=== PATIENT | male | born 1970 | race Caucasian/White ===

== ENCOUNTER 2024-12-10 05:38 | Observation (INO) ==
[2024-12-10 06:46] LABS: Basophils # (auto) 0.05 K/uL (0.00-0.20); Basophils % (auto) 0.5 %; Eosinophils # (auto) 0.07 K/uL (0.00-0.50); Eosinophils % (auto) 0.7 %; Hematocrit (blood only) 34.6 % (42.0-52.0); Hemoglobin 11.4 g/dl (14.0-18.0); Immature Granulocytes # (auto) 0.05 K/uL (0.01-0.20); Immature Granulocytes % (auto) 0.5 %; Lymphocytes # (auto) 1.29 K/uL (1.20-3.40); Lymphocytes % (auto) 13.1 %; Mean Corpuscular Hgb Conc 32.9 g/dL (32.0-36.0); Mean Platelet Volume 10.8 fL (9.4-12.4); Monocytes # (auto) 0.84 K/uL (0.11-0.59); Monocytes % (auto) 8.5 %; Neutrophils # (auto) 7.54 K/uL (1.40-6.50); Neutrophils % (auto) 76.7 %; Platelet Count 389 K/uL (130-400); RDW Coefficient of Variation 14.6 % (11.5-14.5); RDW Standard Deviation 47.8 fL (36.4-46.3); Red Blood Count 3.93 M/uL (4.70-6.10); White Blood Count 9.84 K/ul (4.8-10.8)
[2024-12-10 07:00] LABS: Albumin Globulin Ratio 1.1 (0.9-2); Albumin Level 3.6 gm/dl (3.4-5.0); BUN Creatinine Ratio 14.6 (10-20); Bilirubin,Total 1.3 mg/dl (0.2-1.0); Calcium 9.5 mg/dl (8.6-10.3); Creatinine Clr Calc Pharmacy 93.2 ml/min; Globulin 3.2 gm/dl (2.5-4.0); Potassium 4.8 mmol/L (3.5-5.1); Total Protein 6.8 gm/dl (6.0-8.3)
[2024-12-10] MEDS: ACETAMINOPHEN 1,000 MG/100 ML VIAL IV STA (07:04)
[2024-12-10] MEDS: OPTIRAY 320 100ml IV ONE (07:09)
[2024-12-10 07:25] LABS: INR 3.8 (0.9-1.1); Partial Thromboplastin Time 55 Seconds (21-31); Prothrombin Time 36.3 Seconds (9.0-12.0)
--- NOTE | 2024-12-10 07:33 | Emergency Department Note ---
History of Present Illness General Chief Complaint: Abdominal Pain Stated Complaint: ABDOMINAL PAIN AND SWELLING, HX OF OBSTRUCTIONS Time Seen by Provider: 12/10/24 06:33 History of Present Illness Provider Complaint: abdominal pain Onset (ago): 1 day(s) Location: RUQ Maximum Pain Intensity: 3 Current Pain Intensity: 3 Quality: + stabbing and + sharp Relieved By: + nothing Exacerbated By: + nothing Context: no foreign travel, no possible food poisoning, no sick contacts, no recent antibiotic use, no recent surgery/procedure or no recent injury Associated Symptoms: no nausea, no vomiting, no fever and no chills Home Medications Medication Instructions Recorded Confirmed Type Dextrose 50% 12.5 g IV DIRECTED PRN 12/10/24 12/10/24 History Hypoglycemia Dextrose 50% 25 g IV DIRECTED PRN 12/10/24 12/10/24 History Hypoglycemia Fleet Enema 133 ml [place] DAILY PRN Constipation 12/10/24 12/10/24 History acetaminophen 325 mg tablet 650 mg PO Q4H PRN Pain 12/10/24 12/10/24 History acetaminophen 500 mg tablet 500 mg PO Q4H PRN Fever 12/10/24 12/10/24 History amlodipine 10 mg tablet 2.5 mg PO DAILY 12/10/24 12/10/24 History atorvastatin 40 mg tablet 40 mg PO DAILY 12/10/24 12/10/24 History baclofen 10 mg tablet 10 mg PO DAILY 12/10/24 12/10/24 History bisacodyl 10 mg rectal suppository 10 mg [place] DAILY PRN Constipation 12/10/24 12/10/24 History calcium carbonate 500 mg PO Q8H PRN Indigestion 12/10/24 12/10/24 History docusate sodium 100 mg capsule 100 mg PO BID PRN Constipation 12/10/24 12/10/24 History glucagon 1 mg solution for 1 mg IM DIRECTED PRN 12/10/24 12/10/24 History injection Hypoglycemia lisinopril 5 mg tablet 5 mg PO DAILY 12/10/24 12/10/24 History ondansetron HCl 4 mg tablet 4 mg PO Q6H PRN n/v 12/10/24 12/10/24 History polyethylene glycol 3350 17 17 g PO .LUNCH PRN Constipation 12/10/24 12/10/24 History gram/dose oral powder (Miralax) sennosides 8.6 mg-docusate sodium 1 tab-cap PO .LUNCH PRN 12/10/24 12/10/24 History 50 mg tablet (Senokot-S) Constipation tamsulosin 0.4 mg capsule 0.4 mg PO DAILY 12/10/24 12/10/24 History venlafaxine 75 mg capsule,extended 75 mg PO DAILY 12/10/24 12/10/24 History release 24 hr warfarin 5 mg tablet 5 mg PO UD 12/10/24 12/10/24 History Allergies Allergy/AdvReac Type Severity Reaction Status Date / Time bee venom protein (honey bee) Allergy Unknown Verified 12/10/24 09:58 Cephalosporins Allergy Unknown Verified 12/10/24 09:58 penicillin G Allergy Unknown Verified 12/10/24 09:58 Past Med/Surg History Problem List (Updated 12/10/24 @ 10:29 by Jarad Pablo PA-C) H/O ischemic left MCA stroke Abdominal hematoma (Acute) Medical History (Updated 12/10/24 @ 10:29 by Jarad Pablo PA-C) CVA (cerebral vascular accident) Surgical History (Updated 12/10/24 @ 07:31 by Carson Sánchez MD) Mechanical heart valve present Social History Smoking Status: Never smoker Feels Safe at Home: Yes Physical Exam 2 Vital Signs: Vital Signs - 24 hr 12/10/24 05:43 12/10/24 05:43 12/10/24 05:46 Temperature Temperature Source Pulse Rate 92 H Pulse Rate [Right Finger] Pulse Rate from Sp O2 Sensor Pulse Rhythm [Righ t Finger] Pulse Strength [Ri ght Finger] Respiratory Rate Respiratory Effort / Characteristics Respiratory Depth Respiratory Patter n Blood Pressure 144/111 H 144/111 H Blood Pressure [Ri ght Arm] Blood Pressure Alesia n 117 117 Blood Pressure Alesia n [Right Arm] Blood Pressure Pos ition Blood Pressure Pos ition [Right Arm] Pulse Oximetry Oxygen Delivery Me thod Oxygen Flow Rate Sepsis Recent Feve r Within 48 Hours Sepsis New/Unexpla ined Change in Men cassandra Status Sepsis Action Take n by Nursing 12/10/24 06:00 12/10/24 06:15 12/10/24 06:15 Temperature 36.6 C Temperature Source Oral Pulse Rate 79 92 H Pulse Rate [Right Finger] 82 Pulse Rate from Sp O2 Sensor 78 Pulse Rhythm [Righ t Finger] Regular Pulse Strength [Ri ght Finger] Normal Respiratory Rate 30 H 30 H 17 Respiratory Effort / Characteristics Spontaneous Non-Labored [place] Respiratory Depth Normal Normal Respiratory Patter n Regular Regular Blood Pressure 144/111 H Blood Pressure [Ri ght Arm] 144/111 H Blood Pressure Alesia n 122 Blood Pressure Alesia n [Right Arm] 122 Blood Pressure Pos ition Lying Blood Pressure Pos ition [Right Arm] Lying Pulse Oximetry 90 100 94 Oxygen Delivery Me thod Oxymask Room Air Oxygen Flow Rate 4 Sepsis Recent Feve r Within 48 Hours No Sepsis New/Unexpla ined Change in Men cassandra Status No Sepsis Action Take n by Nursing No Action Required 12/10/24 06:15 12/10/24 06:30 12/10/24 06:42 Temperature Temperature Source Pulse Rate 82 82 95 H Pulse Rate [Right Finger] Pulse Rate from Sp O2 Sensor 83 95 H Pulse Rhythm [Righ t Finger] Pulse Strength [Ri ght Finger] Respiratory Rate 14 24 27 H Respiratory Effort / Characteristics Respiratory Depth Respiratory Patter n Blood Pressure Blood Pressure [Ri ght Arm] Blood Pressure Alesia n Blood Pressure Alesia n [Right Arm] Blood Pressure Pos ition Blood Pressure Pos ition [Right Arm] Pulse Oximetry 99 94 99 Oxygen Delivery Me thod Room Air Oxygen Flow Rate Sepsis Recent Feve r Within 48 Hours Sepsis New/Unexpla ined Change in Men cassandra Status Sepsis Action Take n by Nursing 12/10/24 07:08 12/10/24 07:08 12/10/24 07:08 Temperature Temperature Source Pulse Rate Pulse Rate [Right Finger] 93 H Pulse Rate from Sp O2 Sensor Pulse Rhythm [Righ t Finger] Pulse Strength [Ri ght Finger] Respiratory Rate 20 Respiratory Effort / Characteristics Respiratory Depth Respiratory Patter n Blood Pressure 133/92 133/92 Blood Pressure [Ri ght Arm] 133/92 Blood Pressure Alesia n 111 111 Blood Pressure Alesia n [Right Arm] 105 Blood Pressure Pos ition Blood Pressure Pos ition [Right Arm] Pulse Oximetry 99 Oxygen Delivery Me thod Oxymask Oxygen Flow Rate 5 Sepsis Recent Feve r Within 48 Hours Sepsis New/Unexpla ined Change in Men cassandra Status Sepsis Action Take n by Nursing 12/10/24 07:12 12/10/24 07:38 12/10/24 07:38 Temperature Temperature Source Pulse Rate 96 H Pulse Rate [Right Finger] Pulse Rate from Sp O2 Sensor 90 Pulse Rhythm [Righ t Finger] Pulse Strength [Ri ght Finger] Respiratory Rate 18 Respiratory Effort / Characteristics Respiratory Depth Respiratory Patter n Blood Pressure 141/94 H 141/94 H Blood Pressure [Ri ght Arm] Blood Pressure Alesia n 115 115 Blood Pressure Alesia n [Right Arm] Blood Pressure Pos ition Blood Pressure Pos ition [Right Arm] Pulse Oximetry 98 Oxygen Delivery Me thod Oxygen Flow Rate Sepsis Recent Feve r Within 48 Hours Sepsis New/Unexpla ined Change in Men cassandra Status Sepsis Action Take n by Nursing 12/10/24 07:47 12/10/24 07:57 12/10/24 08:00 Temperature Temperature Source Pulse Rate 99 H 97 H Pulse Rate [Right Finger] 96 H Pulse Rate from Sp O2 Sensor 94 H 97 H Pulse Rhythm [Righ t Finger] Pulse Strength [Ri ght Finger] Respiratory Rate 20 25 H 29 H Respiratory Effort / Characteristics Respiratory Depth Respiratory Patter n Blood Pressure Blood Pressure [Ri ght Arm] 141/94 H Blood Pressure Alesia n Blood Pressure Alesia n [Right Arm] 109 Blood Pressure Pos ition Blood Pressure Pos ition [Right Arm] Pulse Oximetry 94 87 L 98 Oxygen Delivery Me thod Oxymask Oxygen Flow Rate 2 Sepsis Recent Feve r Within 48 Hours Sepsis New/Unexpla ined Change in Men cassandra Status Sepsis Action Take n by Nursing 12/10/24 08:00 12/10/24 08:21 12/10/24 08:30 Temperature Temperature Source Pulse Rate 92 H 103 H Pulse Rate [Right Finger] Pulse Rate from Sp O2 Sensor 93 H 100 H Pulse Rhythm [Righ t Finger] Pulse Strength [Ri ght Finger] Respiratory Rate 27 H 23 Respiratory Effort / Characteristics Respiratory Depth Respiratory Patter n Blood Pressure 142/95 H Blood Pressure [Ri ght Arm] Blood Pressure Alesia n 100 Blood Pressure Alesia n [Right Arm] Blood Pressure Pos ition Blood Pressure Pos ition [Right Arm] Pulse Oximetry 96 100 Oxygen Delivery Me thod Oxygen Flow Rate Sepsis Recent Feve r Within 48 Hours Sepsis New/Unexpla ined Change in Men cassandra Status Sepsis Action Take n by Nursing 12/10/24 08:31 12/10/24 08:31 12/10/24 08:32 Temperature Temperature Source Pulse Rate Pulse Rate [Right Finger] 93 H Pulse Rate from Sp O2 Sensor Pulse Rhythm [Righ t Finger] Pulse Strength [Ri ght Finger] Respiratory Rate 20 Respiratory Effort / Characteristics Respiratory Depth Respiratory Patter n Blood Pressure 150/100 H 150/100 H Blood Pressure [Ri ght Arm] 150/100 H Blood Pressure Alesia n 126 126 Blood Pressure Alesia n [Right Arm] 116 Blood Pressure Pos ition Blood Pressure Pos ition [Right Arm] Pulse Oximetry 97 Oxygen Delivery Me thod Oxymask Oxygen Flow Rate 2 Sepsis Recent Feve r Within 48 Hours Sepsis New/Unexpla ined Change in Men cassandra Status Sepsis Action Take n by Nursing 12/10/24 08:42 12/10/24 08:51 12/10/24 08:57 Temperature Temperature Source Pulse Rate 94 H 95 H 90 Pulse Rate [Right Finger] Pulse Rate from Sp O2 Sensor 94 H 94 H 89 Pulse Rhythm [Righ t Finger] Pulse Strength [Ri ght Finger] Respiratory Rate 28 H 25 H 28 H Respiratory Effort / Characteristics Respiratory Depth Respiratory Patter n Blood Pressure Blood Pressure [Ri ght Arm] Blood Pressure Alesia n Blood Pressure Alesia n [Right Arm] Blood Pressure Pos ition Blood Pressure Pos ition [Right Arm] Pulse Oximetry 97 98 97 Oxygen Delivery Me thod Oxygen Flow Rate Sepsis Recent Feve r Within 48 Hours Sepsis New/Unexpla ined Change in Men cassandra Status Sepsis Action Take n by Nursing 12/10/24 09:00 12/10/24 09:00 12/10/24 09:06 Temperature Temperature Source Pulse Rate 92 H Pulse Rate [Right Finger] Pulse Rate from Sp O2 Sensor 90 Pulse Rhythm [Righ t Finger] Pulse Strength [Ri ght Finger] Respiratory Rate 25 H Respiratory Effort / Characteristics Respiratory Depth Respiratory Patter n Blood Pressure 133/95 133/95 Blood Pressure [Ri ght Arm] Blood Pressure Alesia n 105 105 Blood Pressure Alesia n [Right Arm] Blood Pressure Pos ition Blood Pressure Pos ition [Right Arm] Pulse Oximetry 97 Oxygen Delivery Me thod Oxygen Flow Rate Sepsis Recent Feve r Within 48 Hours Sepsis New/Unexpla ined Change in Men cassandra Status Sepsis Action Take n by Nursing 12/10/24 09:12 12/10/24 09:21 12/10/24 09:30 Temperature Temperature Source Pulse Rate 90 94 H Pulse Rate [Right Finger] 89 Pulse Rate from Sp O2 Sensor 88 91 H Pulse Rhythm [Righ t Finger] Pulse Strength [Ri ght Finger] Respiratory Rate 20 26 H 24 Respiratory Effort / Characteristics Respiratory Depth Respiratory Patter n Blood Pressure Blood Pressure [Ri ght Arm] 133/95 Blood Pressure Alesia n Blood Pressure Alesia n [Right Arm] 107 Blood Pressure Pos ition Blood Pressure Pos ition [Right Arm] Pulse Oximetry 98 94 97 Oxygen Delivery Me thod Oxymask Oxygen Flow Rate 2 Sepsis Recent Feve r Within 48 Hours Sepsis New/Unexpla ined Change in Men cassandra Status Sepsis Action Take n by Nursing 12/10/24 09:34 12/10/24 09:34 12/10/24 09:36 Temperature Temperature Source Pulse Rate 90 Pulse Rate [Right Finger] Pulse Rate from Sp O2 Sensor 89 Pulse Rhythm [Righ t Finger] Pulse Strength [Ri ght Finger] Respiratory Rate 25 H Respiratory Effort / Characteristics Respiratory Depth Respiratory Patter n Blood Pressure 133/93 133/93 Blood Pressure [Ri ght Arm] Blood Pressure Alesia n 106 106 Blood Pressure Alesia n [Right Arm] Blood Pressure Pos ition Blood Pressure Pos ition [Right Arm] Pulse Oximetry 97 Oxygen Delivery Me thod Oxygen Flow Rate Sepsis Recent Feve r Within 48 Hours Sepsis New/Unexpla ined Change in Men cassandra Status Sepsis Action Take n by Nursing 12/10/24 09:52 12/10/24 10:00 12/10/24 10:00 Temperature Temperature Source Pulse Rate 87 Pulse Rate [Right Finger] Pulse Rate from Sp O2 Sensor Pulse Rhythm [Righ t Finger] Pulse Strength [Ri ght Finger] Respiratory Rate Respiratory Effort / Characteristics Respiratory Depth Respiratory Patter n Blood Pressure 136/98 136/98 Blood Pressure [Ri ght Arm] Blood Pressure Alesia n 106 106 Blood Pressure Alesia n [Right Arm] Blood Pressure Pos ition Blood Pressure Pos ition [Right Arm] Pulse Oximetry Oxygen Delivery Me thod Oxygen Flow Rate Sepsis Recent Feve r Within 48 Hours Sepsis New/Unexpla ined Change in Men cassandra Status Sepsis Action Take n by Nursing 12/10/24 10:00 12/10/24 10:00 12/10/24 10:03 Temperature Temperature Source Pulse Rate 86 Pulse Rate [Right Finger] Pulse Rate from Sp O2 Sensor 81 Pulse Rhythm [Righ t Finger] Pulse Strength [Ri ght Finger] Respiratory Rate 27 H Respiratory Effort / Characteristics Respiratory Depth Respiratory Patter n Blood Pressure 136/98 136/98 Blood Pressure [Ri ght Arm] Blood Pressure Alesia n 106 106 Blood Pressure Alesia n [Right Arm] Blood Pressure Pos ition Blood Pressure Pos ition [Right Arm] Pulse Oximetry 98 Oxygen Delivery Me thod Oxygen Flow Rate Sepsis Recent Feve r Within 48 Hours Sepsis New/Unexpla ined Change in Men cassandra Status Sepsis Action Take n by Nursing 12/10/24 10:18 12/10/24 10:30 12/10/24 10:30 Temperature Temperature Source Pulse Rate 86 87 Pulse Rate [Right Finger] Pulse Rate from Sp O2 Sensor 86 84 Pulse Rhythm [Righ t Finger] Pulse Strength [Ri ght Finger] Respiratory Rate 22 25 H Respiratory Effort / Characteristics Respiratory Depth Respiratory Patter n Blood Pressure 131/93 Blood Pressure [Ri ght Arm] Blood Pressure Alesia n 112 Blood Pressure Alesia n [Right Arm] Blood Pressure Pos ition Blood Pressure Pos ition [Right Arm] Pulse Oximetry 94 91 Oxygen Delivery Me thod Oxygen Flow Rate Sepsis Recent Feve r Within 48 Hours Sepsis New/Unexpla ined Change in Men cassandra Status Sepsis Action Take n by Nursing 12/10/24 10:30 12/10/24 10:48 Temperature Temperature Source Pulse Rate Pulse Rate [Right Finger] 90 Pulse Rate from Sp O2 Sensor Pulse Rhythm [Righ t Finger] Pulse Strength [Ri ght Finger] Respiratory Rate 20 Respiratory Effort / Characteristics Respiratory Depth Respiratory Patter n Blood Pressure 131/93 Blood Pressure [Ri ght Arm] 131/93 Blood Pressure Alesia n 112 Blood Pressure Alesia n [Right Arm] 105 Blood Pressure Pos ition Blood Pressure Pos ition [Right Arm] Pulse Oximetry 98 Oxygen Delivery Me thod Oxymask Oxygen Flow Rate 2 Sepsis Recent Feve r Within 48 Hours Sepsis New/Unexpla ined Change in Men cassandra Status Sepsis Action Take n by Nursing Physical Exam: Physical Exam HENT: Exam performed. - Head: Normocephalic and atraumatic. EYES: Conjunctivae and EOM are normal. Right eye exhibits no discharge. Left eye exhibits no discharge. No scleral icterus. NECK: Normal range of motion. Neck supple. No JVD present. CV: Normal rate, regular rhythm, normal heart sounds and intact distal pulses. There is no peripheral edema. Palpable radial pulses bue. PULM/CHEST: Effort normal and breath sounds normal. No respiratory distress. No stridor. no wheezes. no rales. ABD: The abdomen is soft. There is diffuse tenderness to palpation. NEURO: Mild expressive aphasia. Dysarthria. Right-sided hemiparesis. All baseline secondary to patient's stroke. Course Course 06: The patient was evaluated in room A3. A complete history and physical exam was performed Cardiac monitoring: An order was placed for continuous cardiac monitoring. The monitor shows a rate of 100 with sinus rhythm interpreted by me 0919: Vital signs stable. Labs show therapeutic INR, hemoglobin and white blood cell count were within normal limits. Patient's scan shows a 13 x 5 x 7 cm hematoma adjacent to the bladder. Patient reports no trauma or fall. Discussed with general surgery Nain and Dr. Trever Carter's who reviewed the patient's scans. They recommended admitting to medicine and they will be on consult. No surgical invention planned at this time. Administered Medications Magnesium Sulfate/Dextrose (Magnesium Sulfate / D5w) 1 gm in 100 mls @ 50 mls/hr IV ONE ONE Stop: 12/10/24 13:14 Last Admin: 12/10/24 11:15 Dose: 50 mls/hr Documented By: VIR[place]IA Discontinued Medications Acetaminophen (Ofirmev) 1,000 mg in 100 mls @ 400 mls/hr IV NOW STA Stop: 12/10/24 06:25 Last Infusion: 12/10/24 07:30 Dose: Infused Documented By: Admin: 12/10/24 07:04 Dose: 400 mls/hr Documented By: VIR[place]IA Ioversol (Optiray 320 100ml) 94 ml IV ONCE ONE Stop: 12/10/24 07:09 Last Admin: 12/10/24 07:09 Dose: 94 ml Documented By: CAM Medical Decision Making Laboratory Data Attestation: I reviewed the patient's lab results. 12/10/24 10:59 12/10/24 06:10 Lab Results 12/10/24 12/10/24 12/10/24 Range/Units 06:10 08:55 10:59 WBC 9.84 (4.8-10.8) K/ul RBC 3.93 L (4.70-6.10) M/uL Hgb 11.4 L 11.3 L (14.0-18.0) g/dl Hct 34.6 L 33.6 L (42.0-52.0) % MCV 88.0 (80.0-100.0) fL MCH 29.0 (25.0-34.0) pg MCHC 32.9 (32.0-36.0) g/dL RDW Std Deviation 47.8 H (36.4-46.3) fL RDW Coeff of Starla 14.6 H (11.5-14.5) % Plt Count 389 (130-400) K/uL MPV 10.8 (9.4-12.4) fL Immature Gran % (Auto) 0.5 % Neut % (Auto) 76.7 % Lymph % (Auto) 13.1 % [place] % (Auto) 8.5 % Eos % (Auto) 0.7 % Baso % (Auto) 0.5 % Neut # (Auto) 7.54 H (1.40-6.50) K/uL Lymph # (Auto) 1.29 (1.20-3.40) K/uL [place] # (Auto) 0.84 H (0.11-0.59) K/uL Eos # (Auto) 0.07 (0.00-0.50) K/uL Baso # (Auto) 0.05 (0.00-0.20) K/uL Immature Gran # (Auto) 0.05 (0.01-0.20) K/uL PT 36.3 H (9.0-12.0) Seconds INR 3.8 H (0.9-1.1) APTT 55 H (21-31) Seconds PTT Ratio 2.0 Sodium 141 (136-145) mmol/L Potassium 4.8 (3.5-5.1) mmol/L Chloride 106 (98-107) mmol/L Carbon Dioxide 27 (21-32) mmol/L Anion Gap 8 (3-11) BUN 18 (6-23) mg/dl Creatinine 1.23 (0.6-1.4) mg/dl Est Cr Clr Drug Dosing 93.2 ml/min eGFR 69.77 BUN/Creatinine Ratio 14.6 (10-20) Glucose 131 H (70-99(Fasting)) mg/dl Calcium 9.5 (8.6-10.3) mg/dl Magnesium 1.6 L (1.7-2.4) mg/dl Total Bilirubin 1.3 H (0.2-1.0) mg/dl AST 21 (13-39) U/L ALT 28 (7-52) U/L Alkaline Phosphatase 65 (34-104) U/L Total Protein 6.8 (6.0-8.3) gm/dl Albumin 3.6 (3.4-5.0) gm/dl Globulin 3.2 (2.5-4.0) gm/dl Albumin/Globulin Ratio 1.1 (0.9-2) Lipase 66 (11-82) U/L Urine Color Yellow Urine Appearance Clear (Clear) Urine pH 8.0 H (4.5-7.5) Ur Specific [place] 1.032 H (1.000-1.030) Urine Protein 1+ H (Negative) Urine Glucose (UA) Negative (Negative) Urine Ketones Negative (Negative) Urine Blood 1+ H (Negative) Urine Nitrite Negative (Negative) Urine Bilirubin Negative (Negative) Urine Urobilinogen Negative (Negative) Ur Leukocyte Esterase Negative (Negative) Urine WBC (Auto) 0-5 (0-5) /hpf Urine RBC (Auto) 0-2 (0-2) /hpf U Hyaline Cast (Auto) 0-2 (0-2) /lpf U Epithel Cells (Auto) 0-2 (0-2) /hpf Urine Bacteria (Auto) None Seen (None Seen) Imaging Data Radiologist's Impression: Abdomen/Pelvis CT 12/10/24 06:[address] WITH IV CONTRAST CT DOSE: 1507.39 mGy.cm HISTORY: abd pain TECHNIQUE: Multiaxial CT images of the abdomen and pelvis were performed following the IV administration of 90 cc of Optiray, A dose lowering technique was utilized adhering to the principles of ALARA. COMPARISON STUDY: None. FINDINGS: There is mild elevation of the left hemidiaphragm with mild atelectasis in the lung bases. ABDOMEN: There is spray and motion artifact. There are a few small cysts at the liver. Otherwise the liver, gallbladder, pancreas, and adrenal glands are unremarkable. There is a small peripheral wedge-shaped hypodensity at the spleen which has morphology consistent with small old infarction or sequela of prior injury. There is moderate cortical scarring at both kidneys. There is a likely small cyst of the left kidney. There is no hydronephrosis or renal calculi. There are scattered atherosclerotic calcifications. No abdominal aortic aneurysm. Pelvis: There is a 13 cm AP by 5 cm transverse by 7 cm craniocaudad oval lobulated mixed density finding in the right lower pelvis adjacent to the urinary bladder which has morphology suggestive of hematoma. There is mild adjacent wall thickening at the right lateral aspect of the urinary bladder. Prostate is mildly enlarged. Urinary bladder is mildly distended. There is moderate retained stool. No bowel inflammation or obstruction seen. Other than the right pelvic finding, no free fluid, free air, or abscess seen. No enlarged adenopathy. Osseous structures: There is mild lumbar degenerative disc disease. There are mild degenerative changes at the hips. No acute fractures seen in the visualized osseous structures. IMPRESSION: 1. Finding at the right pelvis has morphology suggesting subacute hematoma. Follow-up to resolution recommended to rule out underlying mass. 2. There is adjacent wall thickening at the right lateral aspect of the urinary bladder which could represent reactive inflammation. Follow-up to resolution recommended. 3. No other acute findings seen. Otherwise as described. ACT 112: Positive. There are findings on this exam that require communication between the performing entity and the patient following Patient Test Result Information Act ([place] Act 112) guidelines. The above report was generated using voice recognition software. It may contain grammatical, syntax or spelling errors. Electronically signed by: Travis Lowe M.D. 12/10/2024 8:29 AM ECG Data Attestation: I personally reviewed and interpreted this ECG as follows: Rate (beats per minute): 100 Rhythm: normal sinus Findings: + other (LVH); no ST depression, no ST elevation or no prolonged QT MDM Narrative 0633: The patient was evaluated in room A3. A complete history and physical exam was performed Cardiac monitoring: An order was placed for continuous cardiac monitoring. The monitor shows a rate of 100 with sinus rhythm interpreted by me 0919: Vital signs stable. Labs show therapeutic INR, hemoglobin and white blood cell count were within normal limits. Patient's scan shows a 13 x 5 x 7 cm hematoma adjacent to the bladder. Patient reports no trauma or fall. Discussed with general surgery Nain and Dr. Trever Carter's who reviewed the patient's scans. They recommended admitting to medicine and they will be on consult. No surgical invention planned at this time. Impression & Plan Abdominal hematoma Discharge Plan Visit Data Chief Complaint: Abdominal Pain Stated Complaint: ABDOMINAL PAIN AND SWELLING, HX OF OBSTRUCTIONS ED Provider: Carsno Sánchez Discharge Problem: Abdominal hematoma Patient Disposition: Being Evaluated by Hospitalist Forms Stand Alone Forms: My [facility] Prescriptions Prescriptions: No Action atorvastatin 40 mg tablet 40 mg PO DAILY Rx Instructions: filled 12/02/34 30 day supply venlafaxine 75 mg capsule,extended release 24hr 75 mg PO DAILY Rx Instructions: last filled 11/15/24 30 day supply tamsulosin 0.4 mg capsule 0.4 mg PO DAILY Rx Instructions: filled 12/02/24 30 day supply baclofen 10 mg tablet 10 mg PO DAILY Rx Instructions: 12/02/24 30 day supply #30 amlodipine 10 mg tablet 2.5 mg PO DAILY Rx Instructions: last filled 11/15/24 30 day supply warfarin 5 mg tablet 5 mg PO UD Rx Instructions: start date 12.09 21:00:00 target INR 2.5-3.5 stop date 12/09/24 23:59:00 acetaminophen 325 mg Tablet 650 mg PO Q4H PRN (Reason: Pain) ondansetron HCl [Zofran] 4 mg Tablet 4 mg PO Q6H PRN (Reason: n/v) sennosides-docusate sodium [Senokot-S] 8.6-50 mg Tablet 1 tab-cap PO .LUNCH PRN (Reason: Constipation) acetaminophen 500 mg Tablet 500 mg PO Q4H PRN (Reason: Fever) bisacodyl 10 mg Suppository 10 mg [place] DAILY PRN (Reason: Constipation) docusate sodium 100 mg Capsule 100 mg PO BID PRN (Reason: Constipation) calcium carbonate 500 mg calcium (1,250 mg) Tablet,Chewable 500 mg PO Q8H PRN (Reason: Indigestion) lisinopril 5 mg Tablet 5 mg PO DAILY glucagon 1 mg Recon Soln 1 mg IM DIRECTED PRN (Reason: Hypoglycemia) polyethylene glycol 3350 [Miralax] 17 gram/dose Powder 17 g PO .LUNCH PRN (Reason: Constipation) Dextrose 50% 12.5 g IV DIRECTED PRN (Reason: Hypoglycemia) Dextrose 50% 25 g IV DIRECTED PRN (Reason: Hypoglycemia) Fleet Enema 133 ml [place] DAILY PRN (Reason: Constipation) Referrals Referrals: NANY PUENTE [Other]
[2024-12-10 07:58] LABS: Magnesium 1.6 mg/dl (1.7-2.4)
--- NOTE | 2024-12-10 08:32 | CT Scan Report ---
ABDOMEN AND PELVIS CT WITH IV CONTRAST CT DOSE: 1507.39 mGy.cm HISTORY: abd pain TECHNIQUE: Multiaxial CT images of the abdomen and pelvis were performed following the IV administrat ion of 90 cc of Optiray, A dose lowering technique was utilized adhering to the principles of ALARA. COMPARISON STUDY: None. FINDINGS: There is mild elevation of the left hemidiaphragm with mild atelectasis in the lung bases. ABDOMEN: There is spray and motion artifact. There are a few small cysts at the liver. Otherwise the liver, gallbladder, pancreas, and adrenal glands are unremarkable. There is a small peripheral wedge- shaped hypodensity at the spleen which has morphology consistent with small old infarction or sequela of prior injury. There is moderate cortical scarring at both kidneys. There is a likely small cyst o f the left kidney. There is no hydronephrosis or renal calculi. There are scattered atherosclerotic c alcifications. No abdominal aortic aneurysm. Pelvis: There is a 13 cm AP by 5 cm transverse by 7 cm craniocaudad oval lobulated mixed density find ing in the right lower pelvis adjacent to the urinary bladder which has morphology suggestive of patti aniceto. There is mild adjacent wall thickening at the right lateral aspect of the urinary bladder. Pros garza is mildly enlarged. Urinary bladder is mildly distended. There is moderate retained stool. No kendrick wel inflammation or obstruction seen. Other than the right pelvic finding, no free fluid, free air, o r abscess seen. No enlarged adenopathy. Osseous structures: There is mild lumbar degenerative disc disease. There are mild degenerative loaiza es at the hips. No acute fractures seen in the visualized osseous structures. IMPRESSION: 1. Finding at the right pelvis has morphology suggesting subacute hematoma. Follow-up to resolution r ecommended to rule out underlying mass. 2. There is adjacent wall thickening at the right lateral aspect of the urinary bladder which could r epresent reactive inflammation. Follow-up to resolution recommended. 3. No other acute findings seen. Otherwise as described. ACT 112: Positive. There are findings on this exam that require communication between the performing entity and the patient following Patient Test Result Information Act ([place] Act 112) guidelines. The above report was generated using voice recognition software. It may contain grammatical, syntax o r spelling errors. Electronically signed by: Travis Lowe M.D. 12/10/2024 8:29 AM
[2024-12-10 09:24] LABS: Appearance Urine Clear (Clear); Bacteria Urine Automated None Seen (None Seen); Bilirubin Urine Negative (Negative); Blood Urine 1+ (Negative); Cast Urine Automated 0-2 /lpf (0-2); Color Urine Yellow; Epithelial Cell Urine Auto 0-2 /hpf (0-2); Glucose Urine UA Negative (Negative); Ketones Urine Negative (Negative); Leukocyte Esterase Urine Negative (Negative); Nitrite Urine Negative (Negative); Protein Urine 1+ (Negative); RBC Urine Automated 0-2 /hpf (0-2); Specific Gravity Urine 1.032 (1.000-1.030); Urobilinogen Urine Negative (Negative); WBC Urine Automated 0-5 /hpf (0-5)
--- NOTE | 2024-12-10 09:39 | History & Physical Report ---
Date of Service December 10, 2024 Assessment & Plan (1) Abdominal hematoma: (2) H/O ischemic left MCA stroke: Plan This patient is a 54-year-old male with remote history of left MCA stroke who presented on 12/10 for right upper quadrant abdominal pain and hypoactive bowel sounds. Found to have a subacute hematoma in the right pelvis on arrival. #Abdominal hematoma Hemodynamically stable on admission A/P CT with contrast on arrival suggestive of a subacute hematoma in the right pelvis General Surgery consult appreciated No plan for surgical intervention at this time Per review of [facility] notes, patient's Hgb was 10.5 on 12/03 His Hgb was 11.4 on 12/10 (which is ~1.0 g/dL improvement over the course of the week) Update: Obtained A/P CTA performed [facility] 11/[facility] at [facility] with the following impression: 1. Hematoma within the right lower abdomen adjacent to the bladder without evidence of active extravasation 2. Small hematoma adjacent to the right femoral access site without evidence of active extravasation 3. 1.5 cm focus of contrast adjacent to the right femoral artery consistent with pseudoaneurysm 4. No splenic hypodensity of the inferior spleen which may represent area of ischemia It appears that this abdominal hematoma was present following the patient's original fall on 11/22 No reported falls or acute trauma at [facility] Do not suspect this is an acute/active bleed However, given patient's new onset of intermittent distress (RUQ abdominal pain and chest pain), will monitor on observation overnight Trend H&H #H/o left MCA stroke/ right-sided hemiplegia / expressive aphasia Remote history of patient fall and head strike on Eliquis Patient fell off his couch on 11/22 and hit the side of his head CTA H/N showed a left M1 subocclusion thrombus and P1 cutoff Patient was not a TNK candidate given his last known well Transferred to the [facility] for [facility]ectomy There, his brain MRI showed a a left CVA infarct Etiology was suspected to be cardioembolic in the setting of mechanical aortic valve (even though pt was on Eliquis at the time) Discharged to [facility] on 12/02 PT/OT consults appreciated #H/o mechanical aortic valve replacement in 1998 Per review of [facility] notes: PT/INR was 2.2 on 12/04 PT/INR was 3.1 on 12/09 Warfarin was held on 12/09 PT/INR was 3.8 on 12/10 Hold warfarin Trend PT/INR #Chest pain Per nursing staff at [facility], patient reported chest pain protocol was activated 1 night [employer] EKG and troponin ordered, pending Clinically, patient denies chest pain at time of admission, however he is currently poor historian given history of stroke/expressive aphasia Continuous telemetry monitoring for now #Constipation Continue current bowel regimen #Dyslipidemia Continue atorvastatin #Anxiety Continue venlafaxine #HTN Continue amlodipine [facility] PPx: Hold warfarin; teds History of Present Illness Chief Complaint: Abdominal pain Primary Care Provider: NANY Hough is a 54-year-old male with PMH of left MCA stroke, right sided hemiplegia, expressive aphasia, HTN, anxiety, dyslipidemia, BPH, and aortic valve replacement 1998 (previously on Eliquis). Presented on 12/10 from [facility] for right upper quadrant abdominal pain and hypoactive bowel sounds. Patient is a poor historian on admission due to his history of left CVA infarct and expressive aphasia. No caretakers of any members at bedside. Patient is unsure why he is in the hospital. He is not alert and oriented to location, , month, or purpose. When asked if he has any pain, he reports he does not. Patient reports he does not use supplemental oxygen at home. Patient is mildly tachypneic at 26 RPM at time admission; SpO2 94% on 2L oxy mask. ED course: Acetaminophen 1000 mg IV Unable to obtain ROS at this time given patient's expressive aphasia. Per review of notes sent over from [facility]: Patient coming in for RUQ abdominal pain and hypoactive bowel sounds. Last BM reported to be04/19/2025. Still passing gas. He is currently on an aggressive bowel regimen. Patient has remote history of left CVA infarct requiring transfer to [facility] where he underwent a mechanical thrombectomy. The etiology was suspected to be cardioembolic in the setting of mechanical aortic valve replacement even though he was on Eliquis at the time. Called [facility]: Spoke with nursing staff (Jerson JACOBS). Per his review, there have been no reported falls or injuries to the abdomen or pelvis since he has been at [facility]. Last night before bed, he did complain of chest pain and was given nitro at 2140, Maalox at 2144, and a suppository at 2300. A troponin was not drawn at this time. He was then in distress again around 0430. Allergies Allergy/AdvReac Type Severity Reaction Status Date / Time bee venom protein (honey bee) Allergy Unknown Verified 12/10/24 09:58 Cephalosporins Allergy Unknown Verified 12/10/24 09:58 penicillin G Allergy Unknown Verified 12/10/24 09:58 Home Medications Medication Instructions Recorded Confirmed Type Dextrose 50% 12.5 g IV DIRECTED PRN 12/10/24 12/10/24 History Hypoglycemia Dextrose 50% 25 g IV DIRECTED PRN 12/10/24 12/10/24 History Hypoglycemia Fleet Enema 133 ml OR DAILY PRN Constipation 12/10/24 12/10/24 History acetaminophen 325 mg tablet 650 mg PO Q4H PRN Pain 12/10/24 12/10/24 History acetaminophen 500 mg tablet 500 mg PO Q4H PRN Fever 12/10/24 12/10/24 History amlodipine 10 mg tablet 2.5 mg PO DAILY 12/10/24 12/10/24 History atorvastatin 40 mg tablet 40 mg PO DAILY 12/10/24 12/10/24 History baclofen 10 mg tablet 10 mg PO DAILY 12/10/24 12/10/24 History bisacodyl 10 mg rectal suppository 10 mg OR DAILY PRN Constipation 12/10/24 12/10/24 History calcium carbonate 500 mg PO Q8H PRN Indigestion 12/10/24 12/10/24 History docusate sodium 100 mg capsule 100 mg PO BID PRN Constipation 12/10/24 12/10/24 History glucagon 1 mg solution for 1 mg IM DIRECTED PRN 12/10/24 12/10/24 History injection Hypoglycemia lisinopril 5 mg tablet 5 mg PO DAILY 12/10/24 12/10/24 History ondansetron HCl 4 mg tablet 4 mg PO Q6H PRN n/v 12/10/24 12/10/24 History polyethylene glycol 3350 17 17 g PO .LUNCH PRN Constipation 12/10/24 12/10/24 History gram/dose oral powder (Miralax) sennosides 8.6 mg-docusate sodium 1 tab-cap PO .LUNCH PRN 12/10/24 12/10/24 History 50 mg tablet (Senokot-S) Constipation tamsulosin 0.4 mg capsule 0.4 mg PO DAILY 12/10/24 12/10/24 History venlafaxine 75 mg capsule,extended 75 mg PO DAILY 12/10/24 12/10/24 History release 24 hr warfarin 5 mg tablet 5 mg PO UD 12/10/24 12/10/24 History Past Med/Surg History Problem List (Updated 12/10/24 @ 10:29 by Jarad Pablo PA-C) H/O ischemic left MCA stroke Abdominal hematoma (Acute) Medical History (Updated 12/10/24 @ 10:29 by Jarad Pablo PA-C) CVA (cerebral vascular accident) Surgical History (Updated 12/10/24 @ 07:31 by Carson Sánchez MD) Mechanical heart valve present Social History Smoking Status: Never smoker Feels Safe at Home: Yes Review of Systems Review of Systems: See HPI above Physical Exam Physical Exam: General: no acute distress; pleasant affect; non-toxic appearing; well- nourished; cooperative; SpO2 94% on oxy mask 2L HEENT: normocephalic, atraumatic; no scleral icterus; PERRLA w/ EOMs intact; vision and hearing grossly intact Neck: supple; no lymphadenopathy; trachea midline Skin: warm, dry without signs of tenting; no cyanosis; no rashes, bruising, lesions, or erythema noted CV: chest wall NTP; RRR; S1/S2 normal; subtle systolic murmur; mechanical valve present; pulses intact and symmetric at radial, DP, and PT Lungs: no acute respiratory distress; symmetrical chest wall expansion; clear breath sounds across all lung van w/o adventitious sounds; no wheezing ABD: Soft, NTP; patient does endorse TTP on the right upper quadrant and right lower quadrant; purple/superficial bruising noted on the right lower quadrant; BS present; no rebound/guarding; distention secondary to body habitus MSK: no tics or fasciculations; no edema noted in the LEs b/l, nonerythematous; 2/5 right roller pneumatic strength; 5/5 left roller pneumatic strength; 3/5 RLE strength when compared to the left 5/5 Neuro: Not alert and oriented to , location, month, purpose in the hospital; expressive aphasia; no facial droop or slurred speech appreciated; patient does report sensation is intact and symmetric in the upper and lower extremities bilaterally Results & Data Results & Data Vital Signs (Past 12 Hours) Vital Signs Temp Pulse Pulse Resp BP BP Pulse Ox 12/10/24 09:21 90 26 H 94 12/10/24 09:12 89 20 133/95 98 12/10/24 09:06 92 H 25 H 97 12/10/24 09:00 133/95 12/10/24 09:00 133/95 12/10/24 08:57 90 28 H 97 12/10/24 08:51 95 H 25 H 98 12/10/24 08:42 94 H 28 H 97 12/10/24 08:32 93 H 20 150/100 H 97 12/10/24 08:31 150/100 H 12/10/24 08:31 150/100 H 12/10/24 08:30 103 H 23 100 12/10/24 08:21 92 H 27 H 96 12/10/24 08:00 142/95 H 12/10/24 08:00 97 H 29 H 98 12/10/24 07:57 99 H 25 H 87 L 12/10/24 07:47 96 H 20 141/94 H 94 12/10/24 07:38 141/94 H 12/10/24 07:38 141/94 H 12/10/24 07:12 96 H 18 98 12/10/24 07:08 133/92 12/10/24 07:08 133/92 12/10/24 07:08 93 H 20 133/92 99 12/10/24 06:42 95 H 27 H 99 12/10/24 06:30 82 24 94 12/10/24 06:15 82 14 99 12/10/24 06:15 82 17 144/111 H 94 12/10/24 06:15 36.6 C 92 H 30 H 144/111 H 100 12/10/24 06:00 79 30 H 90 12/10/24 05:46 92 H 12/10/24 05:43 144/111 H 12/10/24 05:43 144/111 H O2 Del Method O2 Flow Rate 12/10/24 09:21 12/10/24 09:12 Oxymask 2 12/10/24 09:06 12/10/24 09:00 12/10/24 09:00 12/10/24 08:57 12/10/24 08:51 12/10/24 08:42 12/10/24 08:32 Oxymask 2 12/10/24 08:31 12/10/24 08:31 12/10/24 08:30 12/10/24 08:21 12/10/24 08:00 12/10/24 08:00 12/10/24 07:57 12/10/24 07:47 Oxymask 2 12/10/24 07:38 12/10/24 07:38 12/10/24 07:12 12/10/24 07:08 12/10/24 07:08 12/10/24 07:08 Oxymask 5 12/10/24 06:42 12/10/24 06:30 12/10/24 06:15 Room Air 12/10/24 06:15 Room Air 12/10/24 06:15 Oxymask 4 12/10/24 06:00 12/10/24 05:46 12/10/24 05:43 12/10/24 05:43 Laboratory Results Abnormal lab results 12/10/24 12/10/24 Range/Units 06:10 08:55 RBC 3.93 L (4.70-6.10) M/uL Hgb 11.4 L (14.0-18.0) g/dl Hct 34.6 L (42.0-52.0) % RDW Std Deviation 47.8 H (36.4-46.3) fL RDW Coeff of Starla 14.6 H (11.5-14.5) % Neut # (Auto) 7.54 H (1.40-6.50) K/uL [place] # (Auto) 0.84 H (0.11-0.59) K/uL PT 36.3 H (9.0-12.0) Seconds INR 3.8 H (0.9-1.1) APTT 55 H (21-31) Seconds Glucose 131 H (70-99(Fasting)) mg/dl Magnesium 1.6 L (1.7-2.4) mg/dl Total Bilirubin 1.3 H (0.2-1.0) mg/dl Urine pH 8.0 H (4.5-7.5) Ur Specific [place] 1.032 H (1.000-1.030) Urine Protein 1+ H (Negative) Urine Blood 1+ H (Negative) Diagnostic Findings Abdomen/Pelvis CT 12/10/24 06:[address] WITH IV CONTRAST CT DOSE: 1507.39 mGy.cm HISTORY: abd pain TECHNIQUE: Multiaxial CT images of the abdomen and pelvis were performed following the IV administration of 90 cc of Optiray, A dose lowering technique was utilized adhering to the principles of ALARA. COMPARISON STUDY: None. FINDINGS: There is mild elevation of the left hemidiaphragm with mild atelectasis in the lung bases. ABDOMEN: There is spray and motion artifact. There are a few small cysts at the liver. Otherwise the liver, gallbladder, pancreas, and adrenal glands are unremarkable. There is a small peripheral wedge-shaped hypodensity at the spleen which has morphology consistent with small old infarction or sequela of prior injury. There is moderate cortical scarring at both kidneys. There is a likely small cyst of the left kidney. There is no hydronephrosis or renal calculi. There are scattered atherosclerotic calcifications. No abdominal aortic aneurysm. Pelvis: There is a 13 cm AP by 5 cm transverse by 7 cm craniocaudad oval lobulated mixed density finding in the right lower pelvis adjacent to the urinary bladder which has morphology suggestive of hematoma. There is mild adjacent wall thickening at the right lateral aspect of the urinary bladder. Prostate is mildly enlarged. Urinary bladder is mildly distended. There is moderate retained stool. No bowel inflammation or obstruction seen. Other than the right pelvic finding, no free fluid, free air, or abscess seen. No enlarged adenopathy. Osseous structures: There is mild lumbar degenerative disc disease. There are mild degenerative changes at the hips. No acute fractures seen in the visualized osseous structures. IMPRESSION: 1. Finding at the right pelvis has morphology suggesting subacute hematoma. Follow-up to resolution recommended to rule out underlying mass. 2. There is adjacent wall thickening at the right lateral aspect of the urinary bladder which could represent reactive inflammation. Follow-up to resolution recommended. 3. No other acute findings seen. Otherwise as described. ACT 112: Positive. There are findings on this exam that require communication between the performing entity and the patient following Patient Test Result Information Act ([place] Act 112) guidelines. The above report was generated using voice recognition software. It may contain grammatical, syntax or spelling errors. Electronically signed by: Travis Lowe M.D. 12/10/2024 8:29 AM ECG Additional Comments: ECG ordered, pending Code Status & VTE Plan Code Status Full code (patient does not exhibit medical capacity on admission; CODE STATUS provided by paperwork from [facility], and reconfirmed over the phone with [facility] nursing staff) VTE Prophylaxis Plan VTE Prophylaxis will be ordered: Yes Supervising Physician Co-Signing Physician Notes Patient seen and examined, chart reviewed, case discussed with Jarad Pablo PA-C and I agree with the assessment and plan as above except as otherwise noted Labs and images reviewed 54-year-old male with a past medical history of left MCA stroke, mechanical aortic valve replacement, anxiety, hypertension [facility] who was transferred from [facility] after he presented for a fall from the couch 11/22/2024 striking the left side of his head and subsequently experiencing aphasia and confusion. On evaluation was found to have subocclusive thrombus at the distal M1 segment, abrupt cut off at left P1 segment and contrast opacification of MCA delayed but preserved. Lactate was elevated suspicious for seizure. He underwent thrombectomy of left M1 occlusion. There was some concern for arterial injury during stroke thrombectomy however there was no subsequent injury on aortogram. Vascular surgery was consulted, patient was found to have a hematoma near bladder. Stable. He was discharged to rehab and resumed his anticoagulation for mechanical AVR Seen at bedside. Awakens easily. +RLQ bruising. MInimally tender RUQ/RLQ, no rebound/guarding. R shoulder flexion intact, limited roller pneumatic and elbow flexion/extension. L roller pneumatic/elbow flexion/ext, shoulder flexion intact. Vision and hearing grossly intact. Oriented to name and hospital at time of assessment. Nontoxic appearing. Some expressive aphasia appreciated. Right abdominal pain, history of abdominal hematoma CTA/P 13 cm AP by 5 cm transverse by 7 cm craniocaudad oval lobulated mixed density finding in the right lower pelvis adjacent to the urinary bladder which has morphology suggestive of hematoma - Pt also w/ noted hematoma on CTA/P on 11/24 following a fall. Hemodynamically stable, vitals are normal Supratherapeutic INR Low suspicion for active bleeding. Hemoglobin 11.3. No indication for transfusion at this time. Trended. INR supratherapeutic, 1 dose of warfarin held and INR trended. Will follow for stability, if hemoglobin is stable and patient remains well anticipate return to rehab 12/11 No evidence of bowel obstruction on admitting CT Chest discomfort Mild chest discomfort reproducible on palpation. EKG normal sinus rhythm. Troponin minimally elevated at 38.2, stable at 39 on recheck. Low suspicion for ACS. No chest pain at time of attending exam Agree w/ above PG Care Time/CCT Total # of Minutes Spent Total Time Spent with Patient: Total time spent is greater than 50% in coordination of care (as documented) at patient's floor/unit and/or counseling patient: [place] [address] INT INP/OBS CARE 3/75MIN Patient Type New History Comprehensive Exam Comprehensive Medical Decision Making High Complexity Diagnoses Abdominal hematoma S30.1XXA H/O ischemic left MCA stroke Z86.73
--- NOTE | 2024-12-10 09:46 | Surgery Consultation ---
Date of Consultation December 10, 2024 Assessment & Plan (1) Abdominal hematoma: I have reviewed his CT imaging. There is a complex contained density adjacent to the upper bladder suspected to be a hematoma. No significant free hemoperitoneum. Pt is HD stable with an elevated INR. Admit to the medical service for observation and supportive care with IVF. Hold Coumadin and follow H/H. If H/H still decreasing will need to reverse INR and f/u CTA A/P May have a diet as long as he remains HD stable. Surgery will continue to follow History of Present Illness Reason for Consultation: Pelvic Hematoma History of Present Illness 54M presented to the ED with abdominal pain. CT reveals findings for pelvic hematoma adjacent to the bladder. Pt has PMHX of stroke that has left him with right side weakness and communication issues so he is a poor historian and is on Coumadin currently with an INR of 3.8. In the ED he is HD stable and afebrile. His H/H reveals anemia 11.4/34.6. He denies N/V, chest pains or SOB. Allergies Allergy/AdvReac Type Severity Reaction Status Date / Time bee venom protein (honey bee) Allergy Unknown Verified 12/10/24 09:58 Cephalosporins Allergy Unknown Verified 12/10/24 09:58 penicillin G Allergy Unknown Verified 12/10/24 09:58 Home Medications Medication Instructions Recorded Confirmed Type amlodipine 10 mg tablet 10 mg PO DAILY 12/10/24 12/10/24 History apixaban 5 mg tablet (Eliquis) 5 mg PO BID 12/10/24 12/10/24 History atorvastatin 40 mg tablet 40 mg PO DAILY 12/10/24 12/10/24 History baclofen 10 mg tablet 10 mg PO DIRECTED 12/10/24 12/10/24 History benazepril 20 mg tablet 20 mg PO DAILY 12/10/24 12/10/24 History enoxaparin 120 mg/0.8 mL 120 mg subcut UD 12/10/24 12/10/24 History subcutaneous syringe metoprolol succinate 50 mg 50 mg PO BID 12/10/24 12/10/24 History tablet,extended release 24 hr simvastatin 20 mg tablet 20 mg PO DAILY 12/10/24 12/10/24 History tamsulosin 0.4 mg capsule 0.4 mg PO DAILY 12/10/24 12/10/24 History venlafaxine 75 mg capsule,extended 75 mg PO DAILY 12/10/24 12/10/24 History release 24 hr warfarin 5 mg tablet 5 mg PO DIRECTED 12/10/24 12/10/24 History Patient History Medical History (Updated 12/10/24 @ 09:22 by Carson Sánchez MD) CVA (cerebral vascular accident) Surgical History (Updated 12/10/24 @ 07:31 by Carson Sánchez MD) Mechanical heart valve present Social History Smoking Status: Never smoker Feels Safe at Home: Yes Review of Systems Review of Systems: Pt denies any other associated symptoms. Physical Exam Constitutional: no acute distress, not ill appearing, not frail appearing, not diaphoretic and not lethargic Respiratory: normal respiratory effort; no respiratory distress, no labored breathing and does not use accessory muscles Cardiovascular: Rate/Rhythm: regular rate; not tachycardic Extremities: no calf tenderness and no edema Gastrointestinal (Abdomen): Inspection/Auscultation: abdomen not distended (abdomen is obese) Percussion/Palpation: + abdomen tender (lower midline to suprapubic TTP) and abdomen soft; no guarding and abdomen not rigid Neurologic: moves all extremities (significantly decrease movement of RUE), + focal motor deficit and awake Speech / Cognition: + expressive aphasia Results & Data Vital Signs (Past 12 Hours) Vital Signs Temp Pulse Pulse Resp BP BP Pulse Ox 12/10/24 09:21 90 26 H 94 12/10/24 09:12 89 20 133/95 98 12/10/24 09:06 92 H 25 H 97 12/10/24 09:00 133/95 12/10/24 09:00 133/95 12/10/24 08:57 90 28 H 97 12/10/24 08:51 95 H 25 H 98 12/10/24 08:42 94 H 28 H 97 12/10/24 08:32 93 H 20 150/100 H 97 12/10/24 08:31 150/100 H 12/10/24 08:31 150/100 H 12/10/24 08:30 103 H 23 100 12/10/24 08:21 92 H 27 H 96 12/10/24 08:00 142/95 H 12/10/24 08:00 97 H 29 H 98 12/10/24 07:57 99 H 25 H 87 L 12/10/24 07:47 96 H 20 141/94 H 94 12/10/24 07:38 141/94 H 12/10/24 07:38 141/94 H 12/10/24 07:12 96 H 18 98 12/10/24 07:08 133/92 12/10/24 07:08 133/92 12/10/24 07:08 93 H 20 133/92 99 12/10/24 06:42 95 H 27 H 99 12/10/24 06:30 82 24 94 12/10/24 06:15 82 14 99 12/10/24 06:15 82 17 144/111 H 94 12/10/24 06:15 36.6 C 92 H 30 H 144/111 H 100 12/10/24 06:00 79 30 H 90 12/10/24 05:46 92 H 12/10/24 05:43 144/111 H 12/10/24 05:43 144/111 H O2 Del Method O2 Flow Rate 12/10/24 09:21 12/10/24 09:12 Oxymask 2 12/10/24 09:06 12/10/24 09:00 12/10/24 09:00 12/10/24 08:57 12/10/24 08:51 12/10/24 08:42 12/10/24 08:32 Oxymask 2 12/10/24 08:31 12/10/24 08:31 12/10/24 08:30 12/10/24 08:21 12/10/24 08:00 12/10/24 08:00 12/10/24 07:57 12/10/24 07:47 Oxymask 2 12/10/24 07:38 12/10/24 07:38 12/10/24 07:12 12/10/24 07:08 12/10/24 07:08 12/10/24 07:08 Oxymask 5 12/10/24 06:42 12/10/24 06:30 12/10/24 06:15 Room Air 12/10/24 06:15 Room Air 12/10/24 06:15 Oxymask 4 12/10/24 06:00 12/10/24 05:46 12/10/24 05:43 12/10/24 05:43 Diagnostic Findings TECHNIQUE: Multiaxial CT images of the abdomen and pelvis were performed following the IV administration of 90 cc of Optiray, A dose lowering technique was utilized adhering to the principles of ALARA. COMPARISON STUDY: None. FINDINGS: There is mild elevation of the left hemidiaphragm with mild atelectasis in the lung bases. ABDOMEN: There is spray and motion artifact. There are a few small cysts at the liver. Otherwise the liver, gallbladder, pancreas, and adrenal glands are unremarkable. There is a small peripheral wedge-shaped hypodensity at the spleen which has morphology consistent with small old infarction or sequela of prior injury. There is moderate cortical scarring at both kidneys. There is a likely small cyst of the left kidney. There is no hydronephrosis or renal calculi. There are scattered atherosclerotic calcifications. No abdominal aortic aneurysm. Pelvis: There is a 13 cm AP by 5 cm transverse by 7 cm craniocaudad oval lobulated mixed density finding in the right lower pelvis adjacent to the urinary bladder which has morphology suggestive of hematoma. There is mild adjacent wall thickening at the right lateral aspect of the urinary bladder. Prostate is mildly enlarged. Urinary bladder is mildly distended. There is moderate retained stool. No bowel inflammation or obstruction seen. Other than the right pelvic finding, no free fluid, free air, or abscess seen. No enlarged adenopathy. Osseous structures: There is mild lumbar degenerative disc disease. There are mild degenerative changes at the hips. No acute fractures seen in the visualized osseous structures. IMPRESSION: 1. Finding at the right pelvis has morphology suggesting subacute hematoma. Follow-up to resolution recommended to rule out underlying mass. 2. There is adjacent wall thickening at the right lateral aspect of the urinary bladder which could represent reactive inflammation. Follow-up to resolution recommended. 3. No other acute findings seen. Otherwise as described. Results Complete Blood Count Results: RBC 3.93 M/uL (4.70-6.10) L 12/10/24 WBC 9.84 K/ul (4.8-10.8) 12/10/24 Hgb 11.4 g/dl (14.0-18.0) L 12/10/24 Hct 34.6 % (42.0-52.0) L 12/10/24 Plt Count 389 K/uL (130-400) 12/10/24 PG Care Time/CCT Total # of Minutes Spent Total Time Spent with Patient: Total time spent is greater than 50% in coordination of care (as documented) at patient's floor/unit and/or counseling patient: Coding Level of Care Code 22992 IN/OBS CONSULT LVL 3,45M Diagnoses Abdominal hematoma S30.1XXA
[2024-12-10] MEDS: MAGNESIUM SULFATE / D5W 1 GM/100 ML BAG IV ONE (11:15)
[2024-12-10 11:17] LABS: Hematocrit (blood only) 33.6 % (42.0-52.0); Hemoglobin 11.3 g/dl (14.0-18.0)
[2024-12-10] MEDS: ALUMINUM/MAGNESIUM SUSP 30 ML UDC PO STA (13:37)
[2024-12-10] MEDS: FAMOTIDINE 20MG IV PUSH 20 MG/5 ML SYR IV STA (13:38)
[2024-12-10] MEDS ORDERED: ONDANSETRON INJ 2 MG/ML 2 ML VIAL IV PRN (13:51)
[2024-12-10] MEDS ORDERED: bisacodyL 10 MG SUPP PR PRN (13:51)
[2024-12-10] MEDS ORDERED: ACETAMINOPHEN 325 MG TAB PO PRN (13:51)
--- OUTSIDE RECORDS SUMMARY | 2024-12-10 14:01 | External Medical Summary ---
Author Name Unknown Address Unknown Organization K09:[facility] [place] [address] Laboratory Report Ordering Provider Test Date Status PETRA ESPINAL 12/09/2024 05:30:48 Final Warfarin Therapy
INR: 2 .0-3.0 conventional anticoagulation
INR: 2.5- 3.5 high intensity anticoagulation Observation Date Value Abnormality Reference (Units ) Status PT 12/09/2024 05:30:48 32.5 Above high normal 11 .6-15.2 (seconds) Final INR 12/09/2024 05:30:48 3.1 Above high normal 0. 8-1.2 Final Performing Location [facility] [place] [address]
--- OUTSIDE RECORDS SUMMARY | 2024-12-10 14:01 | External Medical Summary | Summary of Care ---
Author Name Unknown Organization [facility] Address [address] [address] Phone [phone] Care Team Providers Care Die Designer Name Role Phone Tai Bal PA-C Primary Care Provide r Reason for Visit * Reason Comments Dosage Adjustment Via Phone (anticoag Cl inic) Encounter Details Date Type Department Care Team (Latest Contact Info) Description 12/08/2024 5:10 PM EDT Anticoagulation Pharmacy [address] [phone] Pharmacist2, [facility] [address] [address] Anticoagulation management encounter*; Cerebrovascular accident (CVA) due to embolism of middle cerebral artery, unspecified blood vessel laterality (HCC) Allergies Active Allergy Reactions Criticality Noted Date Comments Bee Venom 01/21/2022 Cephalosporins 01/16/2004 hives Penicillin G 2019 documented as of this encounter (statuses as of 12/09/2024) Medications Benazepril HCl 20 MG Oral Tablet (Lotensin) Active Melatonin 5 MG Oral TabletIndicatio ns:Obstructive sleep apnea of adult,Class 2 severe obesity due to excess calories with serious comorbidity and body mass index (BMI) of 39.0 to 39.9 in adult (HCC),HTN, goal below 130/80,History of stroke,Sleep phase syndrome, delayed Take 1 tablet (5 mg) one hour before bedtime (~11 pm) nightly. 30 Tablet 1 06/23/20 22 Active Venlafaxine HCl ER 75 MG Oral Capsule Extended Release 24 Hour (Effexor XR) Take 1 Capsule by mouth in the morning. 11/16/19 25 Active Atorvastatin Calcium 40 MG Oral Tablet (Lipitor) Take 1 Tablet by mouth every afternoon. 30 Tablet 3 5 5:53 PM EDT 12/03/19 25 Active Enoxaparin Sodium 120 MG/0.8ML Injection Solution Prefilled Syringe (Lovenox) Inject 1 syringe (120 mg) under the skin in the morning and 1 syringe (120 mg) before bedtime. Use as bridge for warfarin until INR is within goal (2.5-3.5). 11.2 mL 5 5:53 PM EDT 12/03/19 25 Active Baclofen 10 MG Oral Tablet (Lioresal) Take 1 Tablet by mouth at bedtime. 30 Tablet 3 5 5:53 PM EDT 12/03/19 25 Active Warfarin Sodium 5 MG Oral Tablet (Coumadin) To be taken as directed by anticoagulation Clinic 30 Tablet 3 5 5:53 PM EDT 12/03/19 25 Active amLODIPine Besylate 10 MG Oral Tablet (Norvasc) Take 0.5 Tablets by mouth in the morning. 30 Tablet 3 12/03/19 25 Active Tamsulosin HCl 0.4 MG Oral Capsule (Flomax) Take 1 Capsule by mouth at bedtime. 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 Other hyperlipidemia 06/10/2018 Right hemiparesis 06/10/2018 documented as of this encounter (statuses as of 12/09/2024) Resolved Problems Problem Noted Date Diagnosed Date Resolved Date Respiratory failure without hypercapnia 11/26/2024 11/26/2024 Pseudoaneurysm following procedure 11/24/2024 12/01/2024 documented as of this encounter (statuses as of 12/09/2024) Social History Tobacco Use Types Packs/Day Years Used Date Smoking Tobacco: Former Smokeless Tobacco: Never Comments:1.5 ppk/day, quit M arch 12 Alcohol Use Standard Drinks/Week Comments No 0 (1 standard drink = 0.6 oz pur e alcohol) Sex and Gender Information Value Date Recorded Sex Assigned at Not on file Legal Sex Male 5:56 AM EST Gender Identity Not on file Sexual Orientation Not on file documented as of this encounter Progress Notes * Carley Yan RPh - 12/08/2024 4:09 PM EDT Called and spoke with nursing staff at [facility]. Patient remains admitted. Estimated discharge date 12/15/24. Will schedule phone call to check discharge status in 1 week. Rayna CastroD, BCPS Clinical Pharmacist - Ice Rink Attendant Medication Therapy Management Clinic 12/08/24 4:10 PM documented in this encounter Plan of Treatment Upcoming Encounters Date Type Department Care Team (Late st Contact Info) Description 12/09/2024 5:40 AM EDT Laboratory Lab Mobile Phlebotomy [address] [address] Arrived 12/15/2024 5:10 PM EDT Anticoagulation Pharmacy [address] [phone] Pharmacist2, [facility] [address] [address] 01/03/2025 1:30 PM EDT Office Visit [facility], [address] [place] [address] Peter Blas MD [address], [place] [phone] 01/03/2025 2:20 PM EDT Telemedicine Neurology [address] [place] [address] Migel Young MD [address] [place] [address] 05/09/2025 1:30 PM EDT Office Visit Cardiothoracic Surg [facility], [place] [address] [place] [address] Lance Pennington MD [address], [place] [phone] Health Maintenance Due Date Last Done Comments Depression Screening 1982 HIV Screening 1985 Albumin/Creatinine Ratio 1988 Hepatitis C Screening 1988 DTap/Tdap Vaccines (1 - Tdap) 1989 Hepatitis B Vaccine (1 of 3 - 19+ 3-dose series) 1989 Colonoscopy 2015 Fecal Occult Blood Test 2015 Sigmoidoscopy 2015 Pneumococcal Vaccine: 50+ Years (2 of 2 - PCV) 08/11/2019 08/11/2018, 06/10/2018 Zoster Vaccines (1 of 2) 2020 COVID-19 Vaccine (1 - season) 2024 Influenza Vaccine (FLU shot) (Season Ended) 2025 07/26/2019, 07/26/2019, 06/10/2018 GFR 12/03/2025 12/03/2024, 04/0 11/2024, 12/01/2024, Additional history exists Cologuard 03/23/2027 03/23/2024, 03/17/2024 Colorectal Cancer Screening 03/23/2027 Diabetes Screening 12/04/2027 12/03/2024, 0 12/02/2024, 12/01/2024, Additional history exists HPV (Gardasil) Vaccine Aged Out No lo nger eligible based on patient's age to complete this topic MENINGOCOCCAL (MENACTRA/MENVEO) Aged Out No longer eligible based on patient's age to complete this topic Meningitis B Vaccine (Bexsero/Trumemba) Aged Out No longer eligible based on patient's age to complete this topic documented as of this encounter Medical Devices Not on filedocumented as of this encounter Visit Diagnoses Diagnosis Anticoagulation management encounter- Primary Encounter for therapeutic drug monitoring Cerebrovascular accident (CVA) due to embolism of middle cerebral artery, unspecified blood vessel laterality (HCC) documented in this encounter Advance Directives * Full Code (Latest Code Status on File) Date Activated Date Inactivated Comments 11/24/2024 1:12 AM 12/02/2024 9:53 PM This order re flects the patients wishes and were consensually agreed upon. Question Answer Comments Discussion of Advance Direct loli occurred with: Not Discussed due to patient's condition Care Teams Die Designer Relationship Specialty Start Date End Date Tai Bal PA-C [address] [facility] [address] [id number] PCP - General Physician Furnace Erector 11/29/24 documented as of this encounter
--- OUTSIDE RECORDS SUMMARY | 2024-12-10 14:01 | External Medical Summary ---
Author Name Unknown Address Unknown Organization K09[facility] [place] [address] Laboratory Report Ordering Provider Test Date Status PETRA ESPINAL 12/08/2024 05:50:01 Final Warfarin Therapy
INR: 2 .0-3.0 conventional anticoagulation
INR: 2.5- 3.5 high intensity anticoagulation Observation Date Value Abnormality Reference (Units ) Status PT 12/08/2024 05:50:01 28.0 Above high normal 11 .6-15.2 (seconds) Final INR 12/08/2024 05:50:01 2.6 Above high normal 0. 8-1.2 Final Performing Location [facility] [place] [address]
--- OUTSIDE RECORDS SUMMARY | 2024-12-10 14:02 | External Medical Summary ---
Author Name Unknown Address Unknown Organization [facility] [address] [place] [address] Laboratory Report Ordering Provider Test Date Status PETRA ESPINAL 12/04/2024 05:35:52 Final Warfarin Therapy
INR: 2 .0-3.0 conventional anticoagulation
INR: 2.5- 3.5 high intensity anticoagulation Observation Date Value Abnormality Reference (Units ) Status PT 12/04/2024 05:35:52 24.8 Above high normal 11 .6-15.2 (seconds) Final INR 12/04/2024 05:35:52 2.2 Above high normal 0. 8-1.2 Final Performing Location [facility] [address] [place] [address]
--- OUTSIDE RECORDS SUMMARY | 2024-12-10 14:02 | External Medical Summary ---
Author Name Unknown Address Unknown Organization K09[facility] [place] [address] Laboratory Report Ordering Provider Test Date Status PETRA ESPINAL 12/05/2024 05:26:58 Final Warfarin Therapy
INR: 2 .0-3.0 conventional anticoagulation
INR: 2.5- 3.5 high intensity anticoagulation Observation Date Value Abnormality Reference (Units ) Status PT 12/05/2024 05:26:58 26.9 Above high normal 11 .6-15.2 (seconds) Final INR 12/05/2024 05:26:58 2.5 Above high normal 0. 8-1.2 Final Performing Location [facility] [place] [address]
--- OUTSIDE RECORDS SUMMARY | 2024-12-10 14:02 | External Medical Summary ---
Author Name Unknown Address Unknown Organization K09:[facility] [place] [address] Laboratory Report Ordering Provider Test Date Status PETRA ESPINAL 12/06/2024 05:28:30 Final Warfarin Therapy
INR: 2 .0-3.0 conventional anticoagulation
INR: 2.5- 3.5 high intensity anticoagulation Observation Date Value Abnormality Reference (Units ) Status PT 12/06/2024 05:28:30 28.3 Above high normal 11 .6-15.2 (seconds) Final INR 12/06/2024 05:28:30 2.6 Above high normal 0. 8-1.2 Final Performing Location [facility] [place] [address]
--- OUTSIDE RECORDS SUMMARY | 2024-12-10 14:02 | External Medical Summary ---
Author Name Unknown Address Unknown Organization K09:[facility] [place] [address] Laboratory Report Ordering Provider Test Date Status PETRA ESPINAL 12/07/2024 05:50:35 Final Warfarin Therapy
INR: 2 .0-3.0 conventional anticoagulation
INR: 2.5- 3.5 high intensity anticoagulation Observation Date Value Abnormality Reference (Units ) Status PT 12/07/2024 05:50:35 25.8 Above high normal 11 .6-15.2 (seconds) Final INR 12/07/2024 05:50:35 2.3 Above high normal 0. 8-1.2 Final Performing Location [facility] [place] [address]
--- OUTSIDE RECORDS SUMMARY | 2024-12-10 14:03 | External Medical Summary | Summary of Care ---
Author Name Unknown Organization [facility] Address [address] [place] [address] Phone [phone] Care Team Providers Care Stud Sheep Farmer Name Role Phone Tai Bal PA-C Primary Care Provide r Reason for Referral * Precert (Within 10 days (routine)) - Pending Review Specialty Diagnoses / Procedures Referred By Ursula haines Referred To Contact Radiology Diagnoses S/P AVR (aortic valve replacement) Aneurysm of ascending aorta without rupture (HCC) Procedures CTA CHEST NON-CORONARY W CONTRAST Amanda Block CRNP [address] [place] [address] Phone: tel: fax: Referral ID Status Reason Start Date Expiration Date V isits Requested Visits Authorized [id number] Pending Review 06/03/2025 999 [id number] * Evaluate & Treat - Unlimited Visits (Within 3 days (urgent)) - Authorized Specialty Diagnoses / Procedures Referred By Contac t Referred To Contact ANTI-COAG CLINIC / Pharmacy Diagnoses Acute ischemic left MCA stroke (HCC) Collette Jimenez MD Phone: tel: fax: Referral ID Status Reason Start Date Expiration Date Visits Requested Visits Authorized [id number] Authorized Specialty Services Required 12/02/2024 05/31/2025 99 99 Question Answer Referral Priority Within 3 days (urgent) Where should this appointment be scheduled? [facility] Comments Anticoagulation referral for management of: Warfarin Indication and INR goal for Warfarin Management: Stroke Prevention: Prosthetic valve 2.5 - 3.5 Relevant History: Severe prosthetic aortic valve stenosis Enoxaparin bridging required? Yes Minimum frequency patient should be seen in person for medication management: as appropriate per clinical condition and patient status By my signature, I understand that my patient Tariq Sawant will have his medication therapy managed by the [facility] ([facility]) per established policies, procedures, and protocols. I also certify that this referral may serve as an initiation of service for the management of drug therapy in the above noted patient. [facility] providers will be responsible for scheduling patient visits, obtaining appropriate laboratory studies, and adjusting medication management therapy per patient's need, in addition to those roles spelled out in the clinic policy, procedures, and drug management protocols. I understand that the service provided by the [facility] Clinic is voluntary and have informed patient that they can refuse the service at their discretion. I am aware that the [facility] Clinic will provide me with a copy of the patient encounter via my [employer]. I authorize the [facility] Clinic to carry out these activities on my behalf. I consider this program to be a necessary part of the patient's medical care. Collette Jimenez MD Discharge Order Reason for Visit * Auth/Cert Specialty Diagnoses / Procedures Referred By Contac t Referred To Contact Diagnoses new aphasia, s/p fall 11/22/24 Diomedes Rico MD [address] [place] [address] Phone: tel: fax: [place], [facility] [address] [place] [address] Referral ID Status Reason Start Date Expiration Date Visits Re quested Visits Authorized [id number] Encounter Details Date Type Department Care Team (Latest Contact Info) Description 11/23/2024 10:02 PM EDT - 12/02/2024 5:48 PM EDT Hospital Encounter [id number] [address] FLOOR [address] [place] [address] Diomedes Rico MD [address], [place] [id number] Osorio Gilmore MD [address] [place] [address] Luis Alfredo Hutchins, DO [address] [place] [address] Nolan Price, DO [address] [place] [address] Yunier Goodman MD [address] [place] [id number] Rika Livingston MD [address] [place] [address] [id number] Various: KRAVS,CDIQDC,EKG Discharge Disposition: IP Rehab Allergies Active Allergy Reactions Criticality Noted Date Comments Bee Venom 01/21/2022 Cephalosporins 01/16/2004 hives Penicillin G 2019 documented as of this encounter (statuses as of 12/03/2024) Medications Benazepril HCl 20 MG Oral Tablet (Lotensin) Active Melatonin 5 MG Oral TabletIndicati ons:Obstructiv e sleep apnea of adult,Class 2 severe obesity due to excess calories with serious comorbidity and body mass index (BMI) of 39.0 to 39.9 in adult (HCC),HTN, goal below 130/80,History of stroke,Sleep phase syndrome, delayed Take 1 tablet (5 mg) one hour before bedtime (~11 pm) nightly. 30 Tablet 1 022 Active Venlafaxine HCl ER 75 MG Oral Capsule Extended Release 24 Hour (Effexor XR) Take 1 Capsule by mouth in the morning. 025 Active Atorvastatin Calcium 40 MG Oral Tablet (Lipitor) Take 1 Tablet by mouth every afternoon. 30 Tablet 3 12/03/19 25 5:53 PM EDT 04/04/2 025 Active Enoxaparin Sodium 120 MG/0.8ML Injection Solution Prefilled Syringe (Lovenox) Inject 1 syringe (120 mg) under the skin in the morning and 1 syringe (120 mg) before bedtime. Use as bridge for warfarin until INR is within goal (2.5-3.5). 11.2 mL 12/03/19 25 5:53 PM EDT 025 Active Baclofen 10 MG Oral Tablet (Lioresal) Take 1 Tablet by mouth at bedtime. 30 Tablet 3 12/03/19 25 5:53 PM EDT 025 Active Warfarin Sodium 5 MG Oral Tablet (Coumadin) To be taken as directed by anticoagulation Clinic 30 Tablet 3 12/03/19 25 5:53 PM EDT 025 Active amLODIPine Besylate 10 MG Oral Tablet (Norvasc) Take 0.5 Tablets by mouth in the morning. 30 Tablet 3 025 Active Tamsulosin HCl 0.4 MG Oral Capsule (Flomax) Take 1 Capsule by mouth at bedtime. 30 Capsule 3 12/03/19 25 5:53 PM EDT 025 Active EFFEXOR XR 37.5 MG OR CP24 1 tablet BID 30 5 004 2024 Discontinued(M edication List Clean Up) TOPROL XL 50 MG OR TB24 1 TABLET DAILY 30 0 004 2024 Discontinued(M edication List Clean Up) amLODIPine Besylate 10 MG Oral Tablet (Norvasc) 2024 Discontinued Eliquis 5 MG Oral Tablet 022 2024 Discontinued hydrOXYzine HCl 25 MG Oral Tablet Take by mouth . 022 2024 Discontinued(M edication List Clean Up) Simvastatin 20 MG Oral Tablet (Zocor) 022 2024 Discontinued Metoprolol Succinate ER 50 MG Oral Tablet Extended Release 24 Hour (toPROL XL) Take 1 Tablet by mouth in the morning. 2024 Discontinued documented as of this encounter (statuses as of 12/03/2024) Active Problems Problem Noted Date Diagnosed Date [...] as of this encounter (statuses as of 12/03/2024) Resolved Problems Problem Noted Date Diagnosed Date Resolved Date Respiratory failure without hypercapnia 11/26/2024 11/26/2024 Pseudoaneurysm following procedure 11/24/2024 12/01/2024 documented as of this encounter (statuses as of 12/03/2024) Social History Tobacco Use Types Packs/Day Years [...] on file documented as of this encounter Last Filed Vital Signs Vital Sign Reading Time Taken Comments Blood Pressure 118/64 12/02/2024 10:01 AM EDT Pulse 86 12/02/2024 10:01 AM EDT Temperature 37.1 °C (98.8 °F) 12/02/2024 1 0:01 AM EDT Respiratory Rate 17 12/02/2024 10:0 1 AM EDT Oxygen Saturation 96% 12/02/2024 10: 01 AM EDT Inhaled Oxygen Concentration - - Weight 120.1 kg (264 lb 12.8 oz) 12/02/2024 2:19 AM EDT Height 175.3 cm (5' 9.02") 11/24/2024 2:02 PM ED T Body Mass Index 39.09 11/24/2024 2:02 PM EDT documented in this encounter Discharge Instructions * Discharge Instr - AVS* Collette Jimenez MD - 11/29/2024 3:41 PM EDT Discharge Date: 12/02/2024 You may call on-call neuro physician of the department of Neurology at [phone] during businesshours for any questions or test results. For after- hours emergencies call [phone] and have theon call Neurologist paged. If you do not have a Neurology followup appointment scheduled prior to discharge, please call [phone] to schedule the appointment at your earliest convenience. The information below provides you with the instructions and the list of medications you need to betaking following discharge from the hospital. If you have any questions, please ask before leaving.Please carry this letter with you when you see your doctor in the clinic. If you have questions, you can reach us at the numbers above. Brief summary of your inpatient care: Mr. 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 He presented to [facility] ED with aphasia following a fall and head injury. CTA H/N showed a left M1 sub-occlusive thrombus and P1 cut-off. The patient was not a TNK candidate given his LKW. He was an endovascular candidate and was transferred to [facility], where he underwent mechanical thrombectomy with left M1 TICI3 with an initial NIHSS of 20. MRI Brain on 11/26/2024 confirmed an acute left MCA territory stroke, with a moderate-sized infarct in the left temporal lobe and smaller infarcts in the left frontal lobe. Cardioembolic etiology is suspected in the setting of mechanical aortic valve replacement (despite Eliquis therapy), with TTE also showing severe aortic stenosis. Regarding secondary stroke prevention, the patient was started on warfarin therapy on 11/29/2024 with a plan to bridge with heparin, given the etiology is most likely cardioembolic. He was on heparininfusion while inpatient and is being discharged with Lovenox and warfarin per pharmacy and anticoagulation clinic referral at discharge. He underwent transesophageal echocardiogram on 11/30/2024 however the procedure was unsuccessful at providing diagnostic images and subsequently under cardiac CT. Cardiology and Cardiothoracic surgery reviewed and recommended for an outpatient follow up in 2 and 6 weeks respectively. Your primary diagnosis at discharge was acute left MCA territory ischemic stroke Your doctors during this hospitalization included: Dr Livingston Inpatient test results pending: None Operations & Procedures: Thrombectomy of left M1 subocclusive thrombus with TICI 3 revascularization Complications: none significant Advance Directive Documented: Advance Directive Does the Patient have an Advance Directive? No Diet: Stroke Diet (low sodium, low cholesterol, low fat, and low calories) Activity: No restrictions Driving: N/A. Date you may return to work or school: N/A See your primary care physician (Tai Bal PA-C) in 1 week(s). See neuro physician in 6 weeks See tearoom host in 2 weeks See Cardiothoracic surgery in 6 weeks SPECIAL INSTRUCTIONS: Special Instructions: Please make sure he follows with anticoagulation clinic for management of Lovenox and warfarin Please make sure to follow up with Cardiology in 2 weeks Please make sure to follow up with Cardiothoracic surgery in 6 weeks Please make sure to follow up with PM&R in the outpatien SPRING MACHINE OPERATOR amlodipine 10 mg is reduced to 5 mg per cardiology's advice Stopped SPRING MACHINE OPERATOR metoprolol Stroke education was given for the following: Activation of emergency medical system. Follow-up after discharge. Medications prescribed at discharge. Risk factors for stroke. Warning signs and symptoms of stroke. Patient given written Epic Supply handouts: Risk Factors for Stroke Symptoms of a Stroke Discharge Instructions for Stroke Discharge Instructions for Transient Ischemic Attack (TIA) When to Use the Emergency Room (ER) Stroke: Taking Medications Make sure to bring the following items to your neuro follow-up appointment: (use the lines below as a check list when preparing for follow-up appointment) Medication list and medications in their bottles Copy of discharge instructions Any outside records Copies of any outside images Family member or friend A list of any questions you may have Stroke Support Group Information: When: FIRST Thursday of each month Time: 1:00 pm Where: As of November 18, 2020, support group is virtual via [employer] Who: Open to public (any Stroke Survivor, family member, or caregiver) Info: For more information and WebEx Link, please call Yolanda Garvey OT at [phone] IF YOU HAVE ANY OF THE FOLLOWING SYMPTOMS, CALL 911 IMMEDIATELY. BE FAST Balance - Loss of balance, headache or dizziness Eyes - Blurred vision Face - One side of the face is drooping. Arms - Arm or leg weakness Speech - Speech difficulty Time - Time to call for ambulance immediately Other symptoms for activating EMS (911): - Seizure - New or worsening pain (specify where pain is located) - Paralysis or partial paralysis - Trouble breathing - Trouble swallowing - Change in vision * Pharmacy Instr - AVS* Linda Waddell, [facility] - 11/29/2024 2:45 PM EDT Warfarin dosing instructions for after discharge: You will receive a prescription for Warfarin 5 mg tablets. Please take the following doses of warfarin by mouth after Discharge: Date Dose using warfarin 5 mg Tablets 4/4 Take 2 tablets = 10 mg 4/5 Take 2 tablets = 10 mg 4/6 Take 2 tablets = 10 mg 4/7 Take 1.5 tablets = 7.5 mg 4/8 Take 1.5 tablets = 7.5 mg Your dose of ENOXAPARIN is 120 mg subcutaneous injection twice daily. You should use this medication along with warfarin until you are instructed to stop. The anticoagulation clinic pharmacist will provide you with further dosing and appointment instructions. If you have any questions regarding your anticoagulation therapy, please Contact Anticoagulation Clinic at [phone] or . Please share the following information with your provider: You were started on WARFARIN for Valves: Mechanical AVR with risk factors (2.5- 3.5). This is an Existing diagnosis. Your Anticipated Duration of Therapy: Lifetime . Because you have been placed on a blood thinner, your therapy will need to be monitored on a regular basis. You will have your . While you were in the hospital, you medication doses received and your corresponding labs were: INR Date/Time Value Ref Range Status 12/02/2024 05:29 AM 1.2 0.8 - 1.2 Final 12/01/2024 04:57 AM 1.1 0.8 - 1.2 Final 11/30/2024 05:12 AM 0.9 0.8 - 1.2 Final HGB Date/Time Value Ref Range Status 12/02/2024 05:29 AM 10.4 (L) 14.0 - 16.8 g/dL Final HCT Date/Time Value Ref Range Status 12/02/2024 05:29 AM 32.3 (L) 40.0 - 48.4 % Final PLT Date/Time Value Ref Range Status 12/02/2024 05:29 AM 259 140 - 400 K/uL Final Warfarin Administrations (last 720 hours) Date/Time Action Medication Dose 12/01/24 2137 Given Warfarin Sodium (Coumadin) tab 10 mg 10 mg 11/30/24 2156 Given Warfarin Sodium (Coumadin) tab 5 mg 5 mg 11/29/24 2200 Given Warfarin Sodium (Coumadin) tab 5 mg 5 mg documented in this encounter Progress Notes * Linda Waddell RPh - 12/02/2024 2:13 PM EDT PHARMACY MEDICATION TEACHING CONSULT WARFARIN AND ENOXAPARIN [address] [address] Name: Tariq Sawant Location: [facility] Date: 12/02/2024 Time: 2:10 PM Requesting Service: Neurology - Stroke Reason for Warfarin/Enoxaparin Consult: Mechanical valve (please specify location and type) mechanical aortic valve and secondary stroke prevention Patient Active Problem List Diagnosis Embolic stroke (HCC) Left sided cerebral hemisphere cerebrovascular accident (HCC) Essential hypertension S/P AVR (aortic valve replacement) Mitral leaflet abnormality Other hyperlipidemia Right hemiparesis (HCC) Acute ischemic left MCA stroke (HCC) History of ischemic left MCA stroke Expressive aphasia On continuous oral anticoagulation Gait abnormality Impaired mobility and ADLs Prosthetic heart valve clot Family member(s) present: family not present in room, but called patient's friend Danna to also goover medications Patient agreed to allow visitors to attend teaching, if present. WARFARIN TEACHING Warfarin teaching points covered with patient and/or family: Route, Dosage Form and Schedule (Including importance of taking medication as instructed), Medication Intended Use/Action, Precautions to be Observed while using this Medication, Commonly Encountered Adverse Effects (Including risk of bleeding and potential signs and symptoms), Methods for Self-Monitoring, Laboratory Monitoring (Including compliance with INR monitoring), Potential Drug Interactions (Including medications and dietary changes that potentially affect the INR and interactions with bouv-qcn-zihckld medications), Therapeutic Contraindications, Potential Food Interactions (Including information about a consistent intake of vitamin K containing foods and the importance of notifying health care provider if any significant changes in their diet), Designated Handout(s) Provided, Follow-up Monitoring (Including review of plans for post- discharge monitoring and follow-up), Prescription Refill Information, Action for a Missed Dose, and Patient Specific Information Written documentation regarding all of the teaching points was provided to the patient and/or family members present. Patient accepted Coumadin education booklet and/or Clinical Pharmacology warfarinpatient education sheet.. ENOXAPARIN TEACHING Enoxaparin teaching points covered with patient and/or family: Route, Dosage Form and Schedule (Including importance of taking medication as instructed),, Medication Intended Use/Action, Injection technique,, Precautions to be Observed while using this Medication,, Commonly Encountered Adverse Effects (Including risk of bleeding and potential signs and symptoms),, Methods for Self- monitoring,, Laboratory Monitoring (Including compliance with INR monitoring),, Potential Drug Interactions (Including medications that potentially affect bleeding, alcohol and wlqf-asr-ijfepbi medications such as NSAIDs),, Therapeutic Contraindications,, Designated Handout(s) Provided,, Follow-up Monitoring (Inclu ding review of plans for post-discharge monitoring and follow-up),, Prescription Refill Information,, and Action for a Missed Dose, Written documentation regarding all of the teaching points was provided to the patient and/or family members present. Patient accepted patient education handout. Assessment of teaching effectiveness: demonstrated understanding, however patient would benefit from re-education prior to discharge from rehab facility, especially if lovenox is going to be continued post-rehab Patient has expressed potential cost/home health concerns and Care Management has been made aware: No Plan if patient encounters questions later: Contact Anticoagulation Clinic at [phone] or Length of teaching: Intermediate (15 to 30 minutes) Teaching completed according to pharmacy teaching standard 508 * Linda Waddell RPh - 12/02/2024 11:17 AM EDT PHARMACY ANTICOAGULATION WARFARIN (Coumadin) Assessment [address] [address] Name: Tariq Sawant [place] [facility] Date: 12/02/2024 Time: 11:16 AM Tariq Sawant is a 54 year old male admitted for Acute ischemic left MCA stroke (HCC). Pharmacy was consulted for warfarin dosing and monitoring. Anticoagulation Therapy Goals Valves: Mechanical AVR with risk factors (2.5-3.5) Anticipated Duration of Therapy: Lifetime Prior to Admission Management Anticoagulation Regimen: TBD Labs INR Date/Time Value Ref Range Status 12/02/2024 05:29 AM 1.2 0.8 - 1.2 Final 12/01/2024 04:57 AM 1.1 0.8 - 1.2 Final 11/30/2024 05:12 AM 0.9 0.8 - 1.2 Final HGB Date/Time Value Ref Range Status 12/02/2024 05:29 AM 10.4 (L) 14.0 - 16.8 g/dL Final HCT Date/Time Value Ref Range Status 12/02/2024 05:29 AM 32.3 (L) 40.0 - 48.4 % Final PLT Date/Time Value Ref Range Status 12/02/2024 05:29 AM 259 140 - 400 K/uL Final Assessment Dietary Assessment: Normal/expected PO intake Today's INR : Subtherapeutic Does the patient have any medication interactions: Yes Please comment: heparin gtt Are there bleeding concerns with the patient: No Does the patient have any upcoming procedures: No Plan Warfarin Plan: Give Warfarin Specify Warfarin Dose: 10 mg Is the patient receiving a Bridging Agent: Yes Warfarin Patient Education : Incomplete Linda Waddell RPh * Linda Waddell RPh - 12/01/2024 10:47 AM EDT PHARMACY ANTICOAGULATION WARFARIN (Coumadin) Assessment [address] [address] Name: Tariq Sawant Location: [facility] Date: 12/01/2024 Time: 10:47 AM Tariq Sawant is a 54 year old male admitted for Acute ischemic left MCA stroke (HCC). Pharmacy was consulted for warfarin dosing and monitoring. Anticoagulation Therapy Goals Valves: Mechanical AVR with risk factors (2.5-3.5) Anticipated Duration of Therapy: Lifetime Prior to Admission Management Anticoagulation Regimen: TBD Labs INR Date/Time Value Ref Range Status 12/01/2024 04:57 AM 1.1 0.8 - 1.2 Final 11/30/2024 05:12 AM 0.9 0.8 - 1.2 Final 11/29/2024 05:30 AM 0.9 0.8 - 1.2 Final HGB Date/Time Value Ref Range Status 12/01/2024 04:57 AM 10.4 (L) 14.0 - 16.8 g/dL Final HCT Date/Time Value Ref Range Status 12/01/2024 04:57 AM 32.5 (L) 40.0 - 48.4 % Final PLT Date/Time Value Ref Range Status 12/01/2024 04:57 AM 242 140 - 400 K/uL Final Assessment Dietary Assessment: NPO Today's INR : Subtherapeutic Does the patient have any medication interactions: Yes Please comment: heparin gtt Are there bleeding concerns with the patient: No Does the patient have any upcoming procedures: No Plan Warfarin Plan: Give Warfarin Specify Warfarin Dose: 10 mg Is the patient receiving a Bridging Agent: Yes Warfarin Patient Education : Incomplete Linda Waddell RPh * Collette Jimenez MD - 12/01/2024 6:32 AM EDT STROKE PROGRESS NOTE - Stroke / Vascular Neurology [facility] [address] Name: Tariq Sawant Location: [facility] Date: 12/01/2024 Time: 12:52 PM SUBJECTIVE: Tariq Sawant is a 54 year old patient initially seen for acute onset aphasia and fall, found to have L M1 sub-occlusive thrombus and P1 cut-off s/p L M1 thrombectomy with TICI 3 reperfusion. Initial NIHSS 20. Changes since last visit: No acute events overnight. Patient was seen and examined at bedside this morning. Working with therapy this morning, still remains aphasic with significant expressive aphasia and mild receptive aphasia. Pertinent past medical history: Past Medical History: Diagnosis Date Heart valve replaced by other means Aortic Valve Replacement Sequelae, post-stroke CVA Pertinent past social history: Social History Tobacco Use Smoking status: Former Smokeless tobacco: Never Tobacco comments: 1.5 ppk/day, quit November 09 Vaping Use Vaping status: Never Used Substance Use Topics Alcohol use: No Drug use: Not on file Current Medications: Note that completed medications (per the MAR) continue to display for 24 hours. Ordered medicationsto be given in the future also display. Current Facility-Administered Medications Medication Dose Route Frequency Provider ondansetron (Zofran) inj 4 mg 4 mg IV Push Q6H PRN Libia Thompson DO Warfarin Sodium (Coumadin) tab 10 mg 10 mg Oral QPM 1999 Rika Livingston MD [START ON 12/02/2024] metoprolol succinate XL (toPROL XL) tab 50 mg 50 mg Oral Daily(AM) Jordan Felix DO amLODIPine (Norvasc) tab 5 mg 5 mg Oral Daily(AM) Collette Jimenez MD warfarin check daily dose (PHARMACIST MANAGED) Does Not Apply Daily 1500 Myrna Guevara MD hEParin 1000 UNIT/ML inj 1,400 Units 15 Units/kg (Adjusted) IV Push PRN Jose Vasquez MD hEParin 1000 UNIT/ML inj 2,800 Units 30 Units/kg (Adjusted) IV Push PRN Jose Vasquez MD hEParin 25,000 units in 250 mL (Xa-Cardiac) infusion 0-30 Units/kg/hr (Adjusted) Intravenous Titrate Jose Vasquez MD Polyethylene Glycol 3350 (Miralax) oral powder 17 g 1 Packet Oral Daily(AM) Jose Vasquez MD senna-docusate (Senokot-S) 2 Tablet 2 Tablet Oral BID(AM/PM) Jose Vasquez MD atorvaSTATin (Lipitor) tab 40 mg 40 mg Oral Q 1700 Jose Vasquez MD insulin aspart (NovoLOG) inj Subcutaneous With Meals and HS Jose Vasquez MD tamsulosin (Flomax) cap 0.4 mg 0.4 mg Oral HS Jose Vasquez MD venlafaxine XR (Effexor XR) cap 75 mg 75 mg Oral Daily(AM) Jose Vasquez MD Acetaminophen (Tylenol) tab 650 mg 650 mg Oral Q6H PRN Jose Vasquez MD dextrose 50% inj 25 mL 25 mL IV Push PRN Jose Vasquez MD dextrose 50% inj 50 mL 50 mL IV Push PRN Jose Vasquez MD glucagon (Glucagen) inj 1 mg 1 mg Intramuscular PRN Jose Vasquez MD Glucose (Glutose 15) 40 % gel 15 g of glucose 15 g of glucose Oral PRN Jose Vasquez MD Glucose (Glutose 15) 40 % gel 30 g of glucose 30 g of glucose Oral PRN Jose Vasquez MD glucose chew tab 16 g 16 g Oral PRN Jose Vasquez MD sodium chloride 0.9 % flush central line 10 mL 10 mL IV Push Q8H Jose Vasquez MD OBJECTIVE: Physical Examination: Most Recent Vital Signs: BP: 101 mmHg/70 mmHg (12/01/241116) Pulse: 76 (12/01/241116) Resp: 18 (12/01/241116) Temp: 37.39 C (12/01/241116) Temp Summary: Temp Min: 36.3 °C (97.3 °F) Max: 37.6 °C (99.7 °F) SpO2: 95 % (12/01/24 111) O2 flow rate: 0 L/MIN (12/01/24 0615) Supplemental O2 Delivery: Room Air, None (12/01/24 111) Weight: 121.7 kg (268 lb 3.2 oz) (12/01/24 0237) Height: 175.3 cm (5' 9.02") (11/24/24 1402) Body mass index is 39.59 kg/m². Vital Signs Last 24 Hours: Systolic BP: Most Recent Systolic BP Av.7 mmHg Min: 99 mmHg Max: 127 mmHg Temperature: Most Recent Temperature Av.2 C Min: 36.28 C Max: 37.61 C Pulse: Pulse Av.6 Min: 75 Max: 104 Respirations: Resp Av.6 Min: 13 Max: 28 SpO2: SpO2 Av.9 % Min: 91 % Max: 100 % General Examination: Constitutional: Appearance non-obese, no deformities, and well groomed Head/face, ears, nose, throat: normocephalic, atraumatic Cardiovascular: normal heart sounds, regular rate, regular rhythm, and normal pulses Psychiatric: normal mood, normal affect, and not agitated Neurologic Examination: Mental Status and Orientation: awake, alert, oriented x 3 Attention: normal Knowledge:unable to assess due to aphasia Language: Decreased fluency, impaired repetition- expressive aphasia with some receptive aphasia Speech: Mild dysarthria Cranial Nerves: CN 2 - pupils round, equal, reactive to light CN 3, 4, 6 - extra-ocular movements intact and no nystagmus CN 5 - facial sensation intact V1-3 CN 7 - no facial asymmetry CN 8 - intact hearing CN 9, 10 - palate symmetric, uvula midline, no deviation CN 11 - shoulder shrug full strength CN 12 - tongue protrudes midline Sensory: Decreased sensation to fine touch in the right upper and lower extremities Coordination: intact with finger to nose testing in the left upper extremity Gait: deferred due to fall risk Muscle Tone: increased on right upper and lower extremity [employer] [place] [employer] Stroke Scale: 1A. LOC: 0 1B. Question: 2 1C. Commands: 0 2. Gaze: 0 3. Visual Srivastava: 0 4. Facial Palsy: 0 5A. Arm Left: 0 5B. Arm Right: 0 6A. Leg Left: 0 6B. Leg Right: 1 7. Ataxia: 0 8. Sensory: 1 9. Aphasia: 2 10. Dysarthria: 0 11. Extinction: 0 Total: 7 I have reviewed Radiologic Studies and noted significant findings as follows: MRI on 11/25/24 : 1. Small acute left MCA infarct. No acute hemorrhagic transformation or herniation. 2. Additional small to moderate chronic left MCA territory infarct. Other chronic scattered supratentorial and infratentorial multi territorial infarcts. 3. Recommend short interval non-contrast CT head follow-up. CTA HEAD/CTA NECK Addendum Date: 11/23/2024 THIS REPORT CONTAINS FINDINGS THAT MAY BE CRITICAL TO PATIENT CARE. The findings were verbally communicated via telephone conference with ROSITA Sams at 8:52 PM EDT on 11/23/2024. The findings were acknowledged and understood. THIS DOCUMENT HAS BEEN ELECTRONICALLY SIGNED BY PARTH HIGGINS MD Result Date: 11/23/2024 IMPRESSION: 1. There is a short segment near occlusion of the distal most aspect of M1 segment leftmiddle cerebral artery with some preserved filling of the attenuated appearing M2 branching distal to this. Uncertain if this is related to the old infarction, or if there is a new thrombus here. 2. There is abrupt occlusion just past the origin left posterior cerebral artery with minimal filling peripheral to this. XR CHEST 1 VIEW Result Date: 11/23/2024 IMPRESSION: No lobar consolidation, pleural effusion or pulmonary edema. THIS DOCUMENT HAS BEEN ELECTRONICALLY SIGNED BY PARTH HIGGINS MD XR PELVIS 1 VIEW Result Date: 11/23/2024 IMPRESSION: No fracture seen on trauma AP views of the pelvis. THIS DOCUMENT HAS BEEN ELECTRONICALLY SIGNED BY PARTH HIGGINS MD CT CHEST W CONTRAST Result Date: 11/23/2024 IMPRESSION: 1. No lobar consolidation, pleural effusion or pulmonary edema. 2. No acute fracture. No pneumothorax.CT ABD/PELVIS W IV CONTRAST - WO ORAL CONTRAST Result Date: 11/23/2024 IMPRESSION: 1. No lobar consolidation, pleural effusion or pulmonary edema. 2. No acute fracture. No pneumothorax. CT HEAD/BRAIN WO CONTRAST Result Date: 11/23/2024 IMPRESSION: No acute intracranial abnormality. If symptoms persist, consider further evaluation with MRI, if there are no contraindications to obtaining a MRI scan. THIS DOCUMENT HAS BEEN ELECTRONICALLY SIGNED BY GERARDO ARREDONDO MD CT C SPINE WO CONTRAST Result Date: 11/23/2024 IMPRESSION: 1. No acute bony abnormality. Degenerative changes of the cervical spine. If symptoms persist, consider further evaluation with MRI, if there are no contraindications to obtaining a MRI scan. 2. Asymmetric appearance of the piriform sinuses with relative effacement of the left side. Underlying mucosal lesion cannot be excluded. Recommend correlation with direct visualization. I have reviewed the following Diagnostic Tests and noted significant findings as follows: TTE w/o bubble study 11/07/2019: No information available for AVR The examination is adequate to evaluate the referral indication. The qualitative LV ejection fraction is 55-59% (normal). The left ventricular cavity size is normal. The LV wall thickness is mildly increased (concentric). The left ventricular wall motion is normal by limited analysis. All left ventricular segments are not visualized. The left atrium is mildly enlarged. The left ventricular diastolic function is mildly abnormal (grade I). S/P AVR [facility] mechanical 03/1999. Borderline increase in the gradient peak 31 mm Hg and mean 20 mm Hg. Grossly functiong normaly Significant aortic valve prosthesis regurgitation is absent. There is no previous study available for comparison. TTE with bubble study 11/25/2024: EF 50-54%, moderate sized apical wall motion abnormality with hypokinesis to akinesis. Aortic root and proximal ascending aorta severely enlarged. Aortic valve mechanical prostehesis present. Severe AV prosthesis stenosis. LA severely enlarged. Negative bubble study, no AD or PFO seen. The aortic root and proximal ascending aorta are severely enlarged EKG 11/24/2024: Normal sinus rhythm LTM EEG 11/25/2024: Summary of Findings: This EEG is abnormal Continuous slow, generalized lateralized left hemisphere Diagnostic Significance: This EEG is suggestive of cortical dysfunction in the left hemisphere region. No EEG seizures or epileptiform discharges were recorded. LABS: Labs reviewed as indicated below: HB A1c-6.6 LDL-64 IMPRESSION: Mr. 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 He presented to [facility] ED with aphasia following a fall and head injury. CTA H/N showed a left M1 sub-occlusive thrombus and P1 cut-off. The patient was not a TNK candidate given his LKW. He was an endovascular candidate and was [place] [facility] s/p left M1 TICI3 with an initial NIHSS of 20. MRI Brain on 11/26/2024 confirmed an acute left MCA territory stroke, with a moderate-sized infarct in the left temporal lobe and smaller infarcts in the left frontallobe. Cardioembolic etiology is suspected in the setting of mechanical aortic valve replacement (despite Eliquis therapy), with TTE also showing severe aortic stenosis. Regarding secondary stroke prevention, the patient was started on warfarin therapy on 11/29/2024 with a plan to bridge with heparin, given the etiology is most likely cardioembolic from mechanical aortic valve replacement despite Eliquis therapy. He underwent transesophageal echocardiogram yesterday however the procedure was unsuccessful at providing diagnostic images. Cardiology order cardiac CT. RECOMMENDATIONS/PLAN: Left M1 sub-occlusive thrombus Acute L MCA Territory Strokes - STAT CT head for any changes in neuro exam. -on IV heparin drip cardiac nomogram currently due to the presence of mechanical valve - warfarin therapy initiated on 11/29/2024 - Telemetry to assess for cardiac arrhythmias - Goal SBP < 160 - Continue atorvastatin 40 mg for goal LDL < 70. - Manage blood glucose for goal HbA1C < 7.0%. 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 HLD - Atorvastatin 40 mg daily DMT2 - MDSSI BPH - Tamsulosin 0.4 mg Mood - Venlafaxine 75 mg S/p Mechanical aortic valve replacement ([facility], 03/1999, valve size unknown) Severe prosthetic aortic valve stenosis CT surgery consulted to evaluate for mechanical valve dysfunction/thrombosis and aortic root aneurysm for additional workup/combined intervention. LI is unsuccessful without significant diagnostic images Planned for cardiac CT today Stroke Checklist: DVT Prophylaxis: receiving mechanical, but chemical contraindicated, reason: Anticoagulation Antithrombotic Therapy: receiving antiplatelet or anticoagulation Atrial Fibrillation or Flutter: no Statin: receiving - high intensity Stroke Education: personal risk factors for stroke Rehab Therapy Plan: O.T., P.T., Speech, and likely inpatient rehab Patient Has Decision Making Capacity: yes Code Status: Full Code Patient discussed and examined with Dr Miki Jimenez PGY- 2 Neurology Cosigned by Rika Livingston MD at 12/02/2024 8:07 AM EDT Associated attestation - Rika Livingston MD - 12/02/2024 8:07 AM EDT I saw and evaluated the patient 12/01. I have reviewed the resident/fellow physician note and agree. * Linda Waddell, [facility] - 11/30/2024 11:18 AM EDT PHARMACY ANTICOAGULATION WARFARIN (Coumadin) Assessment [facility] [address] Name: Tariq Sawant [place] [facility] A463/B Date: 11/30/2024 Time: 11:18 AM Tariq Sawant is a 54 year old male admitted for Acute ischemic left MCA stroke (HCC). Pharmacy was consulted for warfarin dosing and monitoring. Anticoagulation Therapy Goals Valves: Mechanical AVR with risk factors (2.5-3.5) Anticipated Duration of Therapy: Lifetime Prior to Admission Management Anticoagulation Regimen: TBD Labs INR Date/Time Value Ref Range Status 11/30/2024 05:12 AM 0.9 0.8 - 1.2 Final 11/29/2024 05:30 AM 0.9 0.8 - 1.2 Final 11/28/2024 05:51 AM 0.9 0.8 - 1.2 Final HGB Date/Time Value Ref Range Status 11/30/2024 05:12 AM 11.4 (L) 14.0 - 16.8 g/dL Final HCT Date/Time Value Ref Range Status 11/30/2024 05:12 AM 35.5 (L) 40.0 - 48.4 % Final PLT Date/Time Value Ref Range Status 11/30/2024 05:12 AM 240 140 - 400 K/uL Final Assessment Dietary Assessment: NPO Today's INR : Subtherapeutic Does the patient have any medication interactions: Yes Please comment: heparin gtt Are there bleeding concerns with the patient: No Does the patient have any upcoming procedures: No Plan Warfarin Plan: Give Warfarin Specify Warfarin Dose: 5 mg Is the patient receiving a Bridging Agent: Yes Warfarin Patient Education : Incomplete Linda Waddell RPh * Collette Jimenez MD - 11/30/2024 6:26 AM EDT STROKE PROGRESS NOTE - Stroke / Vascular Neurology [facility] [address] Name: Tariq Sawant Location: [facility] A463/B Date: 11/30/2024 Time: 6:26 AM SUBJECTIVE: Tariq Sawant is a 54 year old patient initially seen for acute onset aphasia and fall, found to have L M1 sub-occlusive thrombus and P1 cut-off s/p L M1 thrombectomy with TICI 3 reperfusion. Initial NIHSS 20. Changes since last visit: No acute events overnight. Patient was seen and examined at bedside this morning. He is sleeping, denied any new complaints upon waking up. Still remained largely aphasic with expressive aphasia more than receptive. Pertinent past medical history: Past Medical History: Diagnosis Date Heart valve replaced by other means Aortic Valve Replacement Sequelae, post-stroke CVA Pertinent past social history: Social History Tobacco Use Smoking status: Former Smokeless tobacco: Never Tobacco comments: 1.5 ppk/day, quit November 09 Vaping Use Vaping status: Never Used Substance Use Topics Alcohol use: No Drug use: Not on file Current Medications: Note that completed medications (per the MAR) continue to display for 24 hours. Ordered medicationsto be given in the future also display. Current Facility-Administered Medications Medication Dose Route Frequency Provider amLODIPine (Norvasc) tab 5 mg 5 mg Oral Daily(AM) Collette Jimenez MD benazepril (Lotensin) tab 20 mg 20 mg Oral Daily(AM) Collette Jimenez MD Metoprolol Tartrate (Lopressor) tab 12.5 mg 12.5 mg Oral Q12H Collette Jimenez MD warfarin check daily dose (PHARMACIST MANAGED) Does Not Apply Daily 1500 Myrna Guevara MD hEParin 1000 UNIT/ML inj 1,400 Units 15 Units/kg (Adjusted) IV Push PRN Jose Vasquez MD hEParin 1000 UNIT/ML inj 2,800 Units 30 Units/kg (Adjusted) IV Push PRN Jose Vasquez MD hEParin 25,000 units in 250 mL (Xa-Cardiac) infusion 0-30 Units/kg/hr (Adjusted) Intravenous Titrate Jose Vasquez MD Polyethylene Glycol 3350 (Miralax) oral powder 17 g 1 Packet Oral Daily(AM) Jose Vasquez MD senna-docusate (Senokot-S) 2 Tablet 2 Tablet Oral BID(AM/PM) Jose Vasquez MD atorvaSTATin (Lipitor) tab 40 mg 40 mg Oral Q 1700 Jose Vasquez MD insulin aspart (NovoLOG) inj Subcutaneous With Meals and HS Jose Vasquez MD tamsulosin (Flomax) cap 0.4 mg 0.4 mg Oral HS Jose Vasquez MD venlafaxine XR (Effexor XR) cap 75 mg 75 mg Oral Daily(AM) Jose Vasquez MD Acetaminophen (Tylenol) tab 650 mg 650 mg Oral Q6H PRN Jose Vasquez MD dextrose 50% inj 25 mL 25 mL IV Push Jose Mckay MD dextrose 50% inj 50 mL 50 mL IV Push PRN Jose Vasquez MD glucagon (Glucagen) inj 1 mg 1 mg Intramuscular PRN Jose Vasquez MD Glucose (Glutose 15) 40 % gel 15 g of glucose 15 g of glucose Oral PRN Jose Vasquez MD Glucose (Glutose 15) 40 % gel 30 g of glucose 30 g of glucose Oral PRN Jose Vasquez MD glucose chew tab 16 g 16 g Oral PRN Jose Vasquez MD sodium chloride 0.9 % flush central line 10 mL 10 mL IV Push Q8H Jose Vasquez MD OBJECTIVE: Physical Examination: Most Recent Vital Signs: BP: 106 mmHg/79 mmHg (11/30/24250) Pulse: 90 (11/30/24250) Resp: 20 (11/30/24250) Temp: 37.39 C (11/30/24250) Temp Summary: Temp Min: 36.8 °C (98.2 °F) Max: 38.7 °C (101.7 °F) SpO2: 94 % (11/30/24250) O2 flow rate: 0 L/MIN (11/30/24250) Supplemental O2 Delivery: Room Air, None (11/30/24250) Weight: 123.1 kg (271 lb 6.4 oz) (11/30/24 0154) Height: 175.3 cm (5' 9.02") (11/24/24 1402) Body mass index is 40.06 kg/m². Vital Signs Last 24 Hours: Systolic BP: Most Recent Systolic BP Av.7 mmHg Min: 91 mmHg Max: 123 mmHg Temperature: Most Recent Temperature Av.6 C Min: 36.78 C Max: 38.72 C Pulse: Pulse Av.3 Min: 89 Max: 104 Respirations: Resp Av.4 Min: 18 Max: 20 SpO2: SpO2 Av.8 % Min: 94 % Max: 99 % General Examination: Constitutional: Appearance non-obese, no deformities, and well groomed Head/face, ears, nose, throat: normocephalic, atraumatic Cardiovascular: normal heart sounds, regular rate, regular rhythm, and normal pulses Psychiatric: normal mood and normal affect Neurologic Examination: Mental Status and Orientation: Awake, alert Memory: Diminished Attention: normal Knowledge:diminished Language: Expressive aphasia with some receptive aphasia Speech: Mild dysarthria Cranial Nerves: CN 2 - no visual defect on confrontation and pupils round, equal, reactive to light CN 3, 4, 6 - extra-ocular movements intact and no nystagmus CN 5 - facial sensation intact V1-3 CN 7 - no facial asymmetry CN 8 - intact hearing CN 9, 10 - palate symmetric, uvula midline, no deviation CN 11 - shoulder shrug full strength CN 12 - tongue protrudes midline Sensory: Decreased sensation to pinprick in the right upper and lower extremity Coordination: Intact with [id number] testing in the left upper extremity. Not able to perform in the right upper and lower extremity Gait: deferred due to fall risk Muscle Tone: Increased tone in the right upper and lower extremity [employer] Stroke Scale: 1A. LOC: 0 1B. Question: 1 1C. Commands: 0 2. Gaze: 0 3. Visual Srivastava: 0 4. Facial Palsy: 0 5A. Arm Left: 0 5B. Arm Right: 0 6A. Leg Left: 0 6B. Leg Right: 1 7. Ataxia: 0 8. Sensory: 1 9. Aphasia: 2 10. Dysarthria: 1 11. Extinction: 0 Total: 6 I have reviewed Radiologic Studies and noted significant findings as follows: MRI on 11/25/24 : 1. Small acute left MCA infarct. No acute hemorrhagic transformation or herniation. 2. Additional small to moderate chronic left MCA territory infarct. Other chronic scattered supratentorial and infratentorial multi territorial infarcts. 3. Recommend short interval non-contrast CT head follow-up. CTA HEAD/CTA NECK Addendum Date: 11/23/2024 THIS REPORT CONTAINS FINDINGS THAT MAY BE CRITICAL TO PATIENT CARE. The findings were verbally communicated via telephone conference with ROSITA Sams at 8:52 PM EDT on 11/23/2024. The findings were acknowledged and understood. THIS DOCUMENT HAS BEEN ELECTRONICALLY SIGNED BY PARTH HIGGINS MD Result Date: 11/23/2024 IMPRESSION: 1. There is a short segment near occlusion of the distal most aspect of M1 segment leftmiddle cerebral artery with some preserved filling of the attenuated appearing M2 branching distal to this. Uncertain if this is related to the old infarction, or if there is a new thrombus here. 2. There is abrupt occlusion just past the origin left posterior cerebral artery with minimal filling peripheral to this. XR CHEST 1 VIEW Result Date: 11/23/2024 IMPRESSION: No lobar consolidation, pleural effusion or pulmonary edema. THIS DOCUMENT HAS BEEN ELECTRONICALLY SIGNED BY PARTH HIGGINS MD XR PELVIS 1 VIEW Result Date: 11/23/2024 IMPRESSION: No fracture seen on trauma AP views of the pelvis. THIS DOCUMENT HAS BEEN ELECTRONICALLY SIGNED BY PARTH HIGGINS MD CT CHEST W CONTRAST Result Date: 11/23/2024 IMPRESSION: 1. No lobar consolidation, pleural effusion or pulmonary edema. 2. No acute fracture. No pneumothorax.CT ABD/PELVIS W IV CONTRAST - WO ORAL CONTRAST Result Date: 11/23/2024 IMPRESSION: 1. No lobar consolidation, pleural effusion or pulmonary edema. 2. No acute fracture. No pneumothorax. CT HEAD/BRAIN WO CONTRAST Result Date: 11/23/2024 IMPRESSION: No acute intracranial abnormality. If symptoms persist, consider further evaluation with MRI, if there are no contraindications to obtaining a MRI scan. THIS DOCUMENT HAS BEEN ELECTRONICALLY SIGNED BY GERARDO ARREDONDO MD CT C SPINE WO CONTRAST Result Date: 11/23/2024 IMPRESSION: 1. No acute bony abnormality. Degenerative changes of the cervical spine. If symptoms persist, consider further evaluation with MRI, if there are no contraindications to obtaining a MRI scan. 2. Asymmetric appearance of the piriform sinuses with relative effacement of the left side. Underlying mucosal lesion cannot be excluded. Recommend correlation with direct visualization. I have reviewed the following Diagnostic Tests and noted significant findings as follows: TTE w/o bubble study 11/07/2019: No information available for AVR The examination is adequate to evaluate the referral indication. The qualitative LV ejection fraction is 55-59% (normal). The left ventricular cavity size is normal. The LV wall thickness is mildly increased (concentric). The left ventricular wall motion is normal by limited analysis. All left ventricular segments are not visualized. The left atrium is mildly enlarged. The left ventricular diastolic function is mildly abnormal (grade I). S/P AVR [facility] mechanical 03/1999. Borderline increase in the gradient peak 31 mm Hg and mean 20 mm Hg. Grossly functiong normaly Significant aortic valve prosthesis regurgitation is absent. There is no previous study available for comparison. TTE with bubble study 11/25/2024: EF 50-54%, moderate sized apical wall motion abnormality with hypokinesis to akinesis. Aortic root and proximal ascending aorta severely enlarged. Aortic valve mechanical prostehesis present. Severe AV prosthesis stenosis. LA severely enlarged. Negative bubble study, no AD or PFO seen. The aortic root and proximal ascending aorta are severely enlarged EKG 11/24/2024: Normal sinus rhythm LTM EEG 11/25/2024: Summary of Findings: This EEG is abnormal Continuous slow, generalized lateralized left hemisphere Diagnostic Significance: This EEG is suggestive of cortical dysfunction in the left hemisphere region. No EEG seizures or epileptiform discharges were recorded. LABS: Labs reviewed as indicated below: Blood Gas: Lab results within last 7 days (see chart for full results) Units 11/24/24 0151 11/23/24 2345 11/23/24 2304 pH, Arterial units 7.326* 7.330* 7.323* pCO2, Arterial mmHg 42.3 41.7 43.7 pO2, Arterial mmHg 91.6 100.0 95.0 FiO2 % Not Provided Not Provided Not Provided Chemistry Panel: Lab results within last 7 days (see chart for full results) Units 11/30/24 0512 11/29/24 0530 11/28/24 0551 SODIUM mmol/L 138 138 139 POTASSIUM mmol/L 4.0 3.9 4.0 CHLORIDE mmol/L 102 101 103 CO2 mmol/L 23 25 26 BUN mg/dL 20 14 13 CREATININE mg/dL 1.4* 1.1 1.1 GLUCOSE mg/dL 148* 152* 183* CALCIUM mg/dL 9.1 8.8 8.4 Magnesium mg/dL 1.8 1.6 1.8 Phosphorus mg/dL 4.3 3.7 3.5 ANION GAP mmol/L 13 12 10 Complete Blood Count: Lab results within last 7 days (see chart for full results) Units 11/30/24 0512 11/29/24 0531 11/28/24 0551 WBC K/uL 9.38 8.38 8.00 HGB g/dL 11.4* 11.0* 10.3* HCT % 35.5* 33.9* 31.2* PLT K/uL 240 213 176 MCV fL 93.2 91.1 91.0 Cardiac Studies: Lab results within last 7 days (see chart for full results) Units 11/25/24 1654 11/23/24 1902 Troponin T, High Sensitivity ng/L 16 12 Coagulation Studies: Lab results within last 7 days (see chart for full results) Units 11/30/24 0512 11/29/24 1846 11/29/24 1227 11/29/24 0530 11/28/24 0743 11/28/24 0551 11/26/24 1944 11/26/24 1221 Prothrombin Time seconds 12.4 -- -- 12.2 -- 12.0 < > 12.3 INR 0.9 -- -- 0.9 -- 0.9 < > 0.9 aPTT seconds -- -- -- -- -- -- -- 23 Heparin, Unfractionated IU/mL 0.43* 0.54* 0.53* 0.23* < > 0.20* < > 0.12* < > = values in this interval not displayed. Liver Function Panel: Lab results within last 7 days (see chart for full results) Units 11/24/24 0505 11/23/24 1902 Albumin g/dL -- 3.9 Protein g/dL -- 6.8 Bilirubin, Total mg/dL -- 0.7 AST U/L -- 31 ALT U/L -- 32 Alkaline Phosphatase U/L -- 53 Triglycerides mg/dL 266* -- IMPRESSION: Mr. 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 He presented to [facility] ED with aphasia following a fall and head injury. CTA H/N showed a left M1 sub-occlusive thrombus and P1 cut-off. The patient was not a TNK candidate given his LKW. He was an endovascular candidate and was [place] [facility] s/p left M1 TICI3 with an initial NIHSS of 20. MRI Brain on 11/26/2024 confirmed an acute left MCA territory stroke, with a moderate-sized infarct in the left temporal lobe and smaller infarcts in the left frontallobe. Cardioembolic etiology is suspected in the setting of mechanical aortic valve replacement (despite Eliquis therapy), with TTE also showing severe aortic stenosis. Regarding secondary stroke prevention, the patient was started on warfarin therapy on 11/29/2024 with a plan to bridge with heparin, given the etiology is most likely cardioembolic from mechanical aortic valve replacement despite Eliquis therapy. He is scheduled to undergo transesophageal echocardiogram around 1400 today. His creatinine increased from 1.1-1.4 in a span of less than 24 hours concerning for acute kidney injury, held his benazepril for now. Additionally, the hospital course was complicated by a hematoma from the patient's endovascular intervention. A repeat duplex scan on 11/28/2024 excluded a pseudoaneurysm or AV fistula. RECOMMENDATIONS/PLAN: Left M1 sub-occlusive thrombus Acute L MCA Territory Strokes - STAT CT head for any changes in neuro exam. -on IV heparin drip cardiac nomogram currently due to the presence of mechanical valve - warfarin therapy initiated on 11/29/2024 - Telemetry to assess for cardiac arrhythmias - Goal SBP < 160 - Continue atorvastatin 40 mg for goal LDL < 70. - Manage blood glucose for goal HbA1C < 7.0%. - PT, OT, speech therapy Chronic Issues: HTN - Amlodipine 5 mg daily (SPRING MACHINE OPERATOR 10 mg, reduced per cardiology's advice), Metoprolol 12.5 twice daily (SPRING MACHINE OPERATOR 25 mg [id number] reduced to taper beta johnathon of in the setting of severe per Cardiology advice). Held SPRING MACHINE OPERATOR benazepril 20 mg once a day for now in view of increasing creatinine. HLD - Atorvastatin 40 mg daily DMT2 - MDSSI BPH - Tamsulosin 0.4 mg Mood - Venlafaxine 75 mg S/p Mechanical aortic valve replacement ([facility] [facility], 03/1999, valve size unknown) Severe prosthetic aortic valve stenosis CT surgery consulted to evaluate for mechanical valve dysfunction/thrombosis and aortic root aneurysm for additional workup/combined intervention. LI scheduled for 1400 today Stroke Checklist: DVT Prophylaxis: receiving chemical and mechanical Antithrombotic Therapy: receiving antiplatelet or anticoagulation Atrial Fibrillation or Flutter: no Statin: receiving - high intensity Stroke Education: could not be provided due to: patient has aphasia Rehab Therapy Plan: O.T., P.T., Speech, and likely inpatient rehab Patient Has Decision Making Capacity: no, reason: Aphasia Code Status: Full Code Patient discussed and examined with Dr Miki Jimenez PGY- 2 Neurology Cosigned by Rika Livingston MD at 12/02/2024 8:07 AM EDT Associated attestation - Rika Livingston MD - 12/02/2024 8:07 AM EDT I saw and evaluated the patient 11/30. I have reviewed the resident/fellow physician note and agree. * Linda Waddell, [facility] - 11/29/2024 10:56 AM EDT PHARMACY ANTICOAGULATION WARFARIN (Coumadin) Assessment [address] [address] Name: Tariq Sawant [place] [facility] [place] Date: 11/29/2024 Time: 10:56 AM Tariq Sawant is a 54 year old male admitted for Acute ischemic left MCA stroke (HCC). Pharmacy was consulted for warfarin dosing and monitoring. Anticoagulation Therapy Goals Valves: Mechanical AVR with risk factors (2.5-3.5) Anticipated Duration of Therapy: Lifetime Prior to Admission Management Anticoagulation Regimen: TBD Labs INR Date/Time Value Ref Range Status 11/29/2024 05:30 AM 0.9 0.8 - 1.2 Final 11/28/2024 05:51 AM 0.9 0.8 - 1.2 Final 11/27/2024 03:12 AM 0.9 0.8 - 1.2 Final HGB Date/Time Value Ref Range Status 11/29/2024 05:31 AM 11.0 (L) 14.0 - 16.8 g/dL Final HCT Date/Time Value Ref Range Status 11/29/2024 05:31 AM 33.9 (L) 40.0 - 48.4 % Final PLT Date/Time Value Ref Range Status 11/29/2024 05:31 AM 213 140 - 400 K/uL Final Assessment Dietary Assessment: NPO Today's INR : Subtherapeutic Does the patient have any medication interactions: Yes Please comment: heparin gtt Are there bleeding concerns with the patient: No Does the patient have any upcoming procedures: No Plan Warfarin Plan: Give Warfarin Specify Warfarin Dose: 5 mg Is the patient receiving a Bridging Agent: Yes Warfarin Patient Education : Incomplete Linda Waddell RPh * Collette Jimenez MD - 11/29/2024 6:57 AM EDT STROKE PROGRESS NOTE - Stroke / Vascular Neurology [facility] [address] Name: Tariq Sawant [place] [facility] A463/B Date: 11/29/2024 Time: 6:57 AM SUBJECTIVE: Tariq Sawant is a 54 year old patient initially seen for acute onset aphasia and fall, found to have L M1 sub-occlusive thrombus and P1 cut-off s/p L M1 thrombectomy with TICI 3 reperfusion. Initial NIHSS 20. Changes since last visit: No acute events overnight. Patient was seen and examined at bedside this morning. Denied any new symptoms, able to follow mostof the commands with significant expressive aphasia. Pertinent past medical history: Past Medical History: Diagnosis Date Heart valve replaced by other means Aortic Valve Replacement Sequelae, post-stroke CVA Pertinent past social history: Social History Tobacco Use Smoking status: Former Smokeless tobacco: Never Tobacco comments: 1.5 ppk/day, quit November 09 Vaping Use Vaping status: Never Used Substance Use Topics Alcohol use: No Drug use: Not on file Current Medications: Note that completed medications (per the MAR) continue to display for 24 hours. Ordered medicationsto be given in the future also display. Current Facility-Administered Medications Medication Dose Route Frequency Provider hEParin 1000 UNIT/ML inj 1,400 Units 15 Units/kg (Adjusted) IV Push PRN Jose Vasquez MD hEParin 1000 UNIT/ML inj 2,800 Units 30 Units/kg (Adjusted) IV Push PRN Jose Vasquez MD hEParin 25,000 units in 250 mL (Xa-Cardiac) infusion 0-30 Units/kg/hr (Adjusted) Intravenous Titrate Jose Vasquez MD Metoprolol Tartrate (Lopressor) tab 25 mg 25 mg Oral Q12H Jose Vasquez MD Polyethylene Glycol 3350 (Miralax) oral powder 17 g 1 Packet Oral Daily(AM) Jose Vasquez MD senna-docusate (Senokot-S) 2 Tablet 2 Tablet Oral BID(AM/PM) Jose Vasquez MD amLODIPine (Norvasc) tab 10 mg 10 mg Oral Daily(AM) Jose Vasquez MD atorvaSTATin (Lipitor) tab 40 mg 40 mg Oral Q 1700 Jose Vasquez MD insulin aspart (NovoLOG) inj Subcutaneous With Meals and HS Jose Vasquez MD tamsulosin (Flomax) cap 0.4 mg 0.4 mg Oral HS Jose Vasquez MD venlafaxine XR (Effexor XR) cap 75 mg 75 mg Oral Daily(AM) Jose Vasquez MD Acetaminophen (Tylenol) tab 650 mg 650 mg Oral Q6H PRN Jose Vasquez MD dextrose 50% inj 25 mL 25 mL IV Push PRN Jose Vasquez MD dextrose 50% inj 50 mL 50 mL IV Push PRN Jose Vasquez MD glucagon (Glucagen) inj 1 mg 1 mg Intramuscular PRN Jose Vasquez MD Glucose (Glutose 15) 40 % gel 15 g of glucose 15 g of glucose Oral PRN Jose Vasquez MD Glucose (Glutose 15) 40 % gel 30 g of glucose 30 g of glucose Oral PRN Jose Vasquez MD glucose chew tab 16 g 16 g Oral PRN Jose Vasquez MD sodium chloride 0.9 % flush central line 10 mL 10 mL IV Push Q8H Jose Vasquez MD OBJECTIVE: Physical Examination: Most Recent Vital Signs: BP: 130 mmHg/79 mmHg (11/29/24 0620) Pulse: 87 (11/29/24619) Resp: 18 (11/29/24619) Temp: 37.61 C (11/29/24619) Temp Summary: Temp Min: 37 °C (98.6 °F) Max: 37.7 °C (99.9 °F) SpO2: 98 % (11/29/24619) O2 flow rate: 0 L/MIN (11/29/24619) Supplemental O2 Delivery: Room Air, None (11/29/24619) Weight: 121.6 kg (268 lb 1.6 oz) (11/29/24 0123) Height: 175.3 cm (5' 9.02") (11/24/24 1402) Body mass index is 39.57 kg/m². Vital Signs Last 24 Hours: Systolic BP: Most Recent Systolic BP Av.6 mmHg Min: 112 mmHg Max: 159 mmHg Temperature: Most Recent Temperature Av.4 C Min: 37 C Max: 37.72 C Pulse: Pulse Av.7 Min: 86 Max: 101 Respirations: Resp Av.6 Min: 15 Max: 23 SpO2: SpO2 Av.1 % Min: 91 % Max: 100 % General Examination: Constitutional: Appearance no deformities and well groomed Head/face, ears, nose, throat: normocephalic, atraumatic Cardiovascular: normal heart sounds, regular rate, regular rhythm, and normal pulses Psychiatric: normal mood and normal affect Neurologic Examination: Mental Status and Orientation: Awake, alert Memory: Diminished Attention: normal Knowledge:diminished Language: Expressive aphasia with some receptive aphasia Speech: Mild dysarthria Cranial Nerves: CN 2 - no visual defect on confrontation and pupils round, equal, reactive to light CN 3, 4, 6 - extra-ocular movements intact and no nystagmus CN 5 - facial sensation intact V1-3 CN 7 - no facial asymmetry CN 8 - intact hearing CN 9, 10 - palate symmetric, uvula midline, no deviation CN 11 - shoulder shrug full strength CN 12 - tongue protrudes midline Sensory: Decreased sensation to light touch and pinprick in the right upper and lower extremity Coordination: Intact with [id number] testing on the left upper extremity, not able to perform in the right upper and lower extremity Gait: deferred due to fall risk Muscle Tone: Increased tone in the right upper and lower extremity Muscle exam: Arm Right Left Leg Right Left Deltoid 4/5 5/5 Iliopsoas 5/5 5/5 Biceps 5/5 5/5 Quads 5/5 5/5 Triceps 5/5 5/5 Hamstrings 5/5 5/5 Wrist Extension 1/5 5/5 Ankle Dorsi Flexion 3/5 5/5 Ankle Plantar Flexion 3/5 5/5 Dorsal Interossei 2/5 5/5 Abductor Pollicis Brevis 2/5 5/5 [employer] Stroke Scale: 1A. LOC: 0 1B. Question: 1 1C. Commands: 1 2. Gaze: 0 3. Visual Srivastava: 0 4. Facial Palsy: 0 5A. Arm Left: 0 5B. Arm Right: 0 6A. Leg Left: 0 6B. Leg Right: 0 7. Ataxia: 0 8. Sensory: 0 9. Aphasia: 2 10. Dysarthria: 1 11. Extinction: 0 Total: 5 I have reviewed Radiologic Studies and noted significant findings as follows: MRI on 11/25/24 : 1. Small acute left MCA infarct. No acute hemorrhagic transformation or herniation. 2. Additional small to moderate chronic left MCA territory infarct. Other chronic scattered supratentorial and infratentorial multi territorial infarcts. 3. Recommend short interval non-contrast CT head follow-up. CTA HEAD/CTA NECK Addendum Date: 11/23/2024 THIS REPORT CONTAINS FINDINGS THAT MAY BE CRITICAL TO PATIENT CARE. The findings were verbally communicated via telephone conference with ROSITA Sams at 8:52 PM EDT on 11/23/2024. The findings were acknowledged and understood. THIS DOCUMENT HAS BEEN ELECTRONICALLY SIGNED BY PARTH HIGGINS MD Result Date: 11/23/2024 IMPRESSION: 1. There is a short segment near occlusion of the distal most aspect of M1 segment leftmiddle cerebral artery with some preserved filling of the attenuated appearing M2 branching distal to this. Uncertain if this is related to the old infarction, or if there is a new thrombus here. 2. There is abrupt occlusion just past the origin left posterior cerebral artery with minimal filling peripheral to this. XR CHEST 1 VIEW Result Date: 11/23/2024 IMPRESSION: No lobar consolidation, pleural effusion or pulmonary edema. THIS DOCUMENT HAS BEEN ELECTRONICALLY SIGNED BY PARTH HIGGINS MD XR PELVIS 1 VIEW Result Date: 11/23/2024 IMPRESSION: No fracture seen on trauma AP views of the pelvis. THIS DOCUMENT HAS BEEN ELECTRONICALLY SIGNED BY PARTH HIGGINS MD CT CHEST W CONTRAST Result Date: 11/23/2024 IMPRESSION: 1. No lobar consolidation, pleural effusion or pulmonary edema. 2. No acute fracture. No pneumothorax.CT ABD/PELVIS W IV CONTRAST - WO ORAL CONTRAST Result Date: 11/23/2024 IMPRESSION: 1. No lobar consolidation, pleural effusion or pulmonary edema. 2. No acute fracture. No pneumothorax. CT HEAD/BRAIN WO CONTRAST Result Date: 11/23/2024 IMPRESSION: No acute intracranial abnormality. If symptoms persist, consider further evaluation with MRI, if there are no contraindications to obtaining a MRI scan. THIS DOCUMENT HAS BEEN ELECTRONICALLY SIGNED BY GERARDO ARREDONDO MD CT C SPINE WO CONTRAST Result Date: 11/23/2024 IMPRESSION: 1. No acute bony abnormality. Degenerative changes of the cervical spine. If symptoms persist, consider further evaluation with MRI, if there are no contraindications to obtaining a MRI scan. 2. Asymmetric appearance of the piriform sinuses with relative effacement of the left side. Underlying mucosal lesion cannot be excluded. Recommend correlation with direct visualization. I have reviewed the following Diagnostic Tests and noted significant findings as follows: TTE w/o bubble study 11/07/2019: No information available for AVR The examination is adequate to evaluate the referral indication. The qualitative LV ejection fraction is 55-59% (normal). The left ventricular cavity size is normal. The LV wall thickness is mildly increased (concentric). The left ventricular wall motion is normal by limited analysis. All left ventricular segments are not visualized. The left atrium is mildly enlarged. The left ventricular diastolic function is mildly abnormal (grade I). S/P AVR [facility] [facility] mechanical 03/1999. Borderline increase in the gradient peak 31 mm Hg and mean 20 mm Hg. Grossly functiong normaly Significant aortic valve prosthesis regurgitation is absent. There is no previous study available for comparison. TTE with bubble study 11/25/2024: EF 50-54%, moderate sized apical wall motion abnormality with hypokinesis to akinesis. Aortic root and proximal ascending aorta severely enlarged. Aortic valve mechanical prostehesis present. Severe AV prosthesis stenosis. LA severely enlarged. Negative bubble study, no AD or PFO seen. The aortic root and proximal ascending aorta are severely enlarged EKG 11/24/2024: Normal sinus rhythm LTM EEG 11/25/2024: Summary of Findings: This EEG is abnormal Continuous slow, generalized lateralized left hemisphere Diagnostic Significance: This EEG is suggestive of cortical dysfunction in the left hemisphere region. No EEG seizures or epileptiform discharges were recorded. LABS: Labs reviewed as indicated below: IMPRESSION: Mr. 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 He presented to [facility] ED with aphasia following a fall and head injury. CTA H/N showed a left M1 sub-occlusive thrombus and P1 cut-off. The patient was not a TNK candidate given his LKW. He was an endovascular candidate and was transferred [place] [facility] s/p left M1 TICI3 with an initial NIHSS of 20. MRI Brain on 11/26/2024 confirmed an acute left MCA territory stroke, with a moderate-sized infarct in the left temporal lobe and smaller infarcts in the left frontallobe. Cardioembolic etiology is suspected in the setting of mechanical aortic valve replacement (despite Eliquis therapy), with TTE also showing severe aortic stenosis. Regarding secondary stroke prevention, the patient was started on warfarin therapy on 11/29/2024 with a plan to bridge with heparin, given the etiology is most likely cardioembolic from mechanical aortic valve replacement despite Eliquis therapy. Cardiothoracic surgery plans to do a transesophageal echocardiogram on 11/30/2024 to further evaluate surgical candidacy. Additionally, the hospital course was complicated by a hematoma from the patient's endovascular intervention. A repeat duplex scan on 11/28/2024 excluded a pseudoaneurysm or AV fistula. RECOMMENDATIONS/PLAN: Left M1 sub-occlusive thrombus Acute L MCA Territory Strokes - STAT CT head for any changes in neuro exam. -on IV heparin drip cardiac nomogram currently due to the presence of mechanical valve - warfarin therapy initiated on 11/29/2024 - Telemetry to assess for cardiac arrhythmias - Goal SBP < 160 - Continue atorvastatin 40 mg for goal LDL < 70. - Manage blood glucose for goal HbA1C < 7.0%. - PT, OT, speech therapy Chronic Issues: HTN - Amlodipine 5 mg daily (SPRING MACHINE OPERATOR 10 mg, reduced per cardiology's advice), Metoprolol 12.5 twice daily (SPRING MACHINE OPERATOR 25 mg [id number] reduced to taper beta johnathon of in the setting of severe per Cardiology advice). Resumed SPRING MACHINE OPERATOR benazepril 20 mg once a day HLD - Atorvastatin 40 mg daily DMT2 - MDSSI BPH - Tamsulosin 0.4 mg Mood - Venlafaxine 75 mg S/p Mechanical aortic valve replacement ([facility] [place], 03/1999, valve size unknown) Severe prosthetic aortic valve stenosis CT surgery consulted to evaluate for mechanical valve dysfunction/thrombosis and aortic root aneurysm for additional workup/combined intervention. LI tentatively scheduled on 11/30/2024 Stroke Checklist: DVT Prophylaxis: receiving mechanical, but chemical contraindicated, reason: Therapeutic anticoagulation Antithrombotic Therapy: receiving antiplatelet or anticoagulation Atrial Fibrillation or Flutter: no Statin: receiving - high intensity Stroke Education: could not be provided due to: patient has aphasia Rehab Therapy Plan: O.T., P.T., Speech, and likely inpatient rehab Patient Has Decision Making Capacity: no, reason: Aphasia Code Status: Full Code Patient discussed and examined with Dr. Miki Jimenez PGY- 2 Neurology Cosigned by Rika Livingston MD at 11/29/2024 4:42 PM EDT Associated attestation - Rika Livingston MD - 11/29/2024 4:42 PM EDT I saw and evaluated the patient today. I have reviewed the resident/fellow physician note and agree. * Tad Raymond MD - 11/28/2024 11:42 AM EDT Physical Medicine & Rehabilitation [facility] [address] Name: Tariq Sawant [place] [facility] A463/B Date: 11/28/2024 Time: 11:42 AM Consulting Service: Critical Care Blue Reason for Consultation: Disposition Planning Admission Date: 11/23/2024 Attending Physician/Provider: Osorio Gilmore MD Primary Care Physician/Provider: Tai Bal PA-C Admitting Diagnosis: Principal Problem: Acute ischemic left MCA stroke (HCC) Active Problems: S/P AVR (aortic valve replacement) History of ischemic left MCA stroke Expressive aphasia On continuous oral anticoagulation Pseudoaneurysm following procedure (HCC) Gait abnormality Impaired mobility and ADLs Resolved Problems: Respiratory failure without hypercapnia (HCC) Subjective HPI: Tariq Sawant is a(n) 54 year old male with PMHx left MCA stroke with residual right hemiparesis, BPH, HTN, mitral valve replacement 2020 on Eliquis, HLD presenting for left MCA distal M1 occlusion s/p mechanical thrombectomy. Patient [facility] to [facility] 11/23 via EMS after experiencing fall at home with left head strike while on Eliquis. Upon arrival of EMS he had expressive aphasia and indicating severe headache. 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 NSGY evaluated upon arrival to [facility] noting NIHSS 13 recommending emergent OR for thrombectomy (11/24)with Dr. Blas. No TNK due to LKWT (11/22/24) being out of window. TICI 3 achieved (complete recanalization) of M1. Received 1u PRBC intra-op. Post-op admitted to NSICU intubated and sedated. Vascular surgery (11/24) consulted due to NSGY concerns of arterial injury during thrombectomy; CTA reviewed with communication 11/24 that pseudoaneurysm in right groin without active extravasation anddid not require further intervention. Neurology (11/24) consulted - agreed holding Eliquis after CT CAP showed groin hematoma pending MRI. 11/24 Pt passed SBT and extubated. Therapy noting Bud for transfers, ambulation, and bed mobility however mostly ModA-MaxA for upper body self-care and dressing. 11/25 EEG showed no evidence of seizures. Patient seen and evaluated sitting in bedside recliner in room on 2 L nasal cannula O2 breathing comfortably. Receptive and expressive aphasia noted. No Caceres in place at this time. Increased tone noted in right upper extremity with right ankle and plantar flexion. Spoke with clinical care coordinator who stated that he lives alone, and has 2 neighbors who assisted him prior to admission, however, unlikely jayne able to stay at home with him temporarily. Neighbors had reported that he was able to ride an ATV and garden independently prior to admission. Additionally, deficits may have chronic component to it-unclear at this time. 11/28 Interval history: Patient seen and evaluated laying down on bed in room on room air breathing comfortably. Mixed receptive and expressive aphasia. Able to answer yes/no, I don't know, and some names. Alert and oriented to person and place with prompting. Minimal tone RUE. Patient says he may have someone (Danna - friend) able to help him post-discharge, and would like to go to IRF. Denies abdominal pain. Snoring loudly prior to being woken up for examination. Updated physical exam below. PREVIOUS FUNCTIONAL STATUS: Prior Level of Function Reported by: Patient (11/24/24 135) Ambulation: Ambulatory without device (11/24/24 1353) Grooming: Independent (11/24/24 1353) Bathing: Independent (11/24/24 1353) Dressing: Independent (11/24/24 1353) Feeding: Independent (11/24/24 1353) Toileting: Independent (11/24/24 1353) Meal Prep: Independent (11/24/24 1353) Homemaking: Independent (11/24/24 1353) Shopping: Independent (11/24/24 [facility]) Home Set-up and Support System: Lives with: Alone (11/24/24 142) Assistance available: Yes (11/24/24 142) Dwelling type: Single story home (trailer?) (11/24/24 1423) Entry steps: (unclear) (11/24/24 142) Inside steps: None (11/24/24 142) Bedroom location: 1st floor (11/24/24 1423) Bath location: 1st floor full bath (11/24/24 142) Assistive Devices Used: Devices at home: No device (11/24/24 142) Recent Physical Therapy Assessment: P.T. Bed Mobility Supine-Sit: Minimal Assistance (11/24/24 1423) Transfers Sit-Stand: Minimal Assistance (11/24/24 1423) Stand-Sit: Minimal Assistance (11/24/24 142) Recent Occupational Therapy Assessments: Self Care Feeding: Supervision (Please comment) (11/24/24 [facility]) Grooming: Moderate Assistance (hand hyigene) (11/24/24 135) Toileting: Minimal Assistance (hygiene in stance) (11/24/24 [facility]) Dressing Upper Body: Moderate Assistance (gown change) (11/24/24 [facility]) Lower Body: Maximal Assistance (to don socks) (11/24/24 [facility]) Functional Ambulation Assistive Device: No device (11/24/24 [facility]) Distance in feet:: 5 (+5) (11/24/24 [facility]) Level of Assistance: Minimal Assistance (11/24/24 135) Bed Mobility Supine-Sit: Minimal Assistance (11/24/24 [facility]) OT Transfers Sit-Stand: Minimal Assistance (11/24/24 [facility]) Stand-Sit: Minimal Assistance (11/24/24 [facility]) Toilet: Minimal Assistance (commode) (11/24/24 [facility]) CURRENT LEVEL OF FUNCTION: Weight Bearing Status: Weight bearing as tolerated (11/24/24 [facility]) Bed Mobility: Bed Mobility Supine-Sit: Minimal Assistance (11/24/24 1353) Transfer: OT Transfers Sit-Stand: Minimal Assistance (11/24/24 135) Stand-Sit: Minimal Assistance (11/24/24 [facility]) Toilet: Minimal Assistance (commode) (11/24/24 [facility]) Ambulation: Functional Ambulation Assistive Device: No device (11/24/24 [facility]) Distance in feet:: 5 (+5) (11/24/24 135) Level of Assistance: Minimal Assistance (11/24/24 [facility]) Review of Systems: As per HPI Past Medical History: Diagnosis Date Heart valve replaced by other means Aortic Valve Replacement Sequelae, post-stroke CVA Past Surgical History: Procedure Laterality Date CAROTID (INTERNAL) ARTERY CATHETHER PLACEMENT N/A 11/23/2024 CATHETER PLACEMENT INTERNAL CAROTID ARTERY performed by Peter Blas MD at [facility] AORTIC VALVE, BYPASS WITH PROSTHETIC VALVE Aortic Valve Replacement VERTEBRAL ARTERY CATHETER PLACEMENT N/A 11/23/2024 CATHETER PLACEMENT VERTEBRAL ARTERY, performed by Peter Blas MD at [place] [facility] Social History Tobacco Use Smoking status: Former Smokeless tobacco: Never Tobacco comments: 1.5 ppk/day, quit November 09 Vaping Use Vaping status: Never Used Substance Use Topics Alcohol use: No Family History Problem Relation Name Age of Onset Neurological Disorder Mother brain aneurysm Review of patient's allergies indicates: Allergen Reactions Bee Venom Cephalosporins hives Penicillin G Current Facility-Administered Medications Medication Dose Route Frequency Provider hEParin 1000 UNIT/ML inj 1,400 Units 15 Units/kg (Adjusted) IV Push PRN Jose Vasquez MD hEParin 1000 UNIT/ML inj 2,800 Units 30 Units/kg (Adjusted) IV Push PRN Jose Vasquez MD hEParin 25,000 units in 250 mL (Xa-Cardiac) infusion 0-30 Units/kg/hr (Adjusted) Intravenous Titrate Jose Vasquez MD Metoprolol Tartrate (Lopressor) tab 25 mg 25 mg Oral Q12H Jose Vasquez MD Polyethylene Glycol 3350 (Miralax) oral powder 17 g 1 Packet Oral Daily(AM) Jose Vasquez MD senna-docusate (Senokot-S) 2 Tablet 2 Tablet Oral BID(AM/PM) Jose Vasquez MD amLODIPine (Norvasc) tab 10 mg 10 mg Oral Daily(AM) Jose Vasquez MD atorvaSTATin (Lipitor) tab 40 mg 40 mg Oral Q 1700 Jose Vasquez MD insulin aspart (NovoLOG) inj Subcutaneous With Meals and HS Jose Vasquez MD tamsulosin (Flomax) cap 0.4 mg 0.4 mg Oral HS Jose Vasquez MD venlafaxine XR (Effexor XR) cap 75 mg 75 mg Oral Daily(AM) Jose Vasquez MD Acetaminophen (Tylenol) tab 650 mg 650 mg Oral Q6H PRN Jose Vasquez MD dextrose 50% inj 25 mL 25 mL IV Push PRN Jose Vasquez MD dextrose 50% inj 50 mL 50 mL IV Push PRN Jose Vasquez MD glucagon (Glucagen) inj 1 mg 1 mg Intramuscular PRN Jose Vasquez MD Glucose (Glutose 15) 40 % gel 15 g of glucose 15 g of glucose Oral PRN Jose Vasquez MD Glucose (Glutose 15) 40 % gel 30 g of glucose 30 g of glucose Oral PRN Jose Vasquez MD glucose chew tab 16 g 16 g Oral PRN Jose Vasquez MD sodium chloride 0.9 % flush central line 10 mL 10 mL IV Push Q8H Jose Vasquez MD Facility-Administered Medications Ordered in Other Encounters Medication Dose Route Frequency Provider benzocaine (topical) (Hurricaine) 20 % spray Topical Once Parth Soria DO Objective PHYSICAL EXAM: BP: 114 mmHg/84 mmHg (11/28/24808) Pulse: 86 (11/28/24808) Resp: 20 (11/28/24605) Temp: 37.11 C (11/28/24605) Temp Summary: Temp Min: 37.1 °C (98.8 °F) Max: 37.4 °C (99.3 °F) SpO2: 97 % (11/28/24605) O2 flow rate: 0 L/MIN (11/28/24808) Supplemental O2 Delivery: Room Air, None (11/28/24808) Vital Signs Last 24 Hours: BP Min: 111/78 Max: 139/83 Pulse Av.2 Min: 86 Max: 94 Most Recent Temperature Av.2 C Min: 37.11 C Max: 37.39 C Resp Av Min: 14 Max: 24 General: NAD; resting comfortably Respiratory: nonlabored breathing on room air Skin: warm : No Caceres catheter present Psychiatric: appropriate mood MSK/Extremities: RUE elbow PROM just able to achieve 0 degrees extension 2/2 tone. Unable to achieve neutral supination/pronation position. Neurologic: Mental Status & Orientation: awake, alert, orientation limited 2/2 aphasia - receptive and expressive Cranial Nerves: pupils equal, right facial asymmetry, diminished right shoulder shrug, tongue protrudes midline. Motor: LEFT Shoulder 5/5 | Elbow 5/5 | Wrist 5/5 | Fingers 5/5 RIGHT Shoulder 4-/5 | Elbow 4-*/5 | Wrist 2/5 | Fingers 0/5 LEFT Hip 5/5 | Knee 5/5 | Ankle 5/5 RIGHT 4/5 | Knee 4/5 | ADF 3/5, APF 0/5. Muscle Tone: increased on elbow flexors, wrist and finger flexors Sensory: withdraws all 4 extremities to pain BL UE & LE DATA REVIEW: LABS: Recent Results (from the past 24 hours) GLUCOSE METER, POINT OF CARE Collection Time: 11/27/24 11:55 AM Result Value Ref Range Glucose - POCT 195 (H) 70 - 120 mg/dL CULTURE, BLOOD Collection Time: 11/27/24 4:04 PM Result Value Ref Range Blood Culture Growth No growth to date CULTURE, BLOOD Collection Time: 11/27/24 4:05 PM Result Value Ref Range Blood Culture Growth No growth to date HEPARIN, UNFRACTIONATED Collection Time: 11/27/24 4:51 PM Result Value Ref Range Heparin, Unfractionated 0.34 (H) <0.10 IU/mL GLUCOSE METER, POINT OF CARE Collection Time: 11/27/24 4:59 PM Result Value Ref Range Glucose - POCT 132 (H) 70 - 120 mg/dL GLUCOSE METER, POINT OF CARE Collection Time: 11/27/24 9:10 PM Result Value Ref Range Glucose - POCT 241 (H) 70 - 120 mg/dL PHOSPHORUS Collection Time: 11/28/24 5:51 AM Result Value Ref Range Phosphorus 3.5 2.5 - 4.8 mg/dL MAGNESIUM Collection Time: 11/28/24 5:51 AM Result Value Ref Range Magnesium 1.8 1.5 - 2.6 mg/dL BASIC METABOLIC PANEL Collection Time: 11/28/24 5:51 AM Result Value Ref Range BUN 13 6 - 20 mg/dL CREATININE 1.1 0.6 - 1.2 mg/dL EGFR 84 >=60 mL/min SODIUM 139 135 - 146 mmol/L POTASSIUM 4.0 3.5 - 5.1 mmol/L CHLORIDE 103 98 - 107 mmol/L CO2 26 22 - 32 mmol/L ANION GAP 10 7 - 15 mmol/L GLUCOSE 183 (H) 70 - 120 mg/dL CALCIUM 8.4 8.4 - 10.2 mg/dL CBC Collection Time: 11/28/24 5:51 AM Result Value Ref Range WBC 8.00 4.00 - 10.80 K/uL RBC 3.43 4.50 - 5.25 M/uL HGB 10.3 (L) 14.0 - 16.8 g/dL HCT 31.2 (L) 40.0 - 48.4 % MCV 91.0 82.0 - 99.5 fL MCH 30.0 27.0 - 34.0 pg MCHC 33.0 32.0 - 36.0 g/dL RDW 14.3 11.5 - 15.5 % PLT 176 140 - 400 K/uL MPV 11.8 6.6 - 11.1 fL nRBCs 0 <=0 /100 WBCs PT INR Collection Time: 11/28/24 5:51 AM Result Value Ref Range Prothrombin Time 12.0 11.6 - 15.2 seconds INR 0.9 0.8 - 1.2 HEPARIN, UNFRACTIONATED Collection Time: 11/28/24 5:51 AM Result Value Ref Range Heparin, Unfractionated 0.20 (H) <0.10 IU/mL HEPARIN, UNFRACTIONATED Collection Time: 11/28/24 7:43 AM Result Value Ref Range Heparin, Unfractionated 0.67 (H) <0.10 IU/mL GLUCOSE METER, POINT OF CARE Collection Time: 11/28/24 7:58 AM Result Value Ref Range Glucose - POCT 133 (H) 70 - 120 mg/dL ASSESSMENT: Principal Problem: Acute ischemic left MCA stroke (HCC) (POA: Yes) Active Problems: S/P AVR (aortic valve replacement) (POA: Yes) History of ischemic left MCA stroke (POA: Yes) Expressive aphasia (POA: Yes) On continuous oral anticoagulation (POA: Yes) Pseudoaneurysm following procedure (HCC) (POA: Clinically Undetermined) Gait abnormality (POA: Yes) Impaired mobility and ADLs (POA: Yes) POA = Present On Admission Tariq Sawant is a(n) 54 year old male PMHx CVA 2004 with residual right hemiparesis who presents with mobility and ADL deficits secondary to acute left MCA stroke s/p mechanical thrombectomy (11/24/24 w/ Dr. Blas). Patient would benefit and be appropriate for an IRF admission. 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 Per CM, it is very unlikely the neighbors would be willing to stay over with Tariq or having Tariq stay with them. The transition from supervision to independent assistance levels can be challenging for some patients, and there is a chance the patient would need to eventually discharge to a SNF after IRF depending on his progress. It would be encouraged that his neighbors have verbal communication or visit him near daily upon initially returning home. At this time he is on no medications to address his underlying tone, which may help imp rove his function. It will be highly recommended that the patient follows up with PM&R outpatient to address his right upper and lower extremity spasticity. PLAN: Disposition Recommendation: Other - Likely IRF (> SNF) Medical Complexity: Patient does require physician oversight at least 3 times per week. Patient does require 24/7 registered nursing care. Patient does require at least 2 therapeutic disciplines of PT, OT, and/or ADVANCED MANUFACTURING CONSULTANT services for at least3 hours per day, 5 days per week in order to maximize functional independence in the safest manner. Patient is expected to achieve individualized functional improvement goals within the following reasonable timeframe - 2 Weeks. There is may be a reasonable expectation patient will discharge to the community post-acute rehabilitation admission. Patient is expected to be able to follow commands, tolerate, actively & willingly participate at least 3 hours of therapy per day for at least 5 days per week in their current clinical condition. Patient's Insurance: [employer] PPO Recommend Addressing Prior to Discharge: Consider ordering post-void residual scans q8H x1 day given risk of urinary retention 2/2 neurogenic bladder. If no contraindications, consider initiating baclofen 10mg QHS; titrating up to TID as tolerated for RUE and RLE spasticity as a starting dose. Highly recommend patient follows up with outpatient PM&R for spasticity management - please include in DC summary to PCP. 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 Please contact service via [employer] Role for further questions or concerns: PMRRESIDENTCONSULTS Patient discussed with the attending physician Dr. Pravin MD. Cosigned by Mason Costello MD at 11/28/2024 10:58 PM EDT Associated attestation - Mason Costello MD - 11/28/2024 10:58 PM EDT I saw and evaluated the patient today. I have reviewed the resident/fellow physician note and agree. * Jose Vasquez MD - 11/28/2024 11:31 AM EDT TRANSFER NOTE - Stroke / Vascular Neurology [facility] [address] Name: Tariq Sawant [place] [facility] [id number] Date: 11/28/2024 Time: 11:50 AM SUBJECTIVE: Tariq Sawant is a 54 year old patient initially seen for acute onset aphasia and fall, found to have L M1 sub-occlusive thrombus and P1 cut-off s/p L M1 thrombectomy with TICI 3 reperfusion. Initial NIHSS 20. Changes since last visit: Overnight: No acute events. Vital signs stable. Patient alert and can follow simple commands. Answers questions appropriately but communication is limited by expressive aphasia. Pertinent past medical history: Past Medical History: Diagnosis Date Heart valve replaced by other means Aortic Valve Replacement Sequelae, post-stroke CVA Pertinent past social history: Social History Tobacco Use Smoking status: Former Smokeless tobacco: Never Tobacco comments: 1.5 ppk/day, quit November 09 Vaping Use Vaping status: Never Used Substance Use Topics Alcohol use: No Drug use: Not on file Current Medications: Note that completed medications (per the MAR) continue to display for 24 hours. Ordered medicationsto be given in the future also display. Current Facility-Administered Medications Medication Dose Route Frequency Provider hEParin 1000 UNIT/ML inj 1,400 Units 15 Units/kg (Adjusted) IV Push PRN Jose Vasquez MD hEParin 1000 UNIT/ML inj 2,800 Units 30 Units/kg (Adjusted) IV Push PRN Jose Vasquez MD hEParin 25,000 units in 250 mL (Xa-Cardiac) infusion 0-30 Units/kg/hr (Adjusted) Intravenous Titrate Jose Vasquez MD Metoprolol Tartrate (Lopressor) tab 25 mg 25 mg Oral Q12H Jose Vasquez MD Polyethylene Glycol 3350 (Miralax) oral powder 17 g 1 Packet Oral Daily(AM) Jose Vasquez MD senna-docusate (Senokot-S) 2 Tablet 2 Tablet Oral BID(AM/PM) Jose Vasquez MD amLODIPine (Norvasc) tab 10 mg 10 mg Oral Daily(AM) Jose Vasquez MD atorvaSTATin (Lipitor) tab 40 mg 40 mg Oral Q 1700 Jose Vasquez MD insulin aspart (NovoLOG) inj Subcutaneous With Meals and HS Jose Vasquez MD tamsulosin (Flomax) cap 0.4 mg 0.4 mg Oral HS Jose Vasquez MD venlafaxine XR (Effexor XR) cap 75 mg 75 mg Oral Daily(AM) Jose Vasquez MD Acetaminophen (Tylenol) tab 650 mg 650 mg Oral Q6H PRN Jose Vasquez MD dextrose 50% inj 25 mL 25 mL IV Push PRN Jose Vasquez MD dextrose 50% inj 50 mL 50 mL IV Push PRN Jose Vasquez MD glucagon (Glucagen) inj 1 mg 1 mg Intramuscular PRN Jose Vasquez MD Glucose (Glutose 15) 40 % gel 15 g of glucose 15 g of glucose Oral PRN Jose Vasquez MD Glucose (Glutose 15) 40 % gel 30 g of glucose 30 g of glucose Oral PRN Jose Vasquez MD glucose chew tab 16 g 16 g Oral PRN Jose Vasquez MD sodium chloride 0.9 % flush central line 10 mL 10 mL IV Push Q8H Jose Vasquez MD Facility-Administered Medications Ordered in Other Encounters Medication Dose Route Frequency Provider benzocaine (topical) (Hurricaine) 20 % spray Topical Once Parth Soria DO OBJECTIVE: Physical Examination: Most Recent Vital Signs: BP: 114 mmHg/84 mmHg (11/28/24 08) Pulse: 86 (11/28/24 08) Resp: 20 (11/28/24605) Temp: 37.11 C (11/28/24605) Temp Summary: Temp Min: 37.1 °C (98.8 °F) Max: 37.4 °C (99.3 °F) SpO2: 97 % (11/28/24605) O2 flow rate: 0 L/MIN (11/28/24 08) Supplemental O2 Delivery: Room Air, None (11/28/24808) Weight: 122.6 kg (270 lb 4.8 oz) (11/28/24 0820) Height: 175.3 cm (5' 9.02") (11/24/24 1402) Body mass index is 39.9 kg/m². Vital Signs Last 24 Hours: Systolic BP: Most Recent Systolic BP Av.6 mmHg Min: 111 mmHg Max: 139 mmHg Temperature: Most Recent Temperature Av.2 C Min: 37.11 C Max: 37.39 C Pulse: Pulse Av.2 Min: 86 Max: 94 Respirations: Resp Av Min: 14 Max: 24 SpO2: SpO2 Av.3 % Min: 92 % Max: 99 % General Examination: Constitutional: Appearance no deformities, well groomed Head/face, ears, nose, throat: normocephalic, atraumatic Psychiatric: Normal mood, and normal affect Neurologic Examination: Mental Status and Orientation: awake, alert, oriented to self and month, not oriented to place. Memory: Diminished Attention: normal Knowledge:Diminished Language: Mixed expressive > receptive aphasia. Speech: No dysarthria Cranial Nerves: CN 2 - no visual defect on confrontation and pupils round, equal, reactive to light CN 3, 4, 6 - extra-ocular movements intact and no nystagmus CN 5 - facial sensation intact V1-3 CN 7 - no facial droop CN 8 - intact hearing CN 9, 10 - palate symmetric, uvula midline, no deviation CN 11 - shoulder shrug intact on the right CN 12 - tongue protrudes midline Sensory: decreased sensation to light touch throughout the right side. Coordination: intact with finger to nose testing on the left. States he cannot perform this on the R Gait: deferred due to fall risk Muscle Tone: Increased throughout the right side Muscle exam: Muscle bulk intact Can lift all 4 extremities anti-gravity for 5-10 seconds without drift; however, does grunt and appear physically strained when lifting right upper and lower extremities. Arm Right Left Leg Right Left Deltoid 4+/5 5/5 Iliopsoas 5/5 5/5 Biceps 5/5 5/5 Quads 5/5 5/5 Triceps 5/5 5/5 Hamstrings 5/5 5/5 Wrist Extension 1/5 5/5 Ankle Dorsi Flexion 3/5 5/5 Ankle Plantar Flexion 3/5 5/5 Dorsal Interossei 2/5 5/5 Abductor Pollicis Brevis 2/5 5/5 Reflexes: Brachioradialis Biceps Patellar Achilles Right 3+ 3+ 3+ 2+ Left 2+ 2+ 2+ 2+ [employer] Stroke Scale: 1A. LOC: 0 1B. Question: 1 1C. Commands: 1 2. Gaze: 0 3. Visual Srivastava: 0 4. Facial Palsy: 0 5A. Arm Left: 0 5B. Arm Right: 0 6A. Leg Left: 0 6B. Leg Right: 0 7. Ataxia: 0 8. Sensory: 0 9. Aphasia: 2 10. Dysarthria: 0 11. Extinction: 0 Total: 4 I have reviewed Radiologic Studies and noted significant findings as follows: MRI on 11/25/24 : 1. Small acute left MCA infarct. No acute hemorrhagic transformation or herniation. 2. Additional small to moderate chronic left MCA territory infarct. Other chronic scattered supratentorial and infratentorial multi territorial infarcts. 3. Recommend short interval non-contrast CT head follow-up. CTA HEAD/CTA NECK Addendum Date: 11/23/2024 THIS REPORT CONTAINS FINDINGS THAT MAY BE CRITICAL TO PATIENT CARE. The findings were verbally communicated via telephone conference with ROSITA Sams at 8:52 PM EDT on 11/23/2024. The findings were acknowledged and understood. THIS DOCUMENT HAS BEEN ELECTRONICALLY SIGNED BY PARTH HIGGINS MD Result Date: 11/23/2024 IMPRESSION: 1. There is a short segment near occlusion of the distal most aspect of M1 segment leftmiddle cerebral artery with some preserved filling of the attenuated appearing M2 branching distal to this. Uncertain if this is related to the old infarction, or if there is a new thrombus here. 2. There is abrupt occlusion just past the origin left posterior cerebral artery with minimal filling peripheral to this. XR CHEST 1 VIEW Result Date: 11/23/2024 IMPRESSION: No lobar consolidation, pleural effusion or pulmonary edema. THIS DOCUMENT HAS BEEN ELECTRONICALLY SIGNED BY PARTH HIGGINS MD XR PELVIS 1 VIEW Result Date: 11/23/2024 IMPRESSION: No fracture seen on trauma AP views of the pelvis. THIS DOCUMENT HAS BEEN ELECTRONICALLY SIGNED BY PARTH HIGGINS MD CT CHEST W CONTRAST Result Date: 11/23/2024 IMPRESSION: 1. No lobar consolidation, pleural effusion or pulmonary edema. 2. No acute fracture. No pneumothorax.CT ABD/PELVIS W IV CONTRAST - WO ORAL CONTRAST Result Date: 11/23/2024 IMPRESSION: 1. No lobar consolidation, pleural effusion or pulmonary edema. 2. No acute fracture. No pneumothorax. CT HEAD/BRAIN WO CONTRAST Result Date: 11/23/2024 IMPRESSION: No acute intracranial abnormality. If symptoms persist, consider further evaluation with MRI, if there are no contraindications to obtaining a MRI scan. THIS DOCUMENT HAS BEEN ELECTRONICALLY SIGNED BY GERARDO ARREDONDO MD CT C SPINE WO CONTRAST Result Date: 11/23/2024 IMPRESSION: 1. No acute bony abnormality. Degenerative changes of the cervical spine. If symptoms persist, consider further evaluation with MRI, if there are no contraindications to obtaining a MRI scan. 2. Asymmetric appearance of the piriform sinuses with relative effacement of the left side. Underlying mucosal lesion cannot be excluded. Recommend correlation with direct visualization. THIS DOCUMENT HAS BEEN ELECTRONICALLY SIGNED BY GERARDO ARREDONDO MD I have reviewed the following Diagnostic Tests and noted significant findings as follows: TTE w/o bubble study 11/07/2019: No information available for AVR The examination is adequate to evaluate the referral indication. The qualitative LV ejection fraction is 55-59% (normal). The left ventricular cavity size is normal. The LV wall thickness is mildly increased (concentric). The left ventricular wall motion is normal by limited analysis. All left ventricular segments are not visualized. The left atrium is mildly enlarged. The left ventricular diastolic function is mildly abnormal (grade I). S/P AVR [facility] mechanical 03/1999. Borderline increase in the gradient peak 31 mm Hg and mean 20 mm Hg. Grossly functiong normaly Significant aortic valve prosthesis regurgitation is absent. There is no previous study available for comparison. TTE with bubble study 11/25/2024: EF 50-54%, moderate sized apical wall motion abnormality with hypokinesis to akinesis. Aortic root and proximal ascending aorta severely enlarged. Aortic valve mechanical prostehesis present. Severe AV prosthesis stenosis. LA severely enlarged. Negative bubble study, no AD or PFO seen. The aortic root and proximal ascending aorta are severely enlarged EKG 11/24/2024: Normal sinus rhythm LTM EEG 11/25/2024: Summary of Findings: This EEG is abnormal Continuous slow, generalized lateralized left hemisphere Diagnostic Significance: This EEG is suggestive of cortical dysfunction in the left hemisphere region. No EEG seizures or epileptiform discharges were recorded. 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 CTA H/N showed LM1 sub-occlusive thrombus and P1 cut-off. Patient was not a TNK candidate given his LKW. He was an endovascular candidate for which he was [place] [facility] s/p L M1 TICI3 with initial NIHSS of 20.MRI Brain 11/26/2024 confirms acute L MCA territory stroke, with moderate sized infarct in the L temporal lobe and smaller infarcts in the L frontal lobe. Suspect cardioembolic etiology in the settingof mechanical aortic valve replacement (despite Eliquis therapy) with TTE also showing severe aortic stenosis . In regards to secondary stroke prevention, would like to initiate patient on Warfarin given mechanical valve and Eliquis failure. In regards to the timing of initiating AC; would typically wait for 7days (November 29) before starting Warfarin given stroke burden seen on MRI. However, there is more complexity to the decision due to the presence TTE findings (severe in addition to severely enlarged aortic root and proximal ascending aorta), for which cardiothoracic surgery has been consulted. Will undergo further evaluation with LI today. Low suspicion for endocarditis as blood cultures are negative and patient is afebrile. In the interim, will continue patient on Heparin cardiac nomogram Additionally, hospital course complicated by hematoma from patient's endovascular intervention. Vascular surgery is following, and there is some concern for a pseudoaneurysm. Vascular team planning to repeat duplex today to assess for this. RECOMMENDATIONS/PLAN: Left M1 sub-occlusive thrombus Acute L MCA Territory Strokes - STAT CT head for any changes in neuro exam. -on IV heparin drip cardiac nomogram currently due to the presence of mechanical valve Plan to start anticoagulation on November 29, 7 days from patient's stroke. Will ultimately need to be on Warfarin (given mechanical valve); however, will not start Warfarin until cleared by Vascular Surgery (given the presence of hematoma and concern for pseudoaneurysm) and until decision from Cardiothoracic Surgery has been made regarding possible Aortic Valve intervention. Planing on repeat doppler today, 11/28. - Telemetry to assess for cardiac arrhythmias - Goal SBP < 160 - Continue atorvastatin 40 mg for goal LDL < 70. - Manage blood glucose for goal HbA1C < 7.0%. - PT, OT, speech therapy Chronic Issues: HTN - Amlodipine 10 mg daily, Metoprolol 25 mg Q12H HLD - Atorvastatin 40 mg daily DMT2 - MDSSI BPH - Tamsulosin 0.4 mg Mood - Venlafaxine 75 mg S/p Mechanical aortic valve replacement ([facility], 03/1999, valve size unknown) Severe prosthetic aortic valve stenosis TTE(11/25/24) shows severe prosthetic aortic valve stenosis: peak velocity 4.5 m/s, mean gradient 47mmHg. There is no significant prosthetic regurgitation. LVEF is preserved (50-54%), with moderate-sized apical wall motion abnormality. Severely dilated left atrium. Imaging also shows severely enlarged ascending aorta measuring 5.4 cm and aortic root 5.1 cm. No pericardial effusion. Bubble study negative. CT surgery consulted to evaluate for mechanical valve dysfunction/thrombosis and aortic root aneurysm for additional workup/combined intervention. Stroke Checklist: DVT Prophylaxis: on therapeutic anticoagulation Antithrombotic Therapy: likely cardioembolic stroke, not indicated based on available history Atrial Fibrillation or Flutter: as soon as cleared by vascular Statin: receiving - high intensity Stroke Education: personal risk factors for stroke could not be provided due to: patient has aphasia Rehab Therapy Plan: O.T., P.T., and Speech Patient Has Decision Making Capacity: no, reason: aphasia Code Status: Full Code The patient was examined and was discussed with Dr. Livingston. Cosigned by Rika Livingston MD at 11/29/2024 8:47 AM EDT Associated attestation - Rika Livingston MD - 11/29/2024 8:47 AM EDT I saw and evaluated the patient 3/31. I have reviewed the resident/fellow physician note and agree. * Luis Alfredo Hutchins, DO - 11/26/2024 8:17 AM EDT CCM - PROGRESS NOTE [address] [address] Name: Tariq Sawant Location: [address] Care during the described time interval was provided by me. I have reviewed this patient's available data, including medical history, events of note, physical examination and test results, and have overseen the activities of other members of the care team under my direct supervision (e.g. house officers, physician assistants, nurse practitioners). PATIENT DESCRIPTION: Patient is a 54 year old male who presented to [facility] ed after a fall with new onset L sided hemiparesis (note he already had a previous stroke with spastic R hemiparesis). He was emergently brought [place] [facility] [place] for thrombectomy. There was intraoperative concern for a RP hematoma or vascular injury and vascular consulted. Brought to the ICU post procedure intubated and sedated. There was also concern that he might have had a seizure and was started on LTM. Procedure: 11/24 (~01:00) - mechanical thrombectomy and 3 vessel cerebral angiogram HPI/EVENTS OF NOTE: extubated later 11/24. Doing well, bp controlled and up in a chair. CONSTITUTIONAL DATA: BP: 136 mmHg/88 mmHg (11/26/24599) Pulse: 103 (11/26/24599) Resp: 21 (11/26/24599) Temp: 37.61 C (11/26/24599) Temp Summary: Temp Min: 36.3 °C (97.3 °F) Max: 37.8 °C (100 °F) SpO2: 97 % (11/26/24599) O2 flow rate: 2 L/MIN (11/26/24599) Supplemental O2 Delivery: Nasal Cannula (11/26/24599) PHYSICAL EXAM: Constitutional: no acute distress CV: normal rate and rhythm, no murmur, gallops or rub Chest: breath sounds normal Abdomen: soft Extremities: no clubbing, cyanosis, or edema, otherwise grossly normal, warm, and dry LABORATORY VALUES: reviewed RADIOGRAPHIC STUDIES: nothing new Principal Problem: Acute ischemic left MCA stroke (HCC) (POA: Yes) - s/p mechanical thrombectomy. Suspect cardioembolic. If he was taking his prescribed elequis then this represents failure of therapy. Stroke neurologyrecommending change to VKA for next stroke prophylaxis, so will start that rajan. However, he still has an unresolved possible vascular issue, so it seems prudent to start him on UFH nomogram. Will goslow to minimize risk of over AC, no bolus protocol. Active Problems: H/O mitral valve replacement with mechanical valve (POA: Yes) History of ischemic left MCA stroke (POA: Yes) On continuous oral anticoagulation (POA: Yes) - see above Pseudoaneurysm following procedure (HCC) (POA: Clinically Undetermined) - still sounds like this isuncertain. Repeating a US study early next week. POA = Present On Admission GLOBAL ISSUES: Disposition: transfer to floor Patient's decisional capacity: has capacity to make decisions I have provided follow-up hospital care services for this patient on the date referenced above. Time devoted to patient care services described in this note equal: 18 minutes [id number] and 23 minutes total evaluation time. * Jose Vasquez MD - 11/26/2024 7:52 AM EDT TRANSFER NOTE - Stroke / Vascular Neurology [facility] [id number] Name: Tariq Sawant [place] [facility] A443/A Date: 11/26/2024 Time: 7:52 AM SUBJECTIVE: Tariq Sawant is a 54 year old patient initially seen for acute onset aphasia and fall, found to have L M1 sub-occlusive thrombus and P1 cut-off s/p L M1 thrombectomy with TICI 3 reperfusion. Initial NIHSS 20. Changes since last visit: Overnight: No acute events. Vital signs stable Patient seen and evaluated at bedside this morning. Alert and answering questions appropriately butlimited responses due to expressive aphasia. Endorses no new neurologic symptoms at this time. Stable for transfer to the floor. Pertinent past medical history: Past Medical History: Diagnosis Date Heart valve replaced by other means Aortic Valve Replacement Sequelae, post-stroke CVA Pertinent past social history: Social History Tobacco Use Smoking status: Former Smokeless tobacco: Never Tobacco comments: 1.5 ppk/day, quit November 09 Vaping Use Vaping status: Never Used Substance Use Topics Alcohol use: No Drug use: Not on file Current Medications: Note that completed medications (per the MAR) continue to display for 24 hours. Ordered medicationsto be given in the future also display. Current Facility-Administered Medications Medication Dose Route Frequency Provider magnesium sulfate in [facility] iv piggyback 4,000 mg 4,000 mg IV Piggyback Once Shanna Lopes DO Metoprolol Tartrate (Lopressor) tab 25 mg 25 mg Oral Q12H Shanna Lopes DO Polyethylene Glycol 3350 (Miralax) oral powder 17 g 1 Packet Oral Daily(AM) Shanna Lopes DO potassium chloride ER tab 40 mEq 40 mEq Oral Once Shanna Lopes DO senna-docusate (Senokot-S) 2 Tablet 2 Tablet Oral BID(AM/PM) Shanna Lopes DO amLODIPine (Norvasc) tab 10 mg 10 mg Oral Daily(AM) Esther Espinal MD atorvaSTATin (Lipitor) tab 40 mg 40 mg Oral Q 1700 Osorio Gilmore MD insulin aspart (NovoLOG) inj Subcutaneous With Meals and Esther Espinal MD labetalol (Trandate) inj 10 mg 10 mg Intravenous Q1H PRN Jaida Leger CRNP tamsulosin (Flomax) cap 0.4 mg 0.4 mg Oral HS Esther Espinal MD venlafaxine XR (Effexor XR) cap 75 mg 75 mg Oral Daily(AM) Sergey Silva DO Acetaminophen (Tylenol) tab 650 mg 650 mg Oral Q6H PRN Esther Espinal MD chlorHEXIDINE (Periogard) 0.12 % oral rinse 15 mL 15 mL Oral mucosal membrane BID (0800,1999) Jaida Leger CRNP dextrose 50% inj 25 mL 25 mL IV Push PRN Shanna Lopes DO dextrose 50% inj 50 mL 50 mL IV Push PRN Lopes, Shanna, DO glucagon (Glucagen) inj 1 mg 1 mg Intramuscular PRN Lopes, Shanna, DO Glucose (Glutose 15) 40 % gel 15 g of glucose 15 g of glucose Oral PRN Lopes, Shanna, DO Glucose (Glutose 15) 40 % gel 30 g of glucose 30 g of glucose Oral PRN Lopes, Shanna, DO glucose chew tab 16 g 16 g Oral PRN Lopes, Shanna, DO Oral Hygiene: Mouth Swab with dentifrice Oral Q4H Limited (00;04;12;16) Jaida Leger CRNP oxygen GAS Inhalation Oxygen Jaida Leger CRNP chlorhexidine gluconate cloth 2 % pad External Daily 1000 Suman Wilson MD sodium chloride 0.9 % flush central line 10 mL 10 mL IV Push Q8H Suman Wilson MD OBJECTIVE: Physical Examination: Most Recent Vital Signs: BP: 136 mmHg/88 mmHg (11/26/24599) Pulse: 103 (11/26/24599) Resp: 21 (11/26/24599) Temp: 37.61 C (11/26/24599) Temp Summary: Temp Min: 36.3 °C (97.3 °F) Max: 37.9 °C (100.2 °F) SpO2: 97 % (11/26/24599) O2 flow rate: 2 L/MIN (11/26/24599) Supplemental O2 Delivery: Nasal Cannula (11/26/24599) Weight: 123.8 kg (272 lb 14.9 oz) (11/26/24599) Height: 175.3 cm (5' 9.02") (11/24/24 1402) Body mass index is 40.29 kg/m². Vital Signs Last 24 Hours: Systolic BP: Most Recent Systolic BP Av.2 mmHg Min: 122 mmHg Max: 174 mmHg Temperature: Most Recent Temperature Av.4 C Min: 36.28 C Max: 37.89 C Pulse: Pulse Av.4 Min: 82 Max: 106 Respirations: Resp Av Min: 15 Max: 45 SpO2: SpO2 Av.4 % Min: 91 % Max: 99 % General Examination: Constitutional: Appearance no deformities, well groomed Head/face, ears, nose, throat: normocephalic, atraumatic Psychiatric: Normal mood, and normal affect Neurologic Examination: Mental Status and Orientation: awake, alert, oriented to self. No Memory: Diminished Attention: normal Knowledge:Diminished Language: Mixed expressive > receptive aphasia. Speech: Mild dysarthria Cranial Nerves: CN 2 - no visual defect on confrontation and pupils round, equal, reactive to light CN 3, 4, 6 - extra-ocular movements intact and no nystagmus CN 5 - facial sensation intact V1-3 CN 7 - R facial droop CN 8 - intact hearing CN 9, 10 - palate symmetric, uvula midline, no deviation CN 11 - shoulder shrug intact on the right CN 12 - tongue protrudes midline Sensory: decreased sensation to light touch throughout the right side. Coordination: intact with finger to nose testing on the left. States he cannot perform this on the R Gait: deferred due to fall risk Muscle Tone: Increased throughout the right side Muscle exam: Muscle bulk intact Can lift all 4 extremities anti-gravity for 5-10 seconds without drift; however, does grunt and appear physically strained when lifting right upper and lower extremities. Reflexes: Brachioradialis Biceps Patellar Achilles Right 3+ 3+ 3+ 2+ Left 2+ 2+ 2+ 2+ [employer] Stroke Scale: 1A. LOC: 0 1B. Question: 1 1C. Commands: 1 2. Gaze: 0 3. Visual Srivastava: 0 4. Facial Palsy: 1 5A. Arm Left: 0 5B. Arm Right: 0 6A. Leg Left: 0 6B. Leg Right: 0 7. Ataxia: untestable 8. Sensory: 1 9. Aphasia: 1 10. Dysarthria: 1 11. Extinction: 1 Total: 7 Personal Review and Interpretation of New Neuroimaging: MRI Brain 11/25/2024: Acute to subacute L MCA territory strokes, several infarcts. No evidence of hemorrhagic conversion I have reviewed Radiologic Studies and noted significant findings as follows: CTA HEAD/CTA NECK Addendum Date: 11/23/2024 THIS REPORT CONTAINS FINDINGS THAT MAY BE CRITICAL TO PATIENT CARE. The findings were verbally communicated via telephone conference with ROSITA Sams at 8:52 PM EDT on 11/23/2024. The findings were acknowledged and understood. THIS DOCUMENT HAS BEEN ELECTRONICALLY SIGNED BY PARTH HIGGINS MD Result Date: 11/23/2024 IMPRESSION: 1. There is a short segment near occlusion of the distal most aspect of M1 segment leftmiddle cerebral artery with some preserved filling of the attenuated appearing M2 branching distal to this. Uncertain if this is related to the old infarction, or if there is a new thrombus here. 2. There is abrupt occlusion just past the origin left posterior cerebral artery with minimal filling peripheral to this. XR CHEST 1 VIEW Result Date: 11/23/2024 IMPRESSION: No lobar consolidation, pleural effusion or pulmonary edema. THIS DOCUMENT HAS BEEN ELECTRONICALLY SIGNED BY PARTH HIGGINS MD XR PELVIS 1 VIEW Result Date: 11/23/2024 IMPRESSION: No fracture seen on trauma AP views of the pelvis. THIS DOCUMENT HAS BEEN ELECTRONICALLY SIGNED BY PARTH HIGGINS MD CT CHEST W CONTRAST Result Date: 11/23/2024 IMPRESSION: 1. No lobar consolidation, pleural effusion or pulmonary edema. 2. No acute fracture. No pneumothorax.CT ABD/PELVIS W IV CONTRAST - WO ORAL CONTRAST Result Date: 11/23/2024 IMPRESSION: 1. No lobar consolidation, pleural effusion or pulmonary edema. 2. No acute fracture. No pneumothorax. CT HEAD/BRAIN WO CONTRAST Result Date: 11/23/2024 IMPRESSION: No acute intracranial abnormality. If symptoms persist, consider further evaluation with MRI, if there are no contraindications to obtaining a MRI scan. THIS DOCUMENT HAS BEEN ELECTRONICALLY SIGNED BY GERARDO ARREDONDO MD CT C SPINE WO CONTRAST Result Date: 11/23/2024 IMPRESSION: 1. No acute bony abnormality. Degenerative changes of the cervical spine. If symptoms persist, consider further evaluation with MRI, if there are no contraindications to obtaining a MRI scan. 2. Asymmetric appearance of the piriform sinuses with relative effacement of the left side. Underlying mucosal lesion cannot be excluded. Recommend correlation with direct visualization. THIS DOCUMENT HAS BEEN ELECTRONICALLY SIGNED BY GERARDO ARREDONDO MD I have reviewed the following Diagnostic Tests and noted significant findings as follows: TTE w/o bubble study 11/07/2019: No information available for AVR The examination is adequate to evaluate the referral indication. The qualitative LV ejection fraction is 55-59% (normal). The left ventricular cavity size is normal. The LV wall thickness is mildly increased (concentric). The left ventricular wall motion is normal by limited analysis. All left ventricular segments are not visualized. The left atrium is mildly enlarged. The left ventricular diastolic function is mildly abnormal (grade I). S/P AVR [place] mechanical 03/1999. Borderline increase in the gradient peak 31 mm Hg and mean 20 mm Hg. Grossly functiong normaly Significant aortic valve prosthesis regurgitation is absent. There is no previous study available for comparison. TTE with bubble study 11/25/2024: EF 50-54%, moderate sized apical wall motion abnormality with hypokinesis to akinesis. Aortic root and proximal ascending aorta severely enlarged. Aortic valve mechanical prostehesis present. Severe AV prosthesis stenosis. LA severely enlarged. Negative bubble study, no AD or PFO seen. EKG 11/24/2024: Normal sinus rhythm LTM EEG 11/25/2024: Summary of Findings: This EEG is abnormal Continuous slow, generalized lateralized left hemisphere Diagnostic Significance: This EEG is suggestive of cortical dysfunction in the left hemisphere region. No EEG seizures or epileptiform discharges were recorded. LABS: Labs reviewed as indicated below: Latest Reference Range & Units 11/24/24 05:05 Triglycerides <=174 mg/dL 266 (H) Cholesterol <200 mg/dL 181 Non-HDL Cholesterol <=159 mg/dL 129 HDL Cholesterol >39 mg/dL 52 LDL Cholesterol (Direct Measure) <=129 mg/dL 64 (H): Data is abnormally high Latest Reference Range & Units 11/24/24 05:05 Hemoglobin A1C 4.0 - 5.6 % 6.6 (H) (H): Data is abnormally high Latest Reference Range & Units 11/25/24 05:20 SODIUM 135 - 146 mmol/L 139 POTASSIUM 3.5 - 5.1 mmol/L 3.7 CHLORIDE 98 - 107 mmol/L 107 CO2 22 - 32 mmol/L 23 BUN 6 - 20 mg/dL 14 CREATININE 0.6 - 1.2 mg/dL 1.1 EGFR >=60 mL/min 82 ANION GAP 7 - 15 mmol/L 9 GLUCOSE 70 - 120 mg/dL 131 (H) CALCIUM 8.4 - 10.2 mg/dL 7.8 (L) Magnesium 1.5 - 2.6 mg/dL 1.9 Phosphorus 2.5 - 4.8 mg/dL 2.1 (L) (H): Data is abnormally high (L): Data is abnormally low Latest Reference Range & Units 11/25/24 05:20 WBC 4.00 - 10.80 K/uL 8.79 RBC 4.50 - 5.25 M/uL 3.33 HGB 14.0 - 16.8 g/dL 9.9 (L) HCT 40.0 - 48.4 % 29.9 (L) MCV 82.0 - 99.5 fL 89.8 MCH 27.0 - 34.0 pg 29.7 MCHC 32.0 - 36.0 g/dL 33.1 RDW 11.5 - 15.5 % 15.0 PLT 140 - 400 K/uL 116 (L) MPV 6.6 - 11.1 fL 11.6 (L): Data is abnormally low IMPRESSION: Patient is a 54-year old man with 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 CTA H/N showed L M1 sub-occlusive thrombus and P1 cut-off. Patient was not a TNK candidate given his LKW. He was an endovascular candidate for which he was [place] [facility] s/p L M1 TICI3 with initial NIHSS of 20. MRI Brain 11/26/2024 confirms acute L MCA territory stroke, with moderate sized infarct in the L temporal lobe and smaller infarcts in the L frontal lobe. Suspect cardioembolic etiology in the setting of mechanical aortic valve replacement (despite Eliquis therapy). Current NIHSS 7 today, with neurologic ex amination significant for disorientation, R facial droop, R sided motor deficit, R sensory deficit,moderate mixed aphasia with expressive>receptive component, and extinction. In regards to secondary stroke prevention, would like to initiate patient on Warfarin given mechanical valve and Eliquis failure. In regards to the timing of initiating AC; would typically wait for 7days (November 29) before starting Warfarin given stroke burden seen on MRI. However, there is more complexity to the decision due to the presence of known hematoma, which was seemingly a complication of his initial endovascular intervention. Vascular surgery is following, and there is some concern for a pseudoaneurysm. Vascular team planning to repeat duplex on Thursday to assess for this. On November 29, can start AC in the form of therapeutic heparin. Once patient is cleared from a Vascular Surgery standpoint, will be able to transition patient to Warfarin. RECOMMENDATIONS/PLAN: Left M1 sub-occlusive thrombus Acute L MCA Territory Strokes - STAT CT head for any changes in neuro exam. - MRI brain without contrast reviewed. - Holding anticoagulation at this time. - Can start anticoagulation on November 29, 7 days from patient's stroke. Will ultimately need to be on Warfarin (given mechanical valve and Eliquis failure); however, will not start Warfarin until cleared by Vascular Surgery (given the presence of hematoma and concern for pseudoaneurysm). Planing onrepeat doppler on 11/28. In this case, can start AC with therapeutic Heparin dosing, and begin Warfarin once cleared. - Telemetry to assess for cardiac arrhythmias - Goal SBP < 160 - Continue atorvastatin 40 mg for goal LDL < 70. - Manage blood glucose for goal HbA1C < 7.0%. - PT, OT, speech therapy Chronic Issues: HTN - Amlodipine 10 mg daily, Metoprolol 25 mg Q12H HLD - Atorvastatin 40 mg daily DMT2 - MDSSI BPH - Tamsulosin 0.4 mg Mood - Venlafaxine 75 mg Stroke Checklist: DVT Prophylaxis: receiving mechanical, but chemical contraindicated, reason: ischemic stroke Antithrombotic Therapy: please order the following or document a contraindication to: s/p thrombectomy, pending MRI Atrial Fibrillation or Flutter: yes - plan to initiate anticoagulation as follows, pending brain MRI Statin: receiving - high intensity Stroke Education: personal risk factors for stroke could not be provided due to: patient has aphasia Rehab Therapy Plan: O.T., P.T., and Speech Patient Has Decision Making Capacity: no, reason: aphasia Code Status: Full Code The patient was examined and was discussed with Dr. Goodman. Cosigned by Yunier Goodman MD at 11/26/2024 5:11 PM EDT Associated attestation - Yunier Goodman MD - 11/26/2024 5:11 PM EDT I saw and evaluated the patient today. I have reviewed the resident/fellow physician note and agree. * Shanna Lopes DO - 11/26/2024 7:00 AM EDT CCM - PROGRESS NOTE [facility] [id number] Name: Tariq Sawant [place] [facility] A443/A Date: 11/24/2024 Time: 6:59 AM PATIENT DESCRIPTION: Patient is a 54 year old male with PMHx of previous left MCA stroke with residual right sided weakness HTN, dyslipidemia, and mitral valve replacement on eliquis is admitted after being found to have possible subocclusive thrombus at the distal LM1 segment of unclear acuity in addition to abrupt cutoff at the left P1 segment on CTA head. Patient underwent DSA s/p TICI 3 but was complicated with groin bleeding around the sheath in bilateral groins. CTA aortagram intra-op showed No evidence of injury on aortogram shot. CTA abdomen/pelvis showed Hematoma within the right lower abdomen adjacent to the bladder without evidence of active extravasation and 1.5 cm focus of contrast adjacent to the right femoral artery consistent with a pseudoaneurysm. HPI/EVENTS OF NOTE: 11/24: DSA on s/p TICI 3, extubated Was slightly hypoxic yesterday afternoon with some shortness of breath which resolved. Back to 2L nasal cannula. Feels well today, offers no medical complaints at the time of my evaluation. CONSTITUTIONAL DATA: BP: 136 mmHg/88 mmHg (11/26/24599) Pulse: 103 (11/26/24 06) Resp: 21 (11/26/24599) Temp: 37.61 C (11/26/24599) Temp Summary: Temp Min: 36.3 °C (97.3 °F) Max: 37.9 °C (100.2 °F) SpO2: 97 % (11/26/24599) O2 flow rate: 2 L/MIN (11/26/24599) Supplemental O2 Delivery: Nasal Cannula (11/26/24599) PHYSICAL EXAM: Physical Exam Constitutional: Appearance: He is obese. HENT: Head: Normocephalic and atraumatic. Eyes: Extraocular Movements: Extraocular movements intact. Conjunctiva/sclera: Conjunctivae normal. Pupils: Pupils are equal, round, and reactive to light. Cardiovascular: Rate and Rhythm: Normal rate and regular rhythm. Pulses: Intact distal pulses. Heart sounds: Normal heart sounds. Pulmonary: Effort: Pulmonary effort is normal. Breath sounds: No wheezing, rhonchi or rales. Abdominal: General: Abdomen is protuberant. Bowel sounds are normal. Palpations: Abdomen is soft. Tenderness: There is no abdominal tenderness. Skin: General: Skin is warm and dry. Neurological: Mental Status: He is alert and oriented to person, place, and time. Mental status is at baseline. GCS: GCS eye subscore is 4. GCS verbal subscore is 5. GCS motor subscore is 6. Comments: Slight expressive aphasia (chronic) Psychiatric: Behavior: Behavior is cooperative. LABORATORY VALUES: reviewed RADIOGRAPHIC STUDIES: reviewed CTA abdomen/pelvis 11/24/24 1. Hematoma within the right lower abdomen adjacent to the bladder without evidence of active extravasation. 2. Small hematoma adjacent to right femoral access site without evidence of active extravasation. 3. 1.5 cm focus of contrast adjacent to the right femoral artery consistent with a pseudoaneurysm. 4. No splenic hypodensity of the inferior spleen which may represent area of ischemia. CTA head/neck 11/23/24 1. There is a short segment near occlusion of the distal most aspect of M1 segment left middle cerebral artery with some preserved filling of the attenuated appearing M2 branching distal to this. Uncertain if this is related to the old infarction, or if there is a new thrombus here. 2. There is abrupt occlusion just past the origin left posterior cerebral artery with minimal filling peripheral to this. 3. No dissection, aneurysm or stenosis in the extracranial carotid systems or vertebral arteries. Repeat CT head 1. Likely small acute left MCA territory infarct. No hemorrhagic transformation. 2. Consider MRI for further assessment. US Right femoral artery 11/24/24 Right groin duplex with no evidence of pseudoaneurysm or AV fistula. Possible hematoma noted in the region of recent catheterization with a patent branch adjacent to the hematoma. Active Problems: Ischemic stroke (HCC) (POA: Unknown) POA = Present On Admission previous left MCA stroke with residual right sided weakness HTN, dyslipidemia, and mitral valve replacement on eliquis SYSTEM BASED PLAN: NEURO / PSYCH Acute ischemic CVA, Left M1 occlusion s/p mechanical thrombectomy 11/24 with TICI 3 Previous Left MCA CVA with residual right hemiparesis Neurochecks Q4hr Neurology and NeuroSx following Repeat CT head read as above Keep SBP <160 MRI brain findings noted, consistent with known findings TTE with EF 50% & no evidence of PFO or ASD Stroke lab: Lipid panel: Chol 181, TAG 266, HDL 52, LDL 64 HbA1c: 6.6 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 said it was ok not sure why and cannot find any information in MyChart regardingdecision for switching Discussed with patient at length the need for warfarin in setting of mechanical valve, dietary restrictions and need for weekly INR checks, he was amenable to starting Vascular surgery has plans for duplex Thursday so will hold off on starting warfarin Will start a heparin drip in the interim Eventual bride to warfarin with warfarin eduction & discharge instructions Continue SPRING MACHINE OPERATOR statin PULMONARY Intubated for airway protection, extubated 11/24 Keep SpO2 >94% IS and flutter for pulmonary hygiene Respiratory driven protocol GI / HEPATOBILIARY Last BM: SPRING MACHINE OPERATOR Bowel regimen: Docusate-Senna BID + Miralax qD Diet: Regular RENAL/ METABOLIC / FLUIDS No acute issue Monitor I/Os Daily BMP, Mg, PO4 Replace electrolytes PRN D/C IVF ID No acute issue HEME Acute blood loss during DSA, resolved Right lower abdomen hematoma within the right lower abdomen adjacent to the bladder without evidence of active extravasation Small hematoma adjacent to right femoral access site without evidence of active extravasation, stable 1.5 cm focus of contrast adjacent to the right femoral artery consistent with a pseudoaneurysm. Plan for duplex Tuesday 11/28 with vascular surgery to better visualize potential pseudoaneurysm Plan to pause heparin drip at midnight tomorrow night SCDs for DVT ppx Vascular duplex (11/24/24): no pseudoaneurysm seen Repeat Vascular duplex to assess for the pseudoaneurysm as per Vascular Sx. ENDOCRINE No acute issue Keep glucose between 140-180 MDSSI Accuchecks AC &HS Hypoglycemia protocol HbA1C: 6.6 MUSCULOSKELETAL / SKIN No acute issue PT/OT DEVICES Peripheral Line Left Antecubital 18 Gauge (Active) Number of days: 3 Peripheral Line Left Hand 16 Gauge (Active) Number of days: 3 GLOBAL ISSUES: Central Line Necessity Reviewed: Removed 11/25 Caceres: N/A Disposition: transfer to floor Patient's decisional capacity: has capacity to make decisions Communication with Patient/Family: To be discussed. Goals of Care: stabilize hemodynamic status and improve mental status to baseline Case and plan discussed with attending physician, Dr. Luis Alfredo Lopes DO Critical Care Medicine Fellow Cosigned by Luis Alfredo Hutchins DO at 11/27/2024 5:18 PM EDT * Jose Vasquez MD - 11/25/2024 7:45 AM EDT STROKE PROGRESS NOTE - Stroke / Vascular Neurology [facility] [id number] Name: Tariq Sawant [place] [facility] A443/A Date: 11/25/2024 Time: 7:46 AM SUBJECTIVE: Tariq Sawant is a 54 year old patient initially seen for acute onset aphasia and fall, found to have L M1 sub-occlusive thrombus and P1 cut-off s/p L M1 thrombectomy with TICI 3 reperfusion. Initial NIHSS 20. Changes since last visit: Overnight: No acute events. Vital signs stable Patient seen and evaluated at bedside this morning. Extubated and answering questions appropriately; however, communication is limited by mixed expressive > receptive aphasia. It appears that patient's right sided deficits are chronic from prior L MCA stroke; does not endorse worsening of these symptoms. Patient does note that speech changes are new. Pertinent past medical history: Past Medical History: Diagnosis Date Heart valve replaced by other means Aortic Valve Replacement Sequelae, post-stroke CVA Pertinent past social history: Social History Tobacco Use Smoking status: Former Smokeless tobacco: Never Tobacco comments: 1.5 ppk/day, quit November 09 Vaping Use Vaping status: Never Used Substance Use Topics Alcohol use: No Drug use: Not on file Current Medications: Note that completed medications (per the MAR) continue to display for 24 hours. Ordered medicationsto be given in the future also display. Current Facility-Administered Medications Medication Dose Route Frequency Provider amLODIPine (Norvasc) tab 10 mg 10 mg Oral Daily(AM) Esther Espinal MD insulin aspart (NovoLOG) inj Subcutaneous With Meals and HS Esther Espinal MD labetalol (Trandate) inj 10 mg 10 mg Intravenous Q1H PRN Jaida Leger CRNP Acetaminophen (Tylenol) tab 650 mg 650 mg Oral Q6H PRN Esther Espinal MD atorvaSTATin (Lipitor) tab 40 mg 40 mg Oral Gastric Tube Q 1700 Jaida Leger CRNP chlorHEXIDINE (Periogard) 0.12 % oral rinse 15 mL 15 mL Oral mucosal membrane BID (0800,1999) Jaida Leger CRNP dextrose 50% inj 25 mL 25 mL IV Push PRN Lopes, Shanna, DO dextrose 50% inj 50 mL 50 mL IV Push PRN Lopes, Shanna, DO Docusate Sodium (Colace) oral liquid 100 mg 100 mg Oral Gastric Tube BID(AM/PM) Jaida Leger CRNP glucagon (Glucagen) inj 1 mg 1 mg Intramuscular PRN Lopes, Shanna, DO Glucose (Glutose 15) 40 % gel 15 g of glucose 15 g of glucose Oral PRN Lopes, Shanna, DO Glucose (Glutose 15) 40 % gel 30 g of glucose 30 g of glucose Oral PRN Lopes, Shanna, DO glucose chew tab 16 g 16 g Oral PRN Lopes, Shanna, DO Oral Hygiene: Mouth Swab with dentifrice Oral Q4H Limited (00;04;12;16) Jaida Leger CRNP oxygen GAS Inhalation Oxygen Jaida Leger CRNP Sennosides (Senokot) oral syrup 10 mL 10 mL Oral Gastric Tube Daily(AM) Jaida Leger CRNP chlorhexidine gluconate cloth 2 % pad External Daily 1000 Suman Wilson MD sodium chloride 0.9 % flush central line 10 mL 10 mL IV Push Q8H Suman Wilson MD OBJECTIVE: Physical Examination: Most Recent Vital Signs: BP: 141 mmHg/75 mmHg (11/25/24699) Pulse: 90 (11/25/24699) Resp: 18 (11/25/24699) Temp: 37.39 C (11/25/24599) Temp Summary: Temp Min: 37.3 °C (99.1 °F) Max: 38 °C (100.4 °F) SpO2: 98 % (11/25/24699) O2 flow rate: 2 L/MIN (11/25/24 0100) Supplemental O2 Delivery: Room Air, None (11/25/24699) Weight: 126.7 kg (279 lb 5.2 oz) (11/25/24599) Height: 175.3 cm (5' 9.02") (11/24/24 1402) Body mass index is 41.23 kg/m². Vital Signs Last 24 Hours: Systolic BP: Most Recent Systolic BP Av.3 mmHg Min: 126 mmHg Max: 160 mmHg Temperature: Most Recent Temperature Av.6 C Min: 37.28 C Max: 38 C Pulse: Pulse Av Min: 90 Max: 116 Respirations: Resp Av.9 Min: 17 Max: 36 SpO2: SpO2 Av.4 % Min: 90 % Max: 99 % General Examination: Constitutional: Appearance no deformities, well groomed Head/face, ears, nose, throat: normocephalic, atraumatic Psychiatric: Normal mood, and normal affect Neurologic Examination: Mental Status and Orientation: awake, alert, oriented to self. No Memory: Diminished Attention: normal Knowledge:Diminished Language: Mixed expressive > receptive aphasia. Speech: Mild dysarthria Cranial Nerves: CN 2 - no visual defect on confrontation and pupils round, equal, reactive to light CN 3, 4, 6 - extra-ocular movements intact and no nystagmus CN 5 - facial sensation intact V1-3 CN 7 - R facial droop CN 8 - intact hearing CN 9, 10 - palate symmetric, uvula midline, no deviation CN 11 - shoulder shrug intact on the right CN 12 - tongue protrudes midline Sensory: decreased sensation to light touch throughout the right side. Coordination: intact with finger to nose testing on the left. States he cannot perform this on the R Gait: deferred due to fall risk Muscle Tone: Increased throughout the right side Muscle exam: Muscle bulk intact Can lift all 4 extremities anti-gravity for 5-10 seconds without drift; however, does grunt and appear physically strained when lifting right upper and lower extremities. Reflexes: Brachioradialis Biceps Patellar Achilles Right 3+ 3+ 3+ 2+ Left 2+ 2+ 2+ 2+ [employer] Stroke Scale: 1A. LOC: 0 1B. Question: 1 1C. Commands: 1 2. Gaze: 0 3. Visual Srivastava: 0 4. Facial Palsy: 1 5A. Arm Left: 0 5B. Arm Right: 0 6A. Leg Left: 0 6B. Leg Right: 0 7. Ataxia: untestable 8. Sensory: 1 9. Aphasia: 1 10. Dysarthria: 1 11. Extinction: 1 Total: 7 Personal Review and Interpretation of New Neuroimaging: None new: MRI Brain pending I have reviewed Radiologic Studies and noted significant findings as follows: CTA HEAD/CTA NECK Addendum Date: 11/23/2024 THIS REPORT CONTAINS FINDINGS THAT MAY BE CRITICAL TO PATIENT CARE. The findings were verbally communicated via telephone conference with ROSITA Sams at 8:52 PM EDT on 11/23/2024. The findings were acknowledged and understood. THIS DOCUMENT HAS BEEN ELECTRONICALLY SIGNED BY PARTH HIGGINS MD Result Date: 11/23/2024 IMPRESSION: 1. There is a short segment near occlusion of the distal most aspect of M1 segment leftmiddle cerebral artery with some preserved filling of the attenuated appearing M2 branching distal to this. Uncertain if this is related to the old infarction, or if there is a new thrombus here. 2. There is abrupt occlusion just past the origin left posterior cerebral artery with minimal filling peripheral to this. PROCEDURE INFORMATION: Exam: CTA Neck Without And With Contrast Exam date and time: 11/23/2024 8:02 PM Age: 54 years old Clinical indication: Other: Aphasia; Additional info: Severe headache and new onset aphasia TECHNIQUE: Imaging protocol: Computed tomographic angiography of the neck without and with contrast. Exam focused on the cervical segments of the vasculature. 3D rendering (Not supervised by radiologist): MIP and/or 3D reconstructed images were created by the technologist. Radiation optimization: All CT scans at this facility use at least one of these dose optimization techniques: automated exposure control; mA and/or kV adjustment per patient size (includes targeted exams where dose is matched to clinical indication); or iterative reconstruction. Contrast material: ISOVUE 370; Contrast volume: 80 ml; Contrast route: INTRAVENOUS (IV); COMPARISON: CT C SPINE WO CONTRAST 11/23/2024 7:09 PM FINDINGS: Right common carotid artery: No stenos is. No dissection or occlusion. Right internal carotid artery: No stenosis of the extracranial segment. No dissection or occlusion. Right external carotid artery: No occlusion or stenosis of the origin. Left common carotid artery: No stenosis. No dissection or occlusion. Left internal carotid artery: No stenosis of the extracranial segment. No dissection or occlusion. Left external carotid artery: No occlusion or stenosis of the origin. Right vertebral artery: No stenosis. No dissection or occlusion. Left vertebral artery: Dominant left vertebral artery. Soft tissues: Normal. No significant soft tissue swelling. Bones/joints: No acute fracture. Other findings: No dissection, aneurysm or sten osis in the extracranial carotid systems or vertebral arteries. IMPRESSION: No dissection, aneurysmor stenosis in the extracranial carotid systems or vertebral arteries. REFERENCES: NASCET CRITERIA.The degree of stenosis in the cervical segment of the internal carotid artery is based on NASCET criteria. Normal is no stenosis. Mild is less than 50% stenosis. Moderate is 50-69% stenosis. Severe is 70% to 99% stenosis. Total occlusion is no detectable patent lumen. THIS DOCUMENT HAS BEEN ELECTRONICALLY SIGNED BY PARTH HIGGINS MD XR CHEST 1 VIEW Result Date: 11/23/2024 IMPRESSION: No lobar consolidation, pleural effusion or pulmonary edema. THIS DOCUMENT HAS BEEN ELECTRONICALLY SIGNED BY PARTH HIGGINS MD XR PELVIS 1 VIEW Result Date: 11/23/2024 IMPRESSION: No fracture seen on trauma AP views of the pelvis. THIS DOCUMENT HAS BEEN ELECTRONICALLY SIGNED BY PARTH HIGGINS MD CT CHEST W CONTRAST Result Date: 11/23/2024 IMPRESSION: 1. No lobar consolidation, pleural effusion or pulmonary edema. 2. No acute fracture. No pneumothorax. PROCEDURE INFORMATION: Exam: CT Abdomen And Pelvis With Contrast Exam date and time: 11/23/2024 7:12 PM Age: 54 years old Clinical indication: Injury or trauma; Fall; Generalized; Blunt trauma (contusions or hematomas); Additional info: Significant trauma with possible severe intraabdominal injury or abdominal pain TECHNIQUE: Imaging protocol: Computed tomography of the abdomen and pelvis with contrast. 3D rendering (Not supervised by radiologist): MIP and/or 3D reconstructed images were created by the technologist. Radiation optimization: All CT scans at this facility use at least one of these dose optimization techniques: automated exposure control;mA and/or kV adjustment per patient size (includes targeted exams where dose is matched to clinicalindication); or iterative reconstruction. Contrast material: ISOVUE 370; Contrast volume: 80 ml; Contrast route: INTRAVENOUS (IV); COMPARISON: DX XR PELVIS 1 VIEW 11/23/2024 7:07 PM FINDINGS: Lungs: Fairly extensive parenchymal scarring of the kidneys. Tiny renal cysts. Punctate nonobstructive stoneright kidney. Liver: Tiny hepatic probable cysts some too small to fully characterize. Gallbladder and biliary ducts: Normal. No calcified stones. No ductal dilation. Pancreas: Normal. No ductal dilation. Spleen: Normal. No splenomegaly. Adrenal glands: Normal. No mass. Kidneys and ureters: See "Lungs" finding. Stomach and bowel: Limited diverticulosis. Appendix: Normal appendix. Intraperitoneal space: Unremarkable. No free air. No significant fluid collection. Vasculature: Limited atheroscleros is. Lymph nodes: Unremarkable. No enlarged lymph nodes. Urinary bladder: Unremarkable as visualized. Reproductive: Unremarkable as visualized. Bones/joints: No acute fracture. Soft tissues: The parenchymal organs are intact without laceration. IMPRESSION: 1. The parenchymal organs are intact without laceration. 2. No acute fracture. COMMENTS: Consistent with the [employer]'s Incidental Findings Committee white paper (J Am Jessica Radiol 2018): Any incidental renal lesion less than 1 cm or classified as too small to characterize, or any incidental cystic renal lesion characterized as simple- appearing, is likely benign. No follow-up imaging is recommended for these lesions perconsensus recommendations based on imaging criteria. THIS DOCUMENT HAS BEEN ELECTRONICALLY SIGNED BY PARTH HIGGINS MD CT ABD/PELVIS W IV CONTRAST - WO ORAL CONTRAST Result Date: 11/23/2024 IMPRESSION: 1. No lobar consolidation, pleural effusion or pulmonary edema. 2. No acute fracture. No pneumothorax. PROCEDURE INFORMATION: Exam: CT Abdomen And Pelvis With Contrast Exam date and time: 11/23/2024 7:12 PM Age: 54 years old Clinical indication: Injury or trauma; Fall; Generalized; Blunt trauma (contusions or hematomas); Additional info: Significant trauma with possible severe intraabdominal injury or abdominal pain TECHNIQUE: Imaging protocol: Computed tomography of the abdomen and pelvis with contrast. 3D rendering (Not supervised by radiologist): MIP and/or 3D reconstructed images were created by the technologist. Radiation optimization: All CT scans at this facility use at least one of these dose optimization techniques: automated exposure control;mA and/or kV adjustment per patient size (includes targeted exams where dose is matched to clinicalindication); or iterative reconstruction. Contrast material: ISOVUE 370; Contrast volume: 80 ml; Contrast route: INTRAVENOUS (IV); COMPARISON: DX XR PELVIS 1 VIEW 11/23/2024 7:07 PM FINDINGS: Lungs: Fairly extensive parenchymal scarring of the kidneys. Tiny renal cysts. Punctate nonobstructive stoneright kidney. Liver: Tiny hepatic probable cysts some too small to fully characterize. Gallbladder and biliary ducts: Normal. No calcified stones. No ductal dilation. Pancreas: Normal. No ductal dilation. Spleen: Normal. No splenomegaly. Adrenal glands: Normal. No mass. Kidneys and ureters: See "Lungs" finding. Stomach and bowel: Limited diverticulosis. Appendix: Normal appendix. Intraperitoneal space: Unremarkable. No free air. No significant fluid collection. Vasculature: Limited atheroscleros is. Lymph nodes: Unremarkable. No enlarged lymph nodes. Urinary bladder: Unremarkable as visualized. Reproductive: Unremarkable as visualized. Bones/joints: No acute fracture. Soft tissues: The parenchymal organs are intact without laceration. IMPRESSION: 1. The parenchymal organs are intact without laceration. 2. No acute fracture. COMMENTS: Consistent with the [employer]'s Incidental Findings Committee white paper (J Am Jessica Radiol 2018): Any incidental renal lesion less than 1 cm or classified as too small to characterize, or any incidental cystic renal lesion characterized as simple- appearing, is likely benign. No follow-up imaging is recommended for these lesions perconsensus recommendations based on imaging criteria. THIS DOCUMENT HAS BEEN ELECTRONICALLY SIGNED BY PARTH HIGGINS MD CT HEAD/BRAIN WO CONTRAST Result Date: 11/23/2024 IMPRESSION: No acute intracranial abnormality. If symptoms persist, consider further evaluation with MRI, if there are no contraindications to obtaining a MRI scan. THIS DOCUMENT HAS BEEN ELECTRONICALLY SIGNED BY GERARDO ARREDONDO MD CT C SPINE WO CONTRAST Result Date: 11/23/2024 IMPRESSION: 1. No acute bony abnormality. Degenerative changes of the cervical spine. If symptoms persist, consider further evaluation with MRI, if there are no contraindications to obtaining a MRI scan. 2. Asymmetric appearance of the piriform sinuses with relative effacement of the left side. Underlying mucosal lesion cannot be excluded. Recommend correlation with direct visualization. THIS DOCUMENT HAS BEEN ELECTRONICALLY SIGNED BY GERARDO ARREDONDO MD I have reviewed the following Diagnostic Tests and noted significant findings as follows: TTE w/o bubble study 11/07/2019: No information available for AVR The examination is adequate to evaluate the referral indication. The qualitative LV ejection fraction is 55-59% (normal). The left ventricular cavity size is normal. The LV wall thickness is mildly increased (concentric). The left ventricular wall motion is normal by limited analysis. All left ventricular segments are not visualized. The left atrium is mildly enlarged. The left ventricular diastolic function is mildly abnormal (grade I). S/P AVR [place] [facility] 03/1999. Borderline increase in the gradient peak 31 mm Hg and mean 20 mm Hg. Grossly functiong normaly Significant aortic valve prosthesis regurgitation is absent. There is no previous study available for comparison. New TTE w bubble study: pending EKG 11/24/2024: Normal sinus rhythm LTM EEG 11/25/2024: Summary of Findings: This EEG is abnormal Continuous slow, generalized lateralized left hemisphere Diagnostic Significance: This EEG is suggestive of cortical dysfunction in the left hemisphere region. No EEG seizures or epileptiform discharges were recorded. LABS: Labs reviewed as indicated below: Latest Reference Range & Units 11/24/24 05:05 Triglycerides <=174 mg/dL 266 (H) Cholesterol <200 mg/dL 181 Non-HDL Cholesterol <=159 mg/dL 129 HDL Cholesterol >39 mg/dL 52 LDL Cholesterol (Direct Measure) <=129 mg/dL 64 (H): Data is abnormally high Latest Reference Range & Units 11/24/24 05:05 Hemoglobin A1C 4.0 - 5.6 % 6.6 (H) (H): Data is abnormally high Latest Reference Range & Units 11/25/24 05:20 SODIUM 135 - 146 mmol/L 139 POTASSIUM 3.5 - 5.1 mmol/L 3.7 CHLORIDE 98 - 107 mmol/L 107 CO2 22 - 32 mmol/L 23 BUN 6 - 20 mg/dL 14 CREATININE 0.6 - 1.2 mg/dL 1.1 EGFR >=60 mL/min 82 ANION GAP 7 - 15 mmol/L 9 GLUCOSE 70 - 120 mg/dL 131 (H) CALCIUM 8.4 - 10.2 mg/dL 7.8 (L) Magnesium 1.5 - 2.6 mg/dL 1.9 Phosphorus 2.5 - 4.8 mg/dL 2.1 (L) (H): Data is abnormally high (L): Data is abnormally low Latest Reference Range & Units 11/25/24 05:20 WBC 4.00 - 10.80 K/uL 8.79 RBC 4.50 - 5.25 M/uL 3.33 HGB 14.0 - 16.8 g/dL 9.9 (L) HCT 40.0 - 48.4 % 29.9 (L) MCV 82.0 - 99.5 fL 89.8 MCH 27.0 - 34.0 pg 29.7 MCHC 32.0 - 36.0 g/dL 33.1 RDW 11.5 - 15.5 % 15.0 PLT 140 - 400 K/uL 116 (L) MPV 6.6 - 11.1 fL 11.6 (L): Data is abnormally low IMPRESSION: Patient is a 54-year old man with PMHx of Aortic valve replacement on [employer] Eliquis, prior L MCA stroke presented to [facility] ED with aphasia following hsi fall and hitting his head. CTA H/N showed Lt M1 sub-occlusive thrombus and P1 cut-off. Patient was not a TNK candidate given his LKW. He was an endovascular candidate for which he was [place] [facility]/p L M1 TICI3 with initial NIHSS of 20 Patient on room air with improved NIHSS of 7 today. Neurologic examination shows disorientation, R facial droop, R sided motor deficit, R sensory deficit, moderate mixed aphasia with expressive>receptive component, and extinction. Suspect new onset aphasia to be secondary to acute L MCA territory stroke. Still awaiting MRI to evaluate for stroke burden / hemorrhagic conversion. Can make decision on when to resume AC once imaging has resulted and after conferring with vascular surgery (given new onset hematoma seen on CTA Abd/Pelvis). TTE pending as well. RECOMMENDATIONS/PLAN: Left M1 sub-occlusive thrombus - STAT CT head for any changes in neuro exam. - MRI brain without contrast (stroke protocol) whenever medically stable. - LTM EEG reviewed; no epileptiform activity. Now discontinued. - Telemetry to assess for cardiac arrhythmias. - TTE with bubble study pending. to investigate for cardioembolic source. - LDL 64, A1c 6.6 - Continue holding [employer] Eliquis pending MRI Brain. Will also need input from Vascular Surgery in regards to safety of resuming AC in the setting of hematoma. - Continue atorvastatin 40 mg for goal LDL < 70. - Manage blood glucose for goal HbA1C < 7.0%. - PT, OT, speech therapy Stroke Checklist: DVT Prophylaxis: receiving mechanical, but chemical contraindicated, reason: ischemic stroke Antithrombotic Therapy: please order the following or document a contraindication to: s/p thrombectomy, pending MRI Atrial Fibrillation or Flutter: yes - plan to initiate anticoagulation as follows, pending brain MRI Statin: receiving - high intensity Stroke Education: personal risk factors for stroke could not be provided due to: patient has aphasia Rehab Therapy Plan: O.T., P.T., and Speech Patient Has Decision Making Capacity: no, reason: aphasia Code Status: Full Code The patient was examined and was discussed with Dr. Goodman. Cosigned by Yunier Goodman MD at 11/25/2024 5:51 PM EDT Associated attestation - Yunier Goodman MD - 11/25/2024 5:51 PM EDT I saw and evaluated the patient today. I have reviewed the resident/fellow physician note and agree. * Esther Espinal MD - 11/25/2024 6:58 AM EDT CCM - PROGRESS NOTE [address] [id number] Name: Tariq Sawant [place] [facility] A443/[id number] Date: 11/24/2024 Time: 6:59 AM PATIENT DESCRIPTION: Patient is a 54 year old male with PMHx of previous left MCA stroke with residual right sided weakness HTN, dyslipidemia, and mitral valve replacement on eliquis is admitted after being found to have possible subocclusive thrombus at the distal LM1 segment of unclear acuity in addition to abrupt cutoff at the left P1 segment on CTA head. Patient underwent DSA s/p TICI 3 but was complicated with groin bleeding around the sheath in bilateral groins. CTA aortagram intra-op showed No evidence of injury on aortogram shot. CTA abdomen/pelvis showed Hematoma within the right lower abdomen adjacent to the bladder without evidence of active extravasation and 1.5 cm focus of contrast adjacent to the right femoral artery consistent with a pseudoaneurysm. HPI/EVENTS OF NOTE: - DSA on 11/24/24 s/p TICI 3 - Extubated 11/24/24 No overnight events. He passed swallow eval and tolerating diet well. Patient is feeling better as per him. He denies any chest pain, fever, chills, nausea, vomiting, constipation or diarrhea. CONSTITUTIONAL DATA: BP: 149 mmHg/77 mmHg (11/25/24 06) Pulse: 94 (11/25/24 06) Resp: 21 (11/25/24599) Temp: 37.39 C (11/25/24599) Temp Summary: Temp Min: 37.3 °C (99.1 °F) Max: 38 °C (100.4 °F) SpO2: 91 % (11/25/24599) O2 flow rate: 2 L/MIN (11/25/24 0100) Supplemental O2 Delivery: Room Air, None (11/25/24599) Vent Settings: Ventilator Mode: Spontaneous (11/24/24 0800) Set Rate: 15 (11/24/24 0132) Set Tidal Volume: 500 ml (11/24/24 0132) O2 %: 40 % (11/24/24 1000) Mean Airway Pressure Measurement: 10 cmH2O (11/24/24 0614) Total Minute Volume Measurement: 10.1 L/min (11/24/24 0614) PHYSICAL EXAM: General: Ill appearing, on NC HEENT: NC/AT, PERRLA, EOMI Neck: The neck is supple without adenopathy. Trachea is midline. No JVD. Cardiac: RRR, No murmurs, gallops, or rubs are auscultated. Respiratory: The chest wall is symmetric and without deformity. No signs of trauma. Chest wall is non-tender. No signs of respiratory distress. +b/l coarse breath sounds Abdominal: Soft, NT/ND. Bowel sounds are present and normoactive in all four quadrants. Extremities: No edema in lower extremities b/l, 2+ dorsalis pedis b/l, +right and left femoral artery access site has mild bruising, +hematoma noticed. Neurological: AAOX3, CN 2-12 grossly intact, right sided residual UE and LE weakness noted. Sensation intact. LABORATORY VALUES: reviewed Blood Gas: Lab results within last 7 days (see chart for full results) Units 11/24/24 0151 11/23/24 2345 11/23/24 2304 pH, Arterial units 7.326* 7.330* 7.323* pCO2, Arterial mmHg 42.3 41.7 43.7 pO2, Arterial mmHg 91.6 100.0 95.0 Base Excess, Arterial mmol/L -3.9* -3.8* -3.5* FiO2 % Not Provided Not Provided Not Provided Chemistry Panel: Lab results within last 7 days (see chart for full results) Units 11/25/24 0520 11/24/24 0505 11/24/24 0151 11/24/24 0037 11/23/24 1902 SODIUM mmol/L 139 136 134* -- 135 POTASSIUM mmol/L 3.7 4.8 4.6 -- 4.0 POTASSIUM - POCT mmol/L -- -- -- 4.0 -- CHLORIDE mmol/L 107 102 102 -- 99 CO2 mmol/L 23 19* 20* -- 18* EGFR mL/min 82 76 80 -- 81 BUN mg/dL 14 16 17 -- 18 CREATININE mg/dL 1.1 1.1 1.1 -- 1.1 GLUCOSE mg/dL 131* 204* 191* -- 145* CALCIUM mg/dL 7.8* 8.5 8.7 -- 9.0 Magnesium mg/dL 1.9 2.3 1.7 -- -- Phosphorus mg/dL 2.1* 5.1* 4.9* -- -- ANION GAP mmol/L 9 15 12 -- 18* Complete Blood Count: Lab results within last 7 days (see chart for full results) Units 11/25/24 0520 11/24/24 1205 11/24/24 0505 11/24/24 0151 11/23/24 1902 WBC K/uL 8.79 14.31* 16.49* 17.22* 7.06 HGB g/dL 9.9* 11.9* 13.2* 13.6* 15.7 HCT % 29.9* 34.8* 39.4* 40.6 45.9 PLT K/uL 116* 169 177 189 212 MCV fL 89.8 87.4 88.9 88.3 86.1 Cardiac Studies: Lab results within last 7 days (see chart for full results) Units 11/23/24 1902 Troponin T, High Sensitivity ng/L 12 Coagulation Studies: Lab results within last 7 days (see chart for full results) Units 11/24/24 0151 11/23/24 1902 Prothrombin Time seconds 14.5 14.5 INR 1.1 1.1 Liver Function Panel: Lab results within last 7 days (see chart for full results) Units 11/24/24 0505 11/23/24 1902 Albumin g/dL -- 3.9 Protein g/dL -- 6.8 Bilirubin, Total mg/dL -- 0.7 AST U/L -- 31 ALT U/L -- 32 Alkaline Phosphatase U/L -- 53 Triglycerides mg/dL 266* -- Infectious Studies: Lab results within last 7 days (see chart for full results) Units 11/24/24 1807 11/24/24 1205 11/24/24 0505 11/24/24 0151 11/23/24 2345 11/23/24 1902 Lactate mmol/L 1.9 3.5* 3.8* 2.3* 2.3* 4.1* Cultures: reviewed. No results in the last 7 days - inpatent use only Recent Cultures (2 Weeks) No lab values to display. RADIOGRAPHIC STUDIES: reviewed CTA abdomen/pelvis 11/24/24 1. Hematoma within the right lower abdomen adjacent to the bladder without evidence of active extravasation. 2. Small hematoma adjacent to right femoral access site without evidence of active extravasation. 3. 1.5 cm focus of contrast adjacent to the right femoral artery consistent with a pseudoaneurysm. 4. No splenic hypodensity of the inferior spleen which may represent area of ischemia. CTA head/neck 11/23/24 1. There is a short segment near occlusion of the distal most aspect of M1 segment left middle cerebral artery with some preserved filling of the attenuated appearing M2 branching distal to this. Uncertain if this is related to the old infarction, or if there is a new thrombus here. 2. There is abrupt occlusion just past the origin left posterior cerebral artery with minimal filling peripheral to this. 3. No dissection, aneurysm or stenosis in the extracranial carotid systems or vertebral arteries. Repeat CT head 1. Likely small acute left MCA territory infarct. No hemorrhagic transformation. 2. Consider MRI for further assessment. US Right femoral artery 11/24/24 Right groin duplex with no evidence of pseudoaneurysm or AV fistula. Possible hematoma noted in the region of recent catheterization with a patent branch adjacent to the hematoma. Active Problems: Ischemic stroke (HCC) (POA: Unknown) POA = Present On Admission previous left MCA stroke with residual right sided weakness HTN, dyslipidemia, and mitral valve replacement on eliquis SYSTEM BASED PLAN: NEURO / PSYCH Acute ischemic CVA, Left M1 occlusion s/p TICI 3 Previous Left MCA CVA with residual right hemiparesis Change Neurochecks Q4hr DSA on 11/24/24 - s/p TICI 3 Neurology and NeuroSx on board Repeat CT head read as above D/C LTM today - no seizures Keep SBP <160 MRI brain pending TTE pending Stroke lab: Lipid panel: Chol 181, TAG 266, HDL 52, LDL 64 HbA1c: 6.6 TSH: pending 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 CARDIAC / VASCULAR Hx of HTN, DLD Hx of Mitral valve replacement on Eliquis Lactic acidosis - resolved Telemetry monitoring EKG: NSR, LAD, no acute ST changes Trop: negative Keep SBP <160 Hold SPRING MACHINE OPERATOR Eliquis, Benazapril, metoprolol Restart SPRING MACHINE OPERATOR Amlodipine Continue SPRING MACHINE OPERATOR statin D/C IVF PULMONARY Intubated for airway protection Keep SpO2 >94% IS and flutter for pulmonary hygeine GI / HEPATOBILIARY No acute issue Diet as tolerated Bowel regimen with Docusate and Senna Last BM: SPRING MACHINE OPERATOR RENAL/ METABOLIC / FLUIDS No acute issue Monitor I/Os Daily BMP, Mg, PO4 Replace electrolytes PRN D/C IVF ID No acute issue HEME Acute blood loss during DSA Right lower abdomen hematoma within the right lower abdomen adjacent to the bladder without evidence of active extravasation. Small hematoma adjacent to right femoral access site without evidence of active extravasation. 1.5 cm focus of contrast adjacent to the right femoral artery consistent with a pseudoaneurysm. S/p 1unit PRBC and 2 cryoprecipitate in OR TEG: normal Daily CBC Repeat H and H in evening today. Vascular Sx on board, f/up SCDs for DVT ppx Vascular duplex (11/24/24): no pseudoaneurysm seen Repeat Vascular duplex to assess for the pseudoaneurysm as per Vascular Sx. ENDOCRINE No acute issue Keep glucose between 140-180 Accucheck and RISS ACHS HbA1C: 6.6 MUSCULOSKELETAL / SKIN No acute issue PT/OT when able to DEVICES Urethral Catheter Coude (Active) Number of days: 1 Peripheral Line Left Antecubital 18 Gauge (Active) Number of days: 2 Peripheral Line Left Hand 16 Gauge (Active) Number of days: 2 CVC Double Lumen Right Internal jugular (Active) Number of days: 2 Arterial Line Left Radial (Active) Number of days: 2 Will remove CVC and Hanna today. GLOBAL ISSUES: Analgesia: no pain Sedation: N/A Delirium/Confusion Assessment Method for ICU (CAM-ICU): CAM-ICU negative HOB Elevation: greater than 30 degress Nutrition: PO DVT Prophylaxis: pneumatic compression devices alone due to chemoprophylaxis contraindication Stress Ulcer Prophylaxis: not indicated Glycemic Control: controlled - not in protocol Central Line Necessity Reviewed: reviewed and needed Caceres: N/A Disposition: transfer to floor Patient's decisional capacity: has capacity to make decisions Communication with Patient/Family: No meeting held. Goals of Care: stabilize hemodynamic status and improve mental status to baseline Case discussed with Dr. Mando Espinal MD Pul/CC Fellow Cosigned by Osorio Gilmore MD at 11/25/2024 4:22 PM EDT Associated attestation - Osorio Gilmore MD - 11/25/2024 4:22 PM EDT Attending Attestation: I have discussed the patient's management with the medical trainee and agree with the note. Please refer to the documented findings and plan of care. The patient's service consisted of an evaluation.I have seen and evaluated the patient. No further signs of bleeding or seizures. Stop LTM. Will need repeat duplex. Can restart anti-htn. Body mass index is 41.23 kg/m². Active Problems: Acute ischemic left MCA stroke (HCC) (POA: Unknown) History of ischemic left MCA stroke (POA: Unknown) Expressive aphasia (POA: Unknown) On continuous oral anticoagulation (POA: Unknown) Pseudoaneurysm following procedure (HCC) (POA: Unknown) Resolved Problems: * No resolved hospital problems. * POA = Present On Admission I have provided follow-up hospital care services for this patient on the date referenced above. Time devoted to patient care services described in this note equal: 10 minutes [id number] and 35 minutes total evaluation time. * Esther Espinal MD - 11/24/2024 6:59 AM EDT CCM - [place] [facility] [address] Name: Tariq Sawant [place] [facility] [place] Date: 11/24/2024 Time: 6:59 AM PATIENT DESCRIPTION: Patient is a 54 year old male with PMHx of previous left MCA stroke with residual right sided weakness HTN, dyslipidemia, and mitral valve replacement on eliquis is admitted after being found to have possible subocclusive thrombus at the distal LM1 segment of unclear acuity in addition to abrupt cutoff at the left P1 segment on CTA head. Patient underwent DSA s/p TICI 3 but was complicated with groin bleeding around the sheath in bilateral groins. CTA aortagram intra-op showed No evidence of injury on aortogram shot. CTA abdomen/pelvis showed Hematoma within the right lower abdomen adjacent to the bladder without evidence of active extravasation and 1.5 cm focus of contrast adjacent to the right femoral artery consistent with a pseudoaneurysm. HPI/EVENTS OF NOTE: - DSA on 11/24/24 s/p TICI 3 Patient passed SBT and is extubated successfully on NC oxygen. He denies any chest pain, nausea, vomiting, constipation, diarrhea, fever or chills. CONSTITUTIONAL DATA: BP: 134 mmHg/79 mmHg (11/24/24 1100) Pulse: 116 (11/24/24 1100) Resp: 36 (11/24/24 1100) Temp: 37.5 C (11/24/24 1000) Temp Summary: Temp Min: 36.6 °C (97.9 °F) Max: 37.9 °C (100.2 °F) SpO2: 97 % (11/24/24 1100) O2 flow rate: 6 L/MIN (11/24/24 1100) Supplemental O2 Delivery: Nasal Cannula (11/24/24 1100) Vent Settings: Ventilator Mode: Spontaneous (11/24/24 0800) Set Rate: 15 (11/24/24 0132) Set Tidal Volume: 500 ml (11/24/24 0132) O2 %: 40 % (11/24/24 1000) Mean Airway Pressure Measurement: 10 cmH2O (11/24/24 0614) Total Minute Volume Measurement: 10.1 L/min (11/24/24 0614) PHYSICAL EXAM: General: Ill appearing, on NC HEENT: NC/AT, PERRLA, EOMI Neck: The neck is supple without adenopathy. Trachea is midline. No JVD. Cardiac: RRR, No murmurs, gallops, or rubs are auscultated. Respiratory: The chest wall is symmetric and without deformity. No signs of trauma. Chest wall is non-tender. No signs of respiratory distress. +b/l coarse breath sounds Abdominal: Soft, NT/ND. Bowel sounds are present and normoactive in all four quadrants. Extremities: No edema in lower extremities b/l, 2+ dorsalis pedis b/l, +right and left femoral artery access site has mild bruising, +hematoma noticed. Neurological: AAOX3, CN 2-12 grossly intact, right sided residual UE and LE weakness noted. Sensation intact. LABORATORY VALUES: reviewed Blood Gas: Lab results within last 7 days (see chart for full results) Units 11/24/24 0151 11/23/24 2345 11/23/24 2304 pH, Arterial units 7.326* 7.330* 7.323* pCO2, Arterial mmHg 42.3 41.7 43.7 pO2, Arterial mmHg 91.6 100.0 95.0 Base Excess, Arterial mmol/L -3.9* -3.8* -3.5* FiO2 % Not Provided Not Provided Not Provided Chemistry Panel: Lab results within last 7 days (see chart for full results) Units 11/24/24 0505 11/24/24 0151 11/24/24 0037 11/23/24 1902 SODIUM mmol/L 136 134* -- 135 POTASSIUM mmol/L 4.8 4.6 -- 4.0 POTASSIUM - POCT mmol/L -- -- 4.0 -- CHLORIDE mmol/L 102 102 -- 99 CO2 mmol/L 19* 20* -- 18* EGFR mL/min 76 80 -- 81 BUN mg/dL 16 17 -- 18 CREATININE mg/dL 1.1 1.1 -- 1.1 GLUCOSE mg/dL 204* 191* -- 145* CALCIUM mg/dL 8.5 8.7 -- 9.0 Magnesium mg/dL 2.3 1.7 -- -- Phosphorus mg/dL 5.1* 4.9* -- -- ANION GAP mmol/L 15 12 -- 18* Complete Blood Count: Lab results within last 7 days (see chart for full results) Units 11/24/24 0505 11/24/24 0151 11/23/24 1902 WBC K/uL 16.49* 17.22* 7.06 HGB g/dL 13.2* 13.6* 15.7 HCT % 39.4* 40.6 45.9 PLT K/uL 177 189 212 MCV fL 88.9 88.3 86.1 Cardiac Studies: Lab results within last 7 days (see chart for full results) Units 11/23/24 1902 Troponin T, High Sensitivity ng/L 12 Coagulation Studies: Lab results within last 7 days (see chart for full results) Units 11/24/24 0151 11/23/24 1902 Prothrombin Time seconds 14.5 14.5 INR 1.1 1.1 Liver Function Panel: Lab results within last 7 days (see chart for full results) Units 11/24/24 0505 11/23/24 1902 Albumin g/dL -- 3.9 Protein g/dL -- 6.8 Bilirubin, Total mg/dL -- 0.7 AST U/L -- 31 ALT U/L -- 32 Alkaline Phosphatase U/L -- 53 Triglycerides mg/dL 266* -- Infectious Studies: Lab results within last 7 days (see chart for full results) Units 11/24/24 0505 11/24/24 0151 11/23/24 2345 11/23/24 1902 Lactate mmol/L 3.8* 2.3* 2.3* 4.1* Cultures: reviewed. No results in the last 7 days - inpatent use only Recent Cultures (2 Weeks) No lab values to display. RADIOGRAPHIC STUDIES: reviewed CTA abdomen/pelvis 11/24/24 1. Hematoma within the right lower abdomen adjacent to the bladder without evidence of active extravasation. 2. Small hematoma adjacent to right femoral access site without evidence of active extravasation. 3. 1.5 cm focus of contrast adjacent to the right femoral artery consistent with a pseudoaneurysm. 4. No splenic hypodensity of the inferior spleen which may represent area of ischemia. CTA head/neck 11/23/24 1. There is a short segment near occlusion of the distal most aspect of M1 segment left middle cerebral artery with some preserved filling of the attenuated appearing M2 branching distal to this. Uncertain if this is related to the old infarction, or if there is a new thrombus here. 2. There is abrupt occlusion just past the origin left posterior cerebral artery with minimal filling peripheral to this. 3. No dissection, aneurysm or stenosis in the extracranial carotid systems or vertebral arteries. Repeat CT head 1. Likely small acute left MCA territory infarct. No hemorrhagic transformation. 2. Consider MRI for further assessment. 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 CARDIAC / VASCULAR Hx of HTN, DLD Hx of Mitral valve replacement on Eliquis Lactic acidosis Telemetry monitoring EKG: NSR, LAD, no acute ST changes Trop: negative Keep SBP <160 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 SPRING MACHINE OPERATOR Eliquis, Benazapril, metoprolol, amlodipine Continue SPRING MACHINE OPERATOR statin Lactic acidosis Q6hrs Isolyte IVF @ 75cc/hr PULMONARY Intubated for airway protection Keep SpO2 >94% Respiratory driven protocol SBT today for possible extubation GI / HEPATOBILIARY No acute issue Keep NPO Bowel regimen with Docusate and Senna Last BM: SPRING MACHINE OPERATOR RENAL/ METABOLIC / FLUIDS No acute issue Monitor I/Os Daily BMP, Mg, PO4 Replace electrolytes PRN D/C IVF ID No acute issue HEME Acute blood loss during DSA Right lower abdomen hematoma within the right lower abdomen adjacent to the bladder without evidence of active extravasation. Small hematoma adjacent to right femoral access site without evidence of active extravasation. 1.5 cm focus of contrast adjacent to the right femoral artery consistent with a pseudoaneurysm. S/p 1unit PRBC and 2 cryopercipitate TEG: normal Daily CBC Vascular Sx on board, f/up SCDs for DVT ppx Vascular duplex to assess for the pseudoaneurysm ENDOCRINE No acute issue Keep glucose between 140-180 Accucheck Q6hrs MUSCULOSKELETAL / SKIN No acute issue PT/OT when able to DEVICES NG/OG Tube Center mouth Orogastric (Active) Number of days: 0 Urethral Catheter Coude (Active) Number of days: 0 Peripheral Line Left Antecubital 18 Gauge (Active) Number of days: 1 Peripheral Line Left Hand 16 Gauge (Active) Number of days: 1 CVC Double Lumen Right Internal jugular (Active) Number of days: 1 Arterial Line Left Radial (Active) Number of days: 1 Airway Mouth Oral ETT (Active) Number of days: 1 GLOBAL ISSUES: Analgesia: no pain Sedation: N/A Delirium/Confusion Assessment Method for ICU (CAM-ICU): CAM-ICU negative HOB Elevation: greater than 30 degress Nutrition: NPO DVT Prophylaxis: pneumatic compression devices alone due to chemoprophylaxis contraindication Stress Ulcer Prophylaxis: not indicated Glycemic Control: controlled - not in protocol Central Line Necessity Reviewed: reviewed and needed Caceres: will remove Disposition: keep in ICU Patient's decisional capacity: has capacity to make decisions Communication with Patient/Family: No meeting held. Goals of Care: stabilize hemodynamic status and improve mental status to baseline Case discussed with Dr. Hutchins. Esther Espinal MD Pul/CC Fellow Cosigned by Luis Alfredo Hutchins DO at 11/26/2024 8:27 AM EDT Associated attestation - Luis Alfredo Hutchins DO - 11/26/2024 8:27 AM EDT LATE ENTRY and care plan represents plan from 11/24/2024. I have provided critical care diagnostic services for respiratory failure and therapeutic services with frequent ventilator adjustments for this patient on the date referenced above. Time devoted to patient care services described in this note equal: 36 minutes total critical care time exclusive oftime spent performing procedures or time spent by another provider or resident. I saw and evaluated the patient today. I have reviewed the resident/fellow physician note and agree. Stroke s/p reperfusion. Complication of a RP hematoma. Alert and on sbt while on rounds. He looked great and we extubated him on rounds. I was present. Will follow typical post extubation swallow process. Bp controlled. * Peter Blas MD - 11/24/2024 3:19 AM EDT NEUROLOGICAL SURGERY [place] [facility] [address] Name: Tariq Sawant [place] [facility] [place] Date: 11/24/2024 Time: 3:19 AM SUBJECTIVE: Transferred to ICU postop without immediate issues OBJECTIVE: Most recent vital signs: BP: 143 mmHg/82 mmHg (11/24/24 0230) Pulse: 108 (11/24/24 0230) Resp: 21 (11/24/24229) Temp: 36.78 C (11/24/240) Temp Summary: Temp Min: 36.8 °C (98.2 °F) Max: 36.8 °C (98.2 °F) SpO2: 98 % (11/24/24229) O2 flow rate: Supplemental O2 Delivery: Ventilator (11/24/24129) Vital signs over last 24 hours: Systolic BP: Most Recent Systolic BP Av.8 mmHg Min: 137 mmHg Max: 150 mmHg Temperature: Most Recent Temperature Av.78 C Min: 36.78 C Max: 36.78 C Pulse: Pulse Avg: Pulse Av.5 Min: 80 Max: 108 Respirations: Resp Av.8 Min: 14 Max: 21 SpO2: SpO2 Av % Min: 98 % Max: 100 % SpO2: SpO2 Av % Min: 98 % Max: 100 % FiO2%: O2 % Av % Min: 40 % Max: 40 % ICP: No data found.CPP (adult): No data found.Intake Input/Output: (last 24 hours) Intake/Output Summary (Last 24 hours) at 11/24/2024 0319 Last data filed at 11/24/2024 0300 Gross per 24 hour Intake 2085.39 ml Output 800 ml Net 1285.39 ml Groin Puncture Site: clean, dry dressing in place Distal Pulses: dorsalis pedis 2+ on right, bilateral PT 2+ Neurologic Examination Intubated and sedated PERRL Opens eyes to voice Purposeful and localizes to pain Does not follow commands LABS: Blood count: Lab Results Component Value Date/Time WBC 17.22 (H) 11/24/2024 01:51 AM HGB 13.6 (L) 11/24/2024 01:51 AM HCT 40.6 11/24/2024 01:51 AM PLT 189 11/24/2024 01:51 AM Coagulation studies: Lab Results Component Value Date/Time INR 1.1 11/24/2024 01:51 AM Chemistry: Lab Results Component Value Date/Time BUN 17 11/24/2024 01:51 AM CREAT 1.1 11/24/2024 01:51 AM NA 134 (L) 11/24/2024 01:51 AM POTASSIUM 4.6 11/24/2024 01:51 AM CO2 20 (L) 11/24/2024 01:51 AM Imaging studies: No new images Problem list: Active Problems: * No active hospital problems. * Resolved Problems: * No resolved hospital problems. * CLINICAL HISTORY AND PLAN: Tariq Sawant is a 54 year old male patient with CTA showing L MCA occlusion, LKW sometime yesterday, NIH 13, prior stroke with right hemiparesis, hx aortic valve replacement on eliquis. Now s/p TICI 3 thrombectomy on 11/[address] Blas. C/b right intraperitoneal hematoma adjacent to bladder Q1 neurochecks Will keep intubated tonight DECT scan at 0400 Flat until morning 6h Closely watch vitals, trend H&H Vascular surgery following, appreciate recs Stroke neurology following, appreciate recs Urology to evaluate for caceres placement SBP 100-160 Mechanical DVT ppx IVF Discussed with Dr. Blas and ICU Artie Arredondo MD Neurosurgery, PGY3 I saw and evaluated the patient today. I have reviewed the resident/fellow physician note and agree. documented in this encounter H&P Notes * Jaida Leger CRNP - 11/24/2024 1:04 AM EDT HISTORY & PHYSICAL EXAMINATION - Critical Care Medicine [facility] [address] Name: Tariq Sawant Location[place] [facility] Date: 11/24/2024 Time: 1:14 AM Care during the described time interval was provided by me. I have reviewed this patient's available data, including medical history, events of note, physical examination and test results. DATE OF ADMISSION: 11/24/2024 PRESENTING PROBLEM: Left M1 occlusion HPI: Tariq Sawant is a 54 year old with a PMHx of previous left MCA stroke with residual right sided weakness HTN, dyslipidemia, and mitral valve replacement on qu who presented to [facility] ED from his facility for a syncopal episode. Per EMS, he fell off his couch 11/22/2024 and hit the left side of his head. For EMS and the ED he was aphasic, only able to answer yes/no questions. LKW was 11/22/2024, unsure of a time. He complained of a headache on arrival and has RUE weakness at baseline.CTH showed chronic left love injury but no prior comparison available. Trauma scans negative for traumatic injury. CTA head neck showed encephalomalacia and cortical atrophy of the L hemisphere consistent with prior stroke; there is no evidence of acute ischemia, hemorrhage, or mass effect. There is a possible subocclusive thrombus at the distal LM1 segment of unclear acuity in addition to abruptcutoff at the left P1 segment. Distal contrast opacification of MCA vessels are potentially delayedbut otherwise preserved. Lactate also elevated so there is a concern for seizure. Patient being transferred [place] [facility] [place] DSA with neurosurgery and LTM. Upon arrival to the NSICU, he remained intubated and sedated from his procedure. Intra op, he received 1 unit prbc and 2 units of cryo. PAST MEDICAL HISTORY: Past Medical History: Diagnosis Date Heart valve replaced by other means Aortic Valve Replacement Sequelae, post-stroke CVA PAST SURGICAL HISTORY: Past Surgical History: Procedure Laterality Date REPLACEMENT AORTIC VALVE, BYPASS WITH PROSTHETIC VALVE Aortic Valve Replacement FAMILY HISTORY: Family History Problem Relation Name Age of Onset Neurological Disorder Mother brain aneurysm SOCIAL HISTORY: Social History Tobacco Use Smoking status: Former Smokeless tobacco: Never Tobacco comments: 1.5 ppk/day, quit November 09 Vaping Use Vaping status: Never Used Substance Use Topics Alcohol use: No Drug use: Not on file PRIOR TO ADMISSION MEDS: Current Outpatient Medications Medication Instructions amLODIPine Besylate 10 MG Oral Tablet (Norvasc) No dose, route, or frequency recorded. Benazepril HCl 20 MG Oral Tablet (Lotensin) No dose, route, or frequency recorded. EFFEXOR XR 37.5 MG OR CP24 1 tablet BID Eliquis 5 MG Oral Tablet No dose, route, or frequency recorded. hydrOXYzine HCl 25 MG Oral Tablet Take by mouth . Melatonin 5 MG Oral Tablet Take 1 tablet (5 mg) one hour before bedtime (~11 pm) nightly. Simvastatin 20 MG Oral Tablet (Zocor) No dose, route, or frequency recorded. TOPROL XL 50 MG OR TB24 1 TABLET DAILY ALLERGIES: Bee venom, Cephalosporins, and Penicillin g ROS: Review of Systems Unable to perform ROS: Intubated PHYSICAL EXAMINATION: Most Recent Vital Signs: BP: 143 mmHg/82 mmHg (11/24/24229) Pulse: 108 (11/24/24229) Resp: 21 (11/24/24229) Temp: 36.78 C (11/24/24129) Temp Summary: Temp Min: 36.8 °C (98.2 °F) Max: 36.8 °C (98.2 °F) SpO2: 98 % (11/24/24229) O2 flow rate: Supplemental O2 Delivery: Ventilator (11/24/24129) No data found. Vent Settings: Ventilator Mode: Adaptive Pressure Ventilation Controlled Mechanical Ventilation (11/24/24131) Set Rate: 15 (11/24/24131) Set Tidal Volume: 500 ml (11/24/24131) O2 %: 40 % (11/24/24131) Mean Airway Pressure Measurement: 11 cmH2O (11/24/24131) Total Minute Volume Measurement: 7.3 L/min (11/24/24131) Physical Exam Vitals reviewed. Constitutional: Interventions: He is sedated and intubated. Eyes: Pupils: Pupils are equal, round, and reactive to light. Cardiovascular: Rate and Rhythm: Normal rate and regular rhythm. Pulses: Normal pulses. Pulmonary: Effort: He is intubated. Breath sounds: Normal breath sounds. Abdominal: General: Bowel sounds are normal. Palpations: Abdomen is soft. Tenderness: There is no abdominal tenderness. Musculoskeletal: Right lower leg: No edema. Left lower leg: No edema. Skin: General: Skin is warm and dry. Capillary Refill: Capillary refill takes less than 2 seconds. Coloration: Skin is pale. Comments: Bilateral groin sites intact Neurological: GCS: GCS eye subscore is 1. GCS verbal subscore is 1. GCS motor subscore is 1. LABORATORY VALUES: reviewed Latest Reference Range & Units 11/23/24 19:02 ABO A A ABO/RH Rpt Rh Positive Positive TYPE AND SCREEN Rpt Specimen Expiration Date 11/26/2024 23:59 Red Blood Cell Antibody Screen Negative Troponin T, High Sensitivity <=22 ng/L 12 CK 39 - 308 U/L 250 SODIUM 135 - 146 mmol/L 135 POTASSIUM 3.5 - 5.1 mmol/L 4.0 CHLORIDE 98 - 107 mmol/L 99 CO2 22 - 32 mmol/L 18 (L) BUN 6 - 20 mg/dL 18 CREATININE 0.6 - 1.2 mg/dL 1.1 EGFR >=60 mL/min 81 ANION GAP 7 - 15 mmol/L 18 (H) GLUCOSE 70 - 120 mg/dL 145 (H) CALCIUM 8.4 - 10.2 mg/dL 9.0 Lactate 0.4 - 2.0 mmol/L 4.1 (HH) Protein 6.0 - 8.3 g/dL 6.8 INR 0.8 - 1.2 1.1 Prothrombin Time 11.6 - 15.2 seconds 14.5 CBC Rpt WBC 4.00 - 10.80 K/uL 7.06 RBC 4.50 - 5.25 M/uL 5.33 HGB 14.0 - 16.8 g/dL 15.7 HCT 40.0 - 48.4 % 45.9 MCV 82.0 - 99.5 fL 86.1 MCH 27.0 - 34.0 pg 29.5 MCHC 32.0 - 36.0 g/dL 34.2 RDW 11.5 - 15.5 % 14.8 PLT 140 - 400 K/uL 212 MPV 6.6 - 11.1 fL 12.1 CBC WITH WBC DIFFERENTIAL Rpt Absolute Neutrophils 1.80 - 7.70 K/uL 4.82 Absolute Lymphocytes 1.00 - 4.80 K/ul 1.66 Absolute Monocytes 0.00 - 1.10 K/uL 0.49 Absolute Eosinophils 0.00 - 0.70 K/uL 0.07 Absolute Basophils 0.00 - 0.20 K/uL 0.02 Albumin 3.8 - 5.0 g/dL 3.9 AST 10 - 50 U/L 31 ALT 10 - 50 U/L 32 Alkaline Phosphatase 35 - 130 U/L 53 Bilirubin, Total <=1.2 mg/dL 0.7 ETHANOL Negative Negative RADIOGRAPHIC STUDIES: reviewed CTH FINDINGS: Brain: Encephalomalacia involving the left temporal lobe left basal ganglia and left centrum semiovale compatible with old injury. No acute confluent lobar ischemic infarct. No acute intracranial hemorrhage. Cerebral ventricles: Ex vacuo dilation of the left lateral ventricle. Paranasal sinuses: No fluid levels. Mastoid air cells: Visualized mastoid air cells are well aerated. Bones: No acute calvarial fracture. Soft tissues: Visualized soft tissues are unremarkable. CT C Spine FINDINGS: Bones/joints: The cervical vertebral body heights are maintained. Normal alignment. C2-C3: Broad-based disc osteophyte complex with mild central canal stenosis. Mild left neuroforaminal narrowing secondary to uncovertebral and facet hypertrophy. C3-C4: Broad-based disc osteophyte complex with mild central canal stenosis. Mild right and moderate left neuroforaminal narrowing secondary to uncovertebral and facet hypertrophy. C4-C5: Broad-based disc osteophyte complex with mild central canal stenosis. Severe right and moderate left neuroforaminal narrowing secondary to uncovertebral and facet hypertrophy. C5-C6: Broad-based disc osteophyte complex with mild central canal stenosis. Moderate bilateral neuroforaminal narrowing secondary to uncovertebral and facet hypertrophy. C6-C7: Broad-based disc osteophyte complex with moderate central canal stenosis. Moderate bilateral neuroforaminal narrowing secondary to uncovertebral and facet hypertrophy. C7-T1: No significant disc bulge or herniation. No severe spinal canal stenosis. No significant neuroforaminal narrowing. Lungs: Lung apices are normal. Soft tissues: Asymmetric appearance of the piriform sinuses with relative effacement of the left side. Underlying mucosal lesion cannot be excluded. Recommend correlation with direct visualization. CT Chest/Abdomen/Pelvis FINDINGS: Tubes, catheters and devices: Aortic valve prosthesis. Aneurysmal ascending thoracic aorta 5.3 cm greatest diameter without dissection or leak. Limited atherosclerosis. Lungs: See "Pleural spaces" finding. Pleural spaces: No lobar consolidation, pleural effusion or pulmonary edema. Heart: Unremarkable. No cardiomegaly. No pericardial effusion. Coronary arteries: Minimal coronary artery calcifications. Lymph nodes: Unremarkable. No enlarged lymph nodes. Vasculature: See "Tubes, catheters and devices" finding. Bones/joints: Median sternotomy. No acute fracture. No pneumothorax. Soft tissues: Unremarkable CTA head/neck FINDINGS: ANTERIOR CIRCULATION: Right internal carotid artery: Intracranial segment is patent with no significant stenosis or occlusion. No aneurysm. Right middle cerebral artery: No occlusion or significant stenosis. No aneurysm. Right anterior cerebral artery: No occlusion or significant stenosis. No aneurysm. Left internal carotid artery: Intracranial segment is patent with no significant stenosis. No aneurysm. Left middle cerebral artery: There is a short segment near occlusion of the distal most aspect of M1 segment left middle cerebral artery with some preserved filling of the attenuated appearing M2 branching distal to this. Uncertain if this is related to the old infarction, or if there is a new thrombus here. Left anterior cerebral artery: No occlusion or significant stenosis. No aneurysm. POSTERIOR CIRCULATION: Right vertebral artery: No occlusion or significant stenosis. No aneurysm. Left vertebral artery: No occlusion or significant stenosis. No aneurysm. Basilar artery: No occlusion or significant stenosis. No aneurysm. Right posterior cerebral artery: No occlusion or significant stenosis. No aneurysm. Left posterior cerebral artery: There is abrupt occlusion just past the origin left posterior cerebral artery with minimal filling peripheral to this. HEAD: Brain: Encephalomalacia left temporal lobe and basal ganglia and centrum semiovale again evident consistent with a remote ischemic event. Cerebral ventricles: Normal. No ventriculomegaly. Bones: Unremarkable. No acute fracture. Paranasal sinuses: Visualized sinuses are normal. No fluid levels. Mastoid air cells: Visualized mastoids are normal. No mastoid effusion. Soft tissues: Unremarkable. Active Problems: Patient Active Problem List Diagnosis Embolic stroke (HCC) Left sided cerebral hemisphere cerebrovascular accident (HCC) Essential hypertension H/O mitral valve replacement with mechanical valve Mitral leaflet abnormality Other hyperlipidemia Right hemiparesis ([facility] SYSTEM BASED PLAN: Neuro Pain/sedation/psych Previous Left CVA Left M1 occlusion Right hemiparesis -no pain -RASS goal -1 -Q 1 H neuro checks -neurosurgery consulted -neurology consulted -SBP goal <160 -s/p thrombectomy- TICI 3 -propofol for sedation -LTM -CTH with dual energy protocol Cardiac HTN Mitral valve replacement Dyslipidemia -normotensive -goal MAP >65; SBP <160 Respiratory -keeping intubated due to high EBL during thrombectomy -vent SIMV -CXR: No lobar consolidation, pleural effusion or pulmonary edema. -respiratory driven protocol -IS/Flutter -maintain spo2 >92% -sbt in AM GI/Nutri -diet: NPO except meds -bowel regimen: docusate and senna -GI PPX: pepcid -OGT Renal -Cr 1.1 -replace electrolytes as needed -eunatremic -euvolemic -caceres Endo -euglycemic ID No acute issues Heme/Onc Acute blood loss Concern for arterial injury Hematoma near bladder -concerns for arterial injury during stroke thrombectomy. No evidence of injury on aortogram shot during procedure by Dr. Blas -vascular surg consulted -CTA abd/pelvis-showed hematoma near her bladder -DVT PPX: SCDs -q6 cbc -teg -INR MSK -PT/OT when appropriate -turn/position Q2H Lines/Devices -PIV -CVC -A line -caceres Patient discussed with Dr. Rico, attending physician. GLOBAL ISSUES: Analgesia: protocol with control Sedation: Propofol infusion Delirium/Confusion Assessment Method for ICU (CAM-ICU): CAM-ICU negative HOB Elevation: greater than 30 degress Nutrition: NPO except medications DVT Prophylaxis: pneumatic compression devices alone due to chemoprophylaxis contraindication Stress Ulcer Prophylaxis: histamine 2 antagonist Glycemic Control: controlled - not in protocol Central Line Necessity Reviewed: reviewed and needed Caceres: reviewed and needed Disposition: keep in ICU Patient's decisional capacity: does not have capacity to make decisions Communication with Patient/Family: No meeting held. Goals of Care: improve respiratory status, wean respiratory parameters, stabilize hemodynamic status, improve mental status to baseline, and decrease pain and discomfort I have provided critical care diagnostic services for circulatory failure, neurologic failure, respiratory failure, hematologic failure and therapeutic services with volume resuscitation, frequent ventilator adjustments, neurological monitoring and treatment, frequent evaluation and titration of the rapies, application of advanced monitoring technologies, extensive interpretation of multiple databases for this patient on the date referenced above. Time devoted to patient care services described in this note equal: 55 minutes total critical care time exclusive of time spent performing procedures or time spent by another provider or resident. Cosigned by Diomedes Rico MD at 11/24/2024 4:40 AM EDT Associated attestation - Diomedes Rico MD - 11/24/2024 4:40 AM EDT I have reviewed the advanced practitioner's documentation on the date of service referenced in note, and I agree with, and take responsibility for the plan of care. I spent a total of 15 minutes coordinating, documenting, and providing care for this patient excluding time spent in the performance of separately billed services or time spent by another provider/QHP. documented in this encounter Procedure Notes * Severo Moore DO - 11/25/2024 4:14 PM EDTAssociated Order(s): EKG REASON FOR STUDY: Chest pain;Chest pain;Chest pain CONCLUSIONS: Normal sinus rhythm Left ventricular hypertrophy with secondary QRS widening and repolarization abnormality ( R in aVL , [place] product ) left axis deviation Ventricular Rate: 96 Atrial Rate: 96 IA Interval: 184 QRS Duration: 116 QT/QTc: 354/447 ms P-R-T [place]: 4 : -29 : 88 degrees * Rika Maynard DO - 11/25/2024 5:40 AM EDT Electroencephalogram Report [facility] Neuro[facility] Care [facility], [facility] 4th Floor [address] [facility] [address] Name: Tariq Sawant Age: [age] year old Study Start Date/Time: 11/24/2024, 0537 Study End Date/Time: 11/25/2024825 Location: [place] [address]/A Referring Physician: Sergey Vu Clinical Summary: Tariq Zhanna Sawant is a/an 54 year old male undergoing EEG evaluation for seizures Neuroactive Medications: labetalol (Trandate) inj 10 mg Acetaminophen (Tylenol) tab 650 mg atorvaSTATin (Lipitor) tab 40 mg chlorHEXIDINE (Periogard) 0.12 % oral rinse 15 mL dextrose 50% inj 25 mL dextrose 50% inj 50 mL Docusate Sodium (Colace) oral liquid 100 mg glucagon (Glucagen) inj 1 mg Glucose (Glutose 15) 40 % gel 15 g of glucose Glucose (Glutose 15) 40 % gel 30 g of glucose glucose chew tab 16 g insulin aspart (NovoLOG) inj Isolyte-S pH 7.4 infusion Oral Hygiene: Mouth Swab with dentifrice oxygen GAS Sennosides (Senokot) oral syrup 10 mL chlorhexidine gluconate cloth 2 % pad sodium chloride 0.9 % flush central line 10 mL Technical Summary: This digitally acquired electroencephalogram was performed using 21 scalp electrodes in the international 10/20 system placement, with additional scalp, precordial, and other surface electrodes used for electrical referencing and artifact detection. Video monitoring was utilized and reviewed periodically by the physician for electroclinical correlation. Physician access to datawas available throughout the recording. Activation Procedures: Photic stimulation resulted in: no evidence of change from baseline Background: Abnormal. Abnormal. Amplitude: 20-70 (medium). Symmetry: Symmetric Organization: Mildly disorganized Reactivity: Present and reactive to external stimuli Variability: Present with distinct states of arousal Continuity: Continuous. Breach effect: Absent. Generalized slowing: Mild to moderate (Theta predominant). Sleep: Stage 2 sleep was not achieved for this study. EKG: Normal sinus rhythm Interictal Findings: Continuous slow, generalized lateralized left hemisphere Clinical and Electrographic Events: No clinical or electrographic events were recorded. Summary of Findings: This EEG is abnormal Continuous slow, generalized lateralized left hemisphere Comparison to Previous Studies: No previous studies are available for comparison. Diagnostic Significance: This EEG is suggestive of cortical dysfunction in the left hemisphere region. No EEG seizures or epileptiform discharges were recorded. ADDENDUM Report addended to include end files but body of report was not changed. * Donn Melendez MD - 11/24/2024 3:11 AM EDTAssociated Order(s): EKG REASON FOR STUDY: Stroke (HCC) CONCLUSIONS: Normal sinus rhythm Left axis deviation High QRS voltage may be normal variant or due to lve ( R in aVL ) Poor precordial R wave progression Abnormal ECG When compared with ECG of 23-Nov-2024 19:57, Leftward axis is now present Ventricular Rate: 93 Atrial Rate: 93 IA Interval: 178 QRS Duration: 106 QT/QTc: 376/467 ms P-R-T [place]: 45 : -37 : 76 degrees documented in this encounter Consult Notes * Tad Raymond MD - 12/02/2024 1:22 PM EDTAssociated Order(s): REHAB CONSULT IP Physical Medicine & Rehabilitation [address] [id number] Name: Tariq Sawant [place] [facility] A463/B Date: 12/02/2024 Time: 1:22 PM Consulting Service: Critical Care Blue Reason for Consultation: Disposition Planning Admission Date: 11/23/2024 Attending Physician/Provider: Osorio Gilmore MD Primary Care Physician/Provider: Tai Bal PA-C Admitting Diagnosis: Principal Problem: Acute ischemic left MCA stroke (HCC) Active Problems: S/P AVR (aortic valve replacement) History of ischemic left MCA stroke Expressive aphasia On continuous oral anticoagulation Gait abnormality Impaired mobility and ADLs Prosthetic heart valve clot Resolved Problems: Pseudoaneurysm following procedure (HCC) Respiratory failure without hypercapnia (HCC) Subjective HPI: Tariq Sawant is a(n) 54 year old male with PMHx left MCA stroke with residual right hemiparesis, BPH, HTN, mitral valve replacement 2020 on Eliquis, HLD presenting for left MCA distal M1 occlusion s/p mechanical thrombectomy. Patient [facility] 11/23 via EMS after experiencing fall at home with left head strike while on Eliquis. Upon arrival of EMS he had expressive aphasia and indicating severe headache. 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 NSGY evaluated upon arrival to [facility] noting NIHSS 13 recommending emergent OR for thrombectomy (11/24)with Dr. Blas. No TNK due to LKWT (11/22/24) being out of window. TICI 3 achieved (complete recanalization) of M1. Received 1u PRBC intra-op. Post-op admitted to NSICU intubated and sedated. Vascular surgery (11/24) consulted due to NSGY concerns of arterial injury during thrombectomy; CTA reviewed with communication 11/24 that pseudoaneurysm in right groin without active extravasation anddid not require further intervention. Neurology (11/24) consulted - agreed holding Eliquis after CT CAP showed groin hematoma pending MRI. 11/24 Pt passed SBT and extubated. Therapy noting Bud for transfers, ambulation, and bed mobility however mostly ModA-MaxA for upper body self-care and dressing. 11/25 EEG showed no evidence of seizures. Patient seen and evaluated sitting in bedside recliner in room on 2 L nasal cannula O2 breathing comfortably. Receptive and expressive aphasia noted. No Caceres in place at this time. Increased tone noted in right upper extremity with right ankle and plantar flexion. Spoke with clinical care coordinator who stated that he lives alone, and has 2 neighbors who assisted him prior to admission, however, unlikely jayne able to stay at home with him temporarily. Neighbors had reported that he was able to ride an ATV and garden independently prior to admission. Additionally, deficits may have chronic component to it-unclear at this time. 11/28 Interval history: Patient seen and evaluated laying down on bed in room on room air breathing comfortably. Mixed receptive and expressive aphasia. Able to answer yes/no, I don't know, and some names. Alert and oriented to person and place with prompting. Minimal tone RUE. Patient says he may have someone (Danna - friend) able to help him post-discharge, and would like to go to IRF. Denies abdominal pain. Snoring loudly prior to being woken up for examination. Updated physical exam below. 12/02 Interval history: Patient seen and evaluated, he is laying down comfortably in bed, breathing room air. Still significant mixed aphasia. Answers yes, no, I don't know, and his name. Aox2 (believes it's 2003). Still wants to go to IRD. Will appeal today. Updated physical exam below PREVIOUS FUNCTIONAL STATUS: Prior Level of Function Reported by: Patient (11/24/24 135) Ambulation: Ambulatory without device (11/24/24 135) Grooming: Independent (11/24/24 135) Bathing: Independent (11/24/24 [facility]) Dressing: Independent (11/24/24 135) Feeding: Independent (11/24/24 135) Toileting: Independent (11/24/24 135) Meal Prep: Independent (11/24/24 [facility]) Homemaking: Independent (11/24/24 [facility]) Shopping: Independent (11/24/24 [facility]) Home Set-up and Support System: Lives with: Alone (11/24/24 [facility]) Assistance available: Yes (11/24/241422) Dwelling type: Single story home (trailer?) (11/24/24 142) Entry steps: (unclear) (11/24/241422) Inside steps: None (11/24/241422) Bedroom location: 1st floor (11/24/24 [facility]) Bath location: 1st floor full bath (11/24/241422) Assistive Devices Used: Devices at home: No device (11/24/241422) Recent Physical Therapy Assessment: P.T. Bed Mobility Supine-Sit: Supervision (12/01/24 1209) Transfers Sit-Stand: Minimal Assistance (12/01/24 1209) Stand-Sit: Minimal Assistance (12/01/24 1209) Recent Occupational Therapy Assessments: Self Care Feeding: Supervision (Please comment) (11/24/24 1353) Grooming: Supervision (Please comment) (brush teeth and wash face) (12/01/24 1245) Toileting: Minimal Assistance (hygiene in stance) (11/24/24 135) Dressing Upper Body: Supervision (Please comment) (manage gown) (12/01/24 124) Lower Body: Supervision (Please comment) ((close supervision)to occasional contact guard manage socks) (12/01/24 124) Functional Ambulation Assistive Device: No device (RETAIL SECURITY PROFESSIONAL) (12/01/24 124) Distance in feet:: (15 and 10) (12/01/24 124) Level of Assistance: Minimal Assistance (to mod A with chair follow) (12/01/24 124) Bed Mobility Supine-Sit: Supervision (Please comment) (12/01/24 124) OT Transfers Sit-Stand: Minimal Assistance (12/01/24 124) Stand-Sit: Minimal Assistance (12/01/24 124) Toilet: Minimal Assistance (commode) (11/24/24 1353) CURRENT LEVEL OF FUNCTION: Weight Bearing Status: Weight bearing as tolerated (12/01/24 1209) Bed Mobility: Bed Mobility Supine-Sit: Supervision (Please comment) (12/01/24 124) Transfer: OT Transfers Sit-Stand: Minimal Assistance (12/01/24 124) Stand-Sit: Minimal Assistance (12/01/24 124) Toilet: Minimal Assistance (commode) (11/24/24 1353) Ambulation: Functional Ambulation Assistive Device: No device (RETAIL SECURITY PROFESSIONAL) (12/01/24 124) Distance in feet:: (15 and 10) (12/01/24 124) Level of Assistance: Minimal Assistance (to mod A with chair follow) (12/01/24 124) Review of Systems: As per HPI Past Medical History: Diagnosis Date Heart valve replaced by other means Aortic Valve Replacement Sequelae, post-stroke CVA Past Surgical History: Procedure Laterality Date CAROTID (INTERNAL) ARTERY CATHETHER PLACEMENT N/A 11/23/2024 CATHETER PLACEMENT INTERNAL CAROTID ARTERY performed by Peter Blas MD at [place] [facility] CV ECHO, LI INTRAOPERATIVE N/A 11/30/2024 ECHOCARDIOGRAPHY, TRANSESOPHAGEAL; INCLUDING PROBE PLACEMENT, IMAGE ACQUISITION, INTERPRETATION ANDREPORT performed by [facility] at [facility] REPLACEMENT AORTIC VALVE, BYPASS WITH PROSTHETIC VALVE Aortic Valve Replacement VERTEBRAL ARTERY CATHETER PLACEMENT N/A 11/23/2024 CATHETER PLACEMENT VERTEBRAL ARTERY, performed by Peter Blas MD at [place] [facility] Social History Tobacco Use Smoking status: Former Smokeless tobacco: Never Tobacco comments: 1.5 ppk/day, quit November 09 Vaping Use Vaping status: Never Used Substance Use Topics Alcohol use: No Family History Problem Relation Name Age of Onset Neurological Disorder Mother brain aneurysm Review of patient's allergies indicates: Allergen Reactions Bee Venom Cephalosporins hives Penicillin G Current Facility-Administered Medications Medication Dose Route Frequency Provider Warfarin Sodium (Coumadin) tab 10 mg 10 mg Oral QPM 1999 Rika Livingston MD loperamide (Imodium) cap 2 mg 2 mg Oral Q4H PRN Libia Thompson DO ondansetron (Zofran) inj 4 mg 4 mg IV Push Q6H PRN Libia Thompson DO metoprolol succinate XL (toPROL XL) tab 50 mg 50 mg Oral Daily(AM) Jordan Felix DO amLODIPine (Norvasc) tab 5 mg 5 mg Oral Daily(AM) Collette Jimenez MD warfarin check daily dose (PHARMACIST MANAGED) Does Not Apply Daily 1500 Myrna Guevara MD hEParin 1000 UNIT/ML inj 1,400 Units 15 Units/kg (Adjusted) IV Push PRN Jose Vasquez MD hEParin 1000 UNIT/ML inj 2,800 Units 30 Units/kg (Adjusted) IV Push PRN Jose Vasquez MD hEParin 25,000 units in 250 mL (Xa-Cardiac) infusion 0-30 Units/kg/hr (Adjusted) Intravenous Titrate Jose Vasquez MD Polyethylene Glycol 3350 (Miralax) oral powder 17 g 1 Packet Oral Daily(AM) Jose Vasquez MD senna-docusate (Senokot-S) 2 Tablet 2 Tablet Oral BID(AM/PM) Jose Vasquez MD atorvaSTATin (Lipitor) tab 40 mg 40 mg Oral Q 1700 Jose Vasquez MD insulin aspart (NovoLOG) inj Subcutaneous With Meals and HS Jose Vasquez MD tamsulosin (Flomax) cap 0.4 mg 0.4 mg Oral HS Jose Vasquez MD venlafaxine XR (Effexor XR) cap 75 mg 75 mg Oral Daily(AM) Jose Vasquez MD Acetaminophen (Tylenol) tab 650 mg 650 mg Oral Q6H PRN Jose Vasquez MD dextrose 50% inj 25 mL 25 mL IV Push SOBEIDAN Jose Vasquez MD dextrose 50% inj 50 mL 50 mL IV Push PRN Jose Vasquez MD glucagon (Glucagen) inj 1 mg 1 mg Intramuscular PRN Jose Vasquez, MD Glucose (Glutose 15) 40 % gel 15 g of glucose 15 g of glucose Oral Jose Mckay MD Glucose (Glutose 15) 40 % gel 30 g of glucose 30 g of glucose Oral Jose Mckay MD glucose chew tab 16 g 16 g Oral Jose Mckay MD sodium chloride 0.9 % flush central line 10 mL 10 mL IV Push Q8H Jose Vasquez MD Objective PHYSICAL EXAM: BP: 118 mmHg/64 mmHg (12/02/24 100) Pulse: 86 (12/02/24 100) Resp: 17 (12/02/241000) Temp: 37.11 C (12/02/241000) Temp Summary: Temp Min: 37.1 °C (98.8 °F) Max: 37.4 °C (99.3 °F) SpO2: 96 % (12/02/241000) O2 flow rate: 0 L/MIN (12/02/24 0618) Supplemental O2 Delivery: Room Air, None (12/02/241000) Vital Signs Last 24 Hours: BP Min: 105/82 Max: 128/66 Pulse Av.6 Min: 77 Max: 86 Most Recent Temperature Av.2 C Min: 37.11 C Max: 37.39 C Resp Av.3 Min: 17 Max: 20 General: NAD; resting comfortably Respiratory: nonlabored breathing on room air Skin: warm : No Caceres catheter present Psychiatric: appropriate mood MSK/Extremities: RUE elbow PROM just able to achieve 0 degrees extension 2/2 tone. Unable to achieve neutral supination/pronation position. Neurologic: Mental Status & Orientation: awake, alert, orientation limited 2/2 aphasia - receptive and expressive Cranial Nerves: pupils equal, right facial asymmetry, diminished right shoulder shrug, tongue protrudes midline. Motor: LEFT Shoulder 5/5 | Elbow 5/5 | Wrist 5/5 | Fingers 5/5 RIGHT Shoulder 4-/5 | Elbow 4-/5 | Wrist 1/5 | Fingers 0/5 LEFT Hip 5/5 | Knee 5/5 | Ankle 5/5 RIGHT Hip 4/5 | Knee 4/5 | ADF 3/5, APF 0/5. Muscle Tone: increased on elbow flexors, wrist and finger flexors , R ankle flexor tone Sensory: withdraws all 4 extremities to pain BL UE & LE DATA REVIEW: LABS: Recent Results (from the past 24 hours) ECHO, TTE, LIMITED Collection Time: 12/01/24 1:41 PM Result Value Ref Range LEFT VENTRICULAR EJECTION FRACTION 50 % GLUCOSE METER, POINT OF CARE Collection Time: 12/01/24 4:58 PM Result Value Ref Range Glucose - POCT 125 (H) 70 - 120 mg/dL HEPARIN, UNFRACTIONATED Collection Time: 12/01/24 5:52 PM Result Value Ref Range Heparin, Unfractionated 0.46 (H) <0.10 IU/mL GLUCOSE METER, POINT OF CARE Collection Time: 12/01/24 9:07 PM Result Value Ref Range Glucose - POCT 138 (H) 70 - 120 mg/dL HEPARIN, UNFRACTIONATED Collection Time: 12/02/24 12:57 AM Result Value Ref Range Heparin, Unfractionated 0.63 (H) <0.10 IU/mL PHOSPHORUS Collection Time: 12/02/24 5:29 AM Result Value Ref Range Phosphorus 3.4 2.5 - 4.8 mg/dL MAGNESIUM Collection Time: 12/02/24 5:29 AM Result Value Ref Range Magnesium 1.8 1.5 - 2.6 mg/dL BASIC METABOLIC PANEL Collection Time: 12/02/24 5:29 AM Result Value Ref Range BUN 15 6 - 20 mg/dL CREATININE 1.2 0.6 - 1.2 mg/dL EGFR 73 >=60 mL/min SODIUM 137 135 - 146 mmol/L POTASSIUM 4.0 3.5 - 5.1 mmol/L CHLORIDE 104 98 - 107 mmol/L CO2 23 22 - 32 mmol/L ANION GAP 10 7 - 15 mmol/L GLUCOSE 136 (H) 70 - 120 mg/dL CALCIUM 8.4 8.4 - 10.2 mg/dL CBC Collection Time: 12/02/24 5:29 AM Result Value Ref Range WBC 8.09 4.00 - 10.80 K/uL RBC 3.52 4.50 - 5.25 M/uL HGB 10.4 (L) 14.0 - 16.8 g/dL HCT 32.3 (L) 40.0 - 48.4 % MCV 91.8 82.0 - 99.5 fL MCH 29.5 27.0 - 34.0 pg MCHC 32.2 32.0 - 36.0 g/dL RDW 14.6 11.5 - 15.5 % PLT 259 140 - 400 K/uL MPV 11.2 6.6 - 11.1 fL nRBCs 0 <=0 /100 WBCs PT INR Collection Time: 12/02/24 5:29 AM Result Value Ref Range Prothrombin Time 15.7 (H) 11.6 - 15.2 seconds INR 1.2 0.8 - 1.2 HEPARIN, UNFRACTIONATED Collection Time: 12/02/24 7:23 AM Result Value Ref Range Heparin, Unfractionated 0.46 (H) <0.10 IU/mL GLUCOSE METER, POINT OF CARE Collection Time: 12/02/24 7:49 AM Result Value Ref Range Glucose - POCT 124 (H) 70 - 120 mg/dL GLUCOSE METER, POINT OF CARE Collection Time: 12/02/24 11:51 AM Result Value Ref Range Glucose - POCT 180 (H) 70 - 120 mg/dL ASSESSMENT: Principal Problem: Acute ischemic left MCA stroke (HCC) (POA: Yes) Active Problems: S/P AVR (aortic valve replacement) (POA: Yes) History of ischemic left MCA stroke (POA: Yes) Expressive aphasia (POA: Yes) On continuous oral anticoagulation (POA: Yes) Gait abnormality (POA: Yes) Impaired mobility and ADLs (POA: Yes) Prosthetic heart valve clot (POA: Unknown) POA = Present On Admission Tariq Sawant is a(n) 54 year old male PMHx CVA 2004 with residual right hemiparesis who presents with mobility and ADL deficits secondary to acute left MCA stroke s/p mechanical thrombectomy (11/24/24 w/ Dr. Blas). Dr. Shen: "Patient would benefit and be appropriate for an IRF admission. 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 Per CM, it is very unlikely the neighbors would be willing to stay over with Tariq or having Tariq stay with them. The transition from supervision to independent assistance levels can be challenging for some patients, and there is a chance the patient would need to eventually discharge to a SNF after IRF depending on his progress. It would be encouraged that his neighbors have verbal communication or visit him near daily upon initially returning home. At this time he is on no medications to address his underlying tone, which may help improve his function. It will be highly recommended that the patient follows up with PM&R outpatient to address his right upper and lower extremity spasticity." PLAN: Disposition Recommendation: Other - IRF Medical Complexity: Patient does require physician oversight at least 3 times per week. Patient does require 24/7 registered nursing care. Patient does require at least 2 therapeutic disciplines of PT, OT, and/or ADV[employer]ED MANUFACTURING CONSULTANT services for at least3 hours per day, 5 days per week in order to maximize functional independence in the safest manner. Patient is expected to achieve individualized functional improvement goals within the following reasonable timeframe - 2 Weeks. There is may be a reasonable expectation patient will discharge to the community post-acute rehabilitation admission. Patient is expected to be able to follow commands, tolerate, actively & willingly participate at least 3 hours of therapy per day for at least 5 days per week in their current clinical condition. Patient's Insurance: [employer] PPO Recommend Addressing Prior to Discharge: R PRAFO to prevent development of contracture Referral to PM&R outpatient to manage spasticity Consider ordering post-void residual scans q8H x1 day given risk of urinary retention 2/2 neurogenic bladder. If no contraindications, consider initiating baclofen 10mg QHS; titrating up to TID as tolerated for RUE and RLE spasticity as a starting dose. Highly recommend patient follows up with outpatient PM&R for spasticity management - please include in DC summary to PCP. 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 Please contact service via [employer] Role for further questions or concerns: PMRRESIDENTCONSULTS Patient discussed with the attending physician Dr. Pravin MD. Cosigned by Mason Costello MD at 12/02/2024 10:45 PM EDT Associated attestation - Mason Costello MD - 12/02/2024 10:45 PM EDT I saw and evaluated the patient today. I have reviewed the resident/fellow physician note and agree. 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 Per EMS, he fell off his couch 11/22/2024 and hit the left side of his head. For EMS and the ED he was aphasic, only able to answer yes/no questions. LKW was 11/22/2024, unsure of a time. He complained of a headache on arrival and has RUE weakness at baseline. CTH showed chronic left love injury but no prior comparison available. Trauma scans negative for traumatic injury. CTA head neck showed encephalomalacia and cortical atrophy of the L hemisphere consistent with prior stroke; there is no evidence of acute ischemia,hemorrhage, or mass effect. There is a possible subocclusive thrombus at the distal LM1 segment of unclear acuity in addition to abrupt cutoff at the left P1 segment. Distal contrast opacification ofMCA vessels are potentially delayed but otherwise preserved. Lactate also elevated so there is a concern for seizure. Patient being transferred [place] [facility] [place] with neurosurgery and LTM. Upon arrival to the NSICU, he remained intubated and sedated from his procedure. Intra op, he received 1 unit prbc and 2 units of cryo." Past Medical History: Diagnosis Date Heart valve replaced by other means Aortic Valve Replacement Sequelae, post-stroke CVA Past Surgical History: Procedure Laterality Date CAROTID (INTERNAL) ARTERY CATHETHER PLACEMENT N/A 11/23/2024 CATHETER PLACEMENT INTERNAL CAROTID ARTERY performed by Peter Blas MD at [place] [facility] [place]PL[place] AORTIC VALVE, BYPASS WITH PROSTHETIC VALVE Aortic Valve Replacement VERTEBRAL ARTERY CATHETER PLACEMENT N/A 11/23/2024 CATHETER PLACEMENT VERTEBRAL ARTERY, performed by Peter Blas MD at [place] [facility] Imaging: MRI BRAIN WITHOUT CONTRAST 11/26/24 "IMPRESSION 1. Small acute left MCA infarct. No acute hemorrhagic transformation or herniation. 2. Additional small to moderate chronic left MCA territory infarct. Other chronic scattered supratentorial and infratentorial multi territorial infarcts. 3. Recommend short interval non-contrast CT head follow-up." Educational History: Did not obtain Prior Functional Level: Reported by Patient Money Management is done by: Did not obtain Homemaking: Did not obtain Shopping: Did not obtain Occupation: Did not obtain Barriers to Learning: None Known and Medical Status Hearing Acuity: Deferred Best Learning Method: Auditory Patient/Family Goal(s): Improve speech Pain: No Complaints of Pain Assessment / Diagnosis: Pt presents with moderate-severe expressive language deficits and mild-moderate receptive language deficits. Pt stimulable with phonemic cues. Unable to complete full cognitive-evaluation d/t severity of language impairments. Suspect apraxia of speech, as inconsistencies noted between repetitions, with groping upon attempts to repeat clinician Pt with hx of prior CVA; however, per chart review, new onset of aphasia following fall from couch. Cognitive-Communication Rehab Potential: Good RECOMMENDATIONS / TREATMENT PLAN: Objaiu-Txoyqpnq-Ujqnwzoqx-Communication Therapy: Indicated for length of hospital stay Communication Goals: Pt will name common objects with 80% accuracy, given min clinician cues. Pt will follow simple commands with 80% accuracy, given min clinician cues. Pt will answer complex y/n questions with 80% accuracy when provided with min clinician cues. Continue cognitive evaluation and adjust goals as appropriate. ANTICIPATED FREQUENCY (ON EVAL): 1-3 times per week PATIENT/FAMILY EDUCATION: Topic(s): Role of speech tx and plan of care following results of assessment. Method of Education: Verbal discussion and explanation provided to pt: verbalized understanding andor agreement of this information Additional Recommendations: n/a Evaluations Results: Speech-Language Skills AUDITORY COMPREHENSION: Yes/No Questions WFL Simple; Impaired Complex Body Part Identification Impaired Right/Left Discrimination: Impaired Commands Simple Impaired Complex Impaired Comprehension Words Within normal limits Sentences Impaired Paragraphs Did not test Conversation Impaired VERBAL EXPRESSION: Naming Responsive Impaired Confrontation Impaired Repetition Impaired Automatic Speech Impaired Spontaneous Utterances Words Impaired Sentences Impaired Conversation Impaired Paraphasias/Jargon not present Gestures/Augmentative Did not test Perseveration present READING COMPREHENSION: Oral: Words Impaired Sentences Did not test Paragraphs Did not test Comprehension Words Within normal limits Sentences Did not test Paragraphs Did not test WRITTEN EXPRESSION: Biographical Information Within normal limits (name) Copying Within normal limits Spontaneous: Words Impaired Sentences Did not test Narrative Did not test SPEECH MECHANISM: Oral Motor Within normal limits Speech Intelligibility Within normal limits Dysarthria not present Apraxia Oral suspected Verbal not present LEVEL OF ALERTNESS: alert/focused COGNITIVE-COMMUNICATION SKILLS: ATTENTION/CONCENTRATION: Sustained (1:1 environment) Within normal limits Selective with distractions Within normal limits Alternating between tasks Did not test Divided between tasks Did not test MEMORY: Immediate Memory Within normal limits Short Term Memory: Daily Events/Activities Did not test Novel Information Did not test Delayed memory Did not test Halfway Memory Did not test PROBLEM SOLVING/REASONING: Verbal Problem Solving Did not test Functional Problem Solving: Simple Within normal limits Complex Did not test Functional Math: Math Calculations Did not test Time Management Impaired and Did not test Money Management Did not test Abstract Reasoning Did not test Deficit Reasoning Did not test Safety Awareness Within normal limits VISUAL PERCEPTION: Spatial Organization Did not test Distribution of Attention Did not test Written Organization Within normal limits ORIENTATION: Person Within normal limits Place Within normal limits Time Did not test Situation Within normal limits EXECUTIVE FUNCTIONS: Initiation Within normal limits Organization Did not test Planning/Decision Making Did not test Self Monitoring Within normal limits Self Correction Within normal limits BEHAVIORAL OBSERVATIONS NOTED: WNL * Catherine Pablo SLP - 12/01/2024 9:14 AM EDTAssociated Order(s): ADULT SPEECH THERAPY CONSULT IP (ACUTE CARE REHAB) CLINICAL BEDSIDE SWALLOW EVALUATION - Speech-Language Pathology [address] [id number] Name: Tariq Sawant [place] [facility] Date: 12/01/2024 Time: 9:14 AM Patient Status: Inpatient Insurance: Payor: HUMANA MEDICARE ADVANTAGE / Plan: HUMANA CHOICE PPO / Product Type: *No Product type* / GENERAL INFORMATION: Admission Date: 11/23/2024 Referring Physician: Myrna Guevara MD Pertinent Medical History: Per Epic H&P 11/24/24 "Tariq Sawant is a 54 year old with a PMHx of 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 Per EMS, he fell off his couch 11/22/2024 and hit the left side of his head. For EMS and the ED he was aphasic, only able to answer yes/no questions. LKW was 11/22/2024, unsure of a time. He complained of aheadache on arrival and has RUE weakness at baseline. CTH showed chronic left love injury but no prior comparison available. Trauma scans negative for traumatic injury. CTA head neck showed encephalomalacia and cortical atrophy of the L hemisphere consistent with prior stroke; there is no evidence of acute ischemia, hemorrhage, or mass effect. There is a possible subocclusive thrombus at the distal LM1 segment of unclear acuity in addition to abrupt cutoff at the left P1 segment. Distal contrast opacification of MCA vessels are potentially delayed but otherwise preserved. Lactate also elevated so there is a concern for seizure. Patient being transferred to [facility] [place]SA with neurosurgery and LTM. Upon arrival to the NSICU, he remained intubated and sedated from his procedure. Intra op, he received 1 unit prbc and 2 units of cryo." Past Medical History: Diagnosis Date Heart valve replaced by other means Aortic Valve Replacement Sequelae, post-stroke CVA Past Surgical History: Procedure Laterality Date CAROTID (INTERNAL) ARTERY CATHETHER PLACEMENT N/A 11/23/2024 CATHETER PLACEMENT INTERNAL CAROTID ARTERY performed by Peter Blas MD at [place] [facility] [place] AORTIC VALVE, BYPASS WITH PROSTHETIC VALVE Aortic Valve Replacement VERTEBRAL ARTERY CATHETER PLACEMENT N/A 11/23/2024 CATHETER PLACEMENT VERTEBRAL ARTERY, performed by Peter Blas MD at [place] [facility] Imaging: MRI BRAIN WITHOUT CONTRAST 11/26/24 "IMPRESSION 1. Small acute left MCA infarct. No acute hemorrhagic transformation or herniation. 2. Additional small to moderate chronic left MCA territory infarct. Other chronic scattered supratentorial and infratentorial multi territorial infarcts. 3. Recommend short interval non-contrast CT head follow-up." Xr chest 1 view 11/29/24 "IMPRESSION No acute disease is seen in the chest." Current Diet/Dysphagia History: Pt currently NPO after 2400 except meds. Per discussion with Dr. Jimenez, pt OK for PO trials this date. Pt denies hx of dysphagia, unexpected weight loss, hx of dysphagia. Cognitive-Communication: Pt remained awake and alert. Pt followed commands with min assist. Expressive language deficits noted. Inconsistencies with y/n accuracy. Barriers to Learning: Medical Status Hearing Acuity: Deferred Best Learning Method: Auditory Pain: No complaints of pain ORAL MECHANISM EXAM: Facial Symmetry WFL Labial Function WFL Lingual Function WFL Velar Function WFL Dentition: Natural PROTECTIVE MECHANISMS: Volitional Swallow Did not test Volitional Throat Clearing Did not test Volitional Cough Did not test Vocal Quality Within normal limits Tracheostomy Tube: Not Present Ventilator Status: Not Applicable SWALLOWING FUNCTION: ORAL PREPARATION PHASE: Puree (IDDSI Level 4): WFL Soft and Bite-Sized (IDDSI Level 6): WFL Regular (IDDSI Level 7): WFL Thin Liquid (IDDSI Level 0): WFL ORAL PHASE: Puree (IDDSI Level 4): WFL Soft and Bite-Sized (IDDSI Level 6): WFL Regular (IDDSI Level 7): WFL Thin Liquid (IDDSI Level 0): WFL PHARYNGEAL PHASE Puree (IDDSI Level 4): WFL Soft and Bite-Sized (IDDSI Level 6): WFL Regular (IDDSI Level 7): WFL Thin Liquid (IDDSI Level 0): WFL RECOMMENDATIONS/PLAN: Videofluoroscopy: Not indicated Diet Level: Regular Liquid Level: Thin Presentation of Medication: As tolerated Positioning: Seated with 90 degree hip flexion Level of Supervision: None Use of Straws: allowed Compensatory Techniques to be Utilized During PO Intake: Small Bites/Sips, Alternate Solids & Liquids and Slow Rate of Intake Compensatory Strategies Utilized: as above Additional findings: N/A ANTICIPATED FREQUENCY (ON EVAL): Not indicated DIAGNOSIS/IMPRESSIONS: Diagnosis/Impressions: Oral phase WFL. Pharyngeal phase dysphagia not suspected 2/2 absence of overt s/sx of aspiration and/or distress. Rehab Potential: N/A TREATMENT PLAN: Swallowing Treatment: Not Indicated Treatment Goals: N/A Additional Recommendations: If s/sx of aspiration and/or distress are appreciated, please downgradeas nsg safety measure, and re-consult ADV[employer]ED MANUFACTURING CONSULTANT services. The above information was discussed with the patient/family. Yes The patient/family was in Agreement * Jordan Felix, - 11/28/2024 3:41 PM EDTAssociated Order(s): CARDIOLOGY CONSULT IP CONSULT - Cardiology [address] [id number] Name: Tariq Sawant [place] [facility] Date: 11/28/2024 Time: 3:41 PM REQUESTING SERVICE: Neurology REASON FOR CONSULT: "Pt s/p cardioembolic stroke (he was on Eliquis with mechanical aortic valve). He has mechanical valve since 1998 with new severe prosthetic stenosis and enlarging aortic aneurysm. Seen by CT surgery, needs cardiac workup for possible combined surgery. " HPI: 54 YO M admitted with left MCA stroke s/p mechanical thrombectomy c/b R groin pseudoaneurysm. Cardiology has been consulted for guidance on further evaluation for mechanical aortic valve stenosis. PMH includes: Mechanical aortic valve 1998 on apixaban History of left MCA CVA (2004 with residual right side hemiparesis) Dyslipidemia HTN Borderline class 3 obesity (Body mass index is 39.9 kg/m².) Patient presented with expressive aphasia after a fall with head strike. CTA showed left MCA subocclusive thrombus. Underwent mechanical thrombectomy. MRI confirmed acute left MCA stroke with moderate infarct in the left temporal left frontal lobes. TTE raised concern for severe mechanical aortic valve prosthetic stenosis. Patient has expressive aphasia that limits the utility of this interview. He does not know why he was on apixaban instead of warfarin for his mechanical valve. Denies dyspnea on exertion prior to admission. Denies any episodes of chest pain. Denies complaints at this time LI was attempted today but unsuccessful due to patient gagging with pooling of secretions after receiving sedation (total midazolam 3.5 mg and total fentanyl 150 mg) PAST MEDICAL HISTORY: Past Medical History: Diagnosis Date Heart valve replaced by other means Aortic Valve Replacement Sequelae, post-stroke CVA PAST SURGICAL HISTORY: Past Surgical History: Procedure Laterality Date CAROTID (INTERNAL) ARTERY CATHETHER PLACEMENT N/A 11/23/2024 CATHETER PLACEMENT INTERNAL CAROTID ARTERY performed by Peter Blas MD at [facility] REPLACEMENT AORTIC VALVE, BYPASS WITH PROSTHETIC VALVE Aortic Valve Replacement VERTEBRAL ARTERY CATHETER PLACEMENT N/A 11/23/2024 CATHETER PLACEMENT VERTEBRAL ARTERY, performed by Peter Blas MD [place] [facility] FAMILY HISTORY: Family History Problem Relation Name Age of Onset Neurological Disorder Mother brain aneurysm SOCIAL HISTORY: Social History Tobacco Use Smoking status: Former Smokeless tobacco: Never Tobacco comments: 1.5 ppk/day, quit November 09 Vaping Use Vaping status: Never Used Substance Use Topics Alcohol use: No Drug use: Not on file ALLERGIES: Bee venom, Cephalosporins, and Penicillin g ROS: Reviewed and otherwise negative aside from as stated in HPI PHYSICAL EXAMINATION: Most Recent Vital Signs: BP: 114 mmHg/84 mmHg (11/28/24808) Pulse: 86 (11/28/24808) Resp: 20 (11/28/24605) Temp: 37.11 C (11/28/24605) Temp Summary: Temp Min: 37.1 °C (98.8 °F) Max: 37.4 °C (99.3 °F) SpO2: 97 % (11/28/24605) O2 flow rate: 0 L/MIN (11/28/24808) Supplemental O2 Delivery: Room Air, None (11/28/24808) Vital Signs Last 24 Hours: Systolic BP: Most Recent Systolic BP Av.1 mmHg Min: 111 mmHg Max: 159 mmHg Temperature: Most Recent Temperature Av.2 C Min: 37.11 C Max: 37.39 C Pulse: Pulse Av.3 Min: 86 Max: 101 Respirations: Resp Av.4 Min: 14 Max: 24 SpO2: SpO2 Av.7 % Min: 92 % Max: 100 % General Exam: General: No apparent distress Head and face: atraumatic, normocephalic Eyes: normal lids, nonicteric sclera, no conjunctival injection Respiratory: Non-labored breathing, CTAB, no adventitious breath sounds Cardiovascular: regular rate and rhythm, S1 and S2 appreciated, no r/g/m, normal JVP Abdomen: Soft Peripheral vascular: cap refill <2 seconds, no LE edema, Radial 2/4 Skin: warm and well perfused Mental status: Alert Language: expressive aphasia LABS: Reviewed EMR STUDIES: Reviewed EMR TTE 11/25/24 Interpretation Summary The primary indication after review was deemed appropriate and the examination was performed. The qualitative LV ejection fraction is 50-54% (normal). There is a moderate sized apical wall motion abnormality with hypokinesis to akinesis of the segments. The left ventricular diastolic function is mildly abnormal (grade I). The aortic root and proximal ascending aorta are severely enlarged. There is an aortic valve mechanical prosthesis present. There is severe aortic valve prosthesis stenosis. Negative Bubble Study. No ASD or PFO. ECG 11/25/24: Normal sinus rhythm at 96 beats per minute, left axis deviation, LVH some secondary QRS widening and repolarization abnormality. 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 Cardiac Meds: Amlodipine 10 Benazepril 20 Apixaban 5 Metoprolol succinate 50 Simvastatin 20 Active Cardiac Meds: Heparin infusion Amlodipine 10 Atorvastatin 40 Metoprolol tartrate 25 twice daily IMPRESSION and RECOMMENDATIONS: Principal Problem: Acute ischemic left MCA stroke (HCC) (POA: Yes) Active Problems: S/P AVR (aortic valve replacement) (POA: Yes) History of ischemic left MCA stroke (POA: Yes) Expressive aphasia (POA: Yes) On continuous oral anticoagulation (POA: Yes) Pseudoaneurysm following procedure (HCC) (POA: Clinically Undetermined) Gait abnormality (POA: Yes) Impaired mobility and ADLs (POA: Yes) Resolved Problems: Respiratory failure without hypercapnia (HCC) (POA: Unknown) POA = Present On Admission 54 year old M admitted with recurrent acute left MCA stroke. 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 Cardiology consulted for recommendations on additional evaluation for possible redoAVR from mechanical prosthesis stenosis and thoracic aortic aneurysm repair. The patient is on apixa ban for reasons that are not documented in our EMR. Patient was unable to explain why he was on apixaban over warfarin but the exam was limited due to his expressive aphasia. Being on apixaban more than likely lead to valve thrombus formation. There are no outpatient notes from Cardiology or cardiac surgery available in our EMR since 2019 and even that note is not available for review. Patient underwent transesophageal echocardiogram attempt on 11/28/2024 but it was unsuccessful due to gagging during the procedure despite sedation. The patient is euvolemic at this time and denies any symptomsof symptomatic severe aortic prosthetic stenosis prior to admission. Discussed the case with Cardiac surgery who determined that there would be no plans for surgery this admission regardless of the outcome of the evaluation. Reasonable to pursue LI under anesthesia to further characterize the valve. However, coronary angiography presents an unnecessary risk in the immediate post stroke recovery period due to risk for recurrent stroke and the fact that it would not knife changer during thishospital course. 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 Tentative for 11/30/24 Order warfarin per pharmacy to get the ball moving towards therapeutic levels Bridge with warfarin or LMWH OP coronary angiogram TBD. 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 Can do 12.5 BID for 2-3days and then permanently D/C OP general cardiology f/u in 2-4 weeks Pt can stay on neurology service given no plans for valve intervention this admission Pt was seen, examined, and discussed with attending physician Dr. Atwood. Please see final attestation for any additional recommendations. This chart was completed in part utilizing [employer] Speech Voice Recognition Software. Grammatical errors, random word insertions, pronoun errors, and incomplete sentences are an occasional consequence of this system due to software limitations, ambient noise, and hardware issues. Any formal questions or concerns about the content, text, or information contained within the body of this dictation should be directly addressed to the physician for clarification. Jordan Felix DO Cardiovascular Disease Fellow 11/28/2024 3:41 PM on Cosigned by Rivka Atwood DO at 12/01/2024 5:41 PM EDT Associated attestation - Rivka Atwood DO - 12/01/2024 5:41 PM EDT I saw and evaluated the patient 11/28/2024. I have reviewed the resident/fellow physician note and agree. I spent a total of 50 minutes coordinating, documenting, and providing care for this patient excluding time spent in the performance of separately billed services or time spent by another provider/QHP. * Amanda Block CRNP - 11/27/2024 3:03 PM EDTAssociated Order(s): CARDIAC SURGERY CONSULT IP CONSULT - CARDIAC SURGERY [facility] [id number] Name: Tariq Sawant [place] [facility] Date: 11/27/2024 Time: 3:04 PM REFERRING PHYSICIAN: Rosita Mishra DO PCP: Tai Bal PA-C FORM PRESSER: no recent visits outpatient REQUESTING SERVICE: neurology REASON FOR CONSULT: Patient with cardioembolic stroke in the setting of DOAC use with mechanical aortic valve. Found to have severe prosthetic stenosis and ascending aorta dilation to 5.3 cm. Please assess for further workup and possible intervention. HPI: Tariq Sawant is a 54 year old male with a pmhx significant for prior L MCA in 2004 with residual right sided hemiparesis, AVR in [address] Jose mechanical, who presented to ER at [facility] with stroke symptoms after falling off of sofa and hitting head - then complained of severe head ache and became aphasic. CTA showed L MCA occlusion so he was emergently transferred to [facility] for intervention. On 11/23 into early hours of 11/24, he underwent mechanical thrombectomy of left MCA. He was found to have pseudoaneurysm of R groin and vascular surgery is following. He was extubated later on 11/24. He was able to be downgraded to floor management. He is responsive and following commands selectively and has expressive aphasia. He is able to answer yes or no questions but not able to elaborate much further. Of note, he was on eliquis, not coumadin, for mechanical AVR. Echo showed severe stenosis of aortic valve. Left atrium severely enlarged. He was also found to have a 5.3cm ascending aorta on chest CT 11/23 He reports he does not regularly follow with cardiology any longer. He lives alone, but "Danna" and someone live close by. Says he is not sure if he had shortness of breath, edema, or chest pain prior to this admission Most recent echo we have is from 2019 and shows normal aortic valve function Remains weak on right side with facial droop. He says he is unsure if he has been up out of bed Patient has history of chest pain/angina: No Patient has history of SOB/TRAN: No Patient has syncope/presyncope: No Presentation associated with endocarditis/bacteremia: No Ritchie Heart Failure Classification: n/a ALLERGIES: Bee venom, Cephalosporins, and Penicillin g PAST MEDICAL HISTORY: Past Medical History: Diagnosis Date Heart valve replaced by other means Aortic Valve Replacement Sequelae, post-stroke CVA PAST SURGICAL HISTORY: Past Surgical History: Procedure Laterality Date CAROTID (INTERNAL) ARTERY CATHETHER PLACEMENT N/A 11/23/2024 CATHETER PLACEMENT INTERNAL CAROTID ARTERY performed by Peter Blas MD at [place] [facility] REPLACEMENT AORTIC VALVE, BYPASS WITH PROSTHETIC VALVE Aortic Valve Replacement VERTEBRAL ARTERY CATHETER PLACEMENT N/A 11/23/2024 CATHETER PLACEMENT VERTEBRAL ARTERY, performed by Peter Blas MD at [place] [facility] Hx of vein harvest or stripping?: unknown SOCIAL HISTORY: Social History Tobacco Use Smoking status: Former Smokeless tobacco: Never Tobacco comments: 1.5 ppk/day, quit November 09 Vaping Use Vaping status: Never Used Substance Use Topics Alcohol use: No Drug use: Not on file FAMILY HISTORY: Family History Problem Relation Name Age of Onset Neurological Disorder Mother brain aneurysm REVIEW OF SYSTEMS: Limited to questions asked in HPI due to expressive aphasia CARDIOTHORACIC COMPLETE PHYSICAL EXAM: Most Recent Vital Signs: BP: 125 mmHg/87 mmHg (11/27/24 1500) Pulse: 89 (11/27/24 1500) Resp: 18 (11/27/24 1500) Temp: 37.22 C (11/27/241499) Temp Summary: Temp Min: 36.8 °C (98.2 °F) Max: 37.7 °C (99.9 °F) SpO2: 92 % (11/27/24 1500) O2 flow rate: 2 L/MIN (11/26/24 0600) Supplemental O2 Delivery: Room Air, None (11/27/24 1500) PHYSICAL EXAM: General: no acute distress Teeth: teeth present without obvious periodontal disease Neck: normal jugular venous pulse Chest: normal shape and normal respiratory effort Lungs: lungs clear to auscultation Cardiac Exam: regular rate & rhythm + murmur Pulses: The following pulses are normal: dorsalis pedis pulses Abdomen: abdomen soft Musculoskeletal: no joint inflammation Extremities: no edema and no cyanosis Neuro: expressive aphasia, normal strength on left side, right side weak LABS/STUDIES: Echo 11/25/2024 Interpretation Summary The primary indication after review was deemed appropriate and the examination was performed. The qualitative LV ejection fraction is 50-54% (normal). There is a moderate sized apical wall motion abnormality with hypokinesis to akinesis of the segments. The left ventricular diastolic function is mildly abnormal (grade I). The aortic root and proximal ascending aorta are severely enlarged. There is an aortic valve mechanical prosthesis present. There is severe aortic valve prosthesis stenosis. Negative Bubble Study. No ASD or PFO. Left Ventricle The left ventricle was adequately visualized. The qualitative LV ejection fraction is 50-54% (normal). The left ventricular cavity size is normal. The LV wall thickness is borderline increased (concentric). There is no left ventricularmural thrombus. Right Ventricle The right ventricular systolic function is normal as assessed by tricuspid annular plane systolic excursion (TAPSE) (normal >1.7 cm). The right ventricle is inadequately visualized. Atria The left atrium is severely enlarged (>48 ml/m^2,). The right atrium is enlarged (> 18 cm^2). Diastolic Function The left ventricular diastolic function is mildly abnormal (grade I). Aortic Valve There is an aortic valve mechanical prosthesis present. There is severe aortic valve prosthesis stenosis, Significant aortic valve prosthesis regurgitation is absent. Mitral Valve There is mild mitral annular calcification. The mitral valve leaflets are mildly calcified. The mitral valve chordae are focally calcified. Mitral stenosis is absent. Significant mitral regurgitation is absent. Tricuspid Valve The tricuspid valve is inadequately visualized. The Doppler exam is adequate to exclude tricuspid stenosis. Tricuspid stenosis is absent. Mild tricuspid regurgitation is present. Pulmonary Valve The pulmonary valve is inadequately visualized but the Doppler data is adequate for interpretation.. Pulmonic stenosis is absent. There is mild pulmonary regurgitation. Pericardium No pericardial effusion is noted. Vessels The aortic root and proximal ascending aorta are severely enlarged. The inferior vena cava is normal sized. Septae The interatrial septum is intact without interatrial shunt, atrial septal defect, or patent foramenovale. There is no ventricular septal defect. Hemodynamics Normal IVC size and collapsability with inspiration indicates a normal right atrial pressure of 3 mmHg. There is no evidence of pulmonary hypertension. 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, AVR in [address] Jose mechanical, with severe stenosis of aortic valve, ascending aneurysm, and L MCA CVA s/p thrombectomy PLAN: possible that his mechanical valve is obstructed by thrombus given inadequate anticoagulationand stroke presentation Agree with heparin drip Recommend checking blood cultures to rule out infectious process (less likely) and LI for further investigation of aortic valve Surgeon to see in AM PAULA Rivera Cosigned by Lance Pennington MD at 11/28/2024 8:41 AM EDT Associated attestation - Lance Pennington MD - 11/28/2024 8:41 AM EDT I have reviewed the advanced practitioner's documentation on the date of service referenced in note, and I agree with, and take responsibility for the plan of care. I spent a total of 50 minutes coordinating, documenting, and providing care for this patient excluding time spent in the performance of separately billed services or time spent by another provider/QHP. 54y M with history of mechanical AVR (1998, on Eliquis) and prior L MCA CVA (2004, with residual R weakness). He presented after falling off the couch and having a headache with new aphasia. Found tohave an acute L MCA occlusion on CT imaging and was transferred to [facility] and underwent mechanical thrombectomy with temple of L MCA flow. Noted to have a R groin pseudoaneurysm post-procedure. He has recovered well from this and was extubated and transferred to the floor. Echo completed the following day with concern for severe prosthetic aortic valvestenosis, possibly secondary to thrombus given embolic stroke on alternative anticoagulation for his mechanical valve. He also has a 5.3 cm ascending aortic aneurysm on CT chest done in the ED. Regarding his prosthetic valve stenosis and possible thrombus, would recommend evaluation with LI to better characterize the valve and burden of thrombus. He would ultimately need redo sternotomy for aortic valve replacement and ascending aortic replacement, which is certainly increased risk in the setti ng of acute and chronic ischemic strokes. 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 Lance Pennington MD * Patience Sky MSW - 11/25/2024 12:18 PM EDTAssociated Order(s): CARE MANAGEMENT CONSULT IP Please see ancillary notes. CM to continue to follow throughout hospitalization. Thanks * Kathy Shen DO - 11/25/2024 8:35 AM EDTAssociated Order(s): REHAB CONSULT IP Physical Medicine & Rehabilitation [facility] [id number] Name: Tariq Sawant Location: [facility] A443/A Date: 11/25/2024 Time: 8:45 AM Consulting Service: Critical Care Blue Reason for Consultation: Disposition Planning Admission Date: 11/23/2024 Attending Physician/Provider: Osorio Gilmore MD Primary Care Physician/Provider: Tai Bal PA-C Admitting Diagnosis: Active Problems: Acute ischemic left MCA stroke (HCC) History of ischemic left MCA stroke Expressive aphasia On continuous oral anticoagulation Pseudoaneurysm following procedure (HCC) Resolved Problems: * No resolved hospital problems. * Subjective HPI: Tariq Sawant is a(n) 54 year old male with PMHx left MCA stroke with residual right hemiparesis, BPH, HTN, mitral valve replacement 2020 on Eliquis, HLD presenting for left MCA distal M1 occlusion s/p mechanical thrombectomy. Patient presented to [facility] 11/23 via EMS after experiencing fall at home with left head strike while on Eliquis. Upon arrival of EMS he had expressive aphasia and indicating severe headache. 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 NSGY evaluated upon arrival to [facility] noting NIHSS 13 recommending emergent OR for thrombectomy (11/24)with Dr. Blas. No TNK due to LKWT (11/22/24) being out of window. TICI 3 achieved (complete recanalization) of M1. Received 1u PRBC intra-op. Post-op admitted to NSICU intubated and sedated. Vascular surgery (11/24) consulted due to NSGY concerns of arterial injury during thrombectomy; CTA reviewed with communication 11/24 that pseudoaneurysm in right groin without active extravasation anddid not require further intervention. Neurology (11/24) consulted - agreed holding Eliquis after CT CAP showed groin hematoma pending MRI. 11/24 Pt passed SBT and extubated. Therapy noting Bud for transfers, ambulation, and bed mobility however mostly ModA-MaxA for upper body self-care and dressing. 11/25 EEG showed no evidence of seizures. Patient seen and evaluated sitting in bedside recliner in room on 2 L nasal cannula O2 breathing comfortably. Receptive and expressive aphasia noted. No Caceres in place at this time. Increased tone noted in right upper extremity with right ankle and plantar flexion. Spoke with clinical care coordinator who stated that he lives alone, and has 2 neighbors who assisted him prior to admission, however, unlikely jayne able to stay at home with him temporarily. Neighbors had reported that he was able to ride an ATV and garden independently prior to admission. Additionally, deficits may have chronic component to it-unclear at this time. PREVIOUS FUNCTIONAL STATUS: Prior Level of Function Reported by: Patient (11/24/24 [facility]) Ambulation: Ambulatory without device (11/24/24 [facility]) Grooming: Independent (11/24/24 [facility]) Bathing: Independent (11/24/24 [facility]) Dressing: Independent (11/24/24 [facility]) Feeding: Independent (11/24/24 [facility]) Toileting: Independent (11/24/24 [facility]) Meal Prep: Independent (11/24/24 [facility]) Homemaking: Independent (11/24/24 [facility]) Shopping: Independent (11/24/24 [facility]) Home Set-up and Support System: Lives with: Alone (11/24/24 [facility]) Assistance available: Yes (11/24/24 [facility]) Dwelling type: Single story home (trailer?) (11/24/24 [facility]) Entry steps: (unclear) (11/24/241422) Inside steps: None (11/24/241422) Bedroom location: 1st floor (11/24/24 [facility]) Bath location: 1st floor full bath (11/24/241422) Assistive Devices Used: Devices at home: No device (11/24/241422) Recent Physical Therapy Assessment: P.T. Bed Mobility Supine-Sit: Minimal Assistance (11/24/24 142) Transfers Sit-Stand: Minimal Assistance (11/24/24 [facility]) Stand-Sit: Minimal Assistance (11/24/24 [facility]) Recent Occupational Therapy Assessments: Self Care Feeding: Supervision (Please comment) (11/24/24 [facility]) Grooming: Moderate Assistance (hand hyigene) (11/24/24 [facility]) Toileting: Minimal Assistance (hygiene in stance) (11/24/24 [facility]) Dressing Upper Body: Moderate Assistance (gown change) (11/24/24 [facility]) Lower Body: Maximal Assistance (to don socks) (11/24/24 [facility]) Functional Ambulation Assistive Device: No device (11/24/24 [facility]) Distance in feet:: 5 (+5) (11/24/24 1353) Level of Assistance: Minimal Assistance (11/24/24 1353) Bed Mobility Supine-Sit: Minimal Assistance (11/24/24 1353) OT Transfers Sit-Stand: Minimal Assistance (11/24/24 1353) Stand-Sit: Minimal Assistance (11/24/24 1353) Toilet: Minimal Assistance (commode) (11/24/24 1353) CURRENT LEVEL OF FUNCTION: Weight Bearing Status: Weight bearing as tolerated (11/24/24 1423) Bed Mobility: Bed Mobility Supine-Sit: Minimal Assistance (11/24/24 1353) Transfer: OT Transfers Sit-Stand: Minimal Assistance (11/24/24 1353) Stand-Sit: Minimal Assistance (11/24/24 1353) Toilet: Minimal Assistance (commode) (11/24/24 1353) Ambulation: Functional Ambulation Assistive Device: No device (11/24/24 135) Distance in feet:: 5 (+5) (11/24/24 1353) Level of Assistance: Minimal Assistance (11/24/24 1353) Review of Systems: As per HPI Past Medical History: Diagnosis Date Heart valve replaced by other means Aortic Valve Replacement Sequelae, post-stroke CVA Past Surgical History: Procedure Laterality Date CAROTID (INTERNAL) ARTERY CATHETHER PLACEMENT N/A 11/23/2024 CATHETER PLACEMENT INTERNAL CAROTID ARTERY performed by Peter Blas MD at [place] [facility] REPLACEMENT AORTIC VALVE, BYPASS WITH PROSTHETIC VALVE Aortic Valve Replacement VERTEBRAL ARTERY CATHETER PLACEMENT N/A 11/23/2024 CATHETER PLACEMENT VERTEBRAL ARTERY, performed by Peter Blas MD at [place] [facility] Social History Tobacco Use Smoking status: Former Smokeless tobacco: Never Tobacco comments: 1.5 ppk/day, quit November 09 Vaping Use Vaping status: Never Used Substance Use Topics Alcohol use: No Family History Problem Relation Name Age of Onset Neurological Disorder Mother brain aneurysm Review of patient's allergies indicates: Allergen Reactions Bee Venom Cephalosporins hives Penicillin G Current Facility-Administered Medications Medication Dose Route Frequency Provider amLODIPine (Norvasc) tab 10 mg 10 mg Oral Daily(AM) Esther Espinal MD insulin aspart (NovoLOG) inj Subcutaneous With Meals and HS Esther Espinal MD labetalol (Trandate) inj 10 mg 10 mg Intravenous Q1H PRN Jaida Leger CRNP Acetaminophen (Tylenol) tab 650 mg 650 mg Oral Q6H PRN Esther Espinal MD atorvaSTATin (Lipitor) tab 40 mg 40 mg Oral Gastric Tube Q 1700 Jaida Leger CRNP chlorHEXIDINE (Periogard) 0.12 % oral rinse 15 mL 15 mL Oral mucosal membrane BID (08,1999) Jaida Leger CRNP dextrose 50% inj 25 mL 25 mL IV Push PRN Lopes, Shanna, DO dextrose 50% inj 50 mL 50 mL IV Push PRN Lopes, Shanna, DO Docusate Sodium (Colace) oral liquid 100 mg 100 mg Oral Gastric Tube BID(AM/PM) Jaida Leger CRNP glucagon (Glucagen) inj 1 mg 1 mg Intramuscular PRN Lopes, Shanna, DO Glucose (Glutose 15) 40 % gel 15 g of glucose 15 g of glucose Oral PRN Lopes, Shanna, DO Glucose (Glutose 15) 40 % gel 30 g of glucose 30 g of glucose Oral PRN Lopes, Shanna, DO glucose chew tab 16 g 16 g Oral PRN Lopes, Shanna, DO Oral Hygiene: Mouth Swab with dentifrice Oral Q4H Limited (00;04;12;16) Jaida Leger CRNP oxygen GAS Inhalation Oxygen Jaida Leger CRNP Sennosides (Senokot) oral syrup 10 mL 10 mL Oral Gastric Tube Daily(AM) Jaida Leger CRNP chlorhexidine gluconate cloth 2 % pad External Daily 1000 Suman Wilson MD sodium chloride 0.9 % flush central line 10 mL 10 mL IV Push Q8H Suman Wilson MD Objective PHYSICAL EXAM: BP: 141 mmHg/75 mmHg (11/25/24 0700) Pulse: 90 (11/25/24 0700) Resp: 18 (11/25/24 07) Temp: 37.39 C (11/25/24 0600) Temp Summary: Temp Min: 37.3 °C (99.1 °F) Max: 38 °C (100.4 °F) SpO2: 98 % (11/25/24 0700) O2 flow rate: 2 L/MIN (11/25/24 0100) Supplemental O2 Delivery: Room Air, None (11/25/24 0700) Vital Signs Last 24 Hours: Arterial Blood Pressure2 (ART) Min: 126/74 Max: 160/83 Pulse Av.1 Min: 90 Max: 116 Most Recent Temperature Av.6 C Min: 37.28 C Max: 38 C Resp Av Min: 17 Max: 36 General: NAD; resting comfortably Respiratory: nonlabored breathing on 2L NC O2. Skin: warm : No Caceres catheter present Psychiatric: appropriate mood MSK/Extremities: RUE elbow PROM just able to achieve 0 degrees extension 2/2 tone. Unable to achieve neutral supination/pronation position. Neurologic: Mental Status & Orientation: awake, alert, orientation limited 2/2 aphasia - receptive and expressive Cranial Nerves: pupils equal, right facial asymmetry, diminished right shoulder shrug, tongue protrudes midline. Motor: LEFT Shoulder 5/5 | Elbow 5/5 | Wrist 5/5 | Fingers 5/5 RIGHT Shoulder 4-/5 | Elbow 4-*/5 | Wrist 0/5 | Fingers 0/5 LEFT Hip 5/5 | Knee 5/5 | Ankle 5/5 RIGHT 4/5 | Knee 4/5 | Ankle ANNIE 2/2 plantarflexion contracture - unable to achieve neutral dorsiflexion. Muscle Tone: increased on elbow flexors, wrist and finger flexors. Incr tone right gastrocs with heel cord shortening. Sensory: withdraws all 4 extremities to pain BL UE & LE Reflexes: 3+ right patellar, 2+ right achilles | 2+ left patellar, 2+ left achilles Coordination: no pronator drift on left; difficult to assess right 2/2 increased tone. DATA REVIEW: LABS: Recent Results (from the past 24 hours) CBC Collection Time: 11/24/24 12:05 PM Result Value Ref Range WBC 14.31 (H) 4.00 - 10.80 K/uL RBC 3.98 4.50 - 5.25 M/uL HGB 11.9 (L) 14.0 - 16.8 g/dL HCT 34.8 (L) 40.0 - 48.4 % MCV 87.4 82.0 - 99.5 fL MCH 29.9 27.0 - 34.0 pg MCHC 34.2 32.0 - 36.0 g/dL RDW 14.8 11.5 - 15.5 % PLT 169 140 - 400 K/uL MPV 11.7 6.6 - 11.1 fL nRBCs 0 <=0 /100 WBCs LACTATE Collection Time: 11/24/24 12:05 PM Result Value Ref Range Lactate 3.5 (H) 0.4 - 2.0 mmol/L GLUCOSE METER, POINT OF CARE Collection Time: 11/24/24 12:08 PM Result Value Ref Range Glucose - POCT 164 (H) 70 - 120 mg/dL GLUCOSE METER, POINT OF CARE Collection Time: 11/24/24 4:47 PM Result Value Ref Range Glucose - POCT 216 (H) 70 - 120 mg/dL LACTATE Collection Time: 11/24/24 6:07 PM Result Value Ref Range Lactate 1.9 0.4 - 2.0 mmol/L GLUCOSE METER, POINT OF CARE Collection Time: 11/24/24 11:46 PM Result Value Ref Range Glucose - POCT 131 (H) 70 - 120 mg/dL PHOSPHORUS Collection Time: 11/25/24 5:20 AM Result Value Ref Range Phosphorus 2.1 (L) 2.5 - 4.8 mg/dL MAGNESIUM Collection Time: 11/25/24 5:20 AM Result Value Ref Range Magnesium 1.9 1.5 - 2.6 mg/dL BASIC METABOLIC PANEL Collection Time: 11/25/24 5:20 AM Result Value Ref Range BUN 14 6 - 20 mg/dL CREATININE 1.1 0.6 - 1.2 mg/dL EGFR 82 >=60 mL/min SODIUM 139 135 - 146 mmol/L POTASSIUM 3.7 3.5 - 5.1 mmol/L CHLORIDE 107 98 - 107 mmol/L CO2 23 22 - 32 mmol/L ANION GAP 9 7 - 15 mmol/L GLUCOSE 131 (H) 70 - 120 mg/dL CALCIUM 7.8 (L) 8.4 - 10.2 mg/dL CBC Collection Time: 11/25/24 5:20 AM Result Value Ref Range WBC 8.79 4.00 - 10.80 K/uL RBC 3.33 4.50 - 5.25 M/uL HGB 9.9 (L) 14.0 - 16.8 g/dL HCT 29.9 (L) 40.0 - 48.4 % MCV 89.8 82.0 - 99.5 fL MCH 29.7 27.0 - 34.0 pg MCHC 33.1 32.0 - 36.0 g/dL RDW 15.0 11.5 - 15.5 % PLT 116 (L) 140 - 400 K/uL MPV 11.6 6.6 - 11.1 fL nRBCs 0 <=0 /100 WBCs GLUCOSE METER, POINT OF CARE Collection Time: 11/25/24 5:22 AM Result Value Ref Range Glucose - POCT 125 (H) 70 - 120 mg/dL ASSESSMENT: Active Problems: Acute ischemic left MCA stroke (HCC) (POA: Unknown) History of ischemic left MCA stroke (POA: Unknown) Expressive aphasia (POA: Unknown) On continuous oral anticoagulation (POA: Unknown) Pseudoaneurysm following procedure (HCC) (POA: Unknown) POA = Present On Admission Tariq Sawant is a(n) 54 year old male PMHx CVA 2004 with residual right hemiparesis who presents with mobility and ADL deficits secondary to acute left MCA stroke s/p mechanical thrombectomy (11/24/24 w/ Dr. Blas). Patient would benefit and be appropriate for an IRF admission. 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 Per CM, it is very unlikely the neighbors would be willing to stay over with Tariq or having Tariq stay with them. The transition from supervision to independent assistance levels can be challenging for some patients, and there is a chance the patientwould need to eventually discharge to a SNF after IRF depending on his progress. The patient's plantar flexed right ankle poses a significant safety barrier to being home alone as it places the patient at a high risk of catching his toe or becoming off balance and falling. It would be encouraged that his neighbors have verbal communication or visit him near daily upon initiallyreturning home. At this time he is on no medications to address his underlying tone, which may help improve his function. It will be highly recommended that the patient follows up with PM&R outpatient to addresshis right upper and lower extremity spasticity. PLAN: Disposition Recommendation: Other - Likely IRF (> SNF) - service will follow-up on Tuesday 11/28 if patient still admitted. Medical Complexity: Patient does require physician oversight at least 3 times per week. Patient does require 24/7 registered nursing care. Patient does require at least 2 therapeutic disciplines of PT, OT, and/or ADVANCED MANUFACTURING CONSULTANT services for at least3 hours per day, 5 days per week in order to maximize functional independence in the safest manner. Patient is expected to achieve individualized functional improvement goals within the following reasonable timeframe - 2 Weeks. There is may be a reasonable expectation patient will discharge to the community post-acute rehabilitation admission. Patient is expected to be able to follow commands, tolerate, actively & willingly participate at least 3 hours of therapy per day for at least 5 days per week in their current clinical condition. Patient's Insurance: [employer] PPO Recommend Addressing Prior to Discharge: Consider ordering post-void residual scans q8H x1 day given risk of urinary retention 2/2 neurogenic bladder. If no contraindications, consider initiating baclofen 10mg QHS; titrating up to TID as tolerated for RUE and RLE spasticity as a starting dose. Highly recommend patient follows up with outpatient PM&R for spasticity management - please include in DC summary to PCP. 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 Please contact service via [employer] Role for further questions or concerns: PMRRESIDENTCONSULTS Patient discussed with the attending physician Dr. Pravin MD. Cosigned by Mason Costello MD at 11/25/2024 10:00 PM EDT Associated attestation - Mason Costello MD - 11/25/2024 10:00 PM EDT I saw and evaluated the patient today. I have reviewed the resident/fellow physician note and agree. * Rg Singer OTR/Cherie - 11/24/2024 3:03 PM EDTAssociated Order(s): ADULT OCCUPATIONAL THERAPY CONSULT IP GENERAL EVALUATION - Occupational Therapy [facility] [address] Name: Tariq Sawant Location: [facility]/A Date: 11/24/2024 Time: 3:03 PM Tariq Sawant is a 54 year old male. Patient Status: Inpatient Insurance: Payor: [employer] MEDICARE ADVANTAGE Plan: HUMANA CHOICE PPO Product Type: *No Product type* Payor: [employer] Private [place] Plan: [employer] Private [facility] Product Type: HMO Patient Seen: at bedside, nursing cleared patient for therapy Patient Identified By: Name, ID Band and Date Diagnosis: R IPH (11/24/241352) Status of treatment: Evaluation completed (11/24/241352) Orders: OT evaluation and treatment (11/24/241352) Weight Bearing Status: Weight bearing as tolerated (11/24/241352) Precautions: A-line;Alarms;EEG;Falls;Safety (11/24/241352) Total Treatment Time: 30 (11/24/241352) Past Medical History: Past Medical History: Diagnosis Date Heart valve replaced by other means Aortic Valve Replacement Sequelae, post-stroke CVA Past Surgical History: Past Surgical History: Procedure Laterality Date CAROTID (INTERNAL) ARTERY CATHETHER PLACEMENT N/A 11/23/2024 CATHETER PLACEMENT INTERNAL CAROTID ARTERY performed by Peter Blas MD at [facility] REPLACEMENT AORTIC VALVE, BYPASS WITH PROSTHETIC VALVE Aortic Valve Replacement VERTEBRAL ARTERY CATHETER PLACEMENT N/A 11/23/2024 CATHETER PLACEMENT VERTEBRAL ARTERY, performed by Peter Blas MD [place] [facility] Social History/Disposition Lives with: Alone (11/24/241422) Assistance available: Yes (11/24/241422) Dwelling type: Single story home (trailer?) (11/24/24 142) Entry steps: (unclear) (11/24/241422) Inside steps: None (11/24/241422) Bedroom location: 1st floor (11/24/24 142) Bath location: 1st floor full bath (11/24/241422) Prior Level of Function Reported by: Patient (11/24/24 135) Ambulation: Ambulatory without device (11/24/24 135) Grooming: Independent (11/24/24 135) Bathing: Independent (11/24/24 135) Dressing: Independent (11/24/241352) Feeding: Independent (11/24/24 [facility]) Toileting: Independent (11/24/24 [facility]) Meal Prep: Independent (11/24/24 [facility]) Homemaking: Independent (11/24/24 [facility]) Shopping: Independent (11/24/24 [facility]) Subjective: Pt supine in bed, agreeable to OT session. Pain: No complaints of pain Observations Consciousness: Alert (11/24/24 [facility]) Orientation: Person (11/24/24 [facility]) Psychosocial: Patient can communicate basic needs;Patient cannot converse in a social setting. (limited 2/2 aphasia; able to verbalize some words; can also write) (11/24/24 [facility]) Sitting posture: Forward head;Rounded shoulders (11/24/24 [facility]) Standing posture: Forward head;Rounded shoulders (11/24/24 [facility]) Safety awareness: The Patient verbalizes insight of current deficits.;Needs cueing supervision. (11/24/24 [facility]) Other Findings Endurance: Fair (11/24/24 [facility]) Light touch sensation: (unclear - pt gave conflicting answers) (11/24/24 [facility]) Coordination: LUE;Intact;RUE;Impaired (11/24/24 [facility]) Tone: RUE;Increase tone (wrist, elbow, shoulder) (11/24/24 [facility]) Current Functional Status: Bilateral Upper Extremity Range of Motion: (wrist/digits; no active movement, limited passive wrist extension 2/2 tone) (11/24/24 [facility]) Strength Assessment: Deficits noted (11/24/24 [facility]) LUE: Shoulder;Elbow;Grasp;4+/5 (11/24/24 [facility]) RUE: Shoulder;3-/5;Elbow;3/5;Wrist;Grasp;0/5 (11/24/24 [facility]) Self Care Feeding: Supervision (Please comment) (11/24/24 [facility]) Grooming: Moderate Assistance (hand hyigene) (11/24/24 [facility]) Toileting: Minimal Assistance (hygiene in stance) (11/24/24 [facility]) Dressing Upper Body: Moderate Assistance (gown change) (11/24/24 [facility]) Lower Body: Maximal Assistance (to don socks) (11/24/24 [facility]) Functional Ambulation Assistive Device: No device (11/24/24 [facility]) Distance in feet:: 5 (+5) (11/24/24 [facility]) Level of Assistance: Minimal Assistance (11/24/24 [facility]) Bed Mobility Supine-Sit: Minimal Assistance (11/24/24 [facility]) OT Transfers Sit-Stand: Minimal Assistance (11/24/24 [facility]) Stand-Sit: Minimal Assistance (11/24/24 [facility]) Toilet: Minimal Assistance (commode) (11/24/24 [facility]) Balance Sit (Static): Fair (11/24/24 [facility]) Sit (Dynamic): Fair (-) (11/24/24 [facility]) Stand (Static): Fair (-) (11/24/24 [facility]) Stand (Dynamic): Poor (+) (11/24/24 [facility]) Alarm Status Patient positioned in: Chair (11/24/24 [facility]) With: Pressure pad alarm intact and functioning and call sim in reach (11/24/24 [facility]) Patient and Family Goals: to get well and to return home Patient Education Education Topic: Role of OT;Plan of care goals (11/24/24 [facility]) Review of Precautions: Safety;Fall (11/24/24 [facility]) Method of Education: Verbalized to patient (11/24/24 [facility]) Education Provided to: Patient (11/24/24 [facility]) Response to Education: Receptive and agreeable to education (11/24/24 [facility]) Barriers to learning: Medical status (11/24/241352) Preferred learning method: Combination (11/24/24 [facility]) Treatment Provided: Therapeutic Activity: 15 minutes Evaluation Moderate Complexity 15 minutes - 72715: Patient was cooperative and pleasant during treatment session. Moderate complexity evaluation performed and 3-5 activity limitations were identified, including ADL deficit, functional mobility deficit, bed mobility deficit, decreased strength, decreased endurance, decreased range of motion, and impaired balance. Minimal or moderate modification of the functional task was necessary to complete the evaluation. Deficits Requiring O.T. Treatment: Deficits requiring O.T. treatment needs: ADL/self-care;Endurance;Balance;Functional mobility;Safety;Upper extremity strength;Upper extremity range of motion;Weakness (11/24/24 [facility]) Assessment: Patient was [place] [facility] [place] for R IPH. Patient was cooperative and agreeable to participate in OT evaluation this date. Patient aphasic during session. Able to verbalize somewhat and write to communicate but unclear of accuracy of social hx. Prior to admission patient was independent with ADLs/IADLs and mobility. During session patient demonstrates decreased strength/ROM of RUE as compared to LUE. No active movement noted at R wrist/digits. Patient fitted for resting hand splint this date. Splint to be discontinued if pain occurs or patient regains active movement of wrist/digits. He completed UB/LB dressing tasks with modA-maxA 2/2 RUE deficits. Patient reports difficulty donning R sock at baseline. Sit/stand transfers and functional mobility completed with Bud due to slight unsteadiness. Bud also provided for toilet-hygiene while in stance. Following session pt in chair with all needs met. Further mobility limited 2/2 EEG. Currently, patients presents with deficits in ADLs, functional transfers and mobility, as well as decreased strength, endurance, balance and safety. Patient would benefit from continued OT services to improve independence in ADLs and functional mobility. When medically appropriate, Please consider post-acute care services which may include home health, snf, outpatient therapy or inpatient rehabilitation. The level of care will be determined in collaboration with patient, family/caregiver and care team members. . Goals: Demonstrates Self-Care at: UB Bathing: supervision LB Bathing: CGA UB Dressing: supervision to don gown/robe/shirt LB Dressing: CGA to don socks/shoes/pants Grooming: supervision Feeding: mod I Toileting: supervision Demonstrates Bed Mobility at: Supine to sit: supervision Sit to supine: supervision Rolling left/right: supervision Demonstrates balance at: Static/Dynamic sitting balance: Fair+ Static/Dynamic standing balance: Fair Transfers: Sit to Stand: supervision Stand to Sit: supervision Toilet: supervision Functional Ambulation at supervision with AD PRN Demonstrates standing/activity endurance at 10 minutes to engage in functional OT tasks Increase AROM of R wrist/digits Increase Strength of B UEs 1/2 muscle grade Patient will trial use of resting hand splint for RUE to decrease risk of contracture and maintain joint integrity/mobility Goal Time Frame: 8 visits Treatment Plan: Safety, Bed mobility training, Functional Ambulation, Transfer Training, Upper extremity strengthening, Balance activities, ADL training and Endurance Anticipated Frequency (on eval): 3 to 5 times per week (11/24/241352) AM-PAC Help From Another Person Eating Meals: A little (11/24/241352) Help From Another Person Taking Care of Personal Grooming: A little (11/24/241352) Help From Another Person To Put On/Take Off Upper Body Clothing: A lot (11/24/241352) Help From Another Person To Put On/Take Off Lower Body Clothing: A lot (11/24/241352) Help From Another Person Toileting: A little (11/24/241352) Help From Another Person Bathing: A little (11/24/241352) OT AM-PAC Score: 16 (11/24/241352) OT AM-PAC t-Scale Score: 35.96 (11/24/241352) HLM (Highest Level of Mobility) Goal: Level 5 standing (1 or more minutes) (11/24/241422) A portion of this AM-PAC assessment not scored based on functional assessment; rather clinical decision making utilized based on current findings and/or prior level of function. Please refer to future AM-PAC calculations of functional ability as they become available. * Silva Agudelo, PT - 11/24/2024 2:23 PM EDTAssociated Order(s): ADULT PHYSICAL THERAPY CONSULT IP GENERAL EVALUATION - Physical Therapy [address] [address] Name: Tariq Sawant [place] [facility] Date: 11/24/2024 Time: 1422 Tariq Sawant is a/an 54 year old male. Patient Status: Inpatient Insurance: Payor: [employer] MEDICARE ADVANTAGE Plan: [employer] CHOICE PPO Product Type: *No Product type* Payor: [employer] Private [place] Plan: [employer] Private [facility] Product Type: HMO Patient Seen: at bedside, nursing cleared patient for therapy Patient Identified By: Name, ID Band and Date Diagnosis: aphasia, ischemic stroke (11/24/241422) Status of treatment: Evaluation completed (11/24/241422) Orders: PT evaluation and treatment;OOB (11/24/241422) Weight Bearing Status: Weight bearing as tolerated (11/24/241422) Precautions: Alarms;Falls;Safety;A-line;EEG (11/24/241422) Total Treatment Time--free text: 39 (11/24/241422) Past Medical History: Past Medical History: Diagnosis Date Heart valve replaced by other means Aortic Valve Replacement Sequelae, post-stroke CVA Past Surgical History: Past Surgical History: Procedure Laterality Date CAROTID (INTERNAL) ARTERY CATHETHER PLACEMENT N/A 11/23/2024 CATHETER PLACEMENT INTERNAL CAROTID ARTERY performed by Peter Blas MD at [facility] REPLACEMENT AORTIC VALVE, BYPASS WITH PROSTHETIC VALVE Aortic Valve Replacement VERTEBRAL ARTERY CATHETER PLACEMENT N/A 11/23/2024 CATHETER PLACEMENT VERTEBRAL ARTERY, performed by Peter Blas MD [place] [facility] Subjective: Pt awake in bed, agreeable to PT. Pt had trouble with speech and word-finding. Social History/Disposition Lives with: Alone (11/24/241422) Assistance available: Yes (11/24/241422) Dwelling type: Single story home (trailer?) (11/24/241422) Entry steps: (unclear) (11/24/241422) Inside steps: None (11/24/241422) Bedroom location: 1st floor (11/24/241422) Bath location: 1st floor full bath (11/24/241422) Prior Level of Function Reported by: Patient (11/24/241422) Ambulation: Ambulatory without device (11/24/241422) Devices at home: No device (11/24/241422) Observations Consciousness: Alert (communication limited due to trouble with speech and word- finding) (11/24/241422) Orientation: Person (not place, even with choices) (11/24/241422) Psychosocial: (some trouble with speech and word-finding) (11/24/241422) Other Findings: Yes (11/24/241422) Findings: Light touch sensation (11/24/241422) Light Touch Sensation Results: Intact;LLE;RLE (11/24/241422) Sitting Posture: Forward head;Rounded shoulders (11/24/241422) Standing Posture: Forward head;Rounded shoulders (11/24/241422) Pain: Patient has complaints of pain. Pain located in R shoulder, nursing aware. Range of Motion Range of Motion: WFL (11/24/241422) Strength Assessment Strength Assessment: (5/5 B/L LE except R ankle 0/5) (11/24/241422) P.T. Bed Mobility Supine-Sit: Minimal Assistance (11/24/241422) Transfers Sit-Stand: Minimal Assistance (11/24/241422) Stand-Sit: Minimal Assistance (11/24/241422) Ambulation: Distance ambulated (feet): 5 ft + 5 ft Assistive Device: No device Assist: Minimal Assistance Balance Sit (Static): Fair (to fair-) (11/24/241422) Sit (Dynamic): Fair (-) (11/24/241422) Stand (Static): Fair (- to poor+) (11/24/241422) Stand (Dynamic): Fair (- to poor+) (11/24/241422) Patient and or Family Goal(s): unable to obtain Patient Education Review of Precautions: Safety;Fall (role of PT) (11/24/241422) Review of Exercises: Pt Demonstrated Exercise;Verbal Exercises Provided (11/24/241422) Safety Awareness: Patient can communicate basic needs (somewhat; some trouble with speech and word-finding) (11/24/241422) Preferred learning method: Combination (11/24/241422) Barriers to learning: Medical Status;Speaking (11/24/241422) Method of Education: Verbalized to patient;Patient demonstrated task (11/24/241422) Topic of Education: Safety with mobility, Goals/plan of care, and Fall prevention Method of Education: Verbal discussion and explanation provided to pt: demonstrated the exercise and or task Treatment Provided: Therapeutic Activities 10 minutes: transfer training toilet transfer training Neuromuscular Re-education 9 minutes: balance and postural retraining Evaluation High Complexity 20 minutes - [id number]: Patient was cooperative during treatment session. High complexity evaluation performed and 3 or more personal factors or comorbidities were identified that will impact plan of care, including obesity, history of CVA, current functional status, impaired communication, ICU status. Patient presents with limitations in strength, bed mobility, transfers, gait, elevations, balance, endurance, and safety, which will impact plan of care. These limitations will be addressed by the goals set for this patient. Alarm Status Patient positioned in: Chair (11/24/241422) With: Pressure pad alarm intact and functioning and call sim in reach (no cord in NSICU) () Cord not plugged into call sim system, as this is not available in NSICU. RN is aware. Treatment Status: Treatment at bedside (11/24/241422) Goals: Demonstrate Bed Mobility with: modified independent Demonstrate Sit to/from Stand and/or Stand Pivot Transfers with: modified independent Demonstrate Ambulation: least restrictive assistive device, 150 feet, modified independent *Stair goal to be made pending clarification of home setup* Increase Strength of: R ankle by at least 25% Increase Balance: dynamic standing balance to fair+ Increase Safety: with all functional mobility Time Frame: 9-10 visits Assessment: Pt is 54 year old male presenting with aphasia, ischemic stroke. Pt seen on this date for initial evaluation. Pt reports pain in R shoulder, nursing aware. Prior to admission, pt reports living in 1-story trailer (unclear if there are steps to enter) alone, but has friends who are able to assist if needed. Pt reports ambulating with no device at baseline. During session, pt was cooperative, but noted to have trouble with speech and word-finding. Pt was oriented only to person when given choices. Upon initial evaluation, pt was able to perform bed mobility with Bud, sit to stand transfers with Bud, and ambulated 5 ft + 5 ft with Bud and no device. Following session, pt positioned in chair with alarm and call sim in reach. Session limited by EEG. Pt presents with deficits instrength, endurance, mobility, ambulation, and balance, all of which are currently negatively impacting pt's quality of life. Pt would continue to benefit from skilled PT services while inpatient at hospital to reach established goals and address deficits. Pt is not safe to return home due to living alone at home and current functional status. Please consider post-acute care services which may include home health, snf, outpatient therapy or inpatient rehabilitation. The level of care will be determined in collaboration with patient, family/caregiver and care team members. All needs met. Deficits requiring P.T. treatment needs: Safety;Mobility;Balance;Weakness;Endurance;Lower extremitystrength (11/24/241422) Equipment Needs: Equipment needs: (TBD) (11/24/241422) Treatment Plan: Bed mobility training, Transfer training, Gait training, Strengthening exercises: Rankle, Balance activities, and Educate on safety with functional mobility Anticipated Frequency (on eval): 3 to 5 times per week (11/24/241422) AM PAC Score with Stairs: 17 A portion of this AM-PAC assessment not scored based on functional assessment ; rather clinical decision making utilized based on current findings and/or prior level of function. Please refer to future AM-PAC calculations of functional ability as they become available. * Aimee Flores CCC-ADVANCED MANUFACTURING CONSULTANT - 11/24/2024 8:36 AM EDTAssociated Order(s): ADULT SPEECH THERAPY CONSULT IP (ACUTE CARE REHAB) PROGRESS NOTE - Speech-Language Pathology [address] [address] Name: Tariq Chao Jese [place] [facility] Date: 11/24/2024 Time: 8:37 AM Patient Status: Inpatient Insurance: Payor: [employer] MEDICARE ADVANTAGE / Plan: [employer] CHOICE PPO / Product Type: *No Product type* / Patient Age: [age] year old Consult received and appreciated. Pt intubated after ST consult placed. ST removed at this time. Please re-consult s/p extubation. * Carlton Villagran MD - 11/24/2024 1:26 AM EDTAssociated Order(s): NEUROLOGY CONSULT IP CONSULT - Stroke / Vascular Neurology [address] [address] Name: Tariq Sawant [place] [facility] Date: 11/24/2024 Time: 1:26 AM Date and Time Service was Contacted: Time: 111 Date: 11/24/2024 REQUESTING SERVICE: Critical Care Medicine PRESENTING PROBLEM: Acute Ischemic Stroke REASON FOR CONSULT: L MCA occlusion Last Known Well (LKW): Time: 1999 Date: 11/22/2024 Time patient seen 0130 HPI: Tariq Sawant is a 54 year old unknown handed male with stroke risk factors as outlined below, who presents with symptoms including aphasia . 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 Thepatient fell on 11/22/24 and striked the left side of his head without LOC. Since then, he had expressive aphasia. He presented to [facility] ED and CTA H/N were obtained, which showed Lt M1 subocclosive thrombus and L [employer]SE abrupt cutoff. Teleneurology were contacted and they recommended DSA, for which NSGY agreed to. Patient transferred to [facility] [place] to [place] and now is TICI3 for the Lt MCA. The patienthad groin bleeding bilaterally with concern for bleeding due to bladder shifting on angio, for which vascular surgery was also consulted. Patient was seen in ICU shortly after the procedure. He was intubated and on propofol 30, moving his LUE/LLE spontaneously and was agitated. No obvious of major movement on the right was noted. The patient opened his eyes once when his name was called and then needed noxious stimulation to open hiseyes. Exam is limited by sedation and intubation. Ischemic Stroke Risk Factors Prior TIA Valve Replacement Hemorrhagic Stroke Risk Factors Currently taking antithrombotic medication Stroke Mimic Risk Factors None [employer]ING MACHINE OPERATOR Medications Reviewed: yes Recent Antithrombotics: Apixaban (Eliquis) Last Dose Taken: within 48 hours CURRENT MEDICATIONS: Note that completed medications (per the MAR) continue to display for 24 hours. Ordered medicationsto be given in the future also display. Current Facility-Administered Medications Medication Dose Route Frequency Provider atorvaSTATin (Lipitor) tab 40 mg 40 mg Oral Gastric Tube Q 1700 Jaida Leger CRNP chlorHEXIDINE (Periogard) 0.12 % oral rinse 15 mL 15 mL Oral mucosal membrane BID (08,1999) Jaida Leger CRNP Docusate Sodium (Colace) oral liquid 100 mg 100 mg Oral Gastric Tube BID(AM/PM) Jaida Leger CRNP Famotidine (Pepcid) inj 20 mg 20 mg Intravenous Q12H Jaida Leger CRNP magnesium sulfate 1 g in d5w 100mL LOCKED DOSE 1 g IV Piggyback Q1H Jaida Leger CRNP NSS 0.9% 500 mL bolus infusion 500 mL Intravenous Once Jaida Leger CRNP Oral Hygiene: Mouth Swab with dentifrice Oral Q4H Limited (00;04;12;16) Jaida Leger CRNP oxygen GAS Inhalation Oxygen Jaida Leger CRNP Propofol 10 mg/mL (1%) infusion 0-50 mcg/kg/min Intravenous Titrate Jaida Leger CRNP Sennosides (Senokot) oral syrup 10 mL 10 mL Oral Gastric Tube Daily(AM) Jaida Leger CRNP chlorhexidine gluconate cloth 2 % pad External Daily 1000 Suman Wilson MD sodium chloride 0.9 % flush central line 10 mL 10 mL IV Push Q8H Suman Wilson MD ALLERGIES: Bee venom, Cephalosporins, and Penicillin g PAST MEDICAL HISTORY: Past Medical History: Diagnosis Date Heart valve replaced by other means Aortic Valve Replacement Sequelae, post-stroke CVA PAST SURGICAL HISTORY: Past Surgical History: Procedure Laterality Date REPLACEMENT AORTIC VALVE, BYPASS WITH PROSTHETIC VALVE Aortic Valve Replacement FAMILY HISTORY: Family History Problem Relation Name Age of Onset Neurological Disorder Mother brain aneurysm Family History: see above SOCIAL HISTORY: Social History Tobacco Use Smoking status: Former Smokeless tobacco: Never Tobacco comments: 1.5 ppk/day, quit November 09 Vaping Use Vaping status: Never Used Substance Use Topics Alcohol use: No Drug use: Not on file ROS: Unable to obtain (intubated/sedated) PHYSICAL EXAMINATION: Most Recent Vital Signs: BP: 150 mmHg/88 mmHg (11/24/24199) Pulse: 87 (11/24/24199) Resp: 21 (11/24/24199) Temp: 36.78 C (11/24/24129) Temp Summary: Temp Min: 36.8 °C (98.2 °F) Max: 36.8 °C (98.2 °F) SpO2: 98 % (11/24/24199) O2 flow rate: Supplemental O2 Delivery: Room Air, None (11/24/24129) There is no height or weight on file to calculate BMI. Vital Signs Last 24 Hours: Systolic BP: Most Recent Systolic BP Av.3 mmHg Min: 137 mmHg Max: 150 mmHg Temperature: Most Recent Temperature Av.78 C Min: 36.78 C Max: 36.78 C Pulse: Pulse Av.7 Min: 80 Max: 87 Respirations: Resp Av.7 Min: 14 Max: 21 SpO2: SpO2 Av.3 % Min: 98 % Max: 100 % Neurologic Examination: Ophthalmoscopic: deferred due to acuity Mental Status and Orientation: GCS Adult: Eyes Open: 2 = to pain Best Verbal Response: 1 = no response / ET Tube Best Motor Response: 5 = localizes pain TOTAL: 8t Memory, Attention, Knowledge, Language, Speech: ANNIE 2/2 intubation and sedation Cranial Nerves: CN 2 - no blink to threat CN 3, 4, 6 - not tested CN 5 - ANNIE 2/2 intubation CN 7 - ANNIE due to intubation CN 8 - ANNIE 2/2 intubation CN 9, 10 - not tested CN 11 - unable to assess due to intubation CN 12 - Unable to assess 2/2 ET tube Sensory: withdraws to painful stimuli Coordination: unable to assess due to intubation Gait: Deferred due to intubation Muscle exam: Unable to assess 2/2 intubation. Spontaneous movement on the left side Reflexes: Not tested SEVERITY SCORES: [employer] Stroke Scale: 1A. LOC: 2 1B. Question: 2 1C. Commands: 2 2. Gaze: 0 3. Visual Srivastava: 0 4. Facial Palsy: 0 5A. Arm Left: 2 5B. Arm Right: 3 6A. Leg Left: 2 6B. Leg Right: 4 7. Ataxia: 0 8. Sensory: 0 9. Aphasia: 3 10. Dysarthria: untestable 11. Extinction: 0 Total: 20 Baseline / Pre-morbid Level of Function by Modified Corrie Scale: 0 - No Sxs; 6 - 3 - Mod disability can walk independently 1 - Sxs no disability 4 - Mod disability walks w/ assistance 2 - Sxs slight disability 5 - Severe disability bedridden Modified Juneau Scale = 3 - Moderate disability. Requires some help, but able to walk without the assistance of another individual. ABCD2 (Age, BP, Clinical Features of TIA, Duration, Diabetes) Score: N/A ASPECTS (CT Scan): 7 (prev stroke encephalomalacia) ASPECTS (CT Angiogram-Source Images): 7 ASPECTS (MRI Brain Diffusion Images): N/A Intracerebral Hemorrhage (ICH) Score: N/A Sheikh & Bryan Score: N/A Matta SAH Grade: N/A Personal Review of Neuroimaging, my interpretations are as follows: CT Head without contrast: chronic Lt MCA infarct CT Angiogram: Lt M1 sub-occlusive thrombus, Lt P1 abrupt cutoff CT Perfusion: N/A MRI Brain: N/A The above CT, CTA and/or CTP were reviewed using [employer] automated imaging processing. I have reviewed Radiologic Studies and noted significant findings as follows: CTA HEAD/CTA NECK Addendum Date: 11/23/2024 THIS REPORT CONTAINS FINDINGS THAT MAY BE CRITICAL TO PATIENT CARE. The findings were verbally communicated via telephone conference with ROSITA Sams at 8:52 PM EDT on 11/23/2024. The findings were acknowledged and understood. THIS DOCUMENT HAS BEEN ELECTRONICALLY SIGNED BY PARTH HIGGINS MD Result Date: 11/23/2024 IMPRESSION: 1. There is a short segment near occlusion of the distal most aspect of M1 segment leftmiddle cerebral artery with some preserved filling of the attenuated appearing M2 branching distal to this. Uncertain if this is related to the old infarction, or if there is a new thrombus here. 2. There is abrupt occlusion just past the origin left posterior cerebral artery with minimal filling peripheral to this. PROCEDURE INFORMATION: Exam: CTA Neck Without And With Contrast Exam date and time: 11/23/2024 8:02 PM Age: 54 years old Clinical indication: Other: Aphasia; Additional info: Severe headache and new onset aphasia TECHNIQUE: Imaging protocol: Computed tomographic angiography of the neck without and with contrast. Exam focused on the cervical segments of the vasculature. 3D rendering (Not supervised by radiologist): MIP and/or 3D reconstructed images were created by the technologist. Radiation optimization: All CT scans at this facility use at least one of these dose optimization techniques: automated exposure control; mA and/or kV adjustment per patient size (includes targeted exams where dose is matched to clinical indication); or iterative reconstruction. Contrast material: ISOVUE 370; Contrast volume: 80 ml; Contrast route: INTRAVENOUS (IV); COMPARISON: CT C SPINE WO CONTRAST 11/23/2024 7:09 PM FINDINGS: Right common carotid artery: No stenos is. No dissection or occlusion. Right internal carotid artery: No stenosis of the extracranial segment. No dissection or occlusion. Right external carotid artery: No occlusion or stenosis of the origin. Left common carotid artery: No stenosis. No dissection or occlusion. Left internal carotid artery: No stenosis of the extracranial segment. No dissection or occlusion. Left external carotid artery: No occlusion or stenosis of the origin. Right vertebral artery: No stenosis. No dissection or occlusion. Left vertebral artery: Dominant left vertebral artery. Soft tissues: Normal. No significant soft tissue swelling. Bones/joints: No acute fracture. Other findings: No dissection, aneurysm or sten osis in the extracranial carotid systems or vertebral arteries. IMPRESSION: No dissection, aneurysmor stenosis in the extracranial carotid systems or vertebral arteries. REFERENCES: NASCET CRITERIA.The degree of stenosis in the cervical segment of the internal carotid artery is based on NASCET criteria. Normal is no stenosis. Mild is less than 50% stenosis. Moderate is 50-69% stenosis. Severe is 70% to 99% stenosis. Total occlusion is no detectable patent lumen. THIS DOCUMENT HAS BEEN ELECTRONICALLY SIGNED BY PARTH HIGGINS MD XR CHEST 1 VIEW Result Date: 11/23/2024 IMPRESSION: No lobar consolidation, pleural effusion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 contraindications to obtaining a MRI scan. 2. Asymmetric appearance of the piriform sinuses with relative effacement of the left side. Underlying mucosal lesion cannot be excluded. Recommend correlation with direct visualization. THIS DOCUMENT HAS BEEN ELECTRONICALLY SIGNED BY GERARDO ARREDONDO MD The above images were personally reviewed on 11/24/2024. IMPRESSIONS: This is a 54 year old male with concerns for arterial injury during stroke thrombectomy. No evidence of injury on aortogram shot during procedure by Dr. Blas. Good signals distally. PLAN: - will f/u CTA to be obtained by neurosurgery team after stroke thrombectomy - please call with any questions Solis Rivera MD Vascular Surgery Fellow Cosigned by Walter Trivedi MD at 11/24/2024 3:06 PM EDT Associated attestation - Walter Trivedi MD - 11/24/2024 3:06 PM EDT I saw and evaluated the patient today. I have reviewed the resident/fellow physician note and agree. Now extubated and awake Right groin ecchymosis; no pseudoaneurysm visible to inject on duplex this AM Will follow peripherally for now (call with concerns) and repeat duplex on Thursday to reassess groin Walter Trivedi MD Section of Vascular and Endovascular Surgery [place] [address] [phone] * Peter Blas MD - 11/23/2024 11:08 PM EDT NEUROLOGICAL SURGERY CONSULT [place] [facility] [address] Name: Tariq Sawant [place] [facility] Date: 11/23/2024 Time: 11:08 PM Requesting service: Critical Care Medicine Reason for consult: "stroke" HISTORY OF PRESENT ILLNESS: Tariq Sawant is a 54 year old male with Hx aortic valve replacement and prior CVA 2004 on eliquis with residual right sided hemiparesis presenting from [facility] with CTA showing left MCA occlusion. Reportedly fell off a sofa yesterday and hit left side of his head and today complained of severe headache and noted to be aphasic. LKW sometime yesterday. Lactate > 4. PAST MEDICAL HISTORY: Past Medical History: Diagnosis Date Heart valve replaced by other means Aortic Valve Replacement Sequelae, post-stroke CVA PAST SURGICAL HISTORY: Past Surgical History: Procedure Laterality Date REPLACEMENT AORTIC VALVE, BYPASS WITH PROSTHETIC VALVE Aortic Valve Replacement SOCIAL HISTORY: Social History Socioeconomic History Marital status: Spouse name: Not on file Number of children: Not on file Years of education: Not on file Highest education level: Not on file Occupational History Not on file Tobacco Use Smoking status: Former Smokeless tobacco: Never Tobacco comments: 1.5 ppk/day, quit November 09 Vaping Use Vaping status: Never Used Substance and Sexual Activity Alcohol use: No Drug use: Not on file Sexual activity: Not on file Other Topics Concern Not on file Social History Narrative Not on file Social Needs Financial Resource Strain: Not on file Food Insecurity: Not on file Transportation Needs: Not on file Social Connections: Not on file Housing Stability: Not on file Social History Substance and Sexual Activity Drug Use Not on file FAMILY HISTORY: Family History Problem Relation Name Age of Onset Neurological Disorder Mother brain aneurysm MEDICATIONS: Current Medications - Prior to This Encounter Medication Sig Last Dose Discont. Melatonin 5 MG Oral Tablet Take 1 tablet (5 mg) one hour before bedtime (~11 pm) nightly. amLODIPine Besylate 10 MG Oral Tablet (Norvasc) Benazepril HCl 20 MG Oral Tablet (Lotensin) Eliquis 5 MG Oral Tablet hydrOXYzine HCl 25 MG Oral Tablet Take by mouth . Patient not taking: Reported on 06/23/2022 Simvastatin 20 MG Oral Tablet (Zocor) EFFEXOR XR 37.5 MG OR CP24 1 tablet BID TOPROL XL 50 MG OR TB24 1 TABLET DAILY ALLERGIES: Review of patient's allergies indicates: Allergen Reactions Bee Venom Cephalosporins hives Penicillin G REVIEW OF SYSTEMS: Per HPI PHYSICAL EXAMINATION: Vital signs over last 24 hours: Systolic BP: No data recorded Temperature: No data recorded Pulse: Pulse Avg: No data recorded Respirations: No data recorded SpO2: No data recorded Neurologic Examination See NIH stroke scale below LABS: Chemistry: Lab Results Component Value Date/Time BUN 18 11/23/2024 07:02 PM CREAT 1.1 11/23/2024 07:02 PM NA 135 11/23/2024 07:02 PM POTASSIUM 4.0 11/23/2024 07:02 PM CO2 18 (L) 11/23/2024 07:02 PM Coagulation studies: Lab Results Component Value Date/Time INR 1.1 11/23/2024 07:02 PM Blood count: Lab Results Component Value Date/Time WBC 7.06 11/23/2024 07:02 PM HGB 15.7 11/23/2024 07:02 PM HCT 45.9 11/23/2024 07:02 PM PLT 212 11/23/2024 07:02 PM IMAGING STUDIES: My Interpretation of Current Images: CTA shows left MCA occlusion SEVERITY SCORES: NIH Stroke Scale: 1a. Level of Consciousness: alert = 0 1b. LOC Questions: (month, age): aphasic or stuporous patient who does not comprehend the questions= 2 1c. LOC Commands (open and close eyes, make fist and let go using non-paretic hand): obeys both correctly = 0 2. Best Gaze (eyes open and patient follows examiner's finger or face): normal = 0 3. Visual (visual threat or finger counting in each quadrant): partial hemianopia = 1 4. Facial Palsy (show teeth, raise eyebrows, and squeeze eyes shut or grimace symmetry in a comatose patient): normal = 0 5a. Motor Arm: (extend arm (palms down) to 90 degrees and score drift/movement (10 seconds) - Left:no drift = 0 5b. Motor Arm: (extend arm (palms down) to 90 degrees and score drift/movement (10 seconds) - Right: no movement at all = 4 6a. Motor Leg: (elevate leg 30 degrees and score drift/movement (5 seconds) - Left: no drift = 0 6b. Motor Leg: (elevate leg 30 degrees and score drift/movement (5 seconds) - Right: no effort against (extremity falls to the bed right away but some movement noted) = 3 7. Limb Ataxia (finger to nose, heel down archer): unable to understand instructions or paralyzed extremity = 0 8. Sensory (pin prick to face, arm, trunk and leg, compare side to side): normal = 0 9. Best Language: severe aphasia = 2 10. Dysarthria (evaluate speech clarity by patient repeating listed words): mild-moderate slurring = 1 11. Extinction and Inattention: no neglect = 0 Total: 13 Present on admission: There is no height or weight on file to calculate BMI. Patient Active Problem List Diagnosis Embolic stroke (HCC) Left sided cerebral hemisphere cerebrovascular accident (HCC) Essential hypertension H/O mitral valve replacement with mechanical valve Mitral leaflet abnormality Other hyperlipidemia Right hemiparesis (HCC) IMPRESSION: Tariq Sawant is a 54 year old male patient with CTA showing L MCA occlusion, LKW sometime yesterday, NIH 13, prior stroke with right hemiparesis, hx aortic valve replacement on eliquis. RECOMMENDATIONS: To OR for emergent thrombectomy Discussed with Dr. Wan Arredondo MD Neurosurgery, PGY3 I saw and evaluated the patient 11/23/2024. I have reviewed the resident/fellow physician note and agree. documented in this encounter Nursing Notes * Sabra Mancuso RN - 12/02/2024 5:48 PM EDT Called [facility] at [phone], I was unable to give report due to no one answering * Livia Puga NA - 11/30/2024 4:46 PM EDT Post Anesthesia Care Unit Transport Note [address] [address] Dept. Tariq Sawant Transported from [facility] to : [id number] Time: 1640 Care of patient transferred to: [facility] Transported via: Bed Belongings with Patient: NO Pulse : 95 Temp : 36.3 BP : 100/50 Respirations : 24 Pulse Ox : 97 O2 : RA SCDS: On but not activated/no machine * Kishore Fritz RN - 11/30/2024 4:08 PM EDT PERIOP TO IP HANDOFF COMMUNICATION NOTE [address] [address] Name: Tariq Sawant AGE: [age] year old [place] [facility]: 11/30/2024 Attention to: Trinity Cotto Report from: KISHORE FRITZ RN Patient arriving via: Bed Time of call: 4:08 PM Phone Ext: [phone] Reason for SBAR (Situation, Background, Assessment, Recommendation) handoff: OR Sending to: AP4 Emotional/Personal Events & Special Needs: Has expressive aphasia Prescriptions in chart: No Code Status: Full Code Safety Concerns: no safety concerns identified Allergies: Bee venom, Cephalosporins, and Penicillin g PMH: Past Medical History: Diagnosis Date Heart valve replaced by other means Aortic Valve Replacement Sequelae, post-stroke CVA PSH: Past Surgical History: Procedure Laterality Date CAROTID (INTERNAL) ARTERY CATHETHER PLACEMENT N/A 11/23/2024 CATHETER PLACEMENT INTERNAL CAROTID ARTERY performed by Peter Blas MD at [facility] REPLACEMENT AORTIC VALVE, BYPASS WITH PROSTHETIC VALVE Aortic Valve Replacement VERTEBRAL ARTERY CATHETER PLACEMENT N/A 11/23/2024 CATHETER PLACEMENT VERTEBRAL ARTERY, performed by Peter Blas MD [place] [facility] Isolation: Isolation: Procedure: LI Type of Anesthesia: General endotracheal anesthesia Block: N/a IV intake: 400 mL EBL: OR: 0 mL PACU: 0 mL Urine output: OR n/a PACU 0 mL IUBC (Caceres): Incision location: n/a Dressing location: n/a Time of last skin assessment: 1545 Pressure injuries or areas of concern: Bruising b/l groins Lines: Peripheral Line Anterior;Right Hand 20 Gauge (Active) Status Fluids infusing;Flushes easily 11/30/24 1530 Tubing Changed N/A 11/30/241529 Phlebitis Scale 0 11/30/24 1530 Infiltration Scale 0 11/30/24 153 Site Description (Other) Without redness, swelling or drainage 11/30/24 153 Site Intervention Flushed 11/30/24 153 Dressing Assessment Dressing clean, dry, and intact 11/30/24 153 Dressing Intervention None required 11/30/241529 Number of days: 4 Peripheral Line Right Antecubital 22 Gauge (Active) Status Fluids infusing;Flushes easily 11/30/24 153 Tubing Changed N/A 11/30/24 153 Phlebitis Scale 0 11/30/240 Infiltration Scale 0 11/30/24 153 Site Description (Other) Without redness, swelling or drainage 11/30/24 153 Site Intervention Flushed 11/30/24 153 Dressing Assessment Dressing clean, dry, and intact 11/30/241529 Dressing Intervention None required 11/30/24 153 Number of days: 2 Vital Signs: BP: 116/77 (11/30/24 1600) Temp: 37.6 °C (99.7 °F) (11/30/24 153) Pulse: 90 (11/30/24 1600) Resp: 13 (11/30/24 1600) SpO2: 97 % (11/30/24 1600) O2 flow rate: 0 L/MIN (11/30/24 1600) Glucose (Bedside): 131 (11/30/24 1138) Time of last pain medication: n/a Med: n/a Time of last antibiotic: see flowsheets Med: see flowsheets Time of last antiemetic: see flowsheets Med: see flowsheets [employer] N[employer]SE: no Drips: no Neurological: Neuro WNL: X - Exceptions to WNL as documented below (no changes since previous assessment) (11/30/24 1200) Speech/Cry: Expressive aphasia (Uses mostly yes or no questions) (11/30/24 153) Level of Consciousness: Alert;Responds to voice (11/30/24 153) Head and Face: Asymmetrical (11/30/24799) RUE Motor Strength: 2-Active movement with gravity eliminated (11/30/241529) RLE Motor Strength: 2-Active movement with gravity eliminated (11/30/241529) LUE Motor Strength: 4-Active movement with some resistance (11/30/241529) LLE Motor Strength: 4-Active movement with some resistance (11/30/241529) Right Pupil Size (mm): 3 (11/30/241529) Right Pupil Reaction: Reactive (11/30/241529) Left Pupil Size (mm): 3 (11/30/241529) Left Pupil Reaction: Reactive (11/30/241529) Coma Score: 14 (11/30/241529) Respiratory: Respiratory WNL: X - Exceptions to WNL as documented below (11/30/241529) Cough: None (11/30/241529) Dyspnea Occurence: None (11/30/241529) Respiratory Effort: Unlabored (11/30/241529) Oxygen therapy/ Mechanical vent Ventilator Mode: Spontaneous (11/24/24 08) Supplemental O2 Delivery: Room Air, None (11/30/24 1600) O2 %: 40 % (11/24/24 1000) O2 flow rate: 0 L/MIN (11/30/24 1600) Ventilator Via: ETT (11/24/24 1000) O2 Device Skin Integrity : Skin unaffected (11/25/241999) Interventions: Skin care completed (11/25/241999) Cardiac: Cardiovascular WNL: X - Exceptions to WNL as documented below (11/30/241529) Heart Sounds: S1;S2 (11/30/241529) Rhythm: ST;PVC (11/30/241529) IA interval: 0.17 seconds (11/28/242352) QRS: 0.1 seconds (11/28/242352) Extremities: +Sensation;Right;Left;Upper;Lower;Warm (11/30/241529) Pulses Right: Dorsalis Pedis +;Radial +;Palpable (11/30/241529) Pulses Left: Dorsalis Pedis +;Radial +;Palpable (11/30/241529) Edema Location: Right Lower Extremity (RLE);Left Lower Extremity (LLE) (11/30/241529) RLE Edema Assessment: +1 - Description (11/30/241529) LLE Edema Assessment: +1 - Description (11/30/241529) Generalized Edema Assessment: +1 - Description (11/30/241529) Capillary Refill: 1-2 seconds (11/30/241529) GI: GI WNL: X - Exceptions to WNL as documented below (11/30/241529) Abdomen: Soft;Rounded;Non-tender (11/30/241529) : WNL: X - Exceptions to WNL as documented below (11/30/241529) Urine Description: Other-Describe (No urine to assess at this time) (11/30/241529) Straight Catheter Intermittent/Straight Cath Output (mL): 400 mL (11/25/241547) Due to Void: 2129 Integumentary:Integumentary WNL: X - Exceptions to WNL as documented below (11/30/241529) Skin Description: Warm;Dry (11/30/241529) Skin Color: Flesh Tone (11/30/241529) Skin Variations: Other - Describe (see below) (11/30/241529) Interventions: Fan (11/26/24 0800) Sudeep Score (auto-calculation): 19 (11/30/24 0904) Family updated on transfer: no Additional Assessment Information: Pt has expressive aphasia, mostly answers yes or no questions. Able to write on paper. * Kishore Fritz RN - 11/30/2024 3:57 PM EDT Dual Licensed Skin Assessment completed by Kishore Sirnivasan RN and Veronica Mckeon RN. The patient is/has a N/A Skin Breakdown (includes non blanchable erythema): Bruising on b/l groin * Wendy Rincon RN - 11/30/2024 2:52 PM EDT Dual Licensed Skin Assessment completed by Wendy Rincon RN and Lory Rodriguez RN. The patient is/has a N/A Skin Breakdown (includes non blanchable erythema): No * Laury Cotto RN - 11/30/2024 1:34 PM EDT IP TO PERIOP HANDOFF COMMUNICATION NOTE [address] [address] Name: Tariq Sawant AGE: [age] year old [place] [facility] [place] Date: 11/30/2024 Attention to: PACU Report from: Laury Cotto RN Patient arriving via: Bed Time of Call: 1:35 PM Phone Ext.: [phone] Reason for SBAR handoff: OR Consent: Emotional/Personal Events & Special Needs: expressive aphasia Allergies: Bee venom, Cephalosporins, and Penicillin g PMH: Past Medical History: Diagnosis Date Heart valve replaced by other means Aortic Valve Replacement Sequelae, post-stroke CVA PSH: Past Surgical History: Procedure Laterality Date CAROTID (INTERNAL) ARTERY CATHETHER PLACEMENT N/A 11/23/2024 CATHETER PLACEMENT INTERNAL CAROTID ARTERY performed by Peter Blas MD at [facility] REPLACEMENT AORTIC VALVE, BYPASS WITH PROSTHETIC VALVE Aortic Valve Replacement VERTEBRAL ARTERY CATHETER PLACEMENT N/A 11/23/2024 CATHETER PLACEMENT VERTEBRAL ARTERY, performed by Peter Blas MD [place] [facility] [place]: Situation/Background Admission Date: 11/23/2024 Patient Service: Neurology - Stroke Attending: Rika Livingston MD Level of Care: Med Surg [3] Assessment Vital Signs: BP: 116/86 (11/30/24 1014) Temp: 37.1 °C (98.8 °F) (11/30/24 1014) Pulse: 96 (11/30/24 1014) Resp: 18 (11/30/24 1014) SpO2: 94 % (11/30/24 1014) O2 flow rate: 0 L/MIN (11/30/24 0800) Glucose (Bedside): 131 (11/30/24 1138) Lines: Peripheral Line Anterior;Right Hand 20 Gauge (Active) Status Flushes easily;Capped/Locked;Alcohol disinfectant cap;Cap changed 11/30/24 1030 Tubing Changed No 11/30/240 Phlebitis Scale 0 11/30/24 1030 Infiltration Scale 0 11/30/24 1030 Site Description (Other) Without redness, swelling or drainage 11/30/24 1030 Site Intervention Flushed 11/30/24 1030 Dressing Assessment Dressing clean, dry, and intact 11/30/24 1030 Dressing Intervention None required 11/30/24 1030 Number of days: 4 Peripheral Line Right Antecubital 22 Gauge (Active) Status Flushes easily;Capped/Locked;Alcohol disinfectant cap;Cap changed 11/30/24 1030 Tubing Changed N/A 11/30/241029 Phlebitis Scale 0 11/30/24 1030 Infiltration Scale 0 11/30/24 1030 Site Description (Other) Without redness, swelling or drainage 11/30/24 1030 Site Intervention Flushed 11/30/24 1030 Dressing Assessment Dressing clean, dry, and intact 11/30/24 103 Dressing Intervention None required 11/30/24 1030 Number of days: 2 Restraints: No orders of the defined types were placed in this encounter. Labs: Please see Lab Flowsheet for lab values. Lab Comments: none Diet: Orders Placed This Encounter Procedures NPO After 2400 Except Meds NPO After 2400 Except Meds NPO: Additional Diet Information: NPO Intake and Output: Intake/Output Summary (Last 24 hours) at 11/30/2024 1334 Last data filed at 11/29/2024 1940 Gross per 24 hour Intake 174.71 ml Output -- Net 174.71 ml Belongings Remaining with Patient: none What were AM meds taken with: water Time of last pain medication: n/a Med: - Time of last antibiotic: n/a Med: - Time of last skin assessment: 0800 Pressure injuries or areas of concern: n/a Neurological: Neuro WNL: X - Exceptions to WNL as documented below (no changes since previous assessment) (11/30/24 1200) Speech/Cry: Expressive aphasia (11/30/24 1200) Level of Consciousness: Alert (11/30/24 1200) Head and Face: Asymmetrical (11/30/24 0800) RUE Motor Strength: 2-Active movement with gravity eliminated (11/30/241199) RLE Motor Strength: 3-Active movement against gravity (11/30/24 1200) LUE Motor Strength: 5-Active movement with full resistance (11/30/241199) LLE Motor Strength: 5-Active movement with full resistance (11/30/241199) Right Pupil Size (mm): 2 (11/29/24 1600) Right Pupil Reaction: Reactive (11/29/24 1600) Left Pupil Size (mm): 2 (11/29/24 1600) Left Pupil Reaction: Reactive (11/29/24 1600) Coma Score: 15 (11/30/241199) Respiratory: Respiratory WNL: WNL- within normal limits (11/30/24799) Cough: None (11/30/24799) Dyspnea Occurence: None (11/30/24799) Respiratory Effort: Unlabored (11/30/24799) Oxygen therapy/ Mechanical vent Ventilator Mode: Spontaneous (11/24/24799) Supplemental O2 Delivery: Room Air, None (11/30/24 1014) O2 %: 40 % (11/24/24 1000) O2 flow rate: 0 L/MIN (11/30/24799) Ventilator Via: ETT (11/24/24 1000) O2 Device Skin Integrity : Skin unaffected (11/25/241999) Interventions: Skin care completed (11/25/241999) Cardiac: Cardiovascular WNL: X - Exceptions to WNL as documented below (11/30/24799) Heart Sounds: S1;S2 (11/29/24799) Rhythm: NSR (11/30/24700) IA interval: 0.17 seconds (11/28/24 2353) QRS: 0.1 seconds (11/28/24 235) Extremities: +Sensation;Right;Left;Upper;Lower (11/28/241999) Pulses Right: Dorsalis Pedis +;Radial + (11/28/241999) Pulses Left: Dorsalis Pedis +;Radial + (11/28/241999) Edema Location: Generalized (11/30/24799) RLE Edema Assessment: +1 - Description (11/30/24799) LLE Edema Assessment: +1 - Description (11/30/24799) Generalized Edema Assessment: +1 - Description (11/30/24799) Capillary Refill: 1-2 seconds (11/28/241999) GI: GI WNL: WNL - within normal limits (11/30/24799) Abdomen: Soft;Non-distended;Non-tender (11/29/24799) : WNL: WNL - within normal limits (11/30/24799) Urine Description: Yellow (11/30/24 1036) Straight Catheter Intermittent/Straight Cath Output (mL): 400 mL (11/25/24 1548) Integumentary: Integumentary WNL: X - Exceptions to WNL as documented below (11/30/24799) Skin Description: Warm;Dry (11/29/24799) Skin Color: Ecchymosis (11/30/24799) Ecchymosis Location: Scattered (11/30/24799) Skin Variations: Other - Describe (see below) (11/30/24799) Interventions: Fan (11/26/24799) Sudeep Score (auto-calculation): 19 (11/30/24 0904) Additional Assessment Information: n/a * Zarina Shah RN - 11/29/2024 6:36 PM EDT I have reviewed and agree with the charting by Elen Hoffmann RN * Zarina Shah RN - 11/28/2024 2:59 PM EDT Dual Licensed Skin Assessment completed by Zarina Shah RN and Karan Diop RN. The patient is/has a N/A Skin Breakdown (includes non blanchable erythema): bruising b/l groin * Diana Faith RN - 11/26/2024 4:31 PM EDT Dual Licensed Skin Assessment completed by Elen Preston RN and Diana Poe RN. The patient is/has a N/A Skin Breakdown (includes non blanchable erythema): Yes - Surgical/Procedural changes only. Bilateral groin sites with ecchymotic areas * Simón Carter RN - 11/24/2024 11:02 AM EDT Extubation Time: 1055 Patient weaned for 240 minutes Order to extubate verified with ARLENE Mahoney Respiratory therapist at bedside: Candice Davison. Mouth care and suction provided. Cuff leak noted prior to extubation per Candice Davison and Dr. Hutchins. Patient extubated to 6L NC Bilateral breath sounds present per auscultation. No stridor noted. Patient resting quietly in bed with call sim in reach. No needs made apparent at this time. No neworders at this time. * Jaida Stevens RN - 11/24/2024 5:32 AM EDT Dual Licensed Skin Assessment completed by Jaida Davison RN and Leanna Saleem RN. The patient is/has a N/A Skin Breakdown (includes non blanchable erythema): Yes - Surgical/Procedural changes only. B/L groin sites - unable to assess under dressing * Renee Noriega RN - 11/23/2024 10:03 PM EDT Neuroendovascular RN note Name: Tariq Sawant Date: 11/23/2024 Time: 10:03 PM Location: [place] [facility] [place] of Service: 11/23/2024 Patient arrived at 2203 to [facility] [place] for a Diagnostic cerebral angiogram. Patient ID band checked using two identifiers. Patient placed supine on procedure table with comfort measures intact; bilateral arm boards and safety strap in place. Hemodynamic monitoring placed with anesthesia staff remaining at bedside for direct care. 2323 Arterial Line Placed by Anesthesia. Caceres catheter inserted by nurse as ordered. Distal pulses dopplered and marked. RT staff prepares and preps for procedure. Anesthesia: General Procedure by physician. 2230 Groin puncture. Access obtained on right. 8 Fr sheath placed. Catheter positioning under fluoroscopy. 2248 Groin Puncture. Access obtained on left. 4 Fr sheath placed Angiogram in progress. 001 Groin puncture. Access obtained on left. 4 Fr sheath placed. Angiogram in progress. 0025 4 Fr sheath in left groin replaced with 8 Fr sheath. Angiogram in progress. Interventional details if applicable 0028 : Guide catheter placement 0030 : Microcatheter placement 0032 : Aspiration First pass Imaging finished. Catheters removed. 1243am Angioseal placed. Sheath removed and manual pressure to site. Procedure ends. 1253 am Hemostasis obtained. Area cleaned. Gauze and Tegaderm dressing applied. Distal pulse unchanged. Patient tolerated well. Reported by RT: Total contrast used: 30 ml DAP plane A: 0.18 Gy DAP plane B: 0.01 Gy Fluoro time plane A: 6.4 minutes Fluoro time plane B: 1.0 minutes Reported as per physician, please see operative note for details: Implants: * No implants in log * documented in this encounter OR Notes * OR Surgeon - Peter Blas MD - 11/29/2024 9:04 AM EDT [facility] [address] [facility] [id number] OPERATIVE REPORT Name: Tariq Sawant Date: 11/29/2024 Time: 9:04 AM Location: [place] [facility] Service: Neurosurgery Date of Operation: 11/23/2024 Pre-op Diagnosis: 1. Acute ischemic stroke. 2. Left middle cerebral artery occlusion. Post-op Diagnosis: Successful revascularization of Left middle cerebral artery occlusion, TICI score 3. Operation: 1. Mechanical thrombectomy of Left middle cerebral artery occlusion. 2. 3-vessel cerebral angiogram. Surgeon: Peter Blas MD Assistants: None Anesthesia: General endotracheal anesthesia Estimated Blood Loss: 100 ml. IV Fluids: NA. Urine Output: NA. Drains: None. Specimens/Disposition: None. Apparent Intraoperative Complications: None. Patient Condition: Stable. Disposition: Intensive Care Unit. Attestation: I performed the procedure. Indications and history: 54 year old male. The patient presented with acute onset of aphasia. Last known normal was more the24 hours. NIHSS on presentation was 20. Head CTA showed a left M1 occlusion. After discussion with the on-call stroke neurologist, we decided that the patient is a candidate for mechanical thrombectomy. As the patient was not able to signs the consent for the procedure and as there were no family contact with the patient or listed on file, we decided to proceed and perform the procedure as an emergency procedure. Procedure: The patient was brought into the endovascular suite and placed on the table. The patient was identified using two identifiers and a time-out was performed. After prepping and draping both femoral regions in the usual sterile fashion, a micropuncture kit was used under US guidance to puncture the right femoral artery. Using regular Seldinger technique, a 8 Fr x 10 cm vascular sheath was then advanced over the wire and connected to a high-pressure arterial saline bag containing 4 units/ml of heparin. There was evidence of perfuse bleeding around the sheath. I therefore removed the sheath and held manual pressure for 20 minutes. Using a micropuncture kit, and under US guidance,the left femoral artery was accessed. Using regular Seldinger technique, a 8 Fr x 10 cm vascular sheath was then advanced over the wire and connected to a high-pressure arterial saline bag containing 4 units/ml of heparin. There was evidence of perfuse bleeding around the sheath. I therefore removed the sheath and held manual pressure for 20 minutes. XR of the pelvis showed left riley deviation of the already distended urinary bladder. I was therefore concerned for internal hemorrhage from the right groin access. The patient was stabilized hemodynamically. An invasive left radial arterial line was placed. A right central line was placed in the right IJ. Vascular surgery clinical practitioner physician was called to the room in case an emergent open cut downwas needed. Using a micropuncture kit, and under US guidance,the left femoral artery was accessed. Using regular Seldinger technique, a 4 Fr x 10 cm vascular sheath was then advanced over the wire and connected to a high-pressure arterial saline bag containing 4 units/ml of heparin. A diagnostic catheter was advanced from the left femoral artery to the right iliac artery. 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 There was no evidence of active extravasation, thrombosis or dissection. A diagnostic catheter was advanced from the left femoral artery to the left iliac artery. An angiogram of the left iliac and femoral arteries disclosed no evidence of active extravasation, thrombosisor dissection. The patient was stable hemodynamically and I therefore decided to proceed at this point with the stroke thrombectomy. The 4-F left femoral sheath was exchanged to an 8-F x 10 cm sheath. A 90 cm Neuron Max long guide catheter under constant heparinized saline irrigation was navigated over a 5F diagnostic Garibay catheter and a 0.038 Terumo Glidewire and used to selectively catheterize the following arteries in succession: Left common carotid artery was selected. AP and lateral views of the carotid bifurcation were obtained. Left internal carotid artery was selected. AP and lateral views of the anterior intracranial circluation were obtained. Left external carotid artery was selected. AP and lateral views of the extracranial carotid circluation were obtained. In triaxial fashion a 6F 125 cm SofiaPlus intermediate catheter was navigated over a 0.027'' Marksman microcatheter and a 0.014'' Synchro-2 Standard and used to selectively catheterize the Left M1 middle cerebral artery. After waiting for full 5 minutes the mechanical thrombectomy device was retrived while instituting flow reversal with a Spivey aspiration pump. The device was inspected and organized thrombus was seen. A post thrombectomy run performed showing improved flow consistent with yes - TICI score available Modified Treatment in Cerebral Ischemia Scale (mTICI) Grade 3 with Complete antegrade reperfusion ofthe previously occluded target artery ischemic territory, with absence of visualized occlusion in all distal branches. (TICI = thrombolysis in cerebral infarction) in the Left Hemisphere. Left common femoral artery. AP views were obtained. At the end of the procedure, the diagnostic catheter was removed and the arteriotomy site was closed with 8-F Angioseal closure device. Findings: Left common carotid artery angiogram: The carotid bifurcation is well visualized and without significant arteriosclerotic disease or stenosis. Left internal carotid artery angiogram: pre intervention, there is a complete occlusion of the leftM1 segment of the left middle cerebral artery (TICI 0). Post intervention with primary aspiration, there is complete recanalization of the left middle cerebral artery territory (TICI 3). The anteriorintracranial circulation is unremarkable. No evidence of aneurysm, arteriovenous malformation, vasospasm, or other intracranial vascular abnormality. Left external carotid artery angiogram: The extracranial carotid circulation is unremarkable. Left common femoral artery: The arteriotomy is above the femoral artery bifurcation. Impression: Successful revascularization of Left middle cerebral artery occlusion, TICI score 3. Implants * No implants in log * Peter Blas MD Director of Open Vascular and Endovascular Neurosurgery at [facility] Dynamometer Repairer of Neurosurgery, [facility] * OR Surgeon - Peter Blas MD - 11/24/2024 1:03 AM EDT [address] [address] OPERATIVE REPORT - BRIEF Name: Tariq Sawant Date: 11/24/2024 Time: 1:03 AM Location: [facility] Service: Neurosurgery Date of Operation: 11/24/2024 Pre-op Diagnosis: Acute ischemic stroke Left middle cerebral artery occlusion Post-op Diagnosis: complete recanalization of the Left middle cerebral artery (TICI 3) Operation: Mechanical thrombectomy 3-vessel cerebral angiogram Surgeon: Peter Blas MD Assistants: None Anesthesia: Monitored Local Anesthesia with Sedation General Scrub Nurse: Misa Mcmanus RN Art Objects Supervisor: Renee Noriega RN Glass Laminating Operator: Ami Hsu RT Scrub Person: Maria Dolores Douglas RN (If conscious sedation was employed see above Sedation RN for trained observer) Total intraservice time: * Missing case tracking time(s) * Apparent Intraoperative Complications: None. Patient Condition: Stable. Disposition: Intensive Care Unit. Attestation: I performed the procedure. Peter Blas MD Staff Neurosurgeon Endovascular and Cerebrovascular Neurosurgery [place], [place] documented in this encounter Miscellaneous Notes * Care Plan - Sabra Mancuso RN - 12/02/2024 4:38 PM EDT Clinical Goal(s): Patient will remain free from falls throughout the shift (12/02/24 0700) Possible barriers to meeting goal(s)/advancing plan of care: weakness Stability of the patient: Moderately stable - low risk of patient condition declining or worsening Summary regarding today's goal(s): Met: patient remained free from falls throughout the shift Recommendations: continue hourly rounding, continue implementing fall preacutions * Ancillary Progress Note - Christiane Hope RN - 12/02/2024 1:15 PM EDT CARE MANAGEMENT - ADULT DISCHARGE NOTE [facility] [address] Name: Tariq Sawant Location: [facility] A463/B Date: 12/02/2024 Time: 1:16 PM The following coordination of care and discharge plan has been coordinated with the care team, patient, family and/or caregiver according to the patients’ needs and preferences. Discharge Discharge Second Notice Important Message from Medicare delivered: Not Applicable (12/02/241313) Was Caregiver/Family/Facility contacted regarding discharge: Yes (12/02/241313) Discharge Transportation: Personal Vehicle (12/02/241313) Date of scheduled discharge transportation: 12/02/24 (12/02/241313) Time of scheduled discharge transportation: 1800 (12/02/241313) Patient declined post-hospital transition of care recommendation: N/A (12/02/241313) Final Discharge Plan (Complete only at time of Discharge): IP Rehab (12/02/241314) Destination - Admitted Since 11/23/2024 Service Provider Services Address Phone Fax Patient Preferred Last Updated [facility] [address] [place] [id number] -- Christiane Hope, ARLENE 12/02/2024 1316 Narrative: Discharge destination time-out called during BOOST rounds, all parties agreeable with transition plan of care. I have conducted the discharge appointment with the family (ph: ), Care Management, nursing, and provider on 12/02/2024 at 1:17 PM. This discussion occurred phone and BOOST. Meds to beds offered: no. The following post care is planned: SNF/IRF. I encouraged the patient and/or family to call the hospital with any questions or concerns about the hospital admission. CM reached out to friend, Danna on transport. She is able to be at bedside at 1800 tonight to transport to [facility]. Facility is able to accept in the evening. Service and nursing updated. * Pt Handout (on AVS) - Linda Waddell RPh - 12/02/2024 11:32 AM EDT Images from the original note were not included. Enoxaparin: How to Inject a Dose Subcutaneously with the Prefilled Syringe - Video Let's take a minute to talk about how to inject a dose of enoxaparin. This medicine comes in a prefilled syringe with a very small needle. You will inject the dose into the natural layer of fat just under the skin. To view the video go to this web address: [email or web address] Or, scan this QR code with your smart phone © 2024 [employer]. All Rights Reserved. * Pt Handout (on AVS) - Linda Waddell RPh - 12/02/2024 11:32 AM EDT [id number] Enoxaparin Injection Brand Name(s): Lovenox®; also available generically IMPORTANT WARNING: If you have epidural or spinal anesthesia or a spinal puncture while taking a 'blood thinner' such as enoxaparin, you are at risk for having a blood clot form in or around your spine that could causeyou to become paralyzed. Tell your doctor if you are taking other anticoagulants ('blood thinners')such as warfarin (Coumadin), anagrelide (Agrylin), aspirin or nonsteroidal anti-inflammatory drugs (ibuprofen, naproxen), cilostazol (Pletal), clopidogrel (Plavix), dipyridamole (Persantine), eptifibatide (Integrilin), prasugrel (Effient), sulfinpyrazone (Anturane), ticlopidine (Ticlid), and tirofiban (Aggrastat). If you experience any of the following symptoms, call your doctor immediately: numbness, tingling, leg weakness or paralysis, and loss of control over your bladder or bowels. Talk to your doctor about the risk of taking enoxaparin. Keep all appointments with your doctor. WHY is this medicine prescribed? Enoxaparin is used to prevent blood clots in the leg in patients who are on bedrest or who are having hip replacement, knee replacement, or stomach surgery. It is used in combination with aspirin to prevent complications from angina (chest pain) and heart attacks. It is also used in combination with warfarin to treat blood clots in the leg. Enoxaparin is in a class of medications called low molecular weight heparins. It works by stopping the formation of substances that cause clots. HOW should this medicine be used? Enoxaparin comes as an injection in a syringe to be injected just under the skin (subcutaneously) but not into your muscle. It is usually given twice a day. You will probably begin using the drug while you are in the hospital and then use it for a total of 10 to 14 days. Follow the directions on your prescription label carefully, and ask your doctor or pharmacist to explain any part you do not understand. Use enoxaparin exactly as directed. Do not inject more or less of it or inject it more often than prescribed by your doctor. Continue to use enoxaparin even if you feel well. Do not stop taking enoxaparin without talking to your doctor. Your healthcare provider will teach you how to give yourself the shot or arrangements will be made for someone else to give you the shot. Enoxaparin is usually injected in the stomach area. You must use a different area of the stomach each time you give the shot. If you have questions about where to give the shot, ask your healthcare provider. Each syringe has enough drug in it for one shot. Do not use the syringe and needle more than one time. Your doctor, pharmacist, or health care provider will tell you how to dispose of used needles and syringes to avoid accidental injury. Keep syringes and needles out of reach of children. To inject enoxaparin, follow these instructions: · Wash your hands and the area of skin where you will give the shot. · Look at the syringe to be sure the drug is clear and colorless or pale yellow. · Take the cap off the needle. Do not push any air or drug out of the syringe before giving the shot unless your healthcare provider tells you to. · Lie down and pinch a fold of skin between your finger and thumb. Push the entire needle into theskin and then press down on the syringe plunger to inject the drug. Hold onto the skin the entire time you give the shot. Do not rub the site after you give the shot. Are there OTHER USES for this medicine? This medication may be prescribed for other uses; ask your doctor or pharmacist for more information. What SPECIAL PRECAUTIONS should I follow? Before taking enoxaparin, · tell your doctor and pharmacist if you are allergic to enoxaparin, heparin, any other drugs, or pork products. · tell your doctor and pharmacist what prescription and nonprescription medications, vitamins, nutritional supplements, and herbal products you are taking or plan to take while receiving enoxaparin.Your doctor may need to change the doses of your medications or monitor you carefully for side effects. · the following nonprescription products may interact with enoxaparin: aspirin and nonsteroidal anti-inflammatory drugs (NSAIDs) such as ibuprofen (Advil, Motrin, others) and naproxen (Aleve, Naprosyn, others). Be sure to let your doctor and pharmacist know that you are taking these medications before you start receiving enoxaparin. Do not start any of these medications while receiving enoxaparin without discussing with your healthcare provider. · tell your doctor if you have an artificial heart valve and if you have or have ever had kidney disease, an infection in your heart, a stroke, a bleeding disorder, ulcers, or a low platelet count. · tell your doctor if you are , plan to become , or are breast- feeding. If you become while taking enoxaparin, call your doctor. · if you are having surgery, including dental surgery, tell the doctor or dentist that you are taking enoxaparin. What should I do IF I FORGET to take a dose? Inject the missed dose as soon as you remember it. However, if it is almost time for the next dose,skip the missed dose and continue your regular dosing schedule. Do not inject a double dose to makeup for a missed one. What SIDE EFFECTS can this medicine cause? If you experience any of the following symptoms or those listed in the IMPORTANT WARNING section, call your doctor immediately: · unusual bleeding or bruising · black or bloody stools · blood in urine · swollen ankles and/or feet If you experience a serious side effect, you or your doctor may send a report to the Food and Drug Administration's (FDA) MedWatch Adverse Event Reporting program online (https://www.fda.gov/Safety/MedWatch) or by phone ( ). What should I know about STORAGE and DISPOSAL of this medication? Keep this medication out of reach of children. Store the syringes at room temperature and away fromexcess heat and moisture (not in the bathroom). Do not use the syringe if it leaks or if the fluid is dark or contains particles. Unneeded medications should be disposed of in special ways to ensure that pets, children, and otherpeople cannot consume them. However, you should not flush this medication down the toilet. Instead,the best way to dispose of your medication is through a medicine take-back program. Talk to your pharmacist or contact your local garbage/recycling department to learn about take-back programs in your community. See the FDA's Safe Disposal of Medicines website (https://goo.gl/c4Rm4p) for more information if you do not have access to a take-back program. It is important to keep all medication out of sight and reach of children as many containers (such as weekly pill minders and those for eye drops, creams, patches, and inhalers) are not child-resistant and young children can open them easily. To protect young children from poisoning, always lock safety caps and immediately place the medication in a safe location - one that is up and away and out of their sight and reach. https://www.upandaway.org What should I do in case of OVERDOSE? In case of overdose, call the poison control helpline at . Information is also available online at https://www.poisonhelp.org/help. If the victim has collapsed, had a seizure, has trouble breathing, or can't be awakened, immediately call emergency services at 911. What OTHER INFORMATION should I know? Keep all appointments with your doctor and the laboratory. Your doctor will order certain lab teststo monitor your enoxaparin therapy. Enoxaparin prevents blood from clotting so it may take longer than usual for you to stop bleeding if you are cut or injured. Avoid activities that have a high risk of causing injury. Call your doctorif bleeding is unusual. Do not let anyone else use your medication. Your prescription is probably not refillable. It is important for you to keep a written list of all of the prescription and nonprescription ([id number]) medicines you are taking, as well as any products such as vitamins, minerals, or otherdietary supplements. You should bring this list with you each time you visit a doctor or if you areadmitted to a hospital. It is also important information to carry with you in case of emergencies. This report on medications is for your information only, and is not considered individual patient advice. Because of the changing nature of drug information, please consult your physician or pharmacist about specific clinical use. The [employer] represents that the information provided hereunder was formulated with a reasonable standard of care, and in conformity with professional standards in the field. The [employer] makes no representations or warranties, express or implied, including, but not limited to, any implied warranty of merchantability and/or fitness for a particular purpose, with respect to such information and specifically disclaims all such warranties. Users are advised that decisions regarding drug therapy are complex medical decisions requiring the independent, informed decision of an appropriate health animal care attendant, and the information is provided for informational purposes only. The entire monograph for a drug should be reviewed for a thorough understanding of the drug's actions, uses and side effects. The [employer] does not endorse or recommend the use of any drug.The information is not a substitute for medical care. FS® Patient Medication Information?. © Copyright2023. The [employer]®, [address], [address], [place], [place]. All Rights Reserved. Duplication for commercial use must be authorized by [employer] [facility]. Selected Revisions: March 19, 2024. FS® Patient Medication Information?. © Copyright2024 * Pt Handout (on AVS) - Linda Waddell RPh - 12/02/2024 11:32 AM EDT Images from the original note were not included. Enoxaparin - Video This is enoxaparin. It's given as an injection. To view the video go to this web address: [email or web address] Or, scan this QR code with your smart phone © 2024 [employer]. All Rights Reserved. * Ancillary Progress Note - Christiane Hope RN - 12/02/2024 9:09 AM EDT CARE MANAGEMENT - ADULT TRANSITION NOTE [facility] [address] Name: Tariq Sawant [place] [facility] Date: 12/02/2024 Time: 9:09 AM Risk Stratification Risk Stratification Psycho Social / Medical Concerns Identified: Adjustment to illness/injury (11/25/24 1208) OBRA or OPTIONS needed for placement: No (11/25/24 1208) Readmission Risk Score: 13.68 (12/02/24 0800) AM-PAC Score With Stairs : 15 (12/01/24 2100) Caregiver Information Emergency Contacts Name Relation Home Work Mobile Dannajorge Wang Other - (no specific identity) [phone] Other Contacts Name Relation Home Work Mobile KASIA LIVINGSTON Other - (no specific identity) [phone] Linda Mojica Other - (no specific identity) [phone] Transition of Care Checklist Narrative: [facility] submitted for auth, needs P2P, by 1600 today. He has [employer]. Consult sent to [facility] for P2P. Anticipated Transportation at Discharge: family Patient/Family Expectations: IRF [facility] Transition Planning Additional Considerations: Care Management will continue to monitor and assist with discharge planning needs * Care Plan - Indy Livingston RN - 12/02/2024 2:58 AM EDT Clinical Goal(s): Pt will remain free from falls (12/01/24 1900) Possible barriers to meeting goal(s)/advancing plan of care: weakness Stability of the patient: Moderately stable - low risk of patient condition declining or worsening Summary regarding today's goal(s): Met: pt remained free from falls Recommendations: fall precautions, hourly rounding, pain mgmt * Ancillary Progress Note - Walter Adorno II, RDN - 12/01/2024 4:09 PM EDT CLINICAL NUTRITION ADULT RISK ASSESSMENT [address] [address] Name: Tariq Sawant [place] [facility] [place] Date: 12/01/2024 Time: 4:09 PM How patient was identified (select 2): Medical record number and Name Tariq Sawant is a 54 year old male being assessed for clinical nutrition risk related to follow-up Primary diagnosis: admitted on 11/23/2024 and presents with a left M1 occlusion. s/p TICI 3 thrombectomy on 11/[address] Blas. C/b right intraperitoneal hematoma adjacent to bladder. Other pertinent information: Patient now on room air. Has good appetite and eats well on regular diet when not NPO. Still with expressive aphasia. Phosphorus now WNL. 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 Anthropometrics Measurements Admission weight (for dietitians): 125.3 kg Height: 175.3 cm (5' 9.02") (11/24/24 1402) Weight: 121.7 kg (268 lb 3.2 oz) (12/01/24 0237) Body mass index is 39.59 kg/m². Usual Body Weight or EDW for Dialysis Patients: 120-125 kg Diet: NPO Previously followed diet: Regular Food Allergies/Intolerances: none Oral Nutrition Supplement (ONS): none Pertinent medications/vitamins/minerals/supplements: Novolog, Miralax, senna- docusate, warfarin RISK FACTORS: Adult Energy Intake: No significant decrease Interpretation of Weight Change: No recent/significant weight change Skin: Surgical incision: bilateral groin NUTRITION RISK CATEGORY: Nutrition Risk Category: Low/Moderate (0-1 factors) Clinical Nutrition Recommendations: Diet: Advance diet when clinically feasible NUTRITION INTERVENTION/PLAN: Risk/Re-risk Assessment completed. Continue to monitor NPO/clear liquid status Will follow and adjust nutritional plan as medical condition requires. Please contact for change(s)in patient condition requiring earlier intervention. * Progress Notes - Non-Billable - Jordan Felix, - 12/01/2024 3:55 PM EDT Brief Cardiology Note: Date of initial consult: 11/28/24 Reason for consult: "Pt s/p cardioembolic stroke (he was on Eliquis with mechanical aortic valve). He has mechanical valve since 1998 with new severe prosthetic stenosis and enlarging aortic aneurysm. Seen by CT surgery, needs cardiac workup for possible combined surgery. " Patient Summary: 54 YO M admitted with left MCA stroke s/p mechanical thrombectomy c/b R groin pseudoaneurysm. Cardiology has been consulted for guidance on further evaluation for mechanical aortic valve stenosis. PMH includes: Mechanical aortic valve 1998 on apixaban History of left MCA CVA (2004 with residual right side hemiparesis) Dyslipidemia HTN Borderline class 3 obesity (Body mass index is 39.9 kg/m².) Patient presented with expressive aphasia after a fall with head strike. CTA showed left MCA subocclusive thrombus. Underwent mechanical thrombectomy. MRI confirmed acute left MCA stroke with moderate infarct in the left temporal left frontal lobes. TTE raised concern for severe mechanical aortic valve prosthetic stenosis. Interval history: Velocity across the aortic valve have decreased on repeat limited TTE today 12/01/2024. Cardiac CT was performed which showed normal function of the mechanical valve. Labs and Studies: TTE 12/01/24 Interpretation Summary The examination is limited quality but adequate for evaluation of the referral indication. The qualitative LV ejection fraction is 50-54% (normal). There is a moderate sized apical wall motion abnormality with akinesis of the segments. There is an aortic valve mechanical prosthesis present. The peak aortic valve velocity recorded on this exam is lower at 3.9 m/s with a mean gradient of [address] valve study Mechanical aortic valve. There is normal leaflet motion.There is no evidence of prosthetic dehiscence. Given significant streak artifact , microthrombi could not excluded. 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 Any thrombus that was there seems to have resolved with anticoagulation. The cause of all this was patient being on apixaban instead of warfarin. Warfarin is the only option for anticoagulation for this patient. 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 Thank you for allowing us to participate in the care of this patient. Please call with any questions. Case was discussed with attending physician Dr. Oscar Felix DO Cardiovascular Disease Fellow, PGY-4 * Ancillary Progress Note - Chani Buckley COTA/L - 12/01/2024 12:45 PM EDT PROGRESS NOTE - Occupational Therapy [facility] [address] Name: Tariq COLLINSN: [id number] [place] [facility] Date: 12/01/2024 Time: 12:45 PM Tariq Sawant is a 54 year old male. Patient Status: Inpatient Insurance: Payor: HU[employer]NA MEDICARE ADVANTAGE Plan: [employer] PPO Product Type: *No Product type* Payor: [employer] Private [place] Plan: [employer] [facility] Product Type: HMO Patient Seen: at bedside, nursing cleared patient for therapy Patient Identified By: Name, ID Band and Date Diagnosis: R IPH (12/01/241244) Status of treatment: Treatment completed (12/01/241244) Orders: OT evaluation and treatment (11/24/24 135) Weight Bearing Status: Weight bearing as tolerated (12/01/241244) Precautions: Alarms;Falls;Safety (12/01/241244) Total Treatment Time: 34 (12/01/241244) Subjective: "Hospital" Pain: No complaints of pain Observations Consciousness: Alert (12/01/24 124) Orientation: Oriented times 4 (12/01/241244) Psychosocial: Patient can communicate basic needs;Patient cannot converse in a social setting. (limited 2/2 aphasia; able to verbalize some words; can also write) (11/24/24 135) Sitting posture: Forward head;Rounded shoulders (11/24/24 1353) Standing posture: Forward head;Rounded shoulders (11/24/24 1353) Safety awareness: The Patient verbalizes insight of current deficits.;Needs cueing supervision. (11/24/24 1353) Other Findings Endurance: Fair (11/24/24 1353) Light touch sensation: (unclear - pt gave conflicting answers) (11/24/24 1353) Coordination: LUE;Intact;RUE;Impaired (11/24/24 135) Tone: RUE;Increase tone (wrist, elbow, shoulder) (11/24/24 135) Current Functional Status: Activities of Daily Living: Self Care Grooming: Supervision (Please comment) (brush teeth and wash face) (12/01/24 124) Dressing Upper Body: Supervision (Please comment) (manage gown) (12/01/24 124) Lower Body: Supervision (Please comment) ((close supervision)to occasional contact guard manage socks) (12/01/241244) Functional Ambulation Assistive Device: No device (RETAIL SECURITY PROFESSIONAL) (12/01/241244) Distance in feet:: (15 and 10) (12/01/241244) Level of Assistance: Minimal Assistance (to mod A with chair follow) (12/01/241244) Bed Mobility Supine-Sit: Supervision (Please comment) (12/01/241244) OT Transfers Sit-Stand: Minimal Assistance (12/01/241244) Stand-Sit: Minimal Assistance (12/01/241244) Balance Sit (Static): Fair (12/01/241244) Sit (Dynamic): Fair (-) (12/01/241244) Stand (Static): Poor (+) (12/01/241244) Stand (Dynamic): Poor (+ to poor) (12/01/241244) Patient Education Education Topic: Role of OT;Plan of care goals (12/01/241244) Review of Precautions: Safety;Fall (12/01/241244) Method of Education: Verbalized to patient (12/01/241244) Education Provided to: Patient (12/01/241244) Response to Education: Receptive and agreeable to education (12/01/241244) Barriers to learning: Medical status (12/01/241244) Preferred learning method: Combination (12/01/241244) Alarm Status Patient positioned in: Chair (12/01/241244) With: Pressure pad alarm intact and functioning and call sim in reach (12/01/241244) Following session patient seated OOB in chair with chair alarm activated and cord plugged into callbell system. Treatment Provided: Self Detention Management Trainin minutes Therapeutic Activity: 20 minutes Deficits requiring O.T. treatment needs: ADL/self-care;Balance;Endurance;Fine motor coordination;Functional mobility;Safety;Upper extremity strength;Upper extremity range of motion;Weakness () Assessment: Patient lying supine in bed upon entry. Patient agreeable to therapy. Patient completedbed mobility and sat on EOB. He then completed ADLs at above levels. He was fully oriented and ableto verbalize all answers. Patient then stood and walked out into maldonado with RETAIL SECURITY PROFESSIONAL. Patient sat into recliner to rest then stood and walked further, with chair follow and required multiple seated rest breaks d/t increased fatigue and increased respirations. Patient then returned to room, and made comfortable in recliner with all needs met. Please consider post-acute care services which may include home health, snf, outpatient therapy or inpatient rehabilitation. The level of care will be determined in collaboration with patient, family/caregiver and care team members. Plan: continue per plan of care Anticipated Frequency (on eval): 3 to 5 times per week (12/01/24 124) Equipment Equipment used in Therapy: Bedside commode (11/24/24 4363) AM-PAC Help From Another Person Eating Meals: A little (12/01/241244) Help From Another Person Taking Care of Personal Grooming: A little (12/01/241244) Help From Another Person To Put On/Take Off Upper Body Clothing: A little (12/01/241244) Help From Another Person To Put On/Take Off Lower Body Clothing: A little (12/01/241244) Help From Another Person Toileting: A lot (12/01/241244) Help From Another Person Bathing: A lot (12/01/24 124) OT AM-PAC Score: 16 (12/01/241244) OT AM-PAC t-Scale Score: 35.96 (12/01/241244) HLM (Highest Level of Mobility) Goal: Level 4 move to chair/commode (12/01/24 1209) A portion of this AM-PAC assessment not scored based on functional assessment; rather clinical decision making utilized based on current findings and/or prior level of function. Please refer to future AM-PAC calculations of functional ability as they become available. * Ancillary Progress Note - Mee Santillan PTA - 12/01/2024 12:09 PM EDT PROGRESS NOTE - Physical Therapy [facility] [address] Name: Tariq J Jese [place] [facility] Date: 12/01/2024 Time: 12:09 PM Tariq Sawant is a/an 54 year old male. Patient Status: Inpatient Insurance: Payor: HU[employer]NA MEDICARE ADVANTAGE Plan: [employer] PPO Product Type: *No Product type* Payor: [employer] Private [place] Plan: [employer] Private [facility] Product Type: HMO Patient Seen: at bedside, nursing cleared patient for therapy Patient Identified By: Name, ID Band and Date Diagnosis: aphasia, ischemic stroke (12/01/241208) Status of treatment: Treatment completed (12/01/241208) Orders: PT evaluation and treatment (12/01/241208) Weight Bearing Status: Weight bearing as tolerated (12/01/241208) Precautions: Alarms;Falls;Safety (12/01/241208) Total Treatment Time--free text: 34 (12/01/241208) Subjective: Patient stated, "hospital." Pain: No complaints of pain P.T. Bed Mobility Supine-Sit: Supervision (12/01/241208) Transfers Sit-Stand: Minimal Assistance (12/01/241208) Stand-Sit: Minimal Assistance (12/01/241208) Ambulation: Distance ambulated (feet): 20 + 15 + 10 Assistive Device: No device Assist: Minimal Assistance to moderate assistance Balance Sit (Static): Fair (12/01/241208) Sit (Dynamic): (fair -) (12/01/241208) Stand (Static): (poor +) (12/01/241208) Stand (Dynamic): (poor + to poor) (12/01/241208) Patient and or Family Goal(s): to get well Topic of Education: Safety with mobility Method of Education: Verbal discussion and explanation provided to patient: verbalized understanding and or agreement of this information and demonstrated the exercise and or task Treatment Provided: Therapeutic Activities 14 minutes: bed mobility training transfer training Gait Training 20 minutes: gait training with rolling walker Alarm Status Patient positioned in: Chair (12/01/241208) With: Pressure pad alarm intact and functioning and call sim in reach (12/01/241208) Following session patient seated OOB in chair with chair alarm activated and cord plugged into callbell system. Patient Education Review of Precautions: Safety;Fall (12/01/241208) Safety Awareness: Patient verbalizes insight of current deficits;Patient can communicate basic needs;Needs cueing supervision (12/01/241208) Preferred learning method: Combination (12/01/241208) Barriers to learning: Medical Status;Speaking (12/01/241208) Method of Education: Verbalized to patient;Patient demonstrated task (12/01/241208) Assessment: Patient was seen supine in bed upon arrival and agreeable to work with physical therapyservices. Patient continues to demonstrate difficulty with word finding and answer questions with yes/no answers appearing to be accurate this session. Patient performed bed mobility with supervisionand 4 sit to stand transfers from the chair with minimal assistance. Patient also ambulated 20, 15, and 10 feet in the hallway with a chair follow and initially a minimal assistance regressing to moderate assistance when fatigued. Throughout ambulation patient required frequent seated rest breaks due to rapid fatigue with increased respiratory rate and demonstrated decreased R heel strike, increased L lateral leaning to allow for RLE clearance during L stand phase, and decreased step length on the L LE all requiring increased verbal, visual, and tactile cues to correct. Patient continues to progress when working with physical therapy services by increasing ambulatory distances and improving activity tolerance, however requires frequent rest breaks and assistance for safe mobility. Ended session with patient reclined in the chair with pillows for comfort, pressure pad alarm activated, and call sim within reach. Patient would continue to benefit from skilled physical therapy services to reach established goals and address deficits stated above. Please consider post-acute care services which may include home health, snf, outpatient therapy or inpatient rehabilitation. The level of care will be determined in collaboration with patient, family/caregiver and care team members. Deficits requiring P.T. treatment needs: Safety;Mobility;Balance;Weakness;Endurance;Lower extremitystrength (12/01/241208) Plan: Continue with current treatment plan established on evaluation. AM PAC Score with Stairs: 15 A portion of this AM-PAC assessment not scored based on functional assessment; rather clinical decision making utilized based on current findings and/or prior level of function. Please refer to future AM-PAC calculations of functional ability as they become available. * Ancillary Progress Note - Christiane Hope RN - 12/01/2024 9:56 AM EDT POST ACUTE CARE CARE MANAGEMENT [address] [address] Name: Tariq Sawant [place] [facility]: 12/01/2024 Time: 9:56 AM Post-Acute Care Patient General Information Living Quarters: House (11/25/241207) How many stories is the dwelling?: One Story (11/25/241207) Number of steps to enter living quarters:: 0 (11/25/241207) Location of bathroom(s): All floors or Single story dwelling (11/25/241207) History of falling: Yes (11/30/241999) What was your living situation prior to admission/observation?: Independently;Alone (11/25/241207) Do you have any children, pets, or other dependents that you are currently caring for?: No (11/25/241207) AM-PAC Score With Stairs : 18 (12/01/24 0237) Post-Acute Care with AM-PAC < 17.99 Rehab diagnosis: Stroke (12/01/24954) Inpatient Rehab Facility (IRF) Guidelines (1-8): Requires face to face interaction with a rehabilitative physician at a minimum of 3 times per week;Requires access to a rehabilitative RN 23/03;Able toparticipate in intensive therapy program consisting of treatment at a minimum of 3 hours per day 5 days per week;Indicate therapy modalities;Able to participate in rehabilitative therapy program including realistic goals with predictable timeframes for completion of goals;Rehabilitation intensity and frequency makes the services impracticable to obtain in less intense setting;Requires coordination care conference at least 1 time/week;Frequent assessment of progression toward goals (12/01/24954) Therapy Modalities: Physical Therapy;Occupational Therapy;Speech Therapy (12/01/24954) Inpatient Rehab Facility (IRF) Guidelines (9-12): Assistance with resolution of issues impeding rehabilitative progress;Frequent monitoring and or revision of treatment plan;Frequent re-assessment ofestablished rehabilitative progress;Established rehabilitative progress (12/01/24954) Meets criteria for Inpatient Rehab Facility (IRF): Patient meets criteria for IRF (12/01/24954) Referral was sent to [facility], they have been following. Anticipate ready after Cardiac CT. Auth will be submitted, van vs friends to transport. * Ancillary Progress Note - Christiane Hope RN - 12/01/2024 9:50 AM EDT CARE MANAGEMENT - ADULT TRANSITION NOTE [address] [address] Name: Tariq Sawant [place] [facility] Date: 12/01/2024 Time: 9:50 AM Risk Stratification Risk Stratification Psycho Social / Medical Concerns Identified: Adjustment to illness/injury (11/25/24 1208) OBRA or OPTIONS needed for placement: No (11/25/24 1208) Readmission Risk Score: 11.87 (12/01/24 0800) AM-PAC Score With Stairs : 18 (12/01/24 0237) Caregiver Information Emergency Contacts Name Relation Home Work Mobile Danna Wang Other - (no specific identity) [phone] Other Contacts Name Relation Home Work Mobile KASIA LIVINGSTON Other - (no specific identity) [phone] Linda Mojica Other - (no specific identity) [phone] Transition of Care Checklist Narrative: Tariq will have Cardiac CT today, anticipate all outpatient follow ups with cardiology. Will discharge on Lovenox, [facility] accepted, will begin auth today. Will need updated therapytreatment today. Anticipated Transportation at Discharge: friends vs [facility] van Patient/Family Expectations: IRF Transition Planning Additional Considerations: Care Management will continue to monitor and assist with discharge planning needs * Care Plan - Indy Livingston RN - 12/01/2024 1:05 AM EDT Clinical Goal(s): Pt will remain free from falls (11/30/24 1900) Possible barriers to meeting goal(s)/advancing plan of care: weakness Stability of the patient: Moderately stable - low risk of patient condition declining or worsening Summary regarding today's goal(s): Met: pt remained free from falls Recommendations: fall precautions, hourly rounding, masters mgmt * Care Plan - Laury Cotto RN - 11/30/2024 5:48 PM EDT Clinical Goal(s): patient will remain free from falls or injury during this shift (11/30/24 0700) Possible barriers to meeting goal(s)/advancing plan of care: weakness, stroke dx Stability of the patient: Moderately stable - low risk of patient condition declining or worsening Summary regarding today's goal(s): Met: met Recommendations: continue fall precautions and purposeful hourly rounding * Communication - Jordan Felix DO - 11/30/2024 5:36 PM EDT Brief Cardiology communication note LI today was unsuccessful at providing diagnostic images Will plan for cardiac CT 12/01/24 to further investigate mechanical aortic valve thrombus/stenosis Recs: Cardiac CT (ordered) Metoprolol tartrate 100 mg HS and in a.m.. Heart rate must be 60-70 for this study (ordered) Consider Isolyte 100 mL/hour x 10 hours for prerenal KEMAR Discussed with primary team Jordan Felix DO Cardiovascular Disease Fellow * Care Plan - Indira Navas RN - 11/30/2024 2:45 AM EDT Clinical Goal(s): Patient will maintain safety (11/29/24 2350) Possible barriers to meeting goal(s)/advancing plan of care: Pain Stability of the patient: Moderately stable - low risk of patient condition declining or worsening Summary regarding today's goal(s): Met: Recommendations: Continue hourly rounding * Care Plan - Elen Hoffmann RN - 11/29/2024 4:34 PM EDT Clinical Goal(s): patient will remain free from falls (11/29/24 0700) Possible barriers to meeting goal(s)/advancing plan of care: change in mental status Stability of the patient: Moderately stable - low risk of patient condition declining or worsening Summary regarding today's goal(s): Met: patient ambulated safely with nursing and PT/OT staff today in maldonado and to restroom Recommendations: continue to encourage ambulation and use of call sim for staff assistance * Pt Handout (on AVS) - Linda Waddell RPh - 11/29/2024 2:45 PM EDT Images from the original note were not included. Your Health Checklist: Taking Warfarin Safely - Video Follow this checklist to properly and safely take warfarin. To view the video go to this web address: [email or web address] Or, scan this QR code with your smart phone © [employer] * Pt Handout (on AVS) - Linda Waddell RPh - 11/29/2024 2:45 PM EDT [id number] Warfarin Brand Name(s): Coumadin®, Jantoven®; also available generically IMPORTANT WARNING: Warfarin may cause severe bleeding that can be life-threatening and even cause . Tell your doctor if you have or have ever had a blood or bleeding disorder; bleeding problems, especially in yourstomach or your esophagus (tube from the throat to the stomach), intestines, urinary tract or bladder, or lungs; high blood pressure; heart attack; angina (chest pain or pressure); heart disease; pericarditis (swelling of the lining (sac) around the heart); endocarditis (infection of one or more heart valves); a stroke or ministroke; aneurysm (weakening or tearing of an artery or vein); anemia (low number of red blood cells in the blood); cancer; chronic diarrhea; or kidney, or liver disease. Also tell your doctor if you fall often or have had a recent serious injury or surgery. Bleeding is more likely during warfarin treatment for people over 65 years of age, and it is also more likely during the first month of warfarin treatment. Bleeding is also more likely to occur for people who take high doses of warfarin, or take this medication for a long time. The risk for bleeding while takingwarfarin is also higher for people participating in an activity or sport that may result in seriousinjury. Tell your doctor and pharmacist if you are taking or plan to take any prescription or nonprescription medications, vitamins, nutritional supplements, and herbal or botanical products (See SPECIAL PRECAUTIONS), as some of these products may increase the risk for bleeding while you are takingwarfarin. If you experience any of the following symptoms, call your doctor immediately: pain, swelling, or discomfort, bleeding from a cut that does not stop in the usual amount of time, nosebleeds or bleeding from your gums, coughing up or vomiting blood or material that looks like coffee grounds, unusual bleeding or bruising, increased menstrual flow or vaginal bleeding, pink, red, or dark brown urine, red or tarry black bowel movements, headache, dizziness, or weakness. Some people may respond differently to warfarin based on their heredity or genetic make-up. Your doctor may order a blood test to help find the dose of warfarin that is best for you. Warfarin prevents blood from clotting so it may take longer than usual for you to stop bleeding if you are cut or injured. Avoid activities or sports that have a high risk of causing injury. Call your doctor if bleeding is unusual or if you fall and get hurt, especially if you hit your head. Keep all appointments with your doctor and the laboratory. Your doctor will order a blood test (PT [prothrombin test] reported as INR [international normalized ratio] value) regularly to check your body's response to warfarin. If your doctor tells you to stop taking warfarin, the effects of this medication may last for 2 to 5 days after you stop taking it. Your doctor or pharmacist will give you the animal physiologist's patient information sheet (Medication Guide) when you begin treatment with warfarin and each time you refill your prescription. Read the information carefully and ask your doctor or pharmacist if you have any questions. You can also visit the Food and Drug Administration (FDA) website (https://www.fda.gov/downloads/Drugs/DrugSafety/vyf437438.pdf) or the animal physiologist's website to obtain the Medication Guide. Talk to your doctor about the risk(s) of taking warfarin. WHY is this medicine prescribed? Warfarin is used to prevent blood clots from forming or growing larger in your blood and blood vessels. It is prescribed for people with certain types of irregular heartbeat, people with prosthetic (replacement or mechanical) heart valves, and people who have suffered a heart attack. Warfarin is also used to treat or prevent venous thrombosis (swelling and blood clot in a vein) and pulmonary embolism (a blood clot in the lung). Warfarin is in a class of medications called anticoagulants ('bloodthinners'). It works by decreasing the clotting ability of the blood. HOW should this medicine be used? Warfarin comes as a tablet to take by mouth. It is usually taken once a day with or without food. Take warfarin at around the same time every day. Follow the directions on your prescription label carefully, and ask your doctor or pharmacist to explain any part you do not understand. Take warfarin exactly as directed. Do not take more or less of it or take it more often than prescribed by your doctor. Call your doctor immediately if you take more than your prescribed dose of warfarin. Your doctor will probably start you on a low dose of warfarin and gradually increase or decrease your dose based on the results of your blood tests. Make sure you understand any new dosing instructions from your doctor. Continue to take warfarin even if you feel well. Do not stop taking warfarin without talking to your doctor. Are there OTHER USES for this medicine? This medication may be prescribed for other uses; ask your doctor or pharmacist for more information. What SPECIAL PRECAUTIONS should I follow? Before taking warfarin, · tell your doctor and pharmacist if you are allergic to warfarin, any other medications, or any of the ingredients in warfarin tablets. Ask your pharmacist or check the Medication Guide for a list of the ingredients. · do not take two or more medications that contain warfarin at the same time. Be sure to check with your doctor or pharmacist if you are uncertain if a medication contains warfarin or warfarin sodium. · tell your doctor and pharmacist what prescription and nonprescription medications, vitamins, andnutritional supplements you are taking or plan to take while taking warfarin. Your doctor may change the doses of your medications or monitor you carefully for side effects. · the following nonprescription or herbal products may interact with warfarin: coenzyme Q10 (Ubidecarenone), Echinacea, garlic, Ginkgo biloba, ginseng, goldenseal, and Marissa's wort; omeprazole (Prilosec); famotidine (Pepcid AC); aspirin and nonsteroidal anti-inflammatory drugs (NSAIDS) such as ibuprofen (Advil, Motrin, others) and naproxen (Aleve). Be sure to let your doctor and pharmacist know that you are taking these medications before you start taking warfarin. Do not start any of thesemedications while taking warfarin without discussing with your healthcare provider. · tell your doctor if you have or have ever had diabetes. Also tell your doctor if you have an infection, a gastrointestinal illness such as diarrhea, or sprue (an allergic reaction to protein foundin grains that causes diarrhea), or an indwelling catheter (a flexible plastic tube that is placed into the bladder to allow the urine to drain out). · Tell your doctor if you are , think you might be , or plan to become while taking warfarin. women should not take warfarin unless they have a mechanical heart valve. Talk to your doctor about the use of effective control while taking warfarin. If you become while taking warfarin, call your doctor immediately. Warfarin may harm the fetus. · tell your doctor if you are breast-feeding. · if you are having surgery, including dental surgery, or any type of medical or dental procedure,tell the doctor or dentist that you are taking warfarin. Your doctor may tell you to stop taking warfarin before the surgery or procedure or change your dosage of warfarin before the surgery or procedure. Follow your doctor's directions carefully and keep all appointments with the laboratory if your doctor orders blood tests to find the best dose of warfarin for you. · ask your doctor about the safe use of alcoholic beverages while you are taking warfarin. · tell your doctor if you use tobacco products. Cigarette smoking may decrease the effectiveness of this medication. What SPECIAL DIETARY instructions should I follow? Eat a normal, healthy diet. Some foods and beverages, particularly those that contain vitamin K, can affect how warfarin works for you. Ask your doctor or pharmacist for a list of foods that contain vitamin K. Eat consistent amounts of vitamin K-containing food on a kzoa-cv-stpt basis. Do not eat large amounts of leafy, green vegetables or certain vegetable oils that contain large amounts of vitamin K. Be sure to talk to your doctor before you make any changes in your diet. Talk to your doctor about eating grapefruit and drinking grapefruit juice while taking this medication. What should I do IF I FORGET to take a dose? Take the missed dose as soon as you remember it, if it is the same day that you were to take the dose. Do not take a double dose the next day to make up for a missed one. Call your doctor if you domingo dose of warfarin. What SIDE EFFECTS can this medicine cause? If you experience any of the following symptoms, or those listed in the IMPORTANT WARNING section, call your doctor immediately: · hives · rash · itching · difficulty breathing or swallowing · swelling of the face, throat, tongue, lips, or eyes · hoarseness · chest pain or pressure · swelling of the hands, feet, ankles, or lower legs · fever · infection · nausea · vomiting · diarrhea · extreme tiredness · lack of energy · loss of appetite · pain in the upper right part of the stomach · yellowing of the skin or eyes · flu-like symptoms You should know that warfarin may cause necrosis or gangrene ( of skin or other body tissues).Call your doctor immediately if you notice a purplish or darkened color to your skin, skin changes,ulcers, or an unusual problem in any area of your skin or body, or if you have a severe pain that occurs suddenly, or color or temperature change in any area of your body. Call your doctor immediately if your toes become painful or become purple or dark in color. You may need medical care right away to prevent amputation (removal) of your affected body part. Warfarin may cause other side effects. Call your doctor if you have any unusual problems while taking this medication. What should I know about STORAGE and DISPOSAL of this medication? Keep this medication in the container it came in, tightly closed, and out of reach of children. Store it at room temperature and away from excess heat, moisture (not in the bathroom), and light. Unneeded medications should be disposed of in special ways to ensure that pets, children, and otherpeople cannot consume them. However, you should not flush this medication down the toilet. Instead,the best way to dispose of your medication is through a medicine take-back program. Talk to your pharmacist or contact your local garbage/recycling department to learn about take-back programs in your community. See the FDA's Safe Disposal of Medicines website (https://goo.gl/c4Rm4p) for more information if you do not have access to a take-back program. It is important to keep all medication out of sight and reach of children as many containers (such as weekly pill minders and those for eye drops, creams, patches, and inhalers) are not child-resistant and young children can open them easily. To protect young children from poisoning, always lock safety caps and immediately place the medication in a safe location - one that is up and away and out of their sight and reach. https://www.upandaway.org What should I do in case of OVERDOSE? In case of overdose, call the poison control helpline at . Information is also available online at https://www.poisonhelp.org/help. If the victim has collapsed, had a seizure, has trouble breathing, or can't be awakened, immediately call emergency services at 701. Symptoms of overdose may include the following: · bloody or red, or tarry bowel movements · spitting or coughing up blood · heavy bleeding with your menstrual period · pink, red, or dark brown urine · coughing up or vomiting material that looks like coffee grounds · small, flat, round red spots under the skin · unusual bruising or bleeding · continued oozing or bleeding from minor cuts What OTHER INFORMATION should I know? Carry an identification card or wear a bracelet stating that you take warfarin. Ask your pharmacistor doctor how to obtain this card or bracelet. List your name, medical problems, medications and dosages, and doctor's name and telephone number on the card. Tell all your healthcare providers that you take warfarin. Do not let anyone else take your medication. Ask your pharmacist any questions you have about refilling your prescription. It is important for you to keep a written list of all of the prescription and nonprescription (ntlm-ncg-zqdwbjo) medicines you are taking, as well as any products such as vitamins, minerals, or otherdietary supplements. You should bring this list with you each time you visit a doctor or if you areadmitted to a hospital. It is also important information to carry with you in case of emergencies. This report on medications is for your information only, and is not considered individual patient advice. Because of the changing nature of drug information, please consult your physician or pharmacist about specific clinical use. The [employer] represents that the information provided hereunder was formulated with a reasonable standard of care, and in conformity with professional standards in the field. The [employer] makes no representations or warranties, express or implied, including, but not limited to, any implied warranty of merchantability and/or fitness for a particular purpose, with respect to such information and specifically disclaims all such warranties. Users are advised that decisions regarding drug therapy are complex medical decisions requiring the independent, informed decision of an appropriate health animal care attendant, and the information is provided for informational purposes only. The entire monograph for a drug should be reviewed for a thorough understanding of the drug's actions, uses and side effects. The [employer] does not endorse or recommend the use of any drug.The information is not a substitute for medical care. FS® Patient Medication Information?. © Copyright, 2023. The [employer]®, [address], [address], [place], [place]. All Rights Reserved. Duplication for commercial use must be authorized by [facility]. Selected Revisions: February 12, 2017. FS® Patient Medication Information?. © Copyright, 2024 * Pt Handout (on AVS) - Linda Waddell RPh - 11/29/2024 2:45 PM EDT Images from the original note were not included. Warfarin - Video Let's take a minute to talk about your medication. This is warfarin, and you should take your dose as directed by your doctor. Warfarin prevents and treats blood clots. To view the video go to this web address: https://bit.DecoSnap/[email or web address] Or, scan this QR code with your smart phone © 2024 [employer]. All Rights Reserved. * Pt Handout (on AVS) - Linda Waddell RPh - 11/29/2024 2:45 PM EDT Images from the original note were not included. Coumadin - Video This is Coumadin, and you should take it exactly as directed. Coumadin is known as a "blood thinner". To view the video go to this web address: https://bit.ly/3LIykKW Or, scan this QR code with your smart phone © 2024 [employer]. All Rights Reserved. * Ancillary Progress Note - Chani Buckley COTA/L - 11/29/2024 12:18 PM EDT PROGRESS NOTE - Occupational [place] [facility] [id number] Name: Tariq Sawant [place] [facility] [place] Date: 11/29/2024 Time: 12:18 PM Tariq Sawant is a 54 year old male. Patient Status: Inpatient Insurance: Payor: [employer] MEDICARE ADVANTAGE Plan: [employer] CHOICE PPO Product Type: *No Product type* Payor: [employer] Private PA Plan: [employer] Private [facility] Product Type: HMO Patient Seen: at bedside, nursing cleared patient for therapy Patient Identified By: Name, ID Band and Date Diagnosis: R IPH (11/29/24 1218) Status of treatment: Treatment completed (11/29/241217) Orders: OT evaluation and treatment (11/24/24 1353) Weight Bearing Status: Weight bearing as tolerated (11/29/241217) Precautions: Alarms;Falls;Safety (11/29/241217) Total Treatment Time: 23 (11/29/241217) Subjective: Agreeable Pain: No complaints of pain Observations Consciousness: Alert (11/29/241217) Orientation: Person;Time (choices for time however mixed up home and hospital) (11/29/241217) Psychosocial: Patient can communicate basic needs;Patient cannot converse in a social setting. (limited 2/2 aphasia; able to verbalize some words; can also write) (11/24/24 1353) Sitting posture: Forward head;Rounded shoulders (11/24/24 1353) Standing posture: Forward head;Rounded shoulders (11/24/24 1353) Safety awareness: The Patient verbalizes insight of current deficits.;Needs cueing supervision. (11/24/24 1353) Other Findings Endurance: Fair (11/24/24 1353) Light touch sensation: (unclear - pt gave conflicting answers) (11/24/24 1353) Coordination: LUE;Intact;RUE;Impaired (11/24/24 1353) Tone: RUE;Increase tone (wrist, elbow, shoulder) (11/24/24 1353) Current Functional Status: Activities of Daily Living: Self Care Feeding: Supervision (Please comment) (11/24/24 1353) Grooming: Supervision (Please comment) (wipe face) (11/29/24 121) Toileting: Minimal Assistance (hygiene in stance) (11/24/24 1353) Dressing Upper Body: Supervision (Please comment) (manage gown) (11/29/24 121) Lower Body: Supervision (Please comment) (manage socks) (11/29/241217) Functional Ambulation Assistive Device: No device (then utilized IV pole) (11/29/241217) Distance in feet:: 20 (then 25 with chair follow) (11/29/241217) Level of Assistance: Minimal Assistance (11/29/241217) Bed Mobility Supine-Sit: Minimal Assistance (11/29/241217) OT Transfers Sit-Stand: Minimal Assistance (11/29/241217) Stand-Sit: Minimal Assistance (11/29/241217) Balance Sit (Static): Fair (11/29/241217) Sit (Dynamic): Fair (-) (11/29/241217) Stand (Static): Fair (-) (11/29/241217) Stand (Dynamic): Poor (+) (11/29/241217) Patient Education Education Topic: Role of OT;Plan of care goals (11/29/241217) Review of Precautions: Safety;Fall (11/29/241217) Method of Education: Verbalized to patient (11/29/241217) Education Provided to: Patient (11/29/241217) Response to Education: Receptive and agreeable to education (11/29/241217) Barriers to learning: Medical status (11/29/241217) Preferred learning method: Combination (11/29/241217) Alarm Status Patient positioned in: Chair (11/29/241217) With: Pressure pad alarm intact and functioning and call sim in reach (11/29/241217) Following session patient seated OOB in chair with chair alarm activated and cord plugged into callbell system. Treatment Provided: Self Detention Management Trainin minutes Therapeutic Activity: 13 minutes Deficits requiring O.T. treatment needs: ADL/self-care;Balance;Endurance;Fine motor coordination;Functional mobility;Safety;Upper extremity strength;Upper extremity range of motion;Weakness () Assessment: Patient lying supine in bed upon entry. Patient completed bed mobility and sat on EOB. He then completed ADLs at above levels. Patient noted to be oriented x2 with difficulty determining accuracy of yes/nos to questions. Patient then stood and walked without device, walked out into hallwith chair follow for safety. Patient then began utilizing IV pole and required two seated rest breaks. Patient's HR increased to 106 bpm at highest, brought back to room and left in chair, made comfortable with all needs met. Please consider post- acute care services which may include home health, snf, outpatient therapy or inpatient rehabilitation. The level of care will be determined in collaboration with patient, family/caregiver and care team members. Plan: continue per plan of care Anticipated Frequency (on eval): 3 to 5 times per week (11/29/24 121) Equipment Equipment used in Therapy: Bedside commode (11/24/24 5332) AM-PAC Help From Another Person Eating Meals: A little (11/29/241217) Help From Another Person Taking Care of Personal Grooming: A little (11/29/241217) Help From Another Person To Put On/Take Off Upper Body Clothing: A little (11/29/241217) Help From Another Person To Put On/Take Off Lower Body Clothing: A little (11/29/241217) Help From Another Person Toileting: A lot (11/29/241217) Help From Another Person Bathing: A lot (11/29/241217) OT AM-PAC Score: 16 (11/29/241217) OT AM-PAC t-Scale Score: 35.96 (11/29/241217) HLM (Highest Level of Mobility) Goal: Level 5 standing (1 or more minutes) (11/29/24 1157) A portion of this AM-PAC assessment not scored based on functional assessment; rather clinical decision making utilized based on current findings and/or prior level of function. Please refer to future AM-PAC calculations of functional ability as they become available. * Ancillary Progress Note - Mee Santillan PTA - 11/29/2024 11:57 AM EDT PROGRESS NOTE - Physical Therapy [facility] [id number] Name: Tariq Sawant [place] [facility] [place] Date: 11/29/2024 Time: 1:43 PM Tariq J Haven is a/an 54 year old male. Patient Status: Inpatient Insurance: Payor: [employer] MEDICARE ADVANTAGE Plan: [employer] CHOICE PPO Product Type: *No Product type* Payor: [employer] Private PA Plan: [employer] Private [facility] Product Type: HMO Patient Seen: at bedside, nursing cleared patient for therapy Patient Identified By: Name, ID Band and Date Diagnosis: aphasia, ischemic stroke (11/29/241156) Status of treatment: Treatment completed (11/29/241156) Orders: PT evaluation and treatment (11/29/241156) Weight Bearing Status: Weight bearing as tolerated (11/29/241156) Precautions: Alarms;Falls;Safety (11/29/241156) Total Treatment Time--free text: 23 (11/29/241156) Subjective: Patient was agreeable to work with physical therapy services. Pain: No complaints of pain P.T. Bed Mobility Supine-Sit: Minimal Assistance (11/29/241156) Transfers Sit-Stand: Minimal Assistance (11/29/241156) Stand-Sit: Minimal Assistance (11/29/241156) Ambulation: Distance ambulated (feet): 25 + 20 Assistive Device: No device Assist: Minimal Assistance with a chair follow Balance Sit (Static): Fair (11/29/241156) Sit (Dynamic): (fair -) (11/29/241156) Stand (Static): (fair -) (11/29/241156) Stand (Dynamic): (poor +) (11/29/241156) Patient and or Family Goal(s): to get well Topic of Education: Safety with mobility Method of Education: Verbal discussion and explanation provided to patient: verbalized understanding and or agreement of this information and demonstrated the exercise and or task Treatment Provided: Gait Training 13 minutes: gait training with no device Neuromuscular Re-education 10 minutes: balance and postural retraining Alarm Status Patient positioned in: Chair (11/29/241156) With: Pressure pad alarm intact and functioning and call sim in reach (11/29/241156) Following session patient seated OOB in chair with chair alarm activated and cord plugged into callbell system. Patient Education Review of Precautions: Safety;Fall (11/29/241156) Review of Exercises: Pt Demonstrated Exercise;Verbal Exercises Provided (11/24/24 0720) Safety Awareness: Patient can communicate basic needs;Needs cueing supervision (via yes/no and increased visual cues) (11/29/241156) Preferred learning method: Combination (11/29/241156) Barriers to learning: Medical Status;Speaking (11/29/241156) Method of Education: Verbalized to patient;Patient demonstrated task (11/29/241156) Assessment: Patient was seen supine in bed upon arrival and agreeable to work with physical therapyservices. Patient continues to demonstrate difficulty with word finding and answer questions with yes/no however unsure of accuracy at times requiring increased visual cues fr communication. Patient performed bed mobility with minimal assistance the sat on the edge of the bed performing reaching/self righting tasks for approximately 10 minutes to increase trunk strength, postural awareness, and endurance requiring a range of supervision to contact guard assistance to avoid excessive anterior leaning. Patient completed sit to stand form the bed and ambulated 25 feet all with minimal assistanceand a chair follow for safety. Patient took a brief seated rest break demonstrating increased shortness of breath and HR being recorded at 101 bpm. Patient then performed sit to stand form the chair with minimal assistance and ambulated an additional 20 feet with minimal assistance and a chair follow. Shortness of breath began to worsen and HR was recorded at 106 bpm. Further mobility differed atthis time due to shortness of breath. Patient continues to progress when working with physical therapy services by increasing ambulatory distances and activity tolerance. Ended session with patient reclined in the chair with pillows for comfort, pressure epad alarm activated, and call sim within reach. Patient would continue to benefit from skilled physical therapy services to reach established goals and address deficits stated above. Please consider post- acute care services which may include home health, snf, outpatient therapy or inpatient rehabilitation. The level of care willbe determined in collaboration with patient, family/caregiver and care team members. Deficits requiring P.T. treatment needs: Safety;Mobility;Balance;Weakness;Endurance;Lower extremitystrength (11/29/241156) Plan: Continue with current treatment plan established on evaluation. AM PAC Score with Stairs: 16 A portion of this AM-PAC assessment not scored based on functional assessment; rather clinical decision making utilized based on current findings and/or prior level of function. Please refer to future AM-PAC calculations of functional ability as they become available. * Care Plan - Elen Buckley RN - 11/29/2024 5:22 AM EDT Clinical Goal(s): patient will remain safety (11/28/24 1900) Possible barriers to meeting goal(s)/advancing plan of care: Stability of the patient: Moderately unstable - medium risk of patient condition declining or worsening Summary regarding today's goal(s): Met: Recommendations: goal met * Ancillary Progress Note - Nish Hess RVT - 11/28/2024 2:52 PM EDT PROCEDURE - Vascular Lab [facility] [address] Name: Tariq Sawant [place] [facility] A[facility] Date: 11/28/2024 Time: 2:52 PM FINAL PHYSICIAN REPORT TO FOLLOW. PROCEDURE: Right side: Lower Extremity Duplex For Detection of Pseudoaneurysm - Please See Final Report TECH NAME: Nish Hess RVT * Care Plan - Zarina Shah RN - 11/28/2024 2:06 PM EDT Clinical Goal(s): Pt will be free from falls this shift (11/28/24 0734) Possible barriers to meeting goal(s)/advancing plan of care: stroke Stability of the patient: Moderately stable - low risk of patient condition declining or worsening Summary regarding today's goal(s): Met: pt did not fall Recommendations: continue purposeful hourly rounding * Communication - Walter Trivedi MD - 11/28/2024 11:45 AM EDT Brief vascular note: Repeat duplex remains negative for pseudoaneurysm or fistula No vascular surgery interventions planned Please call with questions or concerns Walter Trivedi MD Section of Vascular [place] [address] [phone] * Ancillary Progress Note - Chani Buckley COTA/L - 11/28/2024 10:57 AM EDT Attempted to see patient for therapy, patient currently off the floor at vascular lab, unavailable for therapy session. Will continue to attempt as able and appropriate. * Ancillary Progress Note - Mee Santillan PTA - 11/28/2024 10:56 AM EDT PROGRESS NOTE - Physical Therapy [address] [address] Name: Tariqxiao Sawant [place] [facility] Date: 11/28/2024 Time: 10:56 AM Attempted to see patient for physical therapy services however patient is currently off the floor at vascular lab making him unavailable for services at this time. Will continue to follow patient as able. * Ancillary Progress Note - Christiane Hope RN - 11/28/2024 9:32 AM EDT CARE MANAGEMENT - ADULT TRANSITION NOTE [address] [address] Name: Tariq Sawant Location: [address] Date: 11/28/2024 Time: 9:32 AM Risk Stratification Risk Stratification Psycho Social / Medical Concerns Identified: Adjustment to illness/injury (11/25/24 1208) OBRA or OPTIONS needed for placement: No (11/25/24 1208) Readmission Risk Score: 10.72 (11/28/24 0800) AM-PAC Score With Stairs : 19 (11/27/241999) Caregiver Information Emergency Contacts Name Relation Home Work Mobile Danna Wang Other - (no specific identity) [phone] Other Contacts Name Relation Home Work Mobile KASIA LIVINGSTON Other - (no specific identity) [phone] Linda Mojica Other - (no specific identity) [phone] Transition of Care Checklist Narrative: CM has been following Tariq's hospital course. Discussed in IDT rounds. Tariq is notcurrently medically stable for discharge. Cardiology to consult this AM, pending interventions, Tariq will be ready for IRF vs transfer to [facility] and intervention with cardiology. CM will continue to follow for additional discharge needs/plans. Anticipated Transportation at Discharge: tbd Patient/Family Expectations: IRF Transition Planning Additional Considerations: Care Management will continue to monitor and assist with discharge planning needs * Care Plan - Clovis Ritchie, ARLENE - 11/28/2024 3:45 AM EDT Clinical Goal(s): Pt will remain free from falls during this shift (11/27/24 1900) Possible barriers to meeting goal(s)/advancing plan of care: weakness Stability of the patient: Moderately stable - low risk of patient condition declining or worsening Summary regarding today's goal(s): Met: Pt remained free from falls during this shift Recommendations: Continue fall precautions and purposeful hourly rounding * Care Plan - Nahed Carbajal RN - 11/27/2024 11:35 AM EDT Clinical Goal(s): to remain free from falls/injury (11/27/24 0945) Possible barriers to meeting goal(s)/advancing plan of care: R sided weakness Stability of the patient: Moderately stable - low risk of patient condition declining or worsening Summary regarding today's goal(s): Met: Recommendations: hourly round with patient, utilize bed alarm and keep call light in reach. * Care Plan - Jessica Mancuso RN - 11/27/2024 6:30 AM EDT Clinical Goal(s): pt will be free from injuries/falls for shift (11/26/24 2300) Possible barriers to meeting goal(s)/advancing plan of care: decreased mobility Stability of the patient: Moderately stable - low risk of patient condition declining or worsening Summary regarding today's goal(s): Met: pt remained free from injuries/falls for shift Recommendations: hourly rounds, implement safety measures. * Care Plan - Jaida Stevens RN - 11/26/2024 6:27 AM EDT Clinical Goal(s): SBP <160 (11/25/241999) Possible barriers to meeting goal(s)/advancing plan of care: hx of HTN Stability of the patient: Moderately stable - low risk of patient condition declining or worsening Summary regarding today's goal(s): Met: pt was able to maintain SBP <160 Recommendations: continue to monitor SBP as ordered and administer antihypertensives as ordered PRN. Contact CCM if additional intervention is needed to maintain SBP goal. * Communication - Esther Espinal MD - 11/25/2024 3:35 PM EDT I called the patient's daughter (Kasia Livingston) multiple times without any answers. I left a voicemail. Will try again later * Communication - Esther Espinal MD - 11/25/2024 3:34 PM EDT Patient is having urinary retention and has a lot of pain. Will do straight cath and start patient on flomax 0.4mg daily He does have a Hx of BPH based on chart review. * Diagnostic Clarification - Esther Espinal MD - 11/25/2024 12:41 PM EDT The patient has been diagnosed with acute blood loss anemia. * Communication - Artie Arredondo MD - 11/25/2024 12:40 PM EDT NEUROSURGERY BRIEF NOTE Will order 1 month follow up in stroke neurosurgery clinic Neurosurgery will sign off, please reach out with further questions Discussed with Dr. Wan Arredondo MD Neurosurgery, PGY3 Cosigned by Peter Blas MD at 11/28/2024 9:59 AM EDT * Ancillary Progress Note - Patience Sky MSW - 11/25/2024 12:08 PM EDT CARE MANAGEMENT - ADULT INITIAL SCREENING [address] [address] Name: Tariq Sawant [place] [facility] Date: 11/25/2024 Time: 12:09 PM Discussed patient with the interdisciplinary care team. This Creative Services Specialist performed a chart review and met with pt at bedside and neighbor, Danna, via phone to complete admission screen and assessedneeds for transition planning. The clinical care coordinator role and services were explained and emotional support was provided. Chief Complaint: No chief complaint on file. Prior Living Arrangements What was your living situation prior to admission/observation?: Independently;Alone (11/25/24 1208) Living Quarters: House (11/25/24 1208) Number of steps to enter living quarters:: 0 (11/25/24 120) History of falling: Yes (11/25/24 0800) Prior Level of Functioning Describe the patient's ability prior to admission/observation to perform ADLs: Performs independently (11/25/24 1208) Describe the patient's mobility status prior to admission: Patient ambulates independently (11/25/24 1208) Patient uses assistive device: No (11/25/24 120) Caregiver Information Emergency Contacts None on File Other Contacts Name Relation Home Work Mobile KASIA LIVINGSTON Other - (no specific identity) [phone] Danna Wang Other - (no specific identity) [phone] Linda Mojica Other - (no specific identity) [phone] Risk Stratification/Psychosocial/Care Gaps Risk Stratification Psycho Social / Medical Concerns Identified: Adjustment to illness/injury (11/25/24 120) OBRA or OPTIONS needed for placement: No (11/25/24 120) Readmission Risk Score: 11.33 (11/25/24 1201) AM-PAC Score With Stairs : 15 (11/25/24 1000) Prior to Admission Services Services Prior to Admission 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 of Aging (PDA) Waiver Program: N/A (11/25/24 120) SPRING MACHINE OPERATOR Transportation (Services received within the last 30 days): Family/Friends Personal Vehicle (11/25/24 1208) Outpatient Creative Services Specialist: No care steamblaster to display Patient/Family Expectations: Per chart review, pt disoriented. SW contacted emergency contact, Kasia. Kasia reports that she is pt's half-sister but that they have not had contact in very long timeand that she has no information or other contacts to give this SW. SW met with pt at bedside in attempt to locate other contacts; pt reports he has two friends that this SW should reach out to- Danna Wang and Lakia. Pt reports they both live in [place]-close to his home. SW called pt's PCP office and spoke to Betty who reports they have two contacts on file- Danna Kathleen ([phone]) andRenee ([phone]). JORGE called Danna- number no longer in service. JORGE completed search and located two additional numbers for Danna ([phone] and [phone]). JORGE called the number above and spoke to Danna who confirms she does know pt and she is his neighbor. Danna expresses that pt lives in a one-story home with no SABINO and is typically independent with ADLs and ambulation; rides his ATVdown to her house frequently. Danna shares that she takes pt every week to get food from food bankand will help him with other things as needed- Danna agreeable to this SW adding her as a contact.JORGE called Renee who reports that she is another neighbor of pt and takes him to get groceries every week (Linda Mojica) and she is also agreeable to being added as contact per pt's request. JORGE reached out to Dr. Espinal and he will attempt to contact Kasia to confirm she does not want to be decision-maker and confirm that Danna does. JORGE did also touch base with pt about rehab at d/c. Pt requests SW speak to Danna about the same. JORGE spoke with Danna who reports interest in [facility]. SW to make referral once decision-maker/capacity confirmed. For further screening information, please refer to the Care Management flow document. * Respiratory Progress Note - Candice Salazar, PRESSROOM WORKER - 11/24/2024 2:31 PM EDT PATIENT DRIVEN PROTOCOL - Respiratory Care Services [facility] [address] Name: Tariq Sawant [place] [facility] Date: 11/24/2024 Time: 2:31 PM Patient Driven Protocol Summary: Initial evaluation performed. This Treatment Plan and medications will be reviewed by the Primary Care Team for any contraindications. Respiratory Care Treatment Plan Pulmonary Volume Expansion Therapy: Incentive Spirometry PRN to prevent or treat alveolar consolidation and atelectasis. . Secretion Management Treatment: Flutter TherapyPRN to enhance mobilization of secretions. . The patient will be re-evaluated: No re-evaluation needed. Indications for treatment met. The Triage Level is: (Assessment Score = 0 - 5) Level 5. Triage Level Definitions: Level 1 Severe Respiratory/Airway Compromise Level 2 Moderate Respiratory/Airway Compromise or high risk for pulmonary complications Level 3 Mild Respiratory/Airway Compromise or moderate risk for pulmonary complications Level 4 Episodic Respiratory/Airway Compromise or low risk for pulmonary complications Level 5 No Respiratory/Airway Compromise Triage 1 Triage 2 Triage 3 Triage 4 Triage 5 greater than 20 16 - 20 11 - 15 6 - 10 0 - 5 Medical Record Assessment Clinical Findings Pulmonary Status: 0 - No History Surgical Status: 1 - General Surgery Chest X-Ray: 0 - Not Performed or performed greater than 3 days ago Assessment Score: 1 Patient Assessment Clinical Findings Respiratory Pattern: 0 - RR 12 - 20; Patient only gets breathless with strenuous exercise. Breath Sounds: 0 - Clear to auscultation Cough Effectiveness: 0 - Strong non-productive Sputum Production: 0 - No sputum production Level of Activity: 1 - Ambulatory with assist O2 needed to keep SpO2 greater than or equal to 92%: 0 - Room Air Assessment Score: 1 Total Assessment Score: 2 Breath Sounds: Inspiratory and expiratory clear bilaterally.. Cough and Sputum: No cough was present.. CXR: Not performed. Vital Signs: Resp: 32 (11/24/24 1400) Pulse: 110 (11/24/24 1400) Temp: 38 °C (100.4 °F) (11/24/24 1200) SpO2: 91 % (11/24/24 1400) PFT: Minimal Predicted IC: 1.0 L. Inspiratory capacity: 2.5L. Primary Service: Critical Care Blue. Admitting Diagnosis: Aphasia [R47.01] Ischemic stroke (HCC) [I63.9] Pulmonary Diagnosis: none . Prescriptions/Home Medications/Durable Medical Equipment: none. * Ancillary Progress Note - Candice Salazar RRT - 11/24/2024 1:13 PM EDT [facility] A443/A Date of Admission: 11/23/2024 Ventilator Day: Liberation Trial Performed: yes, passed See RCS Adult Ventilator Flowsheet for more information Events of Note: Patient placed in SBT at 0614 this morning, patient had cuff leak and passed SBT trial. Extubations orders put in per Dr and patient was suctioned inline and orally and extubated to 6L NC. No stridor noted. * Ancillary Progress Note - Patience Sky MSW - 11/24/2024 12:20 PM EDT CARE MANAGEMENT - ADULT TRANSITION NOTE [address] [address] Name: Tariq Sawant [place] [facility] Date: 11/24/2024 Time: 12:20 PM Risk Stratification Readmission Risk Score: 10.3 (11/24/24 1201) Caregiver Information Emergency Contacts None on File Other Contacts Name Relation Home Work Mobile MIKIKASIA Other - (no specific identity) [phone] Transition of Care Checklist Narrative: SW participated in IDTs. Per service, pt extubated this AM. SW to follow up when able/appropriate to complete 515 w/ patient. Anticipated Transportation at Discharge: tbd Patient/Family Expectations: tbd Transition Planning Additional Considerations: -- Care Management will continue to monitor and assist with discharge planning needs * Care Plan - Simón Carter RN - 11/24/2024 10:07 AM EDT Clinical Goal(s): Patient will maintain SBP <160 (11/24/24 0800) Possible barriers to meeting goal(s)/advancing plan of care: Decreasing sedation to extubate. Stability of the patient: Moderately unstable - medium risk of patient condition declining or worsening Summary regarding today's goal(s): Met: Patient maintained SBP <160 for duration of shift. Recommendations: Continue current regimen. * Pt Handout (on AVS) - KELLEN PATIENT HANDOUT - 11/24/2024 9:25 AM EDT Images from the original note were not included. [address]27 What Is Ischemic Stroke? The brain needs a constant supply of blood to work. During a stroke, blood stops flowing to part ofthe brain. The affected area is damaged. Its functions are harmed or even lost. Most strokes are caused by a blockage in a blood vessel that supplies the brain. This is an ischemic stroke. They can also occur if a blood vessel in the brain ruptures (hemorrhagic stroke). The carotids are large arteries that carry blood from the heart to the brain. From the heart to the brain The heart is a pump. It sends oxygen-rich blood out through blood vessels called arteries. If an artery between the heart and the brain is blocked, the brain can?t get enough oxygen. Some artery blockages are caused by fatty deposits (plaque). Arteries can also be blocked by blood clots. Some clotsform on the plaque. Others can form in the heart?especially in people with atrial fibrillation, an irregular heart rhythm. If a piece of plaque or clot breaks off and enters the bloodstream, it can block flow to the brain and cause a stroke. How a stroke occurs Ischemic stroke occurs when an artery that supplies the brain is greatly narrowed or blocked. This can be caused by a buildup of plaque. It can also occur when small pieces of plaque or blood clot (emboli) break off from the blood vessel or heart into the bloodstream. The emboli flow in the blood until they get stuck in a small blood vessel that limits blood flow to the brain. Healthy arteries. In a healthy artery, the lining of the artery wall is smooth. This lets blood flow freely from the heart to the rest of the body. The brain gets all the blood it needs to function well. Damaged arteries. High blood pressure, cigarette smoking, high cholesterol, or other problems can roughen artery park. This allows plaque to build up in the park. Blood clots may also form on the plaque. This can narrow the artery and limit blood flow. Healthy arteries Damaged arteries Know the symptoms of a stroke · Weakness. You may feel a sudden weakness, tingling, or a loss of feeling on one side of your face or body including your arm or leg. · Vision problems. You may have sudden double vision or trouble seeing in one or both eyes. · Speech problems. You may have sudden trouble talking, slurred speech, or problems understanding others. · Movement problems. You may have sudden trouble walking, dizziness, a feeling of spinning, a lossof balance, a feeling of falling, or blackouts. Remember: If you have any of these symptoms, call 911 and your doctor as soon as possible. B.E. F.A.S.T. is an easy way to remember the signs of a stroke. When you see the signs, you will know what you need to call 911 fast. B.E. F.A.S.T. stands for: · B is for balance. Sudden loss of balance or coordination. · E is for eyes. Vision changes in one or both eyes. · F is for face drooping. One side of the face is drooping or numb. When the person smiles, the smile is uneven. · A is for arm weakness. One arm is weak or numb. When the person lifts both arms and the same time, one arm may drift downward. · S is for speech difficulty. You may notice slurred speech or trouble speaking. The person can't repeat a simple sentence correctly when asked. · T is for time to call 911. If someone shows any of these symptoms, even if they go away, call 911 right away. Make note of the time the symptoms first appeared. Last Reviewed Date: 2023 00:00:00 © [employer]. All rights reserved. This information is not intended as a substitute for professional medical care. Always follow your healthcare professional's instructions. * Pt Handout (on AVS) - KELLEN PATIENT HANDOUT - 11/24/2024 9:24 AM EDT Images from the original note were not included. [id number] Symptoms of a Stroke During a stroke, blood stops flowing to part of the brain or there is bleeding in the brain. This can damage areas in the brain that control the rest of the body. A stroke can happen to anyone at anyage. Call 911 and get help right away if any of these symptoms come on suddenly, even if the symptoms don?t last. Know the symptoms of a stroke A sudden feeling of weakness on one side of your body may be a sign that you are having a stroke. · Weakness. You may feel a sudden weakness, tingling, or a loss of feeling on one side of your face or body including your arm or leg. · Vision problems. You may have sudden double vision or trouble seeing in one or both eyes. · Speech problems. You may have sudden trouble talking, slurred speech, or problems understanding others. · Headache. You may have a sudden, severe headache. · Movement problems. You may have sudden trouble walking, dizziness, a feeling of spinning, a lossof balance, a feeling of falling, or blackouts. · Seizure. You may also have a seizure as the first symptom of a stroke. When to call 911 Remember: If you have any of these symptoms, or if someone you are with has these symptoms, call 911 as soon as possible. Never drive yourself or the person with symptoms to the hospital. The ambulance can alert the hospital and start treatment right away. B.E. F.A.S.T. is an easy way to remember the signs of a stroke. When you see these signs, you will know that you need to call 911 fast. B.E. F.A.S.T. stands for: · B is for balance. Sudden loss of balance or coordination. · E is for eyes. Vision changes in one or both eyes. · F is for face drooping. One side of the face is drooping or numb. When the person smiles, the smile is uneven. · A is for arm weakness. One arm is weak or numb. When the person lifts both arms at the same time, one arm may drift downward. · S is for speech difficulty. You may notice slurred speech or difficulty speaking. The person can't repeat a simple sentence correctly when asked. · T is for time to dial 911. If someone shows any of these symptoms, even if they go away, call 911 right away. Make note of the time the symptoms first appeared. Last Reviewed Date: 2024 00:00:00 © [employer]. All rights reserved. This information is not intended as a substitute for professional medical care. Always follow your healthcare professional's instructions. * Pt Handout (on AVS) - KELLEN, PATIENT HANDOUT - 11/24/2024 9:24 AM EDT 52002 Risk Factors for Stroke Certain health and lifestyle issues?called risk factors?increase your chances of having a stroke. The biggest risk factor for stroke is high blood pressure. But there are many other factors that alsoput you at risk. The list below can help you identify which risk factors you have. That way, you know where you need to make healthy changes. Talk with your healthcare provider about ways to help redu ce your risk factors. What are your risk factors? Risk factors are different for each person. Check off the factors that apply to you. Keep in mind that some factors, such as your age, can?t be changed. But others can be managed. Health risk factors You have high blood pressure. You?re overweight. You have unhealthy cholesterol levels. You have atrial fibrillation. You have atrial flutter. You?ve had a heart attack. You have narrowed arteries. You have diabetes. You are a man. You are an . You are an . You are an . Lifestyle risk factors You rarely exercise. You often eat salty, fried, or greasy foods. You smoke. You have more than 2 alcoholic drinks per day. Age and family history You?re over age 60. A parent, brother, or sister has had a stroke. Metabolic syndrome Any of the factors above may put you at increased risk for stroke. But having 3 or more of 5 certain risk factors raises your risk more. This is a condition called metabolic syndrome. These factors include: · Too much weight around your waist (or apple shaped body) · High blood pressure · High blood sugar · Low levels of HDL (good) cholesterol levels · High levels of triglycerides If you're a woman, your risks may also include polycystic ovary syndrome. If you have any of these risk factors, be sure to talk with your provider about how to decrease your risk of stroke and improve your overall health. Last Reviewed Date: 2023 00:00:00 © [employer] Components. All rights reserved. This information is not intended as a substitute for professional medical care. Always follow your healthcare professional's instructions. * Pt Handout (on AVS) - KELLEN PATIENT HANDOUT - 11/24/2024 9:24 AM EDT [address] Discharge Instructions for Stroke You have a high risk for a stroke, or a TIA (transient ischemic attack). During a stroke, blood stops flowing to part of your brain. This can damage areas in the brain that control other parts of thebody. Symptoms from a stroke depend on which part of the brain has been affected. Stroke risk factors Once you?ve had a stroke, you?re at greater risk for another one. Listed below are some other factors that can raise your risk for a stroke: · High blood pressure · High cholesterol · Cigarette or cigar smoking · Diabetes · Carotid or other artery disease · Atrial fibrillation, atrial flutter, or other heart disease · Not being physically active · Obesity · Certain blood disorders, such as sickle cell anemia · Drinking too much alcohol · Abusing street drugs · Race · Gender · Family history of stroke · Diet high in salty, fried, or greasy foods Changes in daily living Doing some everyday tasks may be hard after you?ve had a stroke. But you can learn new ways to manage. In fact, doing daily activities may help you to regain muscle strength. This can help your affected arm or leg work more normally. Be patient. Give yourself time to adjust. And appreciate the progress you make. Daily activities You may be at risk of falling. Make changes to your home to help you walk more easily. A therapist will decide if you need an assistive device, such as a cane or walker, to walk safely. You may need to see an occupational therapist (OT). Or you may see a physical therapist (PT). Thesehealthcare providers can help you to learn new ways of doing things. For example, you may need to make changes in how you bathe or dress. You may also need a speech therapist. This is someone who helps you speak normally again and be able to swallow. Tips for showering or bathing · Test the water temperature with a hand or foot that was not affected by the stroke. · Use grab bars, a shower seat, a handheld showerhead, and a long-handled brush. · Use any other device as advised by your therapists. Tips for getting dressed · Dress while sitting, starting with the affected side or limb. · Wear shirts that pull easily over your head. Wear pants or skirts with elastic waistbands. · Use zippers with loops attached to the pull tabs. Lifestyle changes · Take your medicines exactly as directed. Don?t skip doses. · Begin an exercise program. Ask your provider how to get started. Ask how much activity you should try to get every day or week. You can benefit from simple activities such as walking or gardening. · Limit how much alcohol you drink. · Control your cholesterol level. Follow your provider?s advice about how to do this. · If you are a smoker, quit now. Join a stop-smoking program to improve your chances of success. Ask your provider about medicines or other methods to help you quit. · Learn stress management methods. These can help you deal with stress in your home and work life. Diet Your healthcare provider will guide you on changes you may need to make to your diet. They may advise that you see a registered dietitian for help with changes. The changes can improve your cholesterol, blood pressure, and blood sugar. Changes may include: · Reducing the amount of fat and cholesterol you eat · Reducing the amount of salt (sodium) in your diet, especially if you have high blood pressure · Eating more vegetables and fruits · Eating more lean proteins, such as fish, poultry, and beans and peas (legumes) · Eating less red meat and processed meats · Using low-fat dairy products · Limiting vegetable oils and nut oils · Limiting sweets and processed foods such as chips, cookies, and baked goods · Not eating trans fats. These are often found in processed foods. Don't eat any food that has hydrogenated oils listed in its ingredients. Follow-up care · Keep your medical appointments. Close follow-up is important to stroke rehabilitation and recovery. · Some medicines require blood tests to check for progress or problems. Keep follow-up appointments for any blood tests ordered by your providers. Call 911 Call 911 right away if you have any of the following symptoms of stroke: · Weakness, tingling, or loss of feeling on one side of your face or body · Sudden double vision or trouble seeing in one or both eyes · Sudden trouble talking or slurred speech · Trouble understanding others · Sudden, severe headache · Dizziness, loss of balance, or a sense of falling · Blackouts or seizures B.E. F.A.S.T. is an easy way to remember the signs of stroke. When you see these signs, you know that you need to call 911 fast. B.E. F.A.S.T. stands for: · B is for balance. Sudden loss of balance or coordination. · E is for eyes. Vision changes in one or both eyes. · F is for face drooping. One side of the face is drooping or numb. When the person smiles, the smile is uneven. · A is for arm weakness. One arm is weak or numb. When the person lifts both arms at the same time, one arm may drift downward. · S is for speech difficulty. You may notice slurred speech or trouble speaking. The person can't repeat a simple sentence correctly when asked. · T is for time to call 911. If someone shows any of these symptoms, even if they go away, call 911 right away. Make note of the time the symptoms first appeared. Last Reviewed Date: 2022 00:00:00 © [employer]. All rights reserved. This information is not intended as a substitute for professional medical care. Always follow your healthcare professional's instructions. * Ancillary Progress Note - Paco Steele RVT - 11/24/2024 8:28 AM EDT PROCEDURE - Vascular Lab [address] [address] Name: Tariq Sawant Location: [facility] Date: 11/24/2024 Time: 8:28 AM FINAL PHYSICIAN REPORT TO FOLLOW. 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 TECH NAME: PACO STEELE RVT * Ancillary Progress Note - Matilde Pelaez RDN - 11/24/2024 8:10 AM EDT CLINICAL NUTRITION ADULT RISK ASSESSMENT [address] [address] Name: Tariq Sawant Location: [facility] Date: 11/24/2024 Time: 1:58 PM How patient was identified (select 2): Wristband, Medical record number, and Name Tariq Sawant is a 54 year old male being assessed for clinical nutrition risk related to unableto answer Primary diagnosis: 54 year old male was admitted on 11/23/2024 and presents with a left M1 occlusion. s/p TICI 3 thrombectomy on 11/[address] Blas. C/b right intraperitoneal hematoma adjacent to bladder. Other pertinent information: The patient was on the ventilator at the time of the exam. He nodded his head to questions asked. With regards to his appetite, he reported having a reduced appetite for a few days prior to being hospitalized. The patient denies having any issues related to nausea, vomiting, constipation, or diarrhea. Will continue to monitor the patient's weight status, laboratory values, and oral intakes. Anthropometrics Measurements Admission weight (for dietitians): 125.3 kg Height: 175.3 cm (5' 9.02") (11/24/24 1402) Weight: 125.3 kg (276 lb 3.8 oz) (11/24/24 0600) Usual Body Weight or EDW for Dialysis Patients: 120-125 kg Diet: Regular Previously followed diet: Regular Food Allergies/Intolerances: None. Oral Nutrition Supplement (ONS): N/A Pertinent medications/vitamins/minerals/supplements: Isolyte infusion, Ofirmev, Colace, Novolog, Senokot, Magnesium Sulfate, Latest Reference Range & Units 11/24/24 01:51 11/24/24 05:05 Phosphorus 2.5 - 4.8 mg/dL 4.9 (H) 5.1 (H) (H): Data is abnormally high Hyperphosphatemia is noted- will monitor for trends. RISK FACTORS: Adult Energy Intake: Less than 75% of estimated energy requirement for greater than 7 days (moderate, acute illness). Interpretation of Weight Change: No recent/significant weight change Skin: Surgical incision: bilateral groin NUTRITION RISK CATEGORY: Nutrition Risk Category: Low/Moderate (0-1 factors) Clinical Nutrition Recommendations: Diet: Continue current nutrition plan NUTRITION INTERVENTION/PLAN: Continue current care plan Will follow and adjust nutritional plan as medical condition requires. Please contact for change(s)in patient condition requiring earlier intervention. Matilde Pelaez RDN, LDN Registered Dietitian Envelope Machine Adjuster [facility] [phone] Available via [employer] * Communication - Solis Rivera MD - 11/24/2024 7:33 AM EDT CTA reviewed. 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 No extravasation in pelvis seen. Will obtain US this AM to further guide planning whether it is observation, thrombin injection, or operative intervention. Discussed with Dr. Trivedi this AM. * Care Plan - Jaida Stevens RN - 11/24/2024 6:17 AM EDT Clinical Goal(s): SBP <160 (11/24/24 0130) Possible barriers to meeting goal(s)/advancing plan of care: hx of HTN Stability of the patient: Moderately unstable - medium risk of patient condition declining or worsening Summary regarding today's goal(s): Met: pt was able to maintain SBP <160 Recommendations: continue to monitor SBP and notify CCM if additional intervention if needed documented in this encounter Plan of Treatment Upcoming Encounters Date Type Department Care Team ([facility] st Contact Info) Description 12/08/2024 5:10 PM EDT Anticoagulation Pharmacy [address] [phone] Pharmacist2, [facility] [address] [address] 01/03/2025 1:30 PM EDT Office Visit Neurosurgery, [place] [address], [place] [phone] Peter Blas MD [address], [place] [phone] 01/03/2025 2:20 PM EDT Telemedicine Neurology [facility] [place] [address] [place] [address] Migel Young MD [address], [place] [phone] 05/09/2025 1:30 PM EDT Office Visit Cardiothoracic Surg [facility] [address], [place] [phone] Lance Pennington MD [address], [place] [phone] Scheduled Orders Name Type Priority Associated Diagnoses Order Schedule EXTUBATION Procedures Routine One Time for 1 Occurrences starting 11/24/2024 until 11/24/2024 URINALYSIS, REFLEX TO CULTURE (NOT FOR NEUTROPENIC PATIENTS) Lab Routine One Time f or 1 Occurrences starting 11/29/2024 until 11/29/2024 URINALYSIS, REFLEX TO CULTURE (CUP ONLY) Lab Routine Once for 1 Occurrences starting 11/29/2024 until 11/29/2024 URINALYSIS, REFLEX TO CULTURE Lab Routine Once for 1 Occurrences starting 11/29/2024 until 11/29/2024 CTA CHEST NON-CORONARY W CONTRAST Medical Imaging Routine S/P AVR (aortic valve replacement) Aneurysm of ascending aorta without rupture (HCC) Expected: 06/03/2025, Expires: 01/01/2026 Scheduled Referrals Name Type Priority Associated Diagnoses Orde r Schedule ANTI-COAGULATION REFERRAL OP Referral Within 3 days (urgent) Acute ischemic left MCA stroke (HCC) Ordered: 12/02/2024 Health Maintenance Due Date Last Done Comments Depression Screening 1982 HIV Screening 1985 Albumin/Creatinine Ratio 1988 Hepatitis C Screening 1988 DTap/Tdap Vaccines (1 - Tdap) 1989 Hepatitis B Vaccine (1 of 3 - 19+ 3-dose series) 1989 Colonoscopy 2015 Fecal Occult Blood Test 2015 Sigmoidoscopy 2015 Pneumococcal Vaccine: 50+ Years (2 of 2 - PCV) 2020 08/11/2018, 06/10/2018 Zoster Vaccines (1 of 2) 2020 COVID-19 Vaccine (1 - season) 2024 Influenza Vaccine (FLU shot) (Season Ended) 2025 07/26/2019, 07/26/2019, 06/10/2018 GFR 12/02/2025 12/02/2024, 04/0 10/2024, 11/30/2024, Additional history exists Cologuard 03/23/2027 03/23/2024, 03/17/2024 Colorectal Cancer Screening 03/23/2027 Diabetes Screening 12/03/2027 12/02/2024, 0 12/01/2024, 11/30/2024, Additional history exists HPV (Gardasil) Vaccine Aged [...] Not on filedocumented as of this encounter Procedures Procedure Name Priority Date/Time Associated Diagnosis Comments GLUCOSE METER, POINT OF CARE RAJAN 12/02/2024 4:24 PM EDT HEPARIN, UNFRACTIONATED Routine 12/02/2024 12:44 PM EDT GLUCOSE METER, POINT OF CARE RAJAN 12/02/2024 11:51 AM EDT GLUCOSE METER, POINT OF CARE RAJAN 12/02/2024 7:49 AM EDT HEPARIN, UNFRACTIONATED STAT 12/02/2024 7:23 AM EDT BASIC METABOLIC PANEL Routine 12/02/2024 5:29 AM EDT PT INR Routine 12/02/2024 5:29 AM EDT PHOSPHORUS STAT 12/02/2024 5:29 AM EDT CBC STAT 12/02/2024 5:29 AM EDT MAGNESIUM STAT 12/02/2024 5:29 AM EDT HEPARIN, UNFRACTIONATED STAT 12/02/2024 12:57 AM EDT GLUCOSE METER, POINT OF CARE RAJAN 12/01/2024 9:07 PM EDT HEPARIN, UNFRACTIONATED STAT 12/01/2024 5:52 PM EDT GLUCOSE METER, POINT OF CARE RAJAN 12/01/2024 4:58 PM EDT ECHO, TTE, LIMITED Routine 12/01/2024 1: 41 PM EDT Valvular heart disease GLUCOSE METER, POINT OF CARE RAJAN 12/01/2024 11:36 AM EDT HEPARIN, UNFRACTIONATED Routine 12/01/2024 11:[address] CARDIAC COMPLETE Routine 12/01/2024 1 1:02 AM EDT GLUCOSE METER, POINT OF CARE RAJAN 12/01/2024 7:36 AM EDT BASIC METABOLIC PANEL Routine 12/01/2024 4:57 AM EDT HEPARIN, UNFRACTIONATED STAT 12/01/2024 4:57 AM EDT PT INR Routine 12/01/2024 4:57 AM EDT PHOSPHORUS STAT 12/01/2024 4:57 AM EDT CBC STAT 12/01/2024 4:57 AM EDT MAGNESIUM STAT 12/01/2024 4:57 AM EDT GLUCOSE METER, POINT OF CARE RAJAN 11/30/2024 9:20 PM EDT HEPARIN, UNFRACTIONATED STAT 11/30/2024 9:03 PM EDT HEPARIN, UNFRACTIONATED STAT 11/30/2024 5:06 PM EDT GLUCOSE METER, POINT OF CARE RAJAN 11/30/2024 5:05 PM EDT TRANSESOPHAGEAL ECHO (COMPLETE) Routine 11/30/2024 3:35 PM EDT Valvular heart disease GLUCOSE METER, POINT OF CARE RAJAN 11/30/2024 2:37 PM EDT CV ECHO, LI INTRAOPERATIVE 11/30/2024 2:00 PM EDT Valvular heart disease GLUCOSE METER, POINT OF CARE RAJAN 11/30/2024 11:39 AM EDT HEPARIN, UNFRACTIONATED STAT 11/30/2024 10:59 AM EDT GLUCOSE METER, POINT OF CARE RAJAN 11/30/2024 7:41 AM EDT BASIC METABOLIC PANEL Routine 11/30/2024 5:12 AM EDT HEPARIN, UNFRACTIONATED STAT 11/30/2024 5:12 AM EDT PT INR Routine 11/30/2024 5:12 AM EDT PHOSPHORUS STAT 11/30/2024 5:12 AM EDT CBC STAT 11/30/2024 5:12 AM EDT MAGNESIUM STAT 11/30/2024 5:12 AM EDT GLUCOSE METER, POINT OF CARE RAJAN 11/29/2024 9:36 PM EDT HEPARIN, UNFRACTIONATED STAT 11/29/2024 6:46 PM EDT XR CHEST 1 VIEW Routine 11/29/2024 6:39 PM EDT Fever, unspecified GLUCOSE METER, POINT OF CARE RAJAN 11/29/2024 4:42 PM EDT HEPARIN, UNFRACTIONATED STAT 11/29/2024 12:27 PM EDT GLUCOSE METER, POINT OF CARE RAJAN 11/29/2024 11:38 AM EDT GLUCOSE METER, POINT OF CARE RAJAN 11/29/2024 7:32 AM EDT CBC STAT 11/29/2024 5:31 AM EDT BASIC METABOLIC PANEL Routine 11/29/2024 5:30 AM EDT HEPARIN, UNFRACTIONATED STAT 11/29/2024 5:30 AM EDT PT INR Routine 11/29/2024 5:30 AM EDT PHOSPHORUS STAT 11/29/2024 5:30 AM EDT MAGNESIUM STAT 11/29/2024 5:30 AM EDT GLUCOSE METER, POINT OF CARE RAJAN 11/28/2024 9:22 PM EDT HEPARIN, UNFRACTIONATED STAT 11/28/2024 9:08 PM EDT GLUCOSE METER, POINT OF CARE RAJAN 11/28/2024 4:56 PM EDT GLUCOSE METER, POINT OF CARE RAJAN 11/28/2024 3:07 PM EDT VASC CHEHALIS ART DUP LTD LE Routine 11/28/2024 2:52 PM EDT HEPARIN, UNFRACTIONATED STAT 11/28/2024 2:52 PM EDT TRANSESOPHAGEAL ECHO (COMPLETE) Routine 11/28/2024 2:38 PM EDT Valvular heart disease GLUCOSE METER, POINT OF CARE [facility] 11/28/2024 7:58 AM EDT HEPARIN, UNFRACTIONATED STAT 11/28/2024 7:43 AM EDT BASIC METABOLIC PANEL Routine 11/28/2024 5:51 AM EDT HEPARIN, UNFRACTIONATED STAT 11/28/2024 5:51 AM EDT PT INR Routine 11/28/2024 5:51 AM EDT PHOSPHORUS STAT 11/28/2024 5:51 AM EDT CBC STAT 11/28/2024 5:51 AM EDT MAGNESIUM STAT 11/28/2024 5:51 AM EDT GLUCOSE METER, POINT OF CARE RAJAN 11/27/2024 9:10 PM EDT GLUCOSE METER, POINT OF CARE RAJAN 11/27/2024 4:59 PM EDT HEPARIN, UNFRACTIONATED STAT 11/27/2024 4:51 PM EDT CULTURE, BLOOD Routine 11/27/2024 4:05 PM EDT CULTURE, BLOOD Routine 11/27/2024 4:04 PM EDT GLUCOSE METER, POINT OF CARE RAJAN 11/27/2024 11:55 AM EDT HEPARIN, UNFRACTIONATED Routine 11/27/2024 9:41 AM EDT GLUCOSE METER, POINT OF CARE RAJAN 11/27/2024 7:52 AM EDT BASIC METABOLIC PANEL Routine 11/27/2024 3:12 AM EDT HEPARIN, UNFRACTIONATED Routine 11/27/2024 3:12 AM EDT PT INR Routine 11/27/2024 3:12 AM EDT PHOSPHORUS STAT 11/27/2024 3:12 AM EDT CBC STAT 11/27/2024 3:12 AM EDT MAGNESIUM STAT 11/27/2024 3:12 AM EDT GLUCOSE METER, POINT OF CARE RAJAN 11/26/2024 8:55 PM EDT HEPARIN, UNFRACTIONATED STAT 11/26/2024 7:44 PM EDT GLUCOSE METER, POINT OF CARE RAJAN 11/26/2024 5:04 PM EDT GLUCOSE METER, POINT OF CARE RAJAN 11/26/2024 12:50 PM EDT HEPARIN, UNFRACTIONATED STAT 11/26/2024 12:21 PM EDT PT INR STAT 11/26/2024 12:21 PM EDT APTT STAT 11/26/2024 12:21 PM EDT CBC STAT 11/26/2024 12:21 PM EDT GLUCOSE METER, POINT OF CARE [facility] 11/26/2024 8:00 AM EDT CALCIUM, IONIZED, WHOLE BLOOD STAT 11/26/2024 7:53 AM EDT BASIC METABOLIC PANEL Routine 11/26/2024 5:55 AM EDT PHOSPHORUS STAT 11/26/2024 5:55 AM EDT CBC STAT 11/26/2024 5:55 AM EDT MAGNESIUM STAT 11/26/2024 5:55 AM EDT MRI BRAIN WITHOUT CONTRAST STAT 11/25/2024 11:57 PM EDT GLUCOSE METER, POINT OF CARE [facility] 11/25/2024 9:33 PM EDT TROPONIN T, HIGH SENSITIVITY STAT 11/25/2024 4:54 PM EDT HC ECG TRACING ONLY STAT 11/25/2024 4 :14 PM EDT Chest pain GLUCOSE METER, POINT OF CARE RAJAN 11/25/2024 3:43 PM EDT XR CHEST 1 VIEW STAT 11/25/2024 3:35 PM EDT Atelectasis Hypoxemia ECHO, COMPLETE (2D), TRANS-THORACIC Routine 11/25/2024 2:51 PM EDT Stroke (HCC) HEMOGLOBIN AND HEMATOCRIT PANEL Routine 11/25/2024 2:27 PM EDT GLUCOSE METER, POINT OF CARE RAJAN 11/25/2024 11:53 AM EDT GLUCOSE METER, POINT OF CARE RAJAN 11/25/2024 8:56 AM EDT GLUCOSE METER, POINT OF CARE RAJAN 11/25/2024 5:22 AM EDT BASIC METABOLIC PANEL Routine 11/25/2024 5:20 AM EDT PHOSPHORUS STAT 11/25/2024 5:20 AM EDT CBC STAT 11/25/2024 5:20 AM EDT MAGNESIUM STAT 11/25/2024 5:20 AM EDT GLUCOSE METER, POINT OF CARE RAJAN 11/24/2024 11:46 PM EDT LACTATE Routine 11/24/2024 6:07 PM EDT GLUCOSE METER, POINT OF CARE RAJAN 11/24/2024 4:47 PM EDT GLUCOSE METER, POINT OF CARE RAJAN 11/24/2024 12:08 PM EDT LACTATE Routine 11/24/2024 12:05 PM EDT CBC STAT 11/24/2024 12:05 PM EDT VASC CHEHALIS ART DUP LTD LE Routine 11/24/2024 8:28 AM EDT TSH WITH FREE T4 IF INDICATED Add-on 11/24/2024 5:05 AM EDT LIPID PANEL WITH DIRECT LDL IF TG IS HIGH Routine 11/24/2024 5:05 AM EDT HEMOGLOBIN A1C STAT 11/24/2024 5:05 AM EDT BASIC METABOLIC PANEL Routine 11/24/2024 5:05 AM EDT PHOSPHORUS STAT 11/24/2024 5:05 AM EDT LACTATE Routine 11/24/2024 5:05 AM EDT CBC STAT 11/24/2024 5:05 AM EDT MAGNESIUM STAT 11/24/2024 5:05 AM EDT LDL CHOLESTEROL (DIRECT MEASURE) Routine 11/24/2024 5:[address] HEAD/BRAIN WO CONTRAST STAT 11/24/2024 4:18 AM EDT IA ECG ROUTINE ECG W/LEAST 12 LDS I&R ONLY Routine 11/24/2024 3:11 AM EDT Stroke (HCC) XR ABDOMEN 1 VIEW STAT 11/24/2024 2:3 3 AM EDT Encounter for fitting and adjustment of other gastrointestinal appliance and device XR CHEST 1 VIEW STAT 11/24/2024 2:33 AM EDT Encounter for fitting and adjustment of non-vascular catheter Presence of other specified devices MRSA SCREEN, PCR Routine 11/24/2024 2:08 AM EDT TEG (THOMROBOELASTOGRAPH) PANEL STAT 11/24/2024 1:51 AM EDT TEG (THROMBOELASTOGRAPH), HEPARINASE STAT 11/24/2024 1:51 AM EDT BLOOD GAS, ARTERIAL Add-on 11/24/2024 1 :51 AM EDT TEG (THROMBOELASTOGRAPH) STAT 11/24/2024 1:51 AM EDT BASIC METABOLIC PANEL STAT 11/24/2024 1:51 AM EDT PT INR STAT 11/24/2024 1:51 AM EDT PHOSPHORUS STAT 11/24/2024 1:51 AM EDT LACTATE STAT 11/24/2024 1:51 AM EDT CALCIUM, IONIZED, WHOLE BLOOD STAT 11/24/2024 1:51 AM EDT CBC STAT 11/24/2024 1:51 AM EDT MAGNESIUM STAT 11/24/2024 1:51 AM EDT CTA ABD/PELVIS STAT 11/24/2024 1:22 AM EDT Encounter for adjustment and management of vascular access device Retroperitoneal hematoma Nontraumatic hematoma of soft tissue Abnormal findings on diagnostic imaging of other abdominal regions, including retroperitoneum NEURO IR IMAGING Routine 11/24/2024 1:15 AM EDT BLOOD GAS WITH CHEMISTRY, POINT OF CARE RAJAN 11/24/2024 12:37 AM EDT TRANSFUSE CRYOPRECIPITATE Routine 11/24/2024 12:36 AM EDT TRANSFUSE CRYOPRECIPITATE Routine 11/24/2024 12:32 AM EDT EEG CHCF MONITORING Routine 11/24/2024 TRANSFUSE PACKED RED BLOOD CELLS Routine 11/23/2024 11:48 PM EDT LACTATE,WHOLE BLOOD STAT 11/23/2024 1 1:45 PM EDT WHOLE BLOOD PROFILE, ARTERIAL Add-on 11/23/2024 11:45 PM EDT HC CRYOPRECIPITATE EACH UNIT STAT 11/23/2024 11:15 PM EDT PREPARE PLASMA STAT 11/23/2024 11:15 PM EDT HC CRYOPRECIPITATE EACH UNIT STAT 11/23/2024 11:10 PM EDT PREPARE PLASMA STAT 11/23/2024 11:10 PM EDT WHOLE BLOOD PROFILE, ARTERIAL STAT 11/23/2024 11:04 PM EDT HC COMPATIBILITY ELECTRONIC CROSSMATCH STAT 11/23/2024 11:00 PM EDT VERTEBRAL ARTERY CATHETER PLACEMENT 11/23/2024 9:05 PM EDT Stroke (cerebrum) (HCC) CAROTID (INTERNAL) ARTERY CATHETHER PLACEMENT 11/23/2024 9:05 PM EDT Stroke (cerebrum) (HCC) documented in this encounter Results * GLUCOSE METER, POINT OF CARE (12/02/2024 4:24 PM EDT) [facility] Glucose - POCT 119 70 - 120 mg/dL 12/02/2024 4:28 PM EDT [facility] Blood Whole blood specimen / Unknown 12/02/2024 4:24 PM EDT 12/02/2024 4:28 PM EDT us Rika Livingston MD LAB POINT OF CARE TEST DOCKED DEVICE UNSOLICITED RESULTS Final Result [facility] [address] [place] [address] * (ABNORMAL) HEPARIN, UNFRACTIONATED (12/02/2024 12:44 PM EDT) [facility] Heparin, Unfractionated 0.52(H) <0.10 IU/mL 12/02/2024 1:32 PM EDT [facility] Comment: Anti-Xa Therapeutic Ranges Neurology/Stroke: 0.15 to 0.35 IU/mL Cardiology/Acute Coronory Syndrome: 0.3 to 0.6 IU/mL Deep Vein Thrombosis/Pulmonary Embolus (DVT/PE): 0.3 to 0.7 IU/mL Note: Hemolysis, icterus, lipemia and very low antithrombin III activity (< 30%) may falsely decrease anti-Xa levels. If anti-Xa subtherapeutic after 3 consecutive titrations, recommend APTT and antithrombin III levels. If APTT >120 seconds rule out hemolysis or icterus. Consult laboratory medicine with any questions. Blood Venous blood specimen / Unknown Venipuncture / Unknown 12/02/2024 12:44 PM EDT 12/02/2024 1:15 PM EDT Rika Livingston MD LAB BLOOD ORDERABLES Final Result [facility] [address] [place] [address] * (ABNORMAL) GLUCOSE METER, POINT OF CARE (12/02/2024 11:51 AM EDT) Glucose - POCT 180(H) 70 - 120 mg/dL 12/02/2024 12:08 PM EDT [facility] Blood Whole blood specimen / Unknown 12/02/2024 11:51 AM EDT 12/02/2024 12:08 PM EDT Rika Livingston MD LAB POINT OF CARE TEST DOCKED DEVICE UNSOLICITED RESULTS Final Result [facility] [address] [place] [address] * (ABNORMAL) GLUCOSE METER, POINT OF CARE (12/02/2024 7:49 AM EDT) Glucose - POCT 124(H) 70 - 120 mg/dL 12/02/2024 7:54 AM EDT [facility] Blood Whole blood specimen / Unknown 12/02/2024 7:49 AM EDT 12/02/2024 7:54 AM EDT Rika Livingston MD LAB POINT OF CARE TEST DOCKED DEVICE UNSOLICITED RESULTS Final Result Performing Organization Address [facility] Co de Phone Number [facility] [address] [place] [address] * (ABNORMAL) HEPARIN, UNFRACTIONATED (12/02/2024 7:23 AM EDT) Heparin, Unfractionated 0.46(H) <0.10 IU/mL 12/02/2024 8:59 AM EDT [facility] Comment: Anti-Xa Therapeutic Ranges Neurology/Stroke: 0.15 to 0.35 IU/mL Cardiology/Acute Coronory Syndrome: 0.3 to 0.6 IU/mL Deep Vein Thrombosis/Pulmonary Embolus (DVT/PE): 0.3 to 0.7 IU/mL Note: Hemolysis, icterus, lipemia and very low antithrombin III activity (< 30%) may falsely decrease anti-Xa levels. If anti-Xa subtherapeutic after 3 consecutive titrations, recommend APTT and antithrombin III levels. If APTT >120 seconds rule out hemolysis or icterus. Consult laboratory medicine with any questions. Blood Venous blood specimen / Unknown Venipuncture / Unknown 12/02/2024 7:23 AM EDT 12/02/2024 8:47 AM EDT Rika Livingston MD LAB BLOOD ORDERABLES Final Result Performing Organization Address [facility] Hospital/ZIP Co de Phone Number LAB[facility]ATORY [facility] [address] [place] [address] * (ABNORMAL) PT INR (12/02/2024 5:29 AM EDT) Prothrombin Time 15.7(H) 11.6 - 15.2 seconds 12/02/2024 6:10 AM EDT LAB[facility]ATORY [facility] INR 1.2 0.8 - 1.2 12/02/2024 6:10 AM EDT [facility] Blood Venous blood specimen / Unknown Venipuncture / Unknown 12/02/2024 5:29 AM EDT 12/02/2024 5:36 AM EDT Narrative [facility] - 12/02/2024 6:10 AM EDT Warfarin Therapy INR: 2.0-3.0 conventional anticoagulation INR: 2.5-3.5 high intensity anticoagulation us Jose Vasquez MD LAB BLOOD ORDERABLES F inal Result [facility] [address] [place] [address] * (ABNORMAL) CBC (12/02/2024 5:29 AM EDT) WBC 8.09 4.00 - 10.80 K/uL 12/02/2024 5:55 AM EDT [facility] RBC 3.52 4.50 - 5.25 M/uL 12/02/2024 5:55 AM EDT [facility] HGB 10.4(L) 14.0 - 16.8 g/dL 12/02/2024 5:55 AM EDT [facility] HCT 32.3(L) 40.0 - 48.4 % 12/02/2024 5:55 AM EDT [facility] MCV 91.8 82.0 - 99.5 fL 12/02/2024 5:55 AM EDT [facility] MCH 29.5 27.0 - 34.0 pg 12/02/2024 5:55 AM EDT [facility] MCHC 32.2 32.0 - 36.0 g/dL 12/02/2024 5:55 AM EDT [facility] RDW 14.6 11.5 - 15.5 % 12/02/2024 5:55 AM EDT [facility] PLT 259 140 - 400 K/uL 12/02/2024 5:55 AM EDT [facility] MPV 11.2 6.6 - 11.1 fL 12/02/2024 5:55 AM EDT [facility] nRBCs 0 <=0 /100 WBCs 12/02/2024 5:55 AM EDT [facility] Blood Venous blood specimen / Unknown Venipuncture / Unknown 12/02/2024 5:29 AM EDT 12/02/2024 5:36 AM EDT Jose Vasquez MD LAB BLOOD ORDERABLES F inal Result Performing Organization Address City/[facility]/ZIP Co de Phone Number [facility]ATORY [facility] [address], [place] [id number] * (ABNORMAL) BASIC METABOLIC PANEL (12/02/2024 5:29 AM EDT) BUN 15 6 - 20 mg/dL 12/02/2024 6:16 AM EDT LABORATORY C CREATININE 1.2 0.6 - 1.2 mg/dL 12/02/2024 6:16 AM EDT LAB[facility]ATORY [facility] EGFR 73 >=60 mL/min 12/02/2024 6:16 AM EDT [facility] Comment:eGFR is calculated b ased on the CKD-EPI 2020 equation. SODIUM 137 135 - 146 mmol/L 12/02/2024 6:16 AM EDT LABORATORY C POTASSIUM 4.0 3.5 - 5.1 mmol/L 12/02/2024 6:16 AM EDT LABORATORY C CHLORIDE 104 98 - 107 mmol/L 12/02/2024 6:16 AM EDT LABORATORY C CO2 23 22 - 32 mmol/L 12/02/2024 6:16 AM EDT LABORATORY C ANION GAP 10 7 - 15 mmol/L 12/02/2024 6:16 AM EDT LABORATORY C GLUCOSE 136(H) 70 - 120 mg/dL 12/02/2024 6:16 AM EDT LABORATORY C CALCIUM 8.4 8.4 - 10.2 mg/dL 12/02/2024 6:16 AM EDT LAB[facility]ORY [facility] Blood Venous blood specimen / Unknown Venipuncture / Unknown 12/02/2024 5:29 AM EDT 12/02/2024 5:36 AM EDT Jose Vasquez MD LAB BLOOD ORDERABLES F inal Result [facility] [address] [place] [address] * MAGNESIUM (12/02/2024 5:29 AM EDT) Magnesium 1.8 1.5 - 2.6 mg/dL 12/02/2024 6:16 AM EDT LAB[facility]ATORY [facility] Blood Venous blood specimen / Unknown Venipuncture / Unknown 12/02/2024 5:29 AM EDT 12/02/2024 5:36 AM EDT Jose Vasquez MD LAB BLOOD ORDERABLES F inal Result Performing Organization Address [facility]/ZIP Co de Phone Number LABORATORY [place] [address] [place] [address] * PHOSPHORUS (12/02/2024 5:29 AM EDT) Pathologist [facility] Phosphorus 3.4 2.5 - 4.8 mg/dL 12/02/2024 6:16 AM EDT LAB[facility]ATORY [facility] Blood Venous blood specimen / Unknown Venipuncture / Unknown 12/02/2024 5:29 AM EDT 12/02/2024 5:36 AM EDT Jose Vasquez MD LAB BLOOD ORDERABLES F inal Result Performing Organization Address City/[facility]/ZIP Co de Phone Number LABORATORY [place] [address] [place] [address] * (ABNORMAL) HEPARIN, UNFRACTIONATED (12/02/2024 12:57 AM EDT) Pathologist [facility] Heparin, Unfractionated 0.63(H) <0.10 IU/mL 12/02/2024 1:21 AM EDT LAB[facility]ATORY [facility] Comment: Anti-Xa Therapeutic Ranges Neurology/Stroke: 0.15 to 0.35 IU/mL Cardiology/Acute Coronory Syndrome: 0.3 to 0.6 IU/mL Deep Vein Thrombosis/Pulmonary Embolus (DVT/PE): 0.3 to 0.7 IU/mL Note: Hemolysis, icterus, lipemia and very low antithrombin III activity (< 30%) may falsely decrease anti-Xa levels. If anti-Xa subtherapeutic after 3 consecutive titrations, recommend APTT and antithrombin III levels. If APTT >120 seconds rule out hemolysis or icterus. Consult laboratory medicine with any questions. Blood Venous blood specimen / Unknown Venipuncture / Unknown 12/02/2024 12:57 AM EDT 12/02/2024 1:06 AM EDT Rika Livingston MD LAB BLOOD ORDERABLES Final Result LAB[facility]ATORY [facility] [address] [place] [address] * (ABNORMAL) GLUCOSE METER, POINT OF CARE (12/01/2024 9:07 PM EDT) [facility] Glucose - POCT 138(H) 70 - 120 mg/dL 12/01/2024 9:12 PM EDT [facility] Blood Whole blood specimen / Unknown 12/01/2024 9:07 PM EDT 12/01/2024 9:12 PM EDT Rika Livingston MD LAB POINT OF CARE TEST DOCKED DEVICE UNSOLICITED RESULTS Final Result Performing Organization Address City/[facility] Co de Phone Number [facility] [address] [place] [address] * (ABNORMAL) HEPARIN, UNFRACTIONATED (12/01/2024 5:52 PM EDT) Pathologist [facility] Heparin, Unfractionated 0.46(H) <0.10 IU/mL 12/01/2024 6:26 PM EDT LAB[facility]ATORY [facility] Comment: Anti-Xa Therapeutic Ranges Neurology/Stroke: 0.15 to 0.35 IU/mL Cardiology/Acute Coronory Syndrome: 0.3 to 0.6 IU/mL Deep Vein Thrombosis/Pulmonary Embolus (DVT/PE): 0.3 to 0.7 IU/mL Note: Hemolysis, icterus, lipemia and very low antithrombin III activity (< 30%) may falsely decrease anti-Xa levels. If anti-Xa subtherapeutic after 3 consecutive titrations, recommend APTT and antithrombin III levels. If APTT >120 seconds rule out hemolysis or icterus. Consult laboratory medicine with any questions. Blood Venous blood specimen / Unknown Venipuncture / Unknown 12/01/2024 5:52 PM EDT 12/01/2024 6:08 PM EDT us Rika Livingston MD LAB BLOOD ORDERABLES Final Result [facility] [address] [place] [address] * (ABNORMAL) GLUCOSE METER, POINT OF CARE (12/01/2024 4:58 PM EDT) Pathologist [facility] Glucose - POCT 125(H) 70 - 120 mg/dL 12/01/2024 5:15 PM EDT [facility] Blood Whole blood specimen / Unknown 12/01/2024 4:58 PM EDT 12/01/2024 5:15 PM EDT us Rika Livingston MD LAB POINT OF CARE TEST DOCKED DEVICE UNSOLICITED RESULTS Final Result Performing Organization Address [facility] Co de Phone Number [facility] [address] [place] [address] * ECHO, TTE, LIMITED (12/01/2024 1:41 PM EDT) Pathologist [facility] LEFT VENTRICULAR EJECTION FRACTION 50 % [facility] 12/01/2024 1:09 PM EDT us Jordan Felix DO ECHOCARDIOLOGY Final R esult Performing Organization Address [facility] Co de Phone Number [facility] * (ABNORMAL) GLUCOSE METER, POINT OF CARE (12/01/2024 11:36 AM EDT) Glucose - POCT 144(H) 70 - 120 mg/dL 12/01/2024 11:43 AM EDT [facility] Blood Whole blood specimen / Unknown 12/01/2024 11:36 AM EDT 12/01/2024 11:43 AM EDT Rika Livingston MD LAB POINT OF CARE TEST DOCKED DEVICE UNSOLICITED RESULTS Final Result Performing Organization Address City/[facility]/ZIP Co de Phone Number [facility] [address] [place] [address] * (ABNORMAL) HEPARIN, UNFRACTIONATED (12/01/2024 11:23 AM EDT) Heparin, Unfractionated 0.73(H) <0.10 IU/mL 12/01/2024 12:05 PM EDT LAB[facility]ATORY [facility] Comment: Anti-Xa Therapeutic Ranges Neurology/Stroke: 0.15 to 0.35 IU/mL Cardiology/Acute Coronory Syndrome: 0.3 to 0.6 IU/mL Deep Vein Thrombosis/Pulmonary Embolus (DVT/PE): 0.3 to 0.7 IU/mL Note: Hemolysis, icterus, lipemia and very low antithrombin III activity (< 30%) may falsely decrease anti-Xa levels. If anti-Xa subtherapeutic after 3 consecutive titrations, recommend APTT and antithrombin III levels. If APTT >120 seconds rule out hemolysis or icterus. Consult laboratory medicine with any questions. Blood Venous blood specimen / Unknown Venipuncture / Unknown 12/01/2024 11:23 AM EDT 12/01/2024 11:40 AM EDT Riak Livingston MD LAB BLOOD ORDERABLES Final Result [facility]ATORY [facility] [address] [place] [address] * CT CARDIAC COMPLETE (12/01/2024 11:02 AM EDT) Anatomical Region Laterality Modality Cardio, Chest, Body Computed Jaycob ography Narrative 12/01/2024 5:25 PM EDT Focused exam to evaluate mechanical aortic valve. Mechanical aortic valve. There is normal leaflet motion.There is no evidence of prosthetic dehiscence. No sizable aortic valve thrombus seen. Given streak artifact related to the metallic prosthesis, microthrombi are difficult to entirely exclude. Aneurysmal caliber of the ascending aorta measuring up to 53 mm. Myocardial thinning and fatty metaplasia at the LV apex suggestive of old myocardial infarction, with comparison to prior full FOV CT. Referral Diagnosis S/P AVR (aortic valve replacement) Z95.4 Aortic valve stenosis I35.0 Procedure Details The Body Mass Index is '39.5' meter squared . Indication: surgical planning prior to cardiac surgery. '_' Cardiac CT protocol: "Retrospective" . Cardiac CT with Ca score performed: [id number] (0149T and 0151T). Heart Rate: "65-66" bpm. Dose Length Produce (DLP) "1744.9". Radiation dose: '24.42' mSv. Voltage setting: '120' KV. Milliamperage "470" MA. Field of view: 'cardiac structures only.' Scan Length 73 mm. IV contrast dose: '90' ml Visapaque. Contrast infusion rate "7.0"ml/sec. Metoprolol 100 mg PO was self administered the night before scanning. Metropolol 100 mg PO was self administered the morning of scanning. Nursing Care:: Ethel Hooper RN generator technician: Nakia Aguirre RT( R) Quantitative Analysis Mid ascending aorta: [id number] mm (transverse). us Jordan Felix DO RAD CT Final R esult * (ABNORMAL) GLUCOSE METER, POINT OF CARE (12/01/2024 7:36 AM EDT) Glucose - POCT 130(H) 70 - 120 mg/dL 12/01/2024 7:41 AM EDT [employer] Blood Whole blood specimen / Unknown 12/01/2024 7:36 AM EDT 12/01/2024 7:41 AM EDT Rika Livingston MD LAB POINT OF CARE TEST DOCKED DEVICE UNSOLICITED RESULTS Final Result [facility] [address] [place] [address] * PT INR (12/01/2024 4:57 AM EDT) Prothrombin Time 14.1 11.6 - 15.2 seconds 12/01/2024 5:16 AM EDT LAB[facility]ATORY [facility] INR 1.1 0.8 - 1.2 12/01/2024 5:16 AM EDT LAB[facility]ORY [facility] Blood Venous blood specimen / Unknown Venipuncture / Unknown 12/01/2024 4:57 AM EDT 12/01/2024 5:04 AM EDT Narrative [facility] - 12/01/2024 5:16 AM EDT Warfarin Therapy INR: 2.0-3.0 conventional anticoagulation INR: 2.5-3.5 high intensity anticoagulation us Jose Vasquez MD LAB BLOOD ORDERABLES F inal Result [facility] [address] [place] [address] * (ABNORMAL) BASIC METABOLIC PANEL (12/01/2024 4:57 AM EDT) Pathologist [facility] BUN 16 6 - 20 mg/dL 12/01/2024 5:34 AM EDT LAB[facility]ATORY [facility] CREATININE 1.2 0.6 - 1.2 mg/dL 12/01/2024 5:34 AM EDT LAB[facility]ATORY [facility] EGFR 73 >=60 mL/min 12/01/2024 5:34 AM EDT LAB[facility]ORY [facility] Comment:eGFR is calculated b ased on the CKD-EPI 2020 equation. SODIUM 137 135 - 146 mmol/L 12/01/2024 5:34 AM EDT [facility] POTASSIUM 3.7 3.5 - 5.1 mmol/L 12/01/2024 5:34 AM EDT [facility] CHLORIDE 102 98 - 107 mmol/L 12/01/2024 5:34 AM EDT [facility] CO2 23 22 - 32 mmol/L 12/01/2024 5:34 AM EDT [facility] ANION GAP 12 7 - 15 mmol/L 12/01/2024 5:34 AM EDT [facility] GLUCOSE 155(H) 70 - 120 mg/dL 12/01/2024 5:34 AM EDT LABORATORY C CALCIUM 8.6 8.4 - 10.2 mg/dL 12/01/2024 5:34 AM EDT [facility] Blood Venous blood specimen / Unknown Venipuncture / Unknown 12/01/2024 4:57 AM EDT 12/01/2024 5:04 AM EDT Jose Vasquez MD LAB BLOOD ORDERABLES F inal Result Performing Organization Address City/[facility]/ZIP Co de Phone Number [facility]ORY [facility] [address] [place] [address] * MAGNESIUM (12/01/2024 4:57 AM EDT) Magnesium 1.7 1.5 - 2.6 mg/dL 12/01/2024 5:34 AM EDT [facility] Blood Venous blood specimen / Unknown Venipuncture / Unknown 12/01/2024 4:57 AM EDT 12/01/2024 5:04 AM EDT Jose Vasquez MD LAB BLOOD ORDERABLES F inal Result Performing Organization Address [facility] Co de Phone Number LAB[facility]ATORY [facility] [address] [place] [address] * PHOSPHORUS (12/01/2024 4:57 AM EDT) Phosphorus 3.5 2.5 - 4.8 mg/dL 12/01/2024 5:34 AM EDT [facility] Blood Venous blood specimen / Unknown Venipuncture / Unknown 12/01/2024 4:57 AM EDT 12/01/2024 5:04 AM EDT Jose Vasquez MD LAB BLOOD ORDERABLES F inal Result Performing Organization Address City/[facility] Co de Phone Number [facility]ORY [facility] [address] [place] [address] * (ABNORMAL) HEPARIN, UNFRACTIONATED (12/01/2024 4:57 AM EDT) Heparin, Unfractionated 0.67(H) <0.10 IU/mL 12/01/2024 5:21 AM EDT LABORATORY [facility] Comment: Anti-Xa Therapeutic Ranges Neurology/Stroke: 0.15 to 0.35 IU/mL Cardiology/Acute Coronory Syndrome: 0.3 to 0.6 IU/mL Deep Vein Thrombosis/Pulmonary Embolus (DVT/PE): 0.3 to 0.7 IU/mL Note: Hemolysis, icterus, lipemia and very low antithrombin III activity (< 30%) may falsely decrease anti-Xa levels. If anti-Xa subtherapeutic after 3 consecutive titrations, recommend APTT and antithrombin III levels. If APTT >120 seconds rule out hemolysis or icterus. Consult laboratory medicine with any questions. Blood Venous blood specimen / Unknown Venipuncture / Unknown 12/01/2024 4:57 AM EDT 12/01/2024 5:04 AM EDT us Rika Livingston MD LAB BLOOD ORDERABLES Final Result [facility]ATORY [facility] [address] [place] [address] * (ABNORMAL) CBC (12/01/2024 4:57 AM EDT) WBC 9.78 4.00 - 10.80 K/uL 12/01/2024 5:17 AM EDT LAB[facility]ATORY [facility] RBC 3.54 4.50 - 5.25 M/uL 12/01/2024 5:17 AM EDT LAB[facility]ATORY [facility] HGB 10.4(L) 14.0 - 16.8 g/dL 12/01/2024 5:17 AM EDT LAB[facility]ATORY [facility] HCT 32.5(L) 40.0 - 48.4 % 12/01/2024 5:17 AM EDT LAB[facility]ATORY [facility] MCV 91.8 82.0 - 99.5 fL 12/01/2024 5:17 AM EDT LABORATORY [facility] MCH 29.4 27.0 - 34.0 pg 12/01/2024 5:17 AM EDT LABORATORY [facility] MCHC 32.0 32.0 - 36.0 g/dL 12/01/2024 5:17 AM EDT LABORATORY [facility] RDW 14.6 11.5 - 15.5 % 12/01/2024 5:17 AM EDT LABORATORY [facility] PLT 242 140 - 400 K/uL 12/01/2024 5:17 AM EDT LABORATORY [facility] MPV 10.9 6.6 - 11.1 fL 12/01/2024 5:17 AM EDT LAB[facility]ORY [facility] nRBCs 0 <=0 /100 WBCs 12/01/2024 5:17 AM EDT LAB[facility]ORY [facility] Blood Venous blood specimen / Unknown Venipuncture / Unknown 12/01/2024 4:57 AM EDT 12/01/2024 5:04 AM EDT Jose Vasquez MD LAB BLOOD ORDERABLES F inal Result LABORATORY [facility] [address] [place] [address] * (ABNORMAL) GLUCOSE METER, POINT OF CARE (11/30/2024 9:20 PM EDT) [facility] Glucose - POCT 194(H) 70 - 120 mg/dL 11/30/2024 9:49 PM EDT [facility] Blood Whole blood specimen / Unknown 11/30/2024 9:20 PM EDT 11/30/2024 9:49 PM EDT Rika Livingston MD LAB POINT OF CARE TEST DOCKED DEVICE UNSOLICITED RESULTS Final Result [facility] [address] [place] [address] * (ABNORMAL) HEPARIN, UNFRACTIONATED (11/30/2024 9:03 PM EDT) [facility] Heparin, Unfractionated 0.16(H) <0.10 IU/mL 11/30/2024 9:30 PM EDT LAB[facility] Comment: Anti-Xa Therapeutic Ranges Neurology/Stroke: 0.15 to 0.35 IU/mL Cardiology/Acute Coronory Syndrome: 0.3 to 0.6 IU/mL Deep Vein Thrombosis/Pulmonary Embolus (DVT/PE): 0.3 to 0.7 IU/mL Note: Hemolysis, icterus, lipemia and very low antithrombin III activity (< 30%) may falsely decrease anti-Xa levels. If anti-Xa subtherapeutic after 3 consecutive titrations, recommend APTT and antithrombin III levels. If APTT >120 seconds rule out hemolysis or icterus. Consult laboratory medicine with any questions. Blood Venous blood specimen / Unknown Venipuncture / Unknown 11/30/2024 9:03 PM EDT 11/30/2024 9:10 PM EDT us Rika Livingston MD LAB BLOOD ORDERABLES Final Result [facility]ORY [facility] [address] [place] [address] * (ABNORMAL) HEPARIN, UNFRACTIONATED (11/30/2024 5:06 PM EDT) [facility] Heparin, Unfractionated 0.16(H) <0.10 IU/mL 11/30/2024 5:41 PM EDT [facility] Comment: Anti-Xa Therapeutic Ranges Neurology/Stroke: 0.15 to 0.35 IU/mL Cardiology/Acute Coronory Syndrome: 0.3 to 0.6 IU/mL Deep Vein Thrombosis/Pulmonary Embolus (DVT/PE): 0.3 to 0.7 IU/mL Note: Hemolysis, icterus, lipemia and very low antithrombin III activity (< 30%) may falsely decrease anti-Xa levels. If anti-Xa subtherapeutic after 3 consecutive titrations, recommend APTT and antithrombin III levels. If APTT >120 seconds rule out hemolysis or icterus. Consult laboratory medicine with any questions. Blood Venous blood specimen / Unknown Venipuncture / Unknown 11/30/2024 5:06 PM EDT 11/30/2024 5:22 PM EDT us Rika Livingston MD LAB BLOOD ORDERABLES Final Result [facility] [address] [place] [address] * (ABNORMAL) GLUCOSE METER, POINT OF CARE (11/30/2024 5:05 PM EDT) Glucose - POCT 154(H) 70 - 120 mg/dL 11/30/2024 5:12 PM EDT [employer] Blood Whole blood specimen / Unknown 11/30/2024 5:05 PM EDT 11/30/2024 5:12 PM EDT us Rika Livingston MD LAB POINT OF CARE TEST DOCKED DEVICE UNSOLICITED RESULTS Final Result Performing Organization Address [facility] Co de Phone Number [facility] [address] [place] [address] * TRANSESOPHAGEAL ECHO (COMPLETE) (11/30/2024 3:35 PM EDT) LEFT VENTRICULAR EJECTION FRACTION 50 % [facility] 11/30/2024 2:23 PM EDT us Caroline Hwang MD ECHOCARDIOLOGY Final Result Performing Organization Address City/[facility]/ZIP Co de Phone Number [facility] * (ABNORMAL) GLUCOSE METER, POINT OF CARE (11/30/2024 2:37 PM EDT) Glucose - POCT 134(H) 70 - 120 mg/dL 11/30/2024 2:48 PM EDT [employer] Blood Whole blood specimen / Unknown 11/30/2024 2:37 PM EDT 11/30/2024 2:48 PM EDT us Rika Livingston MD LAB POINT OF CARE TEST DOCKED DEVICE UNSOLICITED RESULTS Final Result [facility] [address] [place] [address] * (ABNORMAL) GLUCOSE METER, POINT OF CARE (11/30/2024 11:39 AM EDT) [facility] Glucose - POCT 131(H) 70 - 120 mg/dL 11/30/2024 11:51 AM EDT [facility] Blood Whole blood specimen / Unknown 11/30/2024 11:39 AM EDT 11/30/2024 11:51 AM EDT us Rika Livingston MD LAB POINT OF CARE TEST DOCKED DEVICE UNSOLICITED RESULTS Final Result [address] [address] * (ABNORMAL) HEPARIN, UNFRACTIONATED (11/30/2024 10:59 AM EDT) [facility] Heparin, Unfractionated 0.51(H) <0.10 IU/mL 11/30/2024 11:26 AM EDT LABORATORY [facility] Comment: Anti-Xa Therapeutic Ranges Neurology/Stroke: 0.15 to 0.35 IU/mL Cardiology/Acute Coronory Syndrome: 0.3 to 0.6 IU/mL Deep Vein Thrombosis/Pulmonary Embolus (DVT/PE): 0.3 to 0.7 IU/mL Note: Hemolysis, icterus, lipemia and very low antithrombin III activity (< 30%) may falsely decrease anti-Xa levels. If anti-Xa subtherapeutic after 3 consecutive titrations, recommend APTT and antithrombin III levels. If APTT >120 seconds rule out hemolysis or icterus. Consult laboratory medicine with any questions. Blood Venous blood specimen / Unknown Venipuncture / Unknown 11/30/2024 10:59 AM EDT 11/30/2024 11:10 AM EDT us Rika Livingston MD LAB BLOOD ORDERABLES Final Result LABORATORY [address] [address] * (ABNORMAL) GLUCOSE METER, POINT OF CARE (11/30/2024 7:41 AM EDT) Pathologist [facility] Glucose - POCT 153(H) 70 - 120 mg/dL 11/30/2024 7:52 AM EDT [facility] Blood Whole blood specimen / Unknown 11/30/2024 7:41 AM EDT 11/30/2024 7:52 AM EDT Rika Livingston MD LAB POINT OF CARE TEST DOCKED DEVICE UNSOLICITED RESULTS Final Result Performing Organization Address City/[facility]/ZIP Co de Phone Number [facility] [address] [place] [address] * PT INR (11/30/2024 5:12 AM EDT) Pathologist [facility] Prothrombin Time 12.4 11.6 - 15.2 seconds 11/30/2024 5:55 AM EDT LAB[facility]ORY [facility] INR 0.9 0.8 - 1.2 11/30/2024 5:55 AM EDT [facility] Blood Venous blood specimen / Unknown Venipuncture / Unknown 11/30/2024 5:12 AM EDT 11/30/2024 5:38 AM EDT Narrative [facility] - 11/30/2024 5:55 AM EDT Warfarin Therapy INR: 2.0-3.0 conventional anticoagulation INR: 2.5-3.5 high intensity anticoagulation Jose Vasquez MD LAB BLOOD ORDERABLES F inal Result [facility] [address] [place] [address] * (ABNORMAL) BASIC METABOLIC PANEL (11/30/2024 5:12 AM EDT) Pathologist [facility] BUN 20 6 - 20 mg/dL 11/30/2024 6:12 AM EDT LAB[facility] CREATININE 1.4(H) 0.6 - 1.2 mg/dL 11/30/2024 6:12 AM EDT [facility] EGFR 60 >=60 mL/min 11/30/2024 6:12 AM EDT [facility] Comment:eGFR is calculated b ased on the CKD-EPI 2020 equation. SODIUM 138 135 - 146 mmol/L 11/30/2024 6:12 AM EDT [facility] POTASSIUM 4.0 3.5 - 5.1 mmol/L 11/30/2024 6:12 AM EDT [facility] CHLORIDE 102 98 - 107 mmol/L 11/30/2024 6:12 AM EDT [facility] CO2 23 22 - 32 mmol/L 11/30/2024 6:12 AM EDT [facility] ANION GAP 13 7 - 15 mmol/L 11/30/2024 6:12 AM EDT [facility] GLUCOSE 148(H) 70 - 120 mg/dL 11/30/2024 6:12 AM EDT [facility] CALCIUM 9.1 8.4 - 10.2 mg/dL 11/30/2024 6:12 AM EDT [facility] Blood Venous blood specimen / Unknown Venipuncture / Unknown 11/30/2024 5:12 AM EDT 11/30/2024 5:38 AM EDT Jose Vasquez MD LAB BLOOD ORDERABLES F inal Result Performing Organization Address City/[facility] Co de Phone Number [facility]ORY [facility] [address] [place] [address] * MAGNESIUM (11/30/2024 5:12 AM EDT) Magnesium 1.8 1.5 - 2.6 mg/dL 11/30/2024 6:12 AM EDT [facility] Blood Venous blood specimen / Unknown Venipuncture / Unknown 11/30/2024 5:12 AM EDT 11/30/2024 5:38 AM EDT Jose Vasquez MD LAB BLOOD ORDERABLES F inal Result Performing Organization Address City/[facility]/ZIP Co de Phone Number [facility] [address] [place] [address] * PHOSPHORUS (11/30/2024 5:12 AM EDT) [facility] Phosphorus 4.3 2.5 - 4.8 mg/dL 11/30/2024 6:12 AM EDT [facility] Blood Venous blood specimen / Unknown Venipuncture / Unknown 11/30/2024 5:12 AM EDT 11/30/2024 5:38 AM EDT Jose Vasquez MD LAB BLOOD ORDERABLES F inal Result Performing Organization Address City/[facility]/ZIP Co de Phone Number [facility] [address] [place] [address] * (ABNORMAL) HEPARIN, UNFRACTIONATED (11/30/2024 5:12 AM EDT) [facility] Heparin, Unfractionated 0.43(H) <0.10 IU/mL 11/30/2024 5:56 AM EDT [facility] Comment: Anti-Xa Therapeutic Ranges Neurology/Stroke: 0.15 to 0.35 IU/mL Cardiology/Acute Coronory Syndrome: 0.3 to 0.6 IU/mL Deep Vein Thrombosis/Pulmonary Embolus (DVT/PE): 0.3 to 0.7 IU/mL Note: Hemolysis, icterus, lipemia and very low antithrombin III activity (< 30%) may falsely decrease anti-Xa levels. If anti-Xa subtherapeutic after 3 consecutive titrations, recommend APTT and antithrombin III levels. If APTT >120 seconds rule out hemolysis or icterus. Consult laboratory medicine with any questions. Blood Venous blood specimen / Unknown Venipuncture / Unknown 11/30/2024 5:12 AM EDT 11/30/2024 5:38 AM EDT Rika Livingston MD LAB BLOOD ORDERABLES Final Result Performing Organization Address City/[facility]/ZIP Co de Phone Number LABORATORY [facility] [address] [place] [address] * (ABNORMAL) CBC (11/30/2024 5:12 AM EDT) [facility] WBC 9.38 4.00 - 10.80 K/uL 11/30/2024 5:52 AM EDT [facility] RBC 3.81 4.50 - 5.25 M/uL 11/30/2024 5:52 AM EDT [facility] HGB 11.4(L) 14.0 - 16.8 g/dL 11/30/2024 5:52 AM EDT [facility] HCT 35.5(L) 40.0 - 48.4 % 11/30/2024 5:52 AM EDT [facility] MCV 93.2 82.0 - 99.5 fL 11/30/2024 5:52 AM EDT [facility] MCH 29.9 27.0 - 34.0 pg 11/30/2024 5:52 AM EDT LABORATORY [facility] MCHC 32.1 32.0 - 36.0 g/dL 11/30/2024 5:52 AM EDT LAB[facility]ATORY [facility] RDW 14.5 11.5 - 15.5 % 11/30/2024 5:52 AM EDT LAB[facility]ATORY [facility] PLT 240 140 - 400 K/uL 11/30/2024 5:52 AM EDT LAB[facility]ATORY [facility] MPV 11.9 6.6 - 11.1 fL 11/30/2024 5:52 AM EDT LAB[facility]ORY [facility] nRBCs 0 <=0 /100 WBCs 11/30/2024 5:52 AM EDT LAB[facility]ATORY [facility] Blood Venous blood specimen / Unknown Venipuncture / Unknown 11/30/2024 5:12 AM EDT 11/30/2024 5:38 AM EDT us Jose Vasquez MD LAB BLOOD ORDERABLES F inal Result LABORATORY [facility] [address] [place] [address] * (ABNORMAL) GLUCOSE METER, POINT OF CARE (11/29/2024 9:36 PM EDT) [facility] Glucose - POCT 131(H) 70 - 120 mg/dL 11/29/2024 9:46 PM EDT [employer] Blood Whole blood specimen / Unknown 11/29/2024 9:36 PM EDT 11/29/2024 9:46 PM EDT Rika Livingston MD LAB POINT OF CARE TEST DOCKED DEVICE UNSOLICITED RESULTS Final Result Performing Organization Address [facility] Co de Phone Number [facility] [address] [place] [address] * (ABNORMAL) HEPARIN, UNFRACTIONATED (11/29/2024 6:46 PM EDT) [facility] Heparin, Unfractionated 0.54(H) <0.10 IU/mL 11/29/2024 7:17 PM EDT LAB[facility]ATORY [facility] Comment: Anti-Xa Therapeutic Ranges Neurology/Stroke: 0.15 to 0.35 IU/mL Cardiology/Acute Coronory Syndrome: 0.3 to 0.6 IU/mL Deep Vein Thrombosis/Pulmonary Embolus (DVT/PE): 0.3 to 0.7 IU/mL Note: Hemolysis, icterus, lipemia and very low antithrombin III activity (< 30%) may falsely decrease anti-Xa levels. If anti-Xa subtherapeutic after 3 consecutive titrations, recommend APTT and antithrombin III levels. If APTT >120 seconds rule out hemolysis or icterus. Consult laboratory medicine with any questions. Blood Venous blood specimen / Unknown Venipuncture / Unknown 11/29/2024 6:46 PM EDT 11/29/2024 6:52 PM EDT Rika Livingston MD LAB BLOOD ORDERABLES Final Result LAB[facility]ATORY [facility] [address] [place] [address] * XR CHEST 1 VIEW (11/29/2024 6:39 PM EDT) Anatomical Region Laterality Modality Chest Computed Radiogr aphy 11/29/2024 7:52 PM EDT Impressions 11/29/2024 7:50 PM EDT IMPRESSION No acute disease is seen in the chest. Narrative 11/29/2024 7:50 PM EDT EXAM XR CHEST 1 VIEW - 11/29/2024 6:39 pm HISTORY new fever TECHNIQUE Single view of the chest was obtained. COMPARISON XR CHEST 1 VIEW, ACC: [id number], dated 2024-11-25 15:20:12; XR CHEST 1 VIEW, ACC: [id number], dated 2024-11-24 02:16:11; CT CHEST W CONTRAST, ACC: [id number], dated 2024-11-23 19:12:20 FINDINGS LINES/TUBES/DEVICES: Aortic valve replacement.. CARDIOMEDIASTINAL SILHOUETTE: Unchanged. LUNGS AND PLEURA: Costophrenic angles are sharp. Lungs are clear. BONES:Sternotomy wires. Procedure Note Adeline Tucker MD - 11/29/2024 EXAM XR CHEST 1 VIEW - 11/29/2024 6:39 pm HISTORY new fever TECHNIQUE Single view of the chest was obtained. COMPARISON XR CHEST 1 VIEW, ACC: [id number], dated 2024-11-25 15:20:12; XR CHEST 1 VIEW, ACC: [id number], dated 2024-11-24 02:16:11; CT CHEST W CONTRAST, ACC: [id number], dated 2024-11-23 19:12:20 FINDINGS LINES/TUBES/DEVICES: Aortic valve replacement.. CARDIOMEDIASTINAL SILHOUETTE: Unchanged. LUNGS AND PLEURA: Costophrenic angles are sharp. Lungs are clear. BONES:Sternotomy wires. IMPRESSION IMPRESSION No acute disease is seen in the chest. Libia Thompson DO RADIOLOGY (RAD GENERAL) Final Result * (ABNORMAL) GLUCOSE METER, POINT OF CARE (11/29/2024 4:42 PM EDT) Glucose - POCT 146(H) 70 - 120 mg/dL 11/29/2024 4:53 PM EDT [employer] Blood Whole blood specimen / Unknown 11/29/2024 4:42 PM EDT 11/29/2024 4:52 PM EDT Rika Livingston MD LAB POINT OF CARE TEST DOCKED DEVICE UNSOLICITED RESULTS Final Result Performing Organization Address [facility] Co de Phone Number [facility] [address] [place] [address] * (ABNORMAL) HEPARIN, UNFRACTIONATED (11/29/2024 12:27 PM EDT) Heparin, Unfractionated 0.53(H) <0.10 IU/mL 11/29/2024 12:57 PM EDT LAB[facility]ORY [facility] Comment: Anti-Xa Therapeutic Ranges Neurology/Stroke: 0.15 to 0.35 IU/mL Cardiology/Acute Coronory Syndrome: 0.3 to 0.6 IU/mL Deep Vein Thrombosis/Pulmonary Embolus (DVT/PE): 0.3 to 0.7 IU/mL Note: Hemolysis, icterus, lipemia and very low antithrombin III activity (< 30%) may falsely decrease anti-Xa levels. If anti-Xa subtherapeutic after 3 consecutive titrations, recommend APTT and antithrombin III levels. If APTT >120 seconds rule out hemolysis or icterus. Consult laboratory medicine with any questions. Blood Venous blood specimen / Unknown Venipuncture / Unknown 11/29/2024 12:27 PM EDT 11/29/2024 12:38 PM EDT us Rika Livingston MD LAB BLOOD ORDERABLES Final Result Performing Organization Address [facility] Co de Phone Number [facility] [address] [place] [address] * (ABNORMAL) GLUCOSE METER, POINT OF CARE (11/29/2024 11:38 AM EDT) Glucose - POCT 150(H) 70 - 120 mg/dL 11/29/2024 12:03 PM EDT [facility] [employer] Blood Whole blood specimen / Unknown 11/29/2024 11:38 AM EDT 11/29/2024 12:03 PM EDT Rika Livingston MD LAB POINT OF CARE TEST DOCKED DEVICE UNSOLICITED RESULTS Final Result Performing Organization Address [facility] Co de Phone Number [facility] [address] [place] [address] * (ABNORMAL) GLUCOSE METER, POINT OF CARE (11/29/2024 7:32 AM EDT) [facility] Glucose - POCT 143(H) 70 - 120 mg/dL 11/29/2024 7:43 AM EDT [facility] Blood Whole blood specimen / Unknown 11/29/2024 7:32 AM EDT 11/29/2024 7:43 AM EDT us Rika Livingston MD LAB POINT OF CARE TEST DOCKED DEVICE UNSOLICITED RESULTS Final Result Performing Organization Address [facility] Co de Phone Number [facility] [address] [place] [address] * (ABNORMAL) CBC (11/29/2024 5:31 AM EDT) [facility] WBC 8.38 4.00 - 10.80 K/uL 11/29/2024 5:55 AM EDT [facility] RBC 3.72 4.50 - 5.25 M/uL 11/29/2024 5:55 AM EDT [facility] HGB 11.0(L) 14.0 - 16.8 g/dL 11/29/2024 5:55 AM EDT [facility] HCT 33.9(L) 40.0 - 48.4 % 11/29/2024 5:55 AM EDT [facility] MCV 91.1 82.0 - 99.5 fL 11/29/2024 5:55 AM EDT [facility] MCH 29.6 27.0 - 34.0 pg 11/29/2024 5:55 AM EDT [facility] MCHC 32.4 32.0 - 36.0 g/dL 11/29/2024 5:55 AM EDT [facility] RDW 14.4 11.5 - 15.5 % 11/29/2024 5:55 AM EDT [facility] PLT 213 140 - 400 K/uL 11/29/2024 5:55 AM EDT [facility] MPV 11.7 6.6 - 11.1 fL 11/29/2024 5:55 AM EDT LAB[facility]ATORY [facility] nRBCs 0 <=0 /100 WBCs 11/29/2024 5:55 AM EDT LAB[facility]ATORY [facility] Blood Venous blood specimen / Unknown Venipuncture / Unknown 11/29/2024 5:31 AM EDT 11/29/2024 5:41 AM EDT Jose Vasquez MD LAB BLOOD ORDERABLES F inal Result Performing Organization Address City/[facility]/ZIP Co de Phone Number LABORATORY [place] [address] [place] [address] * (ABNORMAL) HEPARIN, UNFRACTIONATED (11/29/2024 5:30 AM EDT) Heparin, Unfractionated 0.23(H) <0.10 IU/mL 11/29/2024 6:04 AM EDT LAB[facility]ATORY [facility] Comment: Anti-Xa Therapeutic Ranges Neurology/Stroke: 0.15 to 0.35 IU/mL Cardiology/Acute Coronory Syndrome: 0.3 to 0.6 IU/mL Deep Vein Thrombosis/Pulmonary Embolus (DVT/PE): 0.3 to 0.7 IU/mL Note: Hemolysis, icterus, lipemia and very low antithrombin III activity (< 30%) may falsely decrease anti-Xa levels. If anti-Xa subtherapeutic after 3 consecutive titrations, recommend APTT and antithrombin III levels. If APTT >120 seconds rule out hemolysis or icterus. Consult laboratory medicine with any questions. Blood Venous blood specimen / Unknown Venipuncture / Unknown 11/29/2024 5:30 AM EDT 11/29/2024 5:41 AM EDT Rika Livingston MD LAB BLOOD ORDERABLES Final Result Performing Organization Address City/[facility]/ZIP Co de Phone Number [facility]ATORY [facility] [address] [place] [address] * PT INR (11/29/2024 5:30 AM EDT) Prothrombin Time 12.2 11.6 - 15.2 seconds 11/29/2024 6:02 AM EDT LAB[facility]ATORY [facility] INR 0.9 0.8 - 1.2 11/29/2024 6:02 AM EDT [facility] Blood Venous blood specimen / Unknown Venipuncture / Unknown 11/29/2024 5:30 AM EDT 11/29/2024 5:41 AM EDT Narrative LAB[facility]ATORY [facility] - 11/29/2024 6:02 AM EDT Warfarin Therapy INR: 2.0-3.0 conventional anticoagulation INR: 2.5-3.5 high intensity anticoagulation us Jose Vasquez MD LAB BLOOD ORDERABLES F inal Result LAB[facility]ATORY [facility] [address] [place] [address] * (ABNORMAL) BASIC METABOLIC PANEL (11/29/2024 5:30 AM EDT) BUN 14 6 - 20 mg/dL 11/29/2024 6:12 AM EDT LAB[facility]ATORY [facility] CREATININE 1.1 0.6 - 1.2 mg/dL 11/29/2024 6:12 AM EDT LAB[facility]ATORY [facility] EGFR 78 >=60 mL/min 11/29/2024 6:12 AM EDT LAB[facility]ATORY [facility] Comment:eGFR is calculated b ased on the CKD-EPI 2020 equation. SODIUM 138 135 - 146 mmol/L 11/29/2024 6:12 AM EDT LABORATORY C POTASSIUM 3.9 3.5 - 5.1 mmol/L 11/29/2024 6:12 AM EDT LABORATORY C CHLORIDE 101 98 - 107 mmol/L 11/29/2024 6:12 AM EDT LABORATORY C CO2 25 22 - 32 mmol/L 11/29/2024 6:12 AM EDT LABORATORY C ANION GAP 12 7 - 15 mmol/L 11/29/2024 6:12 AM EDT LAB[facility]ORY [facility] GLUCOSE 152(H) 70 - 120 mg/dL 11/29/2024 6:12 AM EDT LABORATORY C CALCIUM 8.8 8.4 - 10.2 mg/dL 11/29/2024 6:12 AM EDT [facility] Blood Venous blood specimen / Unknown Venipuncture / Unknown 11/29/2024 5:30 AM EDT 11/29/2024 5:41 AM EDT Jose Vasquez MD LAB BLOOD ORDERABLES F inal Result Performing Organization Address City/[facility] Co de Phone Number LAB[facility]ATORY [facility] [address] [place] [address] * MAGNESIUM (11/29/2024 5:30 AM EDT) Magnesium 1.6 1.5 - 2.6 mg/dL 11/29/2024 6:12 AM EDT [facility] Blood Venous blood specimen / Unknown Venipuncture / Unknown 11/29/2024 5:30 AM EDT 11/29/2024 5:41 AM EDT Jose Vasquez MD LAB BLOOD ORDERABLES F inal Result Performing Organization Address [facility] Co de Phone Number LAB[facility]ATORY [facility] [address] [place] [address] * PHOSPHORUS (11/29/2024 5:30 AM EDT) Phosphorus 3.7 2.5 - 4.8 mg/dL 11/29/2024 6:12 AM EDT [facility] Blood Venous blood specimen / Unknown Venipuncture / Unknown 11/29/2024 5:30 AM EDT 11/29/2024 5:41 AM EDT Jose Vasquez MD LAB BLOOD ORDERABLES F inal Result Performing Organization Address City/[facility] de Phone Number LABORATORY [facility] [address] [place] [address] * GLUCOSE METER, POINT OF CARE (11/28/2024 9:22 PM EDT) Glucose - POCT 116 70 - 120 mg/dL 11/28/2024 10:03 PM EDT [facility] Blood Whole blood specimen / Unknown 11/28/2024 9:22 PM EDT 11/28/2024 10:03 PM EDT Rika Livingston MD LAB POINT OF CARE TEST DOCKED DEVICE UNSOLICITED RESULTS Final Result Performing Organization Address City/[facility]/ZIP Co de Phone Number [facility] [address] [place] [address] * (ABNORMAL) HEPARIN, UNFRACTIONATED (11/28/2024 9:08 PM EDT) Heparin, Unfractionated 0.37(H) <0.10 IU/mL 11/28/2024 9:26 PM EDT [facility] Comment: Anti-Xa Therapeutic Ranges Neurology/Stroke: 0.15 to 0.35 IU/mL Cardiology/Acute Coronory Syndrome: 0.3 to 0.6 IU/mL Deep Vein Thrombosis/Pulmonary Embolus (DVT/PE): 0.3 to 0.7 IU/mL Note: Hemolysis, icterus, lipemia and very low antithrombin III activity (< 30%) may falsely decrease anti-Xa levels. If anti-Xa subtherapeutic after 3 consecutive titrations, recommend APTT and antithrombin III levels. If APTT >120 seconds rule out hemolysis or icterus. Consult laboratory medicine with any questions. Blood Venous blood specimen / Unknown Venipuncture / Unknown 11/28/2024 9:08 PM EDT 11/28/2024 9:13 PM EDT Rika Livingston MD LAB BLOOD ORDERABLES Final Result [facility] [address] [place] [address] * (ABNORMAL) GLUCOSE METER, POINT OF CARE (11/28/2024 4:56 PM EDT) Glucose - POCT 144(H) 70 - 120 mg/dL 11/28/2024 5:29 PM EDT [facility] Blood Whole blood specimen / Unknown 11/28/2024 4:56 PM EDT 11/28/2024 5:29 PM EDT us Rika Livingston MD LAB POINT OF CARE TEST DOCKED DEVICE UNSOLICITED RESULTS Final Result Performing Organization Address [facility]/ZIP Co de Phone Number [facility] [address] [place] [address] * (ABNORMAL) GLUCOSE METER, POINT OF CARE (11/28/2024 3:07 PM EDT) [facility] Glucose - POCT 165(H) 70 - 120 mg/dL 11/28/2024 6:26 PM EDT [facility] [employer] [facility] Blood Whole blood specimen / Unknown 11/28/2024 3:07 PM EDT 11/28/2024 6:26 PM EDT Rika Livingston MD LAB POINT OF CARE TEST DOCKED DEVICE UNSOLICITED RESULTS Final Result Performing Organization Address [facility] Co de Phone Number [facility] [address] [place] [address] * VASC CHEHALIS ART DUP LTD LE (11/28/2024 2:52 PM EDT) Anatomical Region Laterality Modality Lower Extremity, Vascular Ultras ound Narrative 11/28/2024 3:14 PM EDT VASCULAR LAB RESULTS DATE OF EXAMINATION: 11/28/24 INDICATION: R/O PSEUDOANEURYSM FEMORAL ARTERY DUPLEX EXAMINATION S/P CATHETERIZATION Immediately before proceeding with the vascular lab procedure reported below, the identity of the patient, the correct exam and the correct procedural site were verified. Jung scale, color flow and spectral doppler were performed for this examination. FINDINGS: Duplex ultrasound of the right groin reveals normal arterial flow in the external iliac artery, common femoral artery and proximal superficial femoral artery segments. Normal venous flow signals are seen in the common femoral vein and distal external iliac vein. No pseudoaneurysm or arteriovenous fistula was identified in the region of the catheterization site. CONCLUSION: Normal right groin duplex with no evidence of pseudoaneurysm or AV fistula. Lauro Baker MD RAD VASCULAR Final R esult * (ABNORMAL) HEPARIN, UNFRACTIONATED (11/28/2024 2:52 PM EDT) Heparin, Unfractionated 0.49(H) <0.10 IU/mL 11/28/2024 3:19 PM EDT [facility] Comment: Anti-Xa Therapeutic Ranges Neurology/Stroke: 0.15 to 0.35 IU/mL Cardiology/Acute Coronory Syndrome: 0.3 to 0.6 IU/mL Deep Vein Thrombosis/Pulmonary Embolus (DVT/PE): 0.3 to 0.7 IU/mL Note: Hemolysis, icterus, lipemia and very low antithrombin III activity (< 30%) may falsely decrease anti-Xa levels. If anti-Xa subtherapeutic after 3 consecutive titrations, recommend APTT and antithrombin III levels. If APTT >120 seconds rule out hemolysis or icterus. Consult laboratory medicine with any questions. Blood Venous blood specimen / Unknown Venipuncture / Unknown 11/28/2024 2:52 PM EDT 11/28/2024 2:59 PM EDT Rika Livingston MD LAB BLOOD ORDERABLES Final Result [facility]ATORY [facility] [address] [place] [address] * TRANSESOPHAGEAL ECHO (COMPLETE) (11/28/2024 2:38 PM EDT) 11/28/2024 1:28 PM EDT Leora Bell MD ECHOCARDIOLOGY Final Result [facility] * (ABNORMAL) GLUCOSE METER, POINT OF CARE (11/28/2024 7:58 AM EDT) Pathologist [facility] Glucose - POCT 133(H) 70 - 120 mg/dL 11/28/2024 8:11 AM EDT [employer] Blood Whole blood specimen / Unknown 11/28/2024 7:58 AM EDT 11/28/2024 8:11 AM EDT Yunier Goodman MD LAB POINT OF CA RE TEST DOCKED DEVICE UNSOLICITED RESULTS Final Result Performing Organization Address [facility] Co de Phone Number [facility] [address] [place] [address] * (ABNORMAL) HEPARIN, UNFRACTIONATED (11/28/2024 7:43 AM EDT) Heparin, Unfractionated 0.67(H) <0.10 IU/mL 11/28/2024 8:25 AM EDT [facility] Comment: Anti-Xa Therapeutic Ranges Neurology/Stroke: 0.15 to 0.35 IU/mL Cardiology/Acute Coronory Syndrome: 0.3 to 0.6 IU/mL Deep Vein Thrombosis/Pulmonary Embolus (DVT/PE): 0.3 to 0.7 IU/mL Note: Hemolysis, icterus, lipemia and very low antithrombin III activity (< 30%) may falsely decrease anti-Xa levels. If anti-Xa subtherapeutic after 3 consecutive titrations, recommend APTT and antithrombin III levels. If APTT >120 seconds rule out hemolysis or icterus. Consult laboratory medicine with any questions. Blood Venous blood specimen / Unknown Venipuncture / Unknown 11/28/2024 7:43 AM EDT 11/28/2024 7:50 AM EDT Yunier Goodman MD LAB BLOOD ORDERABLES Fi nal Result Performing Organization Address City/[facility]/ZIP Co de Phone Number [facility]ORY [facility] [address] [place] [address] * PT INR (11/28/2024 5:51 AM EDT) Prothrombin Time 12.0 11.6 - 15.2 seconds 11/28/2024 6:24 AM EDT LAB[facility] INR 0.9 0.8 - 1.2 11/28/2024 6:24 AM EDT [facility] Blood Venous blood specimen / Unknown Venipuncture / Unknown 11/28/2024 5:51 AM EDT 11/28/2024 6:02 AM EDT Narrative [facility]ORY [facility] - 11/28/2024 6:24 AM EDT Warfarin Therapy INR: 2.0-3.0 conventional anticoagulation INR: 2.5-3.5 high intensity anticoagulation Jose Vasquez MD LAB BLOOD ORDERABLES F inal Result [facility] [address] [place] [address] * (ABNORMAL) BASIC METABOLIC PANEL (11/28/2024 5:51 AM EDT) Pathologist [facility] BUN 13 6 - 20 mg/dL 11/28/2024 6:33 AM EDT LABORATORY [facility] CREATININE 1.1 0.6 - 1.2 mg/dL 11/28/2024 6:33 AM EDT LAB[facility] EGFR 84 >=60 mL/min 11/28/2024 6:33 AM EDT [facility] Comment:eGFR is calculated b ased on the CKD-EPI 2020 equation. SODIUM 139 135 - 146 mmol/L 11/28/2024 6:33 AM EDT LABORATORY C POTASSIUM 4.0 3.5 - 5.1 mmol/L 11/28/2024 6:33 AM EDT LAB[facility] CHLORIDE 103 98 - 107 mmol/L 11/28/2024 6:33 AM EDT LABORATORY C CO2 26 22 - 32 mmol/L 11/28/2024 6:33 AM EDT LAB[facility] ANION GAP 10 7 - 15 mmol/L 11/28/2024 6:33 AM EDT [facility] GLUCOSE 183(H) 70 - 120 mg/dL 11/28/2024 6:33 AM EDT LABORATORY C CALCIUM 8.4 8.4 - 10.2 mg/dL 11/28/2024 6:33 AM EDT [facility] Blood Venous blood specimen / Unknown Venipuncture / Unknown 11/28/2024 5:51 AM EDT 11/28/2024 6:02 AM EDT Jose Vasquez MD LAB BLOOD ORDERABLES F inal Result Performing Organization Address City/[facility] Co de Phone Number LAB[facility]ATORY [facility] [address] [place] [address] * MAGNESIUM (11/28/2024 5:51 AM EDT) Pathologist [facility] Magnesium 1.8 1.5 - 2.6 mg/dL 11/28/2024 6:33 AM EDT [facility] Blood Venous blood specimen / Unknown Venipuncture / Unknown 11/28/2024 5:51 AM EDT 11/28/2024 6:02 AM EDT Jose Vasquez MD LAB BLOOD ORDERABLES F inal Result Performing Organization Address [facility] Co de Phone Number LAB[facility]ORY [facility] [address] [place] [address] * PHOSPHORUS (11/28/2024 5:51 AM EDT) [facility] Phosphorus 3.5 2.5 - 4.8 mg/dL 11/28/2024 6:33 AM EDT [facility] Blood Venous blood specimen / Unknown Venipuncture / Unknown 11/28/2024 5:51 AM EDT 11/28/2024 6:02 AM EDT Jose Vasquez MD LAB BLOOD ORDERABLES F inal Result Performing Organization Address [facility] Co de Phone Number [facility] [address] [place] [address] * (ABNORMAL) HEPARIN, UNFRACTIONATED (11/28/2024 5:51 AM EDT) Pathologist [facility] Heparin, Unfractionated 0.20(H) <0.10 IU/mL 11/28/2024 6:25 AM EDT [facility] Comment: Anti-Xa Therapeutic Ranges Neurology/Stroke: 0.15 to 0.35 IU/mL Cardiology/Acute Coronory Syndrome: 0.3 to 0.6 IU/mL Deep Vein Thrombosis/Pulmonary Embolus (DVT/PE): 0.3 to 0.7 IU/mL Note: Hemolysis, icterus, lipemia and very low antithrombin III activity (< 30%) may falsely decrease anti-Xa levels. If anti-Xa subtherapeutic after 3 consecutive titrations, recommend APTT and antithrombin III levels. If APTT >120 seconds rule out hemolysis or icterus. Consult laboratory medicine with any questions. Blood Venous blood specimen / Unknown Venipuncture / Unknown 11/28/2024 5:51 AM EDT 11/28/2024 6:02 AM EDT us Yunier Goodman MD LAB BLOOD ORDERABLES Fi nal Result [facility] [address] [place] [address] * (ABNORMAL) CBC (11/28/2024 5:51 AM EDT) WBC 8.00 4.00 - 10.80 K/uL 11/28/2024 6:15 AM EDT [facility] RBC 3.43 4.50 - 5.25 M/uL 11/28/2024 6:15 AM EDT [facility] HGB 10.3(L) 14.0 - 16.8 g/dL 11/28/2024 6:15 AM EDT [facility] HCT 31.2(L) 40.0 - 48.4 % 11/28/2024 6:15 AM EDT LABORATORY C MCV 91.0 82.0 - 99.5 fL 11/28/2024 6:15 AM EDT [facility] MCH 30.0 27.0 - 34.0 pg 11/28/2024 6:15 AM EDT [facility] MCHC 33.0 32.0 - 36.0 g/dL 11/28/2024 6:15 AM EDT [facility] RDW 14.3 11.5 - 15.5 % 11/28/2024 6:15 AM EDT [facility] PLT 176 140 - 400 K/uL 11/28/2024 6:15 AM EDT LABORATORY C MPV 11.8 6.6 - 11.1 fL 11/28/2024 6:15 AM EDT [facility] nRBCs 0 <=0 /100 WBCs 11/28/2024 6:15 AM EDT [facility] Blood Venous blood specimen / Unknown Venipuncture / Unknown 11/28/2024 5:51 AM EDT 11/28/2024 6:02 AM EDT us Jose Vasquez MD LAB BLOOD ORDERABLES F inal Result [facility]AT[facility] [address] [place] [address] * (ABNORMAL) GLUCOSE METER, POINT OF CARE (11/27/2024 9:10 PM EDT) Glucose - POCT 241(H) 70 - 120 mg/dL 11/28/2024 12:42 AM EDT [employer] Blood Whole blood specimen / Unknown 11/27/2024 9:10 PM EDT 11/28/2024 12:42 AM EDT Yunier Goodman MD LAB POINT OF CA RE TEST DOCKED DEVICE UNSOLICITED RESULTS Final Result Performing Organization Address [facility] Co de Phone Number [facility] [address] [place] [address] * (ABNORMAL) GLUCOSE METER, POINT OF CARE (11/27/2024 4:59 PM EDT) Glucose - POCT 132(H) 70 - 120 mg/dL 11/27/2024 5:18 PM EDT [employer] Blood Whole blood specimen / Unknown 11/27/2024 4:59 PM EDT 11/27/2024 5:18 PM EDT Yunier Goodman MD LAB POINT OF CA RE TEST DOCKED DEVICE UNSOLICITED RESULTS Final Result Performing Organization Address City/[facility]/ZIP Co de Phone Number [facility] [address] [place] [address] * (ABNORMAL) HEPARIN, UNFRACTIONATED (11/27/2024 4:51 PM EDT) [facility] Heparin, Unfractionated 0.34(H) <0.10 IU/mL 11/27/2024 5:09 PM EDT LABORATORY [facility] Comment: Anti-Xa Therapeutic Ranges Neurology/Stroke: 0.15 to 0.35 IU/mL Cardiology/Acute Coronory Syndrome: 0.3 to 0.6 IU/mL Deep Vein Thrombosis/Pulmonary Embolus (DVT/PE): 0.3 to 0.7 IU/mL Note: Hemolysis, icterus, lipemia and very low antithrombin III activity (< 30%) may falsely decrease anti-Xa levels. If anti-Xa subtherapeutic after 3 consecutive titrations, recommend APTT and antithrombin III levels. If APTT >120 seconds rule out hemolysis or icterus. Consult laboratory medicine with any questions. Blood Venous blood specimen / Unknown Venipuncture / Unknown 11/27/2024 4:51 PM EDT 11/27/2024 4:56 PM EDT Jose Vasquez MD LAB BLOOD ORDERABLES F inal Result Performing Organization Address City/[facility]/ZIP Co [place] [address] * CULTURE, BLOOD (11/27/2024 4:05 PM EDT) [facility] Blood Culture Growth No growth 12/02/2024 5:01 PM EDT [facility]ORY [facility] Blood Venous blood specimen / Unknown Venipuncture / Unknown 11/27/2024 4:05 PM EDT 11/27/2024 4:37 PM EDT Leora Bell MD LAB MICRO - GENERAL ORDERABLES F inal Result LABORATORY [address] [address] * CULTURE, BLOOD (11/27/2024 4:04 PM EDT) [facility] Blood Culture Growth No growth 12/02/2024 5:01 PM EDT LAB[facility]ATORY [facility] Blood Venous blood specimen / Unknown Venipuncture / Unknown 11/27/2024 4:04 PM EDT 11/27/2024 4:37 PM EDT Leora Bell MD LAB MICRO - GENERAL ORDERABLES F inal Result Performing Organization Address City/[facility]/ZIP Co de Phone Number [facility]ATORY [facility] [address] [place] [address] * (ABNORMAL) GLUCOSE METER, POINT OF CARE (11/27/2024 11:55 AM EDT) Glucose - POCT 195(H) 70 - 120 mg/dL 11/27/2024 6:44 PM EDT [facility] Blood Whole blood specimen / Unknown 11/27/2024 11:55 AM EDT 11/27/2024 6:44 PM EDT us Yunier Goodman MD LAB POINT OF CA RE TEST DOCKED DEVICE UNSOLICITED RESULTS Final Result Performing Organization Address City/[facility]/ZIP Co de Phone Number [facility] [address] [place] [address] * (ABNORMAL) HEPARIN, UNFRACTIONATED (11/27/2024 9:41 AM EDT) Heparin, Unfractionated 0.41(H) <0.10 IU/mL 11/27/2024 10:04 AM EDT [facility]ATORY [facility] Comment: Anti-Xa Therapeutic Ranges Neurology/Stroke: 0.15 to 0.35 IU/mL Cardiology/Acute Coronory Syndrome: 0.3 to 0.6 IU/mL Deep Vein Thrombosis/Pulmonary Embolus (DVT/PE): 0.3 to 0.7 IU/mL Note: Hemolysis, icterus, lipemia and very low antithrombin III activity (< 30%) may falsely decrease anti-Xa levels. If anti-Xa subtherapeutic after 3 consecutive titrations, recommend APTT and antithrombin III levels. If APTT >120 seconds rule out hemolysis or icterus. Consult laboratory medicine with any questions. Blood Venous blood specimen / Unknown Venipuncture / Unknown 11/27/2024 9:41 AM EDT 11/27/2024 9:47 AM EDT Yunier Goodman MD LAB BLOOD ORDERABLES Fi nal Result LAB[facility]ATORY [facility] [address] [place] [address] * (ABNORMAL) GLUCOSE METER, POINT OF CARE (11/27/2024 7:52 AM EDT) Glucose - POCT 142(H) 70 - 120 mg/dL 11/27/2024 8:41 AM EDT [facility] Blood Whole blood specimen / Unknown 11/27/2024 7:52 AM EDT 11/27/2024 8:41 AM EDT Yunier Goodman MD LAB POINT OF CA RE TEST DOCKED DEVICE UNSOLICITED RESULTS Final Result Performing Organization Address [facility] Co de Phone Number [facility] [address] [place] [address] * PT INR (11/27/2024 3:12 AM EDT) Prothrombin Time 12.7 11.6 - 15.2 seconds 11/27/2024 3:32 AM EDT LABORATORY [facility] INR 0.9 0.8 - 1.2 11/27/2024 3:32 AM EDT [facility] Blood Venous blood specimen / Unknown Venipuncture / Unknown 11/27/2024 3:12 AM EDT 11/27/2024 3:17 AM EDT Narrative LAB[facility]ATORY [facility] - 11/27/2024 3:32 AM EDT Warfarin Therapy INR: 2.0-3.0 conventional anticoagulation INR: 2.5-3.5 high intensity anticoagulation Jose Vasquez MD LAB BLOOD ORDERABLES F inal Result LAB[facility]ATORY [facility] [address] [place] [address] * (ABNORMAL) BASIC METABOLIC PANEL (11/27/2024 3:12 AM EDT) BUN 12 6 - 20 mg/dL 11/27/2024 3:46 AM EDT LABORATORY [facility] CREATININE 1.0 0.6 - 1.2 mg/dL 11/27/2024 3:46 AM EDT LAB[facility]ATORY [facility] EGFR >90 >=60 mL/min 11/27/2024 3:46 AM EDT LAB[facility]ATORY [facility] Comment:eGFR is calculated b ased on the CKD-EPI 2020 equation. SODIUM 136 135 - 146 mmol/L 11/27/2024 3:46 AM EDT LAB[facility]ATORY [facility] POTASSIUM 4.0 3.5 - 5.1 mmol/L 11/27/2024 3:46 AM EDT LAB[facility]ORY [facility] CHLORIDE 103 98 - 107 mmol/L 11/27/2024 3:46 AM EDT [facility] CO2 22 22 - 32 mmol/L 11/27/2024 3:46 AM EDT LAB[facility]ORY [facility] ANION GAP 11 7 - 15 mmol/L 11/27/2024 3:46 AM EDT LAB[facility]ORY [facility] GLUCOSE 133(H) 70 - 120 mg/dL 11/27/2024 3:46 AM EDT LAB[facility]ATORY [facility] CALCIUM 8.4 8.4 - 10.2 mg/dL 11/27/2024 3:46 AM EDT LABORATORY C Blood Venous blood specimen / Unknown Venipuncture / Unknown 11/27/2024 3:12 AM EDT 11/27/2024 3:17 AM EDT us Jose Vasquez MD LAB BLOOD ORDERABLES F inal Result LABORATORY [facility] [address] [place] [address] * MAGNESIUM (11/27/2024 3:12 AM EDT) Magnesium 1.9 1.5 - 2.6 mg/dL 11/27/2024 3:46 AM EDT LAB[facility]ATORY [facility] Blood Venous blood specimen / Unknown Venipuncture / Unknown 11/27/2024 3:12 AM EDT 11/27/2024 3:17 AM EDT us Jose Vasquez MD LAB BLOOD ORDERABLES F inal Result Performing Organization Address [facility] Co de Phone Number LABORATORY [facility] [address] [place] [address] * PHOSPHORUS (11/27/2024 3:12 AM EDT) Phosphorus 2.8 2.5 - 4.8 mg/dL 11/27/2024 3:46 AM EDT LAB[facility]ATORY [facility] Blood Venous blood specimen / Unknown Venipuncture / Unknown 11/27/2024 3:12 AM EDT 11/27/2024 3:17 AM EDT Jose Vasquez MD LAB BLOOD ORDERABLES F inal Result Performing Organization Address [facility] de Phone Number LABORATORY [place] [address] [place] [address] * (ABNORMAL) HEPARIN, UNFRACTIONATED (11/27/2024 3:12 AM EDT) Pathologist [facility] Heparin, Unfractionated 0.29(H) <0.10 IU/mL 11/27/2024 3:33 AM EDT LAB[facility]ATORY [facility] Comment: Anti-Xa Therapeutic Ranges Neurology/Stroke: 0.15 to 0.35 IU/mL Cardiology/Acute Coronory Syndrome: 0.3 to 0.6 IU/mL Deep Vein Thrombosis/Pulmonary Embolus (DVT/PE): 0.3 to 0.7 IU/mL Note: Hemolysis, icterus, lipemia and very low antithrombin III activity (< 30%) may falsely decrease anti-Xa levels. If anti-Xa subtherapeutic after 3 consecutive titrations, recommend APTT and antithrombin III levels. If APTT >120 seconds rule out hemolysis or icterus. Consult laboratory medicine with any questions. Blood Venous blood specimen / Unknown Venipuncture / Unknown 11/27/2024 3:12 AM EDT 11/27/2024 3:17 AM EDT us Yunier Goodman MD LAB BLOOD ORDERABLES Fi nal Result LAB[facility]ATORY [facility] [address] [place] [address] * (ABNORMAL) CBC (11/27/2024 3:12 AM EDT) WBC 8.46 4.00 - 10.80 K/uL 11/27/2024 3:34 AM EDT LABORATORY [facility] RBC 3.55 4.50 - 5.25 M/uL 11/27/2024 3:34 AM EDT LAB[facility]ATORY [facility] HGB 10.6(L) 14.0 - 16.8 g/dL 11/27/2024 3:34 AM EDT LAB[facility]ATORY [facility] HCT 32.3(L) 40.0 - 48.4 % 11/27/2024 3:34 AM EDT LAB[facility]ATORY [facility] MCV 91.0 82.0 - 99.5 fL 11/27/2024 3:34 AM EDT LAB[facility]ATORY [facility] MCH 29.9 27.0 - 34.0 pg 11/27/2024 3:34 AM EDT LAB[facility]ATORY [facility] MCHC 32.8 32.0 - 36.0 g/dL 11/27/2024 3:34 AM EDT LABORATORY [facility] RDW 14.3 11.5 - 15.5 % 11/27/2024 3:34 AM EDT LAB[facility]ATORY [facility] PLT 143 140 - 400 K/uL 11/27/2024 3:34 AM EDT LAB[facility]ATORY [facility] MPV 12.1 6.6 - 11.1 fL 11/27/2024 3:34 AM EDT LAB[facility]ATORY [facility] nRBCs 0 <=0 /100 WBCs 11/27/2024 3:34 AM EDT LAB[facility]ATORY [facility] Blood Venous blood specimen / Unknown Venipuncture / Unknown 11/27/2024 3:12 AM EDT 11/27/2024 3:17 AM EDT us Jose Vasquez MD LAB BLOOD ORDERABLES F inal Result LAB[facility]ATORY [facility] [address] [place] [address] * (ABNORMAL) GLUCOSE METER, POINT OF CARE (11/26/2024 8:55 PM EDT) [facility] Glucose - POCT 138(H) 70 - 120 mg/dL 11/26/2024 9:06 PM EDT [facility] Blood Whole blood specimen / Unknown 11/26/2024 8:55 PM EDT 11/26/2024 9:06 PM EDT Yunier Goodman MD LAB POINT OF CA RE TEST DOCKED DEVICE UNSOLICITED RESULTS Final Result Performing Organization Address City/[facility] Co de Phone Number [place] [address] [place] [address] * (ABNORMAL) HEPARIN, UNFRACTIONATED (11/26/2024 7:44 PM EDT) [facility] Heparin, Unfractionated 0.17(H) <0.10 IU/mL 11/26/2024 8:06 PM EDT LAB[facility]ATORY [facility] Comment: Anti-Xa Therapeutic Ranges Neurology/Stroke: 0.15 to 0.35 IU/mL Cardiology/Acute Coronory Syndrome: 0.3 to 0.6 IU/mL Deep Vein Thrombosis/Pulmonary Embolus (DVT/PE): 0.3 to 0.7 IU/mL Note: Hemolysis, icterus, lipemia and very low antithrombin III activity (< 30%) may falsely decrease anti-Xa levels. If anti-Xa subtherapeutic after 3 consecutive titrations, recommend APTT and antithrombin III levels. If APTT >120 seconds rule out hemolysis or icterus. Consult laboratory medicine with any questions. Blood Venous blood specimen / Unknown Venipuncture / Unknown 11/26/2024 7:44 PM EDT 11/26/2024 7:54 PM EDT us Yunier Goodman MD LAB BLOOD ORDERABLES Fi nal Result LABORATORY [address] [address] * (ABNORMAL) GLUCOSE METER, POINT OF CARE (11/26/2024 5:04 PM EDT) Glucose - POCT 238(H) 70 - 120 mg/dL 11/26/2024 9:05 PM EDT [facility] Blood Whole blood specimen / Unknown 11/26/2024 5:04 PM EDT 11/26/2024 9:05 PM EDT Yunier Goodman MD LAB POINT OF CA RE TEST DOCKED DEVICE UNSOLICITED RESULTS Final Result [facility] [address] [place] [address] * (ABNORMAL) GLUCOSE METER, POINT OF CARE (11/26/2024 12:50 PM EDT) Glucose - POCT 133(H) 70 - 120 mg/dL 11/26/2024 1:01 PM EDT [facility] [employer] Blood Whole blood specimen / Unknown 11/26/2024 12:50 PM EDT 11/26/2024 1:01 PM EDT Luis Alfredo Hutchins DO LAB POINT OF CAR E TEST DOCKED DEVICE UNSOLICITED RESULTS Final Result [facility] [address] [place] [address] * (ABNORMAL) HEPARIN, UNFRACTIONATED (11/26/2024 12:21 PM EDT) Heparin, Unfractionated 0.12(H) <0.10 IU/mL 11/26/2024 1:13 PM EDT LABORATORY C Comment: Anti-Xa Therapeutic Ranges Neurology/Stroke: 0.15 to 0.35 IU/mL Cardiology/Acute Coronory Syndrome: 0.3 to 0.6 IU/mL Deep Vein Thrombosis/Pulmonary Embolus (DVT/PE): 0.3 to 0.7 IU/mL Note: Hemolysis, icterus, lipemia and very low antithrombin III activity (< 30%) may falsely decrease anti-Xa levels. If anti-Xa subtherapeutic after 3 consecutive titrations, recommend APTT and antithrombin III levels. If APTT >120 seconds rule out hemolysis or icterus. Consult laboratory medicine with any questions. Blood Venous blood specimen / Unknown Venipuncture / Unknown 11/26/2024 12:21 PM EDT 11/26/2024 12:35 PM EDT us Shanna Lopes DO LAB BLOOD ORDERABLES Final Resu lt LABORATORY [facility] [address] [place] [address] * (ABNORMAL) CBC (11/26/2024 12:21 PM EDT) WBC 9.51 4.00 - 10.80 K/uL 11/26/2024 1:07 PM EDT LABORATORY [facility] RBC 3.67 4.50 - 5.25 M/uL 11/26/2024 1:07 PM EDT LAB[facility]ATORY [facility] HGB 10.9(L) 14.0 - 16.8 g/dL 11/26/2024 1:07 PM EDT LABORATORY [facility] HCT 32.8(L) 40.0 - 48.4 % 11/26/2024 1:07 PM EDT LABORATORY [facility] MCV 89.4 82.0 - 99.5 fL 11/26/2024 1:07 PM EDT LABORATORY [facility] MCH 29.7 27.0 - 34.0 pg 11/26/2024 1:07 PM EDT LABORATORY [facility] MCHC 33.2 32.0 - 36.0 g/dL 11/26/2024 1:07 PM EDT LABORATORY [facility] RDW 14.5 11.5 - 15.5 % 11/26/2024 1:07 PM EDT LABORATORY [facility] PLT 150 140 - 400 K/uL 11/26/2024 1:07 PM EDT LABORATORY [facility] MPV 11.9 6.6 - 11.1 fL 11/26/2024 1:07 PM EDT LABORATORY [facility] nRBCs 0 <=0 /100 WBCs 11/26/2024 1:07 PM EDT LAB[facility]ORY [facility] Blood Venous blood specimen / Unknown Venipuncture / Unknown 11/26/2024 12:21 PM EDT 11/26/2024 12:36 PM EDT [employer] DO LAB BLOOD ORDERABLES Final Resu lt Performing Organization Address [facility]/ZIP Co de Phone Number LABORATORY [facility] [address] [place] [address] * APTT (11/26/2024 12:21 PM EDT) aPTT 23 21 - 38 seconds 11/26/2024 1:13 PM EDT LABORATORY [facility] Blood Venous blood specimen / Unknown Venipuncture / Unknown 11/26/2024 12:21 PM EDT 11/26/2024 12:35 PM EDT Narrative LABORATORY [facility] - 11/26/2024 1:13 PM EDT Anticoagulation may affect testing. Refer to [employer] for a list of effects. [employer] DO LAB BLOOD ORDERABLES Final Resu lt Performing Organization Address [facility] Co de Phone Number LABORATORY [facility] [address] [place] [address] * PT INR (11/26/2024 12:21 PM EDT) Prothrombin Time 12.3 11.6 - 15.2 seconds 11/26/2024 1:13 PM EDT LABORATORY [facility] INR 0.9 0.8 - 1.2 11/26/2024 1:13 PM EDT LABORATORY [facility] Blood Venous blood specimen / Unknown Venipuncture / Unknown 11/26/2024 12:21 PM EDT 11/26/2024 12:35 PM EDT Narrative LABORATORY C - 11/26/2024 1:13 PM EDT Warfarin Therapy INR: 2.0-3.0 conventional anticoagulation INR: 2.5-3.5 high intensity anticoagulation [facility] LAB BLOOD ORDERABLES Final Resu lt Performing Organization Address [facility]/ZIP Co de Phone Number LABORATORY [facility] [address] [place] [address] * (ABNORMAL) GLUCOSE METER, POINT OF CARE (11/26/2024 8:00 AM EDT) [facility] Glucose - POCT 145(H) 70 - 120 mg/dL 11/26/2024 1:00 PM EDT [facility] Blood Whole blood specimen / Unknown 11/26/2024 8:00 AM EDT 11/26/2024 1:00 PM EDT Luis Alfredo Hutchins LAB POINT OF CAR E TEST DOCKED DEVICE UNSOLICITED RESULTS Final Result Performing Organization Address [facility] Co de Phone Number [facility] [address] [place] [address] * (ABNORMAL) CALCIUM, IONIZED, WHOLE BLOOD (11/26/2024 7:53 AM EDT) [facility] Calcium, Ionized 1.08(L) 1.13 - 1.32 mmol/L 11/26/2024 8:03 AM EDT LABORATORY [facility] Blood Venous blood specimen / Unknown Venipuncture / Unknown 11/26/2024 7:53 AM EDT 11/26/2024 7:59 AM EDT [facility] LAB BLOOD ORDERABLES Final Resu lt Performing Organization Address City/[facility]/ZIP Co de Phone Number LABORATORY [facility] [address] [place] [address] * (ABNORMAL) BASIC METABOLIC PANEL (11/26/2024 5:55 AM EDT) [facility] BUN 10 6 - 20 mg/dL 11/26/2024 7:15 AM EDT LABORATORY [facility] CREATININE 0.9 0.6 - 1.2 mg/dL 11/26/2024 7:15 AM EDT LABORATORY [facility] EGFR >90 >=60 mL/min 11/26/2024 7:15 AM EDT LAB[facility]ATORY [facility] Comment:eGFR is calculated b ased on the CKD-EPI 2020 equation. SODIUM 138 135 - 146 mmol/L 11/26/2024 7:15 AM EDT LABORATORY [facility] POTASSIUM 3.6 3.5 - 5.1 mmol/L 11/26/2024 7:15 AM EDT LAB[facility] CHLORIDE 104 98 - 107 mmol/L 11/26/2024 7:15 AM EDT LAB[facility] CO2 23 22 - 32 mmol/L 11/26/2024 7:15 AM EDT LAB[facility] ANION GAP 11 7 - 15 mmol/L 11/26/2024 7:15 AM EDT LAB[facility] GLUCOSE 136(H) 70 - 120 mg/dL 11/26/2024 7:15 AM EDT LAB[facility]ATORY [facility] CALCIUM 7.9(L) 8.4 - 10.2 mg/dL 11/26/2024 7:15 AM EDT LABORATORY C Blood Venous blood specimen / Unknown Venipuncture / Unknown 11/26/2024 5:55 AM EDT 11/26/2024 6:40 AM EDT Jose Vasquez MD LAB BLOOD ORDERABLES F inal Result Performing Organization Address City/[facility]/ZIP Co de Phone Number LABORATORY [facility] [address] [place] [address] * MAGNESIUM (11/26/2024 5:55 AM EDT) [facility] Magnesium 1.7 1.5 - 2.6 mg/dL 11/26/2024 7:15 AM EDT LABORATORY [facility] Blood Venous blood specimen / Unknown Venipuncture / Unknown 11/26/2024 5:55 AM EDT 11/26/2024 6:40 AM EDT Jose Vasquez MD LAB BLOOD ORDERABLES F inal Result Performing Organization Address City/[facility]/ZIP Co de Phone Number LABORATORY [facility] [address] [place] [address] * PHOSPHORUS (11/26/2024 5:55 AM EDT) Pathologist [facility] Phosphorus 2.8 2.5 - 4.8 mg/dL 11/26/2024 7:15 AM EDT LAB[facility]ATORY [facility] Blood Venous blood specimen / Unknown Venipuncture / Unknown 11/26/2024 5:55 AM EDT 11/26/2024 6:40 AM EDT Jose Vasquez MD LAB BLOOD ORDERABLES F inal Result LAB[facility]ATORY [facility] [address] [place] [address] * (ABNORMAL) CBC (11/26/2024 5:55 AM EDT) [facility] WBC 8.64 4.00 - 10.80 K/uL 11/26/2024 6:56 AM EDT LAB[facility]ATORY [facility] RBC 3.48 4.50 - 5.25 M/uL 11/26/2024 6:56 AM EDT LAB[facility] HGB 10.3(L) 14.0 - 16.8 g/dL 11/26/2024 6:56 AM EDT LAB[facility] HCT 31.6(L) 40.0 - 48.4 % 11/26/2024 6:56 AM EDT LAB[facility] MCV 90.8 82.0 - 99.5 fL 11/26/2024 6:56 AM EDT LAB[facility] MCH 29.6 27.0 - 34.0 pg 11/26/2024 6:56 AM EDT LAB[facility] MCHC 32.6 32.0 - 36.0 g/dL 11/26/2024 6:56 AM EDT LAB[facility] RDW 14.7 11.5 - 15.5 % 11/26/2024 6:56 AM EDT LAB[facility] PLT 118(L) 140 - 400 K/uL 11/26/2024 6:56 AM EDT LAB[facility] MPV 12.4 6.6 - 11.1 fL 11/26/2024 6:56 AM EDT LAB[facility] nRBCs 0 <=0 /100 WBCs 11/26/2024 6:56 AM EDT LAB[facility] Blood Venous blood specimen / Unknown Venipuncture / Unknown 11/26/2024 5:55 AM EDT 11/26/2024 6:40 AM EDT us Jose Vasquez MD LAB BLOOD ORDERABLES F inal Result LABORATORY [facility] [address] [place] [address] * MRI BRAIN WITHOUT CONTRAST (11/25/2024 11:57 PM EDT) Anatomical Region Laterality Modality Neuro, Head Magnetic Resonan ce 11/26/2024 4:47 AM EDT Impressions 11/26/2024 4:45 AM EDT IMPRESSION 1. Small acute left MCA infarct. No acute hemorrhagic transformation or herniation. 2. Additional small to moderate chronic left MCA territory infarct. Other chronic scattered supratentorial and infratentorial multi territorial infarcts. 3. Recommend short interval non-contrast CT head follow-up. Added to [employer] result communication system on 11/26/2024 at 4:33 am. Narrative 11/26/2024 4:45 AM EDT EXAM MRI BRAIN WITHOUT CONTRAST-11/18/[address] HEAD_BRAIN WO CONTRAST, ACC: [id number], dated 2024-11-24 04:07:25; CT HEAD_BRAIN WO CONTRAST, ACC: [id number], dated 2024-11-23 19:01:06 TECHNIQUE Multi-planar, multi-sequence, magnetic resonance imaging of the brain was performed without the administration of intravenous contrast. Limitations: Some sequences are degraded by patient motion and artifact. FINDINGS No acute hemorrhage. Small to moderate acute left MCA territory infarcts, most pronounced in the left temporal lobe with some involvement of the insula and left frontal lobe. Left M1 flow void is maintained. See the prior angiographic report for additional details. Chronic left MCA infarct. Chronic skpo-gvavsld-pygk-right thalamus infarcts. 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 Scattered chronic hemosiderin deposition, the sequela prior infarcts and other etiology indeterminate scattered punctate foci which could be related to chronic hypertension sequela, embolus angiopathy, or other less common etiologies. No herniation. Otherwise, there is global parenchymal volume loss with proportionate enlargement of the ventricles, sulci and cisterns. Patchy foci of increased T2/FLAIR hyperintensity are scattered throughout the bilateral periventricular and subcortical white matter, nonspecific, but most commonly the sequela of chronic microvascular change. No evidence for acute sinusitis. Mastoid air cells are clear. No acute orbital or osseous finding. Procedure Note Sander Mancuso MD - 11/26/2024 EXAM MRI BRAIN WITHOUT CONTRAST-11/18/[address] HEAD_BRAIN WO CONTRAST, ACC: [id number], dated 2024-11-24 04:07:25; CT HEAD_BRAIN WO CONTRAST, ACC: [id number], dated 2024-11-23 19:01:06 TECHNIQUE Multi-planar, multi-sequence, magnetic resonance imaging of the brain wasperformed without the administration of intravenous contrast. Limitations: Some sequences are degraded by patient motion andartifact. FINDINGS No acute hemorrhage. Small to moderate acute left MCA territory infarcts,most pronounced in the left temporal lobe with some involvement of theinsula and left frontal lobe. Left M1 flow void is maintained. See theprior angiographic report for additional details. Chronic left MCAinfarct. Chronic bzis-cbimwys-hxyw-right thalamus infarcts. Leftbrainstem wallerian degeneration. Chronic bilateral multifocal cerebellarinfarcts. Scattered chronic hemosiderin deposition, the sequela priorinfarcts and other etiology indeterminate scattered punctate foci whichcould be related to chronic hypertension sequela, embolus angiopathy, orother less common etiologies. No herniation. Otherwise, there is global parenchymal volume loss with proportionateenlargement of the ventricles, sulci and cisterns. Patchy foci ofincreased T2/FLAIR hyperintensity are scattered throughout the bilateralperiventricular and subcortical white matter, nonspecific, but mostcommonly the sequela of chronic microvascular change. No evidence for acute sinusitis. Mastoid air cells are clear. No acuteorbital or osseous finding. IMPRESSION IMPRESSION 1. Small acute left MCA infarct. No acute hemorrhagic transformation orherniation. 2. Additional small to moderate chronic left MCA territory infarct. Otherchronic scattered supratentorial and infratentorial multi territorialinfarcts. 3. Recommend short interval non-contrast CT head follow-up. Added to [employer] result communication system on 11/26/2024 at 4:33 am. Jaida MITCHELL RAD MRI-MRA Final Result * (ABNORMAL) GLUCOSE METER, POINT OF CARE (11/25/2024 9:33 PM EDT) Pathologist [facility] Glucose - POCT 157(H) 70 - 120 mg/dL 11/25/2024 9:36 PM EDT [facility] Blood Whole blood specimen / Unknown 11/25/2024 9:33 PM EDT 11/25/2024 9:36 PM EDT Osorio Gilmore MD LAB POINT OF CARE TE ST DOCKED DEVICE UNSOLICITED RESULTS Final Result [facility] [address] [place] [address] * TROPONIN T, HIGH SENSITIVITY (11/25/2024 4:54 PM EDT) [facility] Troponin T, High Sensitivity 16 <=22 ng/L 11/25/2024 5:26 PM EDT LABORATORY [facility] Blood Venous blood specimen / Unknown Venipuncture / Unknown 11/25/2024 4:54 PM EDT 11/25/2024 5:00 PM EDT Shanna Lopes DO LAB BLOOD ORDERABLES Final Resu lt LABORATORY [facility] [address] [place] [address] * EKG (11/25/2024 4:14 PM EDT) 11/25/2024 4:14 PM EDT Narrative Procedure Note Severo Moore DO - 11/25/2024 4:14 PM EDT REASON FOR STUDY: Chest pain;Chest pain;Chest pain CONCLUSIONS: Normal sinus rhythm Left ventricular hypertrophy with secondary QRS widening andrepolarization abnormality ( R in aVL , Bernardino product ) left axis deviation Ventricular Rate: 96 Atrial Rate: 96 IA Interval: 184 QRS Duration: 116 QT/QTc: 354/447 ms P-R-T [place]: 4 : -29 : 88 degrees us Shanna Lopes DO EKG Final Result [facility] * (ABNORMAL) GLUCOSE METER, POINT OF CARE (11/25/2024 3:43 PM EDT) Glucose - POCT 146(H) 70 - 120 mg/dL 11/25/2024 4:05 PM EDT [facility] Blood Whole blood specimen / Unknown 11/25/2024 3:43 PM EDT 11/25/2024 4:05 PM EDT Osorio Gilmore MD LAB POINT OF CARE TE ST DOCKED DEVICE UNSOLICITED RESULTS Final Result Performing Organization Address [facility] Co de Phone Number [facility] [address] [place] [address] * XR CHEST 1 VIEW (11/25/2024 3:35 PM EDT) Anatomical Region Laterality Modality Chest Computed Radiogr aphy 11/25/2024 5:27 PM EDT Impressions 11/25/2024 5:25 PM EDT IMPRESSION Improving bibasilar atelectasis. Narrative 11/25/2024 5:25 PM EDT EXAM XR CHEST 1 VIEW-11/25/2024 3:35 pm HISTORY hypoxia COMPARISON Chest radiograph dated 11/24/2024 TECHNIQUE AP erect views of the chest were obtained FINDINGS LINES/DEVICES: Stable tricuspid valve prosthesis. Previously seen endotracheal and enteric tubes and a right IJ central venous sheath have been removed. LUNGS/PLEURA: Linear airspace opacities at both lung bases have slightly improved in the interim and likely represent atelectasis. No new opacities. No pleural effusion or pneumothorax. CARDIOVASCULAR/MEDIASTINUM: Stable enlargement of the cardiomediastinal silhouette. OTHER: Unremarkable upper abdomen. Stable appearance of multiple fractured median sternotomy wires. No acute osseous abnormality. Procedure Note Tye Diamond MD - 11/25/2024 EXAM XR CHEST 1 VIEW-11/25/2024 3:35 pm HISTORY hypoxia COMPARISON Chest radiograph dated 11/24/2024 TECHNIQUE AP erect views of the chest were obtained FINDINGS LINES/DEVICES: Stable tricuspid valve prosthesis. Previously seenendotracheal and enteric tubes and a right IJ central venous sheath havebeen removed. LUNGS/PLEURA: Linear airspace opacities at both lung bases have slightlyimproved in the interim and likely represent atelectasis. No newopacities. No pleural effusion or pneumothorax. CARDIOVASCULAR/MEDIASTINUM: Stable enlargement of the cardiomediastinalsilhouette. OTHER: Unremarkable upper abdomen. Stable appearance of multiplefractured median sternotomy wires. No acute osseous abnormality. IMPRESSION IMPRESSION Improving bibasilar atelectasis. Esther Espinal MD RADIOLOGY ([facility]) Final Re sult * ECHO, COMPLETE (2D), TRANS-THORACIC (11/25/2024 2:51 PM EDT) Pathologist [facility] LEFT VENTRICULAR EJECTION FRACTION 50 % [facility] CARDIOLOGY 11/25/2024 1:37 PM EDT Jaida MITCHELL ECHOCARDIOLOGY Edited Result - Final [facility] CARDIOLOG[facility] * (ABNORMAL) HEMOGLOBIN AND HEMATOCRIT PANEL (11/25/2024 2:27 PM EDT) HGB 10.1(L) 14.0 - 16.8 g/dL 11/25/2024 3:00 PM EDT [facility] HCT 30.5(L) 40.0 - 48.4 % 11/25/2024 3:00 PM EDT [facility] Blood Venous blood specimen / Unknown Venipuncture / Unknown 11/25/2024 2:27 PM EDT 11/25/2024 2:38 PM EDT Sergey Silva DO LAB BLOOD ORDERABLES F inal Result [facility] [address] [place] [address] * (ABNORMAL) GLUCOSE METER, POINT OF CARE (11/25/2024 11:53 AM EDT) Glucose - POCT 167(H) 70 - 120 mg/dL 11/25/2024 4:05 PM EDT [facility] Blood Whole blood specimen / Unknown 11/25/2024 11:53 AM EDT 11/25/2024 4:05 PM EDT Osorio Gilmore MD LAB POINT OF CARE TE ST DOCKED DEVICE UNSOLICITED RESULTS Final Result [facility] [address] [place] [address] * (ABNORMAL) GLUCOSE METER, POINT OF CARE (11/25/2024 8:56 AM EDT) Glucose - POCT 139(H) 70 - 120 mg/dL 11/25/2024 4:06 PM EDT [employer] Blood Whole blood specimen / Unknown 11/25/2024 8:56 AM EDT 11/25/2024 4:06 PM EDT Osorio Gilmore MD LAB POINT OF CARE TE ST DOCKED DEVICE UNSOLICITED RESULTS Final Result [facility] [address] [place] [address] * (ABNORMAL) GLUCOSE METER, POINT OF CARE (11/25/2024 5:22 AM EDT) Glucose - POCT 125(H) 70 - 120 mg/dL 11/25/2024 6:22 AM EDT [facility] Blood Whole blood specimen / Unknown 11/25/2024 5:22 AM EDT 11/25/2024 6:22 AM EDT us Nolan Maxine Long DO LAB POINT OF CARE TE ST DOCKED DEVICE UNSOLICITED RESULTS Final Result [facility] [address] [place] [address] * (ABNORMAL) BASIC METABOLIC PANEL (11/25/2024 5:20 AM EDT) BUN 14 6 - 20 mg/dL 11/25/2024 6:11 AM EDT [facility] CREATININE 1.1 0.6 - 1.2 mg/dL 11/25/2024 6:11 AM EDT [facility] EGFR 82 >=60 mL/min 11/25/2024 6:11 AM EDT [facility] Comment:eGFR is calculated b ased on the CKD-EPI 2020 equation. SODIUM 139 135 - 146 mmol/L 11/25/2024 6:11 AM EDT [facility] POTASSIUM 3.7 3.5 - 5.1 mmol/L 11/25/2024 6:11 AM EDT [facility] CHLORIDE 107 98 - 107 mmol/L 11/25/2024 6:11 AM EDT [facility] CO2 23 22 - 32 mmol/L 11/25/2024 6:11 AM EDT [facility] ANION GAP 9 7 - 15 mmol/L 11/25/2024 6:11 AM EDT [facility] GLUCOSE 131(H) 70 - 120 mg/dL 11/25/2024 6:11 AM EDT [facility] CALCIUM 7.8(L) 8.4 - 10.2 mg/dL 11/25/2024 6:11 AM EDT LABORATORY C Blood Arterial blood specimen / Unknown Arterial Line / Unknown 11/25/2024 5:20 AM EDT 11/25/2024 5:29 AM EDT us Jose Vasquez MD LAB BLOOD ORDERABLES F inal Result [facility] [address] [place] [address] * MAGNESIUM (11/25/2024 5:20 AM EDT) Magnesium 1.9 1.5 - 2.6 mg/dL 11/25/2024 6:11 AM EDT [facility] Blood Arterial blood specimen / Unknown Arterial Line / Unknown 11/25/2024 5:20 AM EDT 11/25/2024 5:29 AM EDT Jose Vasquez MD LAB BLOOD ORDERABLES F inal Result Performing Organization Address City/[facility]/ZIP Co de Phone Number [facility]ORATORY [facility] [address] [place] [address] * (ABNORMAL) PHOSPHORUS (11/25/2024 5:20 AM EDT) Phosphorus 2.1(L) 2.5 - 4.8 mg/dL 11/25/2024 6:11 AM EDT [facility] Blood Arterial blood specimen / Unknown Arterial Line / Unknown 11/25/2024 5:20 AM EDT 11/25/2024 5:29 AM EDT Jose Vasquez MD LAB BLOOD ORDERABLES F inal Result Performing Organization Address [facility] de Phone Number LABORATORY [facility] [address] [place] [address] * (ABNORMAL) CBC (11/25/2024 5:20 AM EDT) WBC 8.79 4.00 - 10.80 K/uL 11/25/2024 5:44 AM EDT [facility] RBC 3.33 4.50 - 5.25 M/uL 11/25/2024 5:44 AM EDT [facility] HGB 9.9(L) 14.0 - 16.8 g/dL 11/25/2024 5:44 AM EDT [facility] HCT 29.9(L) 40.0 - 48.4 % 11/25/2024 5:44 AM EDT [facility] MCV 89.8 82.0 - 99.5 fL 11/25/2024 5:44 AM EDT [facility] MCH 29.7 27.0 - 34.0 pg 11/25/2024 5:44 AM EDT [facility] MCHC 33.1 32.0 - 36.0 g/dL 11/25/2024 5:44 AM EDT [facility] RDW 15.0 11.5 - 15.5 % 11/25/2024 5:44 AM EDT [facility] PLT 116(L) 140 - 400 K/uL 11/25/2024 5:44 AM EDT [facility] MPV 11.6 6.6 - 11.1 fL 11/25/2024 5:44 AM EDT [facility] nRBCs 0 <=0 /100 WBCs 11/25/2024 5:44 AM EDT [facility] Blood Arterial blood specimen / Unknown Arterial Line / Unknown 11/25/2024 5:20 AM EDT 11/25/2024 5:29 AM EDT us Jose Vasquez MD LAB BLOOD ORDERABLES F inal Result [facility]ORY [facility] [address] [place] [address] * (ABNORMAL) GLUCOSE METER, POINT OF CARE (11/24/2024 11:46 PM EDT) [facility] Glucose - POCT 131(H) 70 - 120 mg/dL 11/25/2024 6:21 AM EDT [facility] Blood Whole blood specimen / Unknown 11/24/2024 11:46 PM EDT 11/25/2024 6:21 AM EDT us Nolan Price DO LAB POINT OF CARE TE ST DOCKED DEVICE UNSOLICITED RESULTS Final Result [facility] [address] [place] [address] * LACTATE (11/24/2024 6:07 PM EDT) Pathologist [facility] Lactate 1.9 0.4 - 2.0 mmol/L 11/24/2024 6:56 PM EDT LAB[facility]ATORY [facility] Blood Arterial blood specimen / Unknown Venipuncture / Unknown 11/24/2024 6:07 PM EDT 11/24/2024 6:27 PM EDT us Jaida MITCHELL LAB BLOOD ORDERABLES F inal Result [facility]ORY [facility] [address] [place] [address] * (ABNORMAL) GLUCOSE METER, POINT OF CARE (11/24/2024 4:47 PM EDT) Glucose - POCT 216(H) 70 - 120 mg/dL 11/24/2024 5:04 PM EDT [facility] Blood Whole blood specimen / Unknown 11/24/2024 4:47 PM EDT 11/24/2024 5:04 PM EDT us Luis Alfredo Hutchins DO LAB POINT OF CAR E TEST DOCKED DEVICE UNSOLICITED RESULTS Final Result Performing Organization Address [facility] Co de Phone Number [facility] [address] [place] [address] * (ABNORMAL) GLUCOSE METER, POINT OF CARE (11/24/2024 12:08 PM EDT) [facility] Glucose - POCT 164(H) 70 - 120 mg/dL 11/24/2024 12:44 PM EDT [facility] Blood Whole blood specimen / Unknown 11/24/2024 12:08 PM EDT 11/24/2024 12:44 PM EDT us Osorio Gilmore MD LAB POINT OF CARE TE ST DOCKED DEVICE UNSOLICITED RESULTS Final Result Performing Organization Address City/[facility]/ZIP Co de Phone Number [facility] [address] [place] [address] * (ABNORMAL) LACTATE (11/24/2024 12:05 PM EDT) Lactate 3.5(H) 0.4 - 2.0 mmol/L 11/24/2024 12:45 PM EDT [facility] Blood Arterial blood specimen / Unknown Venipuncture / Unknown 11/24/2024 12:05 PM EDT 11/24/2024 12:17 PM EDT Jaida MITCHELL LAB BLOOD ORDERABLES F inal Result [facility] [address] [place] [address] * (ABNORMAL) CBC (11/24/2024 12:05 PM EDT) WBC 14.31(H) 4.00 - 10.80 K/uL 11/24/2024 12:25 PM EDT [facility] RBC 3.98 4.50 - 5.25 M/uL 11/24/2024 12:25 PM EDT [facility] HGB 11.9(L) 14.0 - 16.8 g/dL 11/24/2024 12:25 PM EDT [facility] HCT 34.8(L) 40.0 - 48.4 % 11/24/2024 12:25 PM EDT [facility] MCV 87.4 82.0 - 99.5 fL 11/24/2024 12:25 PM EDT [facility] MCH 29.9 27.0 - 34.0 pg 11/24/2024 12:25 PM EDT [facility] MCHC 34.2 32.0 - 36.0 g/dL 11/24/2024 12:25 PM EDT [facility] RDW 14.8 11.5 - 15.5 % 11/24/2024 12:25 PM EDT [facility] PLT 169 140 - 400 K/uL 11/24/2024 12:25 PM EDT [facility] MPV 11.7 6.6 - 11.1 fL 11/24/2024 12:25 PM EDT [facility] nRBCs 0 <=0 /100 WBCs 11/24/2024 12:25 PM EDT [facility] Blood Arterial blood specimen / Unknown Venipuncture / Unknown 11/24/2024 12:05 PM EDT 11/24/2024 12:17 PM EDT Jaida MITCHELL LAB BLOOD ORDERABLES F inal Result [facility]ORY [facility] [address] [place] [address] * VASC CHEHALIS ART DUP LTD LE (11/24/2024 8:28 AM EDT) Anatomical Region Laterality Modality Lower Extremity, Vascular Ultras ound Narrative 11/24/2024 1:33 PM EDT VASCULAR LAB RESULTS DATE OF EXAMINATION: 11/24/24 INDICATION: R/O PSEUDOANEURYSM FEMORAL ARTERY DUPLEX EXAMINATION S/P CATHETERIZATION Bedside: Immediately before proceeding with the vascular lab procedure reported below, the identity of the patient, the correct exam and the correct procedural site were verified. Jung scale, color flow and spectral doppler were performed for this examination. FINDINGS: Duplex ultrasound of the right groin reveals normal arterial flow in the external iliac artery, common femoral artery and proximal superficial femoral artery segments. Normal venous flow signals are seen in the common femoral vein and distal external iliac vein. No pseudoaneurysm or arteriovenous fistula was identified in the region of the catheterization site. A possible hematoma with no flow is seen at the entry site. CONCLUSION: Right groin duplex with no evidence of pseudoaneurysm or AV fistula. Possible hematoma noted in the region of recent catheterization with a patent branch adjacent to the hematoma. Betty Fraser MD RAD VASCULAR Final Result * TSH WITH FREE T4 IF INDICATED (11/24/2024 5:05 AM EDT) TSH 1.32 0.27 - 4.20 uIU/mL 11/24/2024 12:47 PM EDT [facility] Blood Venous blood specimen / Unknown Venipuncture / Unknown 11/24/2024 5:05 AM EDT 11/24/2024 5:14 AM EDT Esther Espinal MD LAB BLOOD ORDERABLES Final Resul t LAB[facility]ATORY [facility] [address] [place] [address] * LDL CHOLESTEROL (DIRECT MEASURE) (11/24/2024 5:05 AM EDT) Pathologist [facility] LDL Cholesterol (Direct Measure) 64 <=129 mg/dL 11/24/2024 5:56 AM EDT LABORATORY [facility] Comment: LDL Cholesterol Reference Ranges (mg/dL): <70 Target level for high risk ASCVD patient <100 Optimal for general population 100-129 Near optimal for general population 130-159 Borderline high 160-189 High >=190 Very high Blood Venous blood specimen / Unknown Venipuncture / Unknown 11/24/2024 5:05 AM EDT 11/24/2024 5:14 AM EDT Jaida MITCHELL LAB BLOOD ORDERABLES F inal Result Performing Organization Address [facility]/ZIP Co de Phone Number LABORATORY [facility] [address] [place] [address] * (ABNORMAL) LACTATE (11/24/2024 5:05 AM EDT) [facility] Lactate 3.8(H) 0.4 - 2.0 mmol/L 11/24/2024 5:41 AM EDT LAB[facility]ORY [facility] Blood Venous blood specimen / Unknown Venipuncture / Unknown 11/24/2024 5:05 AM EDT 11/24/2024 5:14 AM EDT Jaida ANGLINNP LAB BLOOD ORDERABLES F inal Result [facility]ATORY [facility] [address] [place] [address] * (ABNORMAL) CBC (11/24/2024 5:05 AM EDT) [facility] WBC 16.49(H) 4.00 - 10.80 K/uL 11/24/2024 5:26 AM EDT LAB[facility]ATORY [facility] RBC 4.43 4.50 - 5.25 M/uL 11/24/2024 5:26 AM EDT [facility] HGB 13.2(L) 14.0 - 16.8 g/dL 11/24/2024 5:26 AM EDT [facility] HCT 39.4(L) 40.0 - 48.4 % 11/24/2024 5:26 AM EDT [facility] MCV 88.9 82.0 - 99.5 fL 11/24/2024 5:26 AM EDT [facility] MCH 29.8 27.0 - 34.0 pg 11/24/2024 5:26 AM EDT [facility] MCHC 33.5 32.0 - 36.0 g/dL 11/24/2024 5:26 AM EDT [facility] RDW 14.5 11.5 - 15.5 % 11/24/2024 5:26 AM EDT [facility] PLT 177 140 - 400 K/uL 11/24/2024 5:26 AM EDT [facility] MPV 11.7 6.6 - 11.1 fL 11/24/2024 5:26 AM EDT [facility] nRBCs 0 <=0 /100 WBCs 11/24/2024 5:26 AM EDT [facility] Blood Venous blood specimen / Unknown Venipuncture / Unknown 11/24/2024 5:05 AM EDT 11/24/2024 5:14 AM EDT us Jaida MITCHELL LAB BLOOD ORDERABLES F inal Result [facility]ORY [facility] [address] [place] [address] * (ABNORMAL) BASIC METABOLIC PANEL (11/24/2024 5:05 AM EDT) BUN 16 6 - 20 mg/dL 11/24/2024 5:42 AM EDT [facility] CREATININE 1.1 0.6 - 1.2 mg/dL 11/24/2024 5:42 AM EDT [facility] EGFR 76 >=60 mL/min 11/24/2024 5:42 AM EDT [facility] Comment:eGFR is calculated b ased on the CKD-EPI 2020 equation. SODIUM 136 135 - 146 mmol/L 11/24/2024 5:42 AM EDT [facility] POTASSIUM 4.8 3.5 - 5.1 mmol/L 11/24/2024 5:42 AM EDT [facility] CHLORIDE 102 98 - 107 mmol/L 11/24/2024 5:42 AM EDT [facility] CO2 19(L) 22 - 32 mmol/L 11/24/2024 5:42 AM EDT [facility] ANION GAP 15 7 - 15 mmol/L 11/24/2024 5:42 AM EDT [facility] GLUCOSE 204(H) 70 - 120 mg/dL 11/24/2024 5:42 AM EDT [facility] CALCIUM 8.5 8.4 - 10.2 mg/dL 11/24/2024 5:42 AM EDT LABORATORY C Blood Venous blood specimen / Unknown Venipuncture / Unknown 11/24/2024 5:05 AM EDT 11/24/2024 5:14 AM EDT Jose Vasquez MD LAB BLOOD ORDERABLES F inal Result Performing Organization Address City/[facility]/ZIP Co de Phone Number LABORATORY [facility] [address] [place] [address] * MAGNESIUM (11/24/2024 5:05 AM EDT) Magnesium 2.3 1.5 - 2.6 mg/dL 11/24/2024 5:42 AM EDT LABORATORY C Blood Venous blood specimen / Unknown Venipuncture / Unknown 11/24/2024 5:05 AM EDT 11/24/2024 5:14 AM EDT Jose Vasquez MD LAB BLOOD ORDERABLES F inal Result Performing Organization Address City/[facility]/ZIP Co de Phone Number LAB[facility]ATORY [facility] [address] [place] [address] * (ABNORMAL) PHOSPHORUS (11/24/2024 5:05 AM EDT) Phosphorus 5.1(H) 2.5 - 4.8 mg/dL 11/24/2024 5:42 AM EDT [facility]ORY [facility] Blood Venous blood specimen / Unknown Venipuncture / Unknown 11/24/2024 5:05 AM EDT 11/24/2024 5:14 AM EDT Jose Vasquez MD LAB BLOOD ORDERABLES F inal Result Performing Organization Address [facility]/ZIP Co de Phone Number LABORATORY [facility] [address] [place] [address] * (ABNORMAL) HEMOGLOBIN A1C (11/24/2024 5:05 AM EDT) Hemoglobin A1C 6.6(H) 4.0 - 5.6 % 11/24/2024 5:31 AM EDT [facility] Comment:The use of HbA1c to monitor glycemic status is based on normal hemoglobin and HbA composition. This test should not be used in patients with abnormal hemoglobin that affects the half life of the red blood cell or the in vivo glycation rates. Estimated Average Glucose 143(H) <126 mg/dL 11/24/2024 5:31 AM EDT [facility] Blood Venous blood specimen / Unknown Venipuncture / Unknown 11/24/2024 5:05 AM EDT 11/24/2024 5:14 AM EDT Jaida MITCHELL LAB BLOOD ORDERABLES F inal Result Performing Organization Address [facility]/ZIP Co de Phone Number LABORATORY [facility] [address] [place] [address] * (ABNORMAL) LIPID PANEL WITH DIRECT LDL IF TG IS HIGH (11/24/2024 5:05 AM EDT) Triglycerides 266(H) <=174 mg/dL 11/24/2024 5:42 AM EDT LAB[facility] Comment: Triglyceride Reference Ranges (mg/dL): <150 Acceptable 150-174 Borderline high 175-499 High >=500 Very high Cholesterol 181 <200 mg/dL 11/24/2024 5:42 AM EDT LAB[facility]ORY [facility] Comment: Total Cholesterol Reference Ranges (mg/dL): <200 Desirable 200-239 Borderline high >=240 High HDL Cholesterol 52 >39 mg/dL 5:42 AM EDT LABORATORY [facility] Comment: HDL Cholesterol Reference Ranges (mg/dL): >=60 High (Desirable) <50 Low (Undesirable) For Females <40 Low (Undesirable) For Males Non-HDL Cholesterol 129 <=159 mg/dL 11/24/2024 5:42 AM EDT LAB[facility]ORY [facility] Comment: Non-HDL Cholesterol Reference Range (mg/dL): <100 Target level for high risk ASCVD patient <130 Optimal for general population 130-159 Near optimal for general population 160-189 Borderline High 190-219 High >=220 Very High Blood Venous blood specimen / Unknown Venipuncture / Unknown 11/24/2024 5:05 AM EDT 11/24/2024 5:14 AM EDT us Jaida MITCHELL LAB BLOOD ORDERABLES F inal Result LABORATORY [facility] [address] [place] [address] * CT HEAD/BRAIN WO CONTRAST (11/24/2024 4:18 AM EDT) Anatomical Region Laterality Modality Head Computed Tomogra phy 11/24/2024 7:09 AM EDT Impressions 11/24/2024 7:[address] HEAD/BRAIN WO CONTRAST: 1. Likely small acute left MCA territory infarct. No hemorrhagic transformation. 2. Consider MRI for further assessment. 3. Recommend short interval non-contrast CT head. Narrative 11/24/2024 7:[address] HEAD/BRAIN WO CONTRAST - 11/24/2024 HISTORY f/u thrombectomy with dual energy protocol for left MCA infarct COMPARISON CT HEAD_BRAIN WO CONTRAST, ACC: [id number], dated 2024-11-23 19:01:06 TECHNIQUE Computed tomography of the head was performed without contrast. Axial and reformatted coronal/sagittal images were provided. Images were reviewed in bone, subdural, soft tissue, brain, and stroke windows. FINDINGS Likely small acute left MCA territory infarct. No hemorrhagic transformation. Chronic left MCA infarcts with ex vacuo dilation. Recirculation contrast is noted. Left-sided brainstem wallerian degeneration. A punctate left M1 density is not visualized on subtraction images, suggesting this represents contrast. Atherosclerotic changes. Moderate global parenchymal volume loss with proportionate sulcal prominence. No hydrocephalus. Non-specific hypodensities in the bilateral periventricular and subcortical white matter favor chronic microvascular ischemic disease in this age group. Jung-white matter differentiation is otherwise preserved. Partially empty sella. No acute orbital finding. No evidence for acute sinusitis. Mastoid air cells are clear. Procedure Note Sander Mancuso MD - 11/24/[address] HEAD/BRAIN WO CONTRAST - 11/24/2024 HISTORY f/u thrombectomy with dual energy protocol for left MCA infarct COMPARISON CT HEAD_BRAIN WO CONTRAST, ACC: [id number], dated 2024-11-23 19:01:06 TECHNIQUE Computed tomography of the head was performed without contrast. Axial andreformatted coronal/sagittal images were provided. Images were reviewed inbone, subdural, soft tissue, brain, and stroke windows. FINDINGS Likely small acute left MCA territory infarct. No hemorrhagictransformation. Chronic left MCA infarcts with ex vacuo dilation.Recirculation contrast is noted. Left- sided brainstem walleriandegeneration. A punctate left M1 density is not visualized on subtractionimages, suggesting this represents contrast. Atherosclerotic changes. Moderate global parenchymal volume loss withproportionate sulcal prominence. No hydrocephalus. Non-specifichypodensities in the bilateral periventricular and subcortical whitematter favor chronic microvascular ischemic disease in this age group.Jung-white matter differentiation is otherwise preserved. Partially emptysella. No acute orbital finding. No evidence for acute sinusitis. Mastoid aircells are clear. IMPRESSION IMPRESSION CT HEAD/BRAIN WO CONTRAST: 1. Likely small acute left MCA territory infarct. No hemorrhagictransformation. 2. Consider MRI for further assessment. 3. Recommend short interval non-contrast CT head. Jaida MITCHELL RAD CT Final Result * EKG (11/24/2024 3:11 AM EDT) 11/24/2024 3:11 AM EDT Narrative Procedure Note oDnn Melendez MD - 11/24/2024 3:11 AM EDT REASON FOR STUDY: Stroke (HCC) CONCLUSIONS: Normal sinus rhythm Left axis deviation High QRS voltage may be normal variant or due to lve ( R in aVL ) Poor precordial R wave progression Abnormal ECG When compared with ECG of 23-Nov-2024 19:57, Leftward axis is now present Ventricular Rate: 93 Atrial Rate: 93 IA Interval: 178 QRS Duration: 106 QT/QTc: 376/467 ms P-R-T [place]: 45 : -37 : 76 degrees Jaida MITCHELL EKG Final Result [facility] CARDIOLOGY * XR ABDOMEN 1 VIEW (11/24/2024 2:33 AM EDT) Anatomical Region Laterality Modality Abdomen, Pelvis Computed Radiogr aphy 11/24/2024 3:24 AM EDT Impressions 11/24/2024 3:21 AM EDT IMPRESSION Nasogastric tube with side hole at the gastroesophageal junction. Further advancement recommended. Narrative 11/24/2024 3:21 AM EDT EXAM XR ABDOMEN 1 VIEW - 11/24/2024 2:33 am HISTORY Gastric Tube placement verification TECHNIQUE Single view of the abdomen COMPARISON 11/24/2024. FINDINGS Nasogastric tube with side hole at the gastroesophageal junction. Further advancement recommended. Nonobstructing bowel gas pattern. Procedure Note Sung Card MD - 11/24/2024 EXAM XR ABDOMEN 1 VIEW - 11/24/2024 2:33 am HISTORY Gastric Tube placement verification TECHNIQUE Single view of the abdomen COMPARISON 11/24/2024. FINDINGS Nasogastric tube with side hole at the gastroesophageal junction. Furtheradvancement recommended. Nonobstructing bowel gas pattern. IMPRESSION IMPRESSION Nasogastric tube with side hole at the gastroesophageal junction. Furtheradvancement recommended. Jaida MITCHELL RADIOLOGY (RAD GENERAL ) Final Result * XR CHEST 1 VIEW (11/24/2024 2:33 AM EDT) Anatomical Region Laterality Modality Chest Computed Radiogr aphy 11/24/2024 3:25 AM EDT Impressions 11/24/2024 3:23 AM EDT IMPRESSION Further advancement of the nasogastric tube is advised. Narrative 11/24/2024 3:23 AM EDT EXAM XR CHEST 1 VIEW-11/24/2024 2:33 am HISTORY ett COMPARISON No Comparison. TECHNIQUE Single view of the chest. FINDINGS Endotracheal tube in appropriate position. Nasogastric tube with its side hole at the distal esophagus. Further advancement recommended. Subsegmental atelectasis in the left lower lobe. There is no pleural effusion. The pulmonary vasculature and cardiomediastinal silhouette are within normal limits. No acute osseous finding. Procedure Note Sung Card MD - 11/24/2024 EXAM XR CHEST 1 VIEW-11/24/2024 2:33 am HISTORY ett COMPARISON No Comparison. TECHNIQUE Single view of the chest. FINDINGS Endotracheal tube in appropriate position. Nasogastric tube with its sidehole at the distal esophagus. Further advancement recommended.Subsegmental atelectasis in the left lower lobe. There is no pleuraleffusion. The pulmonary vasculature and cardiomediastinal silhouette arewithin normal limits. No acute osseous finding. IMPRESSION IMPRESSION Further advancement of the nasogastric tube is advised. Jaida MITCHELL RADIOLOGY (RAD GENERAL ) Final Result * MRSA SCREEN, PCR (11/24/2024 2:08 AM EDT) Pathologist [facility] MRSA PCR Result Negative Negative 6:30 AM EDT LABORATORY [facility] Comment:No Methicillin resis tant Staphylococcus aureus detected by PCR (amplified probe). Upper Respiratory Swab of internal nose / Unknown Non-blood Collection / Unknown 11/24/2024 2:08 AM EDT 11/24/2024 2:45 AM EDT Jaida MITCHELL LAB MICRO - GENERAL OR DERABLES Final Result LAB[facility]ATORY [facility] [address] [place] [address] * (ABNORMAL) BLOOD GAS, ARTERIAL (11/24/2024 1:51 AM EDT) Temperature 37.0 C 11/24/2024 2:12 AM EDT [facility] pH, Arterial 7.326(L) 7.350 - 7.450 units 11/24/2024 2:12 AM EDT LAB[facility] pCO2, Arterial 42.3 35.0 - 45.0 mmHg 11/24/2024 2:12 AM EDT LAB[facility] pO2, Arterial 91.6 75.0 - 100.0 mmHg 11/24/2024 2:12 AM EDT LAB[facility]ORY [facility] Base Excess, Arterial -3.9(L) -2.0 - 2.0 mmol/L 11/24/2024 2:12 AM EDT LAB[facility] HGB 14.0 14.0 - 16.8 g/dL 11/24/2024 2:12 AM EDT LAB[facility] Oxyhemoglobin, Arterial 94.8 94.0 - 99.0 % total Hgb 11/24/2024 2:12 AM EDT LAB[facility]ORY [facility] Carboxyhemoglob in, Whole Blood 1.4 <=1.5 % total Hgb 11/24/2024 2:12 AM EDT LAB[facility] Comment:Smokers: 0-9.0 % Methemoglobin, Whole Blood 0.8 <=1.5 % total Hgb 11/24/2024 2:12 AM EDT LAB[facility] Reduced Hemoglobin, Arterial 3.0 0.0 - 5.0 % total Hgb 11/24/2024 2:12 AM EDT LAB[facility] O2 Content, Arterial 18.8 15.0 - 24.0 %vol 11/24/2024 2:12 AM EDT LAB[facility] FiO2 Not Provided % 11/24/2024 2:12 AM EDT LAB[facility] O2 Flow, Arterial Not Provided L/min 11/24/2024 2:12 AM EDT LAB[facility]ORY [facility] Bicarbonate, Whole Blood 21.4(L) 23.0 - 31.0 mmol/L 11/24/2024 2:12 AM EDT LAB[facility]ORY [facility] Blood Arterial blood specimen / Unknown Venipuncture / Unknown 11/24/2024 1:51 AM EDT 11/24/2024 2:02 AM EDT Jaida MITCHELL LAB BLOOD ORDERABLES F inal Result Performing Organization Address [facility] de Phone Number LABORATORY [facility] [address] [place] [address] * TEG (THROMBOELASTOGRAPH), HEPARINASE (11/24/2024 1:51 AM EDT) Reaction Time 5.2 2.5 - 8.3 minutes 11/24/2024 3:25 AM EDT LAB[facility]ORY [facility] Kinetics Time 1.3 0.5 - 3.7 minutes 11/24/2024 3:25 AM EDT LAB[facility]ORY [facility] Alpha Angle 70.9 46.8 - 78.4 degrees 11/24/2024 3:25 AM EDT LAB[facility]ORY [facility] Maximum Amplitude 72.2 50.6 - 72.5 mm 11/24/2024 3:25 AM EDT LAB[facility]ORY [facility] Coagulation Index 2.6 -3.0 - 3.0 11/24/2024 3:25 AM EDT LAB[facility]ORY [facility] Percent Lysis 30 0.0 0.0 - 7.5 % 025 3:25 AM EDT LAB[facility]ORY [facility] Blood Arterial blood specimen / Unknown Venipuncture / Unknown 11/24/2024 1:51 AM EDT 11/24/2024 2:03 AM EDT Jaida MITCHELL LAB BLOOD ORDERABLES F inal Result Performing Organization Address [facility] de Phone Number LABORATORY [facility] [address] [place] [address] * TEG (THROMBOELASTOGRAPH) (11/24/2024 1:51 AM EDT) Reaction Time 4.8 2.5 - 8.3 minutes 11/24/2024 3:24 AM EDT LAB[facility]ATORY [facility] Kinetics Time 1.5 0.5 - 3.7 minutes 11/24/2024 3:24 AM EDT LAB[facility] Alpha Angle 68.1 46.8 - 78.4 degrees 11/24/2024 3:24 AM EDT LAB[facility]ORY [facility] Maximum Amplitude 69.2 50.6 - 72.5 mm 11/24/2024 3:24 AM EDT LAB[facility]ATORY [facility] Coagulation Index 2.1 -3.0 - 3.0 11/24/2024 3:24 AM EDT LAB[facility]ATORY [facility] Percent Lysis 30 0.0 0.0 - 7.5 % 025 3:24 AM EDT LAB[facility]ORY [facility] Blood Arterial blood specimen / Unknown Venipuncture / Unknown 11/24/2024 1:51 AM EDT 11/24/2024 2:03 AM EDT Jaida MITCHELL LAB BLOOD ORDERABLES F inal Result Performing Organization Address City/[facility]/ZIP Co de Phone Number LABORATORY [place] [address] [place] [address] * CALCIUM, IONIZED, WHOLE BLOOD (11/24/2024 1:51 AM EDT) Calcium, Ionized 1.22 1.13 - 1.32 mmol/L 11/24/2024 2:05 AM EDT LAB[facility]ATORY [facility] Blood Arterial blood specimen / Unknown Venipuncture / Unknown 11/24/2024 1:51 AM EDT 11/24/2024 2:02 AM EDT Jaida MITCHELL LAB BLOOD ORDERABLES F inal Result Performing Organization Address [facility] de Phone Number LABORATORY [place] [address] [place] [address] * (ABNORMAL) PHOSPHORUS (11/24/2024 1:51 AM EDT) Phosphorus 4.9(H) 2.5 - 4.8 mg/dL 11/24/2024 2:38 AM EDT LAB[facility]ORY [facility] Blood Arterial blood specimen / Unknown Venipuncture / Unknown 11/24/2024 1:51 AM EDT 11/24/2024 2:03 AM EDT Jaida ANGLINNP LAB BLOOD ORDERABLES F inal Result Performing Organization Address [facility] de Phone Number LABORATORY [facility] [address] [place] [address] * MAGNESIUM (11/24/2024 1:51 AM EDT) Pathologist [facility] Magnesium 1.7 1.5 - 2.6 mg/dL 11/24/2024 2:38 AM EDT LABORATORY C Blood Arterial blood specimen / Unknown Venipuncture / Unknown 11/24/2024 1:51 AM EDT 11/24/2024 2:03 AM EDT Jaida MITCHELL LAB BLOOD ORDERABLES F inal Result Performing Organization Address [facility] de Phone Number LABORATORY [facility] [address] [place] [address] * (ABNORMAL) LACTATE (11/24/2024 1:51 AM EDT) [facility] Lactate 2.3(H) 0.4 - 2.0 mmol/L 11/24/2024 2:35 AM EDT LABORATORY C Blood Arterial blood specimen / Unknown Venipuncture / Unknown 11/24/2024 1:51 AM EDT 11/24/2024 2:03 AM EDT Jaida MITCHELL LAB BLOOD ORDERABLES F inal Result Performing Organization Address [facility] de Phone Number LABORATORY [facility] [address] [place] [address] * PT INR (11/24/2024 1:51 AM EDT) Prothrombin Time 14.5 11.6 - 15.2 seconds 11/24/2024 2:14 AM EDT LAB[facility]ATORY [facility] INR 1.1 0.8 - 1.2 11/24/2024 2:14 AM EDT LAB[facility]ORY [facility] Blood Arterial blood specimen / Unknown Venipuncture / Unknown 11/24/2024 1:51 AM EDT 11/24/2024 2:03 AM EDT Narrative LABORATORY [facility] - 11/24/2024 2:14 AM EDT Warfarin Therapy INR: 2.0-3.0 conventional anticoagulation INR: 2.5-3.5 high intensity anticoagulation us Jaida MITCHELL LAB BLOOD ORDERABLES F inal Result [facility]ATORY [facility] [address] [place] [address] * (ABNORMAL) CBC (11/24/2024 1:51 AM EDT) WBC 17.22(H) 4.00 - 10.80 K/uL 11/24/2024 2:28 AM EDT LAB[facility]ATORY [facility] RBC 4.60 4.50 - 5.25 M/uL 11/24/2024 2:28 AM EDT LAB[facility]ORY [facility] HGB 13.6(L) 14.0 - 16.8 g/dL 11/24/2024 2:28 AM EDT LAB[facility]ORY [facility] HCT 40.6 40.0 - 48.4 % 11/24/2024 2:28 AM EDT LAB[facility]ORY [facility] MCV 88.3 82.0 - 99.5 fL 11/24/2024 2:28 AM EDT LAB[facility] MCH 29.6 27.0 - 34.0 pg 11/24/2024 2:28 AM EDT LAB[facility] MCHC 33.5 32.0 - 36.0 g/dL 11/24/2024 2:28 AM EDT LAB[facility] RDW 14.2 11.5 - 15.5 % 11/24/2024 2:28 AM EDT LAB[facility]ORY [facility] PLT 189 140 - 400 K/uL 11/24/2024 2:28 AM EDT LAB[facility] MPV 11.8 6.6 - 11.1 fL 11/24/2024 2:28 AM EDT LAB[facility]ORY [facility] nRBCs 0 <=0 /100 WBCs 11/24/2024 2:28 AM EDT LAB[facility] Blood Arterial blood specimen / Unknown Venipuncture / Unknown 11/24/2024 1:51 AM EDT 11/24/2024 2:03 AM EDT Jaida MITCHELL LAB BLOOD ORDERABLES F inal Result Performing Organization Address City/[facility]/ZIP Co de Phone Number LABORATORY [facility] [address] [place] [address] * (ABNORMAL) BASIC METABOLIC PANEL (11/24/2024 1:51 AM EDT) BUN 17 6 - 20 mg/dL 11/24/2024 2:38 AM EDT [facility] CREATININE 1.1 0.6 - 1.2 mg/dL 11/24/2024 2:38 AM EDT LAB[facility]ORY [facility] EGFR 80 >=60 mL/min 11/24/2024 2:38 AM EDT LAB[facility]ORY [facility] Comment:eGFR is calculated b ased on the CKD-EPI 2020 equation. SODIUM 134(L) 135 - 146 mmol/L 11/24/2024 2:38 AM EDT LAB[facility]ORY [facility] POTASSIUM 4.6 3.5 - 5.1 mmol/L 11/24/2024 2:38 AM EDT LAB[facility] CHLORIDE 102 98 - 107 mmol/L 11/24/2024 2:38 AM EDT LAB[facility] CO2 20(L) 22 - 32 mmol/L 11/24/2024 2:38 AM EDT LAB[facility] ANION GAP 12 7 - 15 mmol/L 11/24/2024 2:38 AM EDT LAB[facility] GLUCOSE 191(H) 70 - 120 mg/dL 11/24/2024 2:38 AM EDT LAB[facility]ORY [facility] CALCIUM 8.7 8.4 - 10.2 mg/dL 11/24/2024 2:38 AM EDT LABORATORY C Blood Arterial blood specimen / Unknown Venipuncture / Unknown 11/24/2024 1:51 AM EDT 11/24/2024 2:03 AM EDT Jaida MITCHELL LAB BLOOD ORDERABLES F inal Result Performing Organization Address City/[facility]/ZIP Co de Phone Number LABORATORY [facility] [address] [place] [address] * CTA ABD/PELVIS (11/24/2024 1:22 AM EDT) Anatomical Region Laterality Modality Abdomen, Pelvis, Body Computed T omography 11/24/2024 5:41 AM EDT Impressions 11/24/2024 6:11 AM EDT IMPRESSION 1. Hematoma within the right lower abdomen adjacent to the bladder without evidence of active extravasation. 2. Small hematoma adjacent to right femoral access site without evidence of active extravasation. 3. 1.5 cm focus of contrast adjacent to the right femoral artery consistent with a pseudoaneurysm. 4. No splenic hypodensity of the inferior spleen which may represent area of ischemia. I have personally reviewed this examination and agree with the resident/fellow physician's interpretation. Narrative 11/24/2024 6:11 AM EDT EXAM EXAM: CTA ABD/PELVIS DATE TIME: 11/24/2024 1:22 am HISTORY evaluate for hemorrhage in pelvis TECHNIQUE Oral Contrast: not administered. IV Contrast: With and without IV contrast. COMPARISON CT abdomen/pelvis 11/23/2024. FINDINGS LINES AND DEVICES: None. LOWER CHEST: Bibasilar consolidations. LIVER: Multiple hepatic hypodensities, likely representing cysts hepatic cysts. BILE DUCTS: Within normal limits. GALLBLADDER: Vicarious excretion of contrast within the gallbladder. PANCREAS: Within normal limits. SPLEEN: Hypodensity of the inferior spleen which may represent area of ischemia. ADRENALS: Within normal limits. KIDNEYS/URETERS: Bilateral renal scarring. Symmetric renal enhancement. No hydronephrosis. BOWEL: Not dilated. BLADDER: Distended with contrast from prior to interventional procedure. REPRODUCTIVE ORGANS: Within normal limits. LYMPH NODES: No lymphadenopathy. VESSELS: There is a 1.5 cm focus of contrast adjacent to the right femoral artery at site of vascular access. There is adjacent hematoma without evidence of contrast extravasation to suggest bleed. Atherosclerotic calcifications. PERITONEUM/RETROPERITONEUM: There is hematoma within the within the lower abdomen to the right of the bladder without evidence of contrast extravasation to suggest active bleed. ABDOMINAL WALL/SOFT TISSUES: Within normal limits. BONES: Osseous degenerative changes. Procedure Note Ned Etienne MD - 11/24/2024 EXAM EXAM: CTA ABD/PELVIS DATE TIME: 11/24/2024 1:22 am HISTORY evaluate for hemorrhage in pelvis TECHNIQUE Oral Contrast: not administered. IV Contrast: With and without IV contrast. COMPARISON CT abdomen/pelvis 11/23/2024. FINDINGS LINES AND DEVICES: None. LOWER CHEST: Bibasilar consolidations. LIVER: Multiple hepatic hypodensities, likely representing cysts hepaticcysts. BILE DUCTS: Within normal limits. GALLBLADDER: Vicarious excretion of contrast within the gallbladder. PANCREAS: Within normal limits. SPLEEN: Hypodensity of the inferior spleen which may represent area ofischemia. ADRENALS: Within normal limits. KIDNEYS/URETERS: Bilateral renal scarring. Symmetric renal enhancement.No hydronephrosis. BOWEL: Not dilated. BLADDER: Distended with contrast from prior to interventional procedure. REPRODUCTIVE ORGANS: Within normal limits. LYMPH NODES: No lymphadenopathy. VESSELS: There is a 1.5 cm focus of contrast adjacent to the right femoralartery at site of vascular access. There is adjacent hematoma withoutevidence of contrast extravasation to suggest bleed. Atheroscleroticcalcifications. PERITONEUM/RETROPERITONEUM: There is hematoma within the within the lowerabdomen to the right of the bladder without evidence of contrastextravasation to suggest active bleed. ABDOMINAL WALL/SOFT TISSUES: Within normal limits. BONES: Osseous degenerative changes. IMPRESSION IMPRESSION 1. Hematoma within the right lower abdomen adjacent to the bladder withoutevidence of active extravasation. 2. Small hematoma adjacent to right femoral access site without evidenceof active extravasation. 3. 1.5 cm focus of contrast adjacent to the right femoral arteryconsistent with a pseudoaneurysm. 4. No splenic hypodensity of the inferior spleen which may represent areaof ischemia. I have personally reviewed this examination and agree with the resident/fellow physician's interpretation. Artie Arredondo MD RAD CT Final Result * NEURO IR IMAGING (11/24/2024 1:15 AM EDT) Narrative Scheduling, Silent - 11/24/2024 1:16 AM EDT This procedure will not be read by a Radiologist. Please see operative note. us Peter Blas MD RAD SPECIAL PROCEDURES Final Res ult * (ABNORMAL) BLOOD GAS WITH CHEMISTRY, POINT OF CARE (11/24/2024 12:37 AM EDT) Draw Site Arterial Draw 11/24/2024 3:37 AM EDT [facility] pH i-STAT 7.296(L) 7.350 - 7.450 11/24/2024 3:37 AM EDT [facility] pCO2 i-STAT 39.9 35.0 - 45.0 mm Hg 11/24/2024 3:37 AM EDT [facility] pO2 i-STAT 170(H) 75 - 100 mm Hg 11/24/2024 3:37 AM EDT [facility] Base Excess i-STAT -7(L) -2 - 2 mmol/L 11/24/2024 3:37 AM EDT [facility] Bicarbonate, Whole Blood 19.5(L) 23.0 - 31.0 mmol/L 11/24/2024 3:37 AM EDT [facility] O2 Saturation i-STAT 99.0(H) 94.0 - 98.0 % 11/24/2024 3:37 AM EDT [facility] Glucose - POCT 176(H) 70 - 120 mg/dL 11/24/2024 3:37 AM EDT [facility] POTASSIUM - POCT 4.0 3.5 - 5.1 mmol/L 11/24/2024 3:37 AM EDT [facility] SODIUM - POCT 136 135 - 146 mmol/L 11/24/2024 3:37 AM EDT [facility] Calcium, ionized 1.10(L) 1.13 - 1.32 mmol/L 11/24/2024 3:37 AM EDT [facility] Hemoglobin i-STAT 11.9(L) 14.0 - 16.8 g/dL 11/24/2024 3:37 AM EDT [facility] Hematocrit i-STAT 35(L) 40 - 48 % 11/24/2024 3:37 AM EDT [facility] Arterial Draw 11/24/2024 12: 37 AM EDT 11/24/2024 3:37 AM EDT us Osorio Gilmore MD LAB POINT OF CARE TE ST DOCKED DEVICE UNSOLICITED RESULTS Final Result [facility] [address] [place] [address] * TRANSFUSE CRYOPRECIPITATE (11/24/2024 12:36 AM EDT) us Suman Wilson MD [facility] BANK TRANFUSE ORDERA BLES Final Result * TRANSFUSE CRYOPRECIPITATE (11/24/2024 12:32 AM EDT) us Suman Wilson MD [facility] BANK TRANFUSE ORDERA BLES Final Result * (ABNORMAL) EEG [facility] MONITORING (11/24/2024) Narrative Jada Bates TECH - 11/24/2024 [facility] MONITORING-NEUROPHYSIOLOGY COMMENTS: NAME: Tariq Sawant MACHINE: MEDS: HISTORY: Tariq Sawant is a 54 year old with a PMHx of previous left MCA stroke with residual right sided weakness HTN, dyslipidemia, and mitral valve replacement on eliquis who presented to [facility] from his facility for a syncopal episode. Per EMS, he fell off his couch 11/22/2024 and hit the left side of his head. For EMS and the ED he was aphasic, only able to answer yes/no questions. LKW was 11/22/2024, unsure of a time. He complained of a headache on arrival and has RUE weakness at baseline. CTH showed chronic left love injury but no prior comparison available. Trauma scans negative for traumatic injury. CTA head neck showed encephalomalacia and cortical atrophy of the L hemisphere consistent with prior stroke; there is no evidence of acute ischemia, hemorrhage, or mass effect. There is a possible subocclusive thrombus at the distal LM1 segment of unclear acuity in addition to abrupt cutoff at the left P1 segment. Distal contrast opacification of MCA vessels are potentially delayed but otherwise preserved. Lactate also elevated so there is a concern for seizure. Patient being transferred to [facility] for DSA with neurosurgery and LTM. Upon arrival to the NSICU, he remained intubated and sedated from his procedure. Intra op, he received 1 unit prbc and 2 units of cryo. DATE/TIME STARTED:11/24@536 DATE/TIME ENDED: 11/25@827 DAY: 1 DATE: 11/24-11/25 TIME: 4539-2652 PB/EVENTS: COMMENTS: This EEG is abnormal · Continuous slow, generalized lateralized left hemisphere REPORTING PHYS: RY BILLING: Hookup and 24hrs on 11/24, [place] us Jaida ANGLINNP MEDICINE Final Result * TRANSFUSE PACKED RED BLOOD CELLS (11/23/2024 11:48 PM EDT) us Suman Wilson MD BLD BANK TRANFUSE ORDERA BLES Final Result * (ABNORMAL) LACTATE,WHOLE BLOOD (11/23/2024 11:45 PM EDT) Lactate 2.3(H) 0.4 - 2.0 mmol/L 11/23/2024 11:59 PM EDT [facility] Blood Arterial blood specimen / Unknown 11/23/2024 11:45 PM EDT 11/23/2024 11:53 PM EDT us Suman Wilson MD LAB BLOOD ORDERABLES Fin al Result [facility] [address] [place] [address] * (ABNORMAL) WHOLE BLOOD PROFILE, ARTERIAL (11/23/2024 11:45 PM EDT) Temperature 37.0 C 11/24/2024 12:03 AM EDT [facility] pH, Arterial 7.330(L) 7.350 - 7.450 units 11/24/2024 12:03 AM EDT [facility] pCO2, Arterial 41.7 35.0 - 45.0 mmHg 11/24/2024 12:03 AM EDT [facility] pO2, Arterial 100.0 75.0 - 100.0 mmHg 11/24/2024 12:03 AM EDT [facility] Base Excess, Arterial -3.8(L) -2.0 - 2.0 mmol/L 11/24/2024 12:03 AM EDT [facility] HGB 13.0(L) 14.0 - 16.8 g/dL 11/24/2024 12:03 AM EDT [facility] Oxyhemoglobin, Arterial 95.5 94.0 - 99.0 % total Hgb 11/24/2024 12:03 AM EDT [facility] Carboxyhemoglob in, Whole Blood 1.4 <=1.5 % total Hgb 11/24/2024 12:03 AM EDT [facility] Comment:Smokers: 0-9.0 % Methemoglobin, Whole Blood 0.4 <=1.5 % total Hgb 11/24/2024 12:03 AM EDT [facility] Reduced Hemoglobin, Arterial 2.7 0.0 - 5.0 % total Hgb 11/24/2024 12:03 AM EDT [facility] O2 Content, Arterial 17.6 15.0 - 24.0 %vol 11/24/2024 12:03 AM EDT [facility] Potassium 3.6 3.5 - 5.1 mmol/L 11/24/2024 12:03 AM EDT [facility] Sodium 134(L) 135 - 146 mmol/L 11/24/2024 12:03 AM EDT [facility] Chloride 110(H) 98 - 107 mmol/L 11/24/2024 12:03 AM EDT [facility] Calcium, Ionized 0.97(L) 1.13 - 1.32 mmol/L 11/24/2024 12:03 AM EDT [facility] Anion Gap 2.1(L) 7.0 - 15.0 mmol/L 11/24/2024 12:03 AM EDT [facility] Glucose 210(H) 70 - 120 mg/dL 11/24/2024 12:03 AM EDT [facility] FiO2 Not Provided % 11/24/2024 12:03 AM EDT [facility] O2 Flow, Arterial Not Provided L/min 11/24/2024 12:03 AM EDT [facility] Bicarbonate, Whole Blood 21.4(L) 23.0 - 31.0 mmol/L 11/24/2024 12:03 AM EDT [facility] Blood Arterial blood specimen / Unknown 11/23/2024 11:45 PM EDT 11/23/2024 11:53 PM EDT us Suman Wilson MD LAB BLOOD ORDERABLES Fin al Result [facility] [address] [place] [address] * PREPARE CRYOPRECIPITATE (11/23/2024 11:15 PM EDT) Unit Product Code [id number] 11/25/2024 12:10 AM EDT [facility] BLOOD BANK Unit Number [id number] 11/25/2024 12:10 AM EDT [facility] BLOOD BANK Unit ABO A 11/25/2024 12:10 AM EDT [facility] BLOOD BANK Unit Rh POS 11/25/2024 12:10 AM EDT [facility] BLOOD BANK Unit Status PT 11/25/2024 12:10 AM EDT LABORATORY [facility] BLOOD BANK Unit Blood Type APOS 11/25/2024 12:10 AM EDT [facility] BLOOD BANK Unit Expiration [id number] 11/25/2024 12:10 AM EDT LABORATORY C BLOOD BANK Unit Barcode 6200 11/25/2024 12:10 AM EDT LABORATORY [facility]OD [facility] 11/23/2024 11:1 5 PM EDT Suman Wilson MD BLD BANK PRODUCT ORDERAB LES Edited Result - Final LABORATORY [facility] B[facility] [address] [place] [address] * PREPARE PLASMA (11/23/2024 11:15 PM EDT) Unit Product Code [id number] 11/24/2024 1:45 AM EDT LABORATORY [facility] BLOOD BANK Unit Number [id number] 11/24/2024 1:45 AM EDT [facility] BLOOD BANK Unit ABO A 11/24/2024 1:45 AM EDT [facility] BLOOD BANK Unit Rh POS 11/24/2024 1:45 AM EDT [facility] BLOOD BANK Unit Status RE 11/24/2024 1:45 AM EDT [facility] BLOOD BANK Unit Blood Type APOS 11/24/2024 1:45 AM EDT [facility] BLOOD BANK Unit Expiration [id number] 11/24/2024 1:45 AM EDT [facility] BLOOD BANK Unit Barcode 6200 11/24/2024 1:45 AM EDT LABORATORY [facility] 11/23/2024 11:1 5 PM EDT us Suman Wilson MD BLD BANK PRODUCT ORDERAB LES Edited Result - Final Performing Organization Address City/[facility]/ZIP Co de Phone Number LABORATORY C BLOOD BANK [address] [place] [address] * PREPARE CRYOPRECIPITATE (11/23/2024 11:10 PM EDT) Unit Product Code [id number] 11/25/2024 12:10 AM EDT LABORATORY C BLOOD BANK Unit Number [id number] 11/25/2024 12:10 AM EDT LABORATORY C BLOOD BANK Unit ABO A 11/25/2024 12:10 AM EDT LABORATORY [facility] Unit Rh POS 11/25/2024 12:10 AM EDT LABORATORY [facility] Unit Status PT 11/25/2024 12:10 AM EDT LABORATORY [facility] Unit Blood Type APOS 11/25/2024 12:10 AM EDT LABORATORY [facility] Unit Expiration [id number] 11/25/2024 12:10 AM EDT LABORATORY [facility] Unit Barcode 6200 11/25/2024 12:10 AM EDT LABORATORY [facility] 11/23/2024 11:1 0 PM EDT us Suman Wilson MD BLD BANK PRODUCT ORDERAB LES Edited Result - Final [facility] BLOOD BANK [address] [place] [address] * PREPARE PLASMA (11/23/2024 11:10 PM EDT) Unit Product Code [id number] 11/24/2024 1:45 AM EDT [facility] BLOOD BANK Unit Number [id number] 11/24/2024 1:45 AM EDT [facility] BLOOD BANK Unit ABO A 11/24/2024 1:45 AM EDT LABORATORY C BLOOD BANK Unit Rh POS 11/24/2024 1:45 AM EDT LABORATORY [facility] Unit Status RE 11/24/2024 1:45 AM EDT LABORATORY [facility] Unit Blood Type APOS 11/24/2024 1:45 AM EDT LABORATORY [facility] Unit Expiration [id number] 11/24/2024 1:45 AM EDT LABORATORY [facility] Unit Barcode 6200 11/24/2024 1:45 AM EDT LABORATORY [facility] 11/23/2024 11:1 0 PM EDT us Suman Wilson MD BLD BANK PRODUCT ORDERAB LES Edited Result - Final LABORATORY [facility] [address] [place] [address] * (ABNORMAL) WHOLE BLOOD PROFILE, ARTERIAL (11/23/2024 11:04 PM EDT) Temperature 37.0 C 11/23/2024 11:20 PM EDT [facility] pH, Arterial 7.323(L) 7.350 - 7.450 units 11/23/2024 11:20 PM EDT [facility] pCO2, Arterial 43.7 35.0 - 45.0 mmHg 11/23/2024 11:20 PM EDT [facility] pO2, Arterial 95.0 75.0 - 100.0 mmHg 11/23/2024 11:20 PM EDT [facility] Base Excess, Arterial -3.5(L) -2.0 - 2.0 mmol/L 11/23/2024 11:20 PM EDT [facility] HGB 14.6 14.0 - 16.8 g/dL 11/23/2024 11:20 PM EDT [facility] Oxyhemoglobin, Arterial 95.4 94.0 - 99.0 % total Hgb 11/23/2024 11:20 PM EDT [facility] Carboxyhemoglob in, Whole Blood 1.0 <=1.5 % total Hgb 11/23/2024 11:20 PM EDT [facility] Comment:Smokers: 0-9.0 % Methemoglobin, Whole Blood 0.6 <=1.5 % total Hgb 11/23/2024 11:20 PM EDT [facility] Reduced Hemoglobin, Arterial 3.0 0.0 - 5.0 % total Hgb 11/23/2024 11:20 PM EDT [facility] O2 Content, Arterial 19.7 15.0 - 24.0 %vol 11/23/2024 11:20 PM EDT [facility] Potassium 4.2 3.5 - 5.1 mmol/L 11/23/2024 11:20 PM EDT [facility] Sodium 135 135 - 146 mmol/L 11/23/2024 11:20 PM EDT [facility] Chloride 107 98 - 107 mmol/L 11/23/2024 11:20 PM EDT [facility] Calcium, Ionized 1.05(L) 1.13 - 1.32 mmol/L 11/23/2024 11:20 PM EDT [facility] Anion Gap 5.8(L) 7.0 - 15.0 mmol/L 11/23/2024 11:20 PM EDT [facility] Glucose 180(H) 70 - 120 mg/dL 11/23/2024 11:20 PM EDT [facility] FiO2 Not Provided % 11/23/2024 11:20 PM EDT [facility] O2 Flow, Arterial Not Provided L/min 11/23/2024 11:20 PM EDT [facility] Bicarbonate, Whole Blood 22.0(L) 23.0 - 31.0 mmol/L 11/23/2024 11:20 PM EDT LABORATORY C Blood Arterial blood specimen / Unknown 11/23/2024 11:04 PM EDT 11/23/2024 11:15 PM EDT us Suman Wilson MD LAB BLOOD ORDERABLES Fin al Result [facility]AT[facility] [address] [place] [address] * PREPARE PACKED RED BLOOD CELLS (11/23/2024 11:00 PM EDT) [facility] Unit Product Code [id number] 11/25/2024 12:10 AM EDT [facility] Unit Number [id number] 11/25/2024 12:10 AM EDT [facility] Unit ABO A 11/25/2024 12:10 AM EDT [facility] Unit Rh POS 11/25/2024 12:10 AM EDT [facility] Unit Crossmatch Compatible 11/23/2024 11:06 PM EDT [facility] Unit Status PT 11/25/2024 12:10 AM EDT [facility] Unit Blood Type APOS 11/25/2024 12:10 AM EDT [facility] Unit Expiration [id number] 11/25/2024 12:10 AM EDT [facility] Unit Barcode 6200 11/25/2024 12:10 AM EDT [facility] Unit Product Code [id number] 11/24/2024 1:45 AM EDT [facility] Unit Number [id number] 11/24/2024 1:45 AM EDT [facility] Unit ABO A 11/24/2024 1:45 AM EDT [facility] Unit Rh POS 11/24/2024 1:45 AM EDT [facility] Unit Crossmatch Compatible 11/23/2024 11:06 PM EDT [facility] Unit Status RE 11/24/2024 1:45 AM EDT [facility] Unit Blood Type APOS 11/24/2024 1:45 AM EDT [facility] Unit Expiration [id number] 11/24/2024 1:45 AM EDT [facility] Unit Barcode 6200 11/24/2024 1:45 AM EDT [facility] 11/23/2024 11:0 0 PM EDT us Suman Wilson MD BLD BANK PRODUCT ORDERAB LES Edited Result - Final [facility] [address] [place] [address] documented in this encounter Visit Diagnoses Diagnosis Acute ischemic left MCA stroke (HCC)- Primary Unspecified cerebral artery occlusion with cerebral infarction Ischemic stroke (HCC) Stroke (HCC) Unspecified cerebral artery occlusion with cerebral infarction Encounter for fitting and adjustment of other gastrointestinal appliance and device Encounter for fitting and adjustment of non-vascular catheter Presence of other specified devices Chest pain Chest pain, unspecified Encounter for adjustment and management of vascular access device Retroperitoneal hematoma Hemorrhage, unspecified Nontraumatic hematoma of soft tissue Abnormal findings on diagnostic imaging of other abdominal regions, including retroperitoneum Atelectasis Pulmonary collapse Hypoxemia Valvular heart disease Endocarditis, valve unspecified, unspecified cause Complication of other artery following a procedure, not elsewhere classified, initial encounter [T81.238A] 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 artery Cerebral infarction due to thrombosis of left middle cerebral artery (HCC) [I63.312] Cerebral thrombosis with cerebral infarction Essential (primary) hypertension [I10] Unspecified essential hypertension Hemiplegia and hemiparesis following cerebral infarction affecting right dominant side (HCC) [I69.351] Aphasia [R47.01] Aphasia Nihss score 20 [R29.720] Personal history of nicotine dependence [Z87.891] Personal history of tobacco use, presenting hazards to health 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] Heart valve replaced by other means 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 [Z79.01] Long-term (current) use of anticoagulants Fever, unspecified S/P AVR (aortic valve replacement) Heart valve replaced by other means Aneurysm of ascending aorta without rupture (HCC) Acute ischemic left MCA stroke (HCC) Unspecified cerebral artery occlusion with cerebral infarction History of ischemic left MCA stroke Transient ischemic attack (TIA), and cerebral infarction without residual deficits Expressive aphasia Aphasia On continuous oral anticoagulation Pseudoaneurysm following procedure (HCC) Vascular complications of other vessels Gait abnormality Abnormality of gait Impaired mobility and ADLs Mechanical problems with limbs Respiratory failure without hypercapnia (HCC) Acute respiratory failure S/P AVR (aortic valve replacement) Heart valve replaced by other means Prosthetic heart valve clot Other complications due to heart valve prosthesis documented in this encounter Administered Medications Inactive Administered Medications - up to 3 most recent administrations Medication Order MAR Action Action Date Dose Rate Site Acetaminophen (Ofirmev) inj 1,000 mg 1,000 mg, Intravenous, ONCE, 1 dose, On Antonina 11/24/24 at 1330, Administer over 15 Minutes, Administer undiluted over 15 minutes! NOTE: Maximum of 4000 mg per 24 hours of acetaminophen from all acetaminophen containing products., Indication: Patient is strictly NPO New Bag 11/24/2024 2:38 PM EDT 1,000 mg 400 mL/hr Acetaminophen (Tylenol) tab 650 mg 650 mg, Oral, Q6H PRN Pain, Mild, Fever >38C(100.5F), Starting on Thu11/24/24 at 1930, Until Thu12/02/24 at 2148, Maximum of 4 grams (4000 mg) per day. Given 11/29/2024 6:15 PM EDT 650 mg Given 11/26/2024 9:40 AM EDT 650 mg Given 11/25/2024 9:17 AM EDT 650 mg amLODIPine (Norvasc) tab 10 mg 10 mg, Oral, Daily(AM), First dose on Thu11/25/24 at 0900, Until Discontinued Given 11/28/2024 8:09 AM EDT 10 mg Given 11/27/2024 9:42 AM EDT 10 mg Given 11/26/2024 7:53 AM EDT 10 mg amLODIPine (Norvasc) tab 5 mg 5 mg, Oral, Daily(AM), First dose (after last modification) on Thu11/29/24 at 0900, Until Discontinued Given 12/02/2024 8:06 AM EDT 5 mg Given 12/01/2024 8:41 AM EDT 5 mg Given 11/30/2024 9:52 AM EDT 5 mg atorvaSTATin (Lipitor) tab 40 mg 40 mg, Oral Gastric Tube, Q1700, First dose (after last modification) on Thu11/24/24 at 1700, Until Discontinued Given 11/24/2024 6:02 PM EDT 40 mg atorvaSTATin (Lipitor) tab 40 mg 40 mg, Oral, Q1700, First dose (after last modification) on Thu11/25/24 at 1700, Until Discontinued Given 12/01/2024 5:09 PM EDT 40 mg Given 11/30/2024 5:13 PM EDT 40 mg Given 11/29/2024 5:14 PM EDT 40 mg benazepril (Lotensin) tab 20 mg 20 mg, Oral, Daily(AM), First dose on Thu11/29/24 at 0900, Until Discontinued Given 11/29/2024 10:06 AM EDT 20 mg calcium GLUConate 1000 mg in 50ml ivpb 1,000 mg, IV Piggyback, ONCE, 1 dose, On 11/26/24 at 0845 New Bag 11/26/2024 9:36 AM EDT 1,000 mg 10 0 mL/hr chlorHEXIDINE (Periogard) 0.12 % oral rinse 15 mL 15 mL, Oral mucosal membrane, BID (0800,1999), First dose on Thu11/24/24 at 0800, Until Discontinued, Include oral/gum/tooth brushing with medication. Use prepackaged oral kit suction tooth brush if available. Given 11/26/2024 8:01 AM EDT 15 mL Given 11/25/2024 7:46 PM EDT 15 mL Given 11/25/2024 8:59 AM EDT 15 mL chlorhexidine gluconate cloth 2 % pad External, [id number], First dose on Antonina 11/24/24 at 1000, Until Discontinued, Applied to appropriate patients per animal physiologist's recommendations FOLLOWING daily care., Post-op Given 11/26/2024 8: 01 AM EDT 1 Pad Given 11/25/2024 10:00 AM EDT Given 11/24/2024 9:55 AM EDT 1 Pad dextrose 50% inj 25 mL 25 mL, IV Push, PRN Hypoglycemia, Other, For blood glucose 54 - 69 mg/dL or 70 - 100 mg/dL with symptoms AND patient is unresponsive, NPO, OR unable to swallow, Starting on Antonina 11/24/24 at 1057, Until Thu12/02/24 at 2148, Administer IV. Recheck blood glucose after 15 minutes. Notify provider. dextrose 50% inj 50 mL 50 mL, IV Push, PRN Hypoglycemia, Other, For blood glucose below 54 mg/dL AND patient unresponsive, NPO, OR unable to swallow, Starting on Antonina 11/24/24 at 1057, Until Thu12/02/24 at 2148, Administer IV. Recheck blood glucose in 15 minutes. Notify provider. Docusate Sodium (Colace) cap 100 mg 100 mg, Oral, BID (.AM/PM), First dose on Thu11/25/24 at 0945, Until Discontinued, For oral administration ONLY, if route of administration is other than oral and alternative product must be ordered. Given 11/25/2024 9:38 PM EDT 100 mg Given 11/25/2024 9:17 AM EDT 100 mg Docusate Sodium (Colace) oral liquid 100 mg 100 mg, Oral Gastric Tube, BID (.AM/PM), First dose on Antonina 11/24/24 at 0900, Until Discontinued Given 11/24/2024 8:18 PM EDT 100 mg Famotidine (Pepcid) inj 20 mg 20 mg, Intravenous, Q12H, First dose on Antonina 11/24/24 at 0145, Until Discontinued, Give IV push over 2 minutes. Given 11/24/2024 9:54 AM EDT 20 mg Given 11/24/2024 2:16 AM EDT 20 mg fentaNYL (PF) inj 50 mcg 50 mcg, IV Push, ONCE, On Antonina 11/24/24 at 0400, For 1 dose, When given IV Push its recommended that the dose be given over 3 to 5 minutes. Given 11/24/2024 3:26 AM EDT 50 mcg fentaNYL (PF) inj 50 mcg 50 mcg, IV Push, ONCE, On Antonina 11/24/24 at 0445, For 1 dose, When given IV Push its recommended that the dose be given over 3 to 5 minutes. Given 11/24/2024 4:15 AM EDT 50 mcg glucagon (Glucagen) inj 1 mg 1 mg, Intramuscular, PRN Hypoglycemia, Other, If patient is unresponsive, or NPO and has no IV access, Starting on Antonina 11/24/24 at 1057, Until Thu12/02/24 at 2148, NPO and no IV access with either 1) blood glucose less than 100 mg/dL and symptomatic OR 2) blood glucose less than 70 mg/dL and asymptomatic Glucose (Glutose 15) 40 % gel 15 g of glucose 15 g of glucose, Oral, PRN Hypoglycemia (low sugar), Other, For blood glucose 54 - 69 mg/dL or 70 - 100 mg/dL with symptoms AND patient alert WITH difficulty chewing/swallowing, Starting on Antonina 11/24/24 at 1057, Until Thu12/02/24 at 2148, Administer gel. Recheck blood glucose after 15 minutes. Notify provider. 37.5 gram tube = 15 grams glucose = 1 each Glucose (Glutose 15) 40 % gel 30 g of glucose 30 g of glucose, Oral, PRN Hypoglycemia (low sugar), Other, For blood glucose below 54 mg/dL AND patient alert WITH difficulty chewing/swallowing, Starting on Antonina 11/24/24 at 1057, Until Thu12/02/24 at 2147, Administer gel. Recheck blood glucose after 15 minutes. Notify provider. 37.5 gram tube = 15 grams glucose = 1 each glucose chew tab 16 g 16 g, Oral, PRN Hypoglycemia, Other, For blood glucose 54 - 69 mg/dL or 70 - 100 mg/dL with symptoms and patient alert without difficulty chewing/swallowing., Starting on Antonina 11/24/24 at 1057, Until Thu12/02/24 at 2147 hEParin 1000 UNIT/ML inj 1,400 Units 1,400 Units (rounded from 1,378.5 Units = 15 Units/kg 91.9 kg Adjusted weight), IV Push, PRN Other, If most recent Heparin Assay result is between 0.21 and 0.29 units/mL, Starting on 11/26/24 at 1208, Until Thu12/02/24 at 2147, Repeat Heparin Assay 6 hours after bolus is administered. Given 11/29/2024 6:11 AM EDT 1,400 Units Given 11/27/2024 3:50 AM EDT 1,400 Units hEParin 1000 UNIT/ML inj 2,800 Units 2,800 Units (rounded from 2,757 Units = 30 Units/kg 91.9 kg Adjusted weight), IV Push, PRN Other, If most recent Heparin Assay result is less than or equal to 0.2 units/mL, Starting on 11/26/24 at 1208, Until Thu12/02/24 at 2147, Repeat Heparin Assay 6 hours after bolus is administered. Given 11/30/2024 9:57 PM EDT 2,800 Units Given 11/28/2024 7:25 AM EDT 2,800 Units Given 11/26/2024 8:24 PM EDT 2,800 Units hEParin 25,000 units in 250 mL (Xa-Cardiac) infusion Intravenous, at 0-27.57 mL/hr, Start heparin as soon as baseline labs are drawn. Please select this medication from the infusion pump library! Concentration: 100 units/mL Expires 96 hours after spiking on (date) at (hour) , TITRATE, Starting on 11/26/24 at 1245, Until Thu12/02/24 at 2148 Rate Verify 12/02/2024 3:23 PM EDT 21 Units/kg/hr 19.29 mL/hr Rate Verify 12/02/2024 11:59 AM EDT 21 Units/kg/hr 19.29 m L/hr Nurse Change 12/02/2024 7:22 AM EDT 21 Units/kg/hr 19.3 mL /hr HYDROmorphone (Dilaudid) inj 0.2 mg 0.2 mg, IV Push, ONCE, On Thu11/25/24 at 1630, For 1 dose Given 11/25/2024 4:30 PM EDT 0.2 mg insulin aspart (NovoLOG) inj Subcutaneous, Q6H, First dose on Antonina 11/24/24 at 1200, Until Discontinued, MEDIUM DOSE (Usual starting dose): Sliding Scale Correctional insulin may be given if the patient is NPO. Dose based on standard build from Insulin Calculator. Do not modify insulin doses in administration instructions!, Glucose less than 70 instructions: Obtain STAT lab blood glucose and call covering provider., Glucose 80-150 (units): 0, Glucose 151-200 (units): 2, Glucose 201-250 (units): 4, Glucose 251-300 (units): 6, Glucose greater than 300 (units): 8, Glucose greater than 300 instructions: Give suggested insulin dose and call covering provider. Given 11/24/2024 6:02 PM EDT 4 Units Arm Right Upper Given 11/24/2024 12:20 PM EDT 2 Units A rm Left Upper insulin aspart (NovoLOG) inj Subcutaneous, W/MEALS AND HS, First dose (after last modification) on Thu11/25/24 at 1200, Until Discontinued, MEDIUM DOSE (Usual starting dose): Sliding Scale Correctional insulin may be given if the patient is NPO. Dose based on standard build from Insulin Calculator. Do not modify insulin doses in administration instructions!, Glucose less than 70 instructions: Obtain STAT lab blood glucose and call covering provider., Glucose 80-150 (units): 0, Glucose 151-200 (units): 2, Glucose 201-250 (units): 4, Glucose 251-300 (units): 6, Glucose greater than 300 (units): 8, Glucose greater than 300 instructions: Give suggested insulin dose and call covering provider. Given 12/02/2024 2:47 PM EDT 2 Units Arm Right Upper Given 11/30/2024 9:54 PM EDT 2 Units Ab domen Left Lower Given 11/30/2024 5:13 PM EDT 2 Units Ar m Right Upper Iopamidol (Isovue 370) inj 100 mL 100 mL, Intravenous, ONCE, On Thu12/01/24 at 1145, For 1 dose, Radiology Medication Routing (Non-IR) Given 12/01/2024 11:45 AM EDT 90 mL Iopamidol (Isovue 370) inj 80 mL 80 mL, Intravenous, ONCE, On Thu11/24/24 at 0200, For 1 dose, Radiology Medication Routing (Non-IR) Given 11/24/2024 2:00 AM EDT 80 mL Isolyte-S pH 7.4 infusion Intravenous, at 75 mL/hr, Plasma-LYTE 148, isolyte-S, and isolyte-S pH 7.4 are considered equivalent - including for MAR barcode scanning., CONTINUOUS, Starting on Thu11/24/24 at 0630, Until Thu11/24/24 at 0721 New Bag 11/24/2024 6:12 AM EDT 75 mL /hr Isolyte-S pH 7.4 infusion Intravenous, at 75 mL/hr, Plasma-LYTE 148, isolyte-S, and isolyte-S pH 7.4 are considered equivalent - including for MAR barcode scanning., CONTINUOUS, Starting on Thu11/24/24 at 0800, Until Thu11/25/24 at 0652 Rate Verify 11/25/2024 5:00 AM EDT 75 mL /hr Rate Verify 11/25/2024 4:00 AM EDT 75 mL/hr Rate Verify 11/25/2024 3:00 AM EDT 75 mL/hr Isolyte-S pH 7.4 infusion Intravenous, at 100 mL/hr, Plasma-LYTE 148, isolyte-S, and isolyte-S pH 7.4 are considered equivalent - including for MAR barcode scanning., CONTINUOUS, Starting on Thu11/30/24 at 1900, Until Thu12/01/24 at 0459 New Bag 11/30/2024 6:43 PM EDT 100 mL /hr labetalol (Trandate) inj 10 mg 10 mg, Intravenous, Q1H PRN Hypertension, to maintain sbp less than 160; don't give if HR less than 60, Starting on Thu11/25/24 at 0100, Until Thu11/26/24 at 1615 Given 11/25/2024 1:03 AM EDT 10 mg loperamide (Imodium) cap 2 mg 2 mg, Oral, Q4H PRN Diarrhea, Starting on Thu12/01/24 at 2111, Until Thu12/02/24 at 2148, Maximum of 16 mg per day recommended Given 12/01/2024 9:37 PM EDT 2 mg magnesium sulfate 1 g in d5w 100mL LOCKED DOSE 1 g, IV Piggyback, Q1H, 2 doses, First dose on Thu11/24/24 at 0400, Last dose on Thu11/24/24 at 0500, Administer over 60 Minutes, Total dose is 2g Rate Verify 11/24/2024 5:00 AM EDT 1 g/hr 100 mL/hr New Bag 11/24/2024 4:45 AM EDT 1 g 100 mL/hr Rate Verify 11/24/2024 4:00 AM EDT 1 g/hr 100 mL/hr magnesium sulfate in SWFI iv piggyback 4,000 mg 4,000 mg, IV Piggyback, ONCE, 1 dose, On 11/26/24 at 0815, Administer over 4 Hours New Bag 11/26/2024 7:57 AM EDT 4,000 mg 25 mL/h r metoprolol succinate XL (toPROL XL) tab 50 mg 50 mg, Oral, Daily(AM), First dose on Thu12/02/24 at 0900, Until Discontinued, Hold for HR less than 60 or SBP below 100 and notify service if dose is held This med should NOT be Crushed or Chewed. Given 12/02/2024 8:06 AM EDT 50 mg Metoprolol Tartrate (Lopressor) tab 100 mg 100 mg, Oral, Q12H, First dose (after last modification) on Thu11/30/24 at 2100, Last dose on Thu12/01/24 at 0900, For 2 doses, Hold for HR less than 60 or SBP below 100 and notify service if dose is held Given 12/01/2024 8:41 AM EDT 100 mg Given 11/30/2024 9:53 PM EDT 100 mg Metoprolol Tartrate (Lopressor) tab 12.5 mg 12.5 mg, Oral, Q12H, First dose (after last modification) on Thu11/29/24 at 0900, Last dose on Thu12/01/24 at 2100, For 3 days, Hold for HR less than 60 or SBP below 100 and notify service if dose is held Given 11/30/2024 9:52 AM EDT 12.5 mg Given 11/29/2024 10:05 PM EDT 12.5 mg Given 11/29/2024 10:06 AM EDT 12.5 mg Metoprolol Tartrate (Lopressor) tab 25 mg 25 mg, Oral, Q12H, First dose on Thu11/26/24 at 0900, Until Discontinued, Hold for HR less than 60 or SBP below 100 and notify service if dose is held Given 11/28/2024 9:11 PM EDT 25 mg Given 11/28/2024 8:09 AM EDT 25 mg Given 11/27/2024 10:20 PM EDT 25 mg NSS 0.9% 500 mL bolus infusion Intravenous, at 500 mL/hr Administer over 60 Minutes, Administer entire volume within 60 minutes or less., ONCE, 1 dose, On Thu11/24/24 at 0315 Rate Verify 11/24/2024 6:00 AM EDT 10 mL/hr Rate Verify 11/24/2024 5:00 AM EDT 10 mL/hr Rate Change 11/24/2024 4:43 AM EDT 10 mL/hr ondansetron (Zofran) inj 4 mg 4 mg, IV Push, Q6H PRN Nausea, Starting on Thu12/01/24 at 0421, Until Thu12/02/24 at 2148, For 2 doses Given 12/01/2024 6:19 AM EDT 4 mg Oral Hygiene: Mouth Swab with dentifrice Oral, Q4H LIMITED (00;04;12;16), First dose on Thu11/24/24 at 0400, Until Discontinued, To be used with 1.5% hydrogen peroxide solution or 0.05% cetylpyridium chloride oral rinse Given 11/26/2024 12:51 PM EDT 1 Kit Given 11/26/2024 4:00 AM EDT Given 11/26/2024 12:00 AM EDT oxygen GAS Inhalation, OXYGEN, First dose on Antonina 11/24/24 at 0145, Until Discontinued, Device/Managed by: NIV or Ventilator Device, Goal SPO2 (%): 94 or greater, Notify Provider: For sudden DECREASE in resting SPO2 to less than 85% and when escalating delivery device., Initial FiO2 (%): 100, Titration Interval: Q2 minutes and as needed., Wean patient off Oxygen when the oxygen saturation is greater than or equal to 93% Oxygen On 11/26/2024 12:00 AM EDT Oxygen On 11/25/2024 4:00 PM EDT 5 L/min(Oxygen) Oxygen On 11/25/2024 8:00 AM EDT 2 L/min(Oxygen) Polyethylene Glycol 3350 (Miralax) oral powder 17 g 17 g (1 Packet), Oral, Daily(AM), First dose on 11/26/24 at 0900, Until Discontinued, Mix in 8 oz of water, juice, soda, coffee, or tea. Given 12/01/2024 8:44 AM EDT 17 g Given 11/29/2024 10:06 AM EDT 17 g Given 11/27/2024 9:45 AM EDT 17 g potassium and sodium phosphate (Phos-Nak) oral powder 1 Packet 1 Packet, Oral, ONCE, On Thu11/25/24 at 0700, For 1 dose, Mix 1 packet in 2.5 ounces (75 mL) of water, stir well and administer promptly. 1 packet contains Phosphorus 250 mg (~8 mMoles) + potassium 280 mg (~7.125 mEq) + sodium 160mg (~7.125 mEq) Given 11/25/2024 6:57 AM EDT 1 Packet potassium chloride ER tab 40 mEq 40 mEq, Oral, ONCE, On 11/26/24 at 0815, For 1 dose, This med should NOT be Crushed or Chewed Given 11/26/2024 7:53 AM EDT 40 mEq Propofol 10 mg/mL (1%) infusion Order Mode: Standard Titration, Starting Rate (mcg/kg/min): 10, Infusion Titration Adjustments: Increase or decrease by up to 10 mcg/kg/min no more frequently than every 5 minutes to maintain specified goal RASS, Maximum Dose: 50 mcg/kg/min for nurse titration. Dose titrations 51-80 mcg/kg/min require provider order., Notes to Nursing: Reorient the patient, assess and treat pain separately. Abort acute agitation by seeking provider assistance., 0-50 mcg/kg/min 121.8 kg (0-36.54 mL/hr), Shake Well Expires 12 hours after spiking on (date) at (hour) , TITRATE, Starting on Antonina 11/24/24 at 0145, Until Antonina 11/24/24 at 1058, Intravenous Rate Verify 11/24/2024 10:00 AM EDT 10 mcg/kg/min 7.3 mL/hr Rate Verify 11/24/2024 9:00 AM EDT 10 mcg/kg/min 7.3 mL/hr Rate Verify 11/24/2024 8:00 AM EDT 10 mcg/kg/min 7.3 mL/hr senna (Senokot) 1 Tablet 1 Tablet, Oral, Daily(AM), First dose on Thu11/25/24 at 0945, Until Discontinued Given 11/25/2024 9:17 AM EDT 1 Ta blet senna-docusate (Senokot-S) 2 Tablet 2 Tablet, Oral, BID (.AM/PM), First dose on Thu11/26/24 at 0900, Until Discontinued Given 12/01/2024 8:41 A M EDT 2 Tablets Given 11/30/2024 9:53 PM EDT 2 Tablets Given 11/30/2024 9:52 AM EDT 2 Tablets sodium chloride 0.9 % flush central line 10 mL 10 mL, IV Push, Q8H, First dose on Antonina 11/24/24 at 0600, Until Discontinued, TO UNUSED PORTS Do not flush if lock, PICC, or central line not in place; IV infusing or unable to flush. Given 11/29/2024 10:00 PM EDT 10 mL Given 11/29/2024 6:12 AM EDT 10 mL Given 11/28/2024 9:11 PM EDT 10 mL tamsulosin (Flomax) cap 0.4 mg 0.4 mg, Oral, HS, First dose on Thu11/25/24 at 1615, Until Discontinued, Administer 30 min after meal. This med should NOT be Crushed or Chewed or opened! ORAL administration only!! Given 12/01/2024 9:38 PM EDT 0.4 mg Given 11/30/2024 9:53 PM EDT 0.4 mg Given 11/29/2024 10:00 PM EDT 0.4 mg venlafaxine XR (Effexor XR) cap 75 mg 75 mg, Oral, Daily(AM), First dose on Thu11/25/24 at 1000, Until Discontinued, This med should NOT be Crushed or Chewed but may be opened and contents administered in a spoonful of applesauce or pudding without chewing or crushing. Given 12/02/2024 8:07 AM EDT 75 mg Given 12/01/2024 8:41 AM EDT 75 mg Given 11/30/2024 9:52 AM EDT 75 mg warfarin check daily dose (PHARMACIST MANAGED) [id number], First dose on Thu11/29/24 at 1500, Until Discontinued, Routine, Contact the pharmacy if there is not a warfarin dose entered by 1500 and document with whom it was discussed. Warfarin Sodium (Coumadin) tab 10 mg 10 mg, Oral, QPM-1999, First dose on Thu12/01/24 at 1999, Last dose on Thu12/01/24 at 1999, For 1 day, WASTE INFO: Return packaging and waste medication in zip lock bag to pharmacy - [facility] container. Given 12/01/2024 9:37 PM EDT 10 mg Warfarin Sodium (Coumadin) tab 10 mg 10 mg, Oral, QPM-1999, First dose on Thu12/02/24 at 1999, Last dose on Thu12/02/24 at 1999, For 1 day, WASTE INFO: Return packaging and waste medication in zip lock bag to pharmacy - [facility] container. Warfarin Sodium (Coumadin) tab 5 mg 5 mg, Oral, QPM-1999, First dose on Thu11/29/24 at 1999, Last dose on Thu11/29/24 at 1999, For 1 day, WASTE INFO: Return packaging and waste medication in zip lock bag to pharmacy - [facility] container. Given 11/29/2024 10:00 PM EDT 5 mg Warfarin Sodium (Coumadin) tab 5 mg 5 mg, Oral, QPM-1999, First dose on Thu11/30/24 at 1999, Last dose on Thu11/30/24 at 1999, For 1 day, WASTE INFO: Return packaging and waste medication in zip lock bag to pharmacy - [facility] container. Given 11/30/2024 9:56 PM EDT 5 mg documented in this encounter Active and Recently Administered Medications Times are shown in EDT. Scheduled Medication Order 11/30/2024 12/01/2024 12/02/2024 amLODIPine (Norvasc) tab 5 mg 5 mg, Oral, Daily(AM), First dose (after last modification) on Thu11/29/24 at 0900, Until Discontinued 0952 (Given - Provider: Laury Cotto RN) 0841 (Given - Provider: Wendy Dooley RN) 0806 (Given - Provider: Sabra Mancuso RN) atorvaSTATin (Lipitor) tab 40 mg 40 mg, Oral, Q1700, First dose (after last modification) on Thu11/25/24 at 1700, Until Discontinued 1713 (Given - Provider: Laury Cotto RN) 1709 (Given - Provider: Wendy Dooley RN) 1700 (Due) insulin aspart (NovoLOG) inj Subcutaneous, W/MEALS AND HS, First dose (after last modification) on Thu11/25/24 at 1200, Until Discontinued, MEDIUM DOSE (Usual starting dose): Sliding Scale Correctional insulin may be given if the patient is NPO. Dose based on standard build from Insulin Calculator. Do not modify insulin doses in administration instructions!, Glucose less than 70 instructions: Obtain STAT lab blood glucose and call covering provider., Glucose 80-150 (units): 0, Glucose 151-200 (units): 2, Glucose 201-250 (units): 4, Glucose 251-300 (units): 6, Glucose greater than 300 (units): 8, Glucose greater than 300 instructions: Give suggested insulin dose and call covering provider. 0952 (Given - Provider: Laury Cotto RN)1200 (No Insulin - Provider: Laury Cotto RN - Reason: Parameter(s) Not Met)1713 (Given - Provider: Laury Cotto RN)2154 (Given - Provider: Indy Livingston RN) 0756 (Not Given - Provider: Wendy Dooley RN - Reason: Patient on Leave of Absence)1146 (Not Given - Provider: Wendy Dooley RN - Reason: Parameter(s) Not Met)1703 (Not Given - Provider: Wendy Dooley RN - Reason: Parameter(s) Not Met)2200 (No Insulin - Provider: Indy Livingston RN - Reason: Parameter(s) Not Met) 0800 (Not Given - Provider: Sabra Mancuso RN - Reason: Parameter(s) Not Met)1447 (Given - Provider: Sabra Mancuso RN)1700 (Not Given - Provider: Sabra Mancuso RN - Reason: Parameter(s) Not Met) Iopamidol (Isovue 370) inj 100 mL (COMPLETED) 100 mL, Intravenous, ONCE, On Thu12/01/24 at 1145, For 1 dose, Radiology Medication Routing (Non-IR) 1145 (Given - Provider: Nakia Aguirre, RT) metoprolol succinate XL (toPROL XL) tab 50 mg(Linked Group 1) 50 mg, Oral, Daily(AM), First dose on Thu12/02/24 at 0900, Until Discontinued, Hold for HR less than 60 or SBP below 100 and notify service if dose is held This med should NOT be Crushed or Chewed. 805 (Given - Provider: Sabra Mancuso RN) Metoprolol Tartrate (Lopressor) tab 100 mg (COMPLETED)(Linked Group 1) 100 mg, Oral, Q12H, First dose (after last modification) on Thu11/30/24 at 2100, Last dose on Thu12/01/24 at 0900, For 2 doses, Hold for HR less than 60 or SBP below 100 and notify service if dose is held 2152 (Given - Provider: Indy Livingston RN) 08 (Given - Provider: Wendy Dooley RN) Metoprolol Tartrate (Lopressor) tab 12.5 mg (CANCELED) 12.5 mg, Oral, Q12H, First dose (after last modification) on Thu11/29/24 at 0900, Last dose on Thu12/01/24 at 2100, For 3 days, Hold for HR less than 60 or SBP below 100 and notify service if dose is held 0952 (Given - Provider: Laury Cotto RN) Polyethylene Glycol 3350 (Miralax) oral powder 17 g 17 g (1 Packet), Oral, Daily(AM), First dose on Thu11/26/24 at 0900, Until Discontinued, Mix in 8 oz of water, juice, soda, coffee, or tea. 0900 (Not Given - Provider: Laury Cotto RN - Reason: NPO) 0844 (Given - Provider: Wendy Dooley RN) 0900 (Not Given - Provider: Sabra Mancuso RN - Reason: Parameter(s) Not Met) senna-docusate (Senokot-S) 2 Tablet 2 Tablet, Oral, BID (.AM/PM), First dose on Thu11/26/24 at 0900, Until Discontinued 0952 (Given - Provider: Laury Cotto RN)2153 (Given - Provider: Indy Livingston RN) 0841 (Given - Provider: Wendy Dooley RN)2100 (Not Given - Provider: Indy Livingston RN - Reason: Parameter(s) Not Met - Comment: pt having loose stools) 0900 (Not Given - Provider: Sabra Mancuso RN - Reason: Parameter(s) Not Met) sodium chloride 0.9 % flush central line 10 mL 10 mL, IV Push, Q8H, First dose on Thu11/24/24 at 0600, Until Discontinued, TO UNUSED PORTS Do not flush if lock, PICC, or central line not in place; IV infusing or unable to flush. 0600 (Not Given - Provider: Indira Navas RN - Reason: Other- Please add reason in Comments - Comment: heparin infusing)1400 (Not Given - Provider: Laury Cotto RN - Reason: Parameter(s) Not Met)2200 (Not Given - Provider: Indy Livingston RN - Reason: Parameter(s) Not Met) 0600 (Not Given - Provider: Indy Livingston RN - Reason: Parameter(s) Not Met)1400 (Not Given - Provider: Wendy Dooley RN - Reason: Parameter(s) Not Met)2200 (Not Given - Provider: Indy Livingston RN - Reason: Parameter(s) Not Met) 0600 (Not Given - Provider: Indy Livingston RN - Reason: Parameter(s) Not Met)1400 (Not Given - Provider: Sabra Mancuso RN - Reason: Parameter(s) Not Met) tamsulosin (Flomax) cap 0.4 mg 0.4 mg, Oral, HS, First dose on Thu11/25/24 at 1615, Until Discontinued, Administer 30 min after meal. This med should NOT be Crushed or Chewed or opened! ORAL administration only!! 2152 (Given - Provider: Indy Livingston RN) 2137 (Given - Provider: Indy Livingston RN) venlafaxine XR (Effexor XR) cap 75 mg 75 mg, Oral, Daily(AM), First dose on Thu11/25/24 at 1000, Until Discontinued, This med should NOT be Crushed or Chewed but may be opened and contents administered in a spoonful of applesauce or pudding without chewing or crushing. 0952 (Given - Provider: Laury Cotto RN) 0841 (Given - Provider: Wendy Dooley RN) 0807 (Given - Provider: Sabra Mancuso, RN) warfarin check daily dose (PHARMACIST MANAGED) [id number], First dose on Thu11/29/24 at 1500, Until Discontinued, Routine, Contact the pharmacy if there is not a warfarin dose entered by 1500 and document with whom it was discussed. 1500 (Order Check Addressed - Provider: Laury Cotto RN) 1418 (Order Check Addressed - Provider: Wendy Dooley, ARLENE) 1500 (Order Check Addressed - Provider: Sabra Mancuso, ARLENE) Warfarin Sodium (Coumadin) tab 10 mg (COMPLETED) 10 mg, Oral, QPM-1999, First dose on Thu12/01/24 at 1999, Last dose on Thu12/01/24 at 1999, For 1 day, WASTE INFO: Return packaging and waste medication in zip lock bag to pharmacy - [facility] container. 2136 (Given - Provider: Indy Livingston, RN) Warfarin Sodium (Coumadin) tab 10 mg 10 mg, Oral, QPM-1999, First dose on Thu12/02/24 at 1999, Last dose on Thu12/02/24 at 1999, For 1 day, WASTE INFO: Return packaging and waste medication in zip lock bag to [facility] container. Warfarin Sodium (Coumadin) tab 5 mg (COMPLETED) 5 mg, Oral, QPM-1999, First dose on Thu11/30/24 at 1999, Last dose on Thu11/30/24 at 1999, For 1 day, WASTE INFO: Return packaging and waste medication in zip lock bag to [facility] container. 2155 (Given - Provider: Indy Livingston, RN) Continuous Medication Order 11/30/2024 12/01/2024 12/02/2024 hEParin 25,000 units in 250 mL (Xa-Cardiac) infusion Intravenous, at 0-27.57 mL/hr, Start heparin as soon as baseline labs are drawn. Please select this medication from the infusion pump library! Concentration: 100 units/mL Expires 96 hours after spiking on (date) at (hour) , TITRATE, Starting on 11/26/24 at 1245, Until Thu12/02/24 at 2148 0244 (New Bag - Provider: Indira Navas RN)0751 (Nurse Change - Provider: Laury Cotto, ARLENE)1402 (Rate Verify - Provider: Wendy Rincon RN - Comment: pt arrived from med surge floor to pre-op)1727 (New Bag - Provider: Laury Cotto RN)1918 (Nurse Change - Provider: Indy Livingston RN - Comment: okay to keep running at 22u /hr due to being paused for LI per Dr. Libia Thompson.)2158 (Rate Change - Provider: Indy Livingston RN) 0300 (Entry Error - Provider: Indy Livingston RN)0407 (New Bag - Provider: Indy Livingston RN)0539 (Rate Change - Provider: Indy Livingston RN)0712 (Nurse Change - Provider: Indy Livingston RN)1236 (Stopped - Provider: Wendy Dooley, ARLENE)1317 (Rate Change - Provider: Wendy Dooley, RN)1637 (New Bag - Provider: Wendy Dooley RN)1828 (Rate Verify - Provider: Wendy Dooley RN)1903 (Nurse Change - Provider: Indy Livingston RN) 0145 (Rate Change - Provider: Indy Livingston, RN)0447 (New Bag - Provider: Indy Livingston RN)0722 (Nurse Change - Provider: Indy Livingston RN)1159 (Rate Verify - Provider: Sabra Mancuso, RN)1523 (Rate Verify - Provider: Sabra Mancuso, RN)2148 (Due: Stopped) Isolyte-S pH 7.4 infusion () Intravenous, at 100 mL/hr, Plasma-LYTE 148, isolyte-S, and isolyte-S pH 7.4 are considered equivalent - including for MAR barcode scanning., CONTINUOUS, Starting on Thu11/30/24 at 1900, Until Thu12/01/24 at 0459 1843 (New Bag - Provider: Laury Cotto RN) 0400 (Stopped - Provider: Indy Livingston, ARLENE) PRN Medication Order 11/30/2024 12/01/2024 12/02/2024 Acetaminophen (Tylenol) tab 650 mg 650 mg, Oral, Q6H PRN Pain, Mild, Fever >38C(100.5F), Starting on Thu11/24/24 at 1930, Until Thu12/02/24 at 2148, Maximum of 4 grams (4000 mg) per day. dextrose 50% inj 25 mL 25 mL, IV Push, PRN Hypoglycemia, Other, For blood glucose 54 - 69 mg/dL or 70 - 100 mg/dL with symptoms AND patient is unresponsive, NPO, OR unable to swallow, Starting on Antonina 11/24/24 at 1057, Until Thu12/02/24 at 2147, Administer IV. Recheck blood glucose after 15 minutes. Notify provider. dextrose 50% inj 50 mL 50 mL, IV Push, PRN Hypoglycemia, Other, For blood glucose below 54 mg/dL AND patient unresponsive, NPO, OR unable to swallow, Starting on Antonina 11/24/24 at 1057, Until Thu12/02/24 at 2147, Administer IV. Recheck blood glucose in 15 minutes. Notify provider. glucagon (Glucagen) inj 1 mg 1 mg, Intramuscular, PRN Hypoglycemia, Other, If patient is unresponsive, or NPO and has no IV access, Starting on Antonina 11/24/24 at 1057, Until Thu12/02/24 at 2147, NPO and no IV access with either 1) blood glucose less than 100 mg/dL and symptomatic OR 2) blood glucose less than 70 mg/dL and asymptomatic Glucose (Glutose 15) 40 % gel 15 g of glucose 15 g of glucose, Oral, PRN Hypoglycemia (low sugar), Other, For blood glucose 54 - 69 mg/dL or 70 - 100 mg/dL with symptoms AND patient alert WITH difficulty chewing/swallowing, Starting on Antonina 11/24/24 at 1057, Until Thu12/02/24 at 2147, Administer gel. Recheck blood glucose after 15 minutes. Notify provider. 37.5 gram tube = 15 grams glucose = 1 each Glucose (Glutose 15) 40 % gel 30 g of glucose 30 g of glucose, Oral, PRN Hypoglycemia (low sugar), Other, For blood glucose below 54 mg/dL AND patient alert WITH difficulty chewing/swallowing, Starting on Antonina 11/24/24 at 1057, Until Thu12/02/24 at 2147, Administer gel. Recheck blood glucose after 15 minutes. Notify provider. 37.5 gram tube = 15 grams glucose = 1 each glucose chew tab 16 g 16 g, Oral, PRN Hypoglycemia, Other, For blood glucose 54 - 69 mg/dL or 70 - 100 mg/dL with symptoms and patient alert without difficulty chewing/swallowing., Starting on Antonina 11/24/24 at 1057, Until Thu12/02/24 at 2147 hEParin 1000 UNIT/ML inj 1,400 Units 1,400 Units (rounded from 1,378.5 Units = 15 Units/kg 91.9 kg Adjusted weight), IV Push, PRN Other, If most recent Heparin Assay result is between 0.21 and 0.29 units/mL, Starting on 11/26/24 at 1208, Until Thu12/02/24 at 2147, Repeat Heparin Assay 6 hours after bolus is administered. hEParin 1000 UNIT/ML inj 2,800 Units 2,800 Units (rounded from 2,757 Units = 30 Units/kg 91.9 kg Adjusted weight), IV Push, PRN Other, If most recent Heparin Assay result is less than or equal to 0.2 units/mL, Starting on 11/26/24 at 1208, Until Thu12/02/24 at 2148, Repeat Heparin Assay 6 hours after bolus is administered. 2156 (Given - Provider: Indy Livingston, ARLENE) loperamide (Imodium) cap 2 mg 2 mg, Oral, Q4H PRN Diarrhea, Starting on Antonina 12/01/24 at 2111, Until Thu12/02/24 at 2148, Maximum of 16 mg per day recommended 2136 (Given - Provider: Indy Livingston RN) ondansetron (Zofran) inj 4 mg 4 mg, IV Push, Q6H PRN Nausea, Starting on Antonina 12/01/24 at 0421, Until Thu12/02/24 at 2148, For 2 doses 0619 (Given - Provider: Indy Livingston RN) Linked Groups Order Group 1: Metoprolol Tartrate (Lopressor) tab 100 mg (COMPLETED)Jump to med 100 mg, Oral, Q12H, First dose (after last modification) on Thu11/30/24 at 2100, Last dose on Thu12/01/24 at 0900, For 2 doses, Hold for HR less than 60 or SBP below 100 and notify service if dose is held Followed by metoprolol succinate XL (toPROL XL) tab 50 mgJump to med 50 mg, Oral, Daily(AM), First dose on Thu12/02/24 at 0900, Until Discontinued, Hold for HR less than 60 or SBP below 100 and notify service if dose is held This med should NOT be Crushed or Chewed. documented in this encounter Advance Directives * Full Code (Latest Code Status on File) Date Activated Date Inactivated Comments 11/24/2024 1:12 AM 12/02/2024 9:53 PM This order re flects the patients wishes and were consensually agreed upon. Question Answer Comments Discussion of Advance Direct loli occurred with: Not Discussed due to patient's condition Care Teams Stud Sheep Farmer Relationship Specialty Start Date End Date Tai Bal PA-C [address] [facility] [address] [place] [id number] PCP - General Physician Industrial Manufacturing Technician 11/29/24 documented as of this encounter
--- OUTSIDE RECORDS SUMMARY | 2024-12-10 14:03 | External Medical Summary ---
Author Name Unknown Address Unknown Organization [id number]:LABORATORY [facility] - [address] [place] [address] Laboratory Report Ordering Provider Test Date Status ANDREA AYON 12/02/2024 05:29:00 Final Observation Date Value Abnormality Reference (Units ) Status Magnesium 12/02/2024 05:29:00 1.8 1.5-2.6 (m g/dL) Final Performing Location [facility]AT[facility] - [address] [place] [address]
--- OUTSIDE RECORDS SUMMARY | 2024-12-10 14:03 | External Medical Summary | Summary of Care ---
Author Name Unknown Organization [facility] Address [address] [place] [address] Phone [phone] Care Team Providers Care Bilingual School Psychologist Name Role Phone Tai Bal PA-C Primary Care Provide r Reason for Visit * Auth/Cert Specialty Diagnoses / Procedures Referred By Contac t Referred To Contact Diagnoses new aphasia, s/p fall 11/22/24 Diomedes Rico MD [address] [place] [address] Phone: tel: fax: Admissions, [facility] [address] [place] [address] Referral ID Status Reason Start Date Expiration Date Visits Re quested Visits Authorized [id number] Encounter Details Date Type Department Care Team (Latest Contact Info) Description 12/01/2024 11:43 AM EDT - 12/01/2024 11:59 PM EDT Hospital Encounter Cardiac Studies [facility] [address] [place], [place] [phone] Discharge Disposition: Home - Self Care Allergies Active Allergy Reactions Criticality Noted Date Comments Bee Venom 01/21/2022 Cephalosporins 01/16/2004 hives Penicillin G 2019 documented as of this encounter (statuses as of 12/02/2024) Medications amLODIPine Besylate 10 MG Oral Tablet (Norvasc) 025 Discontinued Eliquis 5 MG Oral Tablet 2 025 Discontinued Benazepril HCl 20 MG Oral Tablet (Lotensin) Suspended Simvastatin 20 MG Oral Tablet (Zocor) 2 025 Discontinued Melatonin 5 MG Oral TabletIndicatio ns:Obstructive sleep apnea of adult,Class 2 severe obesity due to excess calories with serious comorbidity and body mass index (BMI) of 39.0 to 39.9 in adult (HCC),HTN, goal below 130/80,History of stroke,Sleep phase syndrome, delayed Take 1 tablet (5 mg) one hour before bedtime (~11 pm) nightly. 30 Tablet 1 2 Suspended Venlafaxine HCl ER 75 MG Oral Capsule Extended Release 24 Hour (Effexor XR) Take 1 Capsule by mouth in the morning. 5 Suspended Metoprolol Succinate ER 50 MG Oral Tablet Extended Release 24 Hour (toPROL XL) Take 1 Tablet by mouth in the morning. 025 Discontinued documented as of this encounter (statuses as of 12/02/2024) Active Problems Problem Noted Date Diagnosed Date [...] as of this encounter (statuses as of 12/02/2024) Resolved Problems Problem Noted Date Diagnosed Date Resolved Date Respiratory failure without hypercapnia 11/26/2024 11/26/2024 Pseudoaneurysm following procedure 11/24/2024 12/01/2024 documented as of this encounter (statuses as of 12/02/2024) Social History Tobacco Use Types Packs/Day Years [...] on file documented as of this encounter Plan of Treatment Upcoming Encounters Date Type Department Care Team ([facility] st Contact Info) Description 12/08/2024 5:10 PM EDT Anticoagulation Pharmacy [address] [phone] Pharmacist2, [facility] [address] [id number] 01/03/2025 1:30 PM EDT Office Visit Neurosurgery, [facility] [address] [place], [place] [phone] Peter Blas MD [address] [place], [place] [phone] 01/03/2025 2:20 PM EDT Telemedicine Neurology [address] [address] [place] [phone] Migel Young MD [address] [place], [place] [phone] 05/09/2025 1:30 PM EDT Office Visit Cardiothoracic Surg [facility], [facility] [address] [place], [place] [phone] Lance Pennington MD [address] [place], [place] [phone] Health Maintenance Due Date Last Done Comments [...] Vaccines (1 of 2) 2020 COVID-19 Vaccine ( season) 2024 Influenza Vaccine (FLU shot) (Season [...] Procedure Name Priority Date/Time Associated Diagnosis Comments ECHO, TTE, LIMITED Routine 12/01/2024 1: 41 PM EDT Valvular heart disease documented in this encounter Results * ECHO, TTE, LIMITED (12/01/2024 1:41 PM EDT) LEFT VENTRICULAR EJECTION FRACTION 50 % [facility] 12/01/2024 1:0 9 PM EDT us Jordan Felix DO ECHOCARDIOLOGY Final R esult [facility] documented in this encounter Advance Directives * Full Code (Latest Code Status on File) Date Activated Date Inactivated Comments 11/24/2024 1:12 AM This order ref lects the patients wishes and were consensually agreed upon. Question Answer Comments Discussion of Advance Direct loli occurred with: Not Discussed due to patient's condition Care Teams Bilingual School Psychologist Relationship Specialty Start Date End Date Tai Bal PA-C [address] [facility] [address] [place] [id number] PCP - General Physician Sales Exhibitor 11/29/24 documented as of this encounter
--- OUTSIDE RECORDS SUMMARY | 2024-12-10 14:03 | External Medical Summary ---
Author Name Unknown Address Unknown Organization [id number]:LABORATORY [facility] [address] - [address] [place] [address] Laboratory Report Ordering Provider Test Date Status PETRA ESPINAL 12/03/2024 06:09:37 Final Warfarin Therapy
INR: 2 .0-3.0 conventional anticoagulation
INR: 2.5- 3.5 high intensity anticoagulation Observation Date Value Abnormality Reference (Units ) Status PT 12/03/2024 06:09:37 20.3 Above high normal 11 .6-15.2 (seconds) Final INR 12/03/2024 06:09:37 1.7 Above high normal 0. 8-1.2 Final Performing Location LABORATORY [facility] [address] [place] [address]
--- OUTSIDE RECORDS SUMMARY | 2024-12-10 14:03 | External Medical Summary ---
Author Name Unknown Address Unknown Organization : Laboratory Report Ordering Provider Test Date Status ALEXUS FORD 12/02/2024 11:51:04 Final Observation Date Value Abnormality Reference (Units ) Status Glucose Point of Care 12/02/2024 11:51:04 180 Above high normal 70-120 (mg/dL) Final Performing Location
--- OUTSIDE RECORDS SUMMARY | 2024-12-10 14:03 | External Medical Summary ---
Author Name Unknown Address Unknown Organization [id number]:[facility] [place] [address] [place] [address] Laboratory Report Ordering Provider Test Date Status ALEXUS FORD 12/02/2024 07:23:00 Final Observation Date Value Abnormality Reference (Units ) Status Heparin, unfractionated level 12/02/2024 07:23:00 0.46 Above high normal <0.10 (IU/mL) Final Anti-Xa Therapeutic Ranges<b r/>
Neurology/Stroke: 0.15 to 0.35 IU/mL
Cardiology/Acute Coronory [...] icterus. Consult laboratory medicine with any questions. Performing Location [facility] [place] [facility] [address] [place] [address]
--- OUTSIDE RECORDS SUMMARY | 2024-12-10 14:03 | External Medical Summary ---
Author Name Unknown Address Unknown Organization [id number] [address] [place] [address] Laboratory Report Ordering Provider Test Date Status ALEXUS BELTRAN 12/03/2024 06:09:37 Final Observation Date Value Abnormality Reference (Units ) Status WBC, Total 12/03/2024 06:09:37 7.17 4.00-10.8 0 (K/uL) Final RBC 12/03/2024 06:09:37 3.56 4.50-5.25 (M/uL) Final Hemoglobin 12/03/2024 06:09:37 10.5 Below low normal 14 .0-16.8 (g/dL) Final HCT 12/03/2024 06:09:37 32.6 Below low normal 40. 0-48.4 (%) Final MCV 12/03/2024 06:09:37 91.6 82.0-99.5 (fL) Final MCH 12/03/2024 06:09:37 29.5 27.0-34.0 (pg) Final MCHC 12/03/2024 06:09:37 32.2 32.0-36.0 (g/dL) Final RDW 12/03/2024 06:09:37 15.0 11.5-15.5 (%) Final Platelets 12/03/2024 06:09:37 285 140-400 (K /uL) Final MPV 12/03/2024 06:09:37 11.6 6.6-11.1 ( fL) Final Performing Location LABORATORY [facility] [address] [place] [address]
--- OUTSIDE RECORDS SUMMARY | 2024-12-10 14:03 | External Medical Summary ---
Author Name Unknown Address Unknown Organization K01:[facility] [place] [address] [place] [address] Laboratory Report Ordering Provider Test Date Status ALEXUS FORD 12/02/2024 12:44:00 Final Observation Date Value Abnormality Reference (Units ) Status Heparin, unfractionated level 12/02/2024 12:44:00 0.52 Above high normal <0.10 (IU/mL) Final Anti-Xa [...] medicine with any questions. Performing Location [facility] [place] [facility] [address] [place] [address]
--- OUTSIDE RECORDS SUMMARY | 2024-12-10 14:03 | External Medical Summary ---
Author Name Unknown Address Unknown Organization K01:LABORATORY [facility] [place] - [facility] [address] [place] [address] Laboratory Report Ordering Provider Test Date Status ANDREA AYON 12/02/2024 05:29:00 Final Observation Date Value Abnormality Reference (Units ) Status BUN 12/02/2024 05:29:00 15 6-20 (mg/dL) Final Creatinine 12/02/2024 05:29:00 1.2 0.6-1.2 (mg/dL) Final Glomerular filtration rate/1.73 sq M.predicted [Volume Rate/Area] in Serum, Plasma or Blood by Creatinine-based formula (CKD-EPI) 12/02/2024 05:29:00 73 >=60 (mL/min) Final eGFR is calculated based on the CKD-EPI 2020 equation. Sodium 12/02/2024 05:29:00 137 135-146 (m mol/L) Final Potassium 12/02/2024 05:29:00 4.0 3.5-5.1 (m mol/L) Final Cl 12/02/2024 05:29:00 104 98-107 (mm ol/L) Final CO2 12/02/2024 05:29:00 23 22-32 (mmo l/L) Final Anion gap 12/02/2024 05:29:00 10 7-15 (mmol /L) Final Glucose 12/02/2024 05:29:00 136 Above high normal 70 -120 (mg/dL) Final Calcium 12/02/2024 05:29:00 8.4 8.4-10.2 ( mg/dL) Final Performing Location LABORATORY [facility] [place] - [address] [place] [address]
--- OUTSIDE RECORDS SUMMARY | 2024-12-10 14:03 | External Medical Summary | Summary of Care ---
Author Name Unknown Organization [facility] Address [address] [facility] [place] [address] Phone [phone] Care Team Providers Care Executive Office Manager Name Role Phone Tai Bal PA-C Primary Care Provide r Reason for Visit * Reason Comments Dosage Adjustment Via Phone (anticoag Cl inic) * Evaluate & Treat - Unlimited Visits (Within 3 days (urgent)) - Authorized Specialty Diagnoses / Procedures Referred By Ursula haines Referred To Contact [facility] / Pharmacy Diagnoses Acute ischemic left MCA stroke (HCC) Collette Jimenez MD Phone: tel: fax: Referral ID Status Reason Start Date Expiration Date Visits Requested Visits Authorized [id number] Authorized Specialty Services Required 12/02/2024 05/31/2025 99 99 Encounter Details Date Type Department Care Team (Latest Contact Info) Description 12/02/2024 5:10 PM EDT Anticoagulation Pharmacy [address] [phone] Pharmacist2, [facility] [address] [address] Anticoagulation management encounter*; Acute ischemic left MCA stroke (HCC); S/P AVR (aortic valve replacement) Allergies Active Allergy Reactions Criticality Noted Date Comments Bee Venom 01/21/2022 Cephalosporins 01/16/2004 hives Penicillin G 2019 documented as of this encounter (statuses as of 12/02/2024) Medications Benazepril HCl 20 MG Oral Tablet [...] Sodium 120 MG/0.8ML Injection Solution Prefilled Syringe (Loven[address]ine [address] Mobile) Inject 1 syringe (120 mg) under the [...] Progress Notes * Carley Yan RPh - 12/02/2024 4:02 PM EDT [place] [facility] [place] for acute L MCA stroke in the setting of severe aortic prosthetic valve stenosis. Previously on Eliquis and transitioning to warfarin due to valvular disease. Discharging to inpatient rehab at [facility] per inpatient CM notes. Called and confirmed with [facility] pharmacist that they do manage warfarin in-house and will fax warfarin flow sheet at discharge. Will follow up in 1 week to check for discharge. Carley Yan PharmD, BCPS Clinical Pharmacist - Surfacing Machine Operator Medication Therapy Management [facility] 12/02/24 4:08 PM documented in this encounter Plan of Treatment Upcoming Encounters Date Type Department Care Team (Late st Contact Info) Description 12/08/2024 5:10 PM EDT Anticoagulation Pharmacy [facility] [address] [place] [phone] Pharmacist2, [facility] [address] [address] 01/03/2025 1:30 PM EDT Office Visit Neurosurgery, [place] [address] [place] [address] Peter Blas MD [address] [place] [place], [place] [id number] 01/03/2025 2:20 PM EDT Telemedicine Neurology Heladio Rosario, [place] [address] [place] [address] Migel Young MD [address] [place] [place], [place] [id number] 05/09/2025 1:30 PM EDT Office Visit Cardiothoracic Surg [facility], [place] [address] [place], [place] [phone] Lance Pennington MD [address] [place], [place] [phone] Scheduled Referrals Name Type Priority Associated Diagnoses [...] encounter- Primary Encounter for therapeutic drug monitoring Acute ischemic left MCA stroke (HCC) Unspecified cerebral artery occlusion with cerebral infarction S/P AVR (aortic valve replacement) Heart valve replaced by other means documented in this encounter Advance Directives * Full Code (Latest Code Status on File) Date Activated Date Inactivated Comments 11/24/2024 1:12 AM 12/02/2024 9:53 PM This order re flects the patients wishes and were consensually agreed upon. Question Answer Comments Discussion of Advance Direct loli occurred with: Not Discussed due to patient's condition Care Teams Executive Office Manager Relationship Specialty Start Date End Date Tai Bal PA-C [address] [facility] [address] [place] [id number] PCP - General Physician Application Architect 11/29/24 documented as of this encounter
--- OUTSIDE RECORDS SUMMARY | 2024-12-10 14:03 | External Medical Summary ---
Author Name Unknown Address Unknown Organization : Laboratory Report Ordering Provider Test Date Status ALEXUS FORD 12/02/2024 07:49:40 Final Observation Date Value Abnormality Reference (Units ) Status Glucose Point of Care 12/02/2024 07:49:40 124 Above high normal 70-120 (mg/dL) Final Performing Location
--- OUTSIDE RECORDS SUMMARY | 2024-12-10 14:03 | External Medical Summary ---
Author Name Unknown Address Unknown Organization K01:[facility] [place] [address] [place] [address] Laboratory Report Ordering Provider Test Date Status ANDREA AYON 12/02/2024 05:29:00 Final Warfarin Therapy
INR: 2 .0-3.0 conventional anticoagulation
INR: 2.5- 3.5 high intensity anticoagulation Observation Date Value Abnormality Reference (Units ) Status PT 12/02/2024 05:29:00 15.7 Above high normal 11 .6-15.2 (seconds) Final INR 12/02/2024 05:29:00 1.2 0.8-1.2 Final Performing Location [facility] [place] [address] [place] [address]
--- OUTSIDE RECORDS SUMMARY | 2024-12-10 14:03 | External Medical Summary ---
Author Name Unknown Address Unknown Organization [id number]:[facility] - [address] [place] [address] Laboratory Report Ordering Provider Test Date Status ALEXUS BELTRAN 12/03/2024 06:09:37 Final Observation Date Value Abnormality Reference (Units ) Status BUN 12/03/2024 06:09:37 15 6-20 (mg/dL) Final Creatinine 12/03/2024 06:09:37 1.2 0.6-1.2 (mg/dL) Final Glomerular filtration rate/1.73 sq M.predicted [Volume Rate/Area] in Serum, Plasma or Blood by Creatinine-based formula (CKD-EPI) 12/03/2024 06:09:37 76 >=60 (mL/min) Final eGFR is calculated based on the CKD-EPI 2020 equation. Sodium 12/03/2024 06:09:37 139 135-146 (m mol/L) Final Potassium 12/03/2024 06:09:37 4.1 3.5-5.1 (m mol/L) Final Cl 12/03/2024 06:09:37 104 98-107 (mm ol/L) Final CO2 12/03/2024 06:09:37 23 22-32 (mmo l/L) Final Anion gap 12/03/2024 06:09:37 12 7-15 (mmol /L) Final Glucose 12/03/2024 06:09:37 130 Above high normal 70 -120 (mg/dL) Final Calcium 12/03/2024 06:09:37 8.5 8.4-10.2 ( mg/dL) Final Performing Location [facility] [address] - [address] [place] [address]
--- OUTSIDE RECORDS SUMMARY | 2024-12-10 14:03 | External Medical Summary ---
Author Name Unknown Address Unknown Organization : Laboratory Report Ordering Provider Test Date Status ALEXUS FORD 12/02/2024 16:24:46 Final Observation Date Value Abnormality Reference (Units ) Status Glucose Point of Care 12/02/2024 16:24:46 119 70-120 (mg/dL) Final Performing Location
--- OUTSIDE RECORDS SUMMARY | 2024-12-10 14:04 | External Medical Summary ---
Author Name Unknown Address Unknown Organization K01:LAB[facility]ATORY [facility] - [address] [place] [address] Laboratory Report Ordering Provider Test Date Status ANDREA AYON 12/01/2024 04:57:00 Final Observation Date Value Abnormality Reference (Units ) Status Magnesium 12/01/2024 04:57:00 1.7 1.5-2.6 (m g/dL) Final Performing Location [facility] - [address] [place] [address]
--- OUTSIDE RECORDS SUMMARY | 2024-12-10 14:04 | External Medical Summary ---
Author Name Unknown Address Unknown Organization : Laboratory Report Ordering Provider Test Date Status ALEXUS FORD 11/29/2024 11:38:55 Final Observation Date Value Abnormality Reference (Units ) Status Glucose Point of Care 11/29/2024 11:38:55 150 Above high normal 70-120 (mg/dL) Final Performing Location
--- OUTSIDE RECORDS SUMMARY | 2024-12-10 14:04 | External Medical Summary ---
Author Name Unknown Address Unknown Organization : Laboratory Report Ordering Provider Test Date Status ALEXUS FORD 11/30/2024 07:41:14 Final Observation Date Value Abnormality Reference (Units ) Status Glucose Point of Care 11/30/2024 07:41:14 153 Above high normal 70-120 (mg/dL) Final Performing Location
--- OUTSIDE RECORDS SUMMARY | 2024-12-10 14:04 | External Medical Summary ---
Author Name Unknown Address Unknown Organization K01:LABORATORY [facility] - [address] [place] [address] Laboratory Report Ordering Provider Test Date Status ANDREA AYON 11/29/2024 05:30:00 Final Observation Date Value Abnormality Reference (Units ) Status Magnesium 11/29/2024 05:30:00 1.6 1.5-2.6 (m g/dL) Final Performing Location [facility] - [address] [place] [address]
--- OUTSIDE RECORDS SUMMARY | 2024-12-10 14:04 | External Medical Summary ---
Author Name Unknown Address Unknown Organization : Laboratory Report Ordering Provider Test Date Status ALEXUS FORD 12/01/2024 11:36:29 Final Observation Date Value Abnormality Reference (Units ) Status Glucose Point of Care 12/01/2024 11:36:29 144 Above high normal 70-120 (mg/dL) Final Performing Location
--- OUTSIDE RECORDS SUMMARY | 2024-12-10 14:04 | External Medical Summary ---
Author Name Unknown Address Unknown Organization : Laboratory Report Ordering Provider Test Date Status ALEXUS FORD 12/01/2024 21:07:25 Final Observation Date Value Abnormality Reference (Units ) Status Glucose Point of Care 12/01/2024 21:07:25 138 Above high normal 70-120 (mg/dL) Final Performing Location
--- OUTSIDE RECORDS SUMMARY | 2024-12-10 14:04 | External Medical Summary ---
Author Name Unknown Address Unknown Organization : Laboratory Report Ordering Provider Test Date Status ALEXUS FORD 11/29/2024 07:32:18 Final Observation Date Value Abnormality Reference (Units ) Status Glucose Point of Care 11/29/2024 07:32:18 143 Above high normal 70-120 (mg/dL) Final Performing Location
--- OUTSIDE RECORDS SUMMARY | 2024-12-10 14:04 | External Medical Summary ---
Author Name Unknown Address Unknown Organization K01:[facility] - [address] [place] [address] Laboratory Report Ordering Provider Test Date Status ANDREA AYON 11/29/2024 05:30:00 Final Observation Date Value Abnormality Reference (Units ) Status Phosphate 11/29/2024 05:30:00 3.7 2.5-4.8 (m g/dL) Final Performing Location [facility] - [address] [place] [address]
--- OUTSIDE RECORDS SUMMARY | 2024-12-10 14:04 | External Medical Summary ---
Author Name Unknown Address Unknown Organization K01:[facility] [place] - [address] [place] [address] Laboratory Report Ordering Provider Test Date Status ANDREA AYON 11/30/2024 05:12:00 Final Observation Date Value Abnormality Reference (Units ) Status BUN 11/30/2024 05:12:00 20 6-20 (mg/dL) Final Creatinine 11/30/2024 05:12:00 1.4 Above high normal 0.6-1.2 (mg/dL) Final Glomerular filtration rate/1.73 sq M.predicted [Volume Rate/Area] in Serum, Plasma or Blood by Creatinine-based formula (CKD-EPI) 11/30/2024 05:12:00 60 >=60 (mL/min) Final eGFR is calculated based on the CKD-EPI 2020 equation. Sodium 11/30/2024 05:12:00 138 135-146 (m mol/L) Final Potassium 11/30/2024 05:12:00 4.0 3.5-5.1 (m mol/L) Final Cl 11/30/2024 05:12:00 102 98-107 (mm ol/L) Final CO2 11/30/2024 05:12:00 23 22-32 (mmo l/L) Final Anion gap 11/30/2024 05:12:00 13 7-15 (mmol /L) Final Glucose 11/30/2024 05:12:00 148 Above high normal 70 -120 (mg/dL) Final Calcium 11/30/2024 05:12:00 9.1 8.4-10.2 ( mg/dL) Final Performing Location [facility] [place] - [address] [place] [address]
--- OUTSIDE RECORDS SUMMARY | 2024-12-10 14:04 | External Medical Summary ---
Author Name Unknown Address Unknown Organization K01:[facility]ORY [facility] [place] - [address] [place] [address] Laboratory Report Ordering Provider Test Date Status ALEXUS FORD 11/30/2024 17:06:00 Final Observation Date Value Abnormality Reference (Units ) Status Heparin, unfractionated level 11/30/2024 17:06:00 0.16 Above high normal <0.10 (IU/mL) Final Anti-Xa [...] medicine with any questions. Performing Location LAB[facility]ORY [facility] [place] - [facility] [address] [place] [address]
--- OUTSIDE RECORDS SUMMARY | 2024-12-10 14:04 | External Medical Summary ---
Author Name Unknown Address Unknown Organization : Laboratory Report Ordering Provider Test Date Status ALEXUS FORD 11/30/2024 17:05:55 Final Observation Date Value Abnormality Reference (Units ) Status Glucose Point of Care 11/30/2024 17:05:55 154 Above high normal 70-120 (mg/dL) Final Performing Location
--- OUTSIDE RECORDS SUMMARY | 2024-12-10 14:04 | External Medical Summary ---
Author Name Unknown Address Unknown Organization K01:[facility]ORY [facility] [place] - [address] [place] [address] Laboratory Report Ordering Provider Test Date Status ANDREA AYON 11/30/2024 05:12:00 Final Warfarin Therapy
INR: 2 .0-3.0 conventional anticoagulation
INR: 2.5- 3.5 high intensity anticoagulation Observation Date Value Abnormality Reference (Units ) Status PT 11/30/2024 05:12:00 12.4 11.6-15.2 (seconds) Final INR 11/30/2024 05:12:00 0.9 0.8-1.2 Final Performing Location [facility] [place] - [address] [place] [address]
--- OUTSIDE RECORDS SUMMARY | 2024-12-10 14:04 | External Medical Summary ---
Author Name Unknown Address Unknown Organization K01:[facility] [place] [address] [place] [address] Laboratory Report Ordering Provider Test Date Status ALEXUS FORD 11/30/2024 21:03:00 Final Observation Date Value Abnormality Reference (Units ) Status Heparin, unfractionated level 11/30/2024 21:03:00 0.16 Above high normal <0.10 (IU/mL) Final [...] [facility] [place] [facility] [address] [place] [address]
--- OUTSIDE RECORDS SUMMARY | 2024-12-10 14:04 | External Medical Summary ---
Author Name Unknown Address Unknown Organization : Laboratory Report Ordering Provider Test Date Status ALEUXS FORD 11/30/2024 14:37:01 Final Observation Date Value Abnormality Reference (Units ) Status Glucose Point of Care 11/30/2024 14:37:01 134 Above high normal 70-120 (mg/dL) Final Performing Location
--- OUTSIDE RECORDS SUMMARY | 2024-12-10 14:04 | External Medical Summary ---
Author Name Unknown Address Unknown Organization K01:LABORATORY [facility] - [address] [place] [address] Laboratory Report Ordering Provider Test Date Status ANDREA AYON 11/30/2024 05:12:00 Final Observation Date Value Abnormality Reference (Units ) Status Magnesium 11/30/2024 05:12:00 1.8 1.5-2.6 (m g/dL) Final Performing Location [facility] - [address] [place] [address]
--- OUTSIDE RECORDS SUMMARY | 2024-12-10 14:04 | External Medical Summary ---
Author Name Unknown Address Unknown Organization K01:[facility]ORY [facility] [place] - [address] [place] [address] Laboratory Report Ordering Provider Test Date Status ALEXUS FORD 11/28/2024 21:08:00 Final Observation Date Value Abnormality Reference (Units ) Status Heparin, unfractionated level 11/28/2024 21:08:00 0.37 Above high normal <0.10 (IU/mL) Final Anti-Xa [...] medicine with any questions. Performing Location LAB[facility] [place] - [facility] [address] [place] [address]
--- OUTSIDE RECORDS SUMMARY | 2024-12-10 14:04 | External Medical Summary ---
Author Name Unknown Address Unknown Organization K01:[facility] - [address] [place] [address] Laboratory Report Ordering Provider Test Date Status ANDREA AYON 12/02/2024 05:29:00 Final Observation Date Value Abnormality Reference (Units ) Status Phosphate 12/02/2024 05:29:00 3.4 2.5-4.8 (m g/dL) Final Performing Location [facility] - [address] [place] [address]
--- OUTSIDE RECORDS SUMMARY | 2024-12-10 14:04 | External Medical Summary ---
Author Name Unknown Address Unknown Organization K01:LAB[facility]ORY [facility] - [address] [place] [address] Laboratory Report Ordering Provider Test Date Status ANDREA AYON 12/01/2024 04:57:00 Final Observation Date Value Abnormality Reference (Units ) Status Phosphate 12/01/2024 04:57:00 3.5 2.5-4.8 (m g/dL) Final Performing Location [facility] - [address] [place] [address]
--- OUTSIDE RECORDS SUMMARY | 2024-12-10 14:04 | External Medical Summary ---
Author Name Unknown Address Unknown Organization K01:[facility] [place] [address] [place] [address] Laboratory Report Ordering Provider Test Date Status ALEXUS FORD 12/01/2024 11:23:00 Final Observation Date Value Abnormality Reference (Units ) Status Heparin, unfractionated level 12/01/2024 11:23:00 0.73 Above high normal <0.10 (IU/mL) Final Anti-Xa [...] medicine with any questions. Performing Location [facility] [place] [facility] [address] [place] [address]
--- OUTSIDE RECORDS SUMMARY | 2024-12-10 14:04 | External Medical Summary ---
Author Name Unknown Address Unknown Organization K01:LABORATORY [facility] [place] - [address] [place] [address] Laboratory Report Ordering Provider Test Date Status GEREMIAS RAIN 11/28/2024 07:43:00 Final Observation Date Value Abnormality Reference (Units ) Status Heparin, unfractionated level 11/28/2024 07:43:00 0.67 Above high normal <0.10 (IU/mL) Final Anti-Xa [...] medicine with any questions. Performing Location LABORATORY [facility] [place] - [facility] [address] [place] [address]
--- OUTSIDE RECORDS SUMMARY | 2024-12-10 14:04 | External Medical Summary ---
Author Name Unknown Address Unknown Organization K01:[facility]ORY [facility] [place] - [address] [place] [address] Laboratory Report Ordering Provider Test Date Status ALEXUS FORD 11/30/2024 05:12:00 Final Observation Date Value Abnormality Reference (Units ) Status Heparin, unfractionated level 11/30/2024 05:12:00 0.43 Above high normal <0.10 (IU/mL) Final Anti-Xa [...] medicine with any questions. Performing Location LAB[facility]ORY [facility] [place] - [facility] [address] [place] [address]
--- OUTSIDE RECORDS SUMMARY | 2024-12-10 14:04 | External Medical Summary ---
Author Name Unknown Address Unknown Organization K01:LABORATORY [facility] [place] - [address] [place] [address] Laboratory Report Ordering Provider Test Date Status ALEXUS FORD 11/29/2024 05:30:00 Final Observation Date Value Abnormality Reference (Units ) Status Heparin, unfractionated level 11/29/2024 05:30:00 0.23 Above high normal <0.10 (IU/mL) Final Anti-Xa [...] medicine with any questions. Performing Location LABORATORY [facility] [place] - [facility] [address] [place] [address]
--- OUTSIDE RECORDS SUMMARY | 2024-12-10 14:04 | External Medical Summary ---
Author Name Unknown Address Unknown Organization K01:[facility] [place] [address] [place] [address] Laboratory Report Ordering Provider Test Date Status ANDREA AYON 11/29/2024 05:30:00 Final Warfarin Therapy
INR: 2 .0-3.0 conventional anticoagulation
INR: 2.5- 3.5 high intensity anticoagulation Observation Date Value Abnormality Reference (Units ) Status PT 11/29/2024 05:30:00 12.2 11.6-15.2 (seconds) Final INR 11/29/2024 05:30:00 0.9 0.8-1.2 Final Performing Location [facility] [place] [address] [place] [address]
--- OUTSIDE RECORDS SUMMARY | 2024-12-10 14:04 | External Medical Summary ---
Author Name Unknown Address Unknown Organization K01:LABOR[facility]ORY [facility] [place] - [address] [place] [address] Laboratory Report Ordering Provider Test Date Status ALEXUS FORD 12/02/2024 00:57:00 Final Observation Date Value Abnormality Reference (Units ) Status Heparin, unfractionated level 12/02/2024 00:57:00 0.63 Above high normal <0.10 (IU/mL) Final Anti-Xa [...] medicine with any questions. Performing Location LABOR[facility] [place] - [facility] [address] [place] [address]
--- OUTSIDE RECORDS SUMMARY | 2024-12-10 14:04 | External Medical Summary ---
Author Name Unknown Address Unknown Organization : Laboratory Report Ordering Provider Test Date Status GEREMIAS RAIN 11/28/2024 07:58:19 Final Observation Date Value Abnormality Reference (Units ) Status Glucose Point of Care 11/28/2024 07:58:19 133 Above high normal 70-120 (mg/dL) Final Performing Location
--- OUTSIDE RECORDS SUMMARY | 2024-12-10 14:04 | External Medical Summary ---
Author Name Unknown Address Unknown Organization : Laboratory Report Ordering Provider Test Date Status ALEXUS FORD 11/28/2024 21:22:03 Final Observation Date Value Abnormality Reference (Units ) Status Glucose Point of Care 11/28/2024 21:22:03 116 70-120 (mg/dL) Final Performing Location
--- OUTSIDE RECORDS SUMMARY | 2024-12-10 14:04 | External Medical Summary ---
Author Name Unknown Address Unknown Organization K01:[facility] [place] [facility] [address] [place] [address] Laboratory Report Ordering Provider Test Date Status ANDREA AYON 11/29/2024 05:30:00 Final Observation Date Value Abnormality Reference (Units ) Status BUN 11/29/2024 05:30:00 14 6-20 (mg/dL) Final Creatinine 11/29/2024 05:30:00 1.1 0.6-1.2 (mg/dL) Final Glomerular filtration rate/1.73 sq M.predicted [Volume Rate/Area] in Serum, Plasma or Blood by Creatinine-based formula (CKD-EPI) 11/29/2024 05:30:00 78 >=60 (mL/min) Final eGFR is calculated based on the CKD-EPI 2020 equation. Sodium 11/29/2024 05:30:00 138 135-146 (m mol/L) Final Potassium 11/29/2024 05:30:00 3.9 3.5-5.1 (m mol/L) Final Cl 11/29/2024 05:30:00 101 98-107 (mm ol/L) Final CO2 11/29/2024 05:30:00 25 22-32 (mmo l/L) Final Anion gap 11/29/2024 05:30:00 12 7-15 (mmol /L) Final Glucose 11/29/2024 05:30:00 152 Above high normal 70 -120 (mg/dL) Final Calcium 11/29/2024 05:30:00 8.8 8.4-10.2 ( mg/dL) Final Performing Location LABORATORY [facility] [place] - [address] [place] [address]
--- OUTSIDE RECORDS SUMMARY | 2024-12-10 14:04 | External Medical Summary ---
Author Name Unknown Address Unknown Organization K01:LABORATORY [facility] [place] - [facility] [address] [place] [address] Laboratory Report Ordering Provider Test Date Status ANDREA AYON 12/01/2024 04:57:00 Final Observation Date Value Abnormality Reference (Units ) Status BUN 12/01/2024 04:57:00 16 6-20 (mg/dL) Final Creatinine 12/01/2024 04:57:00 1.2 0.6-1.2 (mg/dL) Final Glomerular filtration rate/1.73 sq M.predicted [Volume Rate/Area] in Serum, Plasma or Blood by Creatinine-based formula (CKD-EPI) 12/01/2024 04:57:00 73 >=60 (mL/min) Final eGFR is calculated based on the CKD-EPI 2020 equation. Sodium 12/01/2024 04:57:00 137 135-146 (m mol/L) Final Potassium 12/01/2024 04:57:00 3.7 3.5-5.1 (m mol/L) Final Cl 12/01/2024 04:57:00 102 98-107 (mm ol/L) Final CO2 12/01/2024 04:57:00 23 22-32 (mmo l/L) Final Anion gap 12/01/2024 04:57:00 12 7-15 (mmol /L) Final Glucose 12/01/2024 04:57:00 155 Above high normal 70 -120 (mg/dL) Final Calcium 12/01/2024 04:57:00 8.6 8.4-10.2 ( mg/dL) Final Performing Location LABORATORY [facility] [place] - [address] [place] [address]
--- OUTSIDE RECORDS SUMMARY | 2024-12-10 14:04 | External Medical Summary ---
Author Name Unknown Address Unknown Organization [id number]:LABORATORY [facility] [place] - [facility] [address] [facility] [address] [place] [address] Laboratory Report Ordering Provider Test Date Status ANDREA AYON 11/29/2024 05:31:00 Final Observation Date Value Abnormality Reference (Units ) Status WBC, Total 11/29/2024 05:31:00 8.38 4.00-10.80 (K/uL) Final RBC 11/29/2024 05:31:00 3.72 4.50-5.25 (M/uL) Final Hemoglobin 11/29/2024 05:31:00 11.0 Below low normal 14.0-16.8 (g/dL) Final HCT 11/29/2024 05:31:00 33.9 Below low normal 40.0-48.4 (%) Final MCV 11/29/2024 05:31:00 91.1 82.0-99.5 (fL) Final MCH 11/29/2024 05:31:00 29.6 27.0-34.0 (pg) Final MCHC 11/29/2024 05:31:00 32.4 32.0-36.0 (g/dL) Final RDW 11/29/2024 05:31:00 14.4 11.5-15.5 (%) Final Platelets 11/29/2024 05:31:00 213 140-400 (K/uL) Final MPV 11/29/2024 05:31:00 11.7 6.6-11.1 (fL) Final Nucleated erythrocytes/100 leukocytes [Ratio] in Blood by Automated count 11/29/2024 05:31:00 0 <=0 (/100 WBCs) Final Performing Location LABORATORY [facility] [place] - [address] [place] [address]
--- OUTSIDE RECORDS SUMMARY | 2024-12-10 14:04 | External Medical Summary ---
Author Name Unknown Address Unknown Organization [id number]:[place] [facility] [place] [address] [place] [address] Laboratory Report Ordering Provider Test Date Status ALEXUS FORD 11/28/2024 14:52:00 Final Observation Date Value Abnormality Reference (Units ) Status Heparin, unfractionated level 11/28/2024 14:52:00 0.49 Above high normal <0.10 (IU/mL) Final Anti-Xa [...] [facility] [place] [facility] [place] [address] [place] [address]
--- OUTSIDE RECORDS SUMMARY | 2024-12-10 14:04 | External Medical Summary | Summary of Care ---
Author Name Unknown Organization [facility] Address [address] [place] [address] Phone [phone] Care Team Providers Care Teletypewriter Operator Name Role Phone Tai Bal PA-C Primary Care Provide r Reason for Visit * Auth/Cert Specialty Diagnoses / Procedures Referred By Contbrandon t Referred To Contact Diagnoses new aphasia, s/p fall 11/22/24 Diomedes Rico MD [address] [place] [address] Phone: tel: fax: Admissions, [facility] [place] [address] [place] [address] Referral ID Status Reason Start Date Expiration Date Visits Re quested Visits Authorized [id number] Encounter Details Date Type Department Care Team (Latest Contact Info) Description 11/30/2024 3:26 PM EDT - 11/30/2024 11:59 PM EDT Hospital Encounter Cardiac Studies [facility] [address], [place] [phone] Discharge Disposition: Home - Self Care Allergies Active Allergy Reactions Criticality Noted Date Comments Bee Venom 01/21/2022 Cephalosporins 01/16/2004 hives Penicillin G 2019 documented as of this encounter (statuses as of 12/01/2024) Medications amLODIPine Besylate 10 MG Oral Tablet (Norvasc) Suspended Eliquis 5 MG Oral Tablet 2 Suspended Benazepril HCl 20 MG Oral Tablet (Lotensin) Suspended Simvastatin 20 MG Oral Tablet (Zocor) 2 Suspended Melatonin 5 MG Oral TabletIndication s:Obstructive sleep apnea of adult,Class 2 severe obesity [...] 1 Tablet by mouth in the morning. Suspended documented as of this encounter (statuses as of 12/01/2024) Active Problems Problem Noted Date Diagnosed Date Gait abnormality 11/25/2024 Impaired mobility and ADLs [...] as of this encounter (statuses as of 12/01/2024) Resolved Problems Problem Noted Date Diagnosed Date Resolved Date Respiratory failure without hypercapnia 11/26/2024 11/26/2024 Pseudoaneurysm following procedure 11/24/2024 12/01/2024 documented as of this encounter (statuses as of 12/01/2024) Social History Tobacco Use Types Packs/Day Years [...] on file documented as of this encounter Miscellaneous Notes * Ancillary Progress Note - Parth Rhoades RN - 11/30/2024 3:30 PM EDT LI is performed at the bedside in PACU with Anesthesia providing sedation and monitoring. No complications. Echo report pending. Patient to be recovered in PACU. documented in this encounter Plan of Treatment Upcoming Encounters Date Type Department Care Team (Late st Contact Info) Description 01/03/2025 1:30 PM EDT Office Visit Neurosurgery, [place] [address], [place] [phone] Peter Blas MD [address], [place] [phone] 01/03/2025 2:20 PM EDT Telemedicine Neurology [address] [place] [address] Migel Young MD [address] [place] [address] Health Maintenance Due Date Last Done Comments [...] (Season Ended) 2025 07/26/2019, 07/26/2019, 06/10/2018 GFR 12/01/2025 12/01/2024, 04/0 10/2024, 11/29/2024, Additional history exists Cologuard 03/23/2027 03/23/2024, 03/17/2024 Colorectal Cancer Screening 03/23/2027 Diabetes Screening 12/02/2027 12/01/2024, 0 11/30/2024, 11/29/2024, Additional history exists HPV (Gardasil) Vaccine Aged [...] Procedure Name Priority Date/Time Associated Diagnosis Comments TRANSESOPHAGEAL ECHO (COMPLETE) Routine 11/30/2024 3:35 PM EDT Valvular heart disease documented in this encounter Results * TRANSESOPHAGEAL ECHO (COMPLETE) (11/30/2024 3:35 PM EDT) LEFT VENTRICULAR EJECTION FRACTION 50 % [facility] 11/30/2024 2:23 PM EDT us Caroline Hwang MD ECHOCARDIOLOGY Final Result [facility] documented in this encounter Advance Directives * Full Code (Latest Code Status on File) Date Activated Date Inactivated Comments 11/24/2024 1:12 AM This order ref lects the patients wishes and were consensually agreed upon. Question Answer Comments Discussion of Advance Direct loli occurred with: Not Discussed due to patient's condition Care Teams Teletypewriter Operator Relationship Specialty Start Date End Date Tai Bal PA-C [address] [place] [id number] PCP - General Physician Disbursement Clerk 11/29/24 documented as of this encounter
--- OUTSIDE RECORDS SUMMARY | 2024-12-10 14:04 | External Medical Summary ---
Author Name Unknown Address Unknown Organization : Laboratory Report Ordering Provider Test Date Status ALEXUS FORD 11/30/2024 11:39:57 Final Observation Date Value Abnormality Reference (Units ) Status Glucose Point of Care 11/30/2024 11:39:57 131 Above high normal 70-120 (mg/dL) Final Performing Location
--- OUTSIDE RECORDS SUMMARY | 2024-12-10 14:04 | External Medical Summary ---
Author Name Unknown Address Unknown Organization [id number]:LABORATORY [facility] [place] - [address] [place] [address] Laboratory Report Ordering Provider Test Date Status ALEXUS FORD 12/01/2024 17:52:00 Final Observation Date Value Abnormality Reference (Units ) Status Heparin, unfractionated level 12/01/2024 17:52:00 0.46 Above high normal <0.10 (IU/mL) Final [...] medicine with any questions. Performing Location LABORATORY [facility] [place] - [facility] [address] [place] [address]
--- OUTSIDE RECORDS SUMMARY | 2024-12-10 14:04 | External Medical Summary ---
Author Name Unknown Address Unknown Organization : Laboratory Report Ordering Provider Test Date Status ALEXUS FORD 11/29/2024 16:42:30 Final Observation Date Value Abnormality Reference (Units ) Status Glucose Point of Care 11/29/2024 16:42:30 146 Above high normal 70-120 (mg/dL) Final Performing Location
--- OUTSIDE RECORDS SUMMARY | 2024-12-10 14:04 | External Medical Summary ---
Author Name Unknown Address Unknown Organization [id number]:LABORATORY [facility] [place] - [facility] [address] [place] [address] Laboratory Report Ordering Provider Test Date Status ANDREA AYON 12/01/2024 04:57:00 Final Observation Date Value Abnormality Reference (Units ) Status WBC, Total 12/01/2024 04:57:00 9.78 4.00-10.80 (K/uL) Final RBC 12/01/2024 04:57:00 3.54 4.50-5.25 (M/uL) Final Hemoglobin 12/01/2024 04:57:00 10.4 Below low normal 14.0-16.8 (g/dL) Final HCT 12/01/2024 04:57:00 32.5 Below low normal 40.0-48.4 (%) Final MCV 12/01/2024 04:57:00 91.8 82.0-99.5 (fL) Final MCH 12/01/2024 04:57:00 29.4 27.0-34.0 (pg) Final MCHC 12/01/2024 04:57:00 32.0 32.0-36.0 (g/dL) Final RDW 12/01/2024 04:57:00 14.6 11.5-15.5 (%) Final Platelets 12/01/2024 04:57:00 242 140-400 (K/uL) Final MPV 12/01/2024 04:57:00 10.9 6.6-11.1 (fL) Final Nucleated erythrocytes/100 leukocytes [Ratio] in Blood by Automated count 12/01/2024 04:57:00 0 <=0 (/100 WBCs) Final Performing Location LABORATORY [facility] [place] - [facility] [address] [place] [address]
--- OUTSIDE RECORDS SUMMARY | 2024-12-10 14:04 | External Medical Summary ---
Author Name Unknown Address Unknown Organization : Laboratory Report Ordering Provider Test Date Status ALEXUS FORD 11/29/2024 21:36:25 Final Observation Date Value Abnormality Reference (Units ) Status Glucose Point of Care 11/29/2024 21:36:25 131 Above high normal 70-120 (mg/dL) Final Performing Location
--- OUTSIDE RECORDS SUMMARY | 2024-12-10 14:04 | External Medical Summary ---
Author Name Unknown Address Unknown Organization : Laboratory Report Ordering Provider Test Date Status ALEXUS FORD 12/01/2024 07:36:28 Final Observation Date Value Abnormality Reference (Units ) Status Glucose Point of Care 12/01/2024 07:36:28 130 Above high normal 70-120 (mg/dL) Final Performing Location
--- OUTSIDE RECORDS SUMMARY | 2024-12-10 14:04 | External Medical Summary ---
Author Name Unknown Address Unknown Organization K01:[place] [facility] [place] [facility] [address] [facility] [address] [place] [address] Laboratory Report Ordering Provider Test Date Status ANDREA AYON 11/30/2024 05:12:00 Final Observation Date Value Abnormality Reference (Units ) Status WBC, Total 11/30/2024 05:12:00 9.38 4.00-10.80 (K/uL) Final RBC 11/30/2024 05:12:00 3.81 4.50-5.25 (M/uL) Final Hemoglobin 11/30/2024 05:12:00 11.4 Below low normal 14.0-16.8 (g/dL) Final HCT 11/30/2024 05:12:00 35.5 Below low normal 40.0-48.4 (%) Final MCV 11/30/2024 05:12:00 93.2 82.0-99.5 (fL) Final MCH 11/30/2024 05:12:00 29.9 27.0-34.0 (pg) Final MCHC 11/30/2024 05:12:00 32.1 32.0-36.0 (g/dL) Final RDW 11/30/2024 05:12:00 14.5 11.5-15.5 (%) Final Platelets 11/30/2024 05:12:00 240 140-400 (K/uL) Final MPV 11/30/2024 05:12:00 11.9 6.6-11.1 (fL) Final Nucleated erythrocytes/100 leukocytes [Ratio] in Blood by Automated count 11/30/2024 05:12:00 0 <=0 (/100 WBCs) Final Performing Location [place] [facility] [place] [address] [place] [address]
--- OUTSIDE RECORDS SUMMARY | 2024-12-10 14:04 | External Medical Summary ---
Author Name Unknown Address Unknown Organization : Laboratory Report Ordering Provider Test Date Status ALEXUS FORD 11/30/2024 21:20:10 Final Observation Date Value Abnormality Reference (Units ) Status Glucose Point of Care 11/30/2024 21:20:10 194 Above high normal 70-120 (mg/dL) Final Performing Location
--- OUTSIDE RECORDS SUMMARY | 2024-12-10 14:04 | External Medical Summary ---
Author Name Unknown Address Unknown Organization : Laboratory Report Ordering Provider Test Date Status ALEUXS FORD 12/01/2024 16:58:55 Final Observation Date Value Abnormality Reference (Units ) Status Glucose Point of Care 12/01/2024 16:58:55 125 Above high normal 70-120 (mg/dL) Final Performing Location
--- OUTSIDE RECORDS SUMMARY | 2024-12-10 14:04 | External Medical Summary ---
Author Name Unknown Address Unknown Organization K01:[place] [facility] [place] [address] [place] [address] Laboratory Report Ordering Provider Test Date Status ALEXUS FORD 12/01/2024 04:57:00 Final Observation Date Value Abnormality Reference (Units ) Status Heparin, unfractionated level 12/01/2024 04:57:00 0.67 Above high normal <0.10 (IU/mL) Final [...] medicine with any questions. Performing Location [facility] [place] - [facility] [address] [place] [address]
--- OUTSIDE RECORDS SUMMARY | 2024-12-10 14:04 | External Medical Summary ---
Author Name Unknown Address Unknown Organization K01:LABORATORY [facility] [place] - [address] [place] [address] Laboratory Report Ordering Provider Test Date Status ALEXUS FORD 11/30/2024 10:59:00 Final Observation Date Value Abnormality Reference (Units ) Status Heparin, unfractionated level 11/30/2024 10:59:00 0.51 Above high normal <0.10 (IU/mL) Final Anti-Xa [...] LABORATORY [facility] [place] - [facility] [address] [place] [address]
--- OUTSIDE RECORDS SUMMARY | 2024-12-10 14:04 | External Medical Summary | Summary of Care ---
Author Name Unknown Organization [facility] Address [address] [place] [address] Phone [phone] Care Team Providers Care Associate Director Of Nursing Name Role Phone Tai Bal PA-C Primary Care Provide r Reason for Visit * Auth/Cert Specialty Diagnoses / Procedures Referred By Contbrandon t Referred To Contact Diagnoses new aphasia, s/p fall 11/22/24 Diomedes Rico MD [address] [place] [address] Phone: tel: fax: Admissions, [facility] [place] [address] [place] [address] Referral ID Status Reason Start Date Expiration Date Visits Re quested Visits Authorized [id number] Encounter Details Date Type Department Care Team (Latest Contact Info) Description 11/28/2024 11:14 AM EDT - 11/28/2024 11:59 PM EDT Hospital Encounter Cardiac Studies [facility] [address] [place] [address] Discharge Disposition: Home - Self Care Allergies Active Allergy Reactions Criticality Noted Date Comments Bee Venom 01/21/2022 Cephalosporins 01/16/2004 hives Penicillin G 2019 documented as of this encounter (statuses as of 11/29/2024) Medications amLODIPine Besylate 10 MG Oral Tablet [...] as of this encounter (statuses as of 11/29/2024) Active Problems Problem Noted Date Diagnosed Date Gait abnormality 11/25/2024 Impaired mobility and ADLs 11/25/2024 Acute ischemic left MCA stroke 11/24/2024 History of ischemic left MCA stroke 11/24/2024 Expressive aphasia 11/24/2024 On continuous oral anticoagulation 11/24/2024 Pseudoaneurysm following procedure 11/24/2024 S/P AVR (aortic valve replacement) 2019 Embolic stroke 06/10/2018 Left sided cerebral hemisphere cerebrovascular a ccident 06/10/2018 Essential hypertension 06/10/2018 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 Other hyperlipidemia 06/10/2018 Right hemiparesis 06/10/2018 documented as of this encounter (statuses as of 11/29/2024) Resolved Problems Problem Noted Date Diagnosed Date Resolved Date Respiratory failure without hypercapnia 11/26/2024 11/26/2024 documented as of this encounter (statuses as of 11/29/2024) Social History Tobacco Use Types Packs/Day Years [...] Sign Reading Time Taken Comments Blood Pressure 133/79 11/28/2024 2:31 PM EDT Pulse 88 11/28/2024 2:31 PM EDT Temperature - - Respiratory Rate 15 11/28/2024 2:31 PM EDT Oxygen Saturation 98% 11/28/2024 2:31 PM EDT Inhaled Oxygen Concentration - - Weight - - Height - - Body Mass Index - - documented in this encounter Nursing Notes * Parth Rhoades RN - 11/28/2024 2:[address] Mathews to bedside to assess patient. Appropriate to return to origin unit. Transported on hospital bed with patient transport. VSS on room air. * Parth Rhoades RN - 11/28/2024 2:00 PM EDT Unable to tolerate procedure. Physician team to determine alternatives. documented in this encounter Miscellaneous Notes * Sedation Note - Walter Mathews DO - 11/28/2024 11:15 AM EDT SEDATION NOTE Indication: The patient is a(n) 54 year old male with history of mechanical AVR who presented with stroke . Location: [facility] Sedating physician: Dr. Mayfield Procedure physician: Dr. Mayfield Procedure(s) Performed: LI, aborted Sedation was accomplished using versed and fentanyl administered as boluses without continuous infusion. A total of 3.5mg of versed and 150mcg of fentanyl were administered. Any and all anesthetic medications were delivered under the direct supervision of a provider. Actual level of sedation: Moderate Patient tolerated procedure well. Vitals and oxygen saturations stable throughout. Adverse Outcome(s) during the procedure: None Sedation Start Time: 1336 Sedation End Time: 1434 Post Sedation Evaluation: Cardiovascular status: acceptable, BP returned to baseline, and hemodynamically stable Level of consciousness: awake and alert Airway patency: patent Distress - NAD Hydration status - well hydrated Nausea/vomiting - not present Pain Evaluation Pain Assessment Flowsheet Row Most Recent Value Pain Assessment Scale [facility] Adult Scale 0-10 (18 years and older) Pain Score 0 (no pain) Vital Signs: Temp: 37.1 °C (98.8 °F) (11/28 605) BP: 133/79 (11/28 143) Pulse: 88 (11/28 1430) Resp: 15 (11/28 1430) SpO2: 98 % (11/28 1430) I have personally examined the patient, prescribed the necessary medications as charted, and certify that Tariq Sawant is recovered for safe discharge from my face to face care. Cosigned by Travis [place]field DO at 11/28/2024 2:59 PM EDT * Pre-Sedation Assessment - Walter Mathews DO - 11/28/2024 11:15 AM EDT PRE-SEDATION ASSESSMENT PRE-SEDATION ASSESSMENT: Transesophageal Echocardiogram Level of sedation planned: Moderate Patient's allergies reviewed: Yes H&P Review / Interval Note Documentation: I have reviewed the H&P previously performed, examined the patient today, and there are no new findings. Difficulty with sedation / anesthesia: No Sleep apnea: No History of snoring: No History of difficult intubation: No Decreased ROM neck flexion/extension: No Tracheal deviation: No Decreased ability to open mouth / TMJ: No Loose teeth / dentures / partial: No Congenital deformities / abnormalities: No Dysphagia: No Mallampati Classification: III - soft palate, base of uvula visible Chest: Clear Heart: Regular Rhythm Adequate Vascular Access: Yes ASA Risk Stratification (Select One): ASA 2 - Mild systemic disease, no functional limitations The patient was identified and the procedure verified: Yes The patient was reevaluated immediately prior to the sedation: 11/28/2024 1:33 PM Cosigned by Travis Mayfield DO at 11/28/2024 2:13 PM EDT documented in this encounter Plan of Treatment Upcoming Encounters Date Type Department Care Team (Latest Contact Info) Description 11/30/2024 2:00 PM EDT - 11/30/2024 2:37 PM EDT Surgery OR C, OPERATING ROOM [facility], [facility] [address] [place] [address] [facility] [place] [address], [place] [phone] ECHOCARDIOGRAPHY, TRANSESOPHAGEAL; INCLUDING PROBE PLACEMENT, IMAGE ACQUISITION, INTERPRETATION AND REPORT 01/03/2025 1:30 PM EDT Office Visit Neurosurgery, [place] [address] [facility] [place], [place] [phone] Peter Blas MD [address], [place] [phone] 01/03/2025 2:20 PM EDT Telemedicine Neurology [address] [place] [address] Migel Young MD [address], [place] [phone] Scheduled Procedures Name Priority Associated Diagnoses Date/Ti me ECHOCARDIOGRAPHY, TRANSESOPHAGEAL; INCLUDING PROBE PLACEMENT, IMAGE ACQUISITION, INTERPRETATION AND REPORT Valvular heart disease 11/30/2024 2:00 PM EDT Health Maintenance Due Date Last Done Comments [...] (Season Ended) 2025 07/26/2019, 07/26/2019, 06/10/2018 GFR 11/29/2025 11/29/2024, 10/31, 11/27/2024, Additional history exists Cologuard 03/23/2027 03/23/2024, 03/17/2024 Colorectal Cancer Screening 03/23/2027 Diabetes Screening 11/30/2027 11/29/2024, 0 11/28/2024, 11/27/2024, Additional history exists HPV (Gardasil) Vaccine Aged [...] Associated Diagnosis Comments TRANSESOPHAGEAL ECHO (COMPLETE) Routine 11/28/2024 2:38 PM EDT Valvular heart disease documented in this encounter Visit Diagnoses Diagnosis S/P AVR (aortic valve replacement)- Primary Heart valve replaced by other means Valvular heart disease Endocarditis, valve unspecified, unspecified cause documented in this encounter Administered Medications Inactive Administered Medications - up to 3 most recent administrations Medication Order MAR Action Action Date Dose Rate Site benzocaine (topical) (Hurricaine) 20 % spray Topical, ONCE, On Thu11/28/24 at 1200, For 1 dose, To be used for INTUBATION ONLY, not for sore throat. Each unit dose contains 0.5 ml, Cardiac Studies_HODHOVIndications:S/P AVR (aortic valve replacement) Given 11/28/2024 1:33 PM EDT 1 Each fentaNYL (PF) inj ONCE PRN NARRATOR, Starting on Thu11/28/24 at 1336, Until Thu11/28/24 at 1357 Given 11/28/2024 1:57 PM EDT 25 mcg Given 11/28/2024 1:49 PM EDT 25 mcg Given 11/28/2024 1:45 PM EDT 25 mcg midazolam (Versed) 2 MG/2ML inj ONCE PRN NARRATOR, Starting on 11/28/24 at 1336, Until Thu11/28/24 at 1357 Given 11/28/2024 1:57 PM EDT 0.5 mg Given 11/28/2024 1:49 PM EDT 1 mg Given 11/28/2024 1:45 PM EDT 0.5 mg documented in this encounter Advance Directives * Full Code (Latest Code Status on File) Date Activated Date Inactivated Comments 11/24/2024 1:12 AM This order ref lects the patients wishes and were consensually agreed upon. Question Answer Comments Discussion of Advance Direct loli occurred with: Not Discussed due to patient's condition Care Teams Associate Director Of Nursing Relationship Specialty Start Date End Date Tai Bal PA-C PCP - General Physician Certified Nurse Midwife 05/16/22 documented as of this encounter
--- OUTSIDE RECORDS SUMMARY | 2024-12-10 14:04 | External Medical Summary ---
Author Name Unknown Address Unknown Organization K01:LABORATORY [facility] - [address] [place] [address] Laboratory Report Ordering Provider Test Date Status ANDREA AYON 11/30/2024 05:12:00 Final Observation Date Value Abnormality Reference (Units ) Status Phosphate 11/30/2024 05:12:00 4.3 2.5-4.8 (m g/dL) Final Performing Location LABORATORY [facility] - [address] [place] [address]
--- OUTSIDE RECORDS SUMMARY | 2024-12-10 14:04 | External Medical Summary ---
Author Name Unknown Address Unknown Organization K01:LABORATORY [facility] [place] - [facility] [address] [place] [address] Laboratory Report Ordering Provider Test Date Status ANDREA AYON 12/02/2024 05:29:00 Final Observation Date Value Abnormality Reference (Units ) Status WBC, Total 12/02/2024 05:29:00 8.09 4.00-10.80 (K/uL) Final RBC 12/02/2024 05:29:00 3.52 4.50-5.25 (M/uL) Final Hemoglobin 12/02/2024 05:29:00 10.4 Below low normal 14.0-16.8 (g/dL) Final HCT 12/02/2024 05:29:00 32.3 Below low normal 40.0-48.4 (%) Final MCV 12/02/2024 05:29:00 91.8 82.0-99.5 (fL) Final MCH 12/02/2024 05:29:00 29.5 27.0-34.0 (pg) Final MCHC 12/02/2024 05:29:00 32.2 32.0-36.0 (g/dL) Final RDW 12/02/2024 05:29:00 14.6 11.5-15.5 (%) Final Platelets 12/02/2024 05:29:00 259 140-400 (K/uL) Final MPV 12/02/2024 05:29:00 11.2 6.6-11.1 (fL) Final Nucleated erythrocytes/100 leukocytes [Ratio] in Blood by Automated count 12/02/2024 05:29:00 0 <=0 (/100 WBCs) Final Performing Location LABORATORY [facility] [place] - [address] [place] [address]
--- OUTSIDE RECORDS SUMMARY | 2024-12-10 14:04 | External Medical Summary ---
Author Name Unknown Address Unknown Organization : Laboratory Report Ordering Provider Test Date Status ALEXUS FORD 11/28/2024 16:56:17 Final Observation Date Value Abnormality Reference (Units ) Status Glucose Point of Care 11/28/2024 16:56:17 144 Above high normal 70-120 (mg/dL) Final Performing Location
--- OUTSIDE RECORDS SUMMARY | 2024-12-10 14:04 | External Medical Summary ---
Author Name Unknown Address Unknown Organization K01:LABORATORY [facility] [place] - [address] [place] [address] Laboratory Report Ordering Provider Test Date Status ALEXUS FORD 11/29/2024 18:46:00 Final Observation Date Value Abnormality Reference (Units ) Status Heparin, unfractionated level 11/29/2024 18:46:00 0.54 Above high normal <0.10 (IU/mL) Final Anti-Xa [...] questions. Performing Location LABORATORY [facility] [place] - [facility] [address] [place] [address]
--- OUTSIDE RECORDS SUMMARY | 2024-12-10 14:04 | External Medical Summary ---
Author Name Unknown Address Unknown Organization K01:LABORATORY [place] - [facility] [address] [place] [address] Laboratory Report Ordering Provider Test Date Status ANDREA AYON 12/01/2024 04:57:00 Final Warfarin Therapy
INR: 2 .0-3.0 conventional anticoagulation
INR: 2.5- 3.5 high intensity anticoagulation Observation Date Value Abnormality Reference (Units ) Status PT 12/01/2024 04:57:00 14.1 11.6-15.2 (seconds) Final INR 12/01/2024 04:57:00 1.1 0.8-1.2 Final Performing Location LABORATORY [place] - [address] [place] [address]
--- OUTSIDE RECORDS SUMMARY | 2024-12-10 14:04 | External Medical Summary ---
Author Name Unknown Address Unknown Organization K01:[place] [facility] [place] [address] [place] [address] Laboratory Report Ordering Provider Test Date Status ALEXUS FORD 11/29/2024 12:27:00 Final Observation Date Value Abnormality Reference (Units ) Status Heparin, unfractionated level 11/29/2024 12:27:00 0.53 Above high normal <0.10 (IU/mL) Final Anti-Xa [...] medicine with any questions. Performing Location [place] [facility] [place] [facility] [address] [place] [address]
--- OUTSIDE RECORDS SUMMARY | 2024-12-10 14:05 | External Medical Summary ---
Author Name Unknown Address Unknown Organization : Laboratory Report Ordering Provider Test Date Status GEREMIAS RAIN 11/27/2024 07:52:10 Final Observation Date Value Abnormality Reference (Units ) Status Glucose Point of Care 11/27/2024 07:52:10 142 Above high normal 70-120 (mg/dL) Final Performing Location
--- OUTSIDE RECORDS SUMMARY | 2024-12-10 14:05 | External Medical Summary ---
Author Name Unknown Address Unknown Organization : Laboratory Report Ordering Provider Test Date Status FELICITA HUMMEL 11/26/2024 12:50:10 Final Observation Date Value Abnormality Reference (Units ) Status Glucose Point of Care 11/26/2024 12:50:10 133 Above high normal 70-120 (mg/dL) Final Performing Location
--- OUTSIDE RECORDS SUMMARY | 2024-12-10 14:05 | External Medical Summary ---
Author Name Unknown Address Unknown Organization K01:[place] [facility] [address] [place] [address] Laboratory Report Ordering Provider Test Date Status SALLY ROMEO 11/27/2024 16:05:00 Final Observation Date Value Abnormality Reference (Units ) Status Bacteria identified in Specimen by Culture 11/27/2024 16:05:00 No growth Final Test: Culture, Blood
Sp ecimen Source: Blood, Venous
Specimen Type: Blood
Specimen Date: 11/27/2024 1605
Result Date: 12/02/2024 1701
Result Status: Final result
Resulting Lab: [place] [facility] [facility] [place]
[address]
[place] [address]

CULTURE

No growth

null Performing Location [place] [facility] [address] [place] [address]
--- OUTSIDE RECORDS SUMMARY | 2024-12-10 14:05 | External Medical Summary ---
Author Name Unknown Address Unknown Organization K01:LABORATORY [facility] [place] - [facility] [place] [address] [place] [address] Laboratory Report Ordering Provider Test Date Status TIM CASTAÑEDA 11/26/2024 12:21:00 Final Observation Date Value Abnormality Reference (Units ) Status WBC, Total 11/26/2024 12:21:00 9.51 4.00-10.80 (K/uL) Final RBC 11/26/2024 12:21:00 3.67 4.50-5.25 (M/uL) Final Hemoglobin 11/26/2024 12:21:00 10.9 Below low normal 14.0-16.8 (g/dL) Final HCT 11/26/2024 12:21:00 32.8 Below low normal 40.0-48.4 (%) Final MCV 11/26/2024 12:21:00 89.4 82.0-99.5 (fL) Final MCH 11/26/2024 12:21:00 29.7 27.0-34.0 (pg) Final MCHC 11/26/2024 12:21:00 33.2 32.0-36.0 (g/dL) Final RDW 11/26/2024 12:21:00 14.5 11.5-15.5 (%) Final Platelets 11/26/2024 12:21:00 150 140-400 (K/uL) Final MPV 11/26/2024 12:21:00 11.9 6.6-11.1 (fL) Final Nucleated erythrocytes/100 leukocytes [Ratio] in Blood by Automated count 11/26/2024 12:21:00 0 <=0 (/100 WBCs) Final Performing Location LABORATORY [facility] [place] - [address] [place] [address]
--- OUTSIDE RECORDS SUMMARY | 2024-12-10 14:05 | External Medical Summary ---
Author Name Unknown Address Unknown Organization K01:[place] [facility] [place] [facility] [address] [facility] [address] Laboratory Report Ordering Provider Test Date Status SAL PEARCE 11/26/2024 05:55:00 Final Observation Date Value Abnormality Reference (Units ) Status WBC, Total 11/26/2024 05:55:00 8.64 4.00-10.80 (K/uL) Final RBC 11/26/2024 05:55:00 3.48 4.50-5.25 (M/uL) Final Hemoglobin 11/26/2024 05:55:00 10.3 Below low normal 14.0-16.8 (g/dL) Final HCT 11/26/2024 05:55:00 31.6 Below low normal 40.0-48.4 (%) Final MCV 11/26/2024 05:55:00 90.8 82.0-99.5 (fL) Final MCH 11/26/2024 05:55:00 29.6 27.0-34.0 (pg) Final MCHC 11/26/2024 05:55:00 32.6 32.0-36.0 (g/dL) Final RDW 11/26/2024 05:55:00 14.7 11.5-15.5 (%) Final Platelets 11/26/2024 05:55:00 118 Below low normal 140-400 (K/uL) Final MPV 11/26/2024 05:55:00 12.4 6.6-11.1 (fL) Final Nucleated erythrocytes/100 leukocytes [Ratio] in Blood by Automated count 11/26/2024 05:55:00 0 <=0 (/100 WBCs) Final Performing Location [place] [facility] [place] [address] [place] [address]
--- OUTSIDE RECORDS SUMMARY | 2024-12-10 14:05 | External Medical Summary | Summary of Care ---
Author Name Unknown Organization [facility] Address [address] [place] [address] Phone [phone] Care Team Providers Care Blending Machine Feeder Name Role Phone Tai Bal PA-C Primary Care Provide r Reason for Visit * Reason Comments Retrieval [facility] ED bed [address] [facility] [place] 26 * Auth/Cert Specialty Diagnoses / Procedures Referred By Contac t [facility] [address] [place] [address] Referral ID Status Reason Start Date Expiration Date Visits Re quested Visits Authorized [id number] Encounter Details Date Type Department Care Team (Late st Contact Info) Description 11/23/2024 9:05 PM EDT [facility]ation [facility] [address] [place] [address] 4, [facility] [address], [place] [id number] Embolic stroke (HCC)* Allergies Active Allergy Reactions Criticality Noted Date Comments Bee Venom 01/21/2022 Cephalosporins 01/16/2004 hives Penicillin G 2019 documented as of this encounter (statuses as of 11/24/2024) Medications EFFEXOR XR 37.5 MG OR CP24 1 tablet BID 30 5 4 Suspended TOPROL XL 50 MG OR TB24 1 TABLET DAILY 30 0 4 Suspended amLODIPine Besylate 10 MG Oral Tablet (Norvasc) Suspended Eliquis 5 MG Oral Tablet 2 Suspended Benazepril HCl 20 MG Oral Tablet (Lotensin) Suspended hydrOXYzine HCl 25 MG Oral Tablet Take by mouth . 2 Suspended Simvastatin 20 MG Oral Tablet (Zocor) [...] pm) nightly. 30 Tablet 1 2 Suspended documented as of this encounter (statuses as of 11/24/2024) Active Problems Problem Noted Date Diagnosed Date Acute ischemic left MCA stroke 11/24/2024 History of ischemic left MCA stroke 11/24/2024 Expressive aphasia 11/24/2024 On continuous oral anticoagulation 11/24/2024 Pseudoaneurysm following procedure 11/24/2024 H/O mitral valve replacement with mechanical katharine ve 2019 Embolic stroke 06/10/2018 Left sided cerebral hemisphere cerebrovascular a ccident 06/10/2018 Essential hypertension 06/10/2018 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 Other hyperlipidemia 06/10/2018 Right hemiparesis 06/10/2018 documented as of this encounter (statuses as of 11/24/2024) Social History Tobacco Use Types Packs/Day Years [...] as of this encounter Progress Notes * Juan Carlos Vernon, EMT-P - 11/23/2024 11:55 PM EDT MEDICARE AMBULANCE INFORMATION SHEET Patient Admitted as an Inpatient: no Certifying Physician/Ordering Service:[facility] [place] [facility] ED Physician - Travis Rosales D.O. [facility] [address] [place] [address] Point of [employer] (zip code required): Hospital - [facility], [address], [place] [address] Destination (Specify Name/Address): [facility] - [address] [place] [address]; [place] [address] Patient transported to nearest facility (capable of mgmt for Pt's condition): YES Total number of Loaded Miles: 38.3 miles Mode of Transport: Air Completed by: Juan Carlos Hoskins EMT-P documented in this encounter Plan of Treatment Health Maintenance Due Date Last Done Comments [...] - season) 2024 Influenza Vaccine (FLU shot) (#1) 2024 07/26/2019, 07/26/2019, 06/10/2018 GFR 11/24/2025 11/24/2024, 10/30, 11/23/2024 Cologuard 03/23/2027 03/23/2024, 03/17/2024 Colorectal Cancer Screening 03/23/2027 Diabetes Screening 11/25/2027 11/24/2024, 0 11/24/2024, 11/24/2024, Additional history exists HPV (Gardasil) Vaccine Aged [...] as of this encounter Visit Diagnoses Diagnosis Embolic stroke (HCC)- Primary Cerebral embolism with cerebral infarction documented in this encounter Advance Directives * Full Code (Latest Code Status on File) Date Activated Date Inactivated Comments 11/24/2024 1:12 AM This order ref lects the patients wishes and were consensually agreed upon. Question Answer Comments Discussion of Advance Direct loli occurred with: Not Discussed due to patient's condition Care Teams Blending Machine Feeder Relationship Specialty Start Date End Date Tai Bal PA-C PCP - General Physician Director Medical Affairs 05/16/22 documented as of this encounter
--- OUTSIDE RECORDS SUMMARY | 2024-12-10 14:05 | External Medical Summary ---
Author Name Unknown Address Unknown Organization : Laboratory Report Ordering Provider Test Date Status BABS ELKINS 11/25/2024 05:22:42 Final Observation Date Value Abnormality Reference (Units ) Status Glucose Point of Care 11/25/2024 05:22:42 125 Above high normal 70-120 (mg/dL) Final Performing Location
--- OUTSIDE RECORDS SUMMARY | 2024-12-10 14:05 | External Medical Summary ---
Author Name Unknown Address Unknown Organization K01:LABORATORY [facility] - [address] [place] [address] Laboratory Report Ordering Provider Test Date Status ANDREA AYON 11/27/2024 03:12:00 Final Observation Date Value Abnormality Reference (Units ) Status Phosphate 11/27/2024 03:12:00 2.8 2.5-4.8 (m g/dL) Final Performing Location LABORATORY [facility] - [address] [place] [address]
--- OUTSIDE RECORDS SUMMARY | 2024-12-10 14:05 | External Medical Summary ---
Author Name Unknown Address Unknown Organization K01:[place] [facility] [place] [address] [place] [address] Laboratory Report Ordering Provider Test Date Status ANDREA AYON 11/27/2024 03:12:00 Final Warfarin Therapy
INR: 2 .0-3.0 conventional anticoagulation
INR: 2.5- 3.5 high intensity anticoagulation Observation Date Value Abnormality Reference (Units ) Status PT 11/27/2024 03:12:00 12.7 11.6-15.2 (seconds) Final INR 11/27/2024 03:12:00 0.9 0.8-1.2 Final Performing Location [place] [facility] [place] [address] [place] [address]
--- OUTSIDE RECORDS SUMMARY | 2024-12-10 14:05 | External Medical Summary ---
Author Name Unknown Address Unknown Organization : Laboratory Report Ordering Provider Test Date Status GEREMIAS RAIN 11/27/2024 16:59:32 Final Observation Date Value Abnormality Reference (Units ) Status Glucose Point of Care 11/27/2024 16:59:32 132 Above high normal 70-120 (mg/dL) Final Performing Location
--- OUTSIDE RECORDS SUMMARY | 2024-12-10 14:05 | External Medical Summary ---
Author Name Unknown Address Unknown Organization : Laboratory Report Ordering Provider Test Date Status FELICITA HUMMEL 11/26/2024 08:00:17 Final Observation Date Value Abnormality Reference (Units ) Status Glucose Point of Care 11/26/2024 08:00:17 145 Above high normal 70-120 (mg/dL) Final Performing Location
--- OUTSIDE RECORDS SUMMARY | 2024-12-10 14:05 | External Medical Summary ---
Author Name Unknown Address Unknown Organization K01:LABORATORY [facility] [place] - [facility] [address] [place] [address] Laboratory Report Ordering Provider Test Date Status ANDREA AYON 11/28/2024 05:51:00 Final Observation Date Value Abnormality Reference (Units ) Status BUN 11/28/2024 05:51:00 13 6-20 (mg/dL) Final Creatinine 11/28/2024 05:51:00 1.1 0.6-1.2 (mg/dL) Final Glomerular filtration rate/1.73 sq M.predicted [Volume Rate/Area] in Serum, Plasma or Blood by Creatinine-based formula (CKD-EPI) 11/28/2024 05:51:00 84 >=60 (mL/min) Final eGFR is calculated based on the CKD-EPI 2020 equation. Sodium 11/28/2024 05:51:00 139 135-146 (m mol/L) Final Potassium 11/28/2024 05:51:00 4.0 3.5-5.1 (m mol/L) Final Cl 11/28/2024 05:51:00 103 98-107 (mm ol/L) Final CO2 11/28/2024 05:51:00 26 22-32 (mmo l/L) Final Anion gap 11/28/2024 05:51:00 10 7-15 (mmol /L) Final Glucose 11/28/2024 05:51:00 183 Above high normal 70 -120 (mg/dL) Final Calcium 11/28/2024 05:51:00 8.4 8.4-10.2 ( mg/dL) Final Performing Location LABORATORY [facility] [place] - [address] [place] [address]
--- OUTSIDE RECORDS SUMMARY | 2024-12-10 14:05 | External Medical Summary ---
Author Name Unknown Address Unknown Organization K01:[place] [facility] [place] [facility] [address] [facility] [address] Laboratory Report Ordering Provider Test Date Status SAL PEARCE 11/25/2024 05:20:17 Final Observation Date Value Abnormality Reference (Units ) Status WBC, Total 11/25/2024 05:20:17 8.79 4.00-10.80 (K/uL) Final RBC 11/25/2024 05:20:17 3.33 4.50-5.25 (M/uL) Final Hemoglobin 11/25/2024 05:20:17 9.9 Below low normal 14.0-16.8 (g/dL) Final HCT 11/25/2024 05:20:17 29.9 Below low normal 40.0-48.4 (%) Final MCV 11/25/2024 05:20:17 89.8 82.0-99.5 (fL) Final MCH 11/25/2024 05:20:17 29.7 27.0-34.0 (pg) Final MCHC 11/25/2024 05:20:17 33.1 32.0-36.0 (g/dL) Final RDW 11/25/2024 05:20:17 15.0 11.5-15.5 (%) Final Platelets 11/25/2024 05:20:17 116 Below low normal 140-400 (K/uL) Final MPV 11/25/2024 05:20:17 11.6 6.6-11.1 (fL) Final Nucleated erythrocytes/100 leukocytes [Ratio] in Blood by Automated count 11/25/2024 05:20:17 0 <=0 (/100 WBCs) Final Performing Location [place] [facility] [place] [address] [place] [address]
--- OUTSIDE RECORDS SUMMARY | 2024-12-10 14:05 | External Medical Summary ---
Author Name Unknown Address Unknown Organization K01:LABORATORY [facility] - [address] [place] [address] Laboratory Report Ordering Provider Test Date Status KATYA POP 11/26/2024 05:55:00 Final Observation Date Value Abnormality Reference (Units ) Status Magnesium 11/26/2024 05:55:00 1.7 1.5-2.6 (m g/dL) Final Performing Location LABORATORY [facility] - [address] [place] [address]
--- OUTSIDE RECORDS SUMMARY | 2024-12-10 14:05 | External Medical Summary ---
Author Name Unknown Address Unknown Organization : Laboratory Report Ordering Provider Test Date Status GEREMIAS RAIN 11/26/2024 20:55:30 Final Observation Date Value Abnormality Reference (Units ) Status Glucose Point of Care 11/26/2024 20:55:30 138 Above high normal 70-120 (mg/dL) Final Performing Location
--- OUTSIDE RECORDS SUMMARY | 2024-12-10 14:05 | External Medical Summary ---
Author Name Unknown Address Unknown Organization K01:LABORATORY [facility] [place] - [address] [place] [address] Laboratory Report Ordering Provider Test Date Status TIM CASTAÑEDA 11/26/2024 12:21:00 Final Warfarin Therapy
INR: 2 .0-3.0 conventional anticoagulation
INR: 2.5- 3.5 high intensity anticoagulation Observation Date Value Abnormality Reference (Units ) Status PT 11/26/2024 12:21:00 12.3 11.6-15.2 (seconds) Final INR 11/26/2024 12:21:00 0.9 0.8-1.2 Final Performing Location LABORATORY [facility] [place] - [address] [place] [address]
--- OUTSIDE RECORDS SUMMARY | 2024-12-10 14:05 | External Medical Summary | Summary of Care ---
Author Name Unknown Organization [facility] Address [address] [place] [address] Phone [phone] Care Team Providers Care Feeder Operator Automatic Name Role Phone Tai Bal PA-C Primary Care Provide r Reason for Visit * Reason Onset Date Comments Test Results 11/26/2024 Unexpected or In determinate Encounter Details Date Type Department Care Team (Late st Contact Info) Description 11/26/2024 Telephone Laboratory, [place] [address] [place] [address] Jaida Leger CRNP [address] [place] [address] Test Results (Unexpected or Indeterminate) Allergies Active Allergy Reactions Criticality Noted Date Comments Bee Venom 01/21/2022 Cephalosporins 01/16/2004 hives Penicillin G 2019 documented as of this encounter (statuses as of 11/26/2024) Medications amLODIPine Besylate 10 MG Oral Tablet [...] as of this encounter (statuses as of 11/26/2024) Active Problems Problem Noted Date Diagnosed Date [...] as of this encounter (statuses as of 11/26/2024) Social History Tobacco Use Types Packs/Day Years [...] as of this encounter Miscellaneous Notes * Telephone Encounter - Walter Hopper OSA - 11/26/2024 5:13 AM EDT Hello- The radiologist discovered an unexpected or indeterminate finding on Tariq Sawant ([id number]) andasks that you review the following report. Study Type:MRI BRAIN WITHOUT CONTRAST Date of Study: 11/25/2024 IMPRESSION 1. Small acute left MCA infarct. No acute hemorrhagic transformation or herniation. 2. Additional small to moderate chronic left MCA territory infarct. Other chronic scattered supratentorial and infratentorial multi territorial infarcts. 3. Recommend short interval non-contrast CT head follow-up. Please respond to this encounter to acknowledge receipt of this message and take responsibility to ensure this report is reviewed. Thank you, RAGINI Lyons Client Service Rep [facility] documented in this encounter Plan of Treatment Upcoming Encounters Date Type Department Care Team (Late st Contact Info) Description 01/03/2025 2:20 PM EDT Telemedicine Neurology [address] [place] [address] [phone] Migel Young MD [address] [facility] [place] [address] Health Maintenance Due Date Last Done [...] shot) (#1) 2024 07/26/2019, 07/26/2019, 06/10/2018 GFR 11/25/2025 11/25/2024, 10/30, 11/24/2024, Additional history exists Cologuard 03/23/2027 03/23/2024, 03/17/2024 Colorectal Cancer Screening 03/23/2027 Diabetes Screening 11/26/2027 11/25/2024, 0 11/24/2024, 11/24/2024, Additional history exists HPV [...] Not on filedocumented as of this encounter Advance Directives * Full Code (Latest Code Status on File) Date Activated Date Inactivated Comments 11/24/2024 1:12 AM This order ref lects the patients wishes and were consensually agreed upon. Question Answer Comments Discussion of Advance Direct loli occurred with: Not Discussed due to patient's condition Care Teams Feeder Operator Automatic Relationship Specialty Start Date End Date Tai Bal PA-C PCP - General Physician Digital Imaging Specialist 05/16/22 documented as of this encounter
--- OUTSIDE RECORDS SUMMARY | 2024-12-10 14:05 | External Medical Summary ---
Author Name Unknown Address Unknown Organization K01:LABORATORY [facility] [place] - [facility] [address] [place] [address] Laboratory Report Ordering Provider Test Date Status GEREMIAS RAIN 11/27/2024 03:12:00 Final Observation Date Value Abnormality Reference (Units ) Status Heparin, unfractionated level 11/27/2024 03:12:00 0.29 Above high normal <0.10 (IU/mL) Final Anti-Xa [...] medicine with any questions. Performing Location LABORATORY [facility] [place] - [facility] [address] [place] [address]
--- OUTSIDE RECORDS SUMMARY | 2024-12-10 14:05 | External Medical Summary ---
Author Name Unknown Address Unknown Organization K01:LABORATORY [place] [address] [place] [address] Laboratory Report Ordering Provider Test Date Status ANDREA AYON 11/27/2024 03:12:00 Final Observation Date Value Abnormality Reference (Units ) Status WBC, Total 11/27/2024 03:12:00 8.46 4.00-10.80 (K/uL) Final RBC 11/27/2024 03:12:00 3.55 4.50-5.25 (M/uL) Final Hemoglobin 11/27/2024 03:12:00 10.6 Below low normal 14.0-16.8 (g/dL) Final HCT 11/27/2024 03:12:00 32.3 Below low normal 40.0-48.4 (%) Final MCV 11/27/2024 03:12:00 91.0 82.0-99.5 (fL) Final MCH 11/27/2024 03:12:00 29.9 27.0-34.0 (pg) Final MCHC 11/27/2024 03:12:00 32.8 32.0-36.0 (g/dL) Final RDW 11/27/2024 03:12:00 14.3 11.5-15.5 (%) Final Platelets 11/27/2024 03:12:00 143 140-400 (K/uL) Final MPV 11/27/2024 03:12:00 12.1 6.6-11.1 (fL) Final Nucleated erythrocytes/100 leukocytes [Ratio] in Blood by Automated count 11/27/2024 03:12:00 0 <=0 (/100 WBCs) Final Performing Location LABORATORY [facility] [place] - [address] [place] [address]
--- OUTSIDE RECORDS SUMMARY | 2024-12-10 14:05 | External Medical Summary ---
Author Name Unknown Address Unknown Organization K01:[place] [facility] [place] [address] [place] [address] Laboratory Report Ordering Provider Test Date Status ANDREA AYON 11/28/2024 05:51:00 Final Warfarin Therapy
INR: 2 .0-3.0 conventional anticoagulation
INR: 2.5- 3.5 high intensity anticoagulation Observation Date Value Abnormality Reference (Units ) Status PT 11/28/2024 05:51:00 12.0 11.6-15.2 (seconds) Final INR 11/28/2024 05:51:00 0.9 0.8-1.2 Final Performing Location LAB[facility] [facility] [place] [address] [place] [address]
--- OUTSIDE RECORDS SUMMARY | 2024-12-10 14:05 | External Medical Summary ---
Author Name Unknown Address Unknown Organization K01:LABORATORY [facility] [place] - [address] [place] [address] Laboratory Report Ordering Provider Test Date Status EDISON VAZQUEZ 11/25/2024 14:27:00 Final Observation Date Value Abnormality Reference (Units ) Status Hemoglobin 11/25/2024 14:27:00 10.1 Below low normal 14 .0-16.8 (g/dL) Final HCT 11/25/2024 14:27:00 30.5 Below low normal 40. 0-48.4 (%) Final Performing Location LABORATORY [facility] [place] - [address] [place] [address]
--- OUTSIDE RECORDS SUMMARY | 2024-12-10 14:05 | External Medical Summary ---
Author Name Unknown Address Unknown Organization : Laboratory Report Ordering Provider Test Date Status BABS ELKINS 11/24/2024 23:46:27 Final Observation Date Value Abnormality Reference (Units ) Status Glucose Point of Care 11/24/2024 23:46:27 131 Above high normal 70-120 (mg/dL) Final Performing Location
--- OUTSIDE RECORDS SUMMARY | 2024-12-10 14:05 | External Medical Summary ---
Author Name Unknown Address Unknown Organization K01:LABORATORY [facility] [place] - [facility] [address] [place] [address] Laboratory Report Ordering Provider Test Date Status ANDREA AYON 11/28/2024 05:51:00 Final Observation Date Value Abnormality Reference (Units ) Status WBC, Total 11/28/2024 05:51:00 8.00 4.00-10.80 (K/uL) Final RBC 11/28/2024 05:51:00 3.43 4.50-5.25 (M/uL) Final Hemoglobin 11/28/2024 05:51:00 10.3 Below low normal 14.0-16.8 (g/dL) Final HCT 11/28/2024 05:51:00 31.2 Below low normal 40.0-48.4 (%) Final MCV 11/28/2024 05:51:00 91.0 82.0-99.5 (fL) Final MCH 11/28/2024 05:51:00 30.0 27.0-34.0 (pg) Final MCHC 11/28/2024 05:51:00 33.0 32.0-36.0 (g/dL) Final RDW 11/28/2024 05:51:00 14.3 11.5-15.5 (%) Final Platelets 11/28/2024 05:51:00 176 140-400 (K/uL) Final MPV 11/28/2024 05:51:00 11.8 6.6-11.1 (fL) Final Nucleated erythrocytes/100 leukocytes [Ratio] in Blood by Automated count 11/28/2024 05:51:00 0 <=0 (/100 WBCs) Final Performing Location LABORATORY [facility] [place] - [address] [place] [address]
--- OUTSIDE RECORDS SUMMARY | 2024-12-10 14:05 | External Medical Summary ---
Author Name Unknown Address Unknown Organization K01:[place] [facility] [place] [facility] [address] [place] [address] Laboratory Report Ordering Provider Test Date Status ANDREA AYON 11/27/2024 03:12:00 Final Observation Date Value Abnormality Reference (Units ) Status BUN 11/27/2024 03:12:00 12 6-20 (mg/dL) Final Creatinine 11/27/2024 03:12:00 1.0 0.6-1.2 (mg/dL) Final Glomerular filtration rate/1.73 sq M.predicted [Volume Rate/Area] in Serum, Plasma or Blood by Creatinine-based formula (CKD-EPI) 11/27/2024 03:12:00 >90 >=60 (mL/min) Final eGFR is calculated based on the CKD-EPI 2020 equation. Sodium 11/27/2024 03:12:00 136 135-146 (m mol/L) Final Potassium 11/27/2024 03:12:00 4.0 3.5-5.1 (m mol/L) Final Cl 11/27/2024 03:12:00 103 98-107 (mm ol/L) Final CO2 11/27/2024 03:12:00 22 22-32 (mmo l/L) Final Anion gap 11/27/2024 03:12:00 11 7-15 (mmol /L) Final Glucose 11/27/2024 03:12:00 133 Above high normal 70 -120 (mg/dL) Final Calcium 11/27/2024 03:12:00 8.4 8.4-10.2 ( mg/dL) Final Performing Location [place] [place] [address] [place] [address]
--- OUTSIDE RECORDS SUMMARY | 2024-12-10 14:05 | External Medical Summary | Summary of Care ---
Author Name Unknown Organization [facility] Address [address] [place] [address] Phone [phone] Care Team Providers Care [employer] Supervisor Name Role Phone Tai Bal PA-C Primary Care Provide r Reason for Visit * Auth/Cert Specialty Diagnoses / Procedures Referred By Contbrandon t Referred To Contact Diagnoses new aphasia, s/p fall 11/22/24 Diomedes Rico MD [address] [place] [address] Phone: tel: fax: Admissions, [facility] [address] [place] [address] Referral ID Status Reason Start Date Expiration Date Visits Re quested Visits Authorized [id number] Encounter Details Date Type Department Care Team (Latest Contact Info) Description 11/25/2024 12:37 PM EDT - 11/25/2024 11:59 PM EDT Hospital Encounter Cardiac Studies [facility] [address], [place] [id number] Discharge Disposition: Home - Self Care Allergies [...] [place] [id number] Migel Young MD [address] [facility] [place] [address] Health Maintenance Due Date [...] shot) (#1) 2024 07/26/2019, 07/26/2019, 06/10/2018 GFR 11/26/2025 11/26/2024, 10/30, 11/24/2024, Additional history exists Cologuard 03/23/2027 03/23/2024, 03/17/2024 Colorectal Cancer Screening 03/23/2027 Diabetes Screening 11/27/2027 11/26/2024, 0 11/25/2024, 11/24/2024, Additional history exists HPV (Gardasil) Vaccine [...] Name Priority Date/Time Associated Diagnosis Comments ECHO, COMPLETE (2D), TRANS-THORACIC Routine 11/25/2024 2:51 PM EDT Stroke (HCC) documented in this encounter Visit Diagnoses Diagnosis Other cerebrovascular disease- Primary Other ill-defined cerebrovascular disease documented in this encounter Administered Medications Inactive Administered Medications - up to 3 most recent administrations Medication Order MAR Action Action Date Dose Rate Site perflutren lipid microsphere inj SUSP 1.956 mg 1.956 mg, Intravenous, ONCE PRN Other, For Echo Only - Suboptimal Echo Images, Starting on Thu11/25/24 at 1335, Until Thu11/25/24 at 1534, For 2 hours, Administer IVP over 45 seconds, Cardiac Studies_HODHOVIndications:Other cerebrovascular disease Given 11/25/2024 1:36 PM EDT 1.956 mg documented in this encounter Advance Directives * Full Code (Latest Code Status on File) Date Activated Date Inactivated Comments 11/24/2024 1:12 AM This order ref lects the patients wishes and were consensually agreed upon. Question Answer Comments Discussion of Advance Direct loli occurred with: Not Discussed due to patient's condition Care Teams [employer] Supervisor Relationship Specialty Start Date End Date Tai Bal PA-C PCP - General Physician [employer] 05/16/22 documented as of this encounter
--- OUTSIDE RECORDS SUMMARY | 2024-12-10 14:05 | External Medical Summary ---
Author Name Unknown Address Unknown Organization K01:LABORATORY [facility] [place] - [address] [place] [address] Laboratory Report Ordering Provider Test Date Status TIM CASTAÑEDA 11/26/2024 12:21:00 Final Anticoagulation may affect t esting. Refer to [facility] Test Catalog for a list of effects. Observation Date Value Abnormality Reference (Units ) Status aPTT panel - Platelet poor plasma 11/26/2024 12:21:00 23 21-38 (seconds) Final Performing Location LABORATORY [facility] [place] - [address] [place] [address]
--- OUTSIDE RECORDS SUMMARY | 2024-12-10 14:05 | External Medical Summary ---
Author Name Unknown Address Unknown Organization K01:[place] [place] [facility] [address] [facility] [place] [address] Laboratory Report Ordering Provider Test Date Status ANDREA AYON 11/27/2024 16:51:00 Final Get Heparin, unfractionated (Xa) level 6 hours after start of infusion and 6 hours after each dose adjustment Observation Date Value Abnormality Reference (Units ) Status Heparin, unfractionated level 11/27/2024 16:51:00 0.34 Above high normal <0.10 (IU/mL) Final Anti-Xa [...] questions. Performing Location [facility] [place] [facility] [address] [facility] [address] [facility] [address]
--- OUTSIDE RECORDS SUMMARY | 2024-12-10 14:05 | External Medical Summary ---
Author Name Unknown Address Unknown Organization : Laboratory Report Ordering Provider Test Date Status TORIN SEPULVEDA 11/25/2024 08:56:17 Final Observation Date Value Abnormality Reference (Units ) Status Glucose Point of Care 11/25/2024 08:56:17 139 Above high normal 70-120 (mg/dL) Final Performing Location
--- OUTSIDE RECORDS SUMMARY | 2024-12-10 14:05 | External Medical Summary ---
Author Name Unknown Address Unknown Organization K01:LABORATORY [facility] [place] - [address] [place] [address] Laboratory Report Ordering Provider Test Date Status TIM CASTAÑEDA 11/26/2024 12:21:00 Final Observation Date Value Abnormality Reference (Units ) Status Heparin, unfractionated level 11/26/2024 12:21:00 0.12 Above high normal <0.10 (IU/mL) Final Anti-Xa [...] medicine with any questions. Performing Location LABORATORY [facility] [place] - [facility] [address] [place] [address]
--- OUTSIDE RECORDS SUMMARY | 2024-12-10 14:05 | External Medical Summary ---
Author Name Unknown Address Unknown Organization K01:LABORATORY [facility] - [address] [place] [address] Laboratory Report Ordering Provider Test Date Status KATYA POP 11/26/2024 05:55:00 Final Observation Date Value Abnormality Reference (Units ) Status BUN 11/26/2024 05:55:00 10 6-20 (mg/dL) Final Creatinine 11/26/2024 05:55:00 0.9 0.6-1.2 (mg/dL) Final Glomerular filtration rate/1.73 sq M.predicted [Volume Rate/Area] in Serum, Plasma or Blood by Creatinine-based formula (CKD-EPI) 11/26/2024 05:55:00 >90 >=60 (mL/min) Final eGFR is calculated based on the CKD-EPI 2020 equation. Sodium 11/26/2024 05:55:00 138 135-146 (m mol/L) Final Potassium 11/26/2024 05:55:00 3.6 3.5-5.1 (m mol/L) Final Cl 11/26/2024 05:55:00 104 98-107 (mm ol/L) Final CO2 11/26/2024 05:55:00 23 22-32 (mmo l/L) Final Anion gap 11/26/2024 05:55:00 11 7-15 (mmol /L) Final Glucose 11/26/2024 05:55:00 136 Above high normal 70 -120 (mg/dL) Final Calcium 11/26/2024 05:55:00 7.9 Below low normal 8.4 -10.2 (mg/dL) Final Performing Location LABORATORY [facility] - [address] [place] [address]
--- OUTSIDE RECORDS SUMMARY | 2024-12-10 14:05 | External Medical Summary ---
Author Name Unknown Address Unknown Organization K01:[place] [facility] [place] [address] [place] [address] Laboratory Report Ordering Provider Test Date Status KATYA POP 11/25/2024 05:20:17 Final Observation Date Value Abnormality Reference (Units ) Status BUN 11/25/2024 05:20:17 14 6-20 (mg/dL) Final Creatinine 11/25/2024 05:20:17 1.1 0.6-1.2 (mg/dL) Final Glomerular filtration rate/1.73 sq M.predicted [Volume Rate/Area] in Serum, Plasma or Blood by Creatinine-based formula (CKD-EPI) 11/25/2024 05:20:17 82 >=60 (mL/min) Final eGFR is calculated based on the CKD-EPI 2020 equation. Sodium 11/25/2024 05:20:17 139 135-146 (m mol/L) Final Potassium 11/25/2024 05:20:17 3.7 3.5-5.1 (m mol/L) Final Cl 11/25/2024 05:20:17 107 98-107 (mm ol/L) Final CO2 11/25/2024 05:20:17 23 22-32 (mmo l/L) Final Anion gap 11/25/2024 05:20:17 9 7-15 (mmol /L) Final Glucose 11/25/2024 05:20:17 131 Above high normal 70 -120 (mg/dL) Final Calcium 11/25/2024 05:20:17 7.8 Below low normal 8.4 -10.2 (mg/dL) Final Performing Location [place] [place] [address] [place] [address]
--- OUTSIDE RECORDS SUMMARY | 2024-12-10 14:05 | External Medical Summary ---
Author Name Unknown Address Unknown Organization K01:LABORATORY [facility] - [address] [place] [address] Laboratory Report Ordering Provider Test Date Status ANDREA AYON 11/28/2024 05:51:00 Final Observation Date Value Abnormality Reference (Units ) Status Magnesium 11/28/2024 05:51:00 1.8 1.5-2.6 (m g/dL) Final Performing Location LABORATORY [facility] - [address] [place] [address]
--- OUTSIDE RECORDS SUMMARY | 2024-12-10 14:05 | External Medical Summary ---
Author Name Unknown Address Unknown Organization K01:LABORATORY [facility] - [address] [place] [address] Laboratory Report Ordering Provider Test Date Status KATYA POP 11/26/2024 05:55:00 Final Observation Date Value Abnormality Reference (Units ) Status Phosphate 11/26/2024 05:55:00 2.8 2.5-4.8 (m g/dL) Final Performing Location LABORATORY [facility] - [address] [place] [address]
--- OUTSIDE RECORDS SUMMARY | 2024-12-10 14:05 | External Medical Summary ---
Author Name Unknown Address Unknown Organization : Laboratory Report Ordering Provider Test Date Status GEREMIAS RAIN 11/27/2024 11:55:54 Final Observation Date Value Abnormality Reference (Units ) Status Glucose Point of Care 11/27/2024 11:55:54 195 Above high normal 70-120 (mg/dL) Final Performing Location
--- OUTSIDE RECORDS SUMMARY | 2024-12-10 14:05 | External Medical Summary ---
Author Name Unknown Address Unknown Organization K01:LABORATORY [facility] - [address] [place] [address] Laboratory Report Ordering Provider Test Date Status ANDREA AYON 11/28/2024 05:51:00 Final Observation Date Value Abnormality Reference (Units ) Status Phosphate 11/28/2024 05:51:00 3.5 2.5-4.8 (m g/dL) Final Performing Location LABORATORY [facility] - [address] [place] [address]
--- OUTSIDE RECORDS SUMMARY | 2024-12-10 14:05 | External Medical Summary ---
Author Name Unknown Address Unknown Organization : Laboratory Report Ordering Provider Test Date Status TORIN SEPULVEDA 11/25/2024 21:33:25 Final Observation Date Value Abnormality Reference (Units ) Status Glucose Point of Care 11/25/2024 21:33:25 157 Above high normal 70-120 (mg/dL) Final Performing Location
--- OUTSIDE RECORDS SUMMARY | 2024-12-10 14:05 | External Medical Summary ---
Author Name Unknown Address Unknown Organization : Laboratory Report Ordering Provider Test Date Status TORIN SEPULVEDA 11/25/2024 11:53:21 Final Observation Date Value Abnormality Reference (Units ) Status Glucose Point of Care 11/25/2024 11:53:21 167 Above high normal 70-120 (mg/dL) Final Performing Location
--- OUTSIDE RECORDS SUMMARY | 2024-12-10 14:05 | External Medical Summary ---
Author Name Unknown Address Unknown Organization K01:[place]ORY [facility] [place] [address] [place] [address] Laboratory Report Ordering Provider Test Date Status GEREMIAS RAIN 11/26/2024 19:44:00 Final Observation Date Value Abnormality Reference (Units ) Status Heparin, unfractionated level 11/26/2024 19:44:00 0.17 Above high normal <0.10 (IU/mL) Final Anti-Xa [...] with any questions. Performing Location LAB[facility] [place] - [facility] [address] [place] [address]
--- OUTSIDE RECORDS SUMMARY | 2024-12-10 14:05 | External Medical Summary ---
Author Name Unknown Address Unknown Organization : Laboratory Report Ordering Provider Test Date Status GEREMIAS RAIN 11/27/2024 21:10:03 Final Observation Date Value Abnormality Reference (Units ) Status Glucose Point of Care 11/27/2024 21:10:03 241 Above high normal 70-120 (mg/dL) Final Performing Location
--- OUTSIDE RECORDS SUMMARY | 2024-12-10 14:05 | External Medical Summary ---
Author Name Unknown Address Unknown Organization K01:[place] [place] [address] [place] [address] Laboratory Report Ordering Provider Test Date Status GEREMIAS RAIN 11/28/2024 05:51:00 Final Observation Date Value Abnormality Reference (Units ) Status Heparin, unfractionated level 11/28/2024 05:51:00 0.20 Above high normal <0.10 (IU/mL) Final Anti-Xa [...] medicine with any questions. Performing Location [facility] [place] [facility] [address] [place] [address]
--- OUTSIDE RECORDS SUMMARY | 2024-12-10 14:05 | External Medical Summary ---
Author Name Unknown Address Unknown Organization K01:[facility] [place] [address] [place] [address] Laboratory Report Ordering Provider Test Date Status TIM CASTAÑEDA 11/25/2024 16:54:00 Final Observation Date Value Abnormality Reference (Units ) Status Troponin T 11/25/2024 16:54:00 16 <=22 (ng/ L) Final Performing Location [facility] [place] [address] [place] [address]
--- OUTSIDE RECORDS SUMMARY | 2024-12-10 14:05 | External Medical Summary ---
Author Name Unknown Address Unknown Organization K01:LABORATORY [facility] - [address] [place] [address] Laboratory Report Ordering Provider Test Date Status ANDREA AYON 11/27/2024 03:12:00 Final Observation Date Value Abnormality Reference (Units ) Status Magnesium 11/27/2024 03:12:00 1.9 1.5-2.6 (m g/dL) Final Performing Location LABORATORY [facility] - [address] [place] [address]
--- OUTSIDE RECORDS SUMMARY | 2024-12-10 14:05 | External Medical Summary ---
Author Name Unknown Address Unknown Organization K01:[place] [facility] [place] [address] [place] [address] Laboratory Report Ordering Provider Test Date Status GEREMIAS RAIN 11/27/2024 09:41:00 Final Observation Date Value Abnormality Reference (Units ) Status Heparin, unfractionated level 11/27/2024 09:41:00 0.41 Above high normal <0.10 (IU/mL) Final Anti-Xa [...] medicine with any questions. Performing Location [facility] [place] [facility] [address] [place] [address]
--- OUTSIDE RECORDS SUMMARY | 2024-12-10 14:05 | External Medical Summary ---
Author Name Unknown Address Unknown Organization : Laboratory Report Ordering Provider Test Date Status TORIN SEPULVEDA 11/25/2024 15:43:51 Final Observation Date Value Abnormality Reference (Units ) Status Glucose Point of Care 11/25/2024 15:43:51 146 Above high normal 70-120 (mg/dL) Final Performing Location
--- OUTSIDE RECORDS SUMMARY | 2024-12-10 14:05 | External Medical Summary ---
Author Name Unknown Address Unknown Organization K01:LABORATORY [facility] - [address] [place] [address] Laboratory Report Ordering Provider Test Date Status KATYA POP 11/25/2024 05:20:17 Final Observation Date Value Abnormality Reference (Units ) Status Phosphate 11/25/2024 05:20:17 2.1 Below low normal 2.5 -4.8 (mg/dL) Final Performing Location LABORATORY [facility] - [address] [place] [address]
--- OUTSIDE RECORDS SUMMARY | 2024-12-10 14:05 | External Medical Summary ---
Author Name Unknown Address Unknown Organization K01:[facility] [place] [address] [place] [address] Laboratory Report Ordering Provider Test Date Status SALLY ROMEO 11/27/2024 16:04:00 Final Observation Date Value Abnormality Reference (Units ) Status Bacteria identified in Specimen by Culture 11/27/2024 16:04:00 No growth Final Test: Culture, Blood (Site 2)
Specimen Source: Blood, Venous
Specimen Type: Blood
Specimen Date: 11/27/2024 1604
Result Date: 12/02/2024 1701
Result Status: Final result
Resulting Lab: [facility]
[address]
[place] [address]

CULTURE

No growth

null Performing Location LAB[facility] [place] [address] [place] [address]
--- OUTSIDE RECORDS SUMMARY | 2024-12-10 14:05 | External Medical Summary ---
Author Name Unknown Address Unknown Organization K01:LABORATORY [facility] - [address] [place] [address] Laboratory Report Ordering Provider Test Date Status KATYA POP 11/25/2024 05:20:17 Final Observation Date Value Abnormality Reference (Units ) Status Magnesium 11/25/2024 05:20:17 1.9 1.5-2.6 (m g/dL) Final Performing Location LABORATORY [facility] - [address] [place] [address]
--- OUTSIDE RECORDS SUMMARY | 2024-12-10 14:05 | External Medical Summary ---
Author Name Unknown Address Unknown Organization : Laboratory Report Ordering Provider Test Date Status GEREMIAS RAIN 11/26/2024 17:04:40 Final Observation Date Value Abnormality Reference (Units ) Status Glucose Point of Care 11/26/2024 17:04:40 238 Above high normal 70-120 (mg/dL) Final Performing Location
--- OUTSIDE RECORDS SUMMARY | 2024-12-10 14:05 | External Medical Summary ---
Author Name Unknown Address Unknown Organization K01:[place] [facility] [place] [address] [place] [address] Laboratory Report Ordering Provider Test Date Status TIM CASTAÑEDA 11/26/2024 07:53:00 Final Observation Date Value Abnormality Reference (Units ) Status Calcium.ionized [Moles/volume] in Blood by Ion-selective membrane electrode (ISE) 11/26/2024 07:53:00 1.08 Below low normal 1.13-1.32 (mmol/L) Final Performing Location [facility] [place] [address] [place] [address]
--- OUTSIDE RECORDS SUMMARY | 2024-12-10 14:06 | External Medical Summary | Summary of Care ---
Author Name Unknown Organization [facility] Address [address] [place] [address] Phone [phone] Care Team Providers Care Automatic Lathe Operator Name Role Phone Tai Bal PA-C Primary Care Provide r Reason for Visit * Reason Comments Fall Trauma * Auth/Cert Specialty Diagnoses / Procedures Referred By Contbrandon t Referred To Contact [facility] [address] [place] [address] Phone: tel:[phone] [facility] Emergency Department ([facility]) [address] [place] [address] Phone: tel: fax: Referral ID Status Reason Start Date Expiration Date Visits Re quested Visits Authorized [id number] Encounter Details Date Type Department Care Team (Late st Contact Info) Description 11/23/2024 6:57 PM EDT - 11/23/2024 9:30 PM EDT Emergency [facility] Emergency [facility] ([facility]) [facility] [place] [address] Carey Saleem DO [address] [place] [address] 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); Syncope Discharge Disposition: Short Term Hospital Allergies Active Allergy Reactions Criticality Noted Date [...] Active Problems Problem Noted Date Diagnosed Date H/O mitral valve replacement with mechanical katharine [...] Sign Reading Time Taken Comments Blood Pressure 136/88 11/23/2024 9:30 PM EDT Pulse 79 11/23/2024 9:30 PM EDT Temperature 36.7 °C (98.1 °F) 11/23/2024 8:42 PM ED T Respiratory Rate 15 11/23/2024 9:30 PM EDT Oxygen Saturation 97% 11/23/2024 9:30 PM EDT Inhaled Oxygen Concentration - - Weight 121.8 kg (268 lb 8.3 oz) 11/23/2024 6:57 PM EDT Height - - Body Mass Index 39.65 06/13/2022 12:31 PM EDT documented in this encounter Nursing Notes * Hannah Faye RN - 11/23/2024 8:12 PM EDT 1857 xray at bedside for chest and pelvis [address] on monitor with this nurse 1931 patient returned to room from ct on monitor with this nurse 2006 AMANDA Espinal to discontinue trauma alert due to negative imaging. documented in this encounter ED Notes * Carey Saleem DO - 11/23/2024 7:00 PM EDTAssociated Order(s): Imaging Interpretation; Imaging Interpretation; ECG Interpret HISTORY OF PRESENT ILLNESS Tariq Sawant is a 54 year old male who presents to the ED for evaluation of Fall and Trauma. The patient was seen at 11/23/241858. History provided by: patient and EMS History limited by: Able to answer yes/no only. Alert type: Adult Trauma - Level 1 Trauma Evaluation: Pre-hospital notification: Yes Mechanism of injury: fall Time since injury: 1 day Arrival method: Ambulance Primary survey: airway normal and pulses present in all extremities Primary survey comment: Alert, able to follow all commands. Attempts to answer question, but only able to say yes or no E-FAST findings: Not indicated E-FAST comments: Trauma occurred 24 hours ago. HE denies nausea, vomiting, abdominal pain. BS are normal. Abdomen is soft to palpation Trauma Mechanism of injury: Fall Injury location: Severe headache. 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 Denies abdominal pain, back pain, blindness, chest pain, difficulty breathing, nausea, neck pain, seizures and vomiting. Relevant PMH: Medical risk factors: HIstory of left sided embolic stroke. Aortic valve replacement. Pharmacological risk factors: Anticoagulation therapy. Eliquis Tetanus status: unknown The patient has not been admitted to the hospital due to injury in the past year, and has not been treated and released from the ED due to injury in the past year. Review of Systems Constitutional: Negative for chills and fever. Eyes: Negative for blindness and visual disturbance. Respiratory: Negative for cough, chest tightness and shortness of breath. Cardiovascular: Negative for chest pain. Gastrointestinal: Negative for abdominal pain, nausea and vomiting. Musculoskeletal: Negative for back pain and neck pain. Neurological: Positive for weakness (right hemiparesis) and headaches. Negative for seizures. The patient's allergies, past history, and medications were reviewed. PHYSICAL EXAM Initial Vitals (see all): BP 144/100 | Pulse 85 | Resp 28 | Temp 98.1 | O2 98 %, Room Air, None | Weight 121.8 kg | Height 175.3 cm | Initial Pain Assessment (see all): , location: head ([facility] Adult Scale 0-10 (18 years and older)) Physical Exam Vitals and nursing note reviewed. Constitutional: General: He is not in acute distress. Appearance: He is not ill-appearing. HENT: Head: Normocephalic and atraumatic. Right Ear: Tympanic membrane, ear canal and external ear normal. Left Ear: Tympanic membrane, ear canal and external ear normal. Nose: Nose normal. No rhinorrhea. Mouth/Throat: Mouth: Mucous membranes are moist. Pharynx: No posterior oropharyngeal erythema. Eyes: General: No visual field deficit. Extraocular Movements: Extraocular movements intact. Pupils: Pupils are equal, round, and reactive to light. Comments: Pupils 2 mm bilaterally and equally reactive Neck: Comments: Cleared using NEXUS criteria Cardiovascular: Rate and Rhythm: Normal rate and regular rhythm. Pulses: Normal pulses. Pulmonary: Effort: Pulmonary effort is normal. Breath sounds: Normal breath sounds. No wheezing, rhonchi or rales. Abdominal: General: Bowel sounds are normal. Palpations: Abdomen is soft. Tenderness: There is no abdominal tenderness. There is no guarding or rebound. Musculoskeletal: Cervical back: Normal range of motion and neck supple. No tenderness. Comments: Contracture of the right hand. Weakness right upper extremity. Skin: General: Skin is warm. Capillary Refill: Capillary refill takes less than 2 seconds. Neurological: Mental Status: He is alert. GCS: GCS eye subscore is 4. GCS verbal subscore is 3. GCS motor subscore is 6. Cranial Nerves: Cranial nerves 2-12 are intact. Sensory: Sensory deficit (right arm) present. Motor: Weakness (right upper extremity and right lower extremitiy.) present. Comments: Gait not test at this time PROCEDURES AND TREATMENTS ED Orders | ED Results Imaging Interpretation Date/Time: 11/23/2024 7:17 PM Performed by: Carey Saleem DO Authorized by: Carey Saleem DO Image type: Chest Number of views: 3 Views: AP Lungs: Normal Negative findings: no atelectasis, no effusion, no hemopneumothorax, no hemothorax, no hyperinflation, no infiltrate, no nodule/mass, no ramsey-bronchial cuffing, no pneumothorax, no poor inspiration and no pulmonary edema Mediastinum: Normal Negative findings: no cardiomegaly, no mass, no pneumomediastinum/pericardium and no widening Bones: Normal Negative findings: no clavicle fracture, no rib(s) fracture, no scapula fracture and no shoulder fracture Abdomen: Normal Negative findings: no air-fluid levels and no free (sub-diaphagmatic) air Impression: No acute disease Compared to previous, findings are: Unchanged Imaging Interpretation Date/Time: 11/23/2024 7:18 PM Performed by: Carey Saleem DO Authorized by: Carey Saleem DO Image type: Extremity Number of views: 2 Left views: Pelvis Comments: Degenerative heart disease bilateral hips. No acute fracture or dislocation. ECG Interpret Date/Time: 11/23/2024 8:12 PM Performed by: Carey Saleem DO Authorized by: Carey Saleem DO Previous ECG: Previous ECG: Unavailable Interpretation: Interpretation: abnormal Quality: Tracing quality: Limited by artifact Rate: ECG rate: 80 ECG rate assessment: normal Rhythm: Rhythm: sinus rhythm Ectopy: Ectopy: none QRS: QRS axis: Normal QRS intervals: Normal Conduction: Conduction: normal ST segments: ST segments: Normal T waves: T waves: normal Intervals: SC Interval: 172 QRS Interval: 102 QTc Interval: 459 Other findings: Other findings: poor R wave progression Comments: Poor R-wave progression in the anterior leads which could represent prior infarct. Nonspecific ST flattening in the lateral leads. No acute STEMI or dysrhythmia present. MEDICAL DECISION MAKING Nursing notes and vital signs were reviewed. ED Course as of 11/23/242133Nov 23, 20241912 CBC with WBC Differential No leukocytosis or anemia present. [CB] 1912 Lactate Whole Blood (Blood Gas Sample)(!!) Elevated. This could be from recent trauma. [CB] [address] reviewed by this provider. Significant injury left lobe of brain which is most likely chronic. No previous CT for comparison. No evidence of midline shift. [CB] 193 PT INR Normal [CB] 1931 Comprehensive Metabolic Panel(!) Slight decrease CO2 with mild elevation anion gap of uncertain etiology. [CB] 2003 Spoke with trauma at [facility]. Since he has not suffered an acute traumatic injury, they do not feel he needs admitted to their service. Recommend neurology consult. DR Malik recommends obtaininga CTA head and neck to rule out LVO. Given the elevation in his lactate he cannot exclude a seizure. We will reconvene after CTA is completed. [CB] 2004 CK Normal [CB] 2006 Trauma alert discontinued. [CB] 2013 Troponin T, High Sensitivity Normal [CB] 2106 After reviewing the CTA head and neck with neurology and neurosurgery, it has been decided to transfer to the patient directly to OR 26 at [facility] for thrombectomy. It is difficult to know if the occlusion at the ID area is new or from previous infarct. Per radiology he has findings consistent with a more acute thrombus to this area. [CB] ED Course User Index [CB] Carey Saleem DO Scoring Tools Results: Total: 12 Differential Diagnoses Based on my history, physical exam, and evaluation, the differential includes, but is not limited, to the following diagnoses: head injury and Intracranial injury, infection.. Tariq is a 54 year old male with history of previous CVA which left him with right sided hemiparesis. EMS reports a fall from the couch striking the left side of his head. He is on Eliquis at home.Uncertain time of last dose. He complains of severe headache (points to left side of his head when asked to locate headache) and difficulty talking. He appears frustrated when attempting to answer questions. HE is able to answer yes/no questions. The speech deficit is reported to be new. HE denies change in weakness right side, visual disturbance. We have been attempting to communicate in writing. When asked when he fell, he wrote 6. Asked if AM or PM, he responded PM. He has no obvious signs of trauma. Trauma alert initiated. No acute head intracranial injury identified on head CT. No acute traumatic injury of the spine, chest/abdomen or pelvis present. CTA head and neck obtained. He appears to have an occlusion of the short segment of the distal aspect M1 segment of the MCA. Uncertain if this is new or from prior stroke. IT does have some aspects per the radiologist to suggest it is more acute. Abrupt occlusion just past the origin of the left posterior cerebral artery with minimal filling peripheral to this. Neurology and neurosurgery consulted. Neurosurgery recommends transfer to [facility] OR via [facility]. He has remained stable throughout his ER stay. He expressed understanding and agrees to transfer to [facility] for further treatment of an acute embolic stroke. Amount and/or Complexity of Data Reviewed Independent Historian: EMS Labs: ordered. Decision-making details documented in ED Course. Radiology: ordered and independent interpretation performed. ECG/medicine tests: ordered and independent interpretation performed. Risk Prescription drug management. 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 The patient's condition at disposition was: stable. Comments ED Disposition Transferred Comment Initial facility contacted: [facility] Initial contact date/time: 11/23/2024, Accepting provider: DR Peter Blas Accepting date/time: 11/23/2024, Reason for transfer: Neurosurgery Carey Espinal * Liane Barboza RN - 11/23/2024 6:58 PM EDT Pt brought to ER by [facility] for c/o syncopal episode. Per hyperion essbase developer, pt reports that he fell off of his couch yesterday and hit the left side of his head, currently on eliquis, having difficulty speaking, only able to answer yes/no questions, LKW yesterday, pt c/o headache at this time, right arm affected from last CVA, vitals: pulse 91, systolic BP 150, pulse ox 98% on room air, blood glucose 164, 18 gauge IV lock placed to left AC area. documented in this encounter Miscellaneous Notes * ED Time Motion Analyst Note - Hannah Faye RN - 11/23/2024 9:44 PM EDT Report called to [facility] OR * ED Time Motion Analyst Note - Hannah Faye RN - 11/23/2024 9:06 PM EDT [facility] reports eta in 20 minutes pending no weather issues * Communication - Carlton Villagran MD - 11/23/2024 8:57 PM EDT TELESTROKE PHONE CALL Requested By: Dr. Espinal Requesting Site: [facility] ED Time of Page: 11/23/20241957 Time Discussion was Initiated: 11/23/20241999 Last Known Well Time: Yesterday I was paged regarding Tariq Sawant about symptoms including aphasia following fall. Patient hasa pmx significant for prior LMCA stroke w/ residual R hemiparesis, HTN, s/p MVR on Apixaban, and DLD. Per ED provider, patient fell off his couch yesterday, striking the left side of his head with unclear loss of consciousness. Since that time, he has had an expressive aphasia, resigned to answering only yes/no questions inconsistently. He endorses having a headache, but otherwise denies any knowledge or history of seizure like activity. Lab work is pertinent for a lactic acidosis (4.1). He is otherwise hemodynamically stable, sating on RA, and afebrile. I personally reviewed the following images and my interpretation is as follows: Time images reviewed: 11/23/20242019 CTA Head/Neck - There is encephalomalacia and cortical atrophy of the L hemisphere consistent with prior stroke; there is no evidence of acute ischemia, hemorrhage, or mass effect. There is a possible subocclusive thrombus at the distal LM1 segment of unclear acuity in addition to abrupt cutoff at the left P1 segment. Distal contrast opacification of MCA vessels are potentially delayed but otherwise preserved. CONSIDERATION OF ACUTE STROKE THERAPIES: IV Thrombolysis Exclusion Criteria: - Last known well beyond the 4.5 hour time period - Direct thrombin inhibitor or direct factor Xa inhibitor taken within 48 hours or with an abnormalaPTT, INR, or direct Xa assay IV Thrombolysis Relative Exclusion Criteria: - None IV Thrombolysis Therapy Considerations and Discussion: Patient is not eligible for IV thrombolytic therapy due to having the exclusion criteria above, andrisk to benefit is considered unfavorable. IV Thrombolysis Administration Recommendation: Do not administer IV thrombolytic agent. See any additional recommendations below for acute stroke care. Hospital related or other factors: None. Endovascular Therapy Exclusion Criteria: - None Endovascular Therapy Relative Exclusion Criteria: - Significant pre-stroke/baseline functional disability (modified Corrie Score greater than or equal to 3) Endovascular Therapy Assessment: - Patient is a candidate for endovascular acute stroke therapy considering the above exclusion criteria, and risk to benefit is considered favorable. 54 year old man with vascular risk factors as above presenting with new onset aphasia following fall. Cause of fall remains uncertain, with vascular risk factors and vessel imaging findings raising possibility of acute stroke. Patient does not exhibit any early ischemic changes on CT, and after discussion with Neurosurgery team, it was determined that emergent DSA to better assess acuity of distal M1 occlusion is reasonable. Of note, we have no prior vessel imaging for comparison and it difficult to gauge chronicity of either the M1 or P1 occlusions, particularly considering that patient has been on Apixaban. Other consideration, particularly given elevated lactate, is focal seizure activity with post-ictal deficits. I made the following recommendations: 1) Transfer to [facility] via [facility] for emergent DSA. Further recommendations pending findings on DSA. [facility] CCM made aware. 2) Will need to consider at least routine EEG to evaluate for epileptiform potential if DSA shows no acute findings. 3) Recommend MRI Brain w/o contrast. 4) Can continue on Apixaban 5mg BID given no evidence of significant ischemic burden. Additional Stroke Care (or Document Contraindication) as Follows: N/A Drs. Blas, Jacky, and Teddy voiced agreement to this plan. documented in this encounter Plan of Treatment Scheduled Orders Name Type Priority Associated Diagnoses Orde r Schedule TOXICOLOGY URINE SCREEN CUP W/ CONFIRMATION ([facility] ONLY) Lab STAT Perform Now for 1 Occurrences starting 11/23/2024 until 11/23/2024 URINALYSIS, REFLEX TO MICROSCOPIC Lab STAT One Time for 1 Occurrences starting 11/23/2024 until 11/23/2024 EKG EKG STAT Syncope Perform Now for 1 Occurrences starting 11/23/2024 until 11/23/2024 Health Maintenance Due Date Last Done Comments [...] of 2) 2020 COVID-19 Vaccine (1 - 2023-2 5 season) 2024 Influenza Vaccine (FLU shot) (#1) 2024 07/26/2019, 07/26/2019, 06/10/2018 GFR 11/24/2025 11/24/2024, 11/24/2024, 11/23/2024 Cologuard 03/23/2027 03/23/2024, 03/17/2024 Colorectal Cancer Screening 03/23/2027 HPV (Gardasil) Vaccine Aged Out No lo nger eligible based on patient's age to complete this topic MENINGOCOCCAL (MENACTRA/MENVEO) Aged Out No longer eligible b ased on patient's age to complete this topic Meningitis B Vaccine (Bexsero/Trumemba) Aged Out No longer eligible b ased on patient's age to complete this topic documented as of this encounter Medical Devices Not on filedocumented as of this encounter Procedures Procedure Name Priority Date/Time Associated Diagnosis Comments CTA HEAD/CTA NECK Routine 11/23/2024 8:1 8 PM EDT ECG INTERPRET Routine 11/23/2024 8:[address] ABD/PELVIS W IV CONTRAST - WO ORAL CONTRAST STAT 11/23/2024 7:[address] CHEST W CONTRAST STAT 11/23/2024 7 :20 PM EDT ED IMAGING INTERPRETATION Routine 11/23/2024 7:[address] C SPINE WO CONTRAST STAT 7:18 PM EDT ED IMAGING INTERPRETATION Routine 11/23/2024 7:[address] HEAD/BRAIN WO CONTRAST STAT 11/23/2024 7:14 PM EDT XR PELVIS AP VIEW STAT 11/23/2024 7:1 3 PM EDT XR CHEST 1 VIEW STAT 11/23/2024 7:12 PM EDT DIFFERENTIAL, AUTOMATED STAT 11/24/19 7:02 PM EDT TROPONIN T, HIGH SENSITIVITY Add-on 11/23/2024 7:02 PM EDT COMPREHENSIVE METABOLIC PANEL STAT 11/23/2024 7:02 PM EDT ABO/RH STAT 11/23/2024 7:02 PM EDT TYPE AND SCREEN STAT 11/23/2024 7:02 PM EDT CK Add-on 11/23/2024 7:02 PM EDT CBC STAT 11/23/2024 7:02 PM EDT PT INR STAT 11/23/2024 7:02 PM EDT LACTATE,WHOLE BLOOD STAT 11/23/2024 7 :02 PM EDT ETHANOL, MEDICAL STAT 11/23/2024 7:02 PM EDT CBC STAT 11/23/2024 7:02 PM EDT EXTRA GREEN TOP WITH GEL Routine 11/23/2024 7:01 PM EDT EXTRA TUBES Routine 11/23/2024 7:01 PM EDT documented in this encounter Results * CTA HEAD/CTA NECK (11/23/2024 8:18 PM EDT) Anatomical Region Laterality Modality Neck, Head, Cspine, Spine Comput ed Tomography 11/23/2024 8:02 PM EDT Addenda Addendum by Parth Mark MD on 11/23/2024 8:53 PM EDT THIS REPORT CONTAINS FINDINGS THAT MAY BE CRITICAL TO PATIENT CARE. The findings were verbally communicated via telephone conference with CAREY Sams at 8:52 PM EDT on 11/23/2024. The findings were acknowledged and understood. THIS DOCUMENT HAS BEEN ELECTRONICALLY SIGNED BY PARTH MARK MD Impressions 11/23/2024 8:50 PM EDT IMPRESSION: 1. There is a short segment [...] PM FINDINGS: Right common carotid artery: No stenosis. No dissection or occlusion. Right internal carotid [...] fracture. Other findings: No dissection, aneurysm or stenosis in the extracranial carotid systems or vertebral arteries. IMPRESSION: No dissection, aneurysm or stenosis in the extracranial carotid systems or vertebral arteries. REFERENCES: NASCET CRITERIA. The degree of stenosis in the cervical segment of the internal carotid artery is based on NASCET criteria. Normal is no stenosis. Mild is less than 50% stenosis. Moderate is 50-69% stenosis. Severe is 70% to 99% stenosis. Total occlusion is no detectable patent lumen. THIS DOCUMENT HAS BEEN ELECTRONICALLY SIGNED BY PARTH MARK MD Narrative 11/23/2024 8:50 PM EDT PROCEDURE INFORMATION: Exam: CTA Head Without And With Contrast, Arteriography Exam date and time: 11/23/2024 8:02 PM Age: 54 years old Clinical indication: Other: Aphasia; Additional info: Severe headache and new onset aphasia TECHNIQUE: Imaging protocol: Computed tomographic angiography of the head without and with contrast. Exam focused on the arteries. 3D rendering (Not supervised by radiologist): MIP [...] ml; Contrast route: INTRAVENOUS (IV); COMPARISON: CT HEAD/BRAIN WO CONTRAST 11/23/2024 7:01 PM FINDINGS: ANTERIOR CIRCULATION: Right internal carotid artery: [...] normal. No mastoid effusion. Soft tissues: Unremarkable. Procedure Note Parth Mark MD - 11/23/2024 PROCEDURE INFORMATION: Exam: CTA Head Without And With Contrast, Arteriography Exam date and time: 11/23/2024 8:02 PM Age: 54 years old Clinical indication: Other: Aphasia; Additional info: Severe headache andnew onset aphasia TECHNIQUE: Imaging protocol: Computed tomographic angiography of the head without andwith contrast. Exam focused on the arteries. 3D rendering (Not supervised by radiologist): MIP and/or 3D reconstructed images were created by the technologist. Radiation optimization: All CT scans at this facility use at least one ofthese dose optimization techniques: automated exposure control; mA and/or kV adjustment per patient size (includes targeted exams where dose is matchedto clinical indication); or iterative reconstruction. Contrast material: ISOVUE 370; Contrast volume: 80 ml; Contrast route: INTRAVENOUS (IV); COMPARISON: CT HEAD/BRAIN WO CONTRAST 11/23/2024 7:01 PM FINDINGS: ANTERIOR CIRCULATION: Right internal carotid artery: [...] There is a short segment near occlusion ofthe distal most aspect of M1 segment left [...] artery: There is abrupt occlusion just past theorigin left posterior cerebral artery with minimal filling peripheral to this. HEAD: Brain: Encephalomalacia left temporal lobe and basal ganglia and centrum semiovale again evident consistent with a remote ischemic event. Cerebral ventricles: Normal. No ventriculomegaly. Bones: Unremarkable. No acute fracture. Paranasal sinuses: Visualized sinuses are normal. No fluid levels. Mastoid air cells: Visualized mastoids are normal. No mastoid effusion. Soft tissues: Unremarkable. IMPRESSION IMPRESSION: 1. There is a short segment near occlusion of the distal most aspect ofM1 segment left middle cerebral artery with some preserved filling of the attenuated appearing M2 branching distal to this. Uncertain if this isrelated to the old infarction, or if there is a new thrombus here. 2. There is abrupt occlusion just past the origin left posteriorcerebral artery with minimal filling peripheral to this. PROCEDURE INFORMATION: Exam: CTA Neck Without And With Contrast Exam date and time: 11/23/2024 8:02 PM Age: 54 years old Clinical indication: Other: Aphasia; Additional info: Severe headache andnew onset aphasia TECHNIQUE: Imaging protocol: Computed tomographic angiography of the neck without andwith contrast. Exam focused on the cervical segments of the vasculature. 3D rendering (Not supervised by radiologist): MIP and/or 3D reconstructed images were created by the technologist. Radiation optimization: All CT scans at this facility use at least one ofthese dose optimization techniques: automated exposure control; mA and/or kV adjustment per patient size (includes targeted exams where dose is matchedto clinical indication); or iterative reconstruction. Contrast material: ISOVUE 370; Contrast volume: 80 ml; Contrast route: INTRAVENOUS (IV); COMPARISON: CT C SPINE WO CONTRAST 11/23/2024 7:09 PM FINDINGS: Right common carotid artery: No stenosis. No dissection or occlusion. Right internal carotid [...] fracture. Other findings: No dissection, aneurysm or stenosis in the extracranialcarotid systems or vertebral arteries. IMPRESSION: No dissection, aneurysm or stenosis in the extracranial carotid systems or vertebral arteries. REFERENCES: NASCET CRITERIA. The degree of stenosis in the cervical segment of theinternal carotid artery is based on NASCET criteria. Normal is no stenosis. Mild isless than 50% stenosis. Moderate is 50-69% stenosis. Severe is 70% to 99%stenosis. Total occlusion is no detectable patent lumen. THIS DOCUMENT HAS BEEN ELECTRONICALLY SIGNED BY PARTH MARK MD Carey Espinal DO RAD CT Edited Result - Final * ECG Interpret (11/23/2024 8:12 PM EDT) Narrative Carey Saleem DO - 11/23/2024 8:12 PM EDT Carey Saleem DO 11/23/2024 9:34 PM ECG Interpret Date/Time: 11/23/2024 8:12 PM Performed by: Carey Saleem DO Authorized by: Carey Saleem DO Previous ECG: Previous ECG: Unavailable Interpretation: Interpretation: abnormal Quality: Tracing quality: Limited by artifact Rate: ECG rate: 80 ECG rate assessment: normal Rhythm: Rhythm: sinus rhythm Ectopy: Ectopy: none QRS: QRS axis: Normal QRS intervals: Normal Conduction: Conduction: normal ST segments: ST segments: Normal T waves: T waves: normal Intervals: SC Interval: 172 QRS Interval: 102 QTc Interval: 459 Other findings: Other findings: poor R wave progression Comments: Poor R-wave progression in the anterior leads which could represent prior infarct. Nonspecific ST flattening in the lateral leads. No acute STEMI or dysrhythmia present. Carey Espinal DO PROCEDURE REPORT Final Result * CT ABD/PELVIS W IV CONTRAST - WO ORAL CONTRAST (11/23/2024 7:21 PM EDT) Anatomical Region Laterality Modality Body, Abdomen, Pelvis Computed T omography 11/23/2024 7:12 PM EDT Impressions 11/23/2024 7:33 PM EDT IMPRESSION: 1. No lobar consolidation, pleural effusion [...] the kidneys. Tiny renal cysts. Punctate nonobstructive stone right kidney. Liver: Tiny hepatic probable cysts some too small to fully characterize. Gallbladder and biliary ducts: Normal. No calcified stones. No ductal dilation. Pancreas: Normal. No ductal dilation. Spleen: Normal. No splenomegaly. Adrenal glands: Normal. No mass. Kidneys and ureters: See "Lungs" finding. Stomach and bowel: Limited diverticulosis. Appendix: Normal appendix. Intraperitoneal space: Unremarkable. No free air. No significant fluid collection. Vasculature: Limited atherosclerosis. Lymph nodes: Unremarkable. No enlarged lymph nodes. Urinary bladder: Unremarkable as visualized. Reproductive: Unremarkable as visualized. Bones/joints: No acute fracture. Soft tissues: The parenchymal organs are intact without laceration. IMPRESSION: 1. The parenchymal organs are intact without laceration. 2. No acute fracture. COMMENTS: Consistent with the [employer]'s Incidental Findings Committee white paper (J Am Jessica Radiol 2018): Any incidental renal lesion less than 1 cm or classified as too small to characterize, or any incidental cystic renal lesion characterized as simple-appearing, is likely benign. No follow-up imaging is recommended for these lesions per consensus recommendations based on imaging criteria. THIS DOCUMENT HAS BEEN ELECTRONICALLY SIGNED BY PARTH MARK MD Narrative 11/23/2024 7:33 PM EDT PROCEDURE INFORMATION: Exam: CT Chest With Contrast; Diagnostic Exam date and time: 11/23/2024 7:12 PM Age: 54 years old Clinical indication: Injury or trauma; Fall; Generalized; Blunt trauma (contusions or hematomas); Additional info: Significant trauma with possible severe intraabdominal injury or abdominal pain TECHNIQUE: Imaging protocol: Diagnostic computed tomography of the chest with contrast. 3D rendering (Not supervised by [...] Contrast route: INTRAVENOUS (IV); COMPARISON: DX XR CHEST 1 VIEW 11/23/2024 7:05 PM FINDINGS: Tubes, catheters and devices: Aortic valve [...] No acute fracture. No pneumothorax. Soft tissues: Unremarkable. Procedure Note Parth Mark MD - 11/23/2024 PROCEDURE INFORMATION: Exam: CT Chest With Contrast; Diagnostic Exam date and time: 11/23/2024 7:12 PM Age: 54 years old Clinical indication: Injury or trauma; Fall; Generalized; Blunt trauma (contusions or hematomas); Additional info: Significant trauma withpossible severe intraabdominal injury or abdominal pain TECHNIQUE: Imaging protocol: Diagnostic computed tomography of the chest withcontrast. 3D rendering (Not supervised by radiologist): MIP and/or 3D reconstructed images were created by the technologist. Radiation optimization: All CT scans at this facility use at least one ofthese dose optimization techniques: automated exposure control; mA and/or kV adjustment per patient size (includes targeted exams where dose is matchedto clinical indication); or iterative reconstruction. Contrast material: ISOVUE 370; Contrast volume: 80 ml; Contrast route: INTRAVENOUS (IV); COMPARISON: DX XR CHEST 1 VIEW 11/23/2024 7:05 PM FINDINGS: Tubes, catheters and devices: Aortic valve prosthesis. Aneurysmalascending thoracic aorta 5.3 cm greatest diameter without dissection or leak.Limited atherosclerosis. Lungs: See "Pleural spaces" finding. Pleural spaces: No lobar consolidation, pleural effusion or pulmonaryedema. Heart: Unremarkable. No cardiomegaly. No pericardial effusion. Coronary arteries: Minimal coronary artery calcifications. Lymph nodes: Unremarkable. No enlarged lymph nodes. Vasculature: See "Tubes, catheters and devices" finding. Bones/joints: Median sternotomy. No acute fracture. No pneumothorax. Soft tissues: Unremarkable. IMPRESSION IMPRESSION: 1. No lobar consolidation, pleural effusion or pulmonary edema. 2. No acute fracture. No pneumothorax. PROCEDURE INFORMATION: Exam: CT Abdomen And Pelvis With Contrast Exam date and time: 11/23/2024 7:12 PM Age: 54 years old Clinical indication: Injury or trauma; Fall; Generalized; Blunt trauma (contusions or hematomas); Additional info: Significant trauma withpossible severe intraabdominal injury or abdominal pain TECHNIQUE: Imaging protocol: Computed tomography of the abdomen and pelvis withcontrast. 3D rendering (Not supervised by radiologist): MIP and/or 3D reconstructed images were created by the technologist. Radiation optimization: All CT scans at this facility use at least one ofthese dose optimization techniques: automated exposure control; mA and/or kV adjustment per patient size (includes targeted exams where dose is matchedto clinical indication); or iterative reconstruction. Contrast material: ISOVUE 370; Contrast volume: 80 ml; Contrast route: INTRAVENOUS (IV); COMPARISON: DX XR PELVIS 1 VIEW 11/23/2024 7:07 PM FINDINGS: Lungs: Fairly extensive parenchymal scarring of the kidneys. Tiny renalcysts. Punctate nonobstructive stone right kidney. Liver: Tiny hepatic probable cysts some too small to fully characterize. Gallbladder and biliary ducts: Normal. No calcified stones. No ductaldilation. Pancreas: Normal. No ductal dilation. Spleen: Normal. No splenomegaly. Adrenal glands: Normal. No mass. Kidneys and ureters: See "Lungs" finding. Stomach and bowel: Limited diverticulosis. Appendix: Normal appendix. Intraperitoneal space: Unremarkable. No free air. No significant fluid collection. Vasculature: Limited atherosclerosis. Lymph nodes: Unremarkable. No enlarged lymph nodes. Urinary bladder: Unremarkable as visualized. Reproductive: Unremarkable as visualized. Bones/joints: No acute fracture. Soft tissues: The parenchymal organs are intact without laceration. IMPRESSION: 1. The parenchymal organs are intact without laceration. 2. No acute fracture. COMMENTS: Consistent with the [employer]'s Incidental Findings Committee white paper (J Am Jessica Radiol 2018): Any incidental renal lesionless than 1 cm or classified as too small to characterize, or any incidentalcystic renal lesion characterized as simple-appearing, is likely benign. Nofollow-up imaging is recommended for these lesions per consensus recommendationsbased on imaging criteria. THIS DOCUMENT HAS BEEN ELECTRONICALLY SIGNED BY PARTH MARK MD Carey Espinal DO RAD CT Final Result * CT CHEST W CONTRAST (11/23/2024 7:20 PM EDT) Anatomical Region Laterality Modality Chest, Body, Cardio Computed Jaycob ography 11/23/2024 7:12 PM EDT Impressions 11/23/2024 7:33 PM EDT IMPRESSION: 1. No lobar consolidation, pleural effusion [...] the kidneys. Tiny renal cysts. Punctate nonobstructive stone right kidney. Liver: Tiny hepatic probable cysts some too small to fully characterize. Gallbladder and biliary ducts: Normal. No calcified stones. No ductal dilation. Pancreas: Normal. No ductal dilation. Spleen: Normal. No splenomegaly. Adrenal glands: Normal. No mass. Kidneys and ureters: See "Lungs" finding. Stomach and bowel: Limited diverticulosis. Appendix: Normal appendix. Intraperitoneal space: Unremarkable. No free air. No significant fluid collection. Vasculature: Limited atherosclerosis. Lymph nodes: Unremarkable. No enlarged lymph nodes. Urinary bladder: Unremarkable as visualized. Reproductive: Unremarkable as visualized. Bones/joints: No acute fracture. Soft tissues: The parenchymal organs are intact without laceration. IMPRESSION: 1. The parenchymal organs are intact without laceration. 2. No acute fracture. COMMENTS: Consistent with the [employer] [employer]'s Incidental Findings Committee white paper (J Am Jessica Radiol 2018): Any incidental renal lesion less than 1 cm or classified as too small to characterize, or any incidental cystic renal lesion characterized as simple-appearing, is likely benign. No follow-up imaging is recommended for these lesions per consensus recommendations based on imaging criteria. THIS DOCUMENT HAS BEEN ELECTRONICALLY SIGNED BY PARTH MARK MD Narrative 11/23/2024 7:33 PM EDT PROCEDURE INFORMATION: Exam: CT Chest With Contrast; Diagnostic Exam date and time: 11/23/2024 7:12 PM Age: 54 years old Clinical indication: Injury or trauma; Fall; Generalized; Blunt trauma (contusions or hematomas); Additional info: Significant trauma with possible severe intraabdominal injury or abdominal pain TECHNIQUE: Imaging protocol: Diagnostic computed tomography of the chest with contrast. 3D rendering (Not supervised by [...] Contrast route: INTRAVENOUS (IV); COMPARISON: DX XR CHEST 1 VIEW 11/23/2024 7:05 PM FINDINGS: Tubes, catheters and devices: Aortic valve [...] No acute fracture. No pneumothorax. Soft tissues: Unremarkable. Procedure Note Parth Mark MD - 11/23/2024 PROCEDURE INFORMATION: Exam: CT Chest With Contrast; Diagnostic Exam date and time: 11/23/2024 7:12 PM Age: 54 years old Clinical indication: Injury or trauma; Fall; Generalized; Blunt trauma (contusions or hematomas); Additional info: Significant trauma withpossible severe intraabdominal injury or abdominal pain TECHNIQUE: Imaging protocol: Diagnostic computed tomography of the chest withcontrast. 3D rendering (Not supervised by radiologist): MIP and/or 3D reconstructed images were created by the technologist. Radiation optimization: All CT scans at this facility use at least one ofthese dose optimization techniques: automated exposure control; mA and/or kV adjustment per patient size (includes targeted exams where dose is matchedto clinical indication); or iterative reconstruction. Contrast material: ISOVUE 370; Contrast volume: 80 ml; Contrast route: INTRAVENOUS (IV); COMPARISON: DX XR CHEST 1 VIEW 11/23/2024 7:05 PM FINDINGS: Tubes, catheters and devices: Aortic valve prosthesis. Aneurysmalascending thoracic aorta 5.3 cm greatest diameter without dissection or leak.Limited atherosclerosis. Lungs: See "Pleural spaces" finding. Pleural spaces: No lobar consolidation, pleural effusion or pulmonaryedema. Heart: Unremarkable. No cardiomegaly. No pericardial effusion. Coronary arteries: Minimal coronary artery calcifications. Lymph nodes: Unremarkable. No enlarged lymph nodes. Vasculature: See "Tubes, catheters and devices" finding. Bones/joints: Median sternotomy. No acute fracture. No pneumothorax. Soft tissues: Unremarkable. IMPRESSION IMPRESSION: 1. No lobar consolidation, pleural effusion or pulmonary edema. 2. No acute fracture. No pneumothorax. PROCEDURE INFORMATION: Exam: CT Abdomen And Pelvis With Contrast Exam date and time: 11/23/2024 7:12 PM Age: 54 years old Clinical indication: Injury or trauma; Fall; Generalized; Blunt trauma (contusions or hematomas); Additional info: Significant trauma withpossible severe intraabdominal injury or abdominal pain TECHNIQUE: Imaging protocol: Computed tomography of the abdomen and pelvis withcontrast. 3D rendering (Not supervised by radiologist): MIP and/or 3D reconstructed images were created by the technologist. Radiation optimization: All CT scans at this facility use at least one ofthese dose optimization techniques: automated exposure control; mA and/or kV adjustment per patient size (includes targeted exams where dose is matchedto clinical indication); or iterative reconstruction. Contrast material: ISOVUE 370; Contrast volume: 80 ml; Contrast route: INTRAVENOUS (IV); COMPARISON: DX XR PELVIS 1 VIEW 11/23/2024 7:07 PM FINDINGS: Lungs: Fairly extensive parenchymal scarring of the kidneys. Tiny renalcysts. Punctate nonobstructive stone right kidney. Liver: Tiny hepatic probable cysts some too small to fully characterize. Gallbladder and biliary ducts: Normal. No calcified stones. No ductaldilation. Pancreas: Normal. No ductal dilation. Spleen: Normal. No splenomegaly. Adrenal glands: Normal. No mass. Kidneys and ureters: See "Lungs" finding. Stomach and bowel: Limited diverticulosis. Appendix: Normal appendix. Intraperitoneal space: Unremarkable. No free air. No significant fluid collection. Vasculature: Limited atherosclerosis. Lymph nodes: Unremarkable. No enlarged lymph nodes. Urinary bladder: Unremarkable as visualized. Reproductive: Unremarkable as visualized. Bones/joints: No acute fracture. Soft tissues: The parenchymal organs are intact without laceration. IMPRESSION: 1. The parenchymal organs are intact without laceration. 2. No acute fracture. COMMENTS: Consistent with the [employer] [place] [employer]'s Incidental Findings Committee white paper (J Am Jessica Radiol 2018): Any incidental renal lesionless than 1 cm or classified as too small to characterize, or any incidentalcystic renal lesion characterized as simple-appearing, is likely benign. Nofollow-up imaging is recommended for these lesions per consensus recommendationsbased on imaging criteria. THIS DOCUMENT HAS BEEN ELECTRONICALLY SIGNED BY PARTH MARK MD us Carey Espinal DO RAD CT Final Result * Imaging Interpretation (11/23/2024 7:18 PM EDT) Narrative Carey Saleem DO - 11/23/2024 7:18 PM EDT Carey Saleem DO 11/23/2024 9:34 PM Imaging Interpretation Date/Time: 11/23/2024 7:18 PM Performed by: Carey Saleem DO Authorized by: Carey Saleem DO Image type: Extremity Number of views: 2 Left views: Pelvis Comments: Degenerative heart disease bilateral hips. No acute fracture or dislocation. Carey Espinal DO PROCEDURE REPORT Final Result * CT C SPINE WO CONTRAST (11/23/2024 7:18 PM EDT) Anatomical Region Laterality Modality Cspine, Spine, Neck, Vertebra Co mputed Tomography 11/23/2024 7:09 PM EDT Impressions 11/23/2024 7:30 PM EDT IMPRESSION: 1. No acute bony abnormality. Degenerative changes of the cervical spine. If symptoms persist, consider further evaluation with MRI, if there are no contraindications to obtaining a MRI scan. 2. Asymmetric appearance of the piriform sinuses with relative effacement of the left side. Underlying mucosal lesion cannot be excluded. Recommend correlation with direct visualization. THIS DOCUMENT HAS BEEN ELECTRONICALLY SIGNED BY MD Madison MCCALL 11/23/2024 7:30 PM EDT PROCEDURE INFORMATION: Exam: CT Cervical Spine Without Contrast Exam date and time: 11/23/2024 7:09 PM Age: 54 years old Clinical indication: Injury or trauma; Fall; Blunt trauma; Additional info: Significant trauma with possible severe neurologic injury or neck pain TECHNIQUE: Imaging protocol: Computed tomography of the cervical spine without contrast. Radiation optimization: All CT scans at this facility use at least one of these dose optimization techniques: automated exposure control; mA and/or kV adjustment per patient size (includes targeted exams where dose is matched to clinical indication); or iterative reconstruction. COMPARISON: None FINDINGS: Bones/joints: The cervical vertebral body heights [...] be excluded. Recommend correlation with direct visualization. Procedure Note Leonardo Win MD - 11/23/2024 PROCEDURE INFORMATION: Exam: CT Cervical Spine Without Contrast Exam date and time: 11/23/2024 7:09 PM Age: 54 years old Clinical indication: Injury or trauma; Fall; Blunt trauma; Additionalinfo: Significant trauma with possible severe neurologic injury or neck pain TECHNIQUE: Imaging protocol: Computed tomography of the cervical spine withoutcontrast. Radiation optimization: All CT scans at this facility use at least one ofthese dose optimization techniques: automated exposure control; mA and/or kV adjustment per patient size (includes targeted exams where dose is matchedto clinical indication); or iterative reconstruction. COMPARISON: None FINDINGS: Bones/joints: The cervical vertebral body heights are maintained. Normal alignment. C2-C3: Broad-based disc osteophyte complex with mild central canalstenosis. Mild left neuroforaminal narrowing secondary to uncovertebral and facet hypertrophy. C3-C4: Broad-based disc osteophyte complex with mild central canalstenosis. Mild right and moderate left neuroforaminal narrowing secondary to uncovertebral and facet hypertrophy. C4-C5: Broad-based disc osteophyte complex with mild central canalstenosis. Severe right and moderate left neuroforaminal narrowing secondary to uncovertebral and facet hypertrophy. C5-C6: Broad-based disc osteophyte complex with mild central canalstenosis. Moderate bilateral neuroforaminal narrowing secondary to uncovertebral [...] be excluded. Recommend correlation with direct visualization. IMPRESSION IMPRESSION: 1. No acute bony abnormality. Degenerative changes of the cervicalspine. If symptoms persist, consider further evaluation with MRI, if there are no contraindications to obtaining a MRI scan. 2. Asymmetric appearance of the piriform sinuses with relativeeffacement of the left side. Underlying mucosal lesion cannot be excluded. Recommend correlation with direct visualization. THIS DOCUMENT HAS BEEN ELECTRONICALLY SIGNED BY LEONARDO WIN MD Carey Espinal DO RAD CT Final Result * Imaging Interpretation (11/23/2024 7:17 PM EDT) Narrative Carey Saleem DO - 11/23/2024 7:17 PM EDT Carey Saleem DO 11/23/2024 9:34 PM Imaging Interpretation Date/Time: 11/23/2024 7:17 PM Performed by: Carey Saleem DO Authorized by: Carey Saleem DO Image type: Chest Number of views: 3 Views: AP Lungs: Normal Negative findings: no atelectasis, no effusion, no hemopneumothorax, no hemothorax, no hyperinflation, no infiltrate, no nodule/mass, no ramsey-bronchial cuffing, no pneumothorax, no poor inspiration and no pulmonary edema Mediastinum: Normal Negative findings: no cardiomegaly, no mass, no pneumomediastinum/pericardium and no widening Bones: Normal Negative findings: no clavicle fracture, no rib(s) fracture, no scapula fracture and no shoulder fracture Abdomen: Normal Negative findings: no air-fluid levels and no free (sub-diaphagmatic) air Impression: No acute disease Compared to previous, findings are: Unchanged us Carey Espinal DO PROCEDURE REPORT Final Result * CT HEAD/BRAIN WO CONTRAST (11/23/2024 7:14 PM EDT) Anatomical Region Laterality Modality Head Computed Tomogra phy 11/23/2024 7:01 PM EDT Impressions 11/23/2024 7:31 PM EDT IMPRESSION: No acute intracranial abnormality. If symptoms persist, consider further evaluation with MRI, if there are no contraindications to obtaining a MRI scan. THIS DOCUMENT HAS BEEN ELECTRONICALLY SIGNED BY LEONARDO WIN MD Narrative 11/23/2024 7:31 PM EDT PROCEDURE INFORMATION: Exam: CT Head Without Contrast Exam date and time: 11/23/2024 7:01 PM Age: 54 years old Clinical indication: Injury or trauma; Fall; Blunt trauma (contusions or hematomas); Additional info: Significant trauma with possible severe neurologic injury or head pain TECHNIQUE: Imaging protocol: Computed tomography of the head without contrast. Radiation optimization: All CT scans at this facility use at least one of these dose optimization techniques: automated exposure control; mA and/or kV adjustment per patient size (includes targeted exams where dose is matched to clinical indication); or iterative reconstruction. COMPARISON: No relevant prior studies available. FINDINGS: Brain: Encephalomalacia involving the left temporal [...] Soft tissues: Visualized soft tissues are unremarkable. Procedure Note Leonardo Win MD - 11/23/2024 PROCEDURE INFORMATION: Exam: CT Head Without Contrast Exam date and time: 11/23/2024 7:01 PM Age: 54 years old Clinical indication: Injury or trauma; Fall; Blunt trauma (contusions or hematomas); Additional info: Significant trauma with possible severeneurologic injury or head pain TECHNIQUE: Imaging protocol: Computed tomography of the head without contrast. Radiation optimization: All CT scans at this facility use at least one ofthese dose optimization techniques: automated exposure control; mA and/or kV adjustment per patient size (includes targeted exams where dose is matchedto clinical indication); or iterative reconstruction. COMPARISON: No relevant prior studies available. FINDINGS: Brain: Encephalomalacia involving the left temporal lobe left basalganglia and left centrum semiovale compatible with old injury. No acute confluentlobar ischemic infarct. No acute intracranial hemorrhage. Cerebral ventricles: Ex vacuo dilation of the left lateral ventricle. Paranasal sinuses: No fluid levels. Mastoid air cells: Visualized mastoid air cells are well aerated. Bones: No acute calvarial fracture. Soft tissues: Visualized soft tissues are unremarkable. IMPRESSION IMPRESSION: No acute intracranial abnormality. If symptoms persist, consider further evaluation with MRI, if there are no contraindications to obtaining a MRIscan. THIS DOCUMENT HAS BEEN ELECTRONICALLY SIGNED BY LEONARDO WIN MD Carey Carolyn Brosius Bolick DO RAD CT Final Result * XR PELVIS 1 VIEW (11/23/2024 7:13 PM EDT) Anatomical Region Laterality Modality Pelvis, Lower Extremity Computed Radiography 11/23/2024 7:07 PM EDT Impressions 11/23/2024 7:34 PM EDT IMPRESSION: No fracture seen on trauma AP views of the pelvis. THIS DOCUMENT HAS BEEN ELECTRONICALLY SIGNED BY PARTH MARK MD Narrative 11/23/2024 7:34 PM EDT PROCEDURE INFORMATION: Exam: XR Pelvis Exam date and time: 11/23/2024 7:07 PM Age: 54 years old Clinical indication: Injury or trauma; Fall; Blunt trauma (contusions or hematomas); Does not apply; Hip TECHNIQUE: Imaging protocol: Radiologic exam of the pelvis. Views: 1 or 2 view. COMPARISON: No relevant prior studies available. FINDINGS: Bones/joints: No fracture seen on trauma AP views of the pelvis. Soft tissues: Unremarkable. Procedure Note Parth Mark MD - 11/23/2024 PROCEDURE INFORMATION: Exam: XR Pelvis Exam date and time: 11/23/2024 7:07 PM Age: 54 years old Clinical indication: Injury or trauma; Fall; Blunt trauma (contusions or hematomas); Does not apply; Hip TECHNIQUE: Imaging protocol: Radiologic exam of the pelvis. Views: 1 or 2 view. COMPARISON: No relevant prior studies available. FINDINGS: Bones/joints: No fracture seen on trauma AP views of the pelvis. Soft tissues: Unremarkable. IMPRESSION IMPRESSION: No fracture seen on trauma AP views of the pelvis. THIS DOCUMENT HAS BEEN ELECTRONICALLY SIGNED BY PARTH MARK MD Careymarleni Oakessius Bolick DO RADIOLOGY (RAD G ENERAL) Final Result * XR CHEST 1 VIEW (11/23/2024 7:12 PM EDT) Anatomical Region Laterality Modality Chest Computed Radiogr aphy 11/23/2024 7:05 PM EDT Impressions 11/23/2024 7:35 PM EDT IMPRESSION: No lobar consolidation, pleural effusion or pulmonary edema. THIS DOCUMENT HAS BEEN ELECTRONICALLY SIGNED BY PARTH MARK MD Narrative 11/23/2024 7:35 PM EDT PROCEDURE INFORMATION: Exam: XR Chest Exam date and time: 11/23/2024 7:05 PM Age: 54 years old Clinical indication: Injury or trauma; Fall; Blunt trauma (contusions or hematomas) TECHNIQUE: Imaging protocol: Radiologic exam of the chest. Views: 1 view. COMPARISON: No relevant prior studies available. FINDINGS: Lungs: No lobar consolidation, pleural effusion or pulmonary edema. Pleural spaces: See "Lungs" finding. 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 Bones/joints: Median sternotomy. Procedure Note Parth Mark MD - 11/23/2024 PROCEDURE INFORMATION: Exam: XR Chest Exam date and time: 11/23/2024 7:05 PM Age: 54 years old Clinical indication: Injury or trauma; Fall; Blunt trauma (contusions or hematomas) TECHNIQUE: Imaging protocol: Radiologic exam of the chest. Views: 1 view. COMPARISON: No relevant prior studies available. FINDINGS: Lungs: No lobar consolidation, pleural effusion or pulmonary edema. Pleural spaces: See "Lungs" finding. 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 Bones/joints: Median sternotomy. IMPRESSION IMPRESSION: No lobar consolidation, pleural effusion or pulmonary edema. THIS DOCUMENT HAS BEEN ELECTRONICALLY SIGNED BY PARTH MARK MD Carey Espinal DO RADIOLOGY (RAD G ENERAL) Final Result * ABO/RH (11/23/2024 7:02 PM EDT) ABO A 11/23/2024 9:57 PM EDT LAB[facility] Rh Positive 11/23/2024 9:57 PM EDT [facility] Blood Venous blood specimen / Unknown Venipuncture / Unknown 11/23/2024 7:02 PM EDT 11/23/2024 7:07 PM EDT [facility] [employer] [facility] [employer] [facility] T EST ORDERABLES Final Result LAB[facility]AT[facility] [address] [place] [address] * TROPONIN T, HIGH SENSITIVITY (11/23/2024 7:02 PM EDT) Pathologist [facility] Troponin T, High Sensitivity 12 <=22 ng/L 11/23/2024 8:07 PM EDT [facility]ATORY [facility] Blood Venous blood specimen / Unknown Venipuncture / Unknown 11/23/2024 7:02 PM EDT 11/23/2024 7:07 PM EDT [facility]LO[facility] ORDERA BLES Final Result Performing Organization Address City/[facility]/ZIP Co de Phone Number LABORATORY [address] [phone] * CK (11/23/2024 7:02 PM EDT) [facility] CK 250 39 - 308 U/L 11/23/2024 7:53 PM EDT [facility]ATORY [facility] Blood Venous blood specimen / Unknown Venipuncture / Unknown 11/23/2024 7:02 PM EDT 11/23/2024 7:07 PM EDT [facility] BLOOD ORDERA BLES Final Result Performing Organization Address City/[facility]/ZIP Co de Phone Number LABORATORY [address] [phone] * DIFFERENTIAL, AUTOMATED (11/23/2024 7:02 PM EDT) [facility] WBC 7.06 4.00 - 10.80 K/uL 11/23/2024 7:11 PM EDT LAB[facility]ATORY [facility] Neutrophils % 68.3 40.0 - 75.0 % 11/23/2024 7:11 PM EDT LAB[facility]ATORY [facility] Lymphocytes % 23.5 18.0 - 42.0 % 11/23/2024 7:11 PM EDT LAB[facility]ATORY [facility] Monocytes % 6.9 1.0 - 11.0 % 11/23/2024 7:11 PM EDT LAB[facility]ATORY [facility] Eosinophils % 1.0 0.0 - 6.0 % 11/23/2024 7:11 PM EDT LAB[facility]ATORY [facility] Basophils % 0.3 0.0 - 2.0 % 11/23/2024 7:11 PM EDT LAB[facility]ATORY [facility] Absolute Neutrophils 4.82 1.80 - 7.70 K/uL 11/23/2024 7:11 PM EDT LAB[facility]ATORY [facility] Absolute Lymphocytes 1.66 1.00 - 4.80 K/ul 11/23/2024 7:11 PM EDT LAB[facility]ATORY [facility] Absolute Monocytes 0.49 0.00 - 1.10 K/uL 11/23/2024 7:11 PM EDT LAB[facility]ORY [facility] Absolute Eosinophils 0.07 0.00 - 0.70 K/uL 11/23/2024 7:11 PM EDT LAB[facility]ATORY [facility] Absolute Basophils 0.02 0.00 - 0.20 K/uL 11/23/2024 7:11 PM EDT LAB[facility]ATORY [facility] Blood Venous blood specimen / Unknown Venipuncture / Unknown 11/23/2024 7:02 PM EDT 11/23/2024 7:07 PM EDT Carey Espinal DO LAB BLOOD ORDERA BLES Final Result LABORATORY [address] [place] [address] * CBC (11/23/2024 7:02 PM EDT) [facility] WBC 7.06 4.00 - 10.80 K/uL 11/23/2024 7:11 PM EDT LAB[facility]ATORY [facility] RBC 5.33 4.50 - 5.25 M/uL 11/23/2024 7:11 PM EDT LAB[facility]ATORY [facility] HGB 15.7 14.0 - 16.8 g/dL 11/23/2024 7:11 PM EDT LABORATORY [facility] HCT 45.9 40.0 - 48.4 % 11/23/2024 7:11 PM EDT LABORATORY [facility] MCV 86.1 82.0 - 99.5 fL 11/23/2024 7:11 PM EDT LABORATORY [facility] MCH 29.5 27.0 - 34.0 pg 11/23/2024 7:11 PM EDT LABORATORY [facility] MCHC 34.2 32.0 - 36.0 g/dL 11/23/2024 7:11 PM EDT LABORATORY [facility] RDW 14.8 11.5 - 15.5 % 11/23/2024 7:11 PM EDT LAB[facility]ATORY [facility] PLT 212 140 - 400 K/uL 11/23/2024 7:11 PM EDT LABORATORY [facility] MPV 12.1 6.6 - 11.1 fL 11/23/2024 7:11 PM EDT LAB[facility]ATORY [facility] Blood Venous blood specimen / Unknown Venipuncture / Unknown 11/23/2024 7:02 PM EDT 11/23/2024 7:07 PM EDT us Carey Espinal DO LAB BLOOD ORDERA BLES Final Result Performing Organization Address City/State/[facility] Co de Phone Number LABORATORY [address] [address] * TYPE AND SCREEN (11/23/2024 7:02 PM EDT) ABO A 11/23/2024 9:39 PM EDT LAB[facility] Rh Positive 11/23/2024 9:39 PM EDT [facility] Red Blood Cell Antibody Screen Negative 11/23/2024 9:39 PM EDT [facility] Specimen Expiration Date 11/26/2024 23:59 11/23/2024 9:39 PM EDT [facility] Blood Venous blood specimen / Unknown Venipuncture / Unknown 11/23/2024 7:02 PM EDT 11/23/2024 7:07 PM EDT [facility] LAB BLOOD BANK T EST ORDERABLES Final Result [facility] [address] [place] [address] * PT INR (11/23/2024 7:02 PM EDT) [facility] Prothrombin Time 14.5 11.6 - 15.2 seconds 11/23/2024 7:19 PM EDT LABORATORY [facility] INR 1.1 0.8 - 1.2 11/23/2024 7:19 PM EDT LABORATORY [facility] Blood Venous blood specimen / Unknown Venipuncture / Unknown 11/23/2024 7:02 PM EDT 11/23/2024 7:08 PM EDT Narrative LABORATORY [facility] - 11/23/2024 7:19 PM EDT Warfarin Therapy INR: 2.0-3.0 conventional anticoagulation INR: 2.5-3.5 high intensity anticoagulation [facility] LAB BLOOD ORDERA BLES Final Result LABORATORY [address] [address] * (ABNORMAL) LACTATE,WHOLE BLOOD (11/23/2024 7:02 PM EDT) [facility] Lactate 4.1(HH) 0.4 - 2.0 mmol/L 11/23/2024 7:10 PM EDT LABORATORY [facility] Blood Venous blood specimen / Unknown Venipuncture / Unknown 11/23/2024 7:02 PM EDT 11/23/2024 7:07 PM EDT [facility] LAB BLOOD ORDERA BLES Final Result LABORATORY [address] [address] * ETHANOL, MEDICAL (11/23/2024 7:02 PM EDT) Ethanol Negative Negative 11/23/2024 7:41 PM EDT LABORATORY [facility] Blood Venous blood specimen / Unknown Venipuncture / Unknown 11/23/2024 7:02 PM EDT 11/23/2024 7:07 PM EDT Carey Cristobalmargarita LAB BLOOD ORDERA BLES Final Result LABORATORY [address] [address] * (ABNORMAL) COMPREHENSIVE METABOLIC PANEL (11/23/2024 7:02 PM EDT) Pathologist [facility] BUN 18 6 - 20 mg/dL 11/23/2024 7:29 PM EDT LABORATORY [facility] CREATININE 1.1 0.6 - 1.2 mg/dL 11/23/2024 7:29 PM EDT LABORATORY [facility] EGFR 81 >=60 mL/min 11/23/2024 7:29 PM EDT LABORATORY [facility] Comment:eGFR is calculated b ased on the CKD-EPI 2020 equation. SODIUM 135 135 - 146 mmol/L 11/23/2024 7:29 PM EDT LABORATORY [facility] POTASSIUM 4.0 3.5 - 5.1 mmol/L 11/23/2024 7:29 PM EDT LABORATORY [facility] CHLORIDE 99 98 - 107 mmol/L 11/23/2024 7:29 PM EDT LAB[facility]ATORY [facility] CO2 18(L) 22 - 32 mmol/L 11/23/2024 7:29 PM EDT LABORATORY [facility] ANION GAP 18(H) 7 - 15 mmol/L 11/23/2024 7:29 PM EDT LABORATORY [facility] GLUCOSE 145(H) 70 - 120 mg/dL 11/23/2024 7:29 PM EDT LABORATORY [facility] Albumin 3.9 3.8 - 5.0 g/dL 11/23/2024 7:29 PM EDT LABORATORY [facility] AST 31 10 - 50 U/L 11/23/2024 7:29 PM EDT LABORATORY [facility] Alkaline Phosphatase 53 35 - 130 U/L 11/23/2024 7:29 PM EDT LABORATORY [facility] Bilirubin, Total 0.7 <=1.2 mg/dL 11/23/2024 7:29 PM EDT LABORATORY [facility] CALCIUM 9.0 8.4 - 10.2 mg/dL 11/23/2024 7:29 PM EDT LABORATORY [facility] Protein 6.8 6.0 - 8.3 g/dL 11/23/2024 7:29 PM EDT LABORATORY [facility] ALT 32 10 - 50 U/L 11/23/2024 7:29 PM EDT LABORATORY [facility] Blood Venous blood specimen / Unknown Venipuncture / Unknown 11/23/2024 7:02 PM EDT 11/23/2024 7:07 PM EDT [facility] LAB BLOOD ORDERA BLES Final Result Performing Organization Address [facility] Co de Phone Number LABORATORY [address] [phone] * EXTRA GREEN TOP WITH GEL (11/23/2024 7:01 PM EDT) Blood Venous blood specimen / Unknown 11/23/2024 7:01 PM EDT 11/23/2024 7:07 PM EDT [facility] LAB BLOOD ORDERA BLES Final Result Performing Organization Address 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 Cerebral thrombosis with cerebral infarction Syncope Syncope and collapse documented in this encounter Administered Medications Inactive Administered Medications - up to 3 most recent administrations Medication Order MAR Action Action Date Dose Rate Site Iopamidol (Isovue 370) inj 80 mL 80 mL, Intravenous, ONCE, On Thu11/23/24 at 2000, For 1 dose, Radiology Medication Routing (Non-IR) Given 11/23/2024 7:21 PM EDT 80 mL Iopamidol (Isovue 370) inj 80 mL 80 mL, Intravenous, ONCE, On Thu11/23/24 at 2100, For 1 dose, Radiology Medication Routing (Non-IR) Given 11/23/2024 8:18 PM EDT 80 mL NSS 0.9% 500 mL bolus infusion Intravenous, at 500 mL/hr Administer over 60 Minutes, Administer entire volume within 60 minutes or less., ONCE, 1 dose, On Thu11/23/24 at 1999 New Bag 11/23/2024 7:39 PM EDT 500 mL 500 mL/hr oxygen GAS Inhalation, OXYGEN, First dose on Thu11/23/24 at 1945, Until Discontinued, Device/Managed by: Low Flow Device, Goal SPO2 (%): 94 or greater, Starting Device: Nasal Cannula, Initial Flow Rate (LPM): 2, Lowest Support: Nasal Cannula: Flow 0-6 LPM. Titrate up/down by 1 LPM., Titration Interval: Q2 minutes and as needed., Notify Provider: For sudden DECREASE in resting SPO2 to less than 85% and when escalating delivery device., Wean patient off Oxygen when the oxygen saturation is greater than or equal to 93% sodium chloride 0.9 % flush peripheral oleg 3 mL 3 mL, IV Push, Q8H, First dose on Thu11/23/24 at 2200, Until Discontinued, Do not flush if lock, PICC, or central line not in place; IV infusing or unable to flush. documented in this encounter Active and Recently Administered Medications Times are shown in EDT. Scheduled Medication Order 11/21/2024 11/22/2024 11/23/2024 Iopamidol (Isovue 370) inj 80 mL (COMPLETED) 80 mL, Intravenous, ONCE, On Thu11/23/24 at 2000, For 1 dose, Radiology Medication Routing (Non-IR) 1920 (Given - Provid er: Peggy Shukla, RT (R)) Iopamidol (Isovue 370) inj 80 mL (COMPLETED) 80 mL, Intravenous, ONCE, On Thu11/23/24 at 2100, For 1 dose, Radiology Medication Routing (Non-IR) 2017 (Given - Provid er: RT Ethan (R)) NSS 0.9% 500 mL bolus infusion (COMPLETED) Intravenous, at 500 mL/hr Administer over 60 Minutes, Administer entire volume within 60 minutes or less., ONCE, 1 dose, On Thu11/23/24 at 2000 193 (New Bag - Prov ider: Hannah Faye RN)2038 (Stopped - Provider: Hannah Faye RN) oxygen GAS Inhalation, OXYGEN, First dose on Thu11/23/24 at 1945, Until Discontinued, Device/Managed by: Low Flow Device, Goal SPO2 (%): 94 or greater, Starting Device: Nasal Cannula, Initial Flow Rate (LPM): 2, Lowest Support: Nasal Cannula: Flow 0-6 LPM. Titrate up/down by 1 LPM., Titration Interval: Q2 minutes and as needed., Notify Provider: For sudden DECREASE in resting SPO2 to less than 85% and when escalating delivery device., Wean patient off Oxygen when the oxygen saturation is greater than or equal to 93% 1944 (Due) sodium chloride 0.9 % flush peripheral oleg 3 mL 3 mL, IV Push, Q8H, First dose on Thu11/23/24 at 2200, Until Discontinued, Do not flush if lock, PICC, or central line not in place; IV infusing or unable to flush. documented in this encounter Advance Directives * Full Code (Latest Code Status on File) Date Activated Date Inactivated Comments 11/24/2024 1:12 AM This order ref lects the patients wishes and were consensually agreed upon. Question Answer Comments Discussion of Advance Direct loli occurred with: Not Discussed due to patient's condition Care Teams Automatic Lathe Operator Relationship Specialty Start Date End Date Tai Bal PA-C PCP - General Physician [employer] Tooling Machine Operator 05/16/22 documented as of this encounter
--- OUTSIDE RECORDS SUMMARY | 2024-12-10 14:06 | External Medical Summary ---
Author Name Unknown Address Unknown Organization : Laboratory Report Ordering Provider Test Date Status FELICITA HUMMEL 11/24/2024 16:47:25 Final Observation Date Value Abnormality Reference (Units ) Status Glucose Point of Care 11/24/2024 16:47:25 216 Above high normal 70-120 (mg/dL) Final Performing Location
--- OUTSIDE RECORDS SUMMARY | 2024-12-10 14:06 | External Medical Summary ---
Author Name Unknown Address Unknown Organization K01:[facility]ATORY [facility] [place] [address] [place] [address] Laboratory Report Ordering Provider Test Date Status KATYA POP 11/24/2024 05:05:29 Final Observation Date Value Abnormality Reference (Units ) Status Triglyceride 11/24/2024 05:05:29 266 Above high normal <=174 (mg/dL) Final Triglyceride Reference Range s (mg/dL):
<150 Acceptable
150-174 Borderline high
175-499 High
>=500 Very high Cholesterol 11/24/2024 05:05:29 181 <200 (mg /dL) Final Total Cholesterol Reference Ranges (mg/dL):
<200 Desirable
200-239 Borderline high
>=240 High HDL 11/24/2024 05:05:29 52 >39 (mg/dL ) Final HDL Cholesterol Reference Ra nges (mg/dL):
>=60 High (Desirable)
<50 Low (Undesirable) For Females
<40 Low (Undesirable) For Males NON-HDL CHOLESTEROL 11/24/2024 05:05:29 129 <=159 (mg/dL) Final Non-HDL Cholesterol Referenc e Range (mg/dL):
<100 Target level for high risk ASCVD patient
<130 Optimal for general population
130-159 Near optimal for general population
160-189 Borderline High
190-219 High
>=220 Very High Performing Location LABORATORY [facility] [place] [address] [place] [address]
--- OUTSIDE RECORDS SUMMARY | 2024-12-10 14:06 | External Medical Summary ---
Author Name Unknown Address Unknown Organization K01:[facility] [place] [address] [place] [address] Laboratory Report Ordering Provider Test Date Status SAL PEARCE 11/24/2024 05:05:29 Final Observation Date Value Abnormality Reference (Units ) Status TSH 11/24/2024 05:05:29 1.32 0.27-4.20 (uIU/mL) Final Performing Location [facility] [place] [address] [place] [address]
--- OUTSIDE RECORDS SUMMARY | 2024-12-10 14:06 | External Medical Summary | Summary of Care ---
Author Name Unknown Organization [facility] Address [address] [place] [address] Phone [phone] Care Team Providers Care Jukebox Coin Collector Name Role Phone Tai Bal PA-C Primary Care Provide r Reason for Visit * Reason Comments Retrieval [facility] ED bed [facility] to [facility] * Auth/Cert Specialty Diagnoses / Procedures Referred By Contac t Referred To Contact [facility] [address] [place] [address] Referral ID Status Reason Start Date Expiration Date Visits Re quested Visits Authorized [id number] Encounter Details Date Type Department Care Team (Late st Contact Info) Description 11/23/2024 9:05 PM EDT [facility]ation [facility] [address] [place] [address] 4, [employer] [address] [place], [place] [phone] Embolic stroke (HCC)* Allergies Active Allergy Reactions [...] Admitted as an Inpatient: no Certifying Physician/Ordering Service:[facility] ED Physician - Travis Rosales D.O. [facility] [address] [place] [address] [place] of [place] (zip code required): Hospital - [facility], [address] [facility], [place] [address] Destination (Specify Name/Address): [facility] - [address] [place] [address]; [place] [address] Patient transported to nearest facility (capable of [...] Discussed due to patient's condition Care Teams Jukebox Coin Collector Relationship Specialty Start Date End Date Tai Bal PA-C PCP - General Physician Senior Validation Engineer 05/16/22 documented as of this encounter
--- OUTSIDE RECORDS SUMMARY | 2024-12-10 14:06 | External Medical Summary ---
Author Name Unknown Address Unknown Organization K01:[facility]ORY [facility] [place] [facility] [address] [place] [address] Laboratory Report Ordering Provider Test Date Status KATYA POP 11/24/2024 05:05:29 Final Observation Date Value Abnormality Reference (Units ) Status BUN 11/24/2024 05:05:29 16 6-20 (mg/dL) Final Creatinine 11/24/2024 05:05:29 1.1 0.6-1.2 (mg/dL) Final Glomerular filtration rate/1.73 sq M.predicted [Volume Rate/Area] in Serum, Plasma or Blood by Creatinine-based formula (CKD-EPI) 11/24/2024 05:05:29 76 >=60 (mL/min) Final eGFR is calculated based on the CKD-EPI 2020 equation. Sodium 11/24/2024 05:05:29 136 135-146 (m mol/L) Final Potassium 11/24/2024 05:05:29 4.8 3.5-5.1 (m mol/L) Final Cl 11/24/2024 05:05:29 102 98-107 (mm ol/L) Final CO2 11/24/2024 05:05:29 19 Below low normal 22- 32 (mmol/L) Final Anion gap 11/24/2024 05:05:29 15 7-15 (mmol /L) Final Glucose 11/24/2024 05:05:29 204 Above high normal 70 -120 (mg/dL) Final Calcium 11/24/2024 05:05:29 8.5 8.4-10.2 ( mg/dL) Final Performing Location [facility] [place] [address] [place] [address]
--- OUTSIDE RECORDS SUMMARY | 2024-12-10 14:06 | External Medical Summary ---
Author Name Unknown Address Unknown Organization K01:[facility]ORY [facility] [place] [facility] - [address] [place] [address] Laboratory Report Ordering Provider Test Date Status ROBB PATINO 11/23/2024 19:02:05 Fin al Observation Date Value Abnormality Reference (Units ) Status ABO 11/23/2024 19:02:05 A Final RH 11/23/2024 19:02:05 Positive Final RED BLOOD CELL ANTIBODY SCREEN 11/23/2024 19:02:05 Negative Final SPECIMEN EXPIRATION DATE 11/23/2024 19:02:05 11/26/2024 23:59 Final Performing Location LABOR[facility]ORY [facility] - [address] [place] [address]
--- OUTSIDE RECORDS SUMMARY | 2024-12-10 14:06 | External Medical Summary ---
Author Name Unknown Address Unknown Organization K1G:LABORATORY [facility] - [address] [facility] [address] Laboratory Report Ordering Provider Test Date Status ROBB PATINO 11/23/2024 19:02:05 Fin al Observation Date Value Abnormality Reference (Units ) Status BUN 11/23/2024 19:02:05 18 6-20 (mg/dL) Final Creatinine 11/23/2024 19:02:05 1.1 0.6-1.2 (mg/dL) Final Glomerular filtration rate/1.73 sq M.predicted [Volume Rate/Area] in Serum, Plasma or Blood by Creatinine-based formula (CKD-EPI) 11/23/2024 19:02:05 81 >=60 (mL/min) Final eGFR is calculated based on the CKD-EPI 2020 equation. Sodium 11/23/2024 19:02:05 135 135-146 (m mol/L) Final Potassium 11/23/2024 19:02:05 4.0 3.5-5.1 (m mol/L) Final Cl 11/23/2024 19:02:05 99 98-107 (mm ol/L) Final CO2 11/23/2024 19:02:05 18 Below low normal 22- 32 (mmol/L) Final Anion gap 11/23/2024 19:02:05 18 Above high normal 7- 15 (mmol/L) Final Glucose 11/23/2024 19:02:05 145 Above high normal 70 -120 (mg/dL) Final Albumin 11/23/2024 19:02:05 3.9 3.8-5.0 (g /dL) Final AST (Aspartate aminotransferase) 11/23/2024 19:02:05 31 10-50 (U/L) Fin al Alk Phos 11/23/2024 19:02:05 53 35-130 (U/ L) Final Bilirubin, Total 11/23/2024 19:02:05 0.7 <=1 .2 (mg/dL) Final Calcium 11/23/2024 19:02:05 9.0 8.4-10.2 ( mg/dL) Final Protein 11/23/2024 19:02:05 6.8 6.0-8.3 (g /dL) Final ALT (Alanine aminotransferase) 11/23/2024 19:02:05 32 10-50 (U/L) Isiah isms Performing Location LABORATORY [facility] [address]
--- OUTSIDE RECORDS SUMMARY | 2024-12-10 14:06 | External Medical Summary ---
Author Name Unknown Address Unknown Organization K01:LABORATORY [facility] [place] - [address] [place] [address] Laboratory Report Ordering Provider Test Date Status KATYA POP 11/24/2024 01:51:49 Final Observation Date Value Abnormality Reference (Units ) Status Lactic Acid 11/24/2024 01:51:49 2.3 Above high normal 0.4-2.0 (mmol/L) Final Performing Location LABORATORY C - [address] [place] [address]
--- OUTSIDE RECORDS SUMMARY | 2024-12-10 14:06 | External Medical Summary ---
Author Name Unknown Address Unknown Organization K01:[facility]ORY [facility] [place] [address] [place] [address] Laboratory Report Ordering Provider Test Date Status KATYA POP 11/24/2024 12:05:02 Final Observation Date Value Abnormality Reference (Units ) Status Lactic Acid 11/24/2024 12:05:02 3.5 Above high normal 0.4-2.0 (mmol/L) Final Performing Location LABORATORY C - [address] [place] [address]
--- OUTSIDE RECORDS SUMMARY | 2024-12-10 14:06 | External Medical Summary ---
Author Name Unknown Address Unknown Organization K01:[facility]ORY [facility] [place] [facility] - [address] [place] [address] Laboratory Report Ordering Provider Test Date Status ROBB PATINO 11/23/2024 19:02:05 Fin al Observation Date Value Abnormality Reference (Units ) Status ABO 11/23/2024 19:02:05 A Final RH 11/23/2024 19:02:05 Positive Final Performing Location LAB[facility] - [address] [place] [address]
--- OUTSIDE RECORDS SUMMARY | 2024-12-10 14:06 | External Medical Summary ---
Author Name Unknown Address Unknown Organization K01:LABORATORY C - [address] [place] [address] Laboratory Report Ordering Provider Test Date Status KATYA POP 11/24/2024 05:05:29 Final Observation Date Value Abnormality Reference (Units ) Status Phosphate 11/24/2024 05:05:29 5.1 Above high normal 2. 5-4.8 (mg/dL) Final Performing Location [facility] - [address] [place] [address]
--- OUTSIDE RECORDS SUMMARY | 2024-12-10 14:06 | External Medical Summary ---
Author Name Unknown Address Unknown Organization [id number]:LABORATORY [facility] [place] - [address] [facility] [place] [address] Laboratory Report Ordering Provider Test Date Status ALIE SERRANO 11/23/2024 23:04:35 Final Observation Date Value Abnormality Reference (Units ) Status Body temperature 11/23/2024 23:04:35 37.0 (C) Final pH of Arterial blood 11/23/2024 23:04:35 7.323 Below low normal 7.350-7.450 (units) Final Carbon dioxide [Partial pressure] in Arterial blood 11/23/2024 23:04:35 43.7 35.0-45.0 (mmHg) Final Oxygen [Partial pressure] in Arterial blood 11/23/2024 23:04:35 95.0 75.0-100.0 (mmHg) Final Base excess, Arterial 11/23/2024 23:04:35 -3.5 Below low normal -2.0-2.0 (mmol/L) Final Hemoglobin [Mass/volume] in Blood by Oximetry 11/23/2024 23:04:35 14.6 14.0-16.8 (g/dL) Final Oxyhemoglobin, Arterial (FO2HB) 11/23/2024 23:04:35 95.4 94.0-99.0 (% total Hgb) Final Carboxyhemoglobin 11/23/2024 23:04:35 1.0 <=1.5 (% total Hgb) Final Smokers: 0-9.0 % Methemoglobin 11/23/2024 23:04:35 0.6 <=1.5 (% total Hgb) Final Deoxyhemoglobin/Hemog lobin.total in Arterial blood 11/23/2024 23:04:35 3.0 0.0-5.0 (% total Hgb) Final Oxygen content in Arterial blood 11/23/2024 23:04:35 19.7 15.0-24.0 (%vol) Final Potassium, Whole Blood 11/23/2024 23:04:35 4.2 3.5-5.1 (mmol/L) Final Sodium, Whole Blood 11/23/2024 23:04:35 135 135-146 (mmol/L) Final Chloride, Whole Blood 11/23/2024 23:04:35 107 98-107 (mmol/L) Final Calcium.ionized [Moles/volume] in Blood by Ion-selective membrane electrode (ISE) 11/23/2024 23:04:35 1.05 Below low normal 1.13-1.32 (mmol/L) Final Anion gap, Whole Blood 11/23/2024 23:04:35 5.8 Below low normal 7.0-15.0 (mmol/L) Final Glucose, whole blood 11/23/2024 23:04:35 180 Above high normal 70-120 (mg/dL) Final Oxygen/Total gas setting [Volume Fraction] Ventilator 11/23/2024 23:04:35 Not Provided (%) Final O2 FLOW, ARTERIAL - [facility] 11/23/2024 23:04:35 Not Provided (L/min) Final Bicarbonate, Venous, POC (i-STAT) 11/23/2024 23:04:35 22.0 Below low normal 23.0-31.0 (mmol/L) Final Performing Location LABORATORY [facility] [place] - [address] [facility] [address]
--- OUTSIDE RECORDS SUMMARY | 2024-12-10 14:06 | External Medical Summary ---
Author Name Unknown Address Unknown Organization [id number]:LABORATORY [facility] [place] - [address] [place] [address] Laboratory Report Ordering Provider Test Date Status KATYA POP 11/24/2024 05:05:29 Final Observation Date Value Abnormality Reference (Units ) Status Lactic Acid 11/24/2024 05:05:29 3.8 Above high normal 0.4-2.0 (mmol/L) Final Performing Location LABORATORY [facility] - [address] [place] [address]
--- OUTSIDE RECORDS SUMMARY | 2024-12-10 14:06 | External Medical Summary ---
Author Name Unknown Address Unknown Organization K01:LABORATORY [facility] [place] - [facility] [address] [facility] [address] Laboratory Report Ordering Provider Test Date Status KATYA POP 11/24/2024 05:05:29 Final Observation Date Value Abnormality Reference (Units ) Status WBC, Total 11/24/2024 05:05:29 16.49 Above high normal 4.00-10.80 (K/uL) Final RBC 11/24/2024 05:05:29 4.43 4.50-5.25 (M/uL) Final Hemoglobin 11/24/2024 05:05:29 13.2 Below low normal 14.0-16.8 (g/dL) Final HCT 11/24/2024 05:05:29 39.4 Below low normal 40.0-48.4 (%) Final MCV 11/24/2024 05:05:29 88.9 82.0-99.5 (fL) Final MCH 11/24/2024 05:05:29 29.8 27.0-34.0 (pg) Final MCHC 11/24/2024 05:05:29 33.5 32.0-36.0 (g/dL) Final RDW 11/24/2024 05:05:29 14.5 11.5-15.5 (%) Final Platelets 11/24/2024 05:05:29 177 140-400 (K/uL) Final MPV 11/24/2024 05:05:29 11.7 6.6-11.1 (fL) Final Nucleated erythrocytes/100 leukocytes [Ratio] in Blood by Automated count 11/24/2024 05:05:29 0 <=0 (/100 WBCs) Final Performing Location LABORATORY [facility] [place] - [address] [place] [address]
--- OUTSIDE RECORDS SUMMARY | 2024-12-10 14:06 | External Medical Summary ---
Author Name Unknown Address Unknown Organization K01:LABORATORY [place] [address] [facility] [address] Laboratory Report Ordering Provider Test Date Status KATYA POP 11/24/2024 01:51:49 Final Observation Date Value Abnormality Reference (Units ) Status Clot formation [Time] in Blood by Thromboelastography 11/24/2024 01:51:49 5.2 2.5-8.3 (minutes) Final Clot strength in Blood by Thromboelastography 11/24/2024 01:51:49 1.3 0.5-3.7 (minutes) Final Clot angle in Blood by Thromboelastography 11/24/2024 01:51:49 70.9 46.8-78.4 (degrees) Final Maximum clot firmness [Length] in Blood by Thromboelastography 11/24/2024 01:51:49 72.2 50.6-72.5 (mm) Final Coagulation index in Blood b y Thromboelastography 11/24/2024 01:51:49 2.6 -3.0-3.0 Final Clot Lysis [Length fraction] in Blood by Thromboelastography --30 minutes post maximum clot amplitude 11/24/2024 01:51:49 0.0 0.0-7.5 (%) Final Performing Location LABORATORY [facility] [place] - [facility] [address] [facility] [address]
--- OUTSIDE RECORDS SUMMARY | 2024-12-10 14:06 | External Medical Summary ---
Author Name Unknown Address Unknown Organization K1G:LABORATORY [facility] - [address] [place] [phone] Laboratory Report Ordering Provider Test Date Status ROBB PATINO 11/23/2024 19:02:05 Fin al Observation Date Value Abnormality Reference (Units ) Status CK 11/23/2024 19:02:05 250 39-308 (U/ L) Final Performing Location LABORATORY [facility] - [address] [place] [phone]
--- OUTSIDE RECORDS SUMMARY | 2024-12-10 14:06 | External Medical Summary ---
Author Name Unknown Address Unknown Organization K1G:LABORATORY [facility] - [address] [place] [id number] Laboratory Report Ordering Provider Test Date Status ROBB PATINO 11/23/2024 19:02:05 Fin al Warfarin Therapy
INR: 2 .0-3.0 conventional anticoagulation
INR: 2.5- 3.5 high intensity anticoagulation Observation Date Value Abnormality Reference (Units ) Status PT 11/23/2024 19:02:05 14.5 11.6-15.2 (seconds) Final INR 11/23/2024 19:02:05 1.1 0.8-1.2 Final Performing Location LABORATORY [facility] [address] [facility] [phone]
--- OUTSIDE RECORDS SUMMARY | 2024-12-10 14:06 | External Medical Summary ---
Author Name Unknown Address Unknown Organization K01:[place]ATORY [facility] [place] [address] [facility] [address] Laboratory Report Ordering Provider Test Date Status KATYA POP 11/24/2024 01:51:49 Final Observation Date Value Abnormality Reference (Units ) Status BUN 11/24/2024 01:51:49 17 6-20 (mg/dL) Final Creatinine 11/24/2024 01:51:49 1.1 0.6-1.2 (mg/dL) Final Glomerular filtration rate/1.73 sq M.predicted [Volume Rate/Area] in Serum, Plasma or Blood by Creatinine-based formula (CKD-EPI) 11/24/2024 01:51:49 80 >=60 (mL/min) Final eGFR is calculated based on the CKD-EPI 2020 equation. Sodium 11/24/2024 01:51:49 134 Below low normal 135 -146 (mmol/L) Final Potassium 11/24/2024 01:51:49 4.6 3.5-5.1 (m mol/L) Final Cl 11/24/2024 01:51:49 102 98-107 (mm ol/L) Final CO2 11/24/2024 01:51:49 20 Below low normal 22- 32 (mmol/L) Final Anion gap 11/24/2024 01:51:49 12 7-15 (mmol /L) Final Glucose 11/24/2024 01:51:49 191 Above high normal 70 -120 (mg/dL) Final Calcium 11/24/2024 01:51:49 8.7 8.4-10.2 ( mg/dL) Final Performing Location [facility] [place] [address] [place] [address]
--- OUTSIDE RECORDS SUMMARY | 2024-12-10 14:06 | External Medical Summary ---
Author Name Unknown Address Unknown Organization [id number]:LABORATORY [facility] - [address] [place] [phone] Laboratory Report Ordering Provider Test Date Status ROBB PATINO 11/23/2024 19:02:05 Fin al Observation Date Value Abnormality Reference (Units ) Status WBC, Total 11/23/2024 19:02:05 7.06 4.00-10.8 0 (K/uL) Final RBC 11/23/2024 19:02:05 5.33 4.50-5.25 (M/uL) Final Hemoglobin 11/23/2024 19:02:05 15.7 14.0-16.8 (g/dL) Final HCT 11/23/2024 19:02:05 45.9 40.0-48.4 (%) Final MCV 11/23/2024 19:02:05 86.1 82.0-99.5 (fL) Final MCH 11/23/2024 19:02:05 29.5 27.0-34.0 (pg) Final MCHC 11/23/2024 19:02:05 34.2 32.0-36.0 (g/dL) Final RDW 11/23/2024 19:02:05 14.8 11.5-15.5 (%) Final Platelets 11/23/2024 19:02:05 212 140-400 (K /uL) Final MPV 11/23/2024 19:02:05 12.1 6.6-11.1 ( fL) Final Performing Location LABORATORY [facility] - [address] [place] [phone]
--- OUTSIDE RECORDS SUMMARY | 2024-12-10 14:06 | External Medical Summary ---
Author Name Unknown Address Unknown Organization K01:[place] [place] [address] [place] [address] [place] [address] Laboratory Report Ordering Provider Test Date Status KATYA POP 11/24/2024 02:08:03 Final Observation Date Value Abnormality Reference (Units ) Status Methicillin resistant Staphylococcus aureus (MRSA) DNA [Presence] in Nose by BEVERLEY with probe detection 11/24/2024 02:08:03 Negative Negative Final No Methicillin resistant Sta phylococcus aureus detected by PCR (amplified probe). Performing Location [facility] - [address] [facility] [address]
--- OUTSIDE RECORDS SUMMARY | 2024-12-10 14:06 | External Medical Summary ---
Author Name Unknown Address Unknown Organization K01:[facility]ATORY [facility] [place] - [address] [place] [address] Laboratory Report Ordering Provider Test Date Status ALIE SERRANO 11/23/2024 23:45:02 Final Observation Date Value Abnormality Reference (Units ) Status Lactic Acid, Whole Blood 11/23/2024 23:45:02 2.3 Above high normal 0.4-2.0 (mmol/L) Final Performing Location LABORATORY [facility] [place] - [address] [place] [address]
--- OUTSIDE RECORDS SUMMARY | 2024-12-10 14:06 | External Medical Summary ---
Author Name Unknown Address Unknown Organization K01:LABORATORY [facility] - [address] [place] [address] Laboratory Report Ordering Provider Test Date Status KATYA POP 11/24/2024 05:05:29 Final Observation Date Value Abnormality Reference (Units ) Status Magnesium 11/24/2024 05:05:29 2.3 1.5-2.6 (m g/dL) Final Performing Location [facility] - [address] [place] [address]
--- OUTSIDE RECORDS SUMMARY | 2024-12-10 14:06 | External Medical Summary ---
Author Name Unknown Address Unknown Organization K01:LABORATORY [facility] [place] - [facility] [address] [place] [address] Laboratory Report Ordering Provider Test Date Status KATYA POP 11/24/2024 01:51:49 Final Observation Date Value Abnormality Reference (Units ) Status WBC, Total 11/24/2024 01:51:49 17.22 Above high normal 4.00-10.80 (K/uL) Final RBC 11/24/2024 01:51:49 4.60 4.50-5.25 (M/uL) Final Hemoglobin 11/24/2024 01:51:49 13.6 Below low normal 14.0-16.8 (g/dL) Final HCT 11/24/2024 01:51:49 40.6 40.0-48.4 (%) Final MCV 11/24/2024 01:51:49 88.3 82.0-99.5 (fL) Final MCH 11/24/2024 01:51:49 29.6 27.0-34.0 (pg) Final MCHC 11/24/2024 01:51:49 33.5 32.0-36.0 (g/dL) Final RDW 11/24/2024 01:51:49 14.2 11.5-15.5 (%) Final Platelets 11/24/2024 01:51:49 189 140-400 (K/uL) Final MPV 11/24/2024 01:51:49 11.8 6.6-11.1 (fL) Final Nucleated erythrocytes/100 leukocytes [Ratio] in Blood by Automated count 11/24/2024 01:51:49 0 <=0 (/100 WBCs) Final Performing Location LABORATORY [facility] [place] - [address] [place] [address]
--- OUTSIDE RECORDS SUMMARY | 2024-12-10 14:06 | External Medical Summary ---
Author Name Unknown Address Unknown Organization K01:LABORATORY [facility] [place] - [address] [facility] [address] Laboratory Report Ordering Provider Test Date Status KATYA POP 11/24/2024 05:05:29 Final Observation Date Value Abnormality Reference (Units ) Status HbA1C 11/24/2024 05:05:29 6.6 Above high normal 4. 0-5.6 (%) Final The use of HbA1c to monitor glycemic status is based on normal hemoglobin and HbA composition. This test should not be used in patients with abnormal hemoglobin that affects the half life of the red blood cell or the in vivo glycation rates. Glucose, estimated average 11/24/2024 05:05:29 143 Above high normal <126 (mg/dL) Isiah sims Performing Location LABORATORY [facility] [place] - [address] [facility] [address] [facility] [address]
--- OUTSIDE RECORDS SUMMARY | 2024-12-10 14:06 | External Medical Summary ---
Author Name Unknown Address Unknown Organization : Laboratory Report Ordering Provider Test Date Status TORIN SEPULVEDA 11/24/2024 12:08:47 Final Observation Date Value Abnormality Reference (Units ) Status Glucose Point of Care 11/24/2024 12:08:47 164 Above high normal 70-120 (mg/dL) Final Performing Location
--- OUTSIDE RECORDS SUMMARY | 2024-12-10 14:06 | External Medical Summary ---
Author Name Unknown Address Unknown Organization K01:LABORATORY [facility] - [address] [place] [address] Laboratory Report Ordering Provider Test Date Status KATYA POP 11/24/2024 01:51:49 Final Observation Date Value Abnormality Reference (Units ) Status Phosphate 11/24/2024 01:51:49 4.9 Above high normal 2. 5-4.8 (mg/dL) Final Performing Location LAB[facility] - [address] [place] [address]
--- OUTSIDE RECORDS SUMMARY | 2024-12-10 14:06 | External Medical Summary ---
Author Name Unknown Address Unknown Organization K01:LABORATORY [facility] [place] [address] [place] [address] Laboratory Report Ordering Provider Test Date Status KATYA POP 11/24/2024 18:07:49 Final Observation Date Value Abnormality Reference (Units ) Status Lactic Acid 11/24/2024 18:07:49 1.9 0.4-2.0 (mmol/L) Final Performing Location LABORATORY [facility] - [address] [place] [address]
--- OUTSIDE RECORDS SUMMARY | 2024-12-10 14:06 | External Medical Summary ---
Author Name Unknown Address Unknown Organization K01:LABORATORY [place] - [address] [place] [address] Laboratory Report Ordering Provider Test Date Status KATYA POP 11/24/2024 01:51:49 Final Observation Date Value Abnormality Reference (Units ) Status Calcium.ionized [Moles/volume] in Blood by Ion-selective membrane electrode (ISE) 11/24/2024 01:51:49 1.22 1.13-1.32 (mmol/L) Final Performing Location LABORATORY [place] - [address] [place] [address]
--- OUTSIDE RECORDS SUMMARY | 2024-12-10 14:06 | External Medical Summary ---
Author Name Unknown Address Unknown Organization K01:LABORATORY [place] [address] [place] [address] Laboratory Report Ordering Provider Test Date Status KATYA POP 11/24/2024 01:51:49 Final Observation Date Value Abnormality Reference (Units ) Status Clot formation [Time] in Blood by Thromboelastography 11/24/2024 01:51:49 4.8 2.5-8.3 (minutes) Final Clot strength in Blood by Thromboelastography 11/24/2024 01:51:49 1.5 0.5-3.7 (minutes) Final Clot angle in Blood by Thromboelastography 11/24/2024 01:51:49 68.1 46.8-78.4 (degrees) Final Maximum clot firmness [Length] in Blood by Thromboelastography 11/24/2024 01:51:49 69.2 50.6-72.5 (mm) Final Coagulation index in Blood b y Thromboelastography 11/24/2024 01:51:49 2.1 -3.0-3.0 Final Clot Lysis [Length fraction] in Blood by Thromboelastography --30 minutes post maximum clot amplitude 11/24/2024 01:51:49 0.0 0.0-7.5 (%) Final Performing Location [place] [facility] [place] [facility] [place] [address]
--- OUTSIDE RECORDS SUMMARY | 2024-12-10 14:06 | External Medical Summary ---
Author Name Unknown Address Unknown Organization K01:LAB[facility]ATORY [facility] [place] [address] [place] [address] Laboratory Report Ordering Provider Test Date Status KATYA POP 11/24/2024 01:51:49 Final Warfarin Therapy
INR: 2 .0-3.0 conventional anticoagulation
INR: 2.5- 3.5 high intensity anticoagulation Observation Date Value Abnormality Reference (Units ) Status PT 11/24/2024 01:51:49 14.5 11.6-15.2 (seconds) Final INR 11/24/2024 01:51:49 1.1 0.8-1.2 Final Performing Location LABORATORY [facility] [place] [address] [place] [address]
--- OUTSIDE RECORDS SUMMARY | 2024-12-10 14:06 | External Medical Summary ---
Author Name Unknown Address Unknown Organization : Laboratory Report Ordering Provider Test Date Status TORIN SEPULVEDA 11/24/2024 00:37:23 Final Observation Date Value Abnormality Reference (Units) Status Blood draw [PhenX] 11/24/2024 00:37:23 Arterial Draw Final pH, POC (i-STAT) 11/24/2024 00:37:23 7.296 Below low normal 7.350-7.450 Final PCO2 POC (i-STAT) 11/24/2024 00:37:23 39.9 35.0-45.0 (mm Hg) Final PO2 POC (i-STAT) 11/24/2024 00:37:23 170 Above high normal 75-100 (mm Hg) Final Base excess standard in Arterial blood by calculation 11/24/2024 00:37:23 -7 Below low normal -2-2 (mmol/L) Final Bicarbonate, Venous, POC (i-STAT) 11/24/2024 00:37:23 19.5 Below low normal 23.0-31.0 (mmol/L) Final O2 Sat, calculated POC (i-STAT) 11/24/2024 00:37:23 99.0 Above high normal 94.0-98.0 (%) Final Glucose, whole blood 11/24/2024 00:37:23 176 Above high normal 70-120 (mg/dL) Final Potassium, Whole Blood 11/24/2024 00:37:23 4.0 3.5-5.1 (mmol/L) Final Sodium, Whole Blood 11/24/2024 00:37:23 136 135-146 (mmol/L) Final Calcium, Ionized, Whole Blood 11/24/2024 00:37:23 1.10 Below low normal 1.13-1.32 (mmol/L) Final Hemoglobin POC (i-STAT) 11/24/2024 00:37:23 11.9 Below low normal 14.0-16.8 (g/dL) Final HCT 11/24/2024 00:37:23 35 Below low normal 40-48 (%) Final Performing Location
--- OUTSIDE RECORDS SUMMARY | 2024-12-10 14:06 | External Medical Summary ---
Author Name Unknown Address Unknown Organization K01:LABORATORY [facility] [place] - [address] [place] [address] Laboratory Report Ordering Provider Test Date Status KATYA POP 11/24/2024 01:51:49 Final Observation Date Value Abnormality Reference (Units ) Status Body temperature 11/24/2024 01:51:49 37.0 (C) Final pH of Arterial blood 11/24/2024 01:51:49 7.326 Below low normal 7.350-7.450 (units) Final Carbon dioxide [Partial pressure] in Arterial blood 11/24/2024 01:51:49 42.3 35.0-45.0 (mmHg) Final Oxygen [Partial pressure] in Arterial blood 11/24/2024 01:51:49 91.6 75.0-100.0 (mmHg) Final Base excess, Arterial 11/24/2024 01:51:49 -3.9 Below low normal -2.0-2.0 (mmol/L) Final Hemoglobin [Mass/volume] in Blood by Oximetry 11/24/2024 01:51:49 14.0 14.0-16.8 (g/dL) Final Oxyhemoglobin, Arterial (FO2HB) 11/24/2024 01:51:49 94.8 94.0-99.0 (% total Hgb) Final Carboxyhemoglobin 11/24/2024 01:51:49 1.4 <=1.5 (% total Hgb) Final Smokers: 0-9.0 % Methemoglobin 11/24/2024 01:51:49 0.8 <=1.5 (% total Hgb) Final Deoxyhemoglobin/Hemog lobin.total in Arterial blood 11/24/2024 01:51:49 3.0 0.0-5.0 (% total Hgb) Final Oxygen content in Arterial blood 11/24/2024 01:51:49 18.8 15.0-24.0 (%vol) Final Oxygen/Total gas setting [Volume Fraction] Ventilator 11/24/2024 01:51:49 Not Provided (%) Final O2 FLOW, ARTERIAL - [facility] 11/24/2024 01:51:49 Not Provided (L/min) Final Bicarbonate, Venous, POC (i-STAT) 11/24/2024 01:51:49 21.4 Below low normal 23.0-31.0 (mmol/L) Final Performing Location LABORATORY [facility] [place] - [address] [facility] [address]
--- OUTSIDE RECORDS SUMMARY | 2024-12-10 14:06 | External Medical Summary ---
Author Name Unknown Address Unknown Organization K01:LABORATORY [facility] - [address] [place] [address] Laboratory Report Ordering Provider Test Date Status KATYA POP 11/24/2024 05:05:29 Final Observation Date Value Abnormality Reference (Units ) Status LDL, (direct) 11/24/2024 05:05:29 64 <=129 (mg/dL) Final LDL Cholesterol Reference Ra nges (mg/dL):
<70 � � Target level for high risk ASCVD patient
<100 � �Optimal for general population
100-129 Near optimal for general population
130-159 Borderline high
160-189 High
>=190 � Very high Performing Location [facility] - [address] [place] [address]
--- OUTSIDE RECORDS SUMMARY | 2024-12-10 14:06 | External Medical Summary | Summary of Care ---
Author Name Unknown Organization [facility] Address [address] [place] [address] Phone [phone] Care Team Providers Care Leather Belt Maker Name Role Phone Tai Bal PA-C Primary Care Provide r Reason for Visit * Reason Comments Retrieval [facility] ED bed 1 to [facility] [place] 26 Encounter Details Date Type Department Care Team (Late st Contact Info) Description 11/23/2024 9:05 PM EDT Documentation [facility] [address] [place] [phone] 4, [facility] [address], [place] [id number] Embolic stroke (HCC)* Allergies Active Allergy Reactions [...] this encounter Progress Notes * Juan Carlos Vernon EMT-P - 11/23/2024 11:55 PM EDT MEDICARE AMBULANCE INFORMATION SHEET Patient Admitted as an Inpatient: no Certifying Physician/Ordering Service:[facility] ED Physician - Travis Rosales D.O. [place] [address] [address] [facility] [place] [address] [place] Police Sergeant (zip code required): Hospital - [facility], [address] [place] [address] Destination (Specify Name/Address): [facility] [address] [facility]; [place] [address] Patient transported to nearest facility (capable of [...] Influenza Vaccine (FLU shot) (#1) 2024 07/26/2019, 06/10/2018 GFR 11/23/2025 11/23/2024 Cologuard 03/23/2027 03/23/2024, 03/17/2024 Colorectal Cancer [...] Discussed due to patient's condition Care Teams Leather Belt Maker Relationship Specialty Start Date End Date Tai Bal PA-C PCP - General Physician Grain Grader 05/16/22 documented as of this encounter
--- OUTSIDE RECORDS SUMMARY | 2024-12-10 14:06 | External Medical Summary ---
Author Name Unknown Address Unknown Organization K01:LABORATORY [place] [address] [address] [facility] [address] Laboratory Report Ordering Provider Test Date Status KATYA POP 11/24/2024 12:05:02 Final Observation Date Value Abnormality Reference (Units ) Status WBC, Total 11/24/2024 12:05:02 14.31 Above high normal 4.00-10.80 (K/uL) Final RBC 11/24/2024 12:05:02 3.98 4.50-5.25 (M/uL) Final Hemoglobin 11/24/2024 12:05:02 11.9 Below low normal 14.0-16.8 (g/dL) Final HCT 11/24/2024 12:05:02 34.8 Below low normal 40.0-48.4 (%) Final MCV 11/24/2024 12:05:02 87.4 82.0-99.5 (fL) Final MCH 11/24/2024 12:05:02 29.9 27.0-34.0 (pg) Final MCHC 11/24/2024 12:05:02 34.2 32.0-36.0 (g/dL) Final RDW 11/24/2024 12:05:02 14.8 11.5-15.5 (%) Final Platelets 11/24/2024 12:05:02 169 140-400 (K/uL) Final MPV 11/24/2024 12:05:02 11.7 6.6-11.1 (fL) Final Nucleated erythrocytes/100 leukocytes [Ratio] in Blood by Automated count 11/24/2024 12:05:02 0 <=0 (/100 WBCs) Final Performing Location LABOR[place]ORY [facility] [place] [address] [place] [address]
--- OUTSIDE RECORDS SUMMARY | 2024-12-10 14:06 | External Medical Summary ---
Author Name Unknown Address Unknown Organization K01:LABORATORY [facility] - [address] [place] [address] Laboratory Report Ordering Provider Test Date Status KATYA POP 11/24/2024 01:51:49 Final Observation Date Value Abnormality Reference (Units ) Status Magnesium 11/24/2024 01:51:49 1.7 1.5-2.6 (m g/dL) Final Performing Location [facility] - [address] [place] [address]
--- OUTSIDE RECORDS SUMMARY | 2024-12-10 14:06 | External Medical Summary ---
Author Name Unknown Address Unknown Organization K01:LABORATORY [facility] - [address] [facility] Radhika [place] [address] Laboratory Report Ordering Provider Test Date Status ALIE SERRANO 11/23/2024 23:45:02 Final Observation Date Value Abnormality Reference (Units ) Status Body temperature 11/23/2024 23:45:02 37.0 (C) Final pH of Arterial blood 11/23/2024 23:45:02 7.330 Below low normal 7.350-7.450 (units) Final Carbon dioxide [Partial pressure] in Arterial blood 11/23/2024 23:45:02 41.7 35.0-45.0 (mmHg) Final Oxygen [Partial pressure] in Arterial blood 11/23/2024 23:45:02 100.0 75.0-100.0 (mmHg) Final Base excess, Arterial 11/23/2024 23:45:02 -3.8 Below low normal -2.0-2.0 (mmol/L) Final Hemoglobin [Mass/volume] in Blood by Oximetry 11/23/2024 23:45:02 13.0 Below low normal 14.0-16.8 (g/dL) Final Oxyhemoglobin, Arterial (FO2HB) 11/23/2024 23:45:02 95.5 94.0-99.0 (% total Hgb) Final Carboxyhemoglobin 11/23/2024 23:45:02 1.4 <=1.5 (% total Hgb) Final Smokers: 0-9.0 % Methemoglobin 11/23/2024 23:45:02 0.4 <=1.5 (% total Hgb) Final Deoxyhemoglobin/Hemog lobin.total in Arterial blood 11/23/2024 23:45:02 2.7 0.0-5.0 (% total Hgb) Final Oxygen content in Arterial blood 11/23/2024 23:45:02 17.6 15.0-24.0 (%vol) Final Potassium, Whole Blood 11/23/2024 23:45:02 3.6 3.5-5.1 (mmol/L) Final Sodium, Whole Blood 11/23/2024 23:45:02 134 Below low normal 135-146 (mmol/L) Final Chloride, Whole Blood 11/23/2024 23:45:02 110 Above high normal 98-107 (mmol/L) Final Calcium.ionized [Moles/volume] in Blood by Ion-selective membrane electrode (ISE) 11/23/2024 23:45:02 0.97 Below low normal 1.13-1.32 (mmol/L) Final Anion gap, Whole Blood 11/23/2024 23:45:02 2.1 Below low normal 7.0-15.0 (mmol/L) Final Glucose, whole blood 11/23/2024 23:45:02 210 Above high normal 70-120 (mg/dL) Final Oxygen/Total gas setting [Volume Fraction] Ventilator 11/23/2024 23:45:02 Not Provided (%) Final O2 FLOW, [facility] - [facility] 11/23/2024 23:45:02 Not Provided (L/min) Final Bicarbonate, Venous, POC (i-STAT) 11/23/2024 23:45:02 21.4 Below low normal 23.0-31.0 (mmol/L) Final Performing Location LABORATORY [facility] - [address] [facility] [address]
--- OUTSIDE RECORDS SUMMARY | 2024-12-10 14:07 | External Medical Summary | Continuity of Care Document ---
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 Suman Cueto JR, MD Onset: 06/10/2018 Embolic stroke Suman Cueto JR, MD Onset: 1 Right hemiparesis Suman Cueto JR, MD Onset: 06/10/2018 Hyperlipidemia Suman Cueto JR, MD Onset: 1 Essential hypertension Suman Cueto JR, MD O nset: 06/10/2018 Mitral leaflet abnormality Suman Cueto JR, MD Onset: 06/10/2018 Replacement of mitral valve Suman Cueto JR, MD Onset: 06/10/2018 Social History Type Date Description Comments Sex Male Tobacco Use Reviewed: 07/06/24 Never Smoked Cigarette s Tobacco Use Reviewed: 07/06/24 Never Smoked Cigars Tobacco Use Reviewed: 07/06/24 Never Smoked A Pipe Smoking Status Reviewed: 07/06/24 Never Smoked A Pipe Smokeless Tobacco 07/06/2024 Never Used Smokeless To bacco ETOH Use Denies alcohol use Recreational Drug Use Never Used Drugs Allergies and adverse reactions Active Allergies Criticality Reaction | Severity Comments Date Penicillin Unable to assess criticality 06/10/2018 Medications Active Medications SIG Qnty Indications Order ing Provider Date Cyclobenzaprine HCL5mg Tablets take 1 tablet by mouth twice a day as needed for muscle spasms 30tabs M25.512 Radha Bob MD 07/06/2024 Lidocaine4% Patches apply to the affected area as directed 10units M25.512 Radha Bob MD 07/06/2024 Uugabkf7uq Tablets Take 1 Tablet By Mouth Twice Daily 180tabs I34.9 Radha Bob MD 07/04/2021 Mqfgfkhn573548Mutk/GM Cream apply topically to affected area twice daily 90units Radha Bob MD 12/20/2020 Blood Pressure Monitor Auto InflateMisc dx: htn test daily and as needed testing 1units I34.9 Radha Bob MD 09/09/2019 I10 Rfrkvnozdbn80gw Tablets Take One Tablet By Mouth Once Daily 90tabs Radha Bob MD Benazepril DBR93gj Tablets Take One Tabl et By Mouth Once Daily 90tabs Radha Bob MD Amlodipine Gfeyzuux85xt Tablets Take One Tablet By Mouth Once Daily 90tabs Radha Bob MD Metoprolol Succinate ER50mg Tablets ER 24HR Take 1 Tablet By Mouth Twice Daily 180tabs Radha Bob MD Venlafaxine HCL ER75mg Caps ER 24HR Take One Capsule By Mouth Once Daily 90caps Radha Bob MD Immunizations CPT Code Status Date Vaccine Lot # [id number] Given 07/26/2019 Influenza Virus Vaccine, Quadrivalent (Cciiv4), Derived From 1 Given 08/11/2018 Pneumococcal Vaccine/Pneu movax 23 [id number] Given 06/10/2018 Pneumococcal Vaccine/Pneu movax 23 [id number] Given 06/10/2018 Influenza Vacci ne Quadrivalent Preser/Antibiotic Free Im Use [id number] Refused 11/28/2022 Shingrix 67805 Refused 08/15/2022 Influenza Virus Vaccine, Quadrivalent (Cciiv4), Derived From Cell 56739 Refused 07/04/2021 Influenza Virus Vaccine, Quadrivalent (Cciiv4), Derived From Cell [id number] Refused 12/20/2020 Moderna Sars-Co v-2 (Cov-19) vacc,100 mcg/ 0.5 mL 12Y+EMR Doc Only 54389 Refused 09/11/2020 Influenza Virus Vaccine, Quadrivalent (Cciiv4), Derived From Cell Vital Signs Date Vital Result Comment 07/06/2024 12:28pm BP Systolic 128 mmHg BP Diastolic 86 mmHg Body Temperature 97.9 F Heart Rate 54 /min Respiratory Rate 18 /min Weight 262.12 lb Weight 118.900 kg Height 68 inches 5'8" BMI (Body Mass Index) 39.9 kg/m2 O2 % BldC Oximetry 98 % [place] Body Weight 154 lb 03/24/2024 9:26am BP Systolic 108 mmHg BP Diastolic 80 mmHg Body Temperature 97.4 F Heart Rate 84 /min Respiratory Rate 20 /min Weight 254.12 lb Weight 115.271 kg Height 68 inches 5'8" BMI (Body Mass Index) 38.6 kg/m2 O2 % BldC Oximetry 98 % [place] Body Weight 154 lb Procedures Date Code Description Status 07/06/2024 3079F PVRP Diastolic BP 80-89 MMHG Completed 07/06/2024 3074F PVRP Systolic BP <130 mmHg C ompleted 06/30/2024 G9920 Scrning Perf And Negative Co mpleted Medical Devices Description No Information Available Encounters Type Date Location Provider Dx Diagnosis Office Visit 07/06/2024 1:00p Kala Bob MD I10 Essential (pr imary) hypertension E78.5 Hyperlipidemia, unsp ecified I69.951 Hemiplga fol unsp ce rebvasc disease aff right dominant side F33.1 Major depressive dis order, recurrent, moderate M25.512 Pain in left shoulde r Assessments Date Code Description Provider 08/30/2024 I10 Essential (primary) hyperten pamela Bal PA-C 08/30/2024 E78.5 Hyperlipidemia, unspecified Tai Bal PA-C 07/30/2024 I10 Essential (primary) hyperten pamela Bal PA-C 07/30/2024 E78.5 Hyperlipidemia, unspecified Tai Bal PA-C 07/06/2024 I10 Essential (primary) hyperten pamela Bob, MD 07/06/2024 E78.5 Hyperlipidemia, unspecified Radha Bob MD 07/06/2024 I69.951 Hemiplegia and h emiparesis following unspecified cerebrovascular disease affecting right dominant side Radha Bob MD 07/06/2024 F33.1 Major depressive disorder, recurrent, moderate Radha Bob MD 07/06/2024 M25.512 Pain in left shoulder Alva Bob MD 06/30/2024 I10 Essential (primary) hyperten pamela Bal PA-C 06/30/2024 E78.5 Hyperlipidemia, unspecified Tai Bal PA-C 06/30/2024 F33.1 Major depressive disorder, recurrent, moderate Tai Bal PA-C 04/30/2024 I10 Essential (primary) chad Bal PA-C 04/30/2024 E78.5 Hyperlipidemia, unspecified Tai Bal PA-C Plan of Treatment 07/06/2024 - Radha Bob MD* I10 Essential (primary) hypertension* Comments: * BP stable Continue current medication * Follow up:* schedule for fasting labs next week and f/up in 3 months * E78.5 Hyperlipidemia, unspecified* Comments:* continue to follow low fat diet and exercise as tolerated Continue current medication labs ordered * I69.951 Hemiplegia and hemiparesis following unspecified cerebrovascular disease affecting right dominant side* Comments:* stable Continue current medication * F33.1 Major depressive disorder, recurrent, moderate* Comments:* stable Denies any SI/HI Continue current medication * M25.512 Pain in left shoulder* New Medication:* Cyclobenzaprine HCL 5 mg - take 1 tablet by mouth twice a day as needed for muscle spasms * Lidocaine 4 % - apply to the affected area as directed * Comments:* will prescribe muscle relaxant and lidocaine patch recommended to take Tylenol as needed for pain Functional Status Description No Information Available Mental Status Description No Information Available Referrals Refer to Dr Reason for Referral Status Appt [facility] Speech And Occupational Therapy Speech Therapy Closed [phone]
--- OUTSIDE RECORDS SUMMARY | 2024-12-10 14:07 | External Medical Summary ---
Author Name Unknown Address Unknown Organization K1G:LABORATORY [facility] - [address] [facility] [address] Laboratory Report Ordering Provider Test Date Status ROBB PATINO 11/23/2024 19:02:05 Fin al Observation Date Value Abnormality Reference (Units ) Status SYNC LEUKOCYTES IN BLOOD BY AUTOMATED COUNT 11/23/2024 19:02:05 7.06 4.00-10.80 (K/uL) Final Segs 11/23/2024 19:02:05 68.3 40.0-75.0 (%) Final Lymphs % 11/23/2024 19:02:05 23.5 18.0-42.0 (%) Final Monos 11/23/2024 19:02:05 6.9 1.0-11.0 (%) Final Eosinophils 11/23/2024 19:02:05 1.0 0.0-6.0 (%) Final Basos 11/23/2024 19:02:05 0.3 0.0-2.0 (%) Final Absolute Segs 11/23/2024 19:02:05 4.82 1.80-7.70 (K/uL) Final Lymphs, absolute 11/23/2024 19:02:05 1.66 1.00-4.80 (K/ul) Final Monos, Abs 11/23/2024 19:02:05 0.49 0.00-1.10 (K/uL) Final Eos, Abs 11/23/2024 19:02:05 0.07 0.00-0.70 (K/uL) Final Basos, Abs 11/23/2024 19:02:05 0.02 0.00-0.20 (K/uL) Final Performing Location LABORATORY [facility] - [address] [facility] [address]
--- OUTSIDE RECORDS SUMMARY | 2024-12-10 14:07 | External Medical Summary ---
Author Name Unknown Address Unknown Organization K1G:LABORATORY [facility] - [address] [place] [id number] Laboratory Report Ordering Provider Test Date Status ROBB PATINO 11/23/2024 19:02:05 Fin al Observation Date Value Abnormality Reference (Units ) Status Ethanol 11/23/2024 19:02:05 Negative Negative Final Performing Location LABORATORY [facility] - [address] [facility] [address]
--- OUTSIDE RECORDS SUMMARY | 2024-12-10 14:07 | External Medical Summary ---
Author Name Unknown Address Unknown Organization K1G:LABORATORY [facility] - [address] [place] [phone] Laboratory Report Ordering Provider Test Date Status ROBB PATINO 11/23/2024 19:02:05 Fin al Observation Date Value Abnormality Reference (Units ) Status Troponin T 11/23/2024 19:02:05 12 <=22 (ng/ L) Final Performing Location LABORATORY [facility] - [address] [facility] [address]
--- OUTSIDE RECORDS SUMMARY | 2024-12-10 14:07 | External Medical Summary ---
Author Name Unknown Address Unknown Organization K1G:LABORATORY [facility] - [address] [place] [phone] Laboratory Report Ordering Provider Test Date Status ROBB PATINO 11/23/2024 19:02:05 Fin al Observation Date Value Abnormality Reference (Units ) Status Lactic Acid, Whole Blood 11/23/2024 19:02:05 4.1 Above upper panic limits 0.4-2.0 (mmol/L) Final Performing Location LABORATORY [facility] - [address] [place] [id number]
--- OUTSIDE RECORDS SUMMARY | 2024-12-10 14:07 | External Medical Summary | Continuity of Care Document ---
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 Suman Cueto JR, MD Onset: 06/10/2018 Embolic stroke Suman Cueto JR, MD Onset: 1 Right hemiparesis Suman Cueto JR, MD Onset: 06/10/2018 Hyperlipidemia Suman Cueto JR, MD Onset: 1 Essential hypertension Suman Cueto JR, MD O nset: 06/10/2018 Mitral leaflet abnormality Suman Cueto JR, MD Onset: 06/10/2018 Replacement of mitral valve Suamn Cueto JR, MD Onset: 06/10/2018 Social History [...] directed 10units M25.512 Radha Bob MD 07/06/2024 Frtyhwe6wb Tablets Take 1 Tablet By Mouth Twice Daily 180tabs I34.9 Radha Bob MD 07/04/2021 Qraxfgxy195569Xhbu/GM Cream apply topically to affected area twice daily 90units Radha Bob MD 12/20/2020 Blood Pressure Monitor Auto InflateMisc dx: htn test daily and as needed testing 1units I34.9 Radha Bob MD 09/09/2019 I10 Zxcwojszqck73cw Tablets Take One Tablet By Mouth Once Daily 90tabs Radha Bob MD Benazepril INJ93in Tablets Take One Tabl et By Mouth Once Daily 90tabs Radha Bob MD Amlodipine Rcmagwkq91qh Tablets Take One Tablet By Mouth Once Daily 90tabs Radha Bob MD Metoprolol Succinate ER50mg Tablets ER 24HR Take 1 Tablet By Mouth Twice Daily 180tabs Radha Bob MD Venlafaxine HCL ER75mg Caps ER 24HR Take One Capsule By Mouth Once Daily 90caps Radha Bob MD Immunizations CPT Code Status Date Vaccine Lot # 96119 Given 07/26/2019 Influenza Virus Vaccine, Quadrivalent (Cciiv4), Derived From 7 Given 08/11/2018 Pneumococcal Vaccine/Pneu movax 23 [id number] 55311 Given 06/10/2018 Pneumococcal Vaccine/Pneu movax 23 [id number] 02921 Given 06/10/2018 Influenza Vacci ne Quadrivalent Preser/Antibiotic Free Im Use [id number] 58276 Refused 11/28/2022 Shingrix 13395 Refused 08/15/2022 Influenza Virus Vaccine, Quadrivalent (Cciiv4), Derived From Cell 98530 Refused 07/04/2021 Influenza Virus Vaccine, Quadrivalent (Cciiv4), Derived From Cell 37958 Refused 12/20/2020 Moderna Sars-Co v-2 (Cov-19) vacc,100 mcg/ 0.5 mL 12Y+EMR Doc Only 61638 Refused 09/11/2020 Influenza Virus Vaccine, Quadrivalent (Cciiv4), Derived From Cell Vital Signs Date Vital Result Comment 07/06/2024 12:28pm BP Systolic 128 mmHg BP Diastolic 86 mmHg Body Temperature 97.9 F Heart Rate 54 /min Respiratory Rate 18 /min Weight 262.12 lb Weight 118.900 kg Height 68 inches 5'8" BMI (Body Mass Index) 39.9 kg/m2 O2 % BldC Oximetry 98 % [place] Body Weight 154 lb 03/24/2024 9:26am BP Systolic 108 mmHg BP Diastolic 80 mmHg Body Temperature 97.4 F Heart Rate 84 /min Respiratory Rate 20 /min Weight 254.12 lb Weight 115.271 kg Height 68 inches 5'8" BMI (Body Mass Index) 38.6 kg/m2 O2 % BldC Oximetry 98 % [place] Body Weight 154 lb Results Test Acquired Date Facility Test Result H/L Range N ote Laboratory test finding 03/17/2024 [facility], [address], [address] [place] [address] [phone] Cologuard Negative Negative 1 1 NEGATIVE TEST RESULT . A negative Cologuard result indicates a low likelihood that a colorectal cancer (CRC) or advanced adenoma (adenomatous polyps with more advanced pre-malignant features) is present. The chance that a person with a negative Cologuard test has a colorectal cancer is less than 1 in 1500 (negative predictive value >99.9%) or has an advanced adenoma is less than 5.3% (negative predictive value 94.7%). These data are based on a prospective cross-sectional study of 10,000 individuals at average risk for colorectal cancer who were screened with both Cologuard and colonoscopy. (Alison Singh al, N Engl J Med 2014;370(14):4236-7457) The normal value (reference range) for this assay is negative. COLOGUARD RE-SCREENING RECOMMENDATION: Periodic colorectal cancer screening is an important part of preventive healthcare for asymptomatic individuals at average risk for colorectal cancer. Following a negative Cologuard result, the [place] [employer] Society and U.S. Multi-Society Task Force screening guidelines recommend a Cologuard re-screening interval of 3 years. References: [place] [employer] Guideline for Colorectal Cancer Screening: https://www.cancer.org/cancer/tehmr-qsehgr-jxlqoh/txbbgkugl-kfsklagyz-yprigsc/ac s-recommendations.html.; Marck DK, Rosa ANGLIN, Shaniqua ChaoK, Colorectal Cancer Screening: Recommendations for Physicians and Patients from the U.S. Multi-Society Task Force on Colorectal Cancer Screening , Am J Gastroenterology 2017; 112:4849-0531. TEST DESCRIPTION: Composite algorithmic analysis of stool DNA-biomarkers with hemoglobin immunoassay. Quantitative values of individual biomarkers are not reportable and are not associated with individual biomarker result reference ranges. Cologuard is intended for colorectal cancer screening of adults of either sex, 45 years or older, who are at average-risk for colorectal cancer (CRC). Cologuard has been approved for use by the U.S. FDA. The performance of Cologuard was established in a cross sectional study of average-risk adults aged 50-84. Cologuard performance in patients ages 45 to 49 years was estimated by sub-group analysis of near-age groups. Colonoscopies performed for a positive result may find as the most clinically significant lesion: colorectal cancer [4.0%], advanced adenoma (including sessile serrated polyps greater than or equal to 1cm diameter) [20%] or non- advanced adenoma [31%]; or no colorectal neoplasia [45%]. These estimates are derived from a prospective cross-sectional screening study of 10,000 individuals at average risk for colorectal cancer who were screened with both Cologuard and colonoscopy. (Alison Newman et al, N Engl J Med 2014;370(14):3162-2611.) Cologuard may produce a false negative or false positive result (no colorectal cancer or precancerous polyp present at colonoscopy follow up). A negative Cologuard test result does not guarantee the absence of CRC or advanced adenoma (pre-cancer). The current Cologuard screening interval is every 3 years. ([place] [employer] Society and U.S. Multi-Society Task Force). Cologuard performance data in a 10,000 patient pivotal study using colonoscopy as the reference method can be accessed at the following location: [email or web address]/results. Additional description of the Cologuard test process, warnings and precautions can be found at www.[email or web address]. Procedures Date Code Description Status 07/06/2024 3079F PVRP Diastolic BP 80-89 MMHG Completed 07/06/2024 3074F PVRP Systolic BP <130 mmHg C ompleted 03/24/2024 G2211 Continuation of care e/m vis it add on Completed 02/24/2024 G2211 Continuation of care e/m vis it add on Completed 02/24/2024 3078F PVRP Diastolic BP <80 mmHg C ompleted 02/24/2024 3075F PVRP Systolic BP 130 To 139 MMHG Completed Medical Devices Description No Information Available Encounters Type Date Location Provider Dx Diagnosis Office Visit 07/06/2024 1:00p Kala Bob MD I10 Essential (pr imary) hypertension E78.5 Hyperlipidemia, unsp ecified I69.951 Hemiplga fol unsp ce rebvasc disease aff right dominant side F33.1 Major depressive dis order, recurrent, moderate M25.512 Pain in left shoulde r Office Visit 03/24/2024 10:00a Kala Bal PA-C 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 I69.951 Hemiplga fol unsp ce rebvasc disease aff right dominant side R26.0 Ataxic gait Office Visit 02/24/2024 1:00p Kala groves PA-C I10 Essential (primary) hypertension E78.5 Hyperlipidemia, unsp ecified 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 I69.951 Hemiplga fol unsp ce rebvasc disease aff right dominant side I34.9 Nonrheumatic mitral valve disorder, unspecified Assessments Date Code Description Provider 07/06/2024 I10 Essential (primary) hyperten pamela Radha Bob MD 07/06/2024 E78.5 Hyperlipidemia, unspecified Radha Bob MD 07/06/2024 I69.951 Hemiplegia and h emiparesis following unspecified cerebrovascular disease affecting right dominant side Radha Bob MD 07/06/2024 F33.1 Major depressive disorder, recurrent, moderate Radha Bob MD 07/06/2024 M25.512 Pain in left shoulder Alva Bob MD 04/30/2024 I10 Essential (primary) hyperten pamela Srinivasan JONE BalC 04/30/2024 E78.5 Hyperlipidemia, unspecified Tai TrishaSHUN Medina-C 03/30/2024 I10 Essential (primary) hyperten pamela Srinivasan JONE BalC 03/30/2024 E78.5 Hyperlipidemia, unspecified Tai SHUN Palomo-C 03/24/2024 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 Tai JONE PalomoC 03/24/2024 I69.951 Hemiplegia and h emiparesis following unspecified cerebrovascular disease affecting right dominant side Tai RicoJONE MedinaC 03/24/2024 R26.0 Ataxic gait JONE BatesC 02/24/2024 I10 Essential (primary) hyperten pamela RicoJONE MedinaC 02/24/2024 E78.5 Hyperlipidemia, unspecified Tai SHUN Palomo-C 02/24/2024 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 Tai JONE PalomoC 02/24/2024 I69.951 Hemiplegia and h emiparesis following unspecified cerebrovascular disease affecting right dominant side Tai JONE PalomoC 02/24/2024 I34.9 Nonrheumatic isabel ral valve disorder, unspecified Tai JONE PalomoC 01/29/2024 I10 Essential (primary) hyperten pamela RicoJONE MedinaC 01/29/2024 E78.5 Hyperlipidemia, unspecified Tai Craig Bal PA-C Plan of Treatment Future Appointment(s):* 10/04/2024 1:30 pm - Radha Bob MD at [facility] 07/06/2024 - Radha Bob MD* I10 Essential (primary) hypertension* Follow up:* schedule for fasting labs next week and f/up in 3 months * E78.5 Hyperlipidemia, unspecified * I69.951 Hemiplegia and hemiparesis following unspecified cerebrovascular disease affecting right dominant side * F33.1 Major depressive disorder, recurrent, moderate * M25.512 Pain in left shoulder* New [...] Description No Information Available Referrals Refer to Reason for Referral Status Appt [facility] Speech [facility] Occupational Therapy Speech Therapy Closed [phone]
--- OUTSIDE RECORDS SUMMARY | 2024-12-10 14:07 | External Medical Summary | Continuity of Care Document ---
Author Name Unknown Organization [place] Address [address] [place] [address] Phone [phone] Care Team Providers Care Footwear Sales Associate Name Role Phone Orthopedics - Sports Medicine Care Team Informat ion Windows Application Administrator Unavailable CPRS-[place] Care Team Information Windows Application Administrator + [phone] Problems Active Problems Provider Date Left sided [...] directed 10units M25.512 Radha Bob MD 07/06/2024 Wjscwcu6ws Tablets Take 1 Tablet By Mouth Twice Daily 180tabs I34.9 Radha Bob MD 07/04/2021 Iawciavh604803Kdhi/GM Cream apply topically to affected area twice daily 90units Radha Bob MD 12/20/2020 Blood Pressure Monitor Auto InflateMisc dx: htn test daily and as needed testing 1units I34.9 Radha Bob MD 09/09/2019 I10 Duudoatrqge80bs Tablets Take One Tablet By Mouth Once Daily 90tabs Radha Bob MD Benazepril LYZ69sl Tablets Take One Tabl et By Mouth Once Daily 90tabs Radha Bob MD Amlodipine Davvqbuh60ja Tablets Take One Tablet By Mouth Once Daily 90tabs Radha Bob MD Metoprolol Succinate ER50mg Tablets ER 24HR Take 1 Tablet By Mouth Twice Daily 180tabs Radha Bob MD Venlafaxine HCL ER75mg Caps ER 24HR Take One Capsule By Mouth Once Daily 90caps Radha Bob MD Immunizations CPT Code Status Date Vaccine Lot # [id number] Given 07/26/2019 Influenza Virus Vaccine, Quadrivalent (Cciiv4), Derived From 2 Given 08/11/2018 Pneumococcal Vaccine/Pneu movax 23 [id number] Given 06/10/2018 Pneumococcal Vaccine/Pneu movax 23 [id number] Given 06/10/2018 Influenza Vacci ne Quadrivalent Preser/Antibiotic Free Im Use [id number] Refused 11/28/2022 Shingrix 53225 Refused 08/15/2022 Influenza Virus Vaccine, Quadrivalent (Cciiv4), Derived From Cell [id number] Refused 07/04/2021 Influenza Virus Vaccine, Quadrivalent (Cciiv4), Derived From Cell [id number] Refused 12/20/2020 Moderna Sars-Co v-2 (Cov-19) vacc,100 mcg/ 0.5 mL 12Y+EMR Doc Only 35805 Refused 09/11/2020 Influenza Virus Vaccine, Quadrivalent (Cciiv4), Derived From Cell Vital Signs Date Vital Result Comment 07/06/2024 12:28pm BP Systolic 128 mmHg BP Diastolic 86 mmHg Body Temperature 97.9 F Heart Rate 54 /min Respiratory Rate 18 /min Weight 262.12 lb Weight 118.900 kg Height 68 inches 5'8" BMI (Body Mass Index) 39.9 kg/m2 O2 % BldC Oximetry 98 % [place] Body Weight 154 lb 03/24/2024 9:26am BP Systolic 108 mmHg BP Diastolic 80 mmHg Body Temperature 97.4 F Heart Rate 84 /min Respiratory Rate 20 /min Weight 254.12 lb Weight 115.271 kg Height 68 inches 5'8" BMI (Body Mass Index) 38.6 kg/m2 O2 % BldC Oximetry 98 % [place] Body Weight 154 lb Results Test Acquired Date Facility Test Result H/L Range N [facility] Laboratory test finding 03/17/2024 [facility], [address], [address] [place] [address] [phone] Cologuard Negative Negative 1 1 NEGATIVE TEST [...] (Alison Singh al, N Engl J Med 2014;370(14):1063-4920) The normal value (reference range) for this assay is negative. COLOGUARD RE-SCREENING RECOMMENDATION: Periodic colorectal cancer screening is an important part of preventive healthcare for asymptomatic individuals at average risk for colorectal cancer. Following a negative Cologuard result, the [place] [employer] and U.S. Multi-Society Task Force screening guidelines recommend a Cologuard re-screening interval of 3 years. References: [place] [employer] Guideline for Colorectal Cancer Screening: https://www.cancer.org/cancer/izqnt-hjjfsz-jptwqg/rjyqbrdws-tzpmiayar-iccdvym/ac s-recommendations.html.; Marck DK, Rosa ANGLIN, Shaniqua ChaoK, Colorectal Cancer Screening: Recommendations for Physicians and Patients from the U.S. Multi-Society Task Force on Colorectal Cancer Screening , Am J Gastroenterology 2017; 112:0378-4666. TEST DESCRIPTION: Composite algorithmic analysis of stool [...] Newman et al, N Engl J Med 2014;370(14):8792-0618.) Cologuard may produce a false negative or false positive result (no colorectal cancer or precancerous polyp present at colonoscopy follow up). A negative Cologuard test result does not guarantee the absence of CRC or advanced adenoma (pre-cancer). The current Cologuard screening interval is every 3 years. ([place] [employer] and U.S. Multi-Society Task Force). Cologuard performance data in a 10,000 patient pivotal study using colonoscopy as the reference method can be accessed at the following location: [email or web address]/results. Additional description of the Cologuard test process, warnings and precautions can be found at [email or web address]. 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 Radha Bob MD 07/06/2024 F33.1 Major depressive disorder, recurrent, moderate Radha Bob MD 07/06/2024 M25.512 Pain in left shoulder Alva Bob MD 04/30/2024 I10 Essential (primary) hyperten pamela Bal PA-C 04/30/2024 E78.5 Hyperlipidemia, unspecified Tai Bal PA-C 03/30/2024 I10 Essential (primary) hyperten pamela Bal PA-C 03/30/2024 E78.5 Hyperlipidemia, unspecified Tai Bal PA-C 03/24/2024 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 Tai Srinivasan NADIYA Bal 03/24/2024 I69.951 Hemiplegia and h emiparesis following unspecified cerebrovascular disease affecting right dominant side Tai Srinivasan NADIYA Bal 03/24/2024 R26.0 Ataxic gait Tai Srinivasan Nando hopkins PA-C 02/24/2024 I10 Essential (primary) hyperten pamela Srinivasan NADIYA Bal 02/24/2024 E78.5 Hyperlipidemia, unspecified Tai Srinivasan NADIYA Bal 02/24/2024 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 Tai Srinivasan NADIYA Bal 02/24/2024 I69.951 Hemiplegia and h emiparesis following unspecified cerebrovascular disease affecting right dominant side Tai Srinivasan NADIYA Bal 02/24/2024 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
--- OUTSIDE RECORDS SUMMARY | 2024-12-10 14:07 | External Medical Summary | Continuity of Care Document ---
Author Name Unknown Organization [place] Address [address] [place] [address] Phone [phone] Care Team Providers Care Beauty Artist Name Role Phone Orthopedics - Sports Medicine Care Team Informat ion Linen Sorter Unavailable CPRS-[place] Care Team Information Linen Sorter + [phone] Problems Active Problems Provider Date Left sided [...] directed 10units M25.512 Radha Bob MD 07/06/2024 Hovtpbx4yv Tablets Take 1 Tablet By Mouth Twice Daily 180tabs I34.9 Radha Bob MD 07/04/2021 Oyejahtr708952Pkng/GM Cream apply topically to affected area twice daily 90units Radha Bob MD 12/20/2020 Blood Pressure Monitor Auto InflateMisc dx: htn test daily and as needed testing 1units I34.9 Radha Bob MD 09/09/2019 I10 Hjnsxlhevyb23aq Tablets Take One Tablet By Mouth Once Daily 90tabs Radha Bob MD Benazepril FDE57if Tablets Take One Tabl et By Mouth Once Daily 90tabs Radha Bob MD Amlodipine Zmjpzhfr47ke Tablets Take One Tablet By Mouth Once Daily 90tabs Radha Bob MD Metoprolol Succinate ER50mg Tablets ER 24HR Take 1 Tablet By Mouth Twice Daily 180tabs Radha Bob MD Venlafaxine HCL ER75mg Caps ER 24HR Take One Capsule By Mouth Once Daily 90caps Radha Bob MD Immunizations CPT Code Status Date Vaccine Lot # [id number] Given 07/26/2019 Influenza Virus Vaccine, Quadrivalent (Cciiv4), Derived From 5 Given 08/11/2018 Pneumococcal Vaccine/Pneu movax 23 [id number] 87832 Given 06/10/2018 Pneumococcal Vaccine/Pneu movax 23 [id number] 53033 Given 06/10/2018 Influenza Vacci ne Quadrivalent Preser/Antibiotic Free Im Use [id number] 27081 Refused 11/28/2022 Shingrix 01633 Refused 08/15/2022 Influenza Virus Vaccine, Quadrivalent (Cciiv4), Derived From Cell [id number] Refused 07/04/2021 Influenza Virus Vaccine, Quadrivalent (Cciiv4), Derived From Cell 93926 Refused 12/20/2020 Moderna Sars-Co v-2 (Cov-19) vacc,100 mcg/ 0.5 mL 12Y+EMR Doc Only 85999 Refused 09/11/2020 Influenza Virus Vaccine, Quadrivalent (Cciiv4), Derived From Cell Vital Signs Date Vital Result Comment 07/06/2024 12:28pm BP Systolic 128 mmHg BP Diastolic 86 mmHg Body Temperature 97.9 F Heart Rate 54 /min Respiratory Rate 18 /min Weight 262.12 lb Weight 118.900 kg Height 68 inches 5'8" BMI (Body Mass Index) 39.9 kg/m2 O2 % BldC Oximetry 98 % [place] Body Weight 154 lb 03/24/2024 9:26am BP Systolic 108 mmHg BP Diastolic 80 mmHg Body Temperature 97.4 F Heart Rate 84 /min Respiratory Rate 20 /min Weight 254.12 lb Weight 115.271 kg Height 68 inches 5'8" BMI (Body Mass Index) 38.6 kg/m2 O2 % BldC Oximetry 98 % [place] Body Weight 154 lb Results Test Acquired Date Facility Test Result H/L Range N [facility] Laboratory test finding 03/17/2024 [facility], [address], [address] [place] [address] [phone] Cologuard Negative Negative 1 1 NEGATIVE TEST [...] (Alison Singh al, N Engl J Med 2014;370(14):0352-2874) The normal value (reference range) for this assay is negative. COLOGUARD RE-SCREENING RECOMMENDATION: Periodic colorectal cancer screening is an important part of preventive healthcare for asymptomatic individuals at average risk for colorectal cancer. Following a negative Cologuard result, the [place] [employer] and U.S. Multi-Society Task Force screening guidelines recommend a Cologuard re-screening interval of 3 years. References: [place] [employer] Guideline for Colorectal Cancer Screening: https://www.cancer.org/cancer/rslev-kdwjza-qhmjkv/jrevfvxgt-sqttppusa-prwzbov/ac s-recommendations.html.; Marck DK, Rosa ANGLIN, Shaniqua ChaoK, Colorectal Cancer Screening: Recommendations for Physicians and Patients from the U.S. Multi-Society Task Force on Colorectal Cancer Screening , Am J Gastroenterology 2017; 112:9574-2107. TEST DESCRIPTION: Composite algorithmic analysis of stool [...] Newman et al, N Engl J Med 2014;370(14):2835-2630.) Cologuard may produce a false negative or false positive result (no colorectal cancer or precancerous polyp present at colonoscopy follow up). A negative Cologuard test result does not guarantee the absence of CRC or advanced adenoma (pre-cancer). The current Cologuard screening interval is every 3 years. ([place] [employer] and U.S. Multi-Society Task Force). Cologuard performance data in a 10,000 patient pivotal study using colonoscopy as the reference method can be accessed at the following location: [email or web address]results. Additional description of the Cologuard test process, warnings and precautions can be found at [email or web address] Procedures Date Code Description Status 03/24/2024 G2211 [...] 1:30 pm - Radha Bob MD at [place] * 07/11/2024 10:00 am - [facility] [place] 07/[facility]/[place] - Radha Bob MD* I10 Essential [...] Speech And Occupational Therapy Speech Therapy Closed [phone]
[2024-12-10] MEDS: DOCUSATE SODIUM/SENNA 50/8.6MG TAB PO PRN (21:16)
[2024-12-10] MEDS: POLYETHYLENE (MIRALAX) 17 GM PACK PO PRN (21:16)
[2024-12-11 05:49] LABS: Basophils # (auto) 0.03 K/uL (0.00-0.20); Basophils % (auto) 0.3 %; Eosinophils % (auto) 1.1 %; Hematocrit (blood only) 33.3 % (42.0-52.0); Immature Granulocytes # (auto) 0.03 K/uL (0.01-0.20); Immature Granulocytes % (auto) 0.3 %; Lymphocytes # (auto) 0.98 K/uL (1.20-3.40); Lymphocytes % (auto) 10.4 %; Mean Corpuscular Hemoglobin 28.9 pg (25.0-34.0); Mean Corpuscular Volume 87.4 fL (80.0-100.0); Mean Platelet Volume 10.5 fL (9.4-12.4); Monocytes # (auto) 0.69 K/uL (0.11-0.59); Monocytes % (auto) 7.3 %; Neutrophils # (auto) 7.61 K/uL (1.40-6.50); Neutrophils % (auto) 80.6 %; Platelet Count 350 K/uL (130-400); RDW Coefficient of Variation 14.7 % (11.5-14.5); RDW Standard Deviation 47.2 fL (36.4-46.3); Red Blood Count 3.81 M/uL (4.70-6.10); White Blood Count 9.44 K/ul (4.8-10.8)
[2024-12-11 06:07] LABS: BUN Creatinine Ratio 17.8 (10-20); Calcium 8.5 mg/dl (8.6-10.3); Creatinine Clr Calc Pharmacy 127.4 ml/min; Potassium 4.3 mmol/L (3.5-5.1)
[2024-12-11 06:13] LABS: INR 3.6 (0.9-1.1); Prothrombin Time 35.3 Seconds (9.0-12.0)
[2024-12-11] MEDS: VENLAFAXINE HCL XR 75 MG CAPXR PO SCH (08:15)
[2024-12-11] MEDS: lisinopril 5 MG TAB PO SCH (08:15)
[2024-12-11] MEDS: TAMSULOSIN HCL 0.4 MG CAP PO SCH (08:15)
[2024-12-11] MEDS: ATORVASTATIN 40 MG TAB PO SCH (08:15)
[2024-12-11] MEDS: amLODIPine BESYLATE 5 MG TAB PO SCH (08:15)
[2024-12-11] MEDS: DOCUSATE SODIUM 100 MG CAP PO PRN (08:18)
--- NOTE | 2024-12-11 09:13 | Discharge Summary ---
Discharge Summary Date of Service December 11, 2024 Principal Dx & Hospital Course #1 = Principal Diagnosis (1) Abdominal hematoma: (2) H/O ischemic left MCA stroke: Plan This patient is a 54-year-old male with remote history of left MCA stroke who presented on 12/10 for right upper quadrant abdominal pain and hypoactive bowel sounds. Found to have a subacute hematoma in the right pelvis on arrival. Morning of discharge on 12/11: Patient remains hemodynamically stable. He does report he had intermittent right upper quadrant pain overnight, which he rates a 5/10 at worst. He is unsure if the lidocaine patches helped. He has been eating and drinking okay. Slept well last night. Mentating well this morning and able to answer yes/no questions much better than yesterday. No longer on supplemental oxygen. Overall, doing much better. #Abdominal hematoma Hemodynamically stable on admission and at time of discharge A/P CT with contrast on arrival suggestive of a subacute hematoma in the right pelvis General Surgery consult appreciated No plan for surgical intervention Per review of [facility] notes, patient's Hgb was 10.5 on 12/03 His Hgb was 11.4 on 12/10 (which is ~1.0 g/dL improvement over the course of the week); Hgb 11.0 on day of discharge Obtained A/P CTA performed on 11/24 at [facility] with the following impression: 1. Hematoma within the right lower abdomen adjacent to the bladder without evidence of active extravasation 2. Small hematoma adjacent to the right femoral access site without evidence of active extravasation 3. 1.5 cm focus of contrast adjacent to the right femoral artery consistent with pseudoaneurysm 4. No splenic hypodensity of the inferior spleen which may represent area of ischemia It appears that this abdominal hematoma was present following the patient's original fall on 11/22 No reported falls or acute trauma at [facility] Do not suspect this is an acute/active bleed However, given patient's new onset of intermittent distress (RUQ abdominal pain and chest pain), patient was monitored overnight Trend H&H #H/o left MCA stroke/ right-sided hemiplegia / expressive aphasia Remote history of patient fall and head strike on Eliquis Patient fell off his couch on 11/22 and hit the side of his head CTA H/N showed a left M1 subocclusion thrombus and P1 cutoff Patient was not a TNK candidate given his last known well Transferred to the [facility] for mechanical thrombectomy There, his brain MRI showed a a left CVA infarct Etiology was suspected to be cardioembolic in the setting of mechanical aortic valve (even though pt was on Eliquis at the time) Discharged to [facility] on 12/02 PT/OT consults appreciated #H/o mechanical aortic valve replacement in 1998 Per review of [facility] notes: PT/INR was 2.2 on 12/04 PT/INR was 3.1 on 12/09 Warfarin was held on 12/09 PT/INR was 3.8 on 12/10 Hold warfarin Trend PT/INR #Chest pain Per nursing staff at [facility], patient reported chest pain 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 Feel at this time the patient is safe to return home with continued H&H monitoring; temporarily hold warfarin until INR <3.5. Admission HPI Per Admitting Provider Gianluca is a 54-year-old male with PMH of left MCA stroke, right sided hemiplegia, expressive aphasia, HTN, anxiety, dyslipidemia, BPH, and aortic valve replacement 1998 (previously on Eliquis). Presented on 12/10 from [facility] for right upper quadrant abdominal pain and hypoactive bowel sounds. Patient is a poor historian on admission due to his history of left CVA infarct and expressive aphasia. No caretakers of any members at bedside. Patient is unsure why he is in the hospital. He is not alert and oriented to location, , month, or purpose. When asked if he has any pain, he reports he does not. Patient reports he does not use supplemental oxygen at home. Patient is mildly tachypneic at 26 RPM at time admission; SpO2 94% on 2L oxy mask. ED course: Acetaminophen 1000 mg IV Unable to obtain ROS at this time given patient's expressive aphasia. Per review of notes sent over from [facility]: Patient coming in for RUQ abdominal pain and hypoactive bowel sounds. Last BM reported to be/04/19/2025. Still passing gas. He is currently on an aggressive bowel regimen. Patient has remote history of left CVA infarct requiring transfer to [facility] where he underwent a mechanical thrombectomy. The etiology was suspected to be cardioembolic in the setting of mechanical aortic valve replacement even though he was on Eliquis at the time. Called [facility]: Spoke with nursing staff (Jerson RN). Per his review, there have been no reported falls or injuries to the abdomen or pelvis since he has been at [facility]. Last night before bed, he did complain of chest pain and was given nitro at 2140, Maalox at 2144, and a suppository at 2300. A troponin was not drawn at this time. He was then in distress again around 0430. Admission Exam Per Admitting Provider General: no acute distress; pleasant affect; non-toxic appearing; well- nourished; cooperative; SpO2 94% on oxy mask 2L HEENT: normocephalic, atraumatic; no scleral icterus; PERRLA w/ EOMs intact; vision and hearing grossly intact Neck: supple; no lymphadenopathy; trachea midline Skin: warm, dry without signs of tenting; no cyanosis; no rashes, bruising, lesions, or erythema noted CV: chest wall NTP; RRR; S1/S2 normal; subtle systolic murmur; mechanical valve present; pulses intact and symmetric at radial, DP, and PT Lungs: no acute respiratory distress; symmetrical chest wall expansion; clear breath sounds across all lung van w/o adventitious sounds; no wheezing ABD: Soft, NTP; patient does endorse TTP on the right upper quadrant and right lower quadrant; purple/superficial bruising noted on the right lower quadrant; BS present; no rebound/guarding; distention secondary to body habitus MSK: no tics or fasciculations; no edema noted in the LEs b/l, nonerythematous; 2/5 right adult crossing guard strength; 5/5 left adult crossing guard strength; 3/5 RLE strength when compared to the left 5/5 Neuro: Not alert and oriented to , location, month, purpose in the hospital; expressive aphasia; no facial droop or slurred speech appreciated; patient does report sensation is intact and symmetric in the upper and lower extremities bilaterally Discharge Exam General: no acute distress; sitting upright in bed eating breakfast; pleasant affect; non-toxic appearing; well-nourished; cooperative; SpO2 93% on room air HEENT: normocephalic, atraumatic; no scleral icterus; PERRLA; vision and hearing intact Neck: supple; trachea midline Skin: warm, dry without signs of tenting; no cyanosis; no rashes, bruising, lesions, or erythema noted CV: chest wall NTP; RRR; S1/S2 normal; no murmurs/rubs/gallops; pulses intact and symmetric at radial, DP, and PT Lungs: no acute respiratory distress; symmetrical chest wall expansion; clear breath sounds across all lung van w/o adventitious sounds; no wheezing ABD: Soft, NTP; right flank and rib cage is NTP; no rashes or bruising noted on the flank or rib cage; BS present; no rebound/guarding; no distention MSK: no tics or fasciculations; no edema noted in the LEs b/l, nonerythematous; patient demonstrates ability to wiggle toes bilaterally Neuro: Again, patient exhibits expressive aphasia, but is able to answer yes or no questions; normal mood and affect; fluent speech; no facial droop appreciated; he reports that sensation is intact and symmetric in the lower extremities Discharge Plan Discharge Items Patient Disposition: Transfer Inpatient Rehab Fac Reason For Visit: ABDOMINAL HEMATOMA Discharge Diagnosis: Abdominal hematoma Activity: Resume your previous activity Non-emergency contact: Primary Care Provider Call non-emergency contact if: you have any medication questions, your symptoms worsen, your pain is not controlled and your temperature is above 101 Follow-up/Referrals: NANY PUENTE [Other] Diet: Regular Addtl Attending Provider Instructions: You were admitted for observation at [facility] from 12/10 to 12/11 for an abdominal hematoma noted on abdomen/pelvic imaging. This hematoma was also present on a prior image of your abdomen and pelvis taken on 11/24, shortly after your fall. It appears that this hematoma is stable. Your hemoglobin levels have remained around ~11.0 without dropping. The pain that you are experiencing in your right upper quadrant is likely secondary to this hematoma. Given that your pain appears to be largely musculoskeletal, recommend applying lidocaine patches to the area of greatest discomfort as needed. Additionally, you did note some right sided chest pain. EKG revealed no acute findings with your heart rhythm, and your troponin level (an enzyme released by the heart and times of stress) was found to be stable; 38->39->39); thus, it is not believed that the pain in the right side of your chest is related to any cardiac etiology. You are safe to return to [facility] at this time. INR on 12/11 was 3.6. Hold warfarin on 12/11. Do not resume warfarin until INR is <3.5. Continue to monitor warfarin levels with PT/INR's daily. Additionally, it is recommended that you obtain a repeat abdomen/pelvic CT in 4 to 6 weeks to assess for resolution of your right abdominal hematoma and bladder wall thickening. A/P CT to be done as an outpatient If you develop any of the following symptoms -severe chest pain, chest palpitations, abdominal pain, fever, chills, night sweats, bruising on the abdomen or flanks, dizziness/lightheadedness with movements -or if you have any new or worsening concerns, please return to the emergency department immediately. It was a pleasure taking care of you. Please reach out with any questions or concerns. Sincerely, Jarad Pablo PA-C Pending Studies at Discharge: No Stand-Alone Forms: My [place], Smoking Cessation Skilled Items Patient informed of condition?: Yes DNR: No Discharge Level of Care: Acute rehab Communicable Disease: No Discharge Prognosis: Stable Lines: None Urinary Catheter: No Medications and DC Order Prescriptions: Continued atorvastatin 40 mg tablet 40 mg PO DAILY Rx Instructions: filled 12/02/34 30 day supply venlafaxine 75 mg capsule,extended release 24hr 75 mg PO DAILY Rx Instructions: last filled 11/15/24 30 day supply tamsulosin 0.4 mg capsule 0.4 mg PO DAILY Rx Instructions: filled 12/02/24 30 day supply baclofen 10 mg tablet 10 mg PO DAILY Rx Instructions: 12/02/24 30 day supply #30 amlodipine 10 mg tablet 2.5 mg PO DAILY Rx Instructions: last filled 11/15/24 30 day supply ondansetron HCl [Zofran] 4 mg Tablet 4 mg PO Q6H PRN (Reason: n/v) sennosides-docusate sodium [Senokot-S] 8.6-50 mg Tablet 1 tab-cap PO .LUNCH PRN (Reason: Constipation) acetaminophen 500 mg Tablet 500 mg PO Q4H PRN (Reason: Fever) bisacodyl 10 mg Suppository 10 mg MO DAILY PRN (Reason: Constipation) docusate sodium 100 mg Capsule 100 mg PO BID PRN (Reason: Constipation) calcium carbonate 500 mg calcium (1,250 mg) Tablet,Chewable 500 mg PO Q8H PRN (Reason: Indigestion) lisinopril 5 mg Tablet 5 mg PO DAILY glucagon 1 mg Recon Soln 1 mg IM DIRECTED PRN (Reason: Hypoglycemia) polyethylene glycol 3350 [Miralax] 17 gram/dose Powder 17 g PO .LUNCH PRN (Reason: Constipation) Dextrose 50% 12.5 g IV DIRECTED PRN (Reason: Hypoglycemia) Dextrose 50% 25 g IV DIRECTED PRN (Reason: Hypoglycemia) Fleet Enema 133 ml MO DAILY PRN (Reason: Constipation) Held warfarin 5 mg tablet 5 mg PO UD Hold Instructions: Resume on 12/12/24. Hold until PT/INR <3.5 Rx Instructions: start date 12.09 21:00:00 target INR 2.5-3.5 stop date 12/09/24 23:59:00 Discontinued acetaminophen 325 mg Tablet 650 mg PO Q4H PRN (Reason: Pain) Discharge Orders: Discharge Order (Routine); Ordered 12/11/24 Ordered By: Jarad Pablo Admission Data Admit Date/Time: 12/10/24 10:47 Attending Provider: Johnnie White Admit Provider: Johnnie White Primary Care Provider: NANY PUENTE Other Providers: Lev Meredith; Johnnie White Hospital Stay Data Consultations 12/10/24 09:17 Consult General Surgery Stat 12/10/24 09:37 ED Decision to Admit Stat Diagnostic Imagining Performed 12/10/24 06:49 CT abd pelvis IV con only Stat Discharge Instructions Given to Patient (Per Discharging Provider) You were admitted for observation at [facility] from 12/10 to 12/11 for an abdominal hematoma noted on abdomen/pelvic imaging. This hematoma was also present on a prior image of your abdomen and pelvis taken on 11/24, shortly after your fall. It appears that this hematoma is stable. Your hemoglobin levels have remained around ~11.0 without dropping. The pain that you are experiencing in your right upper quadrant is likely secondary to this hematoma. Given that your pain appears to be largely musculoskeletal, recommend applying lidocaine patches to the area of greatest discomfort as needed. Additionally, you did note some right sided chest pain. EKG revealed no acute findings with your heart rhythm, and your troponin level (an enzyme released by the heart and times of stress) was found to be stable; 38->39->39); thus, it is not believed that the pain in the right side of your chest is related to any cardiac etiology. You are safe to return to [facility] at this time. INR on 12/11 was 3.6. Hold warfarin on 12/11. Do not resume warfarin until INR is <3.5. Continue to monitor warfarin levels with PT/INR's daily. Additionally, it is recommended that you obtain a repeat abdomen/pelvic CT in 4 to 6 weeks to assess for resolution of your right abdominal hematoma and bladder wall thickening. A/P CT to be done as an outpatient If you develop any of the following symptoms -severe chest pain, chest palpitations, abdominal pain, fever, chills, night sweats, bruising on the abdomen or flanks, dizziness/lightheadedness with movements -or if you have any new or worsening concerns, please return to the emergency department immediately. It was a pleasure taking care of you. Please reach out with any questions or concerns. Sincerely, Jarad Pablo PA-C Total Time Total Time Spent Total Time Spent (In Minutes): 30 Coding [place] [address] INP/OBS DISCH >30 MIN Patient Type Established History Comprehensive Exam Comprehensive Medical Decision Making Moderate Complexity Diagnoses Abdominal hematoma S30.1XXA H/O ischemic left MCA stroke Z86.73
--- NOTE | 2024-12-11 09:24 | Electrocardiogram Report ---
Test Reason : Blood Pressure : */* mmHG Vent. Rate : 78 BPM Atrial Rate : 78 BPM P-R Int : 184 ms QRS Dur : 108 ms QT Int : 380 ms P-R-T Axes : 35 -27 86 degrees QTcB Int : 433 ms Poor data quality, interpretation may be adversely affected Normal sinus rhythm Left ventricular hypertrophy with repolarization abnormality ( R in aVL ) Abnormal ECG When compared with ECG of 10-Dec-2024 05:47, (unconfirmed) No significant change was found Confirmed by Rodrigo Taylor ([id number]) on 12/11/2024 9:24:09 AM Referred By: REFERRED SELF Confirmed By: Rodrigo Taylor
--- NOTE | 2024-12-12 11:19 | Electrocardiogram Report ---
Test Reason : Blood Pressure : */* mmHG Vent. Rate : 100 BPM Atrial Rate : 100 BPM P-R Int : 176 ms QRS Dur : 104 ms QT Int : 342 ms P-R-T Axes : -11 -38 76 degrees QTcB Int : 441 ms Normal sinus rhythm Left axis deviation Moderate voltage criteria for LVH, may be normal variant Abnormal ECG No previous ECGs available Confirmed by Parth Ramirez ([id number]) on 12/12/2024 11:19:01 AM Referred By: REFERRED SELF Confirmed By: Parth Ramirez
== END 2024-12-11 12:31 ==
LOC: EDINP 05:38 → ED 05:38 → 2W 13:50